=== PATIENT | male | born 1950 | race Caucasian/White ===

== ENCOUNTER 2020-03-02 08:20 | Outpatient (REF) | payer MEDICARE, SELFPAY ==
[2020-03-02 10:14] LABS: Cholesterol 219 mg/dL; HDL Cholesterol 34 mg/dL; LDL Cholesterol Calculated 155 mg/dl; Triglycerides 153 mg/dL
== END 2020-03-02 08:21 | disposition home or self-care (01) ==
LOC: HO.LAB 08:20
PROVIDERS: PCP Internal Medicine; Visit Provider Internal Medicine
DX: E78.5 Hyperlipidemia, unspecified (principal)
CPT/HCPCS: 80061

== ENCOUNTER 2020-11-29 08:47 | Outpatient (REF) | payer MEDICARE, SELFPAY ==
[2020-11-29 10:24] LABS: Alanine Aminotransferase 22 U/L (0-40); Albumin Level 3.8 g/dL (3.5-5.0); Alkaline Phosphatase 87 U/L (39-117); Anion Gap 11 (12-20); Aspartate Amino Transferase 25 U/L (5-37); Bilirubin Total 0.5 mg/dL (0.0-1.0); Blood Urea Nitrogen 18 mg/dL (9-16); Calcium 9.6 mg/dL (8.4-10.2); Carbon Dioxide 28 mmol/L (22-29); Chloride 107 mmol/L (96-108); Estimated Glomerular Filt Rate > 60; Glucose Fasting 95 mg/dL (60-99); Potassium 4.9 mmol/L (3.3-5.1); Sodium 141 mmol/L (135-145); Total Protein 6.8 g/dL (6.5-8.0)
[2020-11-29 10:48] LABS: Prostate Specific Antigen 1.07 ng/mL (<0.05-4.0)
== END 2020-11-29 08:48 | disposition home or self-care (01) ==
LOC: HO.LAB 08:47
PROVIDERS: PCP Internal Medicine; Visit Provider Nurse Practitioner Family
DX: Z13.1 Encounter for screening for diabetes mellitus (principal); Z12.5 Encounter for screening for malignant neoplasm of prostate
CPT/HCPCS: 36415; 80053; 84153

== ENCOUNTER 2020-12-06 18:04 | Emergency (ER) | payer MEDICARE, SELFPAY ==
--- NOTE | ~2020-12-06 | XR_ITS ---
EXAMINATION: Right thumb CLINICAL INFORMATION: thumb vs supervisor metal hanging COMPARISON: None TECHNIQUE: Frontal view of the hand. 2 cone-down views of the right thumb. FINDINGS: There is a soft tissue laceration of the distal right thumb. There is a comminuted fracture of the distal tuft of the distal phalanx of the right thumb. There is displacement of fracture fragments. No radiopaque foreign body. XR/XR finger RT min 2V IMPRESSION: Soft tissue laceration of the distal thumb. Comminuted fracture of the distal phalanx involving the distal tuft of the thumb.
--- NOTE | 2020-12-06 18:19 | ED_ITS ---
HPI - Wound/Laceration General Chief Complaint: Wound/Laceration Stated Complaint: thumb lac Source: patient Mode of arrival: ambulatory Limitations: no limitations History of Present Illness HPI narrative: 70-year-old male presents with thumb amputation. 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 Received his last Tdap vaccine several months ago. Onset (ago): minute(s) (Within 30 minutes of arrival) Extremity Location: left: hand (thumb) Place: home Patient tetanus UTD: Yes Context: accidental Associated symptoms: pain Treatments prior to arrival: bandage Related Data Previous Rx's Medication Instructions Recorded clonazepam 0.5 mg tablet 0.5 mg PO TID #30 tab 07/09/20 clotrimazole-betamethasone 1 1 appl TOPICAL BID 14 Days #45 g 07/09/20 %-0.05 % topical cream vardenafil 20 mg tablet (Levitra) 20 mg PO DAILY #30 tab 09/20/20 amoxicillin 875 mg-potassium 1 tab PO Q12H 10 Days #20 tab 12/06/20 clavulanate 125 mg tablet (Augmentin) oxycodone 5 mg tablet 5 mg PO Q4H PRN #30 tab 12/06/20 Allergies Allergy/AdvReac Type Severity Reaction Status Date / Time acetaminophen [Tylenol] Allergy Unknown rash Verified 11/30/20 10:39 aspirin Allergy Unknown bruising Verified 11/30/20 10:39 atorvastatin Allergy Unknown muscle Verified 11/30/20 10:39 aches, forgetfulness glipizide Allergy Unknown anxiety Verified 11/30/20 10:39 Review of Systems Review of Systems: Constitutional: No Fever, No Chills ENT/Mouth: No Ear Pain, No Hoarseness, No sore throat Eyes: No Eye Pain, No Swelling, No Redness, No Foreign Body Cardiovascular: No Chest Pain, No SOB Respiratory: No Cough, No Dyspnea Gastrointestinal: No Nausea, No Vomiting, No Diarrhea, No abdominal Pain Genitourinary: No Dysuria, No Hematuria Musculoskeletal: positive left thumb pain and amputation, No Myalgias, No Joint Swelling Skin: No Skin lacerations, No rash Neuro: No Weakness, No Numbness, No Paresthesias, No Loss of Consciousness, No Dizziness, No Headache Psych: No Anxiety/Panic, No Depression Heme/Lymph: no easy bruising, no Lymphadenopathy Endocrine: No Polyuria, No Polydipsia Yes all other systems are reviewed and are negative [facility] Past Medical History Attestation statement: The following information was validated with the patient. Source: old records reviewed Medical History Hyperlipidemia Obesity Screening for colon cancer Screening for diabetes mellitus Screening for prostate cancer Surgical History History of cholecystectomy History of colonoscopy History of repair of rotator cuff History of surgery on arm History of tooth extraction Family History Family History Father CVD (cardiovascular disease) Mother Stroke Diabetes Brother Coronary artery sclerosis Social History Social History Housing: House Alcohol intake: never Patient Tobacco Use Status: Current everyday Tobacco user e-Cigarette/Vaping Use: Never Used Second Hand Smoke Exposure: No Advance Directives: No Advance Directives Information Provided: Yes service: No Current occupational status: retired Physical Exam Vital Signs: Vital Signs: Last Vital Signs Temp 98.1 F 12/06/20 18:22 Pulse 58 12/06/20 20:49 Resp 17 12/06/20 20:49 BP 162/88 H 12/06/20 20:49 Pulse Ox 98 12/06/20 20:49 Body Mass Index 35.1 Appearance: Alert. Oriented X3. No acute distress. Eyes: Pupils equal, round and reactive to light. ENT: Pharynx normal. Neck: Normal inspection. Neck supple. CVS: Normal heart rate and rhythm. Pulses normal. Respiratory: No respiratory distress. Breath sounds normal. Abdomen: Soft and nontender. Skin: Skin warm and dry. Normal skin color. Normal skin turgor. Extremities: Left thumb amputation above the IPJ with visible bone. Neuro: No motor deficit. No sensory deficit. Cranial nerves 2-12 intact. 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 Tdap vaccine has been updated approximately 3 months ago. X-rays indicate comminuted displaced fracture, will give IV Ancef, p.o. antibiotics and pain management to go home. I did discuss this case in detail with Dr. Echeverria, hand surgeon. Plan of care is for copious irrigation, Xeroform dressing, Sandra Kerlix, antibiotics IV and p.o. with pain management and patient will follow-up in the office for surgery. Patient verbalized understanding of and agrees to plan of care discharge home. Consultations Consultation #1: Jacki Time: 19:13 MDM - Wound/Laceration MDM Narrative Medical decision making narrative: Distal thumb amputation Differential Diagnosis Differential diagnosis: Likely laceration Medical Records Attestation: I reviewed the patient's medical records. Lab Data Attestation: I reviewed the patient's lab results. Result diagrams: 12/06/20 20:05 12/06/20 20:05 Labs: Lab Results 12/06/20 12/06/20 12/06/20 Range/Units 20:05 20:05 20:05 WBC 7.2 (4.8-10.8) X10*3/uL RBC 4.97 (4.60-5.80) X10*6/uL Hgb 14.4 (14.0-18.0) g/dl Hct 42.8 (42-52) % MCV 86.1 (80-98) fL MCH 29.0 (27.0-33.0) pg MCHC 33.6 (31.0-36.0) g/dl RDW 13.2 (11.0-16.0) % Plt Count 286 (160-400) X10*3/uL MPV 8.9 L (9.4-12.4) fL Immature Gran % (Auto) 0.3 (0.0-0.4) % Neut % (Auto) 57.2 (45-73) % Lymph % (Auto) 28.5 (20-40) % Cooper % (Auto) 11.1 H (2-11) % Eos % (Auto) 1.9 (0-4) % Baso % (Auto) 1.0 (0-2) % Lymph # (Auto) 2.1 (1.2-4.9) X10*3/uL Cooper # (Auto) 0.8 (0.1-1.2) X10*3/uL Eos # (Auto) 0.1 (0.0-0.4) X10*3/uL Baso # (Auto) 0.1 (0.0-0.2) X10*3/uL Abs Immat Gran (auto) 0.02 (0.00-0.03) X10*3/uL Absolute Neuts (auto) 4.1 (2.0-8.3) X10*3/uL Absolute Nucleated RBC 0.000 (0.0-0.012) X10*3/uL Nucleated RBC % (auto) 0.0 (0.0-0.2) /100WBC PT 11.4 (9.9-13.0) SEC INR 1.0 (0.9-1.1) APTT 31.7 (24.1-38.0) SEC Sodium 142 (135-145) mmol/L Potassium 4.1 (3.3-5.1) mmol/L Chloride 109 H (96-108) mmol/L Carbon Dioxide 23 (22-29) mmol/L Anion Gap 14 (12-20) BUN 16 (9-16) mg/dL Creatinine 0.78 (0.5-1.4) mg/dL Estim Creat Clear Calc 95.0 Estimated GFR > 60 Random Glucose 97 (60-115) mg/dL Calcium 9.2 (8.4-10.2) mg/dL COVID-19 ([facility]) (Negative) COVID-19 Clin Com 12/06/20 Range/Units 22:10 WBC (4.8-10.8) X10*3/uL RBC (4.60-5.80) X10*6/uL Hgb (14.0-18.0) g/dl Hct (42-52) % MCV (80-98) fL MCH (27.0-33.0) pg MCHC (31.0-36.0) g/dl RDW (11.0-16.0) % Plt Count (160-400) X10*3/uL MPV (9.4-12.4) fL Immature Gran % (Auto) (0.0-0.4) % Neut % (Auto) (45-73) % Lymph % (Auto) (20-40) % Cooper % (Auto) (2-11) % Eos % (Auto) (0-4) % Baso % (Auto) (0-2) % Lymph # (Auto) (1.2-4.9) X10*3/uL Cooper # (Auto) (0.1-1.2) X10*3/uL Eos # (Auto) (0.0-0.4) X10*3/uL Baso # (Auto) (0.0-0.2) X10*3/uL Abs Immat Gran (auto) (0.00-0.03) X10*3/uL Absolute Neuts (auto) (2.0-8.3) X10*3/uL Absolute Nucleated RBC (0.0-0.012) X10*3/uL Nucleated RBC % (auto) (0.0-0.2) /100WBC PT (9.9-13.0) SEC INR (0.9-1.1) APTT (24.1-38.0) SEC Sodium (135-145) mmol/L Potassium (3.3-5.1) mmol/L Chloride (96-108) mmol/L Carbon Dioxide (22-29) mmol/L Anion Gap (12-20) BUN (9-16) mg/dL Creatinine (0.5-1.4) mg/dL Estim Creat Clear Calc Estimated GFR Random Glucose (60-115) mg/dL Calcium (8.4-10.2) mg/dL COVID-19 ([facility]) Negative (Negative) COVID-19 Clin Com See Note Imaging Data Right thumb x-ray: Attestation: I personally reviewed and interpreted this imaging study as follows: Radiologist's impression: EXAMINATION: Right thumb CLINICAL INFORMATION: 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 COMPARISON: None? TECHNIQUE: Frontal view of the hand. 2 cone-down views of the right thumb. FINDINGS: There is a soft tissue laceration of the distal right thumb. There is a comminuted fracture of the distal tuft of the distal phalanx of the right thumb. There is displacement of fracture fragments. No radiopaque foreign body.? XR/XR finger RT min 2V IMPRESSION: Soft tissue laceration of the distal thumb. Comminuted fracture of the distal phalanx involving the distal tuft of the thumb. Procedures Nerve Block Nerve Block 1: Local Anesthetic: lidocaine 2% Amount of anesthesia used (mL): 8 Side: right Nerve Blocks: digital Procedure Successful: Yes Patient Tolerated Procedure: well and no complications Discharge Plan Discharge Clinical Impression: Amputation of thumb, right Qualifiers: Encounter type: initial encounter Qualified Code(s): S68.011A - Complete traumatic metacarpophalangeal amputation of right thumb, initial encounter Patient Disposition: Home, Self-Care Instructions: Finger Amputation (ED) Additional Instructions: You were evaluated for a thumb amputation. Please keep the dressing in place. Do not remove this dressing or get it wet until you see the surgeon on Thursday. I discussed her case with Dr. Echeverria, she is a hand surgeon. She is expecting your call tomorrow morning. When you call the office, please let them know that Dr. Echeverria knows about her case, and needs to see you immediately. I prescribed oxycodone, oxycodone is a narcotic and has high risk for addiction and abuse. Do not drive or operate machinery while taking this medication. Oxycodone is constipating. Please drink plenty of fluids and use Colace or MiraLax as needed to help with bowel movements. Your injury will be extraordinarily painful. Please elevate your hand above heart level to help reduce swelling and pain. Please take Augmentin twice a day as directed. If you develop fevers, chills, sweating, or any kind of symptoms indicating infection please return to the emergency department immediately. Thank you for choosing this emergency department for evaluation. Please follow-up with primary care physician as needed. Return to the emergency department for any new, concerning, or worsening symptoms. Prescriptions: New oxycodone 5 mg tablet 5 mg PO Q4H PRN (Reason: pain) Qty: 30 RF: 0 amoxicillin-pot clavulanate [Augmentin] 875-125 mg tablet 1 tab PO Q12H 10 Days Qty: 20 RF: 0 No Action vardenafil [Levitra] 20 mg tablet 20 mg PO DAILY Qty: 30 RF: 6 clonazepam 0.5 mg tablet 0.5 mg PO TID Qty: 30 RF: 0 clotrimazole-betamethasone 1-0.05 % cream 1 appl topical BID 14 Days Qty: 45 RF: 0 Referrals: Rose Echeverria MD [Physician] - 2 days (Right thumb amputation) Interventions: ED Discharge Assessment Last Done: 12/06/20 22:21 Discharge Date/Time: 12/06/20 22:22
[2020-12-06 18:22] VITALS: BP 166/76; PULSE 73; RESP 16; TEMP 36.7; O2SAT 98; BMI 35.1
[2020-12-06 20:17] LABS: MANUAL DIFF FLAG NO
[2020-12-06 20:21] LABS: Basophils Absolute Auto 0.1 X10*3/uL (0.0-0.2); Eosinophils Absolute Auto 0.1 X10*3/uL (0.0-0.4); Eosinophils Percent Auto 1.9 % (0-4); Hematocrit 42.8 % (42-52); Hemoglobin 14.4 g/dl (14.0-18.0); Imm Gran Abs Auto 0.02 X10*3/uL (0.00-0.03); Imm Gran Pct Auto 0.3 % (0.0-0.4); Lymphocytes Absolute Auto 2.1 X10*3/uL (1.2-4.9); Lymphocytes Percent Auto 28.5 % (20-40); Mean Corpuscular HGB Conc 33.6 g/dl (31.0-36.0); Mean Corpuscular Volume 86.1 fL (80-98); Mean Platelet Volume 8.9 fL (9.4-12.4); Monocytes Absolute Auto 0.8 X10*3/uL (0.1-1.2); Monocytes Percent Auto 11.1 % (2-11); Neutrophils Absolute Auto 4.1 X10*3/uL (2.0-8.3); Neutrophils Percent Auto 57.2 % (45-73); Platelet Count 286 X10*3/uL (160-400); Red Blood Count 4.97 X10*6/uL (4.60-5.80); Red Cell Distribution Width 13.2 % (11.0-16.0); White Blood Count 7.2 X10*3/uL (4.8-10.8)
[2020-12-06 20:25] LABS: Prothrombin Time 11.4 SEC (9.9-13.0)
[2020-12-06 20:28] LABS: Partial Thromboplastin Time 31.7 SEC (24.1-38.0)
[2020-12-06] MEDS: Lidocaine HCl 2 % MPF 5 ML VIAL 10 ML SUBCUT (20:38)
[2020-12-06 20:49] VITALS: BP 162/88; PULSE 58; RESP 17; O2SAT 98
--- NOTE | 2020-12-06 20:54 | PC.NURSE ---
Pt resting on stretcher in NAD, breathing with ease on RA. Pt aaox4, reports mild pain in R thumb. Pt pain meds used in wound site by provider Sheryl HEREDIA. Pt medicated with abx by this RN as charted. Pt R thumb dressed by provider, no drainage noted by this RN. Pt stretcher low locked, rails raised, call [place] within reach.
[2020-12-06 20:56] LABS: Anion Gap 14 (12-20); Blood Urea Nitrogen 16 mg/dL (9-16); Calcium 9.2 mg/dL (8.4-10.2); Carbon Dioxide 23 mmol/L (22-29); Chloride 109 mmol/L (96-108); Estimated Glomerular Filt Rate > 60; Glucose Random 97 mg/dL (60-115); Potassium 4.1 mmol/L (3.3-5.1); Sodium 142 mmol/L (135-145)
[2020-12-06 22:36] LABS: COVID-19 Test Negative (Negative)
== END 2020-12-06 22:22 | disposition home or self-care (01) ==
PROVIDERS: Nurse Practitioner Family; Emergency Provider Emergency Medicine; PCP Internal Medicine
DX: S68.011A Complete traumatic metacarpophalangeal amputation of right thumb, initial encounter (principal); W31.89XA Contact with other specified machinery, initial encounter; Y93.89 Activity, other specified; Y92.9 Unspecified place or not applicable; Y99.9 Unspecified external cause status; F17.210 Nicotine dependence, cigarettes, uncomplicated; Z20.822 Contact with and (suspected) exposure to COVID-19
CPT/HCPCS: 36415; 64450; 73140; 80048; 85025; 85610; 85730; 87635; 96365; 99284; J0690

== ENCOUNTER → 2020-12-10 11:39 | Outpatient (BNVA) | payer MEDICARE, SELFPAY | PROVIDERS: Visit Provider Orthopaedic Surgery | DX: S68.521D Partial traumatic transphalangeal amputation of right thumb, subsequent encounter (principal) | CPT/HCPCS: 99202 ==

== ENCOUNTER 2020-12-11 05:57 | Day surgery (SDC) | payer MEDICARE, SELFPAY ==
[2020-12-11 06:22] VITALS: BP 132/72; PULSE 59; RESP 16; TEMP 36.3; O2SAT 97; BMI 35.1
--- NOTE | 2020-12-11 07:05 | HO.ANESPROP2 ---
[facility] Active Problems Active Problems: All Active Problems (Updated 12/10/20 @ 13:25 by Rose Echeverria MD) Partial traumatic amputation of left thumb through phalanx (Acute) Obesity (Acute) Sebaceous cyst (Acute) Screening for colon cancer (Acute) Adult general medical exam (Acute) Screening for prostate cancer (Acute) Screening for diabetes mellitus (Acute) Migraines (Acute) Skin nodule (Acute) Hyperlipidemia (Acute) Past Medical History Medical History Hyperlipidemia Obesity Screening for colon cancer Screening for diabetes mellitus Screening for prostate cancer Family History Family History Father CVD (cardiovascular disease) Mother Stroke Diabetes Brother Coronary artery sclerosis Family history of problems with anesthesia: No Surgical History Surgical History History of cholecystectomy History of colonoscopy History of repair of rotator cuff History of surgery on arm History of tooth extraction History of Problems with Anesthesia: No Social History Social History Housing: House Alcohol intake: never Patient Tobacco Use Status: Current everyday Tobacco user Tobacco use type: Pipe e-Cigarette/Vaping Use: Never Used Second Hand Smoke Exposure: No Use of substances other than those prescribed or required for medical reasons: No Are you DNR?: No Advance Directives: No Advance Directives Information Provided: Yes service: No Current occupational 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 Allergies Allergy/AdvReac Type Severity Reaction Status Date / Time acetaminophen [Tylenol] Allergy Unknown rash Verified 12/10/20 12:20 aspirin Allergy Unknown bruising Verified 12/10/20 12:20 atorvastatin Allergy Unknown muscle Verified 12/10/20 12:20 aches, forgetfulness glipizide Allergy Unknown anxiety Verified 12/10/20 12:20 Exam Exam Date and Time: December 11, 2020 0705 Height,Weight and Vital Signs: Height 5 ft 5 in Weight 95.708 kg Last Vital Signs Temp 97.3 F 12/11/20 06:22 Pulse 59 12/11/20 06:22 Resp 16 12/11/20 06:22 BP 132/72 12/11/20 06:22 Pulse Ox 97 12/11/20 06:22 Airway Mallampati Class: II TM Dist: >3cm Neck ROM: Full Denture: Upper Assessment and Plan Assessment Anesthesia Assessment: Anesthesia Plan Discussed and Chart Reviewed Final Anesthetic Review Family History of Problems with Anesthesia: No History of Problems with Anesthesia: No NPO: Yes ASA Class: II Final Preanesthetic Review: No Changes in Pt Med Stat, Meds/Allgs Chart Reviewed, Consent Obtained/Reviewed and Anes Risks/Benef Reviewed Patient Risk: Low Procedure Risk: Low Assessment/Block/Sedation in SS: Assess/Block/Sedation-SS Anesthetic Plan Anesthetic Plan: MAC: Disposition: Standard PACU
--- NOTE | 2020-12-11 07:45 | MHC.SHP ---
Pre-Procedural Eval Section A Date of Service: 12/11/20 The patient is an INPATIENT: No Changes since office visit: No Cold of Flu in the past 2 weeks, No New Medical Problems, No Changes in Medication and No Patient answered all questions The History & Physical has been completed within 30 days and I have reviewed it.: Yes Section B Chief Complaint: partial traumatic right thumb amputation Allergies: Allergies Allergy/AdvReac Type Severity Reaction Status Date / Time acetaminophen [Tylenol] Allergy Unknown rash Verified 12/10/20 12:20 aspirin Allergy Unknown bruising Verified 12/10/20 12:20 atorvastatin Allergy Unknown muscle Verified 12/10/20 12:20 aches, forgetfulness glipizide Allergy Unknown anxiety Verified 12/10/20 12:20 Plan I have reviewed the history and physical and performed a pertinent physical examination on my patient. No changes have occurred unless specified.
--- NOTE | 2020-12-11 07:46 | W.PM.OPN ---
Operative Note Operative Note Date of Service: 12/11/20 Narrative: Operative Note Narrative: Preop diagnosis: 1. Right thumb partial amputation Postop diagnosis: Same Procedure: 1. Right thumb revision amputation, through distal phalanx 2. Excision of nailbed sterile and germinal nail matrices Surgeon: Rose Echeverria MD Anesthesia: Mac plus regional block Findings: Distal phalanx level amputation. Most of the sterile matrix was gone, most of the germinal matrix was present but without enough bone left to support a nail without developing a hook nail. Implants: None Tourniquet time: 41 minutes EBL: 5.0 ml Specimen: None Drains: None Complications: None Disposition: Brought to the recovery room in stable condition Plan: Continue antibiotics until finished Follow-up in 10-14 days for wound check Anticipate suture removal in 3-4 weeks. Indications: The patient is a 70 year old man with right thumb partial amputation caused by a outer diameter grinder . The risks and benefits of operative treatment, including but not limited to risk of damage to blood vessels, nerves, tendons, infection, recurrence, persistent pain or numbness, incomplete resolution of preoperative symptoms, or need for further surgery were discussed with the patient and they wished to proceed with surgery. Procedure: Once consent was obtained patient was brought back to the operating suite and placed in the operating table in a supine position. Perioperative antibiotics and anesthesia was administered by the anesthesia team. A tourniquet was applied to the proximal aspect of the right upper extremity and the limb was prepped and draped in a standard surgical fashion. A digital block was performed using some 0.5% plain Marcaine. The limb was elevated exsanguinated with Esmarch bandage and the tourniquet inflated to 250 mm of mercury for a total tourniquet time of 41 minutes. The patient essentially had an avulsion of the soft tissues from the distal aspect of the thumb including the entire nail plate and most of the underlying nail bed as well as the distal half of the pad of the thumb. The wound was sharply debrided of devitalized tissue and the wound irrigated with normal saline. There was approximately 7-8 mm of bone without soft tissue coverage protruding from the wound. Most of the sterile nail matrix was gone, and most of the germinal matrix was present but without adequate bony support to grow a nail without a hook nail. I made 2 small oblique incisions at the corners of the remaining eponychial fold. The eponychial fold was then retracted so that I could remove the germinal matrix. The germinal matrix was removed using a 15. Blade and also a small rongeur. The distal phalanx was then shortened using a bone biter and a rongeur. The rongeur was also used to round the edges of the bone. The end of the radial digital nerve was identified in the tissue and cut short using tenotomy scissors. The ulnar digital nerve and was not identified, and is likely shortened within the tissues after the tip of the finger was ripped off. The wound was again copiously irrigated with normal saline. Tenotomy scissors and a 15 blade were then used to remove 1 mm from the skin edges to freshen them to facilitate wound healing. The volar flap of tissue was then brought around the end of the bone and the skin edges were reapproximated to the dorsal skin edges using 4-0 Prolene suture material. At this point the tourniquet was deflated and hemostasis obtained with a brief period of local pressure and sterile dressing was then applied. The patient appears to have tolerated the procedure well and with no complications. All digits were well vascularized at the conclusion of the case.
[2020-12-11 09:06] VITALS: BP 118/62; PULSE 61; RESP 16; TEMP 36.8; O2SAT 97
[2020-12-11 09:21] VITALS: BP 119/61; PULSE 55; RESP 16; O2SAT 95
[2020-12-11 09:36] VITALS: BP 116/64; PULSE 56; RESP 18; O2SAT 98
[2020-12-11 09:49] VITALS: BP 131/63; PULSE 55; RESP 18; TEMP 36.7; O2SAT 98
== END 2020-12-11 10:25 | disposition home or self-care (01) ==
PROVIDERS: PCP Internal Medicine; Visit Provider Orthopaedic Surgery
PROC: (CPT 26952; principal; 2020-12-11 07:30)
DX: S68.521A Partial traumatic transphalangeal amputation of right thumb, initial encounter (principal); W31.89XA Contact with other specified machinery, initial encounter; Y93.89 Activity, other specified; Y92.9 Unspecified place or not applicable; Y99.8 Other external cause status; E78.5 Hyperlipidemia, unspecified; E66.9 Obesity, unspecified; Z68.35 Body mass index [BMI] 35.0-35.9, adult; F17.290 Nicotine dependence, other tobacco product, uncomplicated; Z88.8 Allergy status to other drugs, medicaments and biological substances
CPT/HCPCS: 26952; J0690; J2405; J3010

== ENCOUNTER 2020-12-17 11:09 | Outpatient (REF) | payer MEDICARE, SELFPAY ==
--- NOTE | ~2020-12-17 | XR_ITS ---
EXAMINATION: XR HAND, RIGHT CLINICAL INFORMATION: Pain. Fracture. COMPARISON: Right finger radiographs dated 12/05/2020. TECHNIQUE: PA, lateral, and oblique views of the right hand. FINDINGS: Interval amputation through the distal aspect of the 1st distal phalanx. No associated osseous erosion or periosteal reaction. No radiopaque foreign body. Joint space narrowing with small marginal osteophytes redemonstrated throughout the carpus, unchanged. XR/XR hand RT min 3V IMPRESSION: Interval amputation through the distal aspect of the 1st distal phalanx. No acute osseous abnormality. No radiopaque foreign body.
== END 2020-12-17 11:10 | disposition home or self-care (01) ==
LOC: HO.HOSX 11:09
PROVIDERS: Visit Provider Orthopaedic Surgery
DX: S68.522D Partial traumatic transphalangeal amputation of left thumb, subsequent encounter (principal)
CPT/HCPCS: 73130; 99212

== ENCOUNTER → 2020-12-31 13:33 | Outpatient (BNVA) | payer MEDICARE, SELFPAY | PROVIDERS: PCP Internal Medicine; Visit Provider Orthopaedic Surgery | DX: S68.522D Partial traumatic transphalangeal amputation of left thumb, subsequent encounter (principal) | CPT/HCPCS: 99212 ==

== ENCOUNTER 2021-03-20 08:39 | Day surgery (SDC) | payer MEDICARE, SELFPAY ==
--- NOTE | 2021-03-19 14:49 | HO.ANESPROP2 ---
Documented by User: Jo Vital NP 03/19/21 14:50 HPI - Anesthesia Eval Consult details Narrative: 70yo M for Colonoscopy s/p thumb amp 11/2020 with MAC PMFSH Active Problems Active Problems: All Active Problems (Updated 03/12/21 @ 12:33 by Aby Cooney, RN) Skin nodule (Acute) Migraines (Acute) Adult general medical exam (Acute) Sebaceous cyst (Acute) Partial traumatic amputation of left thumb through phalanx (Acute) Anxiety (Acute) Obesity (Acute) Screening for colon cancer (Acute) Screening for prostate cancer (Acute) Screening for diabetes mellitus (Acute) Hyperlipidemia (Acute) Past Medical History Medical History (Updated 03/12/21 @ 12:33 by Aby Cooney RN) Anxiety Hyperlipidemia Migraine Obesity Osteoporosis Screening for colon cancer Screening for diabetes mellitus Screening for prostate cancer Family History Family History Father CVD (cardiovascular disease) Mother Stroke Diabetes Brother Coronary artery sclerosis Family history of problems with anesthesia: No Surgical History Surgical History (Updated 03/12/21 @ 12:13 by Aby Cooney RN) History of amputation of finger of right hand History of cholecystectomy History of colonoscopy History of repair of rotator cuff History of surgery on arm History of tooth extraction History of Problems with Anesthesia: No Social History Social History Housing: House Alcohol intake: never Patient Tobacco Use Status: Current someday Tobacco user Tobacco use type: Pipe e-Cigarette/Vaping Use: Never Used Second Hand Smoke Exposure: No Use of substances other than those prescribed or required for medical reasons: No Are you DNR?: No Advance Directives: No Advance Directives Information Provided: Yes Recently lost weight without trying: No How much weight loss: 2-13 pounds Nutrition Risks: No Nutritional Risk service: Yes Current occupational 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 Allergies Allergy/AdvReac Type Severity Reaction Status Date / Time acetaminophen [Tylenol] Allergy Unknown rash Verified 03/12/21 12:33 aspirin Allergy Unknown bruising Verified 03/12/21 12:33 atorvastatin Allergy Unknown muscle Verified 03/12/21 12:33 aches, forgetfulness glipizide Allergy Unknown anxiety Verified 03/12/21 12:33 Exam Exam Date and Time: March 19, 2021 1449 Pertinent Lab Results Pertinent Lab Results: Laboratory Tests 12/06/20 12/06/20 20:05 20:05 WBC 7.2 Hgb 14.4 Hct 42.8 Plt Count 286 Sodium 142 Potassium 4.1 Chloride 109 H Carbon Dioxide 23 BUN 16 Creatinine 0.78 Assessment and Plan Assessment Anesthesia Assessment: Chart Reviewed Final Anesthetic Review Family History of Problems with Anesthesia: No History of Problems with Anesthesia: No Documented by User: Zaira Diallo MD 03/20/21 09:08 [facility] Past Medical History Medical History (Updated 03/12/21 @ 12:33 by Aby Cooney RN) Anxiety Hyperlipidemia Migraine Obesity Osteoporosis Screening for colon cancer Screening for diabetes mellitus Screening for prostate cancer Family History Family History Father CVD (cardiovascular disease) Mother Stroke Diabetes Brother Coronary artery sclerosis Surgical History Surgical History (Updated 03/12/21 @ 12:13 by Aby Cooney RN) History of amputation of finger of right hand History of cholecystectomy History of colonoscopy History of repair of rotator cuff History of surgery on arm History of tooth extraction Social History Social History Housing: House Alcohol intake: never Patient Tobacco Use Status: Current someday Tobacco user Tobacco use type: Pipe e-Cigarette/Vaping Use: Never Used Second Hand Smoke Exposure: No Use of substances other than those prescribed or required for medical reasons: No Are you DNR?: No Advance Directives: No Advance Directives Information Provided: Yes Recently lost weight without trying: No How much weight loss: 2-13 pounds Nutrition Risks: No Nutritional Risk service: Yes Current occupational 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 Allergies Allergy/AdvReac Type Severity Reaction Status Date / Time acetaminophen [Tylenol] Allergy Unknown rash Verified 03/12/21 12:33 aspirin Allergy Unknown bruising Verified 03/12/21 12:33 atorvastatin Allergy Unknown muscle Verified 03/12/21 12:33 aches, forgetfulness glipizide Allergy Unknown anxiety Verified 03/12/21 12:33 Exam Airway Mallampati Class: II TM Dist: >3cm Neck ROM: Full Denture: Upper Partial: Lower Heart: rrr Lungs: cta Assessment and Plan Assessment Anesthesia Assessment: Anesthesia Plan Discussed and Chart Reviewed Final Anesthetic Review NPO: Yes ASA Class: III Final Preanesthetic Review: No Changes in Pt Med Stat, Meds/Allgs Chart Reviewed and Consent Obtained/Reviewed Patient Risk: Intermediate Procedure Risk: Intermediate Anesthetic Plan Anesthetic Plan: MAC: Disposition: Standard PACU
[2021-03-20 08:52] VITALS: BMI 34.0
[2021-03-20 09:07] VITALS: BP 144/72; PULSE 61; RESP 16; TEMP 36.7; O2SAT 98
[2021-03-20] MEDS: Lactated Ringers 1,000 ML 100 ML IVCONT (09:20)
--- NOTE | 2021-03-20 11:17 | PM.OP ---
Brief Operative Note Date of Service: 03/20/21 Pre-op diagnosis: Screening Post-op diagnosis: other (Colon polyp) Procedure: Colonoscopy to the cecum and TI with bx/removal of polyp Surgeon: Dawson Osborn Anesthesia: MAC Was an Primer Inserting Machine Operator used for this Procedure?: No Estimated blood loss (mL): 2.0 Pathology: other (A. Transverse colon polyp) Condition: stable Disposition: PACU
[2021-03-20 11:19] VITALS: BP 122/56; PULSE 60; RESP 12; TEMP 37.3; O2SAT 98
[2021-03-20 11:34] VITALS: BP 120/66; PULSE 63; RESP 17; TEMP 36.1; O2SAT 98
--- NOTE | 2021-03-21 00:53 | OP_ITS ---
SURGEON: Dawson Osborn MD INDICATIONS: The patient presents for evaluation of colorectal cancer screening. Full consent has been obtained from him for this, including risks of bleeding and perforation. PREOPERATIVE DIAGNOSIS: Colorectal cancer screening. POSTOPERATIVE DIAGNOSIS: PROCEDURE PERFORMED: Colonoscopy to the cecum and terminal ileum with biopsy and removal of polyp. ESTIMATED BLOOD LOSS: COMPLICATIONS: ANESTHESIA: Monitored anesthesia care. ASSISTANTS: SPECIMENS: POSTOPERATIVE DIAGNOSES: Colorectal cancer screening, small colon polyp, diverticulosis. DESCRIPTION OF PROCEDURE: The patient was placed in the left lateral decubitus position. The digital rectal exam revealed no abnormalities. The Olympus video pediatric colonoscope was entered into the rectum and advanced to the cecum with the assistance of abdominal wall pressure. Once in the cecum, I did identify normal-appearing cecal pouch with appendiceal orifice and a normal-appearing ileocecal valve. The terminal ileum was cannulated and appeared normal. The scope was withdrawn back in the colon. The entire cecum and ileocecal valve appeared normal. The scope was slowly withdrawn assessing all mucosal surfaces carefully. Preparation was excellent. In the transverse colon, was approximately 3 or 4 mm polyp, which was biopsied and completely removed with cold biopsy forceps. I did not visualize any other polyps, colitis, nor angiodysplasia. In the rectum, scope was retroflexed visualizing minimal internal hemorrhoidal tissue, but no other pathology. The rectal mucosa appeared normal. The scope was straightened and withdrawn from the patient. He tolerated procedure well and was returned to recovery area in stable condition. IMPRESSION: 1. Small colon polyp, status post biopsy and removal. 2. Diverticulosis. 3. Internal hemorrhoids. PLAN: The results of the pathology will be checked. I would recommend a repeat colonoscopy in 5 years for further surveillance. He will otherwise see me on a p.r.n. basis. MD BART Manning/ANTONI / [id number]
== END 2021-03-20 12:18 | disposition home or self-care (01) ==
PROVIDERS: PCP Internal Medicine; Visit Provider Internal Medicine
PROC: 0DJD8ZZ Inspection of Lower Intestinal Tract, Via Natural or Artificial Opening Endoscopic (ICD-10-PCS; CPT 45378; principal; 2021-03-20 09:40)
DX: Z12.11 Encounter for screening for malignant neoplasm of colon (principal); Z86.010 Personal history of colon polyps; D12.3 Benign neoplasm of transverse colon; K57.30 Diverticulosis of large intestine without perforation or abscess without bleeding; K64.8 Other hemorrhoids; E78.5 Hyperlipidemia, unspecified; M81.0 Age-related osteoporosis without current pathological fracture; Z90.49 Acquired absence of other specified parts of digestive tract; Z79.899 Other long term (current) drug therapy
CPT/HCPCS: 45380; 88305

== ENCOUNTER 2021-06-12 13:47 | Outpatient (REF) | payer MEDICARE, SELFPAY ==
[2021-06-12 14:14] LABS: MANUAL DIFF FLAG NO
[2021-06-12 14:59] LABS: Basophils Absolute Auto 0.1 X10*3/uL (0.0-0.2); Basophils Percent Auto 1.1 % (0-2); Eosinophils Absolute Auto 0.1 X10*3/uL (0.0-0.4); Eosinophils Percent Auto 1.3 % (0-4); Hematocrit 43.9 % (42.0-52.0); Hemoglobin 14.1 g/dl (14.0-18.0); Imm Gran Abs Auto 0.01 X10*3/uL (0.00-0.03); Imm Gran Pct Auto 0.2 % (0.0-0.4); Lymphocytes Absolute Auto 2.1 X10*3/uL (1.2-4.9); Lymphocytes Percent Auto 37.9 % (20-40); Mean Corpuscular HGB Conc 32.1 g/dl (31.0-36.0); Mean Corpuscular Hemoglobin 28.2 pg (27.0-33.0); Mean Corpuscular Volume 87.8 fL (80.0-98.0); Mean Platelet Volume 9.6 fL (9.4-12.4); Monocytes Absolute Auto 0.6 X10*3/uL (0.1-1.2); Monocytes Percent Auto 10.9 % (2-11); Neutrophils Absolute Auto 2.7 x10*3/uL (2.0-8.3); Neutrophils Percent Auto 48.6 % (45-73); Platelet Count 298 X10*3/uL (160-400); Red Cell Distribution Width 13.8 % (11.0-16.0); White Blood Count 5.6 X10*3/uL (4.8-10.8)
[2021-06-12 15:24] LABS: Alanine Aminotransferase 17 U/L (0-40); Albumin Level 3.9 g/dL (3.5-5.0); Alkaline Phosphatase 101 U/L (39-117); Anion Gap 14 (12-20); Aspartate Amino Transferase 26 U/L (5-37); Bilirubin Total 0.6 mg/dL (0.0-1.0); Blood Urea Nitrogen 16 mg/dL (9-16); Calcium 9.5 mg/dL (8.4-10.2); Carbon Dioxide 24 mmol/L (22-29); Chloride 107 mmol/L (96-108); Cholesterol 234 mg/dL; Estimated Glomerular Filt Rate > 60; Glucose Fasting 84 mg/dL (60-99); HDL Cholesterol 36 mg/dL; LDL Cholesterol Calculated 170 mg/dl; Potassium 4.5 mmol/L (3.3-5.1); Sodium 140 mmol/L (135-145); Total Protein 7.2 g/dL (6.5-8.0); Triglycerides 141 mg/dL
== END 2021-06-12 13:48 | disposition home or self-care (01) ==
LOC: HO.LAB 13:47
PROVIDERS: PCP Internal Medicine; Visit Provider Internal Medicine
DX: Z00.00 Encounter for general adult medical examination without abnormal findings (principal); Z13.0 Encounter for screening for diseases of the blood and blood-forming organs and certain disorders involving the immune mechanism
CPT/HCPCS: 36415; 80053; 80061; 84443; 85025

== ENCOUNTER 2021-07-24 09:02 | Outpatient (REF) | payer MEDICARE, SELFPAY ==
--- NOTE | ~2021-07-24 | US_ITS ---
EXAMINATION: LEFT LOWER EXTREMITY DUPLEX CLINICAL INFORMATION: Peripheral vascular disease. TECHNIQUE: Real-time ultrasound and Doppler techniques (integrating B-mode 2-D vascular images, Doppler spectral analysis and color flow Doppler imaging) were utilized to interrogate the lower extremities. COMPARISON: None FINDINGS: LEFT LEG: Common femoral artery: 121 cm/s, biphasic Profunda femoris artery: 125 cm/s, biphasic Superficial femoral artery (proximal): 102 cm/s, biphasic Superficial femoral artery (mid): 130 cm/s, biphasic Superficial femoral artery (distal): 49 cm/s, biphasic Popliteal artery: 62.3 cm/s, biphasic Posterior tibial artery: 88.9 cm/s, biphasic US/US arterial duplex LE LT IMPRESSION: No hemodynamically significant lesions of the left lower extremity identified.
== END 2021-07-24 09:03 | disposition home or self-care (01) ==
LOC: HO.US 09:02
PROVIDERS: PCP Internal Medicine; Visit Provider Internal Medicine
DX: I73.9 Peripheral vascular disease, unspecified (principal)
CPT/HCPCS: 93926

== ENCOUNTER 2022-01-02 08:51 | Outpatient (REF) | payer MEDICARE, SELFPAY ==
[2022-01-02 09:47] LABS: Appearance Urine Clear; Color Urine Yellow; Glucose Urine UA Negative (Negative); Leukocyte Esterase Urine Small (1+) (Negative); Nitrite Urine Negative (Negative); PH 6.5 (5.0-9.0); Specific Gravity - Urine 1.015 (1.005-1.025); UMIC TRIGGER UA YES; Urine Blood Negative (Negative); Urine Ketones Negative (Negative); Urine Protein Negative (Neg-Trace)
[2022-01-02 09:58] LABS: Creatinine Urine 93.74 mg/dL; Microalbumin Urine < 5.0 mg/L
[2022-01-02 10:00] LABS: Cholesterol 159 mg/dL; HDL Cholesterol 34 mg/dL; LDL Cholesterol Calculated 105 mg/dl; Triglycerides 104 mg/dL
[2022-01-02 10:07] LABS: Bacteria Urine None Seen (None Seen); Hyaline Casts Urine 0-2 /LPF (0-2); RBC Urine 0-2 /HPF (0-2); Squamous Epithelial Cell Urine 0-2 /HPF (0-2); WBC Urine 0-5 /HPF (0-5)
== END 2022-01-02 08:52 | disposition home or self-care (01) ==
LOC: HO.LAB 08:51
PROVIDERS: PCP Internal Medicine; Visit Provider Internal Medicine
DX: Z00.00 Encounter for general adult medical examination without abnormal findings (principal); E66.01 Morbid (severe) obesity due to excess calories; E11.69 Type 2 diabetes mellitus with other specified complication
CPT/HCPCS: 36415; 80061; 81001; 82043

== ENCOUNTER 2022-06-28 09:33 | Outpatient (REF) | payer MEDICARE, SELFPAY ==
[2022-06-28 09:47] LABS: MANUAL DIFF FLAG NO
[2022-06-28 10:22] LABS: Basophils Absolute Auto 0.1 X10*3/uL (0.0-0.2); Basophils Percent Auto 1.4 % (0-2); Eosinophils Absolute Auto 0.2 X10*3/uL (0.0-0.4); Eosinophils Percent Auto 2.5 % (0-4); Hematocrit 43.4 % (42.0-52.0); Hemoglobin 14.4 g/dl (14.0-18.0); Imm Gran Abs Auto 0.02 X10*3/uL (0.00-0.03); Imm Gran Pct Auto 0.3 % (0.0-0.4); Lymphocytes Absolute Auto 2.4 X10*3/uL (1.2-4.9); Lymphocytes Percent Auto 36.6 % (20-40); Mean Corpuscular HGB Conc 33.2 g/dl (31.0-36.0); Mean Corpuscular Hemoglobin 29.3 pg (27.0-33.0); Mean Corpuscular Volume 88.4 fL (80.0-98.0); Mean Platelet Volume 9.1 fL (9.4-12.4); Monocytes Absolute Auto 0.7 X10*3/uL (0.1-1.2); Monocytes Percent Auto 11.4 % (2-11); Neutrophils Absolute Auto 3.1 x10*3/uL (2.0-8.3); Neutrophils Percent Auto 47.8 % (45-73); Platelet Count 300 X10*3/uL (160-400); Red Blood Count 4.91 X10*6/uL (4.60-5.80); Red Cell Distribution Width 13.4 % (11.0-16.0); White Blood Count 6.5 X10*3/uL (4.8-10.8)
[2022-06-28 10:45] LABS: Alanine Aminotransferase 20 U/L (0-40); Albumin Level 3.6 g/dL (3.5-5.0); Alkaline Phosphatase 91 U/L (39-117); Anion Gap 12 (12-20); Aspartate Amino Transferase 23 U/L (5-37); Bilirubin Total 0.5 mg/dL (0.0-1.0); Blood Urea Nitrogen 16 mg/dL (9-16); Calcium 9.3 mg/dL (8.4-10.2); Carbon Dioxide 24 mmol/L (22-29); Chloride 108 mmol/L (96-108); Cholesterol 236 mg/dL; Estimated Glomerular Filt Rate > 60; Glucose Fasting 88 mg/dL (60-99); HDL Cholesterol 36 mg/dL; LDL Cholesterol Calculated 177 mg/dl; Potassium 4.4 mmol/L (3.3-5.1); Sodium 140 mmol/L (135-145); Total Protein 6.4 g/dL (6.5-8.0); Triglycerides 118 mg/dL
[2022-06-28 11:16] LABS: Folate 10.4 ng/mL (> or = 4.0); Thyroid Stimulating Hormone 0.67 uIU/mL (0.32-4.0); Vitamin B12 160 pg/mL (200-900); Vitamin D 25-OH Total 6.8 ng/mL (>30)
== END 2022-06-28 09:34 | disposition home or self-care (01) ==
LOC: HO.LAB 09:33
PROVIDERS: PCP Internal Medicine; Visit Provider Internal Medicine
DX: Z13.9 Encounter for screening, unspecified (principal); D64.9 Anemia, unspecified; N28.9 Disorder of kidney and ureter, unspecified; E78.5 Hyperlipidemia, unspecified; R41.89 Other symptoms and signs involving cognitive functions and awareness; E03.9 Hypothyroidism, unspecified; E55.9 Vitamin D deficiency, unspecified
CPT/HCPCS: 36415; 80053; 80061; 82306; 82607; 82746; 84443; 85025

== ENCOUNTER 2022-10-09 08:37 | Outpatient (REF) | payer MEDICARE, SELFPAY ==
[2022-10-09 08:52] LABS: MANUAL DIFF FLAG NO
[2022-10-09 09:31] LABS: Basophils Absolute Auto 0.1 X10*3/uL (0.0-0.2); Basophils Percent Auto 1.5 % (0-2); Eosinophils Absolute Auto 0.2 X10*3/uL (0.0-0.4); Hematocrit 43.2 % (42.0-52.0); Hemoglobin 14.3 g/dl (14.0-18.0); Imm Gran Abs Auto 0.02 X10*3/uL (0.00-0.03); Imm Gran Pct Auto 0.3 % (0.0-0.4); Lymphocytes Absolute Auto 2.2 X10*3/uL (1.2-4.9); Lymphocytes Percent Auto 35.4 % (20-40); Mean Corpuscular HGB Conc 33.1 g/dl (31.0-36.0); Mean Corpuscular Volume 87.6 fL (80.0-98.0); Mean Platelet Volume 9.3 fL (9.4-12.4); Monocytes Absolute Auto 0.7 X10*3/uL (0.1-1.2); Monocytes Percent Auto 11.5 % (2-11); Neutrophils Percent Auto 48.3 % (45-73); Platelet Count 279 X10*3/uL (160-400); Red Blood Count 4.93 X10*6/uL (4.60-5.80); Red Cell Distribution Width 12.9 % (11.0-16.0); White Blood Count 6.1 X10*3/uL (4.8-10.8)
[2022-10-09 09:40] LABS: Appearance Urine Clear; Color Urine Yellow; Glucose Urine UA Negative (Negative); Leukocyte Esterase Urine Small (1+) (Negative); Nitrite Urine Negative (Negative); UMIC TRIGGER UA YES; Urine Blood Negative (Negative); Urine Ketones Negative (Negative); Urine Protein Negative (Neg-Trace)
[2022-10-09 09:54] LABS: Bacteria Urine None Seen (None Seen); Hyaline Casts Urine 0-2 /LPF (0-2); RBC Urine 0-2 /HPF (0-2); Squamous Epithelial Cell Urine 0-2 /HPF (0-2); WBC Urine 0-5 /HPF (0-5)
[2022-10-09 11:40] LABS: Alanine Aminotransferase 19 U/L (0-40); Albumin Level 3.6 g/dL (3.5-5.0); Alkaline Phosphatase 89 U/L (39-117); Anion Gap 10 (12-20); Aspartate Amino Transferase 26 U/L (5-37); Bilirubin Total 0.5 mg/dL (0.0-1.0); Blood Urea Nitrogen 18 mg/dL (9-16); Calcium 9.8 mg/dL (8.4-10.2); Carbon Dioxide 24 mmol/L (22-29); Chloride 109 mmol/L (96-108); Cholesterol 155 mg/dL; Estimated Glomerular Filt Rate > 60; Glucose Fasting 95 mg/dL (60-99); HDL Cholesterol 33 mg/dL; LDL Cholesterol Calculated 99 mg/dl; Potassium 4.1 mmol/L (3.3-5.1); Sodium 139 mmol/L (135-145); Total Protein 7.1 g/dL (6.5-8.0); Triglycerides 115 mg/dL
[2022-10-09 11:44] LABS: Thyroid Stimulating Hormone 1.28 uIU/mL (0.32-4.0)
== END 2022-10-09 08:38 | disposition home or self-care (01) ==
LOC: HO.LAB 08:37
PROVIDERS: PCP Internal Medicine; Visit Provider Internal Medicine
DX: E03.9 Hypothyroidism, unspecified (principal); I10 Essential (primary) hypertension; E78.5 Hyperlipidemia, unspecified; Z13.0 Encounter for screening for diseases of the blood and blood-forming organs and certain disorders involving the immune mechanism
CPT/HCPCS: 36415; 80053; 80061; 81001; 84443; 85025

== ENCOUNTER 2023-01-15 08:25 | Outpatient (REF) | payer MEDICARE, SELFPAY ==
[2023-01-15 09:30] LABS: Cholesterol 227 mg/dL (<200); HDL Cholesterol 35 mg/dL (>40); LDL Cholesterol Calculated 167 mg/dL (<100); Triglycerides 125 mg/dL (<150)
[2023-01-15 10:17] LABS: Appearance Urine Clear; Color Urine Yellow; Glucose Urine UA Negative (Negative); Leukocyte Esterase Urine Small (1+) (Negative); Nitrite Urine Negative (Negative); UMIC TRIGGER UA YES; Urine Blood Negative (Negative); Urine Ketones Negative (Negative); Urine Protein Negative (Neg-Trace)
[2023-01-15 10:33] LABS: Bacteria Urine None Seen (None Seen); Hyaline Casts Urine 0-2 /LPF (0-2); RBC Urine 0-2 /HPF (0-2); Squamous Epithelial Cell Urine 0-2 /HPF (0-2); WBC Urine 0-5 /HPF (0-5)
== END 2023-01-15 08:26 | disposition home or self-care (01) ==
LOC: HO.LAB 08:25
PROVIDERS: PCP Internal Medicine; Visit Provider Internal Medicine
DX: E78.5 Hyperlipidemia, unspecified (principal)
CPT/HCPCS: 36415; 80061; 81001

== ENCOUNTER 2023-01-16 09:39 | Outpatient (AMB) | payer MEDICARE, SELFPAY ==
--- NOTE | 2023-01-16 09:40 | MHC.PC.OV ---
Vital Signs 01/16/23 09:41 Height 5 ft 6 in Weight 205 lb BMI 33.1 BP 148/72 H Blood Pressure Location Lt brachial Position Sitting Pulse 72 Pulse Source Pulse Oximeter Pulse Oximetry (%) 97 Oxygen Delivery Method Room Air Intake Visit Reasons: 3mth f/u Geriatric Care Manager: Not Required per policy Accompanied by: Self / Same As Patient Allergies acetaminophen [Tylenol] Allergy (Unknown, Verified 01/16/23 09:41) rash aspirin Allergy (Unknown, Verified 01/16/23 09:41) bruising atorvastatin Allergy (Unknown, Verified 01/16/23 09:41) muscle aches, forgetfulness glipizide Allergy (Unknown, Verified 01/16/23 09:41) anxiety rosuvastatin Adverse Reaction (Intermediate, Verified 01/16/23 09:41) Anxiety Medication List - Last Reconciled 01/16/23 by Sami Najera MD clotrimazole-betamethasone 1-0.05 % 1 appl topical BID 2 weeks sildenafil (Viagra) 50 mg PO DAILY PRN triamcinolone acetonide 0.5% 1 appl topical TID vardenafil 20 mg PO DAILY Tobacco use date assessed: 10/15/22 Fall risk assessment: No Falls in past year Last assessed Fall Risk: 01/16/23 Dental Screening Dental Screen Date: 01/16/23 Did you have a dental visit in the last 12 months?: Yes Did you have a dental problem in the last 6 months where you did not have access to dental care?: No Was dental information given to patient?: Patient has dentist HPI 3mth f/u HPI Details hyperlipidemia; intolerant of statins PFSH Medical History Osteoporosis Migraine Anxiety Obesity Screening for colon cancer Screening for prostate cancer Screening for diabetes mellitus Hyperlipidemia Surgical History History of amputation of finger of right hand History of colonoscopy History of tooth extraction History of cholecystectomy History of surgery on arm History of repair of rotator cuff Family History Father CVD (cardiovascular disease) Mother Stroke Diabetes Brother Coronary artery sclerosis Social History Housing: House Alcohol intake: never Patient Tobacco Use Status: Current someday Tobacco user Tobacco use type: Pipe e-Cigarette/Vaping Use: Never Used Second Hand Smoke Exposure: No service: Yes 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 1. Little interest or pleasure in doing things: not at all 2. Feeling down, depressed, or hopeless: not at all 3. Trouble falling or staying asleep, or sleeping too much: not at all 4. Feeling tired or having little energy: not at all 5. Poor appetite or overeating: not at all 6. Feeling bad about yourself - or that you are a failure or have let yourself or your family down: not at all 7. Trouble concentrating on things, such as reading the newspaper or watching television: not at all 8. Moving or speaking so slowly that other people could have noticed. Or the opposite - being so fidgety or restless that you have been moving around a lot more than usual: not at all 9. Thoughts that you would be better off or of hurting yourself in some way: not at all Total score: 0 Depression Screening Interpretation: Negative Source: Developed by Drs. Dawson Stout, Christen Guzman, James Pena and colleagues, with an educational fariba from [employer]. Thrive Questionnaire Date Thrive assessed: 07/15/22 AUDIT C Alcohol Use Questionnaire (AUDIT-C) 1. How often do you have a drink containing alcohol?: Never Total Score: 0 Score Reviewed/Action Taken: Yes SERGEY-7 AMB Questionnaire SERGEY-7 Date SERGEY - 7 assessed: 07/15/22 Source: Developed by Drs. Dawson Stout, James Schmitz and colleagues, with an educational fariba from [employer]. Review of Systems Const Denies chills, Denies headache(s) and Denies weight loss ENT Denies headache(s) Card Denies chest pain, Denies syncope, Denies irregular heart rhythm and Denies dyspnea Resp Denies chest congestion, Denies cough and Denies dyspnea GI Denies abdominal pain, Denies change in stool character, Denies nausea and Denies vomiting Musc Denies deformity and Denies joint swelling Neuro Denies syncope and Denies headache(s) Physical exam (Primary Care) Vital Signs: Last Vital Signs Pulse 72 01/16/23 09:41 BP 148/72 H 01/16/23 09:41 Pulse Ox 97 01/16/23 09:41 Oxygen Delivery Method Room Air 01/16/23 09:41 BMI result Body Mass Index 33.1 Tobacco/Smoking Status: Tobacco use Status Tobacco use date assessed 10/15/22 01/16/23 09:46 Patient Tobacco Use Status Current someday Tobacco 01/16/23 09:46 Tobacco use type Pipe 01/16/23 09:46 e-Cigarette/Vaping Use Never Used 01/16/23 09:46 PHQ-9: PHQ-9 Score PHQ-9: Total score 0 01/16/23 09:46 Depression Screening Interpretation: Negative Thrive Assessment: Date of Thrive Assessment Date Thrive assessed 07/15/22 01/16/23 09:46 Const General: cooperative, comfortable, no acute distress and alert Neck Neck: Yes no lymphadenopathy Thyroid: Thyroid normal Resp Effort & Inspection: normal respiratory effort Auscultation: clear to auscultation bilaterally Percussion: percussion normal Cardio Jugular venous distension: no JVD Palpation: normal PMI Rate: regular rate Rhythm: regular rhythm Heart sounds: S1 normal heart sound present and S2 normal heart sound present GI Inspection: Yes normal to inspection Palpation (GI): No hepatosplenomegaly present Skin General skin exam: no rashes or lesions noted Extrem General: Yes no clubbing, cyanosis or edema Assessment and Plan Assessment & Plan (1) Hyperlipidemia: Code(s): E78.5 - Hyperlipidemia, unspecified Plan: lose weight; no rx at present Orders: Orders Lipid Panel Today E78.5 - Hyperlipidemia, unspecified Coding Level of Care Code Est Pt Level 3 (13913) Diagnoses Hyperlipidemia E78.5 Additional Codes PHQ-9 - 47935 - PHQ-9 Billing: ([id number])
[2023-01-16 09:41] VITALS: BP 148/72; PULSE 72; O2SAT 97; BMI 33.1
== END 2023-01-16 10:00 | disposition home or self-care (01) ==
PROVIDERS: PCP Internal Medicine; Visit Provider Internal Medicine
DX: E78.5 Hyperlipidemia, unspecified (principal)
CPT/HCPCS: 99213

== ENCOUNTER 2023-02-20 13:22 | Outpatient (AMB) | payer MEDICARE, SELFPAY ==
--- NOTE | 2023-02-20 13:24 | A.OFFPC_ITS ---
Vital Signs 02/20/23 13:25 Height 5 ft 6 in Weight 205 lb BMI 33.1 BP 142/70 H Blood Pressure Location Lt brachial Position Sitting Pulse 70 Pulse Source Pulse Oximeter Pulse Oximetry (%) 98 Oxygen Delivery Method Room Air Intake Visit Reasons: insomnia Professional Architect: Not Required per policy Accompanied by: Self / Same As Patient Allergies acetaminophen [Tylenol] Allergy (Unknown, Verified 02/20/23 13:25) rash aspirin Allergy (Unknown, Verified 02/20/23 13:25) bruising atorvastatin Allergy (Unknown, Verified 02/20/23 13:25) muscle aches, forgetfulness glipizide Allergy (Unknown, Verified 02/20/23 13:25) anxiety rosuvastatin Adverse Reaction (Intermediate, Verified 02/20/23 13:25) Anxiety Medication List - Last Reconciled 02/20/23 by Sami Najera MD clotrimazole-betamethasone 1-0.05 % 1 appl topical BID 2 weeks sildenafil (Viagra) 50 mg PO DAILY PRN triamcinolone acetonide 0.5% 1 appl topical TID vardenafil 20 mg PO DAILY Tobacco use date assessed: 10/15/22 Fall risk assessment: No Falls in past year Last assessed Fall Risk: 02/20/23 Dental Screening Dental Screen Date: 02/20/23 Did you have a dental visit in the last 12 months?: Yes Did you have a dental problem in the last 6 months where you did not have access to dental care?: No Was dental information given to patient?: Patient has dentist HPI insomnia HPI Details insomnia for a few weeks due to stress PFSH Medical History Osteoporosis Migraine Anxiety Obesity Screening for colon cancer Screening for prostate cancer Screening for diabetes mellitus Hyperlipidemia Surgical History History of amputation of finger of right hand History of colonoscopy History of tooth extraction History of cholecystectomy History of surgery on arm History of repair of rotator cuff Family History Father CVD (cardiovascular disease) Mother Stroke Diabetes Brother Coronary artery sclerosis Social History Housing: House Alcohol intake: never Patient Tobacco Use Status: Current someday Tobacco user Tobacco use type: Pipe e-Cigarette/Vaping Use: Never Used Second Hand Smoke Exposure: No service: Yes 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 1. Little interest or pleasure in doing things: not at all 2. Feeling down, depressed, or hopeless: not at all 3. Trouble falling or staying asleep, or sleeping too much: not at all 4. Feeling tired or having little energy: not at all 5. Poor appetite or overeating: not at all 6. Feeling bad about yourself - or that you are a failure or have let yourself or your family down: not at all 7. Trouble concentrating on things, such as reading the newspaper or watching television: not at all 8. Moving or speaking so slowly that other people could have noticed. Or the o pposite - being so fidgety or restless that you have been moving around a lot more than usual: not at all 9. Thoughts that you would be better off or of hurting yourself in some way: not at all Total score: 0 Depression Screening Interpretation: Negative Depression Screening Done: Yes Source: Developed by Drs. Dawson Stout, Christen Guzman, James Pena and colleagues, with an educational fariba from [employer]. Thrive Questionnaire Date Thrive assessed: 07/15/22 AUDIT C Alcohol Use Questionnaire (AUDIT-C) 1. How often do you have a drink containing alcohol?: Never Total Score: 0 Score Reviewed/Action Taken: Yes SERGEY-7 AMB Questionnaire SERGEY-7 Date SERGEY - 7 assessed: 07/15/22 Source: Developed by Drs. Dawson Stout, James Schmitz and colleagues, with an educational fariba from [employer]. Review of Systems Const Denies chills, Denies headache(s) and Denies weight loss ENT Denies headache(s) Card Denies chest pain, Denies syncope, Denies irregular heart rhythm and Denies dyspnea Resp Denies chest congestion, Denies cough and Denies dyspnea GI Denies abdominal pain, Denies change in stool character, Denies nausea and Denies vomiting Musc Denies deformity and Denies joint swelling Neuro Denies syncope and Denies headache(s) Physical exam (Primary Care) Vital Signs: Last Vital Signs Pulse 70 02/20/23 13:25 BP 142/70 H 02/20/23 13:25 Pulse Ox 98 02/20/23 13:25 Oxygen Delivery Method Room Air 02/20/23 13:25 BMI result Body Mass Index 33.1 Tobacco/Smoking Status: Tobacco use Status Tobacco use date assessed 10/15/22 02/20/23 13:26 Patient Tobacco Use Status Current someday Tobacco 02/20/23 13:26 Tobacco use type Pipe 02/20/23 13:26 e-Cigarette/Vaping Use Never Used 02/20/23 13:26 PHQ-9: PHQ-9 Score PHQ-9: Total score 0 02/20/23 13:26 Depression Screening Interpretation: Negative Thrive Assessment: Date of Thrive Assessment Date Thrive assessed 07/15/22 02/20/23 13:26 Const General: cooperative, comfortable, no acute distress and alert Neck Neck: Yes no lymphadenopathy Thyroid: Thyroid normal Resp Effort & Inspection: normal respiratory effort Auscultation: clear to auscultation bilaterally Percussion: percussion normal Cardio Jugular venous distension: no JVD Palpation: normal PMI Rate: regular rate Rhythm: regular rhythm Heart sounds: S1 normal heart sound present and S2 normal heart sound present GI Inspection: Yes normal to inspection Palpation (GI): No hepatosplenomegaly present Skin General skin exam: no rashes or lesions noted Extrem General: Yes no clubbing, cyanosis or edema Assessment and Plan Assessment & Plan (1) Insomnia: Code(s): G47.00 - Insomnia, unspecified Plan: take rx Medications: New zolpidem 10 mg PO BEDTIME 30 tabs 1RF Coding Level of Care Code Est Pt Level 3 (76909) Diagnoses Insomnia G47.00 Additional Codes PHQ-9 - 21599 - PHQ-9 Billing: ([id number])
[2023-02-20 13:25] VITALS: BP 142/70; PULSE 70; O2SAT 98; BMI 33.1
== END 2023-02-20 13:36 | disposition home or self-care (01) ==
PROVIDERS: PCP Internal Medicine; Visit Provider Internal Medicine
DX: G47.00 Insomnia, unspecified (principal)
CPT/HCPCS: 99213

== ENCOUNTER 2023-04-24 08:40 | Outpatient (AMB) | payer MEDICARE, SELFPAY ==
--- NOTE | 2023-04-24 08:48 | MHC.PC.OV ---
Vital Signs 04/24/23 08:52 Height 5 ft 6 in Weight 204 lb 4 oz BMI 33.0 BP 132/70 Blood Pressure Location Lt brachial Position Sitting Pulse 94 Pulse Source Pulse Oximeter Pulse Oximetry (%) 98 Oxygen Delivery Method Room Air Intake Visit Reasons: 3 Months F/U Intake Note: Patient is here to follow up on Hyperlipidemia, PAD. Home Care Provider Required: No Float Remover: Not Required per policy Accompanied by: Self / Same As Patient Allergies acetaminophen [Tylenol] Allergy (Unknown, Verified 04/24/23 08:51) rash aspirin Allergy (Unknown, Verified 04/24/23 08:51) bruising atorvastatin Allergy (Unknown, Verified 04/24/23 08:51) muscle aches, forgetfulness glipizide Allergy (Unknown, Verified 04/24/23 08:51) anxiety rosuvastatin Adverse Reaction (Intermediate, Verified 04/24/23 08:51) Anxiety Medication List - Last Reconciled 04/24/23 by Sami Najera MD clotrimazole-betamethasone 1-0.05 % 1 appl topical BID 2 weeks sildenafil (Viagra) 50 mg PO DAILY PRN triamcinolone acetonide 0.5% 1 appl topical TID vardenafil 20 mg PO DAILY zolpidem 10 mg PO BEDTIME Tobacco use date assessed: 04/24/23 Fall risk assessment: No Falls in past year Last assessed Fall Risk: 04/24/23 Dental Screening Dental Screen Date: 04/24/23 Did you have a dental visit in the last 12 months?: Yes Did you have a dental problem in the last 6 months where you did not have access to dental care?: No Was dental information given to patient?: Patient has dentist HPI 3 Months F/U HPI Details hyperlip on rx; doing well; compliant [facility] Medical History Osteoporosis Migraine Anxiety Obesity Screening for colon cancer Screening for prostate cancer Screening for diabetes mellitus Hyperlipidemia Surgical History History of amputation of finger of right hand History of colonoscopy History of tooth extraction History of cholecystectomy History of surgery on arm History of repair of rotator cuff Family History Father CVD (cardiovascular disease) Mother Stroke Diabetes Brother Coronary artery sclerosis Social History Housing: House Alcohol intake: never Patient Tobacco Use Status: Current someday Tobacco user Tobacco use type: Pipe e-Cigarette/Vaping Use: Never Used Second Hand Smoke Exposure: No service: Yes 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 1. Little interest or pleasure in doing things: not at all 2. Feeling down, depressed, or hopeless: not at all 3. Trouble falling or staying asleep, or sleeping too much: not at all 4. Feeling tired or having little energy: not at all 5. Poor appetite or overeating: not at all 6. Feeling bad about yourself - or that you are a failure or have let yourself or your family down: not at all 7. Trouble concentrating on things, such as reading the newspaper or watching television: not at all 8. Moving or speaking so slowly that other people could have noticed. Or the opposite - being so fidgety or restless that you have been moving around a lot more than usual: not at all 9. Thoughts that you would be better off or of hurting yourself in some way: not at all Total score: 0 Depression Screening Interpretation: Negative Depression Screening Done: Yes 05993 - PHQ-9 Billing: Yes Source: Developed by Drs. Dawson Stout, Christen Guzman, James Pena and colleagues, with an educational fariba from [employer]. Thrive Questionnaire Date Thrive assessed: 04/24/23 I am a: Patient What is your living situation today?: I have a steady place to live Within the past 12 months, did the food you bought not last and you didn't have the money to get more?: Never true Within the past 12 months, did you worry whether your food would run out before you got money to buy more?: Never true Do you have trouble paying for medicines?: No Do you have trouble getting transportation to medical appointments?: No Do you have trouble paying your heating and electricity bill?: No Do you have trouble taking care of your child, family member or friend?: No Do you have trouble with day-to-day activities such as bathing, preparing meals, shopping, managing finances, etc.?: No Are you currently unemployed and looking for a job?: No Are you interested in more education?: No Currently or been in a relationship where the following occur: no concerns reported AUDIT C Alcohol Use Questionnaire (AUDIT-C) 1. How often do you have a drink containing alcohol?: Never Total Score: 0 SERGEY-7 AMB Questionnaire SERGEY-7 Date SERGEY - 7 assessed: 04/24/23 Feeling nervous, anxious, or on edge: 1 = Several days Not being able to stop or control worryin = Not at all Worrying too much about different things: 0 = Not at all Trouble relaxin = Not at all Being so restless that it is hard to sit still: 0 = Not at all Becoming easily annoyed or irritable: 0 = Not at all Feeling afraid as if something awful might happen: 0 = Not at all Total SERGEY-7 score (0-4 normal; 5-9 mild; 10-14 moderate; 15-21 severe): 1 Source: Developed by Drs. Dawson Stout, Christen Guzman, James Pena and colleagues, with an educational fariba from [employer]. SERGEY-7 Assessment Billing SERGEY-7 Assessment Tool: SERGEY-7 Assessment 05048 Review of Systems Const Denies chills, Denies headache(s) and Denies weight loss ENT Denies headache(s) Card Denies chest pain, Denies syncope, Denies irregular heart rhythm and Denies dyspnea Resp Denies chest congestion, Denies cough and Denies dyspnea GI Denies abdominal pain, Denies change in stool character, Denies nausea and Denies vomiting Musc Denies deformity and Denies joint swelling Neuro Denies syncope and Denies headache(s) Physical exam (Primary Care) Vital Signs: Last Vital Signs Pulse 94 04/24/23 08:52 BP 132/70 04/24/23 08:52 Pulse Ox 98 04/24/23 08:52 Oxygen Delivery Method Room Air 04/24/23 08:52 BMI result Body Mass Index 33.0 Tobacco/Smoking Status: Tobacco use Status Tobacco use date assessed 04/24/23 04/24/23 09:00 Patient Tobacco Use Status Current someday Tobacco 04/24/23 09:00 Tobacco use type Pipe 04/24/23 09:00 e-Cigarette/Vaping Use Never Used 04/24/23 09:00 PHQ-9: PHQ-9 Score PHQ-9: Total score 0 04/24/23 09:00 Depression Screening Interpretation: Negative Thrive Assessment: Date of Thrive Assessment Date Thrive assessed 04/24/23 04/24/23 09:00 Currently or been in a relationship where the following occur: no concerns reported Const General: cooperative, comfortable, no acute distress and alert Neck Neck: Yes no lymphadenopathy Thyroid: Thyroid normal Resp Effort & Inspection: normal respiratory effort Auscultation: clear to auscultation bilaterally Percussion: percussion normal Cardio Jugular venous distension: no JVD Palpation: normal PMI Rate: regular rate Rhythm: regular rhythm Heart sounds: S1 normal heart sound present and S2 normal heart sound present GI Inspection: Yes normal to inspection Palpation (GI): No hepatosplenomegaly present Skin General skin exam: no rashes or lesions noted Extrem General: Yes no clubbing, cyanosis or edema Assessment and Plan Assessment & Plan (1) Hyperlipidemia: Code(s): E78.5 - Hyperlipidemia, unspecified Plan: stable; Coding Level of Care Code Est Pt Level 3 (38215) Diagnoses Hyperlipidemia E78.5 Additional Codes SERGEY-7 Assessment Billing - SERGEY-7 Assessment Tool: SERGEY-7 Assessment 93124 ([id number])
[2023-04-24 08:52] VITALS: BP 132/70; PULSE 94; O2SAT 98; BMI 33.0
== END 2023-04-24 09:31 | disposition home or self-care (01) ==
PROVIDERS: PCP Internal Medicine; Visit Provider Internal Medicine
DX: E78.5 Hyperlipidemia, unspecified (principal)
CPT/HCPCS: 99213

== ENCOUNTER 2023-08-05 13:44 | Outpatient (AMB) | payer MEDICARE, SELFPAY ==
[2023-08-05 13:50] VITALS: BP 132/80; PULSE 59; O2SAT 99; BMI 33.6
--- NOTE | 2023-08-05 13:50 | MHC.PC.OV ---
Vital Signs 08/05/23 13:50 Height 5 ft 6 in Weight 208 lb 0.2 oz BMI 33.6 BP 132/80 Blood Pressure Location Lt brachial Position Sitting Pulse 59 Pulse Source Pulse Oximeter Pulse Oximetry (%) 99 Oxygen Delivery Method Room Air Intake Visit Reasons: ears clogged, nose running, memory loss Intake Note: pt states dizziness, ear ringing and sinus congestion [id number] Allergies acetaminophen [Tylenol] Allergy (Unknown, Verified 08/05/23 13:51) rash aspirin Allergy (Unknown, Verified 08/05/23 13:51) bruising atorvastatin Allergy (Unknown, Verified 08/05/23 13:51) muscle aches, forgetfulness glipizide Allergy (Unknown, Verified 08/05/23 13:51) anxiety rosuvastatin Adverse Reaction (Intermediate, Verified 08/05/23 13:51) Anxiety Medication List - Last Reconciled 08/05/23 by Sami Najera MD azithromycin take 500 mg today (day 1), then 250 mg for 4 days (days 2-5) PO clotrimazole-betamethasone 1-0.05 % 1 appl topical BID 2 weeks sildenafil (Viagra) 50 mg PO DAILY PRN triamcinolone acetonide 0.5% 1 appl topical TID vardenafil 20 mg PO DAILY zolpidem 10 mg PO BEDTIME Tobacco use date assessed: 08/05/23 Fall risk assessment: No Falls in past year Last assessed Fall Risk: 08/05/23 Dental Screening Dental Screen Date: 04/24/23 HPI ears clogged, nose running, memory loss HPI Details sinus infection for a few months PFSH Medical History Osteoporosis Migraine Anxiety Obesity Screening for colon cancer Screening for prostate cancer Screening for diabetes mellitus Hyperlipidemia Surgical History History of amputation of finger of right hand History of colonoscopy History of tooth extraction History of cholecystectomy History of surgery on arm History of repair of rotator cuff Family History Father CVD (cardiovascular disease) Mother Stroke Diabetes Brother Coronary artery sclerosis Social History Housing: House Alcohol intake: never Patient Tobacco Use Status: Current someday Tobacco user Tobacco use type: Pipe e-Cigarette/Vaping Use: Never Used Second Hand Smoke Exposure: No service: Yes Current occupational 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 How often do you have a drink containing alcohol?: Never 3. How often do you have six or more drinks on one occasion?: Never Total Score: 0 SERGEY-7 AMB Questionnaire SERGEY-7 Date SERGEY - 7 assessed: 04/24/23 Source: Developed by Drs. Dawson Stout, Christen Guzman, James Pena and colleagues, with an educational fariba from [employer]. Review of Systems Const Denies chills, Denies headache(s) and Denies weight loss ENT Denies headache(s) Card Denies chest pain, Denies syncope, Denies irregular heart rhythm and Denies dyspnea Resp Denies chest congestion, Denies cough and Denies dyspnea GI Denies abdominal pain, Denies change in stool character, Denies nausea and Denies vomiting Musc Denies deformity and Denies joint swelling Neuro Denies syncope and Denies headache(s) Physical exam (Primary Care) Vital Signs: Last Vital Signs Pulse 59 08/05/23 13:50 BP 132/80 08/05/23 13:50 Pulse Ox 99 08/05/23 13:50 Oxygen Delivery Method Room Air 08/05/23 13:50 BMI result Body Mass Index 33.6 Tobacco/Smoking Status: Tobacco use Status Tobacco use date assessed 08/05/23 08/05/23 13:53 Patient Tobacco Use Status Current someday Tobacco 08/05/23 13:53 Tobacco use type Pipe 08/05/23 13:53 e-Cigarette/Vaping Use Never Used 08/05/23 13:53 Thrive Assessment: Date of Thrive Assessment Date Thrive assessed 04/24/23 08/05/23 13:53 Const General: cooperative, comfortable, no acute distress and alert Neck Neck: Yes no lymphadenopathy Thyroid: Thyroid normal Resp Effort & Inspection: normal respiratory effort Auscultation: clear to auscultation bilaterally Percussion: percussion normal Cardio Jugular venous distension: no JVD Palpation: normal PMI Rate: regular rate Rhythm: regular rhythm Heart sounds: S1 normal heart sound present and S2 normal heart sound present GI Inspection: Yes normal to inspection Palpation (GI): No hepatosplenomegaly present Skin General skin exam: no rashes or lesions noted Extrem General: Yes no clubbing, cyanosis or edema Assessment and Plan Assessment & Plan (1) Sinusitis: Code(s): J32.9 - Chronic sinusitis, unspecified Plan: rx sent Medications: New azithromycin take 500 mg today (day 1), then 250 mg for 4 days (days 2-5) PO 6 tabs 0RF Coding Level of Care Code Est Pt Level 3 (56470) Diagnoses Sinusitis J32.9
== END 2023-08-05 14:11 | disposition home or self-care (01) ==
PROVIDERS: PCP Internal Medicine; Visit Provider Internal Medicine
DX: J32.9 Chronic sinusitis, unspecified (principal)
CPT/HCPCS: 99213

== ENCOUNTER 2023-10-26 08:22 | Outpatient (AMB) | payer MEDICARE, SELFPAY ==
[2023-10-26 08:38] VITALS: BP 142/68; PULSE 82; O2SAT 96; BMI 34.2
--- NOTE | 2023-10-26 08:38 | MHC.PC.OV ---
Vital Signs 10/26/23 08:38 Height 5 ft 6 in Weight 212 lb BMI 34.2 BP 142/68 H Blood Pressure Location Lt brachial Position Sitting Pulse 82 Pulse Source Pulse Oximeter Pulse Oximetry (%) 96 Oxygen Delivery Method Room Air Intake Visit Reasons: 6 month f/u [employer]: Not Required per policy Accompanied by: Self / Same As Patient Allergies acetaminophen [Tylenol] Allergy (Unknown, Verified 10/26/23 08:38) rash aspirin Allergy (Unknown, Verified 10/26/23 08:38) bruising atorvastatin Allergy (Unknown, Verified 10/26/23 08:38) muscle aches, forgetfulness glipizide Allergy (Unknown, Verified 10/26/23 08:38) anxiety rosuvastatin Adverse Reaction (Intermediate, Verified 10/26/23 08:38) Anxiety Medication List - Last Reconciled 10/26/23 by Sami Najera MD clotrimazole-betamethasone 1-0.05 % 1 appl topical BID 2 weeks sildenafil (Viagra) 50 mg PO DAILY PRN triamcinolone acetonide 0.5% 1 appl topical TID vardenafil 20 mg PO DAILY zolpidem 10 mg PO BEDTIME Tobacco use date assessed: 08/05/23 Fall risk assessment: No Falls in past year Last assessed Fall Risk: 10/26/23 Dental Screening Dental Screen Date: 04/24/23 HPI 6 month f/u HPI Details hyperlipidemia; stable; [facility] Medical History Osteoporosis Migraine Anxiety Obesity Screening for colon cancer Screening for prostate cancer Screening for diabetes mellitus Hyperlipidemia Surgical History History of amputation of finger of right hand History of colonoscopy History of tooth extraction History of cholecystectomy History of surgery on arm History of repair of rotator cuff Family History Father CVD (cardiovascular disease) Mother Stroke Diabetes Brother Coronary artery sclerosis Social History Housing: House Alcohol intake: never Patient Tobacco Use Status: Current someday Tobacco user Tobacco use type: Pipe e-Cigarette/Vaping Use: Never Used Second Hand Smoke Exposure: No service: Yes 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 Dawson Stout, Christen Guzman, James Pena and colleagues, with an educational fariba from [employer]. Review of Systems Const Denies chills, Denies headache(s) and Denies weight loss ENT Denies headache(s) Card Denies chest pain, Denies syncope, Denies irregular heart rhythm and Denies dyspnea Resp Denies chest congestion, Denies cough and Denies dyspnea GI Denies abdominal pain, Denies change in stool character, Denies nausea and Denies vomiting Musc Denies deformity and Denies joint swelling Neuro Denies syncope and Denies headache(s) Physical exam (Primary Care) Vital Signs: Last Vital Signs Pulse 82 10/26/23 08:38 BP 142/68 H 10/26/23 08:38 Pulse Ox 96 10/26/23 08:38 Oxygen Delivery Method Room Air 10/26/23 08:38 BMI result Body Mass Index 34.2 Tobacco/Smoking Status: Tobacco use Status Tobacco use date assessed 08/05/23 10/26/23 08:42 Patient Tobacco Use Status Current someday Tobacco 10/26/23 08:42 Tobacco use type Pipe 10/26/23 08:42 e-Cigarette/Vaping Use Never Used 10/26/23 08:42 Thrive Assessment: Date of Thrive Assessment Date Thrive assessed 04/24/23 10/26/23 08:42 Const General: cooperative, comfortable, no acute distress and alert Neck Neck: Yes no lymphadenopathy Thyroid: Thyroid normal Resp Effort & Inspection: normal respiratory effort Auscultation: clear to auscultation bilaterally Percussion: percussion normal Cardio Jugular venous distension: no JVD Palpation: normal PMI Rate: regular rate Rhythm: regular rhythm Heart sounds: S1 normal heart sound present and S2 normal heart sound present GI Inspection: Yes normal to inspection Palpation (GI): No hepatosplenomegaly present Skin General skin exam: no rashes or lesions noted Extrem General: Yes no clubbing, cyanosis or edema Assessment and Plan Assessment & Plan (1) Hyperlipidemia: Code(s): E78.5 - Hyperlipidemia, unspecified Plan: stablke; do labs Orders: Orders Lipid Panel Today Z13.220 - Encounter for screening for lipoid disorders Thyroid Stimulating Hormone Today Z13.29 - Encounter for screening for other suspected endocrine disorder Complete Blood Count Auto Diff Today Z13.0 - Encounter for screening for diseases of the blood and blood-forming organs and certain disorders involving the immune mechanism Comprehensive Egan. Panel Fast Today Z13.9 - Encounter for screening, unspecified Coding Level of Care Code Est Pt Level 3 (43002) Diagnoses Hyperlipidemia E78.5
== END 2023-10-26 08:55 | disposition home or self-care (01) ==
PROVIDERS: PCP Internal Medicine; Visit Provider Internal Medicine
DX: E78.5 Hyperlipidemia, unspecified (principal)
CPT/HCPCS: 99213

== ENCOUNTER 2023-12-14 09:59 | Outpatient (REF) | payer MEDICARE, SELFPAY ==
[2023-12-14 10:16] LABS: MANUAL DIFF FLAG NO
[2023-12-14 10:57] LABS: Basophils Absolute Auto 0.1 X10*3/uL (0.0-0.2); Basophils Percent Auto 1.2 % (0-2); Eosinophils Absolute Auto 0.2 X10*3/uL (0.0-0.4); Eosinophils Percent Auto 3.2 % (0-4); Hematocrit 42.6 % (42.0-52.0); Hemoglobin 14.3 g/dl (14.0-18.0); Imm Gran Abs Auto 0.02 X10*3/uL (0.00-0.03); Imm Gran Pct Auto 0.3 % (0.0-0.4); Lymphocytes Absolute Auto 2.2 X10*3/uL (1.2-4.9); Mean Corpuscular HGB Conc 33.6 g/dl (31.0-36.0); Mean Corpuscular Hemoglobin 29.5 pg (27.0-33.0); Mean Platelet Volume 9.4 fL (9.4-12.4); Monocytes Absolute Auto 0.7 X10*3/uL (0.1-1.2); Monocytes Percent Auto 10.8 % (2-11); Neutrophils Absolute Auto 2.9 x10*3/uL (2.0-8.3); Neutrophils Percent Auto 47.5 % (45-73); Platelet Count 296 X10*3/uL (160-400); Red Blood Count 4.84 X10*6/uL (4.60-5.80); Red Cell Distribution Width 13.3 % (11.0-16.0)
[2023-12-14 11:49] LABS: Alanine Aminotransferase 20 U/L (0-40); Albumin Level 3.6 g/dL (3.5-5.0); Alkaline Phosphatase 92 U/L (39-117); Anion Gap 10 (12-20); Aspartate Amino Transferase 24 U/L (5-37); Bilirubin Total 0.5 mg/dL (0.0-1.0); Blood Urea Nitrogen 13 mg/dL (9-16); Calcium 9.3 mg/dL (8.4-10.2); Carbon Dioxide 25 mmol/L (22-29); Chloride 109 mmol/L (96-108); Cholesterol 202 mg/dL (<200); Estimated Glomerular Filt Rate > 60; Glucose Fasting 91 mg/dL (60-99); HDL Cholesterol 33 mg/dL (>40); LDL Cholesterol Calculated 144 mg/dL (<100); Potassium 4.1 mmol/L (3.3-5.1); Sodium 140 mmol/L (135-145); Thyroid Stimulating Hormone 0.89 uIU/mL (0.32-4.0); Total Protein 6.7 g/dL (6.5-8.0); Triglycerides 125 mg/dL (<150)
[2023-12-14 13:35] LABS: Appearance Urine Clear; Color Urine Yellow; Glucose Urine UA Negative (Negative); Leukocyte Esterase Urine Negative (Negative); Nitrite Urine Negative (Negative); Urine Blood Negative (Negative); Urine Ketones Negative (Negative); Urine Protein Negative (Neg-Trace)
== END 2023-12-14 10:00 | disposition home or self-care (01) ==
LOC: HO.LAB 09:59
PROVIDERS: PCP Internal Medicine; Visit Provider Internal Medicine
DX: Z13.0 Encounter for screening for diseases of the blood and blood-forming organs and certain disorders involving the immune mechanism (principal); Z13.220 Encounter for screening for lipoid disorders; N39.0 Urinary tract infection, site not specified; Z13.29 Encounter for screening for other suspected endocrine disorder; Z13.9 Encounter for screening, unspecified
CPT/HCPCS: 36415; 80053; 80061; 81003; 84443; 85025

== ENCOUNTER 2024-01-19 14:15 | Outpatient (AMB) | payer MEDICARE, SELFPAY ==
[2024-01-19 14:16] VITALS: BP 134/72; PULSE 72; O2SAT 97; BMI 33.2
--- NOTE | 2024-01-19 14:16 | A.OFFPC_ITS ---
Vital Signs 01/19/24 14:16 Height 5 ft 6 in Weight 206 lb BMI 33.2 BP 134/72 Blood Pressure Location Lt brachial Position Sitting Pulse 72 Pulse Source Pulse Oximeter Pulse Oximetry (%) 97 Oxygen Delivery Method Room Air Intake Visit Reasons: 3 month f/u Intake Note: PT complains of back pain and constipation. 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 by: Self / Same As Patient Allergies acetaminophen [Tylenol] Allergy (Unknown, Verified 01/19/24 14:18) rash aspirin Allergy (Unknown, Verified 01/19/24 14:18) bruising atorvastatin Allergy (Unknown, Verified 01/19/24 14:18) muscle aches, forgetfulness glipizide Allergy (Unknown, Verified 01/19/24 14:18) anxiety rosuvastatin Adverse Reaction (Intermediate, Verified 01/19/24 14:18) Anxiety Medication List - Last Reconciled 01/20/24 by Sami Najera MD clotrimazole-betamethasone 1-0.05 % 1 appl topical BID 2 weeks sildenafil (Viagra) 50 mg PO DAILY PRN triamcinolone acetonide 0.5% 1 appl topical TID vardenafil 20 mg PO DAILY zolpidem 10 mg PO BEDTIME Tobacco use date assessed: 08/05/23 Fall risk assessment: No Falls in past year Last assessed Fall Risk: 01/19/24 Dental Screening Dental Screen Date: 04/24/23 HPI 3 month f/u HPI Details ED on rx; doing well and [facility] Medical History Osteoporosis Migraine Anxiety Obesity Screening for colon cancer Screening for prostate cancer Screening for diabetes mellitus Hyperlipidemia Surgical History History of amputation of finger of right hand History of colonoscopy History of tooth extraction History of cholecystectomy History of surgery on arm History of repair of rotator cuff Family History Father CVD (cardiovascular disease) Mother Stroke Diabetes Brother Coronary artery sclerosis Social History Housing: House Alcohol intake: never Patient Tobacco Use Status: Current someday Tobacco user Tobacco use type: Pipe e-Cigarette/Vaping Use: Never Used Second Hand Smoke Exposure: No service: Yes 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 1. Little interest or pleasure in doing things: not at all 2. Feeling down, depressed, or hopeless: not at all 3. Trouble falling or staying asleep, or sleeping too much: not at all 4. Feeling tired or having little energy: not at all 5. Poor appetite or overeating: not at all 6. Feeling bad about yourself - or that you are a failure or have let yourself or your family down: not at all 7. Trouble concentrating on things, such as reading the newspaper or watching television: not at all 8. Moving or speaking so slowly that other people could have noticed. Or the opposite - being so fidgety or restless that you have been moving around a lot more than usual: not at all 9. Thoughts that you would be better off or of hurting yourself in some way: not at all Total score: 0 Depression Screening Interpretation: Negative Depression Screening Done: Yes 22130 - PHQ-9 Billing: Yes Source: Developed by Drs. Dawson Stout, James Schmitz and colleagues, with an educational fariba from [employer] Thrive Questionnaire Date Thrive assessed: 04/24/23 AUDIT C Alcohol Use Questionnaire (AUDIT-C) 1. How often do you have a drink containing alcohol?: Never 3. How often do you have six or more drinks on one occasion?: Never Total Score: 0 SERGEY-7 AMB Questionnaire SERGEY-7 Date SERGEY - 7 assessed: 04/24/23 Source: Developed by Drs. Dawson Stout, James Schmitz and colleagues, with an educational fariba from [employer] Review of Systems Const Denies chills, Denies headache(s) and Denies weight loss ENT Denies headache(s) Card Denies chest pain, Denies syncope, Denies irregular heart rhythm and Denies dyspnea Resp Denies chest congestion, Denies cough and Denies dyspnea GI Denies abdominal pain, Denies change in stool character, Denies nausea and Denies vomiting Musc Denies deformity and Denies joint swelling Neuro Denies syncope and Denies headache(s) Physical exam (Primary Care) Vital Signs: Last Vital Signs Pulse 72 01/19/24 14:16 BP 134/72 01/19/24 14:16 Pulse Ox 97 01/19/24 14:16 Oxygen Delivery Method Room Air 01/19/24 14:16 BMI result Body Mass Index 33.2 Tobacco/Smoking Status: Tobacco use Status Tobacco use date assessed 08/05/23 01/19/24 14:21 Patient Tobacco Use Status Current someday Tobacco 01/19/24 14:21 Tobacco use type Pipe 01/19/24 14:21 e-Cigarette/Vaping Use Never Used 01/19/24 14:21 PHQ-9: PHQ-9 Score PHQ-9: Total score 0 01/19/24 14:21 Depression Screening Interpretation: Negative Thrive Assessment: Date of Thrive Assessment Date Thrive assessed 04/24/23 01/19/24 14:21 Const General: cooperative, comfortable, no acute distress and alert Neck Neck: Yes no lymphadenopathy Thyroid: Thyroid normal Resp Effort & Inspection: normal respiratory effort Auscultation: clear to auscultation bilaterally Percussion: percussion normal Cardio Jugular venous distension: no JVD Palpation: normal PMI Rate: regular rate Rhythm: regular rhythm Heart sounds: S1 normal heart sound present and S2 normal heart sound present GI Inspection: Yes normal to inspection Palpation (GI): No hepatosplenomegaly present Skin General skin exam: no rashes or lesions noted Extrem General: Yes no clubbing, cyanosis or edema Coding Level of Care Code Est Pt Level 3 (38011) Diagnoses Erectile dysfunction N52.9 Assessment & Plan Assessment & Plan (1) Erectile dysfunction: Code(s): N52.9 - Male erectile dysfunction, unspecified Category: Medical Plan: stable; same rx
== END 2024-01-19 14:41 | disposition home or self-care (01) ==
PROVIDERS: PCP Internal Medicine; Visit Provider Internal Medicine
DX: N52.9 Male erectile dysfunction, unspecified (principal)

== ENCOUNTER → 2024-01-19 14:15 | Outpatient (BNVA) | payer MEDICARE, SELFPAY | PROVIDERS: PCP Internal Medicine; Visit Provider Internal Medicine | DX: N52.9 Male erectile dysfunction, unspecified (principal) | CPT/HCPCS: 96127; 99212 ==

== ENCOUNTER 2024-04-25 11:31 | Outpatient (AMB) | payer MEDICARE, SELFPAY ==
--- NOTE | 2024-04-25 11:37 | A.OFFPC_ITS ---
Vital Signs 04/25/24 11:40 Height 5 ft 6 in Weight 213 lb 4 oz BMI 34.4 BP 130/72 Blood Pressure Location Lt brachial Position Sitting Pulse 60 Pulse Source Pulse Oximeter Pulse Oximetry (%) 99 Oxygen Delivery Method Room Air Intake Visit Reasons: 3 month f/u Intake Note: Patient is here to follow up on PAD, HLD. 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 Accompanied by: Self / Same As Patient Allergies acetaminophen [Tylenol] Allergy (Unknown, Verified 04/25/24 11:40) rash aspirin Allergy (Unknown, Verified 04/25/24 11:40) bruising atorvastatin Allergy (Unknown, Verified 04/25/24 11:40) muscle aches, forgetfulness glipizide Allergy (Unknown, Verified 04/25/24 11:40) anxiety rosuvastatin Adverse Reaction (Intermediate, Verified 04/25/24 11:40) Anxiety Medication List - Last Reconciled 04/26/24 by Sami Najera MD clotrimazole-betamethasone 1-0.05 % 1 appl topical BID 2 weeks sildenafil (Viagra) 50 mg PO DAILY PRN triamcinolone acetonide 0.5% 1 appl topical TID vardenafil 20 mg PO DAILY zolpidem 10 mg PO BEDTIME Tobacco use date assessed: 04/25/24 Fall risk assessment: No Falls in past year Last assessed Fall Risk: 04/25/24 Dental Screening Dental Screen Date: 04/25/24 Did you have a dental visit in the last 12 months?: Yes Did you have a dental problem in the last 6 months where you did not have access to dental care?: No Was dental information given to patient?: Patient has dentist HPI 3 month f/u HPI Details chronic anxiety; doing well and compliant [facility] Medical History Osteoporosis Migraine Anxiety Obesity Screening for colon cancer Screening for prostate cancer Screening for diabetes mellitus Hyperlipidemia Surgical History History of amputation of finger of right hand History of colonoscopy History of tooth extraction History of cholecystectomy History of surgery on arm History of repair of rotator cuff Family History Father CVD (cardiovascular disease) Mother Stroke Diabetes Brother Coronary artery sclerosis Social History Housing: House Alcohol intake: never Patient Tobacco Use Status: Current someday Tobacco user Tobacco use type: Pipe e-Cigarette/Vaping Use: Never Used Second Hand Smoke Exposure: No service: Yes 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 1. Little interest or pleasure in doing things: not at all 2. Feeling down, depressed, or hopeless: not at all 3. Trouble falling or staying asleep, or sleeping too much: not at all 4. Feeling tired or having little energy: not at all 5. Poor appetite or overeating: not at all 6. Feeling bad about yourself - or that you are a failure or have let yourself or your family down: not at all 7. Trouble concentrating on things, such as reading the newspaper or watching television: not at all 8. Moving or speaking so slowly that other people could have noticed. Or the opposite - being so fidgety or restless that you have been moving around a lot more than usual: not at all 9. Thoughts that you would be better off or of hurting yourself in some way: not at all Total score: 0 Depression Screening Interpretation: Negative Depression Screening Done: Yes Source: Developed by Drs. Dawson Stout, Christen Guzman, James Pena and colleagues, with an educational fariba from [employer]. Thrive Questionnaire Date Thrive assessed: 04/25/24 I am a: Patient What is your living situation today?: I have a steady place to live Within the past 12 months, did the food you bought not last and you didn't have the money to get more?: Never true Within the past 12 months, did you worry whether your food would run out before you got money to buy more?: Never true Do you have trouble paying for medicines?: No Do you have trouble getting transportation to medical appointments?: No Do you have trouble paying your heating and electricity bill?: No Do you have trouble taking care of your child, family member or friend?: No Do you have trouble with day-to-day activities such as bathing, preparing meals, shopping, managing finances, etc.?: No Are you currently unemployed and looking for a job?: No Are you interested in more education?: No Currently or been in a relationship where the following occur: No concerns reported THRIVE Score: 0 AUDIT C Alcohol Use Questionnaire (AUDIT-C) 1. How often do you have a drink containing alcohol?: Never Total Score: 0 SERGEY-7 AMB Questionnaire SERGEY-7 Date SERGEY - 7 assessed: 04/25/24 Feeling nervous, anxious, or on edge: 0 = Not at all Not being able to stop or control worryin = Not at all Worrying too much about different things: 0 = Not at all Trouble relaxin = Not at all Being so restless that it is hard to sit still: 0 = Not at all Becoming easily annoyed or irritable: 0 = Not at all Feeling afraid as if something awful might happen: 0 = Not at all Total SERGEY-7 score (0-4 normal; 5-9 mild; 10-14 moderate; 15-21 severe): 0 Source: Developed by Drs. Dawson Stout, Christen Guzman, James Pena and colleagues, with an educational fariba from [employer]. Review of Systems Const Denies chills, Denies headache(s) and Denies weight loss ENT Denies headache(s) Card Denies chest pain, Denies syncope, Denies irregular heart rhythm and Denies dyspnea Resp Denies chest congestion, Denies cough and Denies dyspnea GI Denies abdominal pain, Denies change in stool character, Denies nausea and Denies vomiting Musc Denies deformity and Denies joint swelling Neuro Denies syncope and Denies headache(s) Physical exam (Primary Care) Vital Signs: Last Vital Signs Pulse 60 04/25/24 11:40 BP 130/72 04/25/24 11:40 Pulse Ox 99 04/25/24 11:40 Oxygen Delivery Method Room Air 04/25/24 11:40 BMI result Body Mass Index 34.4 Tobacco/Smoking Status: Tobacco use Status Tobacco use date assessed 04/25/24 04/25/24 11:44 Patient Tobacco Use Status Current someday Tobacco 04/25/24 11:37 Tobacco use type Pipe 04/25/24 11:37 e-Cigarette/Vaping Use Never Used 04/25/24 11:37 PHQ-9: PHQ-9 Score PHQ-9: Total score 0 04/25/24 11:44 Depression Screening Interpretation: Negative Thrive Assessment: Date of Thrive Assessment Date Thrive assessed 04/25/24 04/25/24 11:44 Currently or been in a relationship where the following occur: No concerns reported Const General: cooperative, comfortable, no acute distress and alert Neck Neck: Yes no lymphadenopathy Thyroid: Thyroid normal Resp Effort & Inspection: normal respiratory effort Auscultation: clear to auscultation bilaterally Percussion: percussion normal Cardio Jugular venous distension: no JVD Palpation: normal PMI Rate: regular rate Rhythm: regular rhythm Heart sounds: S1 normal heart sound present and S2 normal heart sound present GI Inspection: Yes normal to inspection Palpation (GI): No hepatosplenomegaly present Skin General skin exam: no rashes or lesions noted Extrem General: Yes no clubbing, cyanosis or edema Coding Level of Care Code Est Pt Level 3 (41528) Diagnoses Anxiety F41.9 Assessment & Plan Assessment & Plan (1) Anxiety: Code(s): F41.9 - Anxiety disorder, unspecified Category: Medical Plan: stable; same rx Medications: Refilled vardenafil 20 mg PO DAILY 30 tabs 6RF
[2024-04-25 11:40] VITALS: BP 130/72; PULSE 60; O2SAT 99; BMI 34.4
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
== END 2024-04-25 12:12 | disposition home or self-care (01) ==
PROVIDERS: PCP Internal Medicine; Visit Provider Internal Medicine
DX: F41.9 Anxiety disorder, unspecified (principal)

== ENCOUNTER → 2024-04-25 11:31 | Outpatient (BNVA) | payer MEDICARE, SELFPAY | PROVIDERS: PCP Internal Medicine; Visit Provider Internal Medicine | DX: F41.9 Anxiety disorder, unspecified (principal) | CPT/HCPCS: 96127; 99212 ==

== ENCOUNTER 2024-05-17 14:31 | Inpatient (IN) | payer MEDICARE, SELFPAY ==
--- NOTE | ~2024-05-17 | XR_ITS ---
EXAMINATION: XR CHEST CLINICAL INFORMATION: cough COMPARISON: 11/12/2018. TECHNIQUE: Frontal view of the chest was obtained. FINDINGS: Cardiac, hilar, and mediastinal contours appear normal. The lungs are clear bilaterally. There is no pneumothorax or effusion. There is no focal soft tissue or osseous abnormality. Spinal degenerative changes present. XR/XR chest 1V IMPRESSION: No active pulmonary disease. Electronically signed by: Alen Stearns MD 05/17/2024 03:47 PM [facility]
--- NOTE | ~2024-05-17 | US_ITS ---
CLINICAL HISTORY: elevated ammonia, history of ETOH US abdomen limited Comparison: None Findings: Pancreas is poorly seen. The aorta and inferior vena cava are normal caliber. The liver is normal in size and echotexture. There is no intrahepatic bile duct dilatation. The common duct is Ten mm in diameter. The gallbladder is normal. There is no sonographic Andrews sign. The main portal vein is antegrade. The right kidney is 10.9 cm in length. No ascites. IMPRESSION: The common bile duct is dilated. There is no definite evidence of intrahepatic biliary ductal dilatation. Consider CT as clinically necessary. This document has been electronically signed by: Jose Parker MD on 05/18/2024 11:30:59
--- NOTE | ~2024-05-17 | MR_ITS ---
EXAMINATION: MR BRAIN WITHOUT CONTRAST CLINICAL INFORMATION: Slurred speech. COMPARISON: None available. TECHNIQUE: MRI of the brain was obtained using routine sequences without contrast. FINDINGS: There is an irregular hyperintense T2 FLAIR restricted diffusion without susceptibility centered in the right para midline ruperto. No acute intracranial hemorrhage, mass effect, midline shift, hydrocephalus or herniation. Bilateral multifocal patchy deep periventricular white matter hyperintense T2 FLAIR signal involving centrum semiovale and quigley radiata. Multifocal old lacunar infarcts in the basal ganglia with the cribriform morphology pattern and the corpus striatrum nuclei. Old lacunar infarct left thalamus. Flow-void signal within the main cerebral vessels is normal. Sellar/suprasellar region is normal. Craniocervical junction is intact and normal. Prominence of the extra-axial CSF spaces cerebral sulci and ventricles. Extra-axial CSF prominence in the left medial parietal region. MR/MR head/brain wo con IMPRESSION: Acute nonhemorrhagic stroke/ischemia, right mid ruperto likely involving the computational scientist ruperto arteries. Small vessel occlusive disease. Electronically signed by: Rashawn Razo MD 05/18/2024 01:25 PM [facility]
--- NOTE | ~2024-05-17 | CT_ITS ---
EXAMINATION: CT ANGIOGRAM HEAD AND NECK CLINICAL INFORMATION: Slurred speech, left leg weakness, dizziness x24 hours. COMPARISON: 11/13/2018. TECHNIQUE: Noncontrast axial imaging of the head was performed. This was followed by test bolus sequences and head and neck intravenous bolus administration 70 mL of Omnipaque 350 contrast. Helical imaging was performed in the axial plane from the aortic arch to the skull vertex. A [address] head was also obtained. The data was processed at the cytogenetics technologist's workstation for generation of MIP sequences. Angled MIPs and volume rendered reformatted images were also generated at an offline 3D workstation. Stenoses are assessed in accordance with NASCET criteria unless otherwise indicated. This CT examination was performed using dose optimization techniques as appropriate, variously including the following: *Automated exposure control *Adjustment of mA and/or kV according to patient size (this includes techniques or standardized protocols for targeted exams where dose is matched to indication/reason for exam; i.e. extremities or head) *Use of iterative reconstruction technique FINDINGS: NONCONTRAST HEAD CT: There is no evidence of intracranial hemorrhage or extra-axial fluid collection. There is no mass effect, or edema. No CT evidence of acute territorial infarct. Ventricles, sulci, and cisterns are normal in size and configuration for patient age. No hydrocephalus. No midline shift. Mild hypoattenuation the right cerebellar hemisphere is felt to represent artifact. Negative hyperdense MCA sign. No insular ribbon sign. There are mild supratentorial regions of white matter hypoattenuation, in keeping with mild small vessel ischemic changes. Partial empty sella Globes and orbital contents image normally. No extracranial soft tissue abnormalities. The paranasal sinuses, mastoid air cells, and tympanic cavities are normally aerated. No suspicious bony abnormalities. NECK CTA: -AORTIC ARCH: Normal in caliber. Mild atheromatous plaque. -GREAT VESSEL ORIGINS: 2 vessel branching pattern. No stenoses. -RIGHT COMMON CAROTID ARTERY: Normal in course and caliber to the level of the bifurcation. -CERVICAL RIGHT INTERNAL CAROTID ARTERY: Mild calcific atherosclerotic disease of the carotid bulb and proximal internal carotid artery without flow-limiting stenosis. Remainder of the vessel is mildly tortuous into the skull base but maintains normal caliber. -LEFT COMMON CAROTID ARTERY: Normal in course and caliber level of bifurcation. -CERVICAL LEFT INTERNAL CAROTID ARTERY: Mild calcific atherosclerotic disease of the carotid bulb and proximal internal carotid artery without flow-limiting stenosis. Remainder of the vessel is normal in caliber and course into the skull base. -CERVICAL RIGHT VERTEBRAL ARTERY: Nondominant. Patent origin, and normal in course and caliber into the skull base. -CERVICAL LEFT VERTEBRAL ARTERY: Dominant. Mild narrowing at the origin due to soft plaque. Vessel otherwise normal in course and caliber into the skull base. OTHER, SOFT TISSUES: -Lung apices are clear. -Normal-appearing thyroid. -No mass or abnormal adenopathy in the neck. CTA OF THE BRAIN: -INTRACRANIAL INTERNAL CAROTID ARTERIES: Calcific atherosclerotic disease of the intracranial internal carotid arteries without occlusion or high-grade stenosis. Approximate 50% stenosis of the left paraclinoid ICA due to calcific plaque. -RIGHT ANTERIOR CEREBRAL ARTERY: Normal A1 segment. Normal arborization of the distal segments. -LEFT ANTERIOR CEREBRAL ARTERY: Normal A1 segment. Normal arborization of the distal segments. -ANTERIOR COMMUNICATING ARTERY: Normal. -RIGHT MIDDLE CEREBRAL ARTERY: Mild stenosis in the distal M1 segment. Otherwise normal caliber M1 segment. Normal arborization of the distal segments. -LEFT MIDDLE CEREBRAL ARTERY: Normal M1 segment of the MCA without focal stenosis or occlusion. Normal arborization of the distal segments. -RIGHT VERTEBRAL ARTERY V4: Nondominant. Normal in course and caliber. Patent PICA branch. -LEFT VERTEBRAL ARTERY V4: Dominant. Normal in course and caliber. Patent PICA branch. -BASILAR ARTERY: Normal without focal stenosis or occlusion. Normal appearance of the proximal superior cerebellar arteries. Normal basilar tip. -RIGHT POSTERIOR CEREBRAL ARTERY: Normal P1 segment. Short segment high-grade stenosis in the P5 segment (series 10, image 325), with a slightly more distal high-grade stenosis (series 10, image 319). The branches more distal to this are slightly oligemic. -LEFT POSTERIOR CEREBRAL ARTERY: Normal P1 segment. Normal opacification of the distal DB2 DEVELOPER segments. -POSTERIOR COMMUNICATING ARTERIES: Diminutive but present bilaterally. Normal opacification of the superior sagittal, straight, transverse, and sigmoid sinuses. No venous thrombosis. MIPPED reformatted images demonstrate mild oligemia of the right DB2 DEVELOPER territory. CT/CT angio head neck IMPRESSION: 1. Noncontrast head CT demonstrating no evidence of acute territorial edematous infarction, intracranial hemorrhage or mass effect. 2. Neck CTA demonstrating no significant stenosis, dissection, or occlusion of the major arterial cervical vasculature. 3. Head CTA demonstrating no major arterial branch occlusion. There are multifocal short segment stenoses of the distal right DB2 DEVELOPER branches, P5 segments and more distally, with mild oligemia of the right distal DB2 DEVELOPER distribution and watershed regions with the right MCA. There is evidence of atherosclerotic disease of the right greater than left customer service consultant. 4. Approximately 50% stenosis of the left paraclinoid ICA due to calcific plaque. 5. No additional significant stenosis, occlusion, or aneurysm in the intracranial circulation. Findings communicated to the care provider of the [facility] via phone call at 4:09 PM, 05/17/2024. Electronically signed by: Alen Stearns MD 05/17/2024 04:16 PM [facility]
[2024-05-17 14:42] VITALS: BP 140/80; PULSE 65; RESP 18; TEMP 36.3; O2SAT 100; BMI 34.4
--- NOTE | 2024-05-17 14:44 | ED.NEUROSD ---
HPI - Neuro Symptoms/Deficit General Chief Complaint: Neuro Symptoms/Deficit Stated Complaint: Slurred speech Time Seen by Provider: 05/17/24 14:53 Source: patient and family Mode of arrival: ambulatory Limitations: no limitations History of Present Illness ED Provider: Dr. Radha Melchor HPI Narrative: Patient comes to the emergency room complaining of feeling unwell. Patient's main complaint is that he has stuffy nose. Patient states that for the last couple of days, he had a migraine but it is pretty much now resolved. According to the patient's partner, the patient had an aura and migraine 2 days ago. Seems that his aura consists of hypoglycemia. Patient's partner reports that the patient has had intermittent slurred speech. Also, the partner states that the patient has been under a lot of stress. Also, patient has been stressing about memory loss. Seems that patient has maternal side of the family have issues with memory loss and patient is dressing that he is heading the same way. According to the patient's partner, he does have slightly increased memory loss, however, he attributes it to the patient's age. Patient is not on any blood thinners. Onset of symptoms it is unclear, patient and his partner keeps saying that happened yesterday afternoon, no specific time, estimating proximally good 24 hours. The partner states that patient has been previously admitted for numbness of upper and lower extremity, patient was diagnosed with a migraine. However, this is the 1st time that patient is having intermittent slurred speech. Also, lately in the last few days, patient has been having intermittent trouble using the phone. Patient's seems to be confused on how to open it and how to use it. Patient known to have spinal stenosis and unable to move much his left leg. Patient drags his leg when he walks, this has been ongoing for about one year Related Data Home Medications ?Medication ?Instructions ?Recorded ?Confirmed melatonin 10 mg tablet 10 mg PO BEDTIME PRN Sleep 05/17/24 05/17/24 Allergies Allergy/AdvReac Type Severity Reaction Status Date / Time acetaminophen [Tylenol] Allergy Unknown rash Verified 05/17/24 14:46 aspirin Allergy Unknown bruising Verified 05/17/24 14:46 atorvastatin Allergy Unknown muscle Verified 05/17/24 14:46 aches, forgetfulness glipizide Allergy Unknown anxiety Verified 05/17/24 14:46 rosuvastatin AdvReac Intermediate Anxiety Verified 05/17/24 14:46 Review of Systems Review of Systems: Constitutional : No Weight loss, No Fever, No Chills, No Night Sweats, No Fatigue, No Malaise ENT/Mouth : No Hearing loss, No Ear Pain, No Nasal Congestion, No Sinus Pain, No Hoarseness, No sore throat, No Rhinorrhea, No Swallowing Difficulty Eyes: No Eye Pain, No Swelling, No Redness, No Foreign Body, No Discharge, No Vision Changes Cardiovascular : No Chest Pain, No SOB, No Dyspnea on Exertion, No Orthopnea, No Edema, No Palpitations Respiratory : No Cough, No Sputum, No Wheezing, No Smoke Exposure, No Dyspnea Gastrointestinal : No Nausea, No Vomiting, No Diarrhea, No Constipation, No abdominal Pain, No Hematochezia, No Melena Genitourinary : no irregular bleeding, No Dysuria, No Urinary Frequency, No Hematuria, No Urinary Incontinence, No Urgency, No Flank Pain, No Urinary Flow Changes, No Hesitancy Musculoskeletal : No joint pain, No Myalgias, No Joint Swelling Skin : No Skin Lesions, No rash Neuro : Complaining of chronic left leg weakness and dragging due to spinal stenosis, ongoing over a year. Complaining of intermittent slurred speech for several days, more frequent for the last 24 hours. Psych : No Anxiety/Panic, No Depression, No SI/HI/AH/VH, No Social Issues, Heme/Lymph: No Bruising, No Bleeding,No Lymphadenopathy Endocrine : No Polyuria, No Polydipsia, No Temperature Intolerance PMFSH Past Medical History Medical History Osteoporosis Migraine Anxiety Obesity Screening for colon cancer Screening for prostate cancer Screening for diabetes mellitus Hyperlipidemia Surgical History History of amputation of finger of right hand History of colonoscopy History of tooth extraction History of cholecystectomy History of surgery on arm History of repair of rotator cuff Family History Family History Father CVD (cardiovascular disease) Mother Stroke Diabetes Brother Coronary artery sclerosis Social History Social History Housing: House Alcohol intake: never Patient Tobacco Use Status: Current someday Tobacco user Tobacco use type: Pipe Smoked in Last 30 Days: No e-Cigarette/Vaping Use: Never Used Second Hand Smoke Exposure: No Use of substances other than those prescribed or required for medical reasons: No Advance Directives: No Advance Directives Information Provided: No Do you have a plan to hurt others: No Plan service: Yes Current occupational 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 Oriented X3. No acute distress. Eyes: Pupils equal, round and reactive to light. ENT: Pharynx normal. Neck: Normal inspection. Neck supple. No lymph nodes noted. No crepitus CVS: Normal heart rate and rhythm. Pulses normal. Normal S1 and S2 Respiratory: No respiratory distress. Breath sounds normal. No Wheezing. No rales Abdomen: Soft and nontender. No rigidity. No distention. Skin: Skin warm and dry. Normal skin color. Normal skin turgor. Extremities: No lower extremity edema. No Lacerations. No Rash Neuro: Oriented X 3. Chronic left leg weakness Psych: calm, cooperative, normal affect Course Course Course Narrative: This is an RME: Additional HPI, ROS, PE not included below will be deferred to primary provider. RME assessment and note performed by: Katie Miller PA-C This is a 89-otno-lsa-male, with a hx of migraines, HLD, who presents to the ER with complaints of slurred speech, dizziness, off balance, left leg weakness since yesterday. He is not on AC. He is alert and oriented, speaking full sentences. No focal deficits on my examination however patient immediately brought back to the main emergency department for further management. Plan: Brought patient back to the main emergency department for further workup given neurologic type symptoms. Medications Administered Discontinued Medications Generic Name Dose Route Start Last Admin Trade Name Freq PRN Reason Stop Dose Admin Aspirin 325 mg 05/17/24 17:38 05/17/24 18:07 Aspirin Enteric Coated 325 Mg Tablet.Dr NEAL 05/17/24 17:39 325 mg ONCE ONE Administration Iohexol 100 ml 05/17/24 15:10 05/17/24 15:10 Iohexol 350 Mg/Ml 100 Ml Infus..Btl IV 05/17/24 15:11 70 ml ONCE ONE Administration Medical Decision Making Medical Decision Making [facility] Narrative: My interpretation of labs: No significant abnormality in patient's hematology and chemistry. CTA scan does not show any major arterial branch block occlusion Patient does have history of migraines with auras and neurological deficits. , however, patient has not had any headache or auras. Patient's partner at bedside, seems that patient is trying to minimize his symptoms. Overall, patient agrees that he has more recurrent symptoms than usual. Agrees to stay for further evaluation I discussed the patient with Dr. Forman from the Medicine team, patient being admitted Differential Diagnosis Differential Diagnoses: The differential diagnosis associated with the presentation includes (CVA, TIA, migraine) Admission/Observation Consideration of admission/observation: Escalation of care including admission/observation considered Consult Healthcare Provider Management of the patient was discussed with: Hospitalist Lab Data [facility] Lab Attestation statement: I reviewed the patient's lab results. 05/17/24 15:34 05/17/24 15:34 Labs: Lab Results 05/17/24 05/17/24 05/17/24 Range/Units 15:32 15:34 17:57 WBC 6.9 (4.8-10.8) X10*3/uL RBC 4.81 (4.60-5.80) X10*6/uL Hgb 14.0 (14.0-18.0) g/dl Hct 42.4 (42.0-52.0) % MCV 88.1 (80.0-98.0) fL MCH 29.1 (27.0-33.0) pg MCHC 33.0 (31.0-36.0) g/dl RDW 13.5 (11.0-16.0) % Plt Count 282 (160-400) X10*3/uL MPV 9.0 L (9.4-12.4) fL Immature Gran % (Auto) 0.3 (0.0-0.4) % Neut % (Auto) 55.0 (45-73) % Lymph % (Auto) 29.7 (20-40) % Hale % (Auto) 12.1 H (2-11) % Eos % (Auto) 1.7 (0-4) % Baso % (Auto) 1.2 (0-2) % Lymph # (Auto) 2.1 (1.2-4.9) X10*3/uL Hale # (Auto) 0.8 (0.1-1.2) X10*3/uL Eos # (Auto) 0.1 (0.0-0.4) X10*3/uL Baso # (Auto) 0.1 (0.0-0.2) X10*3/uL Abs Immat Gran (auto) 0.02 (0.00-0.03) X10*3/uL Absolute Neuts (auto) 3.8 (2.0-8.3) x10*3/uL Absolute Nucleated RBC 0.000 (0.0-0.012) X10*3/uL Nucleated RBC % (auto) 0.0 (0.0-0.2) /100WBC PT 12.0 (10.9-12.4) SEC INR 1.0 (0.9-1.1) APTT 29.6 (26.0-36.8) SEC Sodium 139 (135-145) mmol/L Potassium 3.9 (3.3-5.1) mmol/L Chloride 110 H (96-108) mmol/L Carbon Dioxide 23 (22-29) mmol/L Anion Gap 10 L (12-20) BUN 17 H (9-16) mg/dL Creatinine 0.73 (0.5-1.4) mg/dL Estim Creat Clear Calc 99.6 Estimated GFR > 60 POC Glucose 100 (60-115) mg/dL Random Glucose 90 (60-115) mg/dL Calcium 9.2 (8.4-10.2) mg/dL Total Bilirubin 0.4 (0.0-1.0) mg/dL Direct Bilirubin 0.1 (0.0-0.5) mg/dL AST 34 (5-37) U/L ALT 24 (0-40) U/L Alkaline Phosphatase 103 (39-117) U/L Troponin I High Sens 8.9 (<3.5-35.0) ng/L Total Protein 7.4 (6.5-8.0) g/dL Albumin 3.6 (3.5-5.0) g/dL Triglycerides 183 H (<150) mg/dL Cholesterol 215 H (<200) mg/dL LDL Cholesterol, Calc 146 H (<100) mg/dL HDL Cholesterol 33 L (>40) mg/dL Urine Color Yellow Urine Appearance Clear Urine pH 8.0 (5.0-9.0) Ur Specific [place] >= 1.030 H (1.005-1.025) Urine Protein Negative (Neg-Trace) mg/dL Urine Glucose (UA) Negative (Negative) mg/dL Urine Ketones Negative (Negative) mg/dL Urine Blood Negative (Negative) Urine Nitrite Negative (Negative) Ur Leukocyte Esterase Negative (Negative) Urine Opiates Screen Not Detected (Not Detect) Ur Buprenorphine Scrn Not Detected (Not Detect) ng/mL Ur Oxycodone Screen Not Detected (Not Detect) ng/mL Urine Methadone Screen Not Detected (Not Detect) ng/mL Urine Fentanyl Screen Not Detected (Not Detect) Ur Barbiturates Screen Not Detected (Not Detect) Ur Phencyclidine Scrn Not Detected (Not Detect) Ur Amphetamines Screen Not Detected (Not Detect) U Benzodiazepines Scrn Not Detected (Not Detect) Urine Cocaine Screen Not Detected (Not Detect) U Marijuana (THC) Screen Not Detected (Not Detect) COVID-19 (SHANNON) Negative (Negative) COVID-19 Clin Com See Note Influenza Type A (VARSHA) Negative (Negative) Influenza Type B (VARSHA) Negative (Negative) Influenza A & B Note See Note Independent Interpretation I performed an independent interpretation of an: CT Scan Radiology Impression Discussion of test interpretation with radiology: I have reviewed the radiologist's reading. Radiologist Impression: 1. Noncontrast head CT demonstrating no evidence of acute territorial edematous infarction, intracranial hemorrhage or mass effect. 2. Neck CTA demonstrating no significant stenosis, dissection, or occlusion of the major arterial cervical vasculature. 3. Head CTA demonstrating no major arterial branch occlusion. There are multifocal short segment stenoses of the distal right ELECTRIC ACCOUNTING MACHINE OPERATOR branches, P5 segments and more distally, with mild oligemia of the right distal ELECTRIC ACCOUNTING MACHINE OPERATOR distribution and watershed regions with the right MCA. There is evidence of atherosclerotic disease of the right greater than left dry cleaning manager. 4. Approximately 50% stenosis of the left paraclinoid ICA due to calcific plaque. 5. No additional significant stenosis, occlusion, or aneurysm in the intracranial circulation. Critical Care Time Critical Care Time Critical Care Time: Yes Total Critical Care Time: 60 Attestation: I have personally provided critical care time. Time includes review of lab data, radiology results, discussion with consultants, and monitoring for potential decompensation. Intervention performed as documented. Discharge Plan Discharge Clinical Impression: Brain TIA Patient Disposition: Admitted As Inpatient
--- NOTE | 2024-05-17 14:49 | ECG_ITS ---
Test Reason : nuro symptoms Blood Pressure : */* mmHG Vent. Rate : 63 BPM Atrial Rate : 63 BPM P-R Int : 168 ms QRS Dur : 92 ms QT Int : 430 ms P-R-T Axes : 59 -51 25 degrees QTcB Int : 440 ms Normal sinus rhythm Left anterior fascicular block Moderate voltage criteria for LVH, may be normal variant ( R in aVL , Sea product ) Cannot rule out Inferior infarct (cited on or before 12-Nov-2018) Anteroseptal infarct (cited on or before 12-Nov-2018) Abnormal ECG When compared with ECG of 12-Nov-2018 21:05, No significant changes seen Referred By: Katie Miller Electronically Signed By: RAYRAY SULLIVAN
[2024-05-17] MEDS: iohexoL 350 MG/ML 100 ML INFUS..BTL IV (15:10)
[2024-05-17 15:35] VITALS: BP 171/79; PULSE 63; RESP 14; TEMP 36.8; O2SAT 100
[2024-05-17 15:36] LABS: Glucose, Whole Blood 100 mg/dL (60-115)
[2024-05-17 15:38] LABS: MANUAL DIFF FLAG NO
[2024-05-17 15:40] LABS: Basophils Absolute Auto 0.1 X10*3/uL (0.0-0.2); Basophils Percent Auto 1.2 % (0-2); Eosinophils Absolute Auto 0.1 X10*3/uL (0.0-0.4); Eosinophils Percent Auto 1.7 % (0-4); Hematocrit 42.4 % (42.0-52.0); Imm Gran Abs Auto 0.02 X10*3/uL (0.00-0.03); Imm Gran Pct Auto 0.3 % (0.0-0.4); Lymphocytes Absolute Auto 2.1 X10*3/uL (1.2-4.9); Lymphocytes Percent Auto 29.7 % (20-40); Mean Corpuscular Hemoglobin 29.1 pg (27.0-33.0); Mean Corpuscular Volume 88.1 fL (80.0-98.0); Monocytes Absolute Auto 0.8 X10*3/uL (0.1-1.2); Monocytes Percent Auto 12.1 % (2-11); Neutrophils Absolute Auto 3.8 x10*3/uL (2.0-8.3); Platelet Count 282 X10*3/uL (160-400); Red Blood Count 4.81 X10*6/uL (4.60-5.80); Red Cell Distribution Width 13.5 % (11.0-16.0); White Blood Count 6.9 X10*3/uL (4.8-10.8)
--- NOTE | 2024-05-17 15:44 | MHC.EDTECH ---
[facility] assumed care of Patient at 1515 ,ekg taken and was read by Provider ,blood drawn ,flu/covid swab collected all sent to lab ,vitals taken ,Patient was change into hospital attire and hooked up to shelter monitor ,call [place] within Pt reach ,Patient is aware we need a urine sample .
[2024-05-17 15:50] LABS: Partial Thromboplastin Time 29.6 SEC (26.0-36.8)
[2024-05-17 15:56] LABS: Anion Gap 10 (12-20); Blood Urea Nitrogen 17 mg/dL (9-16); Calcium 9.2 mg/dL (8.4-10.2); Carbon Dioxide 23 mmol/L (22-29); Chloride 110 mmol/L (96-108); Cholesterol 215 mg/dL (<200); Creatinine Clr Calc Pharmacy 99.6; Estimated Glomerular Filt Rate > 60; Glucose Random 90 mg/dL (60-115); HDL Cholesterol 33 mg/dL (>40); LDL Cholesterol Calculated 146 mg/dL (<100); Potassium 3.9 mmol/L (3.3-5.1); Sodium 139 mmol/L (135-145); Triglycerides 183 mg/dL (<150)
[2024-05-17 16:00] LABS: IDNOW Serial# 55D5AD1C; Influenza A Negative (Negative); Influenza B2 Negative (Negative)
[2024-05-17 16:01] LABS: COVID-19 Test Negative (Negative); IDNOW Serial# 16C4AD1C
[2024-05-17 16:02] LABS: Troponin-I High Sensitivity 8.9 ng/L (<3.5-35.0)
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
[2024-05-17 17:52] VITALS: BP 173/81; PULSE 63; RESP 15; TEMP 36.9; O2SAT 97
--- NOTE | 2024-05-17 17:58 | MHC.EDTECH ---
1800 rounding done ,vitals taken ,urine sample collected and sent to lab .
[2024-05-17] MEDS: Aspirin Enteric Coated 325 MG TABLET.DR PO (18:07)
[2024-05-17 18:15] LABS: Appearance Urine Clear; Color Urine Yellow; Glucose Urine UA Negative (Negative); Leukocyte Esterase Urine Negative (Negative); Nitrite Urine Negative (Negative); Specific Gravity - Urine >= 1.030 (1.005-1.025); Urine Blood Negative (Negative); Urine Ketones Negative (Negative); Urine Protein Negative (Neg-Trace)
[2024-05-17 18:17] LABS: Amphetamine Screen Urine Not Detected (Not Detect); Barbiturates, Urine Not Detected (Not Detect); Benzodiazepines Screen Urine Not Detected (Not Detect); Buprenorphine Scr Not Detected (Not Detect); Cannabinoid Screen Urine Not Detected (Not Detect); Cocaine Screen Urine Not Detected (Not Detect); Fentanyl, urine Not Detected (Not Detect); Methadone Screen, Urine Not Detected (Not Detect); Opiate Screen Urine Not Detected (Not Detect); Oxycodone Screen Urine Not Detected (Not Detect); Phencyclidine Screen Urine Not Detected (Not Detect)
--- NOTE | 2024-05-17 19:04 | PHA.MEDREC ---
Addendum entered by Qasim Carney RPh 05/17/24 19:51: Med rec was reviewed by [facility]. Original Note: Pharmacy Consult ? Medication Reconciliation Pharmacy has completed the medication reconciliation. Spoke to patient to confirm med list.
[2024-05-17 19:26] LABS: Alanine Aminotransferase 24 U/L (0-40); Albumin Level 3.6 g/dL (3.5-5.0); Alkaline Phosphatase 103 U/L (39-117); Aspartate Amino Transferase 34 U/L (5-37); Bilirubin Direct 0.1 mg/dL (0.0-0.5); Bilirubin Total 0.4 mg/dL (0.0-1.0); Total Protein 7.4 g/dL (6.5-8.0)
[2024-05-17 19:34] VITALS: BP 173/78; PULSE 60; RESP 12; O2SAT 96
[2024-05-17 19:55] VITALS: BP 172/78; PULSE 61; RESP 16; TEMP 36.4; O2SAT 96
--- NOTE | 2024-05-17 20:00 | MHC.EDTECH ---
2000 rounding done ,vitals taken ,Patient vbg and ammonia level and sent to lab ,Patient belongings list done ,Patient had Chicken salad sandwich for snack and drank 2 cans of diet andrews peterson .
--- NOTE | 2024-05-17 20:05 | PM.IMHP ---
History of Present Illness Date of Service: 05/17/24 Chief Complaint: ams 73M PMH diabetes no longer on medications, morbid obesity with recent weight loss in the last few years due to dental issues, migraines, spinal stenosis with chronic left lower extremity weakness, hyperlipidemia presented with altered mental status. History taken from patient and . Symptoms began about 2 days prior to presentation. Noted to have some expressive aphasia, slow/slurred speech, memory loss, episodes of confusion. Specifically mentioned episode of not remembering code to sign into phone. Patient reports feeling unwell, tired, no specific symptom. No chest pain, fever, chills, shortness of breath, focal neurological deficit. In ED CTA head and neck without acute stroke. Noted to be hypertensive. Review of Systems Review of Systems: Yes all other systems are reviewed and are negative [facility] Medical History Osteoporosis Migraine Anxiety Obesity Screening for colon cancer Screening for prostate cancer Screening for diabetes mellitus Hyperlipidemia Family History Father CVD (cardiovascular disease) Mother Stroke Diabetes Brother Coronary artery sclerosis Surgical History History of amputation of finger of right hand History of colonoscopy History of tooth extraction History of cholecystectomy History of surgery on arm History of repair of rotator cuff Social History Housing: House Alcohol intake: never Patient Tobacco Use Status: Current someday Tobacco user Tobacco use type: Pipe Smoked in Last 30 Days: No e-Cigarette/Vaping Use: Never Used Second Hand Smoke Exposure: No Use of substances other than those prescribed or required for medical reasons: No Advance Directives: No Advance Directives Information Provided: No Do you have a plan to hurt others: No Plan service: Yes Current occupational 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 Cognitive needs: No Hearing needs: Yes Vision needs: Yes (glasses) Meds Allergies Allergy/AdvReac Type Severity Reaction Status Date / Time acetaminophen [Tylenol] Allergy Unknown rash Verified 05/17/24 14:46 aspirin Allergy Unknown bruising Verified 05/17/24 14:46 atorvastatin Allergy Unknown muscle Verified 05/17/24 14:46 aches, forgetfulness glipizide Allergy Unknown anxiety Verified 05/17/24 14:46 rosuvastatin AdvReac Intermediate Anxiety Verified 05/17/24 14:46 Active Medications: Current Medications Calcium Carbonate (Calcium Carbonate 750 Mg Tab.Chew) 750 mg PO Q4H PRN PRN Reason: Heartburn Enoxaparin Sodium (Enoxaparin Sodium 40 Mg/0.4 Ml Syringe) 40 mg SUBCUT Q24H [facility] Magnesium Hydroxide (Milk Of Magnesia 30 Ml Oral.Susp) 30 ml PO DAILY PRN PRN Reason: Constipation Melatonin (Melatonin 3 Mg Tablet) 6 mg PO BEDTIME PRN PRN Reason: Insomnia Sodium Chloride (0.9 % Sodium Chloride Flush 3 Ml Syringe) 3 ml IVFLUSH QSHIFT [facility] Home Medications ?Medication ?Instructions ?Recorded ?Confirmed ?Last Taken ?Type melatonin 10 mg tablet 10 mg PO BEDTIME PRN Sleep 05/17/24 05/17/24 Unknown History Physical Exam Vital Signs and Narrative: Vital Signs: Last Vital Signs Temp 97.5 F 05/17/24 19:55 Pulse 61 05/17/24 19:55 Resp 16 05/17/24 19:55 BP 172/78 H 05/17/24 19:55 Pulse Ox 96 05/17/24 19:55 O2 Del Method Room Air 05/17/24 19:55 BMI result Body Mass Index 34.4 General: AO X 3, no acute distress Resp: CTA bilateral, no accessory muscles used CVS: S1,S2,RRR GI: soft, non tender, non distended Neuro: Mild left lower extremity weakness, did not appreciate any signs of aphasia at this time, alert Psych: appropriate affect, appropriate insight Results Labs 05/17/24 15:34 05/17/24 15:34 Labs: Laboratory Results - last 24 hr 05/17/24 05/17/24 05/17/24 15:32 15:34 17:57 MCV 88.1 MCH 29.1 MCHC 33.0 RDW 13.5 Plt Count 282 MPV 9.0 L Immature Gran % (Auto) 0.3 Neut % (Auto) 55.0 Lymph % (Auto) 29.7 [place] % (Auto) 12.1 H Eos % (Auto) 1.7 Baso % (Auto) 1.2 Lymph # (Auto) 2.1 [place] # (Auto) 0.8 Eos # (Auto) 0.1 Baso # (Auto) 0.1 Abs Immat Gran (auto) 0.02 Absolute Neuts (auto) 3.8 Absolute Nucleated RBC 0.000 Nucleated RBC % (auto) 0.0 PT 12.0 INR 1.0 APTT 29.6 Anion Gap 10 L Estim Creat Clear Calc 99.6 Estimated GFR > 60 POC Glucose 100 Random Glucose 90 Calcium 9.2 Total Bilirubin 0.4 Direct Bilirubin 0.1 AST 34 ALT 24 Alkaline Phosphatase 103 Troponin I High Sens 8.9 Total Protein 7.4 Albumin 3.6 Triglycerides 183 H Cholesterol 215 H LDL Cholesterol, Calc 146 H HDL Cholesterol 33 L Urine Color Yellow Urine Appearance Clear Urine pH 8.0 Ur Specific [place] >= 1.030 H Urine Protein Negative Urine Glucose (UA) Negative Urine Ketones Negative Urine Blood Negative Urine Nitrite Negative Ur Leukocyte Esterase Negative Urine Opiates Screen Not Detected Ur Buprenorphine Scrn Not Detected Ur Oxycodone Screen Not Detected Urine Methadone Screen Not Detected Urine Fentanyl Screen Not Detected Ur Barbiturates Screen Not Detected Ur Phencyclidine Scrn Not Detected Ur Amphetamines Screen Not Detected U Benzodiazepines Scrn Not Detected Urine Cocaine Screen Not Detected U Marijuana (THC) Screen Not Detected COVID-19 (SHANNON) Negative COVID-19 Clin Com See Note Influenza Type A (VARSHA) Negative Influenza Type B (VARSHA) Negative Influenza A & B Note See Note Imaging Radiologist's Impressions: Impressions Head/Neck CTA 05/17/24 14:55 IMPRESSION: 1. Noncontrast head CT demonstrating no evidence of acute territorial edematous infarction, intracranial hemorrhage or mass effect. 2. Neck CTA demonstrating no significant stenosis, dissection, or occlusion of the major arterial cervical vasculature. 3. Head CTA demonstrating no major arterial branch occlusion. There are multifocal short segment stenoses of the distal right MARKETING EDUCATION TEACHER branches, P5 segments and more distally, with mild oligemia of the right distal MARKETING EDUCATION TEACHER distribution and watershed regions with the right MCA. There is evidence of atherosclerotic disease of the right greater than left binding bench worker. 4. Approximately 50% stenosis of the left paraclinoid ICA due to calcific plaque. 5. No additional significant stenosis, occlusion, or aneurysm in the intracranial circulation. Findings communicated to the care provider of the [facility] via phone call at 4:09 PM, 05/17/2024. Electronically signed by: Alen Stearns MD 05/17/2024 04:16 PM EST RP Chest X-Ray 05/17/24 15:00 IMPRESSION: No active pulmonary disease. Electronically signed by: Alen Stearns MD 05/17/2024 03:47 PM EST RP Assessment and Plan (1) Obesity: Status: Acute Plan 73M PMH diabetes no longer on medications, morbid obesity with recent weight loss in the last few years due to dental issues, migraines, spinal stenosis with chronic left lower extremity weakness, hyperlipidemia presented with altered mental status Aphasia, confusion Differential includes TIA/CVAs Patient with reported allergy to both aspirin and statin Check MRI, neuro eval, PT Follow up TSH, ammonia, VBG History of diabetes Resolved after weight loss Hypertension Will start on amlodipine Hyperlipidemia Does not tolerate statins DVT prophylaxis Lovenox Full Code Quality Stroke Does the patient have a stroke diagnosis?: No VTE Prior VTE?: No VTE Risk Level:: Medical - moderate - high VTE Device Contraindication: Treatment Not Indicated VTE Drug Contraindication: N/A - Med Ordered
[2024-05-17 20:14] LABS: VBG Base Excess 0.8 mmol/L; VBG HCO3 23 mmol/L (22-26); VBG pCO2 33 mmHg; VBG pH 7.46 (7.32-7.43); VBG pO2 99 mmHg
[2024-05-17 20:17] LABS: Venous Blood Gas Refer to POC result
[2024-05-17 20:18] LABS: Ammonia 64 umol/L (13-55)
[2024-05-17 20:37] LABS: Thyroid Stimulating Hormone 0.91 uIU/mL (0.32-4.0)
[2024-05-17 22:11] VITALS: BP 167/84; PULSE 63; RESP 24; TEMP 36.6; O2SAT 95
--- NOTE | 2024-05-17 22:19 | MHC.EDTECH ---
Patient was moved into a hospital bed for comfort .
[2024-05-18] VITALS (10 sets, daily range): BP systolic 147–168; BP diastolic 60–81; PULSE 57–69; RESP 12–20; TEMP 36.4–37.2; O2SAT 95–97; BMI 32.0
--- NOTE | 2024-05-18 00:09 | MHC.EDTECH ---
0000 rounding done ,vitals taken ,patient sleeping ,,no apparent distress noted ,All Safety measure in Place .Plan of care continue .
[2024-05-18] MEDS: 0.9 % Sodium Chloride Flush 3 ML SYRINGE IVFLUSH ×3 (01:14→16:56)
--- NOTE | 2024-05-18 02:13 | MHC.EDTECH ---
0200 rounding done ,Patient sleeping ,Breathes are even and unlabored ,Call [place] within Pt reach .Plan of care continue .
--- NOTE | 2024-05-18 04:08 | MHC.EDTECH ---
0400 rounding done ,vitals taken ,Patient was reposition and boosted up in bed ,Patient resting with eyes closed ,All safety measure in Place ,Plan of care continue .
[2024-05-18 04:43] LABS: Hematocrit 40.2 % (42.0-52.0); Mean Corpuscular HGB Conc 34.8 g/dl (31.0-36.0); Mean Corpuscular Hemoglobin 29.9 pg (27.0-33.0); Mean Corpuscular Volume 85.9 fL (80.0-98.0); Mean Platelet Volume 8.6 fL (9.4-12.4); Platelet Count 253 X10*3/uL (160-400); Red Blood Count 4.68 X10*6/uL (4.60-5.80); Red Cell Distribution Width 13.3 % (11.0-16.0); White Blood Count 6.5 X10*3/uL (4.8-10.8)
[2024-05-18 05:00] LABS: Anion Gap 10 (12-20); Blood Urea Nitrogen 16 mg/dL (9-16); Calcium 9.1 mg/dL (8.4-10.2); Carbon Dioxide 22 mmol/L (22-29); Chloride 110 mmol/L (96-108); Creatinine Clr Calc Pharmacy 106.9; Estimated Glomerular Filt Rate > 60; Glucose Random 84 mg/dL (60-115); Potassium 3.8 mmol/L (3.3-5.1); Sodium 138 mmol/L (135-145)
[2024-05-18] MEDS: amLODIPine Besylate 5 MG TABLET PO (08:30)
[2024-05-18] MEDS: Enoxaparin Sodium 40 MG/0.4 ML SYRINGE SUBCUT (08:30)
[2024-05-18] MEDS: Lactulose 20 GM/30 ML SOLUTION PO (08:39)
--- NOTE | 2024-05-18 08:59 | PC.NURSE ---
alert, speech clear, steady gait with walker but states he feels a little off and slightly unbalanced but was steady on his feet, went to the bathroom and had a bm and urinated, pt states he feels mentally clear, thought it was may 16 2023 and quickly realized he was slightly off when I told him the actual date, no drift, b/l hand strength and smile
[2024-05-18 09:10] LABS: Estimated Average Glucose 108 mg/dL; Hemoglobin A1c % 5.4 % (<6.0); Total Hemoglobin (HGBA1C) 3702.6148 umol/L
--- NOTE | 2024-05-18 09:20 | MHC.CM.PN ---
Patient is here with AMS, Slurred speech and Confusion; CM spoke with /Primary Contact/Dionte @ [phone] and addressed [facility] and dc planning with Dionte (original [facility] will be mailed to Dionte and a copy will be placed on the chart). PT is recommending STR and Dionte has approved the initiation of a SNF/STR bed search. CM has initiated and will follow for dc planning. 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 PCP is Dr. Sami Najera and Patient will require BLS to [facility]. Patient will benefit from completing a HCP when MS improves. CM will follow.
--- NOTE | 2024-05-18 09:53 | PM.NEUROCN ---
History of Present Illness Data of Consult Service Date: 05/18/24 Primary Care Provider: Sami Najera MD [facility] Reason for consult: Slurred speech This is a 73-year-old man with a past history of diabetes no longer on medications, morbid obesity with recent weight loss in the last few years due to dental issues, migraines, spinal stenosis with chronic left lower extremity weakness,Dragging his left foot in the last month, hyperlipidemia presented with altered mental status. History taken from patient and . Symptoms began about 2 days prior to presentation. Noted to have some slow/slurred speech, Was altered with memory loss, episodes of confusion. Specifically mentioned episode of not remembering code to sign into phone. Patient reports feeling unwell, tired, no specific symptom. No chest pain, fever, chills, shortness of breath, focal neurological deficit. In ED CTA head and neck without acute stroke. Noted to be hypertensive. [facility] Past Medical History Medical History Osteoporosis Migraine Anxiety Obesity Screening for colon cancer Screening for prostate cancer Screening for diabetes mellitus Hyperlipidemia Family History Family History Father CVD (cardiovascular disease) Mother Stroke Diabetes Brother Coronary artery sclerosis Surgical History Surgical History History of amputation of finger of right hand History of colonoscopy History of tooth extraction History of cholecystectomy History of surgery on arm History of repair of rotator cuff Social History Social History Housing: House Alcohol intake: never Patient Tobacco Use Status: Never used Tobacco Tobacco use type: Pipe Smoked in Last 30 Days: No e-Cigarette/Vaping Use: Never Used Second Hand Smoke Exposure: No Use of substances other than those prescribed or required for medical reasons: No Advance Directives: No Advance Directives Information Provided: No Do you have a plan to hurt others: No Plan Nutrition Risks: No Nutritional Risk service: Yes Current occupational 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 Cognitive needs: No Hearing needs: Yes Vision needs: Yes (glasses) Meds Allergies Allergy/AdvReac Type Severity Reaction Status Date / Time acetaminophen [Tylenol] Allergy Unknown rash Verified 05/17/24 14:46 aspirin Allergy Unknown bruising Verified 05/17/24 14:46 atorvastatin Allergy Unknown muscle Verified 05/17/24 14:46 aches, forgetfulness glipizide Allergy Unknown anxiety Verified 05/17/24 14:46 rosuvastatin AdvReac Intermediate Anxiety Verified 05/17/24 14:46 Active Medications: Current Medications Amlodipine Besylate (Amlodipine Besylate 5 Mg Tablet) 5 mg PO DAILY [facility]; Protocol Last Admin: 05/18/24 08:30 Dose: 5 mg Calcium Carbonate (Calcium Carbonate 750 Mg Tab.Chew) 750 mg PO Q4H PRN PRN Reason: Heartburn Enoxaparin Sodium (Enoxaparin Sodium 40 Mg/0.4 Ml Syringe) 40 mg SUBCUT Q24H [facility] Last Admin: 05/18/24 08:30 Dose: 40 mg Lactulose (Lactulose 20 Gm/30 Ml Solution) 20 gm PO BID [facility] Last Admin: 05/18/24 08:39 Dose: 20 gm Magnesium Hydroxide (Milk Of Magnesia 30 Ml Oral.Susp) 30 ml PO DAILY PRN PRN Reason: Constipation Melatonin (Melatonin 3 Mg Tablet) 6 mg PO BEDTIME PRN PRN Reason: Insomnia Sodium Chloride (0.9 % Sodium Chloride Flush 3 Ml Syringe) 3 ml IVFLUSH QSHIFT [facility] Last Admin: 05/18/24 08:38 Dose: 3 ml Home Medications ?Medication ?Instructions ?Recorded ?Confirmed ?Last Taken ?Type melatonin 10 mg tablet 10 mg PO BEDTIME PRN Sleep 05/17/24 05/17/24 Unknown History Physical Exam Vital Signs: Vital Signs: Last Vital Signs Temp 98.2 F 05/18/24 06:14 Pulse 57 05/18/24 07:16 Resp 12 05/18/24 06:14 BP 154/74 H 05/18/24 08:30 Pulse Ox 96 05/18/24 07:16 O2 Del Method Room Air 05/18/24 06:14 BMI result Body Mass Index 34.4 Neuro: Other: He's alert, oriented x3. His speech and language functions are normal. There is no dysarthria. No visual field cut. He has a pronation and flexion drift of the left upper extremity with left upper extremity weakness 4+/5. Left lower extremity 5 minus/5, hyperreflexia on the left side with an extensor plantar response. Results Labs 05/18/24 04:38 05/18/24 04:38 Labs: Short CBC 05/17/24 05/18/24 Range/Units 15:34 04:38 WBC 6.9 6.5 (4.8-10.8) X10*3/uL Hgb 14.0 14.0 (14.0-18.0) g/dl Hct 42.4 40.2 L (42.0-52.0) % Plt Count 282 253 (160-400) X10*3/uL BMP 05/17/24 05/18/24 15:34 04:38 Sodium 139 138 Potassium 3.9 3.8 Chloride 110 H 110 H Carbon Dioxide 23 22 BUN 17 H 16 Creatinine 0.73 0.68 Calcium 9.2 9.1 Liver Function 05/17/24 Range/Units 15:34 Total Bilirubin 0.4 (0.0-1.0) mg/dL Direct Bilirubin 0.1 (0.0-0.5) mg/dL AST 34 (5-37) U/L ALT 24 (0-40) U/L Alkaline Phosphatase 103 (39-117) U/L Albumin 3.6 (3.5-5.0) g/dL Urine 05/17/24 Range/Units 17:57 Urine Color Yellow Urine Appearance Clear Urine pH 8.0 (5.0-9.0) Ur Specific [place] >= 1.030 H (1.005-1.025) Urine Protein Negative (Neg-Trace) mg/dL Urine Glucose (UA) Negative (Negative) mg/dL Assessment and Plan (1) Brain TIA: Status: Acute He appears to have had a right hemisphere stroke. CTA does not show any occlusive disease. Recommendation: MRI of the brain. Echocardiogram. PT OT.Aspirin 81 mg a day. Atorvastatin. Procedures Date of Service Date of Service: 05/18/24
[2024-05-18 10:03] LABS: Ammonia 39 umol/L (13-55)
--- NOTE | 2024-05-18 12:29 | MHC.STROKE ---
Met with patient to discuss plan of care. Pt awake, alert, oriented and answering questions appropriately. Stroke Education provided to patient. Pamphlet distributed. Risk factors including medical history, medications, activity, and diet discussed. Pt was seen by neurology. Currently awaiting MRI. Pt updated on plan of care and is agreeable to plan. all questions answered. Will continue to assist as needed.
--- NOTE | 2024-05-18 13:08 | PC.NURSE ---
pt to mri
--- NOTE | 2024-05-18 14:25 | P.PNIM_ITS ---
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 c/o LLE weakness speech deficit resolved Review of Systems Review of Systems: Yes all other systems are reviewed and are negative Physical Exam 2 Vital Signs: Vital Signs: Last Vital Signs Temp 97.9 F 05/18/24 11:13 Pulse 62 05/18/24 11:13 Resp 18 05/18/24 11:13 BP 147/80 H 05/18/24 11:13 Pulse Ox 96 05/18/24 11:13 O2 Del Method Room Air 05/18/24 11:13 BMI result Body Mass Index 34.4 Gen: in no acute distress HEENT: sclera anicteric, moist mucus membranes Neck: supple Lungs: clear to auscultation bilaterally Heart: regular rate and rhythm, no murmurs Abd: soft, non-tender, non-distended Ext: no edema Skin: warm/well-perfused Neuro: alert and oriented x3, no facial droop, no obvious speech difficulty, L hand chronically weak, LLE 4/5 strength Psych: appropriate affect Objective Data Active Medications Amlodipine Besylate (Amlodipine Besylate 5 Mg Tablet) 5 mg PO DAILY [facility]; Protocol Last Admin: 05/18/24 08:30 Dose: 5 mg Documented By: BRENDA Aspirin (Aspirin 81 Mg Tab.Chew) 81 mg PO DAILY [facility] Calcium Carbonate (Calcium Carbonate 750 Mg Tab.Chew) 750 mg PO Q4H PRN PRN Reason: Heartburn Enoxaparin Sodium (Enoxaparin Sodium 40 Mg/0.4 Ml Syringe) 40 mg SUBCUT Q24H [facility] Last Admin: 05/18/24 08:30 Dose: 40 mg Documented By: BRENDA Lactulose (Lactulose 20 Gm/30 Ml Solution) 20 gm PO BID [facility] Last Admin: 05/18/24 08:39 Dose: 20 gm Documented By: BRENDA Magnesium Hydroxide (Milk Of Magnesia 30 Ml Oral.Susp) 30 ml PO DAILY PRN PRN Reason: Constipation Melatonin (Melatonin 3 Mg Tablet) 6 mg PO BEDTIME PRN PRN Reason: Insomnia Sodium Chloride (0.9 % Sodium Chloride Flush 3 Ml Syringe) 3 ml IVFLUSH QSHIFT [facility] Last Admin: 05/18/24 08:38 Dose: 3 ml Documented By: BRENDA Labs 05/18/24 04:38 05/18/24 04:38 Labs: Laboratory Results - last 24 hr 05/17/24 05/17/24 05/17/24 15:32 15:34 17:57 MCV 88.1 MCH 29.1 MCHC 33.0 RDW 13.5 Plt Count 282 MPV 9.0 L Immature Gran % (Auto) 0.3 Neut % (Auto) 55.0 Lymph % (Auto) 29.7 Dale % (Auto) 12.1 H Eos % (Auto) 1.7 Baso % (Auto) 1.2 Lymph # (Auto) 2.1 Dale # (Auto) 0.8 Eos # (Auto) 0.1 Baso # (Auto) 0.1 Abs Immat Gran (auto) 0.02 Absolute Neuts (auto) 3.8 Absolute Nucleated RBC 0.000 Nucleated RBC % (auto) 0.0 PT 12.0 INR 1.0 APTT 29.6 VBG pH VBG pCO2 VBG pO2 VBG HCO3 VBG O2 Saturation VBG Base Excess Anion Gap 10 L Estim Creat Clear Calc 99.6 Estimated GFR > 60 POC Glucose 100 Random Glucose 90 Estimat Average Glucose Hemoglobin A1c % Calcium 9.2 Total Bilirubin 0.4 Direct Bilirubin 0.1 AST 34 ALT 24 Alkaline Phosphatase 103 Ammonia Troponin I High Sens 8.9 Total Protein 7.4 Albumin 3.6 Triglycerides 183 H Cholesterol 215 H LDL Cholesterol, Calc 146 H HDL Cholesterol 33 L TSH 0.91 Urine Color Yellow Urine Appearance Clear Urine pH 8.0 Ur Specific [place] >= 1.030 H Urine Protein Negative Urine Glucose (UA) Negative Urine Ketones Negative Urine Blood Negative Urine Nitrite Negative Ur Leukocyte Esterase Negative Urine Opiates Screen Not Detected Ur Buprenorphine Scrn Not Detected Ur Oxycodone Screen Not Detected Urine Methadone Screen Not Detected Urine Fentanyl Screen Not Detected Ur Barbiturates Screen Not Detected Ur Phencyclidine Scrn Not Detected Ur Amphetamines Screen Not Detected U Benzodiazepines Scrn Not Detected Urine Cocaine Screen Not Detected U Marijuana (THC) Screen Not Detected COVID-19 (SHANNON) Negative COVID-19 Clin Com See Note Influenza Type A (VARSHA) Negative Influenza Type B (VARSHA) Negative Influenza A & B Note See Note 05/17/24 05/17/24 05/18/24 20:03 20:10 04:38 MCV 85.9 MCH 29.9 MCHC 34.8 RDW 13.3 Plt Count 253 MPV 8.6 L Immature Gran % (Auto) Neut % (Auto) Lymph % (Auto) Dale % (Auto) Eos % (Auto) Baso % (Auto) Lymph # (Auto) Dale # (Auto) Eos # (Auto) Baso # (Auto) Abs Immat Gran (auto) Absolute Neuts (auto) Absolute Nucleated RBC 0.000 Nucleated RBC % (auto) 0.0 PT INR APTT VBG pH 7.46 H VBG pCO2 33 VBG pO2 99 VBG HCO3 23 VBG O2 Saturation 99.0 VBG Base Excess 0.8 Anion Gap 10 L Estim Creat Clear Calc 106.9 Estimated GFR > 60 POC Glucose Random Glucose 84 Estimat Average Glucose 108 Hemoglobin A1c % 5.4 Calcium 9.1 Total Bilirubin Direct Bilirubin AST ALT Alkaline Phosphatase Ammonia 64 H Troponin I High Sens Total Protein Albumin Triglycerides Cholesterol LDL Cholesterol, Calc HDL Cholesterol TSH Urine Color Urine Appearance Urine pH Ur Specific [place] Urine Protein Urine Glucose (UA) Urine Ketones Urine Blood Urine Nitrite Ur Leukocyte Esterase Urine Opiates Screen Ur Buprenorphine Scrn Ur Oxycodone Screen Urine Methadone Screen Urine Fentanyl Screen Ur Barbiturates Screen Ur Phencyclidine Scrn Ur Amphetamines Screen U Benzodiazepines Scrn Urine Cocaine Screen U Marijuana (THC) Screen COVID-19 (SHANNON) COVID-19 Clin Com Influenza Type A (VARSHA) Influenza Type B (VARSHA) Influenza A & B Note 05/18/24 09:47 MCV MCH MCHC RDW Plt Count MPV Immature Gran % (Auto) Neut % (Auto) Lymph % (Auto) Dale % (Auto) Eos % (Auto) Baso % (Auto) Lymph # (Auto) Dale # (Auto) Eos # (Auto) Baso # (Auto) Abs Immat Gran (auto) Absolute Neuts (auto) Absolute Nucleated RBC Nucleated RBC % (auto) PT INR APTT VBG pH VBG pCO2 VBG pO2 VBG HCO3 VBG O2 Saturation VBG Base Excess Anion Gap Estim Creat Clear Calc Estimated GFR POC Glucose Random Glucose Estimat Average Glucose Hemoglobin A1c % Calcium Total Bilirubin Direct Bilirubin AST ALT Alkaline Phosphatase Ammonia 39 Troponin I High Sens Total Protein Albumin Triglycerides Cholesterol LDL Cholesterol, Calc HDL Cholesterol TSH Urine Color Urine Appearance Urine pH Ur Specific [place] Urine Protein Urine Glucose (UA) Urine Ketones Urine Blood Urine Nitrite Ur Leukocyte Esterase Urine Opiates Screen Ur Buprenorphine Scrn Ur Oxycodone Screen Urine Methadone Screen Urine Fentanyl Screen Ur Barbiturates Screen Ur Phencyclidine Scrn Ur Amphetamines Screen U Benzodiazepines Scrn Urine Cocaine Screen U Marijuana (THC) Screen COVID-19 (SHANNON) COVID-19 Clin Com Influenza Type A (VARSHA) Influenza Type B (VARSHA) Influenza A & B Note MRIB 05/18/24 Acute nonhemorrhagic stroke/ischemia, right mid ruperto likely involving the dish person ruperto arteries. Small vessel occlusive disease. abd US 05/18/24 The common bile duct is dilated. There is no definite evidence of intrahepatic biliary ductal dilatation. Consider CT as clinically necessary. Assessment and Plan (1) Acute stroke due to ischemia: Status: Acute Plan d2 for 73yo M with hx DM2 though A1c only 5.3 now, obesity, migraines, HLD, spinal stenosis, chronic LLE waekness presented after episode of aphasia and confusion and found to have acute pontine CVA acute ischemic CVA - Neuro consulted - per pt, ASA in past only caused bruising so will start ASA [was listed as allergy in record] - intolerant of atorva + rosuvastatin; will start ezetimibe given elevated LDL - PT/OT/BIOLOGY PROFESSOR consultations - TTE, telemetry hx DM2 - resolved after weight loss HTN - d/c amlodipine for now; allow permissive hypertension hyperammonemia - unclear cause; no evidence of liver disease on US; will d/c lactulose; recheck level in AM dilated CBD - LFTs normal; per Radiology normal diameter for age; does not need further workup VTE ppx - enoxaparin dispo - STR In my clinical judgment, the patient requires continued inpatient hospitalization for the following reasons: CVA workup, placement Total time managing care of this patient today: 45 minutes. Quality Stroke Does the patient have a stroke diagnosis?: No VTE Prior VTE?: No VTE Risk Level:: Medical - moderate - high VTE Device Contraindication: Treatment Not Indicated VTE Drug Contraindication: N/A - Med Ordered
--- NOTE | 2024-05-18 14:30 | CA_ITS ---
Transthoracic Echocardiogram Patient (Last, First, Middle): Bob Han M Gender: Male Date of : 1950 Age: 73 Procedure Date: 05/18/2024 Procedure Type: Transthoracic Echocardiogram Location: ER Height: 167.64 cm Weight: 96.62 kg BSA: 2.05 m2 Heart Rate: bpm Light Coil Winder: AMBER Referring MD: Stephanie Colin MD Symptoms: cva Study Quality: Fair ECG Rhythm: Sinus Conclusions: - The left ventricular systolic function is normal. The calculated ejection fraction is 63% by biplane method. - There is moderate aortic valve stenosis. Findings Procedure Information Contrast agent, definity, is being given per protocol without apparent complications. Left Ventricle Normal left ventricular cavity size. There is mildly increased left ventricular wall thickness. The left ventricular systolic function is normal. The calculated ejection fraction is 63% by biplane method. There is no evidence of regional wall motion abnormalities. Evidence suggests grade I (mild) diastolic dysfunction. Right Ventricle Mildly increased right ventricular cavity size. There is normal right ventricular systolic function. Atria The left atrium is mildly dilated. The right atrium is normal in size. Aortic Valve There is moderate calcification of the aortic valve. There is moderate aortic valve stenosis. The peak aortic velocity is 3.19 m/s with a calculated peak gradient of 41 mmHg. The mean gradient is 22 mmHg. The aortic valve area is 1.31 cm2. There is no aortic valve regurgitation. Mitral Valve The mitral valve appears normal. There is mild mitral annular calcification. There is no mitral valve regurgitation. There is no mitral valve stenosis. Pulmonic Valve The pulmonic valve is likely normal. Tricuspid Valve There is trace tricuspid valve regurgitation. There is no evidence of pulmonary hypertension. Great Vessels The asc aorta is normal in size. Venous The inferior vena cava is normal in size and collapses greater than 50% with inspiration. Pericardium/Pleural There is a trivial pericardial effusion. Prior Study Comparison Changes noted compared to prior study dated: 11/13/2018. Progression of aortic valve stenosis. Measurements 2D Linear Measurements IVSd: 1.09 0.6-0.9/0.6-1.0 cm LVIDd: 4.18 3.9-5.3/4.2-5.9 cm LVIDd Index: 2.04 2.4-3.2/2.2-3.1 cm/m2 LVIDs: 2.87 2.0-3.6 cm LVPWd: 1.07 0.7-1.1 cm Ao Root: 3.70 2.1-3.5 cm LA Diam: 4.10 2.7-3.8/3.0-4.0 cm LAIDs Index: 2.00 1.5-2.3 cm/m2 LV Mass: 189.08 67-162/88-224 g LV Mass Index: 92.23 43-95/49-115 g/m2 LVOT Diam: 2.30 3.0+(-)1.3 cm 2D Systolic Function EF 4C: 64.40 >55% EF 2C: 61.00 >55% EF BiP: 63.10 >55% Mitral Valve MV VTI: 0.31 MV Pk Eitan: 1.03 MV Mn Eitan: 0.62 MV Pk Grad: 4.00 MV Mn Grad: 2.00 MV Pk E: 0.69 MV PK A: 1.04 MV Decel Time: 384.00 E/A: 0.70 E'Lateral: 6.53 E'Medial: 5.87 E/E' Med: 11.80 E/E' Lat: 10.60 PHT: 112.00 MVA PHT: 1.96 MVA Continuity: 3.29 Decel [place]: 1.80 Aortic Valve AoV Pk Eitan: 3.19 AoV Mn Eitan: 2.13 AoV VTI: 0.77 AoV Pk Grad: 41.00 Aov Mn Grad: 22.00 DIONI Cont.VTI: 1.31 LVOT LVOT Pk Eitan: 0.97 LVOT Mn Eitan: 0.68 LVOT VTI: 0.24 LVOT Pk Grad: 4.00 LVOT Mn Grad: 2.00 LVOT Diam: 2.30 LVOT Area: 4.15 Diastolic Function MV Pk E: 0.69 MV Pk A: 1.04 E/A: 0.70 E'Medial: 5.87 E/E' Med: 11.80 E' Laterial: 6.53 E/E' Lat: 10.60 Right Ventricle TAPSE (mm): 17.00 TVS' Eitan: 19.00 Tricuspid Valve TR Pk Eitan: 2.50 TR Pk Grad: 25.00 RA Press: 3.00 RVSP: 28.00 Great Vessels Aorta Ao Root-2D: 3.70 2.0-3.7 cm Ao Asc: 3.40 2.1-3.4 cm Updated in Other Vendor System with Status of Final Faizan Francois MD electronically signed on 05/19/2024 10:49:08 AM with status of Final
[2024-05-18] MEDS: Aspirin 81 MG TAB.CHEW PO (15:49)
[2024-05-18] MEDS: Ezetimibe 10 MG TABLET PO (15:49)
[2024-05-18] MEDS: Melatonin 3 MG TABLET 6 MG PO (21:16)
[2024-05-19] VITALS (7 sets, daily range): BP systolic 139–159; BP diastolic 65–89; PULSE 63–86; RESP 16–20; TEMP 36.1–37.2; O2SAT 93–96
[2024-05-19 06:49] LABS: Ammonia 42 umol/L (13-55)
--- NOTE | 2024-05-19 08:49 | MHC.CM.PN ---
CM met with Patient at bedside. Patient was able to complete a HCP, naming his /Dionte as his Agent. CM addressed IMM (changed to Inpatient yesterday)with Patient and provided him with the original and a copy has been placed on the chart. Patient's MS appears to have improved but Patient states that he still wants [facility] included on all dc planning. CM will follow.
[2024-05-19] MEDS: Enoxaparin Sodium 40 MG/0.4 ML SYRINGE SUBCUT (09:11)
[2024-05-19] MEDS: Ezetimibe 10 MG TABLET PO (09:12)
[2024-05-19] MEDS: Aspirin 81 MG TAB.CHEW PO (09:12)
[2024-05-19] MEDS: 0.9 % Sodium Chloride Flush 3 ML SYRINGE IVFLUSH ×2 (09:15→18:19)
--- NOTE | 2024-05-19 10:23 | MHC.CM.PN ---
Per MD in [facility]OUNDS, Patient is medically cleared for dc to Acute Rehab today. Per Patient's preference, CM has left a detailed message for /HCP/Peter at listed #, requesting his choice between [facility] and [facility]. CM awaits a return call from HCP.
--- NOTE | 2024-05-19 11:54 | MHC.CM.PN ---
Patient and /HCP/Peter have chosen [facility]; BRIANA has asked [facility] to initiate insurance auth. BRIANA will follow.
--- NOTE | 2024-05-19 13:13 | P.PNIM_ITS ---
Subjective Subjective Date of Service: 05/19/24 Interval History: no speech deficit LUE weakness Review of Systems Review of Systems: Yes all other systems are reviewed and are negative Physical Exam 2 Vital Signs: Vital Signs: Last Vital Signs Temp 99.0 F 05/19/24 10:58 Pulse 70 05/19/24 10:58 Resp 20 05/19/24 10:58 BP 159/76 H 05/19/24 10:58 Pulse Ox 96 05/19/24 10:58 O2 Del Method Room Air 05/19/24 10:58 BMI result Body Mass Index 32.0 Gen: in no acute distress HEENT: sclera anicteric, moist mucus membranes Neck: supple Lungs: clear to auscultation bilaterally Heart: regular rate and rhythm, no murmurs Abd: soft, non-tender, non-distended Ext: no edema Skin: warm/well-perfused Neuro: alert and oriented x3, no facial droop, no obvious speech difficulty, LUE 3/5 strength Psych: appropriate affect Objective Data Active Medications Aspirin (Aspirin 81 Mg Tab.Chew) 81 mg PO DAILY [facility] Last Admin: 05/19/24 09:12 Dose: 81 mg Documented By: LYNSEY Calcium Carbonate (Calcium Carbonate 750 Mg Tab.Chew) 750 mg PO Q4H PRN PRN Reason: Heartburn Ezetimibe (Ezetimibe 10 Mg Tablet) 10 mg PO DAILY [facility] Last Admin: 05/19/24 09:12 Dose: 10 mg Documented By: LYNSEY Enoxaparin Sodium (Enoxaparin Sodium 40 Mg/0.4 Ml Syringe) 40 mg SUBCUT Q24H [facility] Last Admin: 05/19/24 09:11 Dose: 40 mg Documented By: LYNSEY Magnesium Hydroxide (Milk Of Magnesia 30 Ml Oral.Susp) 30 ml PO DAILY PRN PRN Reason: Constipation Melatonin (Melatonin 3 Mg Tablet) 6 mg PO BEDTIME PRN PRN Reason: Insomnia Last Admin: 05/18/24 21:16 Dose: 6 mg Documented By: ERMIASZEDana Sodium Chloride (0.9 % Sodium Chloride Flush 3 Ml Syringe) 3 ml IVFLUSH QSHIFT [facility] Last Admin: 05/19/24 09:15 Dose: 3 ml Documented By: LYNSEY Labs 05/18/24 04:38 05/18/24 04:38 Labs: Laboratory Results - last 24 hr 05/19/24 06:39 Hold Purple Top SEE NOTE Ammonia 42 Assessment and Plan (1) Acute stroke due to ischemia: Status: Acute Plan d3 for 73yo M with hx DM2 though A1c only 5.3 now, obesity, migraines, HLD, spinal stenosis, chronic LLE waekness presented after episode of aphasia and confusion and 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 The calculated ejection fraction is 63% by biplane method. - There is moderate aortic valve stenosis. hx DM2 - resolved after weight loss HTN - resume amlodipine after 24-48h of permissive hypertension hyperammonemia - unclear cause; no evidence of liver disease on US; d/c'ed lactulose; repeat ammonia normal dilated CBD - LFTs normal; per Radiology normal diameter for age; does not need further workup VTE ppx - enoxaparin dispo - AIR; [facility] In my clinical judgment, the patient requires continued inpatient hospitalization for the following reasons: AIR placement authorization Total time managing care of this patient today: 35 minutes. Quality Stroke Does the patient have a stroke diagnosis?: No VTE Prior VTE?: No VTE Risk Level:: Medical - moderate - high VTE Device Contraindication: Treatment Not Indicated VTE Drug Contraindication: N/A - Med Ordered
--- NOTE | 2024-05-19 13:31 | MHC.SL.SWA ---
Speech Pathologist Impression: WFL Swallow; Mild Expressive Aphasia Risk of Aspiration Due to: Neurological Condition Dysphasia Diet Status: No Change Liquid Consistency and Strategies for Safe Swallow: Liquid Intake Recommendation: Thin Liquid Intake Strategies: Small Sips Solid Food Consistency: Dietary Recommendations: Regular Additional Modifications to Solid Foods: Recommend CONTINUE on REGULAR solids/THIN liquids Oral Medication Intake: Whole with Liquid Please contact the pharmacy regarding appropriate crushable or liquid drug formulations that are available whenever modified delivery is recommended. Compensatory Strategies and Precautions to be Taken for Safe Swallow: Sitting Upright (90 deg) Small Bites and Sips Alternate Liquids/Solids Rate of Ingestion Change Supervision While Eating and Drinking for Safe Swallow: None Needed Recommendation for Speech: Speech Therapy through Rehab Facility Comment: Recommend ST at Rehab facility for concerns related to ?cognition/memory and mild expressive aphasia Frequency/Duration: Date Range for Service Req: Timeline to reassess: Pole Sander Operator Clinican/Clinical Fellow: No Supervisory Statement: I have reviewed and agree with the student/clinical fellow's documentation: N/A Speech Language Pathologist: Devora Watts M.A., CCC-[facility]
[2024-05-19] MEDS: Melatonin 3 MG TABLET 6 MG PO (20:02)
[2024-05-20] VITALS (7 sets, daily range): BP systolic 117–144; BP diastolic 63–80; PULSE 62–73; RESP 16–20; TEMP 36.3–37.4; O2SAT 94–100
[2024-05-20] MEDS: Enoxaparin Sodium 40 MG/0.4 ML SYRINGE SUBCUT (08:25)
[2024-05-20] MEDS: amLODIPine Besylate 5 MG TABLET PO (08:26)
[2024-05-20] MEDS: Aspirin 81 MG TAB.CHEW PO (08:26)
[2024-05-20] MEDS: Ezetimibe 10 MG TABLET PO (08:26)
[2024-05-20] MEDS: 0.9 % Sodium Chloride Flush 3 ML SYRINGE IVFLUSH ×2 (08:26→17:43)
--- NOTE | 2024-05-20 11:59 | MHC.CM.PN ---
EMR reviewed and per MD rounds, pt remains medically cleared for discharge pending insurance auth for acute rehab at [facility], insurance auth initiated yesterday 05/19.
--- NOTE | 2024-05-20 13:53 | P.PNIM_ITS ---
Subjective Subjective Date of Service: 05/20/24 Interval History: LUE weak, LLE slightly weak, speech OK Review of Systems Review of Systems: Yes all other systems are reviewed and are negative Physical Exam 2 Vital Signs: Vital Signs: Last Vital Signs Temp 99.4 F 05/20/24 12:00 Pulse 73 05/20/24 12:00 Resp 20 05/20/24 12:00 BP 128/72 05/20/24 12:00 Pulse Ox 100 05/20/24 12:00 O2 Del Method Room Air 05/20/24 08:00 BMI result Body Mass Index 32.0 Gen: in no acute distress HEENT: sclera anicteric, moist mucus membranes Neck: supple Lungs: clear to auscultation bilaterally Heart: regular rate and rhythm, no murmurs Abd: soft, non-tender, non-distended Ext: no edema Skin: warm/well-perfused Neuro: alert and oriented x3, no facial droop, no obvious speech difficulty, LUE 3/5 strength, LLE 4/5 strength Psych: appropriate affect Objective Data Active Medications Amlodipine Besylate (Amlodipine Besylate 5 Mg Tablet) 5 mg PO DAILY [facility]; Protocol Last Admin: 05/20/24 08:26 Dose: 5 mg Documented By: ROBB Aspirin (Aspirin 81 Mg Tab.Chew) 81 mg PO DAILY [facility] Last Admin: 05/20/24 08:26 Dose: 81 mg Documented By: ROBB Calcium Carbonate (Calcium Carbonate 750 Mg Tab.Chew) 750 mg PO Q4H PRN PRN Reason: Heartburn Ezetimibe (Ezetimibe 10 Mg Tablet) 10 mg PO DAILY [facility] Last Admin: 05/20/24 08:26 Dose: 10 mg Documented By: ROBB Enoxaparin Sodium (Enoxaparin Sodium 40 Mg/0.4 Ml Syringe) 40 mg SUBCUT Q24H [facility] Last Admin: 05/20/24 08:25 Dose: 40 mg Documented By: ROBB Magnesium Hydroxide (Milk Of Magnesia 30 Ml Oral.Susp) 30 ml PO DAILY PRN PRN Reason: Constipation Melatonin (Melatonin 3 Mg Tablet) 6 mg PO BEDTIME PRN PRN Reason: Insomnia Last Admin: 05/19/24 20:02 Dose: 6 mg Documented By: ERMIASZEDana Sodium Chloride (0.9 % Sodium Chloride Flush 3 Ml Syringe) 3 ml IVFLUSH QSHIFT [facility] Last Admin: 05/20/24 08:26 Dose: 3 ml Documented By: ROBB Labs 05/18/24 04:38 05/18/24 04:38 Assessment and Plan (1) Acute stroke due to ischemia: Status: Acute Plan d4 for 73yo M with hx DM2 though A1c only 5.3 now, obesity, migraines, HLD, spinal stenosis, chronic LLE waekness presented after episode of aphasia and confusion and 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 The calculated ejection fraction is 63% by biplane method. - There is moderate aortic valve stenosis. - Factor V Leiden sent given significant family history; f/u results as outpt hx DM2 - resolved after weight loss HTN - resumed amlodipine after 24-48h of permissive hypertension hyperammonemia - unclear cause; no evidence of liver disease on US; d/c'ed lactulose; repeat ammonia normal dilated CBD - LFTs normal; per Radiology normal diameter for age; does not need further workup VTE ppx - enoxaparin dispo - AIR; [facility] and awaiting authorization In my clinical judgment, the patient requires continued inpatient hospitalization for the following reasons: AIR placement authorization Total time managing care of this patient today: 35 minutes. Quality Stroke Does the patient have a stroke diagnosis?: No VTE Prior VTE?: No VTE Risk Level:: Medical - moderate - high VTE Device Contraindication: Treatment Not Indicated VTE Drug Contraindication: N/A - Med Ordered
--- NOTE | 2024-05-20 16:35 | P.DS_ITS ---
DS: Providers Provider Date of Service: 05/20/24 Date of admission: 05/18/24 09:42 Date of discharge: 05/20/24 Primary care physician: Sami Najera MD Consults: 05/17/24 20:00 Consult to Neurology Routine Consulting Provider: [facility] Reason for consultation: slurred speech DS: Diagnosis Discharge Diagnosis (1) Acute stroke due to ischemia: Status: Acute (2) Hyperlipidemia: Status: Acute (3) Hypertension: Status: Acute DS: Summary Hospital Course Hospital Course: From the history and physical by the admitting hospitalist, Fol Dc MD, 05/17/24: 73M PMH diabetes no longer on medications, morbid obesity with recent weight loss in the last few years due to dental issues, migraines, spinal stenosis with chronic left lower extremity weakness, hyperlipidemia presented with altered mental status. History taken from patient and . Symptoms began about 2 days prior to presentation. Noted to have some expressive aphasia, slow/slurred speech, memory loss, episodes of confusion. Specifically mentioned episode of not remembering code to sign into phone. Patient reports feeling unwell, tired, no specific symptom. No chest pain, fever, chills, shortness of breath, focal neurological deficit. In ED CTA head and neck without acute stroke. Noted to be hypertensive. ammonia mildly elevated at 64 with normal lfts, unclear significance, will start lactulose and check abd us 73yo M with hx DM2 though A1c only 5.3 now, obesity, migraines, HLD, and spinal stenosis presented after episode of aphasia and confusion and ultimately found to have acute pontine CVA. Hospital course by problem: acute ischemic CVA - Neuro consulted - Per pt, ASA in past only caused bruising so started ASA [was listed as allergy in record] and so far tolerating well - Intolerant of atorvastatin + rosuvastatin in past; started ezetimibe given elevated LDL - PT/OT/FIRMWARE TEST ENGINEER consulted, and acute inpatient rehabilitation recommended. - No arrhythmias on telemetry - TTE 05/18/24: - The left ventricular systolic function is normal. The calculated ejection fraction is 63% by biplane method. - There is moderate aortic valve stenosis. - Factor V Leiden sent given significant family history; f/u results as outpt. hx DM2 - Resolved after weight loss. A1c only 5.3. HTN - Started amlodipine after 24-48h of permissive hypertension. hyperammonemia - Unclear cause; no evidence of liver disease on US; d/c'ed lactulose; repeat ammonia normal. dilated CBD - LFTs normal; per Radiology normal diameter for age; does not need further workup [facility]. Physical Exam Vital Signs: Vital Signs: Last Vital Signs Temp 97.4 F 05/20/24 16:00 Pulse 72 05/20/24 16:00 Resp 18 05/20/24 16:00 BP 141/80 H 05/20/24 16:00 Pulse Ox 98 05/20/24 16:00 O2 Del Method Room Air 05/20/24 16:00 BMI result Body Mass Index 32.0 Discharge Plan Discharge Patient Disposition: er Inpatient Rehab Fac Discharge Diagnosis: stroke, hyperlipidemia, hypertension Referrals: [facility] [Outside] - 1 Week Sami Najera MD [Primary Care Provider] - 1 Week Discharge Medications: New amlodipine 5 mg Tablet 5 mg PO DAILY Qty: 30 0RF Protocol: Hold for SBP< HOLD for SBP < : 90 aspirin 81 mg Tablet,Chewable 81 mg PO DAILY Qty: 30 0RF ezetimibe 10 mg Tablet 10 mg PO DAILY Qty: 30 0RF Continued melatonin 10 mg Tablet 10 mg PO BEDTIME PRN (Reason: Sleep) Diet: Low salt diet Activity on Discharge: As tolerated Stand Alone Forms: Patient Portal Discharge page Print Language: Surinamese Care Plan Goals: stroke recovery and prevention Health Concerns: stroke, hyperlipidemia, hypertension Plan of Treatment: aspirin 81 mg daily ezetimibe 10 mg daily amlodipine 5 mg daily low-sodium Mediterranean diet transfer to [facility] for acute inpatient rehab Please follow up with your primary care doctor within 1 week of discharge form [facility]. Return to the hospital if you experience recurrent or worsening symptoms. Assessment: See Discharge Summary.
[2024-05-20] MEDS: Melatonin 3 MG TABLET 6 MG PO (20:44)
[2024-05-21 03:36] VITALS: BP 147/66; PULSE 60; RESP 18; TEMP 36.1; O2SAT 92
[2024-05-21 08:00] VITALS: BP 137/71; PULSE 65; RESP 18; TEMP 36; O2SAT 95
[2024-05-21 08:35] VITALS: BP 141/67; PULSE 62; O2SAT 95
[2024-05-21] MEDS: amLODIPine Besylate 5 MG TABLET PO (09:08)
[2024-05-21] MEDS: Enoxaparin Sodium 40 MG/0.4 ML SYRINGE SUBCUT (09:08)
[2024-05-21] MEDS: Aspirin 81 MG TAB.CHEW PO (09:08)
[2024-05-21] MEDS: Ezetimibe 10 MG TABLET PO (09:08)
[2024-05-21 12:00] VITALS: BP 140/68; PULSE 69; RESP 18; TEMP 36.4; O2SAT 96
--- NOTE | 2024-05-21 14:39 | HO.PM.IMPN ---
Subjective Subjective Date of Service: 05/21/24 Interval History: No acute issues overnight. We will clinical changes Review of Systems Denies chest pain Denies shortness of breath Denies nausea vomiting diarrhea Denies fever chills Physical Exam Vital Signs: Vital Signs: Last Vital Signs Temp 97.5 F 05/21/24 12:00 Pulse 69 05/21/24 12:00 Resp 18 05/21/24 12:00 BP 140/68 H 05/21/24 12:00 Pulse Ox 96 05/21/24 12:00 O2 Del Method Room Air 05/21/24 12:00 BMI result Body Mass Index 32.0 Const: Other: Awake alert no acute distress Resp: Other: Clear to auscultation bilaterally no rales rhonchi or wheezes Cardio: Other: No S4; positive S1-S2; no S3 murmurs rubs or gallops GI: Other: Soft nontender nondistended normoactive bowel sounds Neuro: Other: He's alert, oriented x3. His speech and language functions are normal. There is no dysarthria. No visual field cut. He has a pronation and flexion drift of the left upper extremity with left upper extremity weakness 4+/5. Left lower extremity 5 minus/5, hyperreflexia on the left side with an extensor plantar response. Extrem: Other: No edema bilaterally Objective Data Active Medications Amlodipine Besylate (Amlodipine Besylate 5 Mg Tablet) 5 mg PO DAILY [facility]; Protocol Last Admin: 05/21/24 09:08 Dose: 5 mg Documented By: KRISTIN Aspirin (Aspirin 81 Mg Tab.Chew) 81 mg PO DAILY [facility] Last Admin: 05/21/24 09:08 Dose: 81 mg Documented By: KRISTIN Calcium Carbonate (Calcium Carbonate 750 Mg Tab.Chew) 750 mg PO Q4H PRN PRN Reason: Heartburn Ezetimibe (Ezetimibe 10 Mg Tablet) 10 mg PO DAILY [facility] Last Admin: 05/21/24 09:08 Dose: 10 mg Documented By: KRISTIN Enoxaparin Sodium (Enoxaparin Sodium 40 Mg/0.4 Ml Syringe) 40 mg SUBCUT Q24H [facility] Last Admin: 05/21/24 09:08 Dose: 40 mg Documented By: KRISTIN Magnesium Hydroxide (Milk Of Magnesia 30 Ml Oral.Susp) 30 ml PO DAILY PRN PRN Reason: Constipation Melatonin (Melatonin 3 Mg Tablet) 6 mg PO BEDTIME PRN PRN Reason: Insomnia Last Admin: 05/20/24 20:44 Dose: 6 mg Documented By: VINAY Sodium Chloride (0.9 % Sodium Chloride Flush 3 Ml Syringe) 3 ml IVFLUSH QSHIFT HUNTER Last Admin: 05/21/24 09:05 Dose: Not Given Documented By: KRISTIN Non-Admin Reason: No Access Labs 05/18/24 04:38 05/18/24 04:38 Assessment and Plan (1) Acute stroke due to ischemia: Status: Acute (2) Hypertension: Status: Acute Plan 73yo M with hx DM2 though A1c only 5.3 now, obesity, migraines, HLD, spinal stenosis, chronic LLE waekness presented after episode of aphasia and confusion and 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 The calculated ejection fraction is 63% by biplane method. - There is moderate aortic valve stenosis. - Factor V Leiden sent given significant family history; f/u results as outpt 2. Type 2 diabetes -by history -follow up clinically 3.HTN -acceptable control on current therapies -adjust as indicated Enoxaparin Full code dispo - AIR; accepted at [facility] and awaiting authorization In my clinical judgment, the patient requires continued inpatient hospitalization for the following reasons: AIR placement authorization Quality Stroke Does the patient have a stroke diagnosis?: No VTE Prior VTE?: No VTE Risk Level:: Medical - moderate - high VTE Device Contraindication: Treatment Not Indicated VTE Drug Contraindication: N/A - Med Ordered
[2024-05-21 16:00] VITALS: BP 138/68; PULSE 71; RESP 16; TEMP 36.5; O2SAT 95
[2024-05-21 19:55] VITALS: BP 160/67; PULSE 88; RESP 18; TEMP 36.6; O2SAT 94
[2024-05-21] MEDS: Melatonin 3 MG TABLET 6 MG PO (21:56)
[2024-05-22] VITALS (9 sets, daily range): BP systolic 131–149; BP diastolic 63–75; PULSE 62–94; RESP 14–20; TEMP 36–36.8; O2SAT 60–98
[2024-05-22] MEDS: Ezetimibe 10 MG TABLET PO (10:37)
[2024-05-22] MEDS: Aspirin 81 MG TAB.CHEW PO (10:37)
[2024-05-22] MEDS: Enoxaparin Sodium 40 MG/0.4 ML SYRINGE SUBCUT (10:38)
[2024-05-22] MEDS: amLODIPine Besylate 5 MG TABLET PO (10:38)
--- NOTE | 2024-05-22 12:55 | P.PNIM_ITS ---
Subjective Subjective Date of Service: 05/22/24 Interval History: No acute issues overnight. Subjectively states increase left upper extremity movement Review of Systems Denies chest pain Denies shortness of breath Denies nausea vomiting diarrhea Denies fever chills Physical Exam 2 Vital Signs: Vital Signs: Last Vital Signs Temp 98.2 F 05/22/24 12:00 Pulse 66 05/22/24 12:00 Resp 14 05/22/24 12:00 BP 147/68 H 05/22/24 12:00 Pulse Ox 97 05/22/24 12:00 O2 Del Method Room Air 05/22/24 12:00 BMI result Body Mass Index 32.0 Const: Other: Awake alert no acute distress Resp: Other: Clear to auscultation bilaterally no rales rhonchi or wheezes Cardio: Other: No S4; positive S1-S2; no S3 murmurs rubs or gallops GI: Other: Soft nontender nondistended normoactive bowel sounds Neuro: Other: He's alert, oriented x3. His speech and language functions are normal. There is no dysarthria. No visual field cut. He has a pronation and flexion drift of the left upper extremity with left upper extremity weakness 4+/5. Left lower extremity 5 minus/5, hyperreflexia on the left side with an extensor plantar response. Extrem: Other: No edema bilaterally Objective Data Active Medications Amlodipine Besylate (Amlodipine Besylate 5 Mg Tablet) 5 mg PO DAILY [facility]; Protocol Last Admin: 05/22/24 10:38 Dose: 5 mg Documented By: KRISTIN Aspirin (Aspirin 81 Mg Tab.Chew) 81 mg PO DAILY [facility] Last Admin: 05/22/24 10:37 Dose: 81 mg Documented By: KRISTIN Calcium Carbonate (Calcium Carbonate 750 Mg Tab.Chew) 750 mg PO Q4H PRN PRN Reason: Heartburn Ezetimibe (Ezetimibe 10 Mg Tablet) 10 mg PO DAILY [facility] Last Admin: 05/22/24 10:37 Dose: 10 mg Documented By: KRISTIN Enoxaparin Sodium (Enoxaparin Sodium 40 Mg/0.4 Ml Syringe) 40 mg SUBCUT Q24H [facility] Last Admin: 05/22/24 10:38 Dose: 40 mg Documented By: KRISTIN Magnesium Hydroxide (Milk Of Magnesia 30 Ml Oral.Susp) 30 ml PO DAILY PRN PRN Reason: Constipation Melatonin (Melatonin 3 Mg Tablet) 6 mg PO BEDTIME PRN PRN Reason: Insomnia Last Admin: 05/21/24 21:56 Dose: 6 mg Documented By: VINAY Sodium Chloride (0.9 % Sodium Chloride Flush 3 Ml Syringe) 3 ml IVFLUSH QSHIFT HUNTER Last Admin: 05/22/24 10:34 Dose: Not Given Documented By: KRISTIN Non-Admin Reason: No Access Labs 05/18/24 04:38 05/18/24 04:38 Assessment and Plan (1) Acute stroke due to ischemia: Status: Acute Plan 73yo M with hx DM2 though A1c only 5.3 now, obesity, migraines, HLD, spinal stenosis, chronic LLE waekness presented after episode of aphasia and confusion and 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 The calculated ejection fraction is 63% by biplane method. - There is moderate aortic valve stenosis. - Factor V Leiden sent given significant family history; f/u results as outpt 2. Type 2 diabetes -by history -follow up clinically 3.HTN -acceptable control on current therapies -adjust as indicated Enoxaparin Full code dispo - AIR; accepted at [facility] and awaiting authorization In my clinical judgment, the patient requires continued inpatient hospitalization for the following reasons: AIR placement authorization Quality Stroke Does the patient have a stroke diagnosis?: No VTE Prior VTE?: No VTE Risk Level:: Medical - moderate - high VTE Device Contraindication: Treatment Not Indicated VTE Drug Contraindication: N/A - Med Ordered
[2024-05-22] MEDS: Melatonin 3 MG TABLET 6 MG PO (21:00)
[2024-05-23] VITALS: BP 136/63; PULSE 62; RESP 18; TEMP 36.3; O2SAT 97
[2024-05-23 03:29] VITALS: BP 134/60; PULSE 67; TEMP 36.1; O2SAT 94
[2024-05-23 07:47] VITALS: BP 147/65; PULSE 60; RESP 18; TEMP 37.6; O2SAT 97
[2024-05-23] MEDS: amLODIPine Besylate 5 MG TABLET PO (09:02)
[2024-05-23] MEDS: Ezetimibe 10 MG TABLET PO (09:03)
[2024-05-23] MEDS: Enoxaparin Sodium 40 MG/0.4 ML SYRINGE SUBCUT (09:03)
[2024-05-23] MEDS: Aspirin 81 MG TAB.CHEW PO (09:03)
[2024-05-23 11:01] VITALS: BP 120/56; PULSE 64; RESP 16; TEMP 37; O2SAT 96
--- NOTE | 2024-05-23 12:37 | MHC.SL.SWA ---
Speech Pathologist Impression: No persisting dysphagia Risk of Aspiration Due to: Neurological Condition Dysphasia Diet Status: Liquid Consistency and Strategies for Safe Swallow: Liquid Intake Recommendation: Thin Liquid Intake Strategies: Small Sips Solid Food Consistency: Dietary Recommendations: Regular Additional Modifications to Solid Foods: Swallow WFL Oral Medication Intake: Whole with Liquid Please contact the pharmacy regarding appropriate crushable or liquid drug formulations that are available whenever modified delivery is recommended. Compensatory Strategies and Precautions to be Taken for Safe Swallow: Sitting Upright (90 deg) Small Bites and Sips Alternate Liquids/Solids Rate of Ingestion Change Supervision While Eating and Drinking for Safe Swallow: None Needed Foods to Avoid: Swallowing Recommended Treatments: Recommendation for Speech: Speech Therapy through Rehab Facility Comment: Recommend ST at Rehab facility for concerns related to cognition/memory and expressive aphasia. Pt seen for language treatment. Pt sitting upright in chair, alert and conversant. Pt spouse present during treatment, noted pt speech remains mildly slurred in comparison to his baseline. 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 Pt endorses emotional lability, reporting that this has occurred more in past few months, but with increased episodes lately. Pt said he was getting 'auras', and spouse clarified that pt had hx of migraines. Press of speech moderately pronounced. Speech characteristics generally WNK for articulation, prosodic features, grammatical forms, phrase length and word finding. Mild to moderate auditory comprehension difficulties observed, but with PMH of R sided HL, visual cues are necessary to reduce pt fatigue and improve accuracy in processing verbal/auditory information. Education provided to pt and spouse on characteristics of aphasia s/p CVA. POC reviewed. Pt and spouse in agreement. Recc continued skilled ST to address cognition, memory, attention and overall functional communication. [ End ] Frequency/Duration: Date Range for Service Req: Timeline to reassess: Spool Worker Clinican/Clinical Fellow: No Supervisory Statement: I have reviewed and agree with the student/clinical fellow's documentation: N/A Speech Language Pathologist: Erum Jason M.S., CCC-SKATE HOP
--- NOTE | 2024-05-23 12:57 | PM.DS ---
DS: Providers Provider Date of Service: 05/23/24 Date of admission: 05/18/24 09:42 Date of discharge: 05/23/24 Primary care physician: Sami Najera MD Consults: 05/17/24 20:00 Consult to Neurology Routine Consulting Provider: [facility] Reason for consultation: slurred speech DS: Diagnosis Discharge Diagnosis (1) Acute stroke due to ischemia: Status: Acute DS: Summary Hospital Course Hospital Course: From the history and physical by the admitting hospitalist, lFo Dc MD, 05/17/24: 73M PMH diabetes no longer on medications, morbid obesity with recent weight loss in the last few years due to dental issues, migraines, spinal stenosis with chronic left lower extremity weakness, hyperlipidemia presented with altered mental status. History taken from patient and . Symptoms began about 2 days prior to presentation. Noted to have some expressive aphasia, slow/slurred speech, memory loss, episodes of confusion. Specifically mentioned episode of not remembering code to sign into phone. Patient reports feeling unwell, tired, no specific symptom. No chest pain, fever, chills, shortness of breath, focal neurological deficit. In ED CTA head and neck without acute stroke. Noted to be hypertensive. ammonia mildly elevated at 64 with normal lfts, unclear significance, will start lactulose and check abd us 73yo M with hx DM2 though A1c only 5.3 now, obesity, migraines, HLD, and spinal stenosis presented after episode of aphasia and confusion and ultimately found to have acute pontine CVA. Hospital course by problem: acute ischemic CVA - Neuro consulted - Per pt, ASA in past only caused bruising so started ASA [was listed as allergy in record] and so far tolerating well - Intolerant of atorvastatin + rosuvastatin in past; started ezetimibe given elevated LDL - PT/OT/PRINCIPAL RESEARCH ECONOMIST consulted, and acute inpatient rehabilitation recommended. - No arrhythmias on telemetry - TTE 05/18/24: - The left ventricular systolic function is normal. The calculated ejection fraction is 63% by biplane method. - There is moderate aortic valve stenosis. - Factor V Leiden sent given significant family history; f/u results as outpt. hx DM2 - Resolved after weight loss. A1c only 5.3. HTN - Started amlodipine after 24-48h of permissive hypertension. hyperammonemia - Unclear cause; no evidence of liver disease on US; d/c'ed lactulose; repeat ammonia normal. dilated CBD - LFTs normal; per Radiology normal diameter for age; does not need further workup He was discharged to [facility] for AIR. Time Attestation Discharge Coordination Time (in mins): 35 Quality: Safe Use of Opioids Does Pt have an Active Cancer Diagnosis on the Problem List?: No Quality: Stroke Does the patient have a stroke diagnosis?: Yes Reason for No Anti-thrombotic at DC: N/A - Med Ordered Reason for No Anticoagulant at DC: Drug treatment not indicated Reason Not Initiating IV-Tpa: N/A - Med Ordered Reason for No Anti-thrombotic by Day Two: N/A - Med Ordered Reason for No Statin at DC: Drug declined by patient Physical Exam Vital Signs: Vital Signs: Last Vital Signs Temp 98.6 F 05/23/24 11:01 Pulse 64 05/23/24 11:01 Resp 16 05/23/24 11:01 BP 120/56 L 05/23/24 11:01 Pulse Ox 96 05/23/24 11:01 O2 Del Method Room Air 05/23/24 11:01 BMI result Body Mass Index 32.0 Const: Other: Awake alert no acute distress Resp: Other: Clear to auscultation bilaterally no rales rhonchi or wheezes Cardio: Other: No S4; positive S1-S2; no S3 murmurs rubs or gallops GI: Other: Soft nontender nondistended normoactive bowel sounds Neuro: Other: He's alert, oriented x3. His speech and language functions are normal. There is no dysarthria. No visual field cut. He has a pronation and flexion drift of the left upper extremity with left upper extremity weakness 4+/5. Left lower extremity 5 minus/5, hyperreflexia on the left side with an extensor plantar response. Extrem: Other: No edema bilaterally Discharge Plan Discharge Anticipated Discharge Date/Time: 05/23/24 12:55 Patient Disposition: Xfer Inpatient Rehab Fac Discharge Diagnosis: stroke, hyperlipidemia, hypertension Referrals: [facility] [Outside] - 1 Week Sami Najera MD [Primary Care Provider] - 1 Week Discharge Medications: New amlodipine 5 mg Tablet 5 mg PO DAILY Qty: 30 0RF Protocol: Hold for SBP< HOLD for SBP < : 90 aspirin 81 mg Tablet,Chewable 81 mg PO DAILY Qty: 30 0RF ezetimibe 10 mg Tablet 10 mg PO DAILY Qty: 30 0RF Continued melatonin 10 mg Tablet 10 mg PO BEDTIME PRN (Reason: Sleep) Discharge Orders: Discharge Order (Routine); Ordered 05/23/24 Ordered By: Geronimo Rhodes Diet: Low salt diet Activity on Discharge: As tolerated Stand Alone Forms: Patient Portal Discharge page Print Language: Vincentian Care Plan Goals: stroke recovery and prevention Health Concerns: stroke, hyperlipidemia, hypertension Plan of Treatment: aspirin 81 mg daily ezetimibe 10 mg daily amlodipine 5 mg daily low-sodium Mediterranean diet transfer to [facility] for acute inpatient rehab Please follow up with your primary care doctor within 1 week of discharge form [facility]. Return to the hospital if you experience recurrent or worsening symptoms. Assessment: See Discharge Summary.
--- NOTE | 2024-05-23 13:21 | MHC.CM.PN ---
Second IMM given 05/23. Insurance auth obtained for pt to [facility], he will transport there via [facility].
[2024-05-26 21:03] LABS: Factor V Leiden NEGATIVE
== END 2024-05-23 16:25 | DRG 65 ==
LOC: HO.ED 17:39 → HO.EDOVER 20:06 → HO.IMC 05-18 14:38
PROVIDERS: Family Medicine; Physician Assistant Medical; Admitting Provider Internal Medicine; Emergency Provider Emergency Medicine; PCP Internal Medicine; Visit Provider Hospitalist
DX: I63.9 Cerebral infarction, unspecified (principal); E72.20 Disorder of urea cycle metabolism, unspecified; I10 Essential (primary) hypertension; R47.01 Aphasia; R29.702 NIHSS score 2; E78.5 Hyperlipidemia, unspecified
CPT/HCPCS: 36415; 70496; 70498; 70551; 71045; 76705; 80048; 80061; 80076; 80307; 81003; 82140; 82803; 82947; 83036; 84443; 84484; 85025; 85027; 85610; 85730; 87502; 87635; 92507; 92610; 93005; 93306; 97110; 97116; 97162; 97166; 97530; 99285; J1650; Q9957; Q9967

== ENCOUNTER → 2024-05-17 14:49 | Outpatient (BNV) | payer MEDICARE, SELFPAY | PROVIDERS: Admitting Provider Internal Medicine; Emergency Provider Emergency Medicine; PCP Internal Medicine; Visit Provider Internal Medicine | DX: R94.31 Abnormal electrocardiogram [ECG] [EKG] (principal) | CPT/HCPCS: 93010 ==

== ENCOUNTER → 2024-05-17 15:00 | Outpatient (BNV) | payer MEDICARE, SELFPAY | PROVIDERS: Emergency Provider Emergency Medicine; PCP Internal Medicine; Visit Provider Radiology Diagnostic Radiology | DX: I67.2 Cerebral atherosclerosis (principal); I65.22 Occlusion and stenosis of left carotid artery; R05.9 Cough, unspecified | CPT/HCPCS: 70496; 70498; 71045 ==

== ENCOUNTER → 2024-05-17 20:00 | Outpatient (BNV) | payer MEDICARE, SELFPAY | PROVIDERS: Admitting Provider Internal Medicine; Emergency Provider Emergency Medicine; PCP Internal Medicine; Visit Provider Internal Medicine | DX: I63.9 Cerebral infarction, unspecified (principal) | CPT/HCPCS: 99232 ==

== ENCOUNTER → 2024-05-18 07:52 | Outpatient (BNV) | payer MEDICARE, SELFPAY | PROVIDERS: Admitting Provider Internal Medicine; Emergency Provider Emergency Medicine; PCP Internal Medicine; Visit Provider Radiology Diagnostic Radiology | DX: I61.3 Nontraumatic intracerebral hemorrhage in brain stem (principal); K83.09 Other cholangitis | CPT/HCPCS: 70551; 76705 ==

== ENCOUNTER → 2024-05-18 09:42 | Outpatient (BNV) | payer MEDICARE, SELFPAY | PROVIDERS: Admitting Provider Internal Medicine; Emergency Provider Emergency Medicine; PCP Internal Medicine; Visit Provider Psychiatry & Neurology Neurology | DX: G45.9 Transient cerebral ischemic attack, unspecified (principal) | CPT/HCPCS: 99222 ==

== ENCOUNTER 2024-06-21 13:43 | Outpatient (AMB) | payer MEDICARE, SELFPAY ==
--- NOTE | 2024-06-21 13:46 | A.OFFPC_ITS ---
Vital Signs 06/21/24 13:47 Height 5 ft 6 in Weight 197 lb 8.547 oz BMI 31.9 BP 120/80 Blood Pressure Location Rt brachial Position Sitting Temp 96.9 F Temp Source Temporal Artery Scan Intake Visit Reasons: [facility] 06/15 Intake Note: Patient is here for hospital discharge follow up. Patient was discharged from [facility] on 05/23/24, [facility] on 06/15/24. Housing Inspectors Required: No Lead C Developer: Present Accompanied by: Spouse Allergies acetaminophen [Tylenol] Allergy (Unknown, Verified 06/21/24 13:55) rash aspirin Allergy (Unknown, Verified 06/21/24 13:55) bruising atorvastatin Allergy (Unknown, Verified 06/21/24 13:55) muscle aches, forgetfulness glipizide Allergy (Unknown, Verified 06/21/24 13:55) anxiety melatonin Adverse Reaction (Intermediate, Verified 06/21/24 13:55) Nightmare rosuvastatin Adverse Reaction (Intermediate, Verified 06/21/24 13:55) Anxiety Medication List - Last Reconciled 06/22/24 by Sami Najera MD amlodipine 5 mg See Protocol PO DAILY aspirin 81 mg PO DAILY ciprofloxacin HCl (Cipro) 250 mg PO BID docusate sodium 100 mg PO BID ezetimibe 10 mg PO DAILY nystatin 1 appl topical BID polyethylene glycol 3350 17 grams PO DAILY sennosides (senna) 17.2 mg PO BEDTIME Tobacco use date assessed: 06/21/24 Fall risk assessment: No Falls in past year Last assessed Fall Risk: 06/21/24 Dental Screening Dental Screen Date: 04/25/24 HPI [facility] 06/15 HPI Details had a cva with left hemiparesis; improving with PT and OT PFSH Medical History Osteoporosis Migraine Anxiety Obesity Screening for colon cancer Screening for prostate cancer Screening for diabetes mellitus Hyperlipidemia Surgical History History of amputation of finger of right hand History of colonoscopy History of tooth extraction History of cholecystectomy History of surgery on arm History of repair of rotator cuff Family History Father CVD (cardiovascular disease) Mother Stroke Diabetes Brother Coronary artery sclerosis Social History (Updated 06/21/24 @ 13:55 by YENNI Rees) Household Members: Spouse Housing: Other Housing Other:: [facility] Do you presently have visiting nurse or other home services: No Alcohol intake: never Patient Tobacco Use Status: Former Tobacco user Tobacco use type: Pipe e-Cigarette/Vaping Use: Never Used Second Hand Smoke Exposure: Yes service: Yes Current occupational 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 Cognitive needs: Yes (wheelchair, cane) Hearing needs: Yes Vision needs: Yes (glasses) Questionnaire Thrive Questionnaire Date Thrive assessed: 05/18/24 AUDIT C Alcohol Use Questionnaire (AUDIT-C) 2. How many drinks containing alcohol do you have on a typical day when you are drinking?: 1 or 2 3. How often do you have six or more drinks on one occasion?: Never Total Score: 0 SERGEY-7 AMB Questionnaire SERGEY-7 Date SERGEY - 7 assessed: 04/25/24 Source: Developed by Drs. Dawson Stout, Christen Guzman, James Pean and colleagues, with an educational fariba from [employer]. Review of Systems Const Denies chills, Denies headache(s) and Denies weight loss ENT Denies headache(s) Card Denies chest pain, Denies syncope, Denies irregular heart rhythm and Denies dyspnea Resp Denies chest congestion, Denies cough and Denies dyspnea GI Denies abdominal pain, Denies change in stool character, Denies nausea and Denies vomiting Musc Denies deformity and Denies joint swelling Neuro Denies syncope and Denies headache(s) Physical exam (Primary Care) Vital Signs: Last Vital Signs Temp 96.9 F 06/21/24 13:47 BP 120/80 06/21/24 13:47 BMI result Body Mass Index 31.9 Tobacco/Smoking Status: Tobacco use Status Tobacco use date assessed 06/21/24 06/21/24 13:57 Patient Tobacco Use Status Former Tobacco user 06/21/24 13:57 Tobacco use type Pipe 06/21/24 13:57 e-Cigarette/Vaping Use Never Used 06/21/24 13:57 Thrive Assessment: Date of Thrive Assessment Date Thrive assessed 05/18/24 06/21/24 13:57 Const General: cooperative, comfortable, no acute distress and alert Neck Neck: Yes no lymphadenopathy Thyroid: Thyroid normal Resp Effort & Inspection: normal respiratory effort Auscultation: clear to auscultation bilaterally Percussion: percussion normal Cardio Jugular venous distension: no JVD Palpation: normal PMI Rate: regular rate Rhythm: regular rhythm Heart sounds: S1 normal heart sound present and S2 normal heart sound present GI Inspection: Yes normal to inspection Palpation (GI): No hepatosplenomegaly present Skin General skin exam: no rashes or lesions noted Extrem General: Yes no clubbing, cyanosis or edema Coding Level of Care Code Est Pt Level 3 (09643) Diagnoses Acute stroke due to ischemia I63.9 Assessment & Plan Assessment & Plan (1) Acute stroke due to ischemia: Code(s): I63.9 - Cerebral infarction, unspecified Category: Medical Plan: neuro f/u Orders: Referrals Neurology Referral I69.359 - Hemiplegia and hemiparesis following cerebral infarction affecting unspecified side Medications: New ciprofloxacin HCl (Cipro) 250 mg PO BID 10 tabs 0RF
[2024-06-21 13:47] VITALS: BP 120/80; TEMP 36.1; BMI 31.9
--- OUTSIDE RECORDS SUMMARY | 2024-06-21 17:19 | XMS_ITS | Encounter Summary ---
Author Organization [facility] [place] [address] Care Team Providers Care Mushroom Growing Supervisor Name Role Phone Sami Najera MD Primary Care Provider [phone] Encounter Details Date Type Department Care Team (Late st Contact Info) Description 05/25/2024 Plan of Care Documentation [facility] [address] [place] [phone] Social History Tobacco Use Types Packs/Day Years Used Date Smoking Tobacco: Every Day Pipe Passive Smoke Exposure: Past Comments:50 + years smoking pipe (Nicotine); denies need for Nicotine patch. Alcohol Use Standard Drinks/Week Comments Not Currently 0 (1 standard drink = 0.6 oz pur e alcohol) Health Literacy Answer Date Recorded How often do you need to hav e someone help you when you read instructions, pamphlets, or other written material from your doctor or pharmacy? Never 05/24/2024 Caregiver: How often do you need to have someone help you when you read instructions, pamphlets, or other written material from your doctor or pharmacy? Not on file 05/24/2024 Transportation Answer Date Recorded Has the lack of transportati on kept you from meetings, work, or from getting things needed for daily living? No Has the lack of transportati on kept you from medical appointments or from getting medications? No 05/24/2024 Social Isolation Answer Date Recorded How often do you feel lonely or isolated from th ose around you? Never 05/24/2024 Interpersonal Safety Answer Date Record ed Physical Abuse 05/23/2024 Verbal Abuse 05/23/2024 Sex and Gender Information Value Date Recorded Sex Assigned at Male 06/02/2024 3:18 PM EST Legal Sex Male 12:38 PM EST Gender Identity Male 05/23/2024 10:01 PM EST Sexual Orientation Lesbian or [place] 05/23/2024 10 :01 PM EST documented as of this encounter Progress Notes * Munira Carlos, OT - 05/25/2024 11:14 AM EST Physical Medicine and Rehabilitation Team Conference Interdisciplinary Team Meeting Patient Name: Bob Han Date of : 1950 Sex: Male Payor Info: Payor: [employer] MED[employer]ARE ADVANTAGE / Plan: [employer] MEDICARE ADVANTAGE / Product Type: *No Product type* / Admitting Diagnosis: CVA (cerebral vascular accident) ([facility]) [I63.9] Admit Date/Time: 05/23/2024 4:44 PM Primary Rehab (Etiologic) Diagnosis: Patient Active Problem List Diagnosis CVA (cerebral vascular accident) ([facility]) Team Discussion UPDATES: Physician: 73-year-old male with past medical history significant for hypertension, hyperlipidemia,obesity, migraines, anxiety, osteoporosis, who presented to the emergency department at [facility] for feeling unwell, migraine with aura, intermittent slurred speech, and memory loss. His last known well time was unclear. Patient's lab work in the emergency department unremarkable. CTAdoes not show any major arterial branch block occlusion. He was admitted to the medical team on 05/17. On 05/18/2024 patient had an MRI of the brain that showed acute nonhemorrhagic stroke/ischemia, right mid ruperto likely involving the inbound telemarketer ruperto arteries. With small vessel occlusive disease. He had transthoracic echo on 05/18 that showed the left ventricular systolic function is normal with a calculated ejection fraction is 63% by biplane method. Moderate aortic valve stenosis. He was seen byneurology who states he appeared to have had a right hemisphere stroke. Recommended PT/OT, aspirin and atorvastatin which patient reports he does not tolerate therefor he was given ezetimibe. During his time at [place] he had an elevated ammonia he had an ultrasound done of his abdomen that showed no liver disease. His ammonia normalized without intervention. Aspirin. A1C 5.3 RN: Alert, forgetful, emotional lability. HR reg, lungs clear. Dry cough. Haven't moved bowels here. Nystatin powder for groin. Spills urinal. Blood sugars stable. Scab on elbow that opened. Mepilex. OT: Barriers: decreased ROM/strength UE, good return. Decreased coordination, balance, decreased insight. Hyperverbal, redirection. Goals 3-4 weeks Mod I. PT: Max A transfers. Trialed ambulated Max A, wc follow. Kyphotic. Difficulty sequencing. Goals 3-4weeks Mod I. 17 stairs as a barrier. MEDICAL CASE WORKER: Mod deficits. MOCA. Planning, organization, planning, word finding. Oral phase deficits.IDDSI 6. Very tearful today. 3 weeks. SW: Met with him, no SI/self harm. No hx depression/anxiety. Reports prior issues 30 years ago. Very emotional today. He wants to be home with his spouse. Wants to be more [place]. Doesn't want to burdenPete. CM: Pt lives with his spouse Dionet in a two family house, 2nd floor apartment. [address] with left handrail. [address] floor apartment with left handrail. 1/2 bath on primary level. Bedroom andFull Bathroom on 3rd floor. 16 [address] with left handrail. Pt was independent with ADLS. No AD. Driving. Pt and Peter share IADLS. Pt was not on any medications prior. Pt has one son Jaun in [place]. Dionte will be primary support on discharge. Pt is retired, pt worked for the [employer]. Pt was active prior, walking daily. Pt denied ETOH, SA or cigarettes. Pt does smoke a pipe of tobacco daily. Denied a history of anxiety/depression. Update 05/27 Expected Discharge Date: 06/15/24 Risk Adjusted Scores: OT Current: 15 OT Goal: 32 (17) PT Current: 26 PT Goal: 64 (38) Follow-up Services: Day Rehab physical therapy, occupational therapy, and speech therapy daily Equipment Needed: other TBD Barriers to Achieving Rehab Goals: cognition Occupational Therapy Assessment Overall Cognitive Status Overall Cognitive Status: Within Functional Limits Precautions Precautions Medical Precautions: Fall Risk Safety Interventions: Call [place] within reach, ID band on, Chair alarm RUE Weight Bearing Status: Full LUE Weight Bearing Status: Full RLE Weight Bearing Status: Full LLE Weight Bearing Status: Full ADL Assessment Eating Assistance Needed: Supervision Physical Assistance Level: No physical assistance CARE Score - Eatin Oral Hygiene Assistance Needed: Supervision Physical Assistance Level: No physical assistance CARE Score - Oral Hygiene: 4 Toileting Hygiene Assistance Needed: Physical assistance Physical Assistance Level: Total assistance CARE Score - Toileting Hygiene: 1 Shower/Bathe Self Assistance Needed: Physical assistance Physical Assistance Level: 76% or more CARE Score - Shower/Bathe Self: 2 Upper Body Dressing Assistance Needed: Physical assistance Physical Assistance Level: 51%-75% CARE Score - Upper Body Dressin Lower Body Dressing Assistance Needed: Physical assistance Physical Assistance Level: Total assistance CARE Score - Lower Body Dressin Putting On/Taking Off Footwear Assistance Needed: Physical assistance Physical Assistance Level: Total assistance CARE Score - Putting On/Taking Off Footwear: 1 Functional Transfers Toilet Transfer Assistance Needed: Physical assistance Physical Assistance Level: 51%-75% CARE Score - Toilet Transfer: 2 OT Assessment Results: OT Assessment Results: Decreased ADL status, Decreased upper extremity range of motion, Decreased upper extremity strength, Decreased endurance, Decreased fine motor control, Decreased functional mobility, Decreased IADLs, Decreased gross motor control, Non-functional left upper extremity Evaluation/Treatment Tolerance: Evaluation/Treatment Tolerance: Patient tolerated treatment well Comments: Plan Treatment/Interventions: Treatment Interventions: ADL retraining, Functional transfer training, UE strengthening/ROM, Endurance training, Patient/family training, Equipment evaluation/education, Neuromuscular reeducation, Fine motor coordination activities, Compensatory technique education OT Plan: OT Plan: Skilled OT Discharge Recommendations: Equipment Recommended: Equipment Recommended: (TBD) Barriers to Discharge: Physical Therapy Assessment Bed Mobility Roll Left and Right Assistance Needed: Physical assistance Physical Assistance Level: 25% or less CARE Score - Roll Left and Right: 3 Sit to Lying Assistance Needed: Physical assistance Physical Assistance Level: 26%-50% CARE Score - Sit to Lyin Lying to Sitting on Side of Bed Assistance Needed: Physical assistance Physical Assistance Level: 76% or more CARE Score - Lying to Sitting on Side of Bed: 2 Transfers Sit to Stand Assistance Needed: Physical assistance Physical Assistance Level: 76% or more CARE Score - Sit to Stand: 2 Chair/Fqo-td-Gckut Transfer Assistance Needed: Physical assistance Physical Assistance Level: 51%-75% CARE Score - Chair/Rjl-gf-Csxgw Transfer: 2 Car Transfer Reason if not Attempted: Environmental limitations CARE Score - Car Transfer: 10 Picking Up Object Assistance Needed: Physical assistance Physical Assistance Level: 51%-75% Comment: berry planter, used berry planter to brain picker objects prior to admission CARE Score - Picking Up Object: 2 Wheelchair Wheel 50 Feet with Two Turns Assistance Needed: Physical assistance Physical Assistance Level: 76% or more CARE Score - Wheel 50 Feet with Two Turns: 2 Wheel 150 Feet Assistance Needed: Physical assistance Physical Assistance Level: 76% or more CARE Score - Wheel 150 Feet: 2 Ambulation Walk 10 Feet Assistance Needed: Physical assistance Physical Assistance Level: Total assistance Comment: max-A x1 LBQC and WC follow CARE Score - Walk 10 Feet: 1 Walk 50 Feet with Two Turns Reason if not Attempted: Safety concerns CARE Score - Walk 50 Feet with Two Turns: 88 Walk 150 Feet Reason if not Attempted: Safety concerns CARE Score - Walk 150 Feet: 88 Walking 10 Feet on Uneven Surfaces Comment: impaired balance. Reason if not Attempted: Safety concerns CARE Score - Walking 10 Feet on Uneven Surfaces: 88 Stairs/Curb step 1 Step (Curb) Assistance Needed: Physical assistance Physical Assistance Level: 76% or more CARE Score - 1 Step (Curb): 2 4 Steps Assistance Needed: Physical assistance Physical Assistance Level: 76% or more CARE Score - 4 Steps: 2 12 Steps Reason if not Attempted: Safety concerns CARE Score - 12 Steps: 88 Precautions Precautions Medical Precautions: Fall Risk Safety Interventions: Call h[place] within reach, ID band on, Chair alarm RUE Weight Bearing Status: Full LUE Weight Bearing Status: Full RLE Weight Bearing Status: Full LLE Weight Bearing Status: Full PT Assessment Results: Evaluation/Treatment Tolerance: Comments: Plan Treatment/Interventions: Treatment/Interventions: Functional transfer training, LE strengthening/ROM, Endurance training, Cognitive reorientation, Bed mobility, Gait training, Balance training, Continued evaluation, Compensatory technique education PT Plan: PT Plan: Skilled PT Discharge Recommendations: PT Discharge Recommendations: Other (Comment) (TBD) Equipment Recommended: Barriers to Discharge: Nurse's Assessment Fall Risk Assessment Last Known Fall: No falls Mobility: Immobilized/requires assist of one person Toileting Needs: Use of assistive device (Bedside commode, bedpan, urinal) Mental Status/LOC/Awareness: Awake, alert, and oriented to date, place, and person Communication/Sensory: Visual (Glasses)/hearing deficit Behavior: Appropriate behavior Medications: Cardiovascular or central nervous system meds Volume/Electrolyte Status: No problems Shanta Rodriguez Fall Risk Total: 9 Skin Assessment Sensory Perceptions: Slightly limited Moisture: Rarely moist Activity: Walks occasionally Mobility: Slightly limited Nutrition: Adequate Friction and Shear: Potential problem Alan Scale Score: 18 Pain Assessment Pain Assessment: 0-10 Pain Score: 5 - Moderate pain Pain Location: (low back) Bowel Management Bowel Program/Regime: Last BM Date: 05/22/24 Bladder Management Bladder Scan Protocol: Bladder Continence Status: Continent void Toileting Speech Language Pathologist's Assessment Oral/Motor/Speech Labial ROM: Within Functional Limits Labial Symmetry: Within Functional Limits Labial Strength: Reduced (Pt demonstrating drooling ? x2. Adequate labial seal otherwise with drinking.) Lingual Appearance: [place] Lingual ROM: Within Functional Limits Lingual Symmetry: Within Functional Limits Velum: Within Functional Limits Mandible: Impaired (weakness) Facial Symmetry: Within Functional Limits Vocal Quality: Exceptions to WFL (Pt reports vocal quality is reflective of baseline.) Intelligibility: Intelligible 100% Breath Support: Adequate for speech Dentition: Dentures top, Other (Comment) (natural bottom dentition) Hearing: Exceptions to WFL Hearing Exceptions: Hard of hearing/hearing concerns, No hearing aid Cognition Overall Cognitive Status: Impaired Cognitive Status Comments: MOCA 8.1 Arousal/Alertness: Appropriate responses to stimuli Orientation Level: (oriented x3) Following Commands: Follows one step commands without difficulty Awareness of Errors: Good awareness of errors made (Pt aware of baseline deficits.) Attention: Moderate Memory: Moderate Memory Comments: Pt reports baseline STM deficits. Dysphagia Risk Factors: Stroke symptoms Dysphagia Comments: Pt reports significant other cuts food up into small pieces at baseline d/t dentition. Dysarthria Dysarthria : No MEDICAL CASE WORKER Assessment Results: Cognitive impairments, Expression deficits, Swallowing impairments (Swallowing impairmentsare baseline d/t dentition.) Prognosis: Fair Barriers to Discharge: Evaluation/Treatment Tolerance: Patient tolerated treatment well Plan Treatment/Interventions: Cognitive linguistic functioning MEDICAL CASE WORKER Plan: Skilled MEDICAL CASE WORKER Discharge Recommendations: Diet Recommendations: IDDSI 6/0 Barriers to Discharge: Fiscal Accountant's Assessment Adult diet [facility]; Cardiac, Modified Consistency Options for Liquids and Solids, Diabetic; IDDSI Level 6 Soft & Bite Sized; 60 gm carb/Meal; Sodium 2 gm Restriction Physician Attestation: Wen Pritchard DO, have led the team conference and agree with the results, findings, and decisions made by the interdisciplinary team. documented in this encounter Plan of Treatment Upcoming Encounters Date Type Department Care Team (Late st Contact Info) Description 06/22/2024 12:45 PM EST Evaluation [facility] [address] [phone] Dawson Small, PT 06/27/2024 11:00 AM EDT Treatment [facility] [address] [phone] Teresa Garner, PT 06/29/2024 12:30 PM EDT Treatment [facility] [address] [place] [phone] Dakota Acosta, OT 07/04/2024 2:00 PM EDT Treatment [address] [phone] Randall Roe, PARTS COUNTER CLERK 07/06/2024 10:45 AM EDT Evaluation [facility] [address] [place] [phone] Rose Montez, MEDICAL CASE WORKER 07/08/2024 11:00 AM EDT Treatment [address] [phone] Randall Roe, PARTS COUNTER CLERK 07/11/2024 10:30 AM EDT Treatment [facility] [address] [place] [phone] Alma Delia Lopes COTA 07/13/2024 10:45 AM EDT Treatment [facility] [address] [place] [phone] Rose Montez, MEDICAL CASE WORKER 07/15/2024 11:45 AM EDT Treatment [address] [phone] Randall Roe, PARTS COUNTER CLERK 07/15/2024 12:30 PM EDT Treatment [facility] [address] [phone] Keiko Munoz COTA/Daysi 07/18/2024 9:30 AM EDT [facility] [address] [phone] Randall Roe, PARTS COUNTER CLERK 07/18/2024 10:15 AM EDT Treatment [facility] [address] [phone] Alma Delia Lopes, DIAZ 07/21/2024 10:45 AM EDT Treatment [facility] [address] [place] [phone] Rose Montez, MEDICAL CASE WORKER 07/21/2024 11:15 AM EDT Treatment [facility] [address] [place] [phone] Alma Delia Lopes, DIAZ 07/27/2024 12:45 PM EDT Treatment [facility] [address] [place] [phone] Rose Montez, MEDICAL CASE WORKER 08/03/2024 10:45 AM EDT Treatment [facility] [address] [place] [phone] Rose Montez, MEDICAL CASE WORKER 08/10/2024 11:30 AM EDT Treatment [facility] [address] [place] [phone] Rose Montez, MEDICAL CASE WORKER documented as of this encounter Visit Diagnoses Not on filedocumented in this encounter Additional Health Concerns Assessment Noted Time PHQ-9 Depression Total Score: 0 05/24/19 11:08 AM EST documented as of this encounter Care Teams Mushroom Growing Supervisor Relationship Specialty Start Date End Date Sami Najera MD [address] [place] [phone] PCP - General Internal Medicine 05/19/24 documented as of this encounter
--- OUTSIDE RECORDS SUMMARY | 2024-06-21 17:19 | XMS_ITS | Encounter Summary ---
Author Organization [facility] [place] [address] Care Team Providers Care Explosive Specialist Name Role Phone Sami Najera MD Primary Care Provider [phone] Encounter Details Date Type Department Care Team (Late st Contact Info) Description 05/31/2024 Plan of Care Documentation [facility] [address] [place] [phone] Social History Tobacco Use Types Packs/Day [...] as of this encounter Progress Notes * Kristy Dillard, OTR/L - 06/01/2024 11:10 AM EST Physical Medicine and Rehabilitation Team Conference Interdisciplinary Team Meeting Patient Name: Bob Han Date of : 1950 Sex: Male Payor Info: Payor: [employer] MED[employer]ARE [employer]VANTAGE / Plan: [employer] MED[employer]ARE [employer]VANTAGE / Product Type: *No Product type* / Admitting Diagnosis: CVA (cerebral vascular accident) ([facility]) [I63.9] Admit Date/Time: 05/23/2024 4:44 PM Primary Rehab (Etiologic) Diagnosis: Patient Active Problem List Diagnosis CVA (cerebral vascular accident) ([facility]) Team Discussion UPDATES: Physician: new antibiotic - improving urine output RN: manuel BM - holding meds. Cont of urine improving. Skin improving. Vitals WFL. OT: making progress. Motor apraxia for UE. Spouse in for training PT: w/c level for d/c. May need 2 w/c. MECHANICAL SYSTEM TECHNICIAN: mod A with cognition. Cough with pills - will be assessed. SW: less depressed. Following CM: update due today. RD: Nutrition Interventions: - Continue IDDSI 6 soft and bite sized diet per MECHANICAL SYSTEM TECHNICIAN recommendations. Continue 2 gm Na restriction given recent CVA. Consider liberalizing carbohydrate restriction given well controlled POCs/BG (pagedprovider) -Monitor adequacy of PO intake; consider offering snacks/supplements if pt consuming <65% of meals on follow up. -Follow weights, labs, I/O. - Follow up regarding nutrition history/ need for nutrition education Expected Discharge Date: 06/15/2024 Risk Adjusted Scores: OT Current: 20 OT Goal: 31 PT Current: 30 PT Goal: 62 Follow-up Services: Day rehab follow up at [facility] Outpatient Equipment Needed: TBD Barriers to Achieving Rehab Goals: Occupational Therapy Assessment Overall Cognitive Status Overall Cognitive Status: Within Functional Limits Precautions Precautions Medical Precautions: Fall Risk Safety Interventions: Call [place] within reach, ID band on, Chair alarm RUE Weight Bearing Status: Full LUE Weight Bearing Status: Full RLE Weight Bearing Status: Full LLE Weight Bearing Status: Full ADL Assessment Eating Assistance Needed: Set-up / clean-up Physical Assistance Level: No physical assistance CARE Score - Eatin Oral Hygiene Assistance Needed: Set-up / clean-up Physical Assistance Level: No physical assistance CARE Score - Oral Hygiene: 5 Toileting Hygiene Assistance Needed: Physical assistance Physical Assistance Level: 51%-75% CARE Score - Toileting Hygiene: 2 Shower/Bathe Self Assistance Needed: Physical assistance Physical Assistance Level: 26%-50% CARE Score - Shower/Bathe Self: 3 Upper Body Dressing Assistance Needed: Physical assistance Physical Assistance Level: 51%-75% CARE Score - Upper Body Dressin Lower Body Dressing Assistance Needed: Physical assistance Physical Assistance Level: 76% or more CARE Score - Lower Body Dressin Putting On/Taking Off Footwear Assistance Needed: Physical assistance Physical Assistance Level: Total assistance CARE Score - Putting On/Taking Off Footwear: 1 Functional Transfers Toilet Transfer Assistance Needed: Physical assistance Physical Assistance Level: 76% or more CARE Score - Toilet Transfer: 2 OT Assessment Results: OT Assessment Results: Decreased ADL status, Decreased upper extremity range of motion, Decreased upper extremity strength, Decreased endurance, Decreased fine motor control, Decreased functional mobility, Decreased gross motor control, Decreased IADLs, Non-functional left upper extremity Evaluation/Treatment Tolerance: Evaluation/Treatment Tolerance: Patient tolerated treatment well Comments: Plan Treatment/Interventions: Treatment Interventions: ADL retraining, Functional transfer training, UE strengthening/ROM, Endurance training, Patient/family training, Equipment evaluation/education, Neuromuscular reeducation, Fine motor coordination activities, Compensatory technique education OT Plan: OT Plan: Skilled OT Discharge Recommendations: Equipment Recommended: Equipment Recommended: (TBD prior to d/c) Barriers to Discharge: Physical Therapy Assessment Bed [...] Level: 25% or less CARE Score - Sit to Stand: 3 Chair/Meb-yc-Usfbr Transfer Assistance Needed: Physical assistance Physical Assistance Level: 25% or less CARE Score - Chair/Nhk-vm-Gzydh Transfer: 3 Car Transfer Reason if not Attempted: Environmental limitations CARE Score - Car Transfer: 10 Picking Up Object Assistance Needed: Physical assistance Physical Assistance Level: 51%-75% 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 CARE Score - Picking Up Object: 2 Wheelchair Wheel 50 Feet with Two Turns Assistance Needed: Physical assistance Physical Assistance Level: 76% or more CARE Score - Wheel 50 Feet with Two Turns: 2 Type of Wheelchair/Scooter: Manual Wheel 150 Feet Assistance Needed: Physical assistance Physical Assistance Level: 76% or more CARE Score - Wheel 150 Feet: 2 Type of Wheelchair/Scooter: Manual Ambulation Walk 10 Feet Assistance Needed: Physical [...] Physical Assistance Level: 26%-50% CARE Score - 1 Step (Curb): 3 4 Steps Assistance Needed: Physical assistance Physical Assistance Level: 26%-50% CARE Score - 4 Steps: 3 12 Steps Reason if not Attempted: Safety concerns CARE Score - 12 Steps: 88 Precautions Precautions Medical Precautions: Fall Risk Safety Interventions: Call [place] within reach, ID band on, Chair alarm RUE Weight Bearing Status: Full LUE Weight Bearing Status: Full RLE Weight Bearing Status: Full LLE Weight Bearing Status: Full PT Assessment Results: Evaluation/Treatment Tolerance: Evaluation/Treatment Tolerance: Patient tolerated treatment well Comments: Comments: Pt with good tolerance to treatment session. needing continued practice with ambulation with LBQC and stair completion to increase independnece. quickly fatiguing during session. Will continue to benefit from skilled physical therapy. Plan Treatment/Interventions: Treatment/Interventions: Functional transfer training, LE [...] system meds Volume/Electrolyte Status: No problems Shanta Michael Fall Risk Total: 9 Skin Assessment Sensory Perceptions: Slightly limited Moisture: Very moist Activity: Chairfast Mobility: Slightly limited Nutrition: Adequate Friction and Shear: Potential problem Alan Scale Score: 15 Pain Assessment Pain Assessment: No/denies pain Pain Score: 0 - No pain Pain Location: (low back) Bowel Management Bowel Program/Regime: Bowel Continence Status: Continent movement Last BM Date: 05/31/24 Bladder Management Bladder Scan Protocol: Bladder Continence Status: Continent void Toileting Speech Language Pathologist's Assessment Swallow Diet Recommendations: IDDSI 6/0 Diet Solids Recommendation: IDDSI Level 6 Soft and Bite Sized Diet Liquids Recommendation: Thin liquids Cognition Organization: Planning/organization tasks: 15 steps to brush teeth: mod verbal cues required. Pt tasked with organizing 6 tasks into schedule given time limit and time for each task: mod to max A required. Required frequent redirections, Pt often stating routine at home. Discussed Pt's typical routine for the day and what he plans the night before: Pt stating there will be changes to his routine after stroke, unable to identify specifics. Discussed how physical limitations and cognitive limitations will impact. Recommended Pt create a daily schedule every morning to compensate for memory and organization deficits. Sequencing: Pt was able to complete sequencing task w/ pictures w/ 71% accuracy indep. and 86% accuracy given mod A for organization Memory: Pt tasked with encoding therapy schedule for today: set up for writing strategy, min A for repetition/rehearsal. Immediate recall: 5/8 components recalled indp, increasing accuracy with mod verbal cues. After ~5 min delay: 4/8 components recalled given min verbal cues. Attention/Concentration: Pt was able to answer questions related to reading a map w/ 50% accuracy indep., 80% given min A for visually scanning, pt often not scanning the R side of the map, and 100% given mod A for navigation. Pt engaged in a conversation about walking and safety after his stroke. Reasoning: Pt was able to answer hypothetical questions related to safety w/ 60% accuracy indep. and 80% accuracy given min A for eleboration of appropriate responses and 90% accuracy given mod A forappropriate solutions Other Cognitive Skills Activity: With this sports writer, discussed memory strategies to use for functional task (walking trails): Pt receptive to using visualization strategy and idenitfying landmarks. Discussed changes post stroke related to hunting, Pt expressing interest in returning to hunting after d/c. Pt generated 3 changes given mod verbal cues: reduced UE stregnth, impaired general awareness and slow processing/confusion. Cognitive Skills Comments: Pt continues to present w/ tangential speech and benefited from verbal cues to focus. Speech Language Verbal Expression: Pt was able to provide synonyms and antonyms for target word w/ 62% accuracy indep/ and 87% accuracy given mod A for following the directions and sentence completion. MECHANICAL SYSTEM TECHNICIAN Assessment Results: Cognitive impairments Prognosis: Fair Barriers to Discharge: Evaluation/Treatment Tolerance: Patient tolerated treatment well Plan Treatment/Interventions: Cognitive linguistic functioning MECHANICAL SYSTEM TECHNICIAN Plan: Skilled MECHANICAL SYSTEM TECHNICIAN Discharge Recommendations: Home MECHANICAL SYSTEM TECHNICIAN Diet Recommendations: IDDSI 6/0 Barriers to Discharge: Physician Attestation: IWen DO, have led the team conference and agree with the results, findings, and decisions made by the interdisciplinary team. documented in this encounter Plan of Treatment Upcoming Encounters Date Type Department Care Team (Late st Contact Info) Description 06/22/2024 12:45 PM EST Evaluation [facility] [address] [phone] Dawson Small, PT 06/27/2024 11:00 AM EDT Treatment [facility] [address] [phone] Teresa Garner, PT 06/29/2024 12:30 PM EDT Treatment [facility] Occupational [facility] [address] [place] [phone] Dakota Acosta, OT 07/04/2024 2:00 PM EDT Treatment [facility] [address] [phone] Randall Roe, PUBLIC HEALTH NURSE 07/06/2024 10:45 AM EDT Evaluation [facility] [address] [phone] Rose Montez, MECHANICAL SYSTEM TECHNICIAN 07/08/2024 11:00 AM EDT Treatment [facility] [address] [phone] Randall Roe, PUBLIC HEALTH NURSE 07/11/2024 10:30 AM EDT Treatment [facility] [address] [phone] Alma Delia Lopes, DIAZ 07/13/2024 10:45 AM EDT Treatment [facility] [address] [phone] Rose Montez, MECHANICAL SYSTEM TECHNICIAN 07/15/2024 11:45 AM EDT Treatment [facility] [address] [phone] Randall Roe, PUBLIC HEALTH NURSE 07/15/2024 12:30 PM EDT Treatment [facility] [address] [phone] Keiko Munoz COTA/Daysi 07/18/2024 9:30 AM EDT Treatment [facility] [address] [phone] Randall Roe, PUBLIC HEALTH NURSE 07/18/2024 10:15 AM EDT Treatment [facility] [address] [phone] Alma Delia Lopes, DIAZ 07/21/2024 10:45 AM EDT Treatment [facility] [address] [phone] Rose Montez, MECHANICAL SYSTEM TECHNICIAN 07/21/2024 11:15 AM EDT Treatment [facility] [address] [phone] Alma Delia Lopes COTA 07/27/2024 12:45 PM EDT Treatment [facility] [address] [phone] Rose Montez, MECHANICAL SYSTEM TECHNICIAN 08/03/2024 10:45 AM EDT Treatment [facility] [address] [phone] Rose Montez, MECHANICAL SYSTEM TECHNICIAN 08/10/2024 11:30 AM EDT Treatment [facility] [address] [phone] Rose Montez, MECHANICAL SYSTEM TECHNICIAN documented as of this encounter Visit Diagnoses Not on filedocumented in this encounter Additional Health Concerns Assessment Noted Time PHQ-9 Depression Total Score: 0 05/24/19 11:08 AM EST documented as of this encounter Care Teams Explosive Specialist Relationship Specialty Start Date End Date Sami Najera MD [address] [place] [address] Drive [address] [place] [phone] PCP - General Internal Medicine 05/19/24 documented as of this encounter
--- OUTSIDE RECORDS SUMMARY | 2024-06-21 17:20 | XMS_ITS | Encounter Summary ---
Author Organization [facility] Address [address] [place] [address] Care Team Providers Care Estimator Name Role Phone Sami Najera MD Primary Care Provider [phone] Reason for Visit * Consultation (Routine) - Authorized Specialty Diagnoses / Procedures Referred By Contac t Referred To Contact Occupational Therapy Diagnoses Cerebrovascular accident (CVA), unspecified mechanism (CMS/HCC) Wen Calles, DO [address] [place] [address] Phone: tel: fax: Referral ID Status Reason Start Date Expiration Date Visits Requested Visits Authorized [id number] Authorized Specialty Services Required 05/25/2024 05/25/2025 25 25 Encounter Details Date Type Department Care Team (Latest Contact Info) Description 06/20/2024 12:00 PM EST [facility] Occupational Therapy [address] [place] [phone] Dakota Jiang, OT Cerebrovascular accident (CVA), unspecified mechanism (CMS/HCC) Social History Tobacco Use Types Packs/Day Years [...] material from your doctor or pharmacy? Never 06/14/2024 Caregiver: How often do you need to have someone help you when you read instructions, pamphlets, or other written material from your doctor or pharmacy? Not on file 06/14/2024 Transportation Answer Date Recorded Has the lack of transportati on kept you from meetings, work, or from getting things needed for daily living? No Has the lack of transportati on kept you from medical appointments or from getting medications? No 05/24/2024 Social Isolation Answer Date Recorded How often do you feel lonely or isolated from those around you? Sometimes 06/14/2024 Interpersonal Safety Answer Date Record ed Physical Abuse 05/23/2024 Verbal Abuse 05/23/2024 Sex and Gender Information Value Date Recorded Sex Assigned at Male 06/02/2024 3:18 PM EST Legal Sex Male 12:38 PM EST Gender Identity Male 05/23/2024 10:01 PM EST Sexual Orientation Lesbian or [place] 05/23/2024 10 :01 PM EST documented as of this encounter Progress Notes * Dakota Jiang, OT - 06/20/2024 12:00 PM EST Images from the original note were not included. [facility] - Outpatient OCCUPATIONAL THERAPY EVALUATION Date: 06/20/2024 Visit Number: 1 Patient Name: Bob Han : 1950 Age: 74 y.o. Gender: male Diagnosis: ICD-10-CM ICD-9-CM 1. 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 has no past surgical history on file. is allergic to acetaminophen, atorvastatin, glipizide, and rosuvastatin. Precautions: None specified Is the patient at Risk for Falls: Yes, Assist Patient to and from waiting room, Assist Patient to bathroom, and Assistive devices available to patient Concurrent Services: Occupational Therapy, Physical Therapy, and Speech/Language Pathology History of Present Illness: Pt presented to the emergency department at [facility] , feeling unwell, migraine with aura, intermittent slurred speech, and memory loss. 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 With small vessel occlusive disease. He had transthoracicecho on 05/18 that showed the left ventricular systolic function is normal with a calculated ejection fraction is 63% by biplane method. Moderate aortic valve stenosis. Pt transferred to [facility] 05/23/24- 06/15/24 for intense rehab including OT/PT/ADULT CARE PROVIDER. SUBJECTIVE Current Functional Limitations: Reported by Patient and spouse Unable to reach L UE to head to washhair, assist with shower, tub transfer Pain: No pain Home Environment: Lives with in 3 story home. Apartment on 1st floor, pt and spouse reside on 2nd and 3rd floors 3 DAWN with L rail 18 steps to 2nd floor with L rail 16 additional steps to 3rd floor with L rail Tub/shower combo Prior Level of Function: Fullt I with ADLs. 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 OBJECTIVE General Observations/Comments: Pt arrived in , spouse pushing WC Cognition: Able to follow 1-2 step directions for OT eval Required cues to stay on topic, tangential at times Required repetition of directions for box and blocks Dominant Hand: R Manager Licensing Right 62 pounds Left 13 pounds Pinch R lateral pinch 15 L lateral pinch 3 R 3 jaw tom pinch 13 L 3 jaw tom pinch 3 R tip pinch 12 L tip pinch 2 OT Shoulder ROM: Right Left AROM PROM SHOULDER AROM PROM WFL WFL Flexion 55 100 WFL WFL Extension 40 45 WFL WFL Abduction 60 100 WFL WFL Internal Rotation TO STOMACH wfl WFL WFL External Rotation -20 20 OT Elbow/forearm ROM Right Left AROM PROM ELBOW/ FOREARM AROM PROM WNL WNL Flexion 40-125 20-145 WNL WNL Pronation WFL WFL WNL WNL Supination 10 60 OT Wrist ROM Right Left AROM PROM WRIST AROM PROM WNL WNL Extension WNL WNL Flexion WNL WNL Ulnar Deviation WNL WNL Radial Deviation OT Digit ROM R hand able to make a fist Able to oppose digits 2,3 Strength RIGHT LEFT COMMENTS SHOULDER Flexion 5/5: Normal 2+/5: Poor Plus Extension 5/5: Normal 3-/5: Fair Minus Abduction 5/5: Normal 2+/5: Poor Plus External Rotation 5/5: Normal 2+/5: Poor Plus Internal Rotation 5/5: Normal 3-/5: Fair Minus ELBOW/ FOREARM Extension 5/5: Normal 3-/5: Fair Minus Flexion 5/5: Normal 3-/5: Fair Minus Pronation 5/5: Normal 3-/5: Fair Minus Supination 5/5: Normal 2+/5: Poor Plus WRIST Extension 5/5: Normal 2+/5: Poor Plus Flexion 5/5: Normal 2+/5: Poor Plus 5/5: Normal - Full ROM and tolerates maximum resistance 4/5: Good - Full ROM and tolerates moderate resistance 4-/5: Good Minus - Full ROM and tolerates less than moderate resistance Breaks with resistance 3+/5: Fair Plus - Full ROM and tolerates minimal resistance Breaks with resistance 3/5: Fair - Full ROM against gravity and tolerates no resistance 3-/5: Fair Minus - < Full ROM against gravity 2+/5: Poor Plus - <50% ROM against gravity OR full ROM gravity eliminated with minimal resistance 2/5: Poor - Full ROM gravity eliminated and tolerates no resistance 2-/5: Poor Minus - < full ROM gravity eliminated 1/5: Trace 0/5: No muscle activation ADLs: Set-up grooming Set-up feeding - assist to cut food Set-up dressing MOD A bathing MOD A tub transfer Total A IADLs 9 Hole PEG Test 9 Hole Peg Test (seconds) Right - 9 Hole Peg Test (seconds): 47 seconds Left - 3 in in 60 sec Box and Blocks Dominant Hand Which is your dominant hand?: Right Box and Blocks Test Number of Blocks Transported in 1 Minute by Dominant Hand: 28 Number of Blocks Transported in 1 Minute by Non- Dominant Hand: 3 Vision Wears bifocals Has not seen eye MD in 10 years With glasses distant acuity 20/40 Scanning, visual merlos, convergence, depth perception Intact Recommend eye MD appt Pain Reassessment: no pain in B UE ASSESSMENT Bob Han is a 74 y.o. male presenting for outpatient occupational therapy with complaints of decreased AROM, strength in L UE, impaired ADLs, IADLs. Significant clinical findings include: decreased AROM, decreased strength, decreased GMC, decreased FMC, impaired fx'l use L UE, impired ADLs, impaired IADls. Skilled Occupational therapy is medically necessary to improve fx'l use L UE, increase I with Adls/IADLs. Rehabilitation Potential: Rehab Potential: Condition Has Potential to Improve Learning Needs: Were Patient Learning needs assessed Yes Learning Needs: Plan of Care and Rehabilitation Techniques and Procedures Learning Preferences: Demonstration Barriers to Learning: Hearing Deficits Patient Education: [x] Discussed, with patient and/or caregiver, the importance of therapy and appointment compliance in order to achieve goals in a timely manner. Education provided: Role of OT, POC Education Provided To: Patient and Spouse / Significant Other utilizing Explanation mode(s) of education Response to Education: Verbal Understanding GOALS Goals Addressed None PLAN POC Development/Review: Initial Evaluation; Participants: Patient and Spouse / Significant Other Skilled Therapy Plan Required: YES- Reasons for Rehab and Medical Necessity -- Reduce Need for Assist with Functional Activity/ADL's/Mobility and Function in Community Planned Therapy Interventions: Therapeutic Activity (51402), Therapeutic Exercise (00051), Self-Care (96702), and Neuromuscular Re-education (25147) Planned Therapy Duration: 24 visits BILLING (This Date of Service) TOTAL TREATMENT TIME: 60 Minutes Evaluation High Complexity Justification ::: A history of present problem with 3 or more personal factors and/or co-morbidities that impact the plan of care and An examination of body systems using standardized tests and measures addressing a total of 4 or more elements from any of the following: body structures and functions, activity limitations, and/or participation restrictions Documentation completed by Dakota Jiang OT [facility] OCCUPATIONAL THERAPY [address] [place] [phone] Dept: [phone] Dept PATIENT NAME: Bob Han : 1950 Certification: This is to certify that the above named patient, who is under my care, requires skilled Therapy services as described in the above treatment plan. I further certify that the services outlined in this plan are skilled and medically necessary. I have reviewed this plan for rehabilitation services, and I recommend that these services continue to meet the above stated goals and plan. SIGNATURE: DATE Wen Calles DO Referring provider documented in this encounter Plan of Treatment Upcoming Encounters Date Type Department Care Team (Late st Contact Info) Description 06/22/2024 12:45 PM EST Evaluation [facility] [address] [phone] Dawson Small, PT 06/27/2024 11:00 AM EDT Treatment [address] [phone] Teresa Garner, PT 06/29/2024 12:30 PM EDT Treatment [facility] Occupational Therapy [address] [phone] Dakota Jiang, OT 07/04/2024 2:00 PM EDT Treatment [facility] [address] [phone] Randall Roe, SALES ACTIVITY MANAGER 07/06/2024 10:45 AM EDT Evaluation [facility] Speech Therapy [address] [phone] Rose Montez, ADULT CARE PROVIDER 07/08/2024 11:00 AM EDT Treatment [facility] [address] [phone] Randall Roe, SALES ACTIVITY MANAGER 07/11/2024 10:30 AM EDT Treatment [facility] Occupational Therapy [address] [phone] Alma Delia Lopes, DIAZ 07/13/2024 10:45 AM EDT [facility] [address] [phone] Rose Montez, ADULT CARE PROVIDER 07/15/2024 11:45 AM EDT Treatment [facility] [address] [phone] Randall Roe, SALES ACTIVITY MANAGER 07/15/2024 12:30 PM EDT Treatment [facility] Occupational [facility] [address] [phone] Keiko Munoz, DIAZ/L 07/18/2024 9:30 AM EDT Treatment [facility] [address] [phone] Randall Roe, SALES ACTIVITY MANAGER 07/18/2024 10:15 AM EDT Treatment [facility] Occupational Therapy [address] [phone] Alma Delia Lopes, DIAZ 07/21/2024 10:45 AM EDT Treatment [facility] Speech Therapy [address] [place] [phone] Rose Montez, ADULT CARE PROVIDER 07/21/2024 11:15 AM EDT Treatment [facility] Occupational Therapy [address] [place] [phone] Alma Delia Lopes, DIAZ 07/27/2024 12:45 PM EDT Treatment [facility] Speech Therapy [address] [phone] Rose Montez, ADULT CARE PROVIDER 08/03/2024 10:45 AM EDT Treatment [facility] Speech Therapy [address] [phone] Rose Montez, ADULT CARE PROVIDER 08/10/2024 11:30 AM EDT Treatment [facility] Speech Therapy [address] [phone] Melida, Rose B, ADULT CARE PROVIDER documented as of this encounter Goals Goal Patient Goal Type Associated Problems Recent Progress Patient-Stated? Author Pt goals General Yes Dakota Jiang, OT Note: To have a reasonable level of mobility (pt was walking 2-[address] [facility] SALES ACTIVITY MANAGER) Improved strength in L hand Be able to reach up to wash hair OT STG 6-8 visits General Yes Dakota Jiang, OT Note: Pt will demo improved AROM in L UE by 10* for increased ease of donning a shirt Patient will demo L UE strength improved by 1/2 muscle grade to be able to bath with min A, Patient will demo L gravity meter observer strength >= 16# to be able to hold a washcloth for bathing, Patient will demo improved FMC as evidenced by ability to perform L 9 hole peg test Patient will demo improved GMC as evidenced by L box and blocks score >= 7 to be able to use L UE to hold a fork for cutting food with R hand Patient will perform initial HEP MOD I Pt will participate in L UE neuro re-ed to be able to use L UE as a gross assist for ADLs OT LTG 24 visits General No Dakota Jiang, OT Note: Patient will demo L UE AROM WFL for basic ADLs, Patient will demo L UE strength WFL for basic ADLs, Patient will demo L gravity meter observer strength >= 25 to be able to hold tools for antique repair, Patient will demo L lateral pinch strength >= 8 to be able to hold an item with L hand, while repairing item with R hand, Patient will demo improved GMC as evidenced by L box and blocks score >= 25 to be able to perform basic ADls, and Patient will perform HEP MOD I documented as of this encounter Visit Diagnoses Diagnosis Cerebrovascular accident (CVA), unspecified mechanism (CMS/HCC) documented in this encounter Orders Outpatient Referral Count Last Ordered Date Fir st Ordered Date AMB REFERRAL TO OCCUPATIONAL THERAPY 1 06/2024 documented in this encounter Additional Health Concerns Assessment Noted Time PHQ-9 Depression Total Score: 0 06/14/19 25 2:38 PM EST documented as of this encounter Care Teams Estimator Relationship Specialty Start Date End Date Sami Najera MD [address] [place] [address] PCP - General Internal Medicine 05/19/24 documented as of this encounter
--- OUTSIDE RECORDS SUMMARY | 2024-06-21 17:20 | XMS_ITS | Clinical Summary ---
Author Organization [facility] Address [address] [place] [address] Phone Care Team Providers Care Pantograph Transferrer Name Role Phone Sami Najera MD Primary Care Provider [phone] Allergies Active Allergy Reactions Criticality Noted Date Comments Acetaminophen Rash 05/23/2024 Atorvastatin Muscular Issues 05/23/2024 Glipizide Anxiety 05/23/2024 Rosuvastatin Anxiety 05/23/2024 Medications amLODIPine (NORVASC) 5 mg tabletIndicati ons:hypertensi on Take 1 tablet (5 mg total) by mouth 1 (one) time each day. 30 each 06/15/19 25 025 Active aspirin 81 mg chewable tabletIndicati ons:myocardial infarction prevention Chew 1 tablet (81 mg total) 1 (one) time each day. 30 each 06/14/19 25 025 Active ezetimibe (ZETIA) 10 mg tablet Take 1 tablet (10 mg total) by mouth 1 (one) time each day. 30 each 06/14/19 25 025 Active docusate sodium (COLACE) 100 mg capsule Take 1 capsule (100 mg total) by mouth 2 (two) times a day. 60 each 06/14/19 25 025 Active nystatin (MYCOSTATIN) 100,000 unit/gram powder Apply topically 2 (two) times a day for 10 days. 15 g 06/14/19 25 025 Active polyethylene glycol (MIRALAX) 17 gram packet Take 17 g by mouth 1 (one) time each day. 510 g 06/15/19 025 Active senna (SENOKOT) 8.6 mg tablet Take 2 tablets (17.2 mg total) by mouth at bedtime for 9 doses. 06/15/19 025 Active amLODIPine (NORVASC) 5 mg tabletIndicati ons:hypertensi on Take 1 tablet (5 mg total) by mouth 1 (one) time each day. Due in AM 05/24/19 25 025 Discontinued(St op Taking at Discharge) aspirin 81 mg chewable tablet Chew 1 tablet (81 mg total) 1 (one) time each day. 05/24/19 025 Discontinued ezetimibe (ZETIA) 10 mg tablet Take 1 tablet (10 mg total) by mouth 1 (one) time each day. 05/24/19 025 Discontinued melatonin 3 mg tablet Take 10 mg by mouth at bedtime as needed for sleep. Med rec reads 10 mg at HS PRN 05/23/19 025 Discontinued(St op Taking at Discharge) senna (SENOKOT) 8.6 mg tablet Take 2 tablets (17.2 mg total) by mouth at bedtime. 60 each 06/14/19 025 Discontinued(St op Taking at Discharge) Active Problems Problem Noted Date Diagnosed Date CVA (cerebral vascular accident) 05/23/2024 Encounters Date Type Department Care Team Description 06/20/2024 12:00 PM EST Evaluation [facility] Occupational Therapy [address] [phone] Dakota Acosta OT Cerebrovascular accident (CVA), unspecified mechanism ([facility]) 06/20/2024 Plan of Care Documentation [facility] Occupational Therapy [address] [phone] 06/08/2024 Plan of Care Documentation [facility] Inpatient [facility] [address] [place] [address] 05/31/2024 Plan of Care Documentation [facility] [address] [place] [address] 05/25/2024 Plan of Care Documentation [facility] [address] [place] [address] 05/23/2024 4:44 PM EST - 06/15/2024 11:25 AM EST Hospital Encounter [facility] [address] [place] [address] Wen Calles DO Cerebrovascular accident (CVA), unspecified mechanism (CMS/HCC) (Primary Dx) Discharge Disposition: Home or Self Care from Last 3 Months Medical History Medical History Date Comments HLD (hyperlipidemia) HTN (hypertension) Spinal stenosis Migraines Social History Tobacco Use Types Packs/Day Years Used Date Smoking Tobacco: Every Day Pipe Passive Smoke Exposure: Past Tobacco Cessation:Ready to Q uit: Yes; Counseling Given: No Comments:50 + years smoking pipe (Nicotine); denies [...] or Murillo 05/23/2024 10 :01 PM EST Obstetrics History Last Filed Vital Signs Vital Sign Reading Time Taken Comments Blood Pressure 124/52 06/15/2024 8:01 AM EST Pulse 64 06/15/2024 8:01 AM EST Temperature 36.5 ??C (97.7 ??F) 06/15/2024 8:01 AM ES T Respiratory Rate 18 06/15/2024 8:01 AM EST Oxygen Saturation 95% 06/15/2024 8:01 AM EST Inhaled Oxygen Concentration - - Weight 90 kg (198 lb 6.6 oz) 05/20/2024 11:45 AM EST Height 168 cm (5' 6.14 ) 05/20/2024 11:45 AM EST Body Mass Index 31.89 05/20/2024 11:45 AM EST Plan of Treatment Upcoming Encounters Date Type Department Care Team (Late st Contact Info) Description 06/22/2024 12:45 PM EST Evaluation [facility] [address] [phone] Dawson Small, PT 06/27/2024 11:00 AM EDT Treatment [facility] [address] [phone] Teresa Garner, PT 06/29/2024 12:30 PM EDT Treatment [facility] Occupational Therapy [address] [phone] Dakota Acosta, OT 07/04/2024 2:00 PM EDT Treatment [facility] [address] [address] Randall Roe, DENTAL LABORATORY ASSISTANT 07/06/2024 10:45 AM EDT Evaluation [facility] Speech Therapy [address] [phone] Rose Montez, FORGING PRESS OPERATOR 07/08/2024 11:00 AM EDT Treatment [facility] [address] [phone] Randall Roe, DENTAL LABORATORY ASSISTANT 07/11/2024 10:30 AM EDT Treatment [facility]ational Therapy [address] [address] Alma Delia Lopes COTA 07/13/2024 10:45 AM EDT Treatment [facility] [address] [phone] Rose Montez, FORGING PRESS OPERATOR 07/15/2024 11:45 AM EDT [facility] [address] [phone] Randall Roe, DENTAL LABORATORY ASSISTANT 07/15/2024 12:30 PM EDT Treatment [facility] Occup[facility] [address] [phone] Keiko Munoz, DIAZ/L 07/18/2024 9:30 AM EDT Treatment [facility] [address] [address] Randall Roe, DENTAL LABORATORY ASSISTANT 07/18/2024 10:15 AM EDT Treatment [facility] [address] [place] [phone] Alma Delia Lopes, DIAZ 07/21/2024 10:45 AM EDT Treatment [facility] Speech Therapy [address] [place] [phone] Rose Montez, FORGING PRESS OPERATOR 07/21/2024 11:15 AM EDT Treatment [facility] Occupational Therapy [address] [place] [phone] Alma Delia Lopes, DIAZ 07/27/2024 12:45 PM EDT Treatment [facility] Speech Therapy [address] [place] [phone] Rose Montez, FORGING PRESS OPERATOR 08/03/2024 10:45 AM EDT Treatment [facility] Speech Therapy [address] [phone] Rose Montez, FORGING PRESS OPERATOR 08/10/2024 11:30 AM EDT Treatment [facility] Speech Therapy [address] [place] [phone] Rose Montez, FORGING PRESS OPERATOR Health Maintenance Due Date Last Done Comments Diabetes: Annual Foot Exam 1961 Diabetes: Annual Retina Eye Exam 1961 Zoster Vaccines (1 of 2) 2001 Pneumococcal Vaccine: 50+ Years (2 of 2 - PCV) 05/24/2020 05/24/2019 COVID-19 Vaccine (4 - season) 2023 07/12/2021, 08/29/2020, 08/01/2020 Influenza Vaccine (#1) 2023 , 02/24/2020, 02/19/2020, Additional history exists Abdominal Aortic Aneurysm (AAA) Screen 05/19/2024 Cholesterol Screening (Lipid Panel) 05/19/2024 Colorectal Cancer Screening: Colonoscopy 05/19/2024 Hepatitis C Screening 05/19/2024 Medicare Annual Wellness Visit 05/19/2024 Diabetes: Annual Urine Albumin-Creatinine Ratio (uACR) 06/01/2024 Diabetes: Blood Sugar Control Test (HGBA1C) 06/01/2024 Diabetes: Annual GFR (Glomerular Filtration Rate) 06/07/2025 06/07/2024, 06/01/2024, 05/29/2024, Additional history exists Hypertension/CHF/CAD Annual BMP Blood Test 06/07/2025 06/07/2024, 06/01/2024, 05/29/2024, Additional history exists Depression Screening 06/14/2025 06/14/2024 Social Influencers of Health Screening 06/14/2025 06/14/2024 Falls Risk Assessment 06/15/2025 06/15/2024 RSV Immunization Patients 60+ Years Old (1 - 1-dose 75+ series) 2026 DTaP,Tdap,and Td Vaccines (3 - Td or Tdap) 12/29/2028 12/29/2018, 07/12/2018 HIB Vaccines Aged Out No longer eligi ble based on patient's age to complete this topic HPV Vaccines Aged Out No longer eligi ble based on patient's age to complete this topic Hepatitis A Vaccines Aged Out No long er eligible based on patient's age to complete this topic Hepatitis B Vaccines Aged Out No long er eligible based on patient's age to complete this topic IPV Vaccines Aged Out No longer eligi ble based on patient's age to complete this topic MMR Vaccines Aged Out No longer eligi ble based on patient's age to complete this topic Meningococcal ACWY Vaccine Aged Out N o longer eligible based on patient's age to complete this topic Meningococcal B Vacine Aged Out No lo nger eligible based on patient's age to complete this topic RSV Immunization Patients Under 20 months Aged Out No longer eligible based on patient's age to complete this topic Varicella Vaccines Aged Out No longer eligible based on patient's age to complete this topic Goals Goal Patient Goal Type Associated Problems Recent Progress Patient-Stated? 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 OT STG 6-8 visits General Yes Dakota Acosta, OT Note: Pt will demo improved AROM in L UE by 10* for increased ease of donning a shirt Patient will demo L UE strength improved by 1/2 muscle grade to be able to bath with min A, Patient will demo L warehouse associate driver strength >= 16# to be able to [...] OT LTG 24 visits General No Dakota Acosta, OT Note: Patient will demo L UE AROM WFL for basic ADLs, Patient will demo L UE strength WFL for basic ADLs, Patient will demo L warehouse associate driver strength >= 25 to be able to [...] and Patient will perform HEP MOD I Procedures Procedure Name Priority Date/Time Associated Diagnosis Comments COMPREHENSIVE METABOLIC PANEL Routine 06/07/2024 5:45 AM EST COMPLETE BLOOD COUNT Routine 06/07/2024 5:45 AM EST COMPLETE BLOOD COUNT Routine 06/01/2024 5:20 AM EST COMPREHENSIVE METABOLIC PANEL Routine 06/01/2024 5:20 AM EST LAVENDER - EDTA Routine 05/29/2024 5:59 AM EST SST - GOLD Routine 05/29/2024 5:59 AM EST EXTRA TUBES Routine 05/29/2024 5:59 AM EST BASIC METABOLIC PANEL Routine 05/29/2024 5:56 AM EST COMPLETE BLOOD COUNT Routine 05/29/2024 5:56 AM EST ABDALLA URINE CULTURE TUBE Routine 05/27/2024 3:03 PM EST URINALYSIS WITH REFLEX MICROSCOPIC AND CULTURE Routine 05/27/2024 3:03 PM EST URINALYSIS WITH REFLEX MICROSCOPIC AND CULTURE Routine 05/27/2024 3:03 PM EST CULTURE URINE Routine 05/27/2024 3:03 PM EST POCT GLUCOSE BLOOD Routine 05/27/2024 7: 12 AM EST POCT GLUCOSE BLOOD Routine 2024 7: 57 PM EST POCT GLUCOSE BLOOD Routine 2024 4: 28 PM EST POCT GLUCOSE BLOOD Routine 2024 11 :09 AM EST POCT GLUCOSE BLOOD Routine 2024 7: 17 AM EST POCT GLUCOSE BLOOD Routine 05/25/2024 8: 07 PM EST POCT GLUCOSE BLOOD Routine 05/25/2024 3: 49 PM EST POCT GLUCOSE BLOOD Routine 05/25/2024 11 :25 AM EST POCT GLUCOSE BLOOD Routine 05/25/2024 7: 22 AM EST POCT GLUCOSE BLOOD Routine 05/24/2024 7: 49 PM EST POCT GLUCOSE BLOOD Routine 05/24/2024 4: 16 PM EST CBC WITH AUTO DIFFERENTIAL Routine 05/24/2024 6:38 AM EST COMPREHENSIVE METABOLIC PANEL Routine 05/24/2024 6:38 AM EST CBC AND DIFFERENTIAL Routine 05/24/2024 6:38 AM EST from Last 3 Months Results * (ABNORMAL) Complete blood count (06/07/2024 5:45 AM EST) Only the most recent of3 resultswithin the time period is included. [facility] WBC 7.9 4.8 - 10.8 K/mcL LAB HEMETOLOGY METHOD 06/07/2024 6:34 AM [facility] RBC 4.70 4.50 - 5.50 M/mcL LAB HEMETOLOGY METHOD 06/07/2024 6:34 AM [facility] Hemoglobin 13.6 13.5 - 17.5 g/dL LAB HEMETOLOGY METHOD 06/07/2024 6:34 AM [facility] Hematocrit 41.2(L) 42.0 - 54.0 % LAB HEMETOLOGY METHOD 06/07/2024 6:34 AM [facility] MCV 87.5 79.0 - 98.0 FL LAB HEMETOLOGY METHOD 06/07/2024 6:34 AM [facility] MCH 28.9 27.0 - 32.0 pcg LAB HEMETOLOGY METHOD 06/07/2024 6:34 AM EST [facility] MCHC 33.0 32.0 - 37.0 g/dL LAB HEMETOLOGY METHOD 06/07/2024 6:34 AM EST [facility] RDW 12.8 11.0 - 15.0 % LAB HEMETOLOGY METHOD 06/07/2024 6:34 AM EST [facility] Platelets 384 130 - 400 K/mcL LAB HEMETOLOGY METHOD 06/07/2024 6:34 AM EST [facility] MPV 8.5 7.0 - 11.0 FL LAB HEMETOLOGY METHOD 06/07/2024 6:34 AM EST [facility] NRBC 0.0 <1.0 % LAB HEMETOLOGY METHOD 06/07/2024 6:34 AM EST [facility] NRBC Absolute 0.00 <0.10 K/mcL LAB HEMETOLOGY METHOD 06/07/2024 6:34 AM [facility] Blood Venous blood specimen / Unknown Venipuncture / Unknown 06/07/2024 5:45 AM EST 06/07/2024 6:26 AM EST Malena Soto NP LAB BLOOD ORDERABLES Final Result [facility] [address] [place] [address], * (ABNORMAL) Comprehensive metabolic panel (06/07/2024 5:45 AM EST) Only the most recent of3 resultswithin the time period is included. Sodium 134 133 - 145 mmol/L LAB CHEMISTRY METHOD 06/07/2024 7:10 AM EST [facility] Potassium 4.4 3.5 - 5.5 mmol/L LAB CHEMISTRY METHOD 06/07/2024 7:10 AM [facility] Chloride 104 96 - 110 mmol/L LAB CHEMISTRY METHOD 06/07/2024 7:10 AM [facility] CO2 28 21 - 32 mmol/L LAB CHEMISTRY METHOD 06/07/2024 7:10 AM [facility] Anion Gap 2(L) 3 - 11 LAB CHEMISTRY METHOD 06/07/2024 7:10 AM [facility] Glucose 89 70 - 100 mg/dL LAB CHEMISTRY METHOD 06/07/2024 7:10 AM [facility] BUN 20 5 - 25 mg/dL LAB CHEMISTRY METHOD 06/07/2024 7:10 AM [facility] Creatinine 0.78 0.70 - 1.30 mg/dL LAB CHEMISTRY METHOD 06/07/2024 7:10 AM [facility] eGFR 94 >=60 mL/min/1. 73m2 LAB CHEMISTRY METHOD 06/07/2024 7:10 AM [facility] Comment:Calculation based on the??Chronic Kidney Disease Epidemiology Collaboration (CKD-EPI) equation refit??without adjustment for race. BUN/Creatinine Ratio 25.6 LAB CHEMISTRY METHOD 06/07/2024 7:10 AM [facility] Calcium 9.4 8.5 - 10.5 mg/dL LAB CHEMISTRY METHOD 06/07/2024 7:10 AM [facility] AST (SGOT) 33 10 - 42 unit/L LAB CHEMISTRY METHOD 06/07/2024 7:10 AM [facility] ALT (SGPT) 51 10 - 60 unit/L LAB CHEMISTRY METHOD 06/07/2024 7:10 AM [facility] Alkaline Phosphatase 114 42 - 121 unit/L LAB CHEMISTRY METHOD 06/07/2024 7:10 AM [facility] Total Protein 6.8 6.0 - 8.0 g/dL LAB CHEMISTRY METHOD 06/07/2024 7:10 AM EST [facility] Albumin 2.9(L) 3.2 - 5.0 g/dL LAB CHEMISTRY METHOD 06/07/2024 7:10 AM EST [facility] Total Bilirubin 0.5 0.0 - 1.4 mg/dL LAB CHEMISTRY METHOD 06/07/2024 7:10 AM EST [facility] Blood Venous blood specimen / Unknown Venipuncture / Unknown 06/07/2024 5:45 AM EST 06/07/2024 6:23 AM EST Malena Soto NP LAB BLOOD ORDERABLES Final Result Performing Organization Address City/[facility]/ZIP Co de Phone Number [facility] [address] [place] [address], [place] [phone] * SST tube (05/29/2024 5:59 AM EST) Extra Tube Hold for add-ons. 05/29/2024 8:01 AM EST [facility] Comment:Auto resulted. Blood Venous blood specimen / Unknown 05/29/2024 5:59 AM EST 05/29/2024 6:14 AM EST Wen Calles DO LAB BLOOD ORDERABLES Tanisha l Result [facility] [address] [place] [address], [place] [phone] * Lavender tube (05/29/2024 5:59 AM EST) Extra Tube Hold for add-ons. 05/29/2024 8:01 AM EST [facility] Comment:Auto resulted. Blood Venous blood specimen / Unknown 05/29/2024 5:59 AM EST 05/29/2024 6:14 AM EST us Wen Calles DO LAB BLOOD ORDERABLES Tanisha l Result [facility] [address] [place] [address], * (ABNORMAL) Basic metabolic panel (05/29/2024 5:56 AM EST) Sodium 131(L) 133 - 145 mmol/L LAB CHEMISTRY METHOD 05/29/2024 6:44 AM [facility] Potassium 4.0 3.5 - 5.5 mmol/L LAB CHEMISTRY METHOD 05/29/2024 6:44 AM [facility] Chloride 99 96 - 110 mmol/L LAB CHEMISTRY METHOD 05/29/2024 6:44 AM [facility] CO2 27 21 - 32 mmol/L LAB CHEMISTRY METHOD 05/29/2024 6:44 AM [facility] Anion Gap 5 3 - 11 LAB CHEMISTRY METHOD 05/29/2024 6:44 AM [facility] Glucose 96 70 - 100 mg/dL LAB CHEMISTRY METHOD 05/29/2024 6:44 AM [facility] BUN 26(H) 5 - 25 mg/dL LAB CHEMISTRY METHOD 05/29/2024 6:44 AM [facility] Creatinine 0.80 0.70 - 1.30 mg/dL LAB CHEMISTRY METHOD 05/29/2024 6:44 AM [facility] eGFR 93 >=60 mL/min/1. 73m2 LAB CHEMISTRY METHOD 05/29/2024 6:44 AM [facility] Comment:Calculation based on the??Chronic Kidney Disease Epidemiology Collaboration (CKD-EPI) equation refit??without adjustment for race. BUN/Creatinine Ratio 32.5 LAB CHEMISTRY METHOD 05/29/2024 6:44 AM [facility] Calcium 9.0 8.5 - 10.5 mg/dL LAB CHEMISTRY METHOD 05/29/2024 6:44 AM [facility] Blood Venous blood specimen / Unknown Venipuncture / Unknown 05/29/2024 5:56 AM EST 05/29/2024 6:13 AM EST Malena Soto NP LAB BLOOD ORDERABLES Final Result [facility] [address] [place] [address], [place] [phone] * (ABNORMAL) Urinalysis with reflex microscopic and culture (05/27/2024 3:03 PM EST) Specific [place] Urine 1.023 1.003 - 1.030 LAB URINALYSIS - AUTOMATED METHOD 05/27/2024 3:48 PM [facility] pH, Urine 5.5 5.0 - 8.0 pH LAB URINALYSIS - AUTOMATED METHOD 05/27/2024 3:48 PM [facility] Leukocytes, Urine Small(A) Negative LAB URINALYSIS - AUTOMATED METHOD 05/27/2024 3:48 PM [facility] Nitrite, Urine Positive(A) Negative LAB URINALYSIS - AUTOMATED METHOD 05/27/2024 3:48 PM [facility] Protein, Urine Trace <=Trace mg/dL LAB URINALYSIS - AUTOMATED METHOD 05/27/2024 3:48 PM [facility] Glucose, Urine Negative Negative mg/dL LAB URINALYSIS - AUTOMATED METHOD 05/27/2024 3:48 PM [facility] Ketones, Urine Trace(A) Negative mg/dL LAB URINALYSIS - AUTOMATED METHOD 05/27/2024 3:48 PM [facility] Urobilinogen , Urine 1.0 0.2 - 1.0 mg/dL LAB URINALYSIS - AUTOMATED METHOD 05/27/2024 3:48 PM [facility] Bilirubin, Urine Negative Negative LAB URINALYSIS - AUTOMATED METHOD 05/27/2024 3:48 PM [facility] Blood, Urine Moderate(A) Negative LAB URINALYSIS - AUTOMATED METHOD 05/27/2024 3:48 PM [facility] RBC, Urine 3.2 0 - 4 /HPF LAB URINALYSIS - AUTOMATED METHOD 05/27/2024 3:48 PM [facility] WBC, Urine 27.2(H) 0 - 4 /HPF LAB URINALYSIS - AUTOMATED METHOD 05/27/2024 3:48 PM [facility] Squamous Epithelial, Urine 6 0 - 60 /LPF LAB URINALYSIS - AUTOMATED METHOD 05/27/2024 3:48 PM [facility] Bacteria, Urine Many(A) Negative /HPF LAB URINALYSIS - AUTOMATED METHOD 05/27/2024 3:48 PM [facility] Hyaline Casts, Urine 2.4 0 - 3 /LPF LAB URINALYSIS - AUTOMATED METHOD 05/27/2024 3:48 PM [facility] Urine Urine specimen obtained by clean catch procedure / Unknown Non-blood Collection / Unknown 05/27/2024 3:03 PM EST 05/27/2024 3:11 PM EST us [facility] LAB URINE ORDERABLES Final R esult [facility] [address] [place] [address], * Abdalla urine culture tube (05/27/2024 3:03 PM EST) Extra Tube Hold for add-ons. 05/27/2024 5:02 PM [facility] Comment:Auto resulted. Urine Urine specimen obtained by clean catch procedure / Unknown Non-blood Collection / Unknown 05/27/2024 3:03 PM EST 05/27/2024 3:11 PM EST [facility] LAB URINE ORDERABLES Final R esult Performing Organization Address City/[facility]/ZIP Co de Phone Number [facility] [address] [place] [address], [place] [phone] * (ABNORMAL) Culture urine (05/27/2024 3:03 PM EST) Culture, Urine >100,000 CFU/mL Escherichia coli(A) ARNEL 05/29/2024 9:41 AM EST [facility] Urine Urine specimen obtained by clean catch procedure / Unknown Non-blood Collection / Unknown 05/27/2024 3:03 PM EST 05/27/2024 3:48 PM EST Narrative Organism Antibiotic Method Susceptibility Escherichia coli Amoxicillin/Clavulanate ARNEL <=2 ug/ml: Susceptible Escherichia coli Ampicillin/Sulbactam ARNEL <=2 ug/ml: Susceptible Escherichia coli Piperacillin/Tazobactam ARNEL <=4 ug/ml: Susceptible Escherichia coli Cefazolin (Urine) ARNEL <=1 ug/ml: Susceptible Escherichia coli Cefoxitin ARNEL <=4 ug/ml: Susceptible Escherichia coli Ceftazidime ARNEL <=0.5 ug/ml: Susceptible Escherichia coli Ceftriaxone ARNEL <=0.25 ug/ml: Susceptible Escherichia coli Cefepime ARNEL <=0.12 ug/ml: Susceptible Escherichia coli Meropenem ARNEL <=0.25 ug/ml: Susceptible Escherichia coli Amikacin ARNEL 4 ug/ml: Susceptible Escherichia coli Gentamicin ARNEL <=1 ug/ml: Susceptible Escherichia coli Ciprofloxacin ARNEL <=0.06 ug/ml: Susceptible Escherichia coli Levofloxacin ARNEL <=0.12 ug/ml: Susceptible Escherichia coli Nitrofurantoin ARNEL <=16 ug/ml: Susceptible Escherichia coli Trimethoprim/Sulfamethoxazole ARNEL >=320 ug/ml: Resistant [facility] LAB MICROBIOLOGY - GENERAL O RDERABLES Final Result Performing Organization Address [facility]/ZIP Co de Phone Number [facility] [address] [place] [address], [place] [phone] * (ABNORMAL) POCT Glucose, blood (05/27/2024 7:12 AM EST) Only the most recent of11 resultswithin the time period is included. [facility] Glucose POCT 106(H) 70 - 100 mg/dL 05/27/2024 7:13 AM [facility] Blood Capillary blood specimen / Unknown 05/27/2024 7:12 AM EST 05/27/2024 7:14 AM EST us Wen Calles DO LAB POINT OF CARE TEST DOCKED DEVICE UNSOLICITED RESULTS Final Result [facility] [address] [place] [address], [place] [phone] * (ABNORMAL) CBC auto differential (05/24/2024 6:38 AM EST) [facility] WBC 7.5 4.8 - 10.8 K/mcL LAB HEMETOLOGY METHOD 05/24/2024 7:41 AM [facility] RBC 4.60 4.50 - 5.50 M/mcL LAB HEMETOLOGY METHOD 05/24/2024 7:41 AM [facility] Hemoglobin 13.8 13.5 - 17.5 g/dL LAB HEMETOLOGY METHOD 05/24/2024 7:41 AM [facility] Hematocrit 40.9(L) 42.0 - 54.0 % LAB HEMETOLOGY METHOD 05/24/2024 7:41 AM [facility] MCV 88.5 79.0 - 98.0 FL LAB HEMETOLOGY METHOD 05/24/2024 7:41 AM [facility] MCH 29.9 27.0 - 32.0 pcg LAB HEMETOLOGY METHOD 05/24/2024 7:41 AM [facility] MCHC 33.7 32.0 - 37.0 g/dL LAB HEMETOLOGY METHOD 05/24/2024 7:41 AM [facility] RDW 13.3 11.0 - 15.0 % LAB HEMETOLOGY METHOD 05/24/2024 7:41 AM [facility] Platelets 316 130 - 400 K/mcL LAB HEMETOLOGY METHOD 05/24/2024 7:41 AM [facility] MPV 9.2 7.0 - 11.0 FL LAB HEMETOLOGY METHOD 05/24/2024 7:41 AM [facility] NRBC 0.0 <1.0 % LAB HEMETOLOGY METHOD 05/24/2024 7:41 AM [facility] NRBC Absolute 0.00 <0.10 K/mcL LAB HEMETOLOGY METHOD 05/24/2024 7:41 AM [facility] Neutrophils Relative 50.7 % LAB HEMETOLOGY METHOD 05/24/2024 7:41 AM [facility] Lymphocytes Relative 31.2 % LAB HEMETOLOGY METHOD 05/24/2024 7:41 AM [facility] Monocytes Relative 14.5 % LAB HEMETOLOGY METHOD 05/24/2024 7:41 AM [facility] Eosinophils Relative 2.0 % LAB HEMETOLOGY METHOD 05/24/2024 7:41 AM [facility] Basophils Relative 1.1 % LAB HEMETOLOGY METHOD 05/24/2024 7:41 AM [facility] Immature Granulocytes Relative 0.5 % LAB HEMETOLOGY METHOD 05/24/2024 7:41 AM [facility] Neutrophils Absolute 3.78 1.50 - 7.00 K/mcL LAB HEMETOLOGY METHOD 05/24/2024 7:41 AM [facility] Lymphocytes Absolute 2.33 1.00 - 5.00 K/mcL LAB HEMETOLOGY METHOD 05/24/2024 7:41 AM [facility] [place] [facility] HOSPITAL LAB Monocytes Absolute 1.08(H) 0.20 - 1.00 K/mcL LAB HEMETOLOGY METHOD 05/24/2024 7:41 AM EST [facility]) [facility] Eosinophils Absolute 0.15 0.00 - 0.50 [facility] LAB HEMETOLOGY METHOD 05/24/2024 7:41 AM EST [facility]) [facility] Basophils Absolute 0.08 0.00 - 0.20 [facility] LAB HEMETOLOGY METHOD 05/24/2024 7:41 AM EST [facility]) [facility] Immature Granulocytes Absolute 0.04(H) 0.00 - 0.03 [facility] LAB HEMETOLOGY METHOD 05/24/2024 7:41 AM [facility] Blood Venous blood specimen / Unknown Venipuncture / Unknown 05/24/2024 6:38 AM EST 05/24/2024 7:23 AM EST us Wen Calles DO LAB BLOOD ORDERABLES Tanisha l Result [facility] ([facility] [address] [place] [address], from Last 3 Months Insurance [employer] MED[employer]ARE [employer]VANTAGE Advance Directives Documents on File Type Date Recorded Patient Apple Picker Expl anation Advance Directives and Living Will 06/07/2024 8:35 AM [employer] LOUANNRE AUTH EXT 2 * Full Code - Default (Latest Code Status on File) Date Activated Date Inactivated Comments 05/23/2024 5:01 PM 06/15/2024 1:30 PM This is order is used when code status has not been discussed with the patient, or code status is otherwise unknown/unconfirmed To update the patient's code status, place a code status order. Do not modify or discontinue any currently active code status orders. Care Teams Pantograph Transferrer Relationship Specialty Start Date End Date Sami Najera MD [address] [place] [address] [address] [place] [address] PCP - General Internal Medicine 05/19/24
--- OUTSIDE RECORDS SUMMARY | 2024-06-21 17:20 | XMS_ITS | Encounter Summary ---
Author Organization [facility] [place] [address] Care Team Providers Care Dramatic Reader Name Role Phone Sami Najera MD Primary Care Provider Encounter Details Date Type Department Care Team (Late st Contact Info) Description 06/08/2024 Plan of Care Documentation [facility] [address] [place] [phone] Social History Tobacco Use Types Packs/Day [...] Progress Notes * Kristy Dillard, OTR/L - 06/08/2024 11:54 AM EST Physical Medicine and Rehabilitation Team Conference Interdisciplinary Team Meeting Patient Name: Bob Han Date of : 1950 Sex: Male Payor Info: Payor: [employer] MED[employer]ARE ADVANTAGE / Plan: [employer] MEDICARE ADVANTAGE / Product Type: *No Product type* / Admitting Diagnosis: CVA (cerebral vascular accident) ([facility]) [I63.9] Admit Date/Time: 05/23/2024 4:44 PM Primary Rehab (Etiologic) Diagnosis: Patient Active Problem List Diagnosis CVA (cerebral vascular accident) ([facility]) Team Discussion UPDATES: Physician: pt with no acute concerns. RN: recommends no briefs to allow for toileting. Using barrier cream for skin. PIP in place. RN to review medications with SO. OT: some motor apraxia. SO in for training. Making progress. PT: progressed to stairs. Working with SO on mobility training. DIRECTOR OF SLEEP: improving. Education handouts let for pt. SW: following and reports improved mood. CM: reviewed D/C plan. Family training in progress. Referral made to [facility] pt and schedule is made. Expected Discharge Date: 06/15/2024 Risk Adjusted Scores: OT Current: 28 OT Goal: 31 PT Current: 40 PT Goal: 62 Follow-up Services: Day Rehab set up Equipment Needed: Family getting DME ; w/c on order. Barriers to Achieving Rehab Goals: no active barriers to D/C plan at this time. Occupational Therapy Assessment Overall Cognitive Status Overall Cognitive Status: Within Functional Limits Precautions Precautions Medical Precautions: Fall Risk Safety Interventions: Call [place] within reach RUE Weight Bearing Status: Full LUE Weight [...] Level: 25% or less CARE Score - Toileting Hygiene: 3 Shower/Bathe Self Assistance Needed: Incidental touching Physical Assistance Level: No physical assistance CARE Score - Shower/Bathe Self: 4 Upper Body Dressing Assistance Needed: Set-up / clean-up Physical Assistance Level: No physical assistance CARE Score - Upper Body Dressin Lower Body Dressing Assistance Needed: Incidental touching Physical Assistance Level: No physical assistance (steadying) CARE Score - Lower Body Dressin Putting On/Taking Off Footwear Assistance Needed: Physical assistance Physical Assistance Level: 76% or more CARE Score - Putting On/Taking Off Footwear: 2 Functional Transfers Toilet Transfer Assistance Needed: Physical assistance Physical Assistance Level: 51%-75% CARE Score - Toilet Transfer: 2 OT Assessment Results: OT Assessment Results: Decreased ADL status, Decreased upper extremity range of motion, Decreased upper extremity strength, Decreased endurance, Decreased fine motor control, Decreased functional mobility, Decreased gross motor control Evaluation/Treatment Tolerance: Evaluation/Treatment Tolerance: Patient tolerated treatment well Comments: Plan Treatment/Interventions: Treatment Interventions: ADL retraining, Functional transfer training, UE strengthening/ROM, Equipment evaluation/education, Patient/family training, Neuromuscular reeducation, Fine motor coordination activities, Compensatory [...] Physical Assistance Level: 26%-50% CARE Score - Lying to Sitting on Side of Bed: 3 Transfers Sit to Stand Assistance Needed: Incidental touching Physical Assistance Level: 25% or less CARE Score - Sit to Stand: 4 Chair/Yud-yd-Kxqdn Transfer Assistance Needed: Physical assistance Physical Assistance Level: 25% or less CARE Score - Chair/Sua-tk-Kgztw Transfer: 3 Car Transfer Reason if not Attempted: Environmental limitations CARE Score - Car Transfer: 10 Picking Up Object Assistance Needed: Physical assistance Physical Assistance Level: 51%-75% Comment: program and research coordinator CARE Score - Picking Up Object: 2 Wheelchair Wheel 50 Feet with Two Turns Assistance Needed: Supervision Physical Assistance Level: 76% or more CARE Score - Wheel 50 Feet with Two Turns: 4 Type of Wheelchair/Scooter: Manual Wheel 150 Feet Assistance Needed: Supervision Physical Assistance Level: 76% or more CARE Score - Wheel 150 Feet: 4 Type of Wheelchair/Scooter: Manual Ambulation Walk 10 Feet Assistance Needed: Incidental touching Physical Assistance Level: Total assistance Comment: SBQC CARE Score - Walk 10 Feet: 4 Walk 50 Feet with Two Turns Assistance Needed: Supervision Comment: SBQC Reason if not Attempted: Safety concerns CARE Score - Walk 50 Feet with Two Turns: 4 Walk 150 Feet Reason if not Attempted: [...] Score - 4 Steps: 3 12 Steps Assistance Needed: Physical assistance Physical Assistance Level: 26%-50% Reason if not Attempted: Safety concerns CARE Score - 12 Steps: 3 Precautions Precautions Medical Precautions: Fall Risk Safety Interventions: Call [place] within reach RUE Weight Bearing Status: Full LUE Weight [...] Skin Assessment Sensory Perceptions: Slightly limited Moisture: Occasionally moist Activity: Walks occasionally Mobility: Slightly limited Nutrition: Excellent Friction and Shear: Potential problem Alan Scale Score: 18 Pain Assessment Pain Assessment: No/denies pain Pain Score: 0 - No pain Pain Location: (low back) Bowel Management Bowel Continence Status: Continent movement Last BM Date: 06/06/24 Bladder Management Bladder Continence Status: Continent void Toileting Manager Warehouse's Assessment Adult diet [facility]; Cardiac, Modified Consistency Options for Liquids and Solids, Diabetic; IDDSI Level 6 Soft & Bite Sized; 90 gm carb/Meal; Sodium 2 gm Restriction Assessment Diet Experience Previous Diet / Nutrition Education / Counseling: Pt reports good appetite and intake at home. Usually eats 3 meals per day. Avoids salt and states he is careful with higher sodium foods. Pt reports being quite active prior to admission- usually walks 1 mile daily. Reports intentional weight loss of ~100 lb 5 years ago. No reported food allergies Appetite TUBE MACHINE OPERATOR HELPER: Good Intake TUBE MACHINE OPERATOR HELPER: Stable Nutrition Diagnosis Status: Other (Comment) (Ongoing) Diagnosis: Swallowing Difficulty Etiology: Physiologic causes Symptoms: need for IDDSI 6 soft and bite sized diet Nutrition Interventions: Meals/Snacks, Diet Order Monitoring/Evaluation: Fluid/Beverage Intake, Food Intake, Weight, Gastrointestinal Profile Physician Attestation: IWen DO, have led the team conference and agree with the results, findings, and decisions made by the interdisciplinary team. documented in this encounter Plan of Treatment Upcoming Encounters Date Type Department Care Team (Late st Contact Info) Description 06/22/2024 12:45 PM EST Evaluation [address] [phone] Dawson Small, PT 06/27/2024 11:00 AM EDT Treatment [address] [phone] Teresa Garner, PT 06/29/2024 12:30 PM EDT Treatment [facility] Occup[facility] [address] [address] Dakota Acosta, OT 07/04/2024 2:00 PM EDT Treatment [facility] [address] [phone] Randall Roe, TUBE MACHINE OPERATOR HELPER 07/06/2024 10:45 AM EDT Evaluation [facility] Speech Therapy [address] [phone] Rose Montez, DIRECTOR OF SLEEP 07/08/2024 11:00 AM EDT Treatment [facility] [address] [address] Randall Roe, TUBE MACHINE OPERATOR HELPER 07/11/2024 10:30 AM EDT Treatment [facility] Occupational Therapy [address] [phone] Alma Delia Lopes DIAZ 07/13/2024 10:45 AM EDT Treatment [facility] Speech Therapy [address] [phone] Rose Montez, DIRECTOR OF SLEEP 07/15/2024 11:45 AM EDT Treatment [address] [address] Randall Roe, TUBE MACHINE OPERATOR HELPER 07/15/2024 12:30 PM EDT Treatment [facility] Occupational Therapy [address] [phone] Keiko Munoz COTA/Daysi 07/18/2024 9:30 AM EDT Treatment [facility] Outpatient [facility] [address] [address] Randall Roe, TUBE MACHINE OPERATOR HELPER 07/18/2024 10:15 AM EDT Treatment [facility] Occupational Therapy [address] [phone] Alma Delia Lopes DIAZ 07/21/2024 10:45 AM EDT Treatment [facility] Speech Therapy [address] [phone] Rose Montez, DIRECTOR OF SLEEP 07/21/2024 11:15 AM EDT Treatment [facility] Occupational Therapy [address] [address] Alma Delia Lopes COTA 07/27/2024 12:45 PM EDT Treatment [facility] Speech Therapy [address] [address] Rose Montez, DIRECTOR OF SLEEP 08/03/2024 10:45 AM EDT Treatment [facility] Speech Therapy [address] [address] Rose Montez, DIRECTOR OF SLEEP 08/10/2024 11:30 AM EDT Treatment [facility] Speech Therapy [address] [place] [phone] Rose Montez, DIRECTOR OF SLEEP documented as of this encounter Visit Diagnoses Not on filedocumented in this encounter Additional Health Concerns Assessment Noted Time PHQ-9 Depression Total Score: 0 05/24/19 11:08 AM EST documented as of this encounter Care Teams Dramatic Reader Relationship Specialty Start Date End Date Sami Najera MD [address] [place] [address] [address] [place] [id number] PCP - General Internal Medicine 05/19/24 documented as of this encounter
--- OUTSIDE RECORDS SUMMARY | 2024-06-21 17:20 | XMS_ITS | Encounter Summary ---
Author Organization [facility] [place] [address] Care Team Providers Care Loft Worker Name Role Phone Sami Najera MD Primary Care Provider [phone] Encounter Details Date Type Department Care Team (Late st Contact Info) Description 06/20/[address] [facility] [address] [address] Social History Tobacco Use Types Packs/Day Years [...] 10:01 PM EST Sexual Orientation Lesbian or [place] 05/23/2024 10 :01 PM EST documented as of this encounter Progress Notes * Dakota Acosta, OT - 06/20/2024 2:11 PM EST Images from the original note were not included. [facility] - Outpatient OCCUPATIONAL THERAPY EVALUATION Date: 06/20/2024 Visit Number: 1 Patient Name: Bob Han : 1950 Age: 74 y.o. Gender: male Diagnosis: ICD-10-CM ICD-9-CM 1. Cerebrovascular accident (CVA), unspecified mechanism ([facility]) I63.9 434.91 Ambulatory referralto Occupational Therapy Date of Onset: 05/25/2024 Referring Provider: Wen Calles DO Insurance: Payor: [facility] MEDICARE ADVANTAGE / Plan: [employer] MEDICARE ADVANTAGE / Product Type: *No Product type* / Language: Speaks and understands Maori as preferred language with no patch driller required has a past medical history of [...] Pt presented to the emergency department at [facility] , feeling unwell, migraine with aura, intermittent slurred speech, and memory loss. On 05/18/2024 patient had an MRI of the brain that showed acute nonhemorrhagic stroke/ischemia, right mid ruperto likely involving the hyster driver ruperto arteries. With small vessel occlusive disease. He had transthoracicecho on 05/18 that showed the left ventricular systolic function is normal with a calculated ejection fraction is 63% by biplane method. Moderate aortic valve stenosis. Pt transferred to [place] 05/23/24- 06/15/24 for intense rehab including OT/PT/FIGURE CLERK. 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] and Patient will perform HEP MOD I OT STG 6-8 visits (pt-stated) Pt will demo improved AROM in L UE by 10* for increased ease of donning a shirt Patient will demo L UE strength improved by 1/2 muscle grade to be able to bath with min A, Patient will demo L electrical control assembler strength >= 16# to be able to [...] UE as a gross assist for ADLs Pt goals (pt-stated) To have a reasonable level of mobility (pt was walking 2-3 miles in the [facility]) Improved strength in L hand Be able to reach up to wash hair PLAN POC Development/Review: Initial Evaluation; Participants: Patient and Spouse / Significant Other Skilled Therapy Plan Required: YES- Reasons for Rehab and Medical Necessity -- Reduce Need for Assist with Functional Activity/ADL's/Mobility and Function in Community Planned Therapy Interventions: Therapeutic Activity (01696), Therapeutic Exercise (31120), Self-Care (87877), and Neuromuscular Re-education (57141) Planned Therapy Duration: 24 visits BILLING (This Date of Service) OT Evaluation Time Entry OT Evaluation (Complex) Time Entry: 60 TOTAL TREATMENT TIME: 60 Minutes Evaluation High [...] and/or participation restrictions Documentation completed by Dakota Acosta OT [facility] OCCUPATIONAL THERAPY [address] [place] [phone] Dept: [phone] Dept PATIENT NAME: Bob Han : 1950 [...] Info) Description 06/22/2024 12:45 PM EST Evaluation [address] [phone] Dawson Smlal, PT 06/27/2024 11:00 AM EDT Treatment [address] [phone] Teresa Garner, PT 06/29/2024 12:30 PM EDT Treatment [facility] Occupational Therapy [address] [place] [phone] Dakota Acosta, OT 07/04/2024 2:00 PM EDT Treatment [facility] [address] [address] Randall Roe, CORRECTIONAL OFFICER CAPTAIN 07/06/2024 10:45 AM EDT Evaluation [facility] Speech Therapy [address] [phone] Rose Montez, FIGURE CLERK 07/08/2024 11:00 AM EDT Treatment [facility] [address] [address] Randall Roe, CORRECTIONAL OFFICER CAPTAIN 07/11/2024 10:30 AM EDT Treatment [facility] Occupational Therapy [address] [address] Alma Delia Lopes, DIAZ 07/13/2024 10:45 AM EDT Treatment [facility] Speech Therapy [address] [address] Rose Montez, FIGURE CLERK 07/15/2024 11:45 AM EDT Treatment [facility] [address] [phone] Randall Roe, CORRECTIONAL OFFICER CAPTAIN 07/15/2024 12:30 PM EDT Treatment [facility] Occupational Therapy [address] [address] Keiko Munoz, DIAZ/Daysi 07/18/2024 9:30 AM EDT Treatment [facility] [address] [address] Randall Roe, CORRECTIONAL OFFICER CAPTAIN 07/18/2024 10:15 AM EDT Treatment [facility] Occupational Therapy [address] [address] Alma Delia Lopes, DIAZ 07/21/2024 10:45 AM EDT Treatment [facility] Speech Therapy [address] [phone] Rose Montez, FIGURE CLERK 07/21/2024 11:15 AM EDT Treatment [facility] [address] [address] Moses Alma Delia EMILY العلي 07/27/2024 12:[address] [facility] [address] [phone] Rose Montez, FIGURE CLERK 08/03/2024 10:[address] [facility] [address] [phone] Rose Montez, FIGURE CLERK 08/10/2024 11:[address] [facility] [address] [phone] Rose Montez, FIGURE CLERK documented as of this encounter Goals Goal Patient Goal Type Associated Problems Recent Progress Patient-Stated? Author Pt goals General Yes Dakota Acosta, OT Note: To have a reasonable level of mobility (pt was walking 2-3 miles in the [facility] CORRECTIONAL OFFICER CAPTAIN) Improved strength in L hand Be able to reach up to wash hair OT STG 6-8 visits General Yes Dakota Acosta, OT Note: Pt will demo improved AROM in L UE by 10* for increased ease of donning a shirt Patient will demo L UE strength improved by 1/2 muscle grade to be able to bath with min A, Patient will demo L electrical control assembler strength >= 16# to be able to [...] for basic ADLs, Patient will demo L electrical control assembler strength >= 25 to be able to [...] Time PHQ-9 Depression Total Score: 0 06/14/19 2:38 PM EST documented as of this encounter Care Teams Loft Worker Relationship Specialty Start Date End Date Sami Najera MD [address] [place] [address] [address] [place] [address] PCP - General Internal Medicine 05/19/24 documented as of this encounter
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
--- OUTSIDE RECORDS SUMMARY | 2024-06-21 17:20 | XMS_ITS | Encounter Summary ---
Author Organization [facility] Address [address] [place] [address] Care Team Providers Care Deputy Brand Inspector Name Role Phone Sami Najera MD Primary Care Provider [phone] Reason for Referral * Consultation (Routine) - Authorized Specialty Diagnoses / Procedures Referred By Maude t Referred To Contact Speech Pathology / Speech Therapy Diagnoses Cerebrovascular accident (CVA), unspecified mechanism (CMS/HCC) Wen Calles DO [address] [place] [address] Phone: tel: fax: Referral ID Status Reason Start Date Expiration Date Visits Requested Visits Authorized [id number] Authorized Specialty Services Required 05/25/2024 05/25/2025 6 6 * Consultation (Routine) - Authorized Specialty Diagnoses / Procedures Referred By Contvalentín t Referred To Contact Occupational Therapy Diagnoses Cerebrovascular accident (CVA), unspecified mechanism (CMS/HCC) Wen Calles DO [address] [place] [address] Phone: tel: fax: Referral ID Status Reason Start Date Expiration Date Visits Requested Visits Authorized [id number] Authorized Specialty Services Required 05/25/2024 05/25/2025 25 25 * Consultation (Routine) - Authorized Specialty Diagnoses / Procedures Referred By Contac t Referred To Contact Physical Therapy Diagnoses Cerebrovascular accident (CVA), unspecified mechanism (CMS/HCC) Wen Calles DO [address] [place] [address] Phone: tel: fax: Referral ID Status Reason Start Date Expiration Date Visits Requested Visits Authorized [id number] Authorized Specialty Services Required 05/25/2024 05/25/2025 6 6 Reason for Visit * Auth/Cert (Routine) Specialty Diagnoses / Procedures Referred By Contvalentín t Referred To Contact Diagnoses stroke Procedures [facility]) Wen Calles DO [address] [place] [address] Phone: tel: fax: [facility] [address] [place] [phone] Phone: tel: Referral ID Status Reason Start Date Expiration Date Visits Re quested Visits Authorized [id number] 1 1 Encounter Details Date Type Department Care Team (Latest Contact Info) Description 05/23/2024 4:44 PM EST - 06/15/2024 11:25 AM EST Hospital Encounter [facility] [address] [place] [phone] Wen Calles DO [address] [place] [address] Cerebrovascular accident (CVA), unspecified mechanism (CMS/HCC) (Primary Dx) Discharge Disposition: Home or Self Care Social History Tobacco Use Types Packs/Day Years [...] PM EST documented as of this encounter Last Filed Vital Signs Vital Sign Reading Time Taken Comments Blood Pressure 124/52 06/15/2024 8:01 AM EST Pulse 64 06/15/2024 8:01 AM EST Temperature 36.5 ??C (97.7 ??F) 06/15/2024 8:01 AM ES T Respiratory Rate 18 06/15/2024 8:01 AM EST Oxygen Saturation 95% 06/15/2024 8:01 AM EST Inhaled Oxygen Concentration - - Weight - - Height - - Body Mass Index - - documented in this encounter Discharge Summaries * ERIC Carbone - 06/14/2024 4:36 PM EST Images from the original note were not included. PHYSICAL MEDICINE AND REHABILITATION Discharge Summary Patient Name: Bob Han Date of : 1950 Sex: Male Admit Date/Time: 05/23/2024 4:44 PM Discharge Date: 06/15/2024 HPI: This is a 73-year-old male with past medical history significant for hypertension, hyperlipidemia, obesity, migraines, anxiety, osteoporosis, who presented to the emergency department at [facility] for feeling unwell, migraine with aura, intermittent slurred speech, and memory loss. His last known well time was unclear. Patient's lab work in the emergency department unremarkable. CTA does not show any major arterial branch block occlusion. He was admitted to the medical team on 05/17. On 05/18/2024 patient had an MRI of the brain that showed acute nonhemorrhagic stroke/ischemia, right mid ruperto likely involving the inserting machine operator ruperto arteries. With small vessel occlusive disease. He had transthoracic echo on 05/18 that showed the left ventricular systolic function is normal with a calculated ejection fraction is 63% by biplane method. Moderate aortic valve stenosis. He was seen by neurology who states he appeared to have had a right hemisphere stroke. Recommended PT/OT, aspirin and atorvastatin which patient reports he does not tolerate therefor he was given ezetimibe. During his time at [facility] he had an elevated ammonia he had an ultrasound done of his abdomen that showed no liver disease. His ammonia normalized without intervention. He was monitored, stabilized and sent to us on May 23, 2024 for physical therapy, occupational therapy, speech-language pathology and nursing care HOSPITAL COURSE: #Impaired mobility and self-care -Secondary to CVA -Continue with PT/OT/speech #Acute ischmic CVA #Left hemiparesis -Aspirin 81 mg daily -Ezetimibe 10 mg daily -continue therapies -f/u Neurology after discharge #Hypertension -Amlodipine 5 mg daily #DMT2 -A1C 5.3 -Diabetic diet -ISS discontinued given that fingersticks controlled #Lumbar spinal stenosis -will plan for follow up with [facility] after discharge for further management #Insomnia -Melatonin 9mg QHS PRN discontinued on 06/03 given that medication causes fatigue the following day #Hyperammonemia, resolved -Present at [facility] on 05/17 however resolved #UTI -Amoxicillin 250mg Q8H x10 days (end date: 06/07) d/c on 05/31 and transitioned to Ceftin 250 mg BID x 7 days (completed on 06/07) #Bowel management -Colace 100mg BID -Miralax 17gm daily -Senna 2 tabs QHS DVT ppx: Continue Aspirin and ambulation with therapies as tolerated. SCDs to BLE when in bed. PHYSICAL EXAMINATION: Vitals: 06/13/24 1523 06/14/24 0304 06/14/24 0700 06/14/24 0752 BP: 128/74 111/56 112/60 136/62 BP Location: Right arm Right arm Right arm Right arm Patient Position: Sitting Lying Lying Sitting Pulse: 60 56 54 59 Resp: 16 18 Temp: 36.7 ??C (98.1 ??F) 36.9 ??C (98.4 ??F) 36.6 ??C (97.9 ??F) TempSrc: Oral Oral Oral SpO2: 99% 96% 96% General: Alert, in no acute cardiopulmonary distress. Mental Status: Oriented to person, place and time. Normal affect. Head: Normocephalic. Eyes: Pupils are equal, round and reactive to light. Extraocular muscles intact. Ear, Nose and Throat: Oropharynx clear, mucous membranes moist. Ears and nose without masses, lesions or deformities. Neck: Supple, Trachea midline. Respiratory: Clear to auscultation and percussion. No wheezing, rales or rhonchi. Cardiovascular: Heart sounds normal. No thrills. Regular rate and rhythm, no murmurs, rubs or gallops. Gastrointestinal: Abdomen soft, non-tender, non-distended. Normal bowel sounds. Genitourinary: No costovertebral angle tenderness. Neurologic: Cranial nerves II-XII intact. Deep tendon reflexes +2 bilaterally. Negative Hoffmans sign bilaterally. Negative clonus bilaterally. + pronation and flexion drift of the left upper extremity with left upper extremity weakness 3+/5. Left lower extremity 5 minus/5, hyperreflexia on the left side with an extensor plantar response.Sensation intact bilaterally. Skin: No rashes or lesions. No petechiae or purpura. No edema. Musculoskeletal: No cyanosis or clubbing. No gross deformities. Strength 4/5 throughout the left upper extremity. FUNCTIONAL STATUS: PT: Treatment/Interventions: Functional transfer training, LE strengthening/ROM, Endurance training, Cognitive reorientation, Bed mobility, Gait training, Balance training, Continued evaluation, Compensatory technique education PT Plan: Skilled PT OT: OT Discharge Recommendations: Outpatient OT Equipment Recommended: Tub transfer bench, Toilet safety frame OT - OK to Discharge: Yes Plan Treatment Interventions: ADL retraining, Functional transfer training, UE strengthening/ROM, Equipment evaluation/education, Patient/family training, Neuromuscular reeducation, Fine motor coordination activities, Compensatory technique education OT Plan: Skilled OT OT Frequency : 5-7 days per week OT Duration of Sessions: 60-90 min per session OT Treatments per day: 1-2 times per day OT - Evaluation Status: Complete OT Discharge Recommendations: Outpatient OT Equipment Recommended: Tub transfer bench, Toilet safety frame OT - OK to Discharge: Yes BULK FLUIDS HANDLER: Plan Treatment/Interventions: Cognitive linguistic functioning BULK FLUIDS HANDLER Plan: Skilled BULK FLUIDS HANDLER BULK FLUIDS HANDLER Frequency: 5-7 days per week BULK FLUIDS HANDLER Duration of Sessions: 30-60 min per session BULK FLUIDS HANDLER Treatments per day: 1 time per day BULK FLUIDS HANDLER - Evaluation Status: Complete BULK FLUIDS HANDLER Discharge Recommendations: Outpatient BULK FLUIDS HANDLER BULK FLUIDS HANDLER - Next Appointment: 06/14/24 LABS: Lab Results Component Value Date WBC 7.9 06/07/2024 RBC 4.70 06/07/2024 HGB 13.6 06/07/2024 HCT 41.2 (L) 06/07/2024 MCV 87.5 06/07/2024 MCHC 33.0 06/07/2024 RDW 12.8 06/07/2024 PLT 384 06/07/2024 MPV 8.5 06/07/2024 NRBC 0.0 06/07/2024 DIFF Lab Results Component Value Date LYMPHOPCT 31.2 05/24/2024 NEUTROABS 3.78 05/24/2024 LYMPHSABS 2.33 05/24/2024 MONOABS 1.08 (H) 05/24/2024 EOSABS 0.15 05/24/2024 BASOSABS 0.08 05/24/2024 IMMGRANABS 0.04 (H) 05/24/2024 RETIC No results found for: RETIC , RETICCTPCT Lab Results Component Value Date NA 134 06/07/2024 K 4.4 06/07/2024 CL 104 06/07/2024 CO2 28 06/07/2024 GLUCOSE 89 06/07/2024 BUN 20 06/07/2024 CREATININE 0.78 06/07/2024 CALCIUM 9.4 06/07/2024 PROT 6.8 06/07/2024 ALBUMIN 2.9 (L) 06/07/2024 BILITOT 0.5 06/07/2024 AST 33 06/07/2024 ALT 51 06/07/2024 ALKPHOS 114 06/07/2024 EGFR 94 06/07/2024 IMAGING: N/A DISCHARGE MEDICATIONS: Your medication list START taking these medications Instructions Last Dose Given Next Dose Due docusate sodium 100 mg capsule Commonly known as: COLACE Take 1 capsule (100 mg total) by mouth 2 (two) times a day. nystatin 100,000 unit/gram powder Commonly known as: MYCOSTATIN Apply topically 2 (two) times a day for 10 days. polyethylene glycol 17 gram packet Commonly known as: MIRALAX Start taking on: June 15, 2024 Take 17 g by mouth 1 (one) time each day. senna 8.6 mg tablet Commonly known as: SENOKOT Take 2 tablets (17.2 mg total) by mouth at bedtime. CHANGE how you take these medications Instructions Last Dose Given Next Dose Due amLODIPine 5 mg tablet Commonly known as: NORVASC Start taking on: June 15, 2024 What changed: additional instructions Take 1 tablet (5 mg total) by mouth 1 (one) time each day. CONTINUE taking these medications Instructions Last Dose Given Next Dose Due aspirin 81 mg chewable tablet Chew 1 tablet (81 mg total) 1 (one) time each day. ezetimibe 10 mg tablet Commonly known as: ZETIA Take 1 tablet (10 mg total) by mouth 1 (one) time each day. STOP taking these medications melatonin 3 mg tablet Where to Get Your Medications These medications were sent to [facility] - [place], [place] - [address] [facility] [address] [facility] [id number] amLODIPine 5 mg tablet aspirin 81 mg chewable tablet docusate sodium 100 mg capsule ezetimibe 10 mg tablet nystatin 100,000 unit/gram powder polyethylene glycol 17 gram packet senna 8.6 mg tablet DISCHARGE RECOMMENDATIONS: Code Status: Full Code - Default Diet: Diabetic Weight Bearing Precautions: N/A Wound Care Instructions: N/A Patient/PCP Follow Up Instructions: Follow up with outpatient providers as instructed Continue using nystatin until 06/24/2024 DISCHARGE FOLLOW UP APPOINTMENTS: Jun 20 OT EVALUATION with Dakota Alvarado Thursday 12:00 PM (Arrive by 11:45 AM) [facility] [address] [phone] Go to Lydia Najera MD Thursday Specialty: Internal Medicine 1:45pm Hospital Follow Up Appointment Primary Care will need to make referral to Neurology [address] [facility] [address] Jun 22 PT EVALUATION with Dawson Mccarthy PT Thursday 12:45 PM (Arrive by 12:30 PM) [facility] [address] [phone] Jun 27 PT TREATMENT with Teresa Rankin PT Thursday 11:00 AM Please bring any insurance information and a copayment if required by your insurance company. [facility] [address] [phone] Jun 29 OT TREATMENT with Dakota Alvarado Thursday 12:30 PM Please bring any insurance information and a copayment if required by your insurance company. [facility] [address] [phone] Jul 06 BULK FLUIDS HANDLER EVALUATION with Rose S Thursday 10:45 AM (Arrive by 10:30 AM) [facility] Speech Therapy [address] [phone] Jul 13 BULK FLUIDS HANDLER TREATMENT with Rose S Thursday 10:45 AM Please bring any insurance information and a copayment if required by your insurance company. [facility] [address] [phone] Cosigned by Wen Calles DO at 06/15/2024 10:19 AM EST Associated attestation - Wen Calles DO - 06/15/2024 10:19 AM EST Patient hemodynamically and functionally stable for discharge. Agree with discharge summary as documented by ERIC. My office at [facility] will contact patient by phone to schedule follow-up appointment for continued management of his lower back pain after discharge. * Theodore Clement OT - 06/14/2024 9:52 AM EST PHYSICAL THERAPY: Recommending - Dom use the large base quad cane in the house while walking. - Dom use the wheelchair for community level mobility. - Dom needs SUPERVISION walking in the house or any time he is moving in the house. - Dom needs SUPERVISION on stairs to get into and out of house. At this time Dom it is not recommended Dom drive until cleared by PCP/MD. Recommending if Dom falls at home to call --. Mirlande Aquino PT, DPT. OCCUPATIONAL THERAPY Recommending: -Close supervision with lower body dressing, bathing, toileting and toilet transfers. -Use of tub transfer bench and toilet safety frame. -Larry assists with all meal prep OR provide close supervision while Dom performs simple meal prep/snack retrieval. Theodore Clement, OTR/L Speech Therapy: Recommending: -Larry manage medication management LORNE Romero documented in this encounter Discharge Instructions * Discharge Instructions* ERIC Carbone - 06/14/2024 1:17 PM EST Code Status: Full Code - Default Diet: Diabetic Weight Bearing Precautions: N/A Wound Care Instructions: N/A Patient/PCP Follow Up Instructions: Follow up with outpatient providers as instructed Continue using nystatin until 06/24/2024 * Attachments The following attachments cannot be sent through Care Everywhere. * Preventing Pressure Sores: General Info ([place]gent[place]) * After a Stroke: Your Self-Care Plan: Video ([place]gent[place]) * Managing Your Medicines: Video ([place]) documented in this encounter Medications at Time of Discharge amLODIPine (NORVASC) 5 mg tabletIndication s:hypertension Take 1 tablet (5 mg total) by mouth 1 (one) time each day. 30 each 06/15/2024 5 aspirin 81 mg chewable tabletIndication s:myocardial infarction prevention Chew 1 tablet (81 mg total) 1 (one) time each day. 30 each 06/14/2024 5 docusate sodium (COLACE) 100 mg capsule Take 1 capsule (100 mg total) by mouth 2 (two) times a day. 60 each 06/14/2024 5 ezetimibe (ZETIA) 10 mg tablet Take 1 tablet (10 mg total) by mouth 1 (one) time each day. 30 each 06/14/2024 5 nystatin (MYCOSTATIN) 100,000 unit/gram powder Apply topically 2 (two) times a day for 10 days. 15 g 06/14/2024 5 polyethylene glycol (MIRALAX) 17 gram packet Take 17 g by mouth 1 (one) time each day. 510 g 06/15/2024 5 senna (SENOKOT) 8.6 mg tablet Take 2 tablets (17.2 mg total) by mouth at bedtime for 9 doses. 06/15/2024 5 documented as of this encounter Ordered Prescriptions Prescription Sig Dispense Quantity Refills Last Filled Start Date End Date senna (SENOKOT) 8.6 mg tablet Take 2 tablets (17.2 mg total) by mouth at bedtime for 9 doses. 06/15/2024 5 polyethylene glycol (MIRALAX) 17 gram packet Take 17 g by mouth 1 (one) time each day. 510 g 06/15/2024 5 nystatin (MYCOSTATIN) 100,000 unit/gram powder Apply topically 2 (two) times a day for 10 days. 15 g 06/14/2024 5 docusate sodium (COLACE) 100 mg capsule Take 1 capsule (100 mg total) by mouth 2 (two) times a day. 60 each 06/14/2024 5 ezetimibe (ZETIA) 10 mg tablet Take 1 tablet (10 mg total) by mouth 1 (one) time each day. 30 each 06/14/2024 5 aspirin 81 mg chewable tabletIndications: myocardial infarction prevention Chew 1 tablet (81 mg total) 1 (one) time each day. 30 each 06/14/2024 5 amLODIPine (NORVASC) 5 mg tabletIndications: hypertension Take 1 tablet (5 mg total) by mouth 1 (one) time each day. 30 each 06/15/2024 5 senna (SENOKOT) 8.6 mg tablet Take 2 tablets (17.2 mg total) by mouth at bedtime. 60 each 06/14/2024 5 documented in this encounter Discharge Disposition Disposition Code Departure Means Destination Comment s Home or Self Care documented in this encounter Progress Notes * Wisam Garnica RN - 06/15/2024 10:49 AM EST Goals: Clinical Goals for the Shift: Become oriented to unit/floor/staff. To sleep better. Identify possible barriers to meeting goals/advancing plan of care: no barriers Stability of the patient: Moderately Stable - Low risk of patient condition declining or worsening End of Shift Summary: Pt discharged home * Samy Esteban LCSW - 06/14/2024 2:39 PM EST Discharge note: Met with pt at bedside to review discharge plan. Pt discharging home tomorrow 06/15/24. Larry to provide transportation home at 11am. Pt will follow up with [facility] rehab for PT OT and BULK FLUIDS HANDLER. Nursing to review all discharge paperwork with pt and Peter tomorrow. Family training completed with Larry. Pt looking forward to discharge and had no questions or concerns at this time. Patient choice form, IM and discharge notification signed. * ERIC Carbone - 06/14/2024 1:11 PM EST Images from the original note were not included. [facility]IL[facility]ATION Daily Progress Note Patient name: Bob Han : 1950 SUBJECTIVE: Patient seen and examined at bedside today. No acute events overnight. Denies headaches, dizziness,shortness of breath, chest pain, nausea, constipation, and pain. Excited to go home tomorrow. Feels like he has made significant progress. OBJECTIVE: Vitals: 06/13/24 1523 06/14/24 0304 06/14/24 0700 06/14/24 0752 BP: 128/74 111/56 112/60 136/62 BP Location: Right arm Right arm Right arm Right arm Patient Position: Sitting Lying Lying Sitting Pulse: 60 56 54 59 Resp: 16 16 18 Temp: 36.7 ??C (98.1 ??F) 36.9 ??C (98.4 ??F) 36.6 ??C (97.9 ??F) TempSrc: Oral Oral Oral SpO2: 99% 96% 96% Physical Examination: General: Alert, in no acute cardiopulmonary distress. Mental Status: Oriented to person, place and time. Normal affect. Head: Normocephalic. Eyes: Pupils are equal, round and reactive to light. Extraocular muscles intact. Ear, Nose and Throat: Oropharynx clear, mucous membranes moist. Ears and nose without masses, lesions or deformities. Neck: Supple, Trachea midline. Respiratory: Clear to auscultation and percussion. No wheezing, rales or rhonchi. Cardiovascular: Heart sounds normal. No thrills. Regular rate and rhythm, no murmurs, rubs or gallops. Gastrointestinal: Abdomen soft, non-tender, non-distended. Normal bowel sounds. Genitourinary: No costovertebral angle tenderness. Neurologic: Cranial nerves II-XII intact. Deep tendon reflexes +2 bilaterally. Negative Hoffmans sign bilaterally. Negative clonus bilaterally. + pronation and flexion drift of the left upper extremity with left upper extremity weakness 3+/5. Left lower extremity 5 minus/5, hyperreflexia on the left side with an extensor plantar response.Sensation intact bilaterally. Skin: No rashes or lesions. No petechiae or purpura. No edema. Musculoskeletal: No cyanosis or clubbing. No gross deformities. Strength 4/5 throughout the left upper extremity. CURRENT INPATIENT MEDICATIONS: Current Facility-Administered Medications: aluminum-magnesium hydroxide-simethicone (MAALOX) 200-200-20 mg/5 mL suspension 30 mL, 30 mL, oral,q4h PRN, Wen A Stevan, DO amLODIPine (NORVASC) tablet 5 mg, 5 mg, oral, Daily, Wen A Stevan, DO, 5 mg at 06/14/24 0836 aspirin chewable tablet 81 mg, 81 mg, oral, Daily, Wen A Stevan, DO, 81 mg at 06/14/24 0836 bisacodyL (DULCOLAX) suppository 10 mg, 10 mg, rectal, Daily PRN, Wen A Stevan, DO, 10 mg at05/26/24 1348 dextrose (D50W) 50% injection 12.5 g, 12.5 g, intravenous, q15 min PRN, Tahmina Hanna, PA dextrose (D50W) 50% injection 25 g, 25 g, intravenous, q15 min PRN, Neftalita Jacques, PA dextrose 15 gram/60 mL oral solution 15 g, 15 g, oral, q15 min PRN, Susanita Jacques, PA dextrose 15 gram/60 mL oral solution 30 g, 30 g, oral, q15 min PRN, Tahmina Bonebb, PA docusate sodium (COLACE) capsule 100 mg, 100 mg, oral, BID, Wen A Stevan, DO, 100 mg at 06/14/24 0836 ezetimibe (ZETIA) tablet 10 mg, 10 mg, oral, Daily, Wen A Stevan, DO, 10 mg at 06/14/24 0836 Glucagon HCl (rDNA) injection 1 mg, 1 mg, intramuscular, Once PRN, Tahmina Hanna, PA magnesium hydroxide (MILK OF MAGNESIA) 400 mg/5 mL suspension 30 mL, 30 mL, oral, Daily PRN, Wen A Stevan, DO, 30 mL at 05/30/24 1357 nystatin (MYCOSTATIN) 100,000 unit/gram powder, , Topical, BID, Wen A Stevan, DO, Given at 06/14/24 0837 polyethylene glycol (MIRALAX) packet 17 g, 17 g, oral, Daily, ERIC Chisholm, 17 g at 06/14/24 0837 senna (SENOKOT) tablet 17.2 mg, 2 tablet, oral, Nightly, ERIC Chisholm, 17.2 mg at 06/12/242011 LABS: Lab Results Component Value Date WBC 7.9 06/07/2024 RBC 4.70 06/07/2024 HGB 13.6 06/07/2024 HCT 41.2 (L) 06/07/2024 MCV 87.5 06/07/2024 MCHC 33.0 06/07/2024 RDW 12.8 06/07/2024 PLT 384 06/07/2024 MPV 8.5 06/07/2024 NRBC 0.0 06/07/2024 DIFF Lab Results Component Value Date LYMPHOPCT 31.2 05/24/2024 NEUTROABS 3.78 05/24/2024 LYMPHSABS 2.33 05/24/2024 MONOABS 1.08 (H) 05/24/2024 EOSABS 0.15 05/24/2024 BASOSABS 0.08 05/24/2024 IMMGRANABS 0.04 (H) 05/24/2024 RETIC No results found for: RETIC , RETICCTPCT Lab Results Component Value Date NA 134 06/07/2024 K 4.4 06/07/2024 CL 104 06/07/2024 CO2 28 06/07/2024 GLUCOSE 89 06/07/2024 BUN 20 06/07/2024 CREATININE 0.78 06/07/2024 CALCIUM 9.4 06/07/2024 PROT 6.8 06/07/2024 ALBUMIN 2.9 (L) 06/07/2024 BILITOT 0.5 06/07/2024 AST 33 06/07/2024 ALT 51 06/07/2024 ALKPHOS 114 06/07/2024 EGFR 94 06/07/2024 IMPRESSION & PLAN: #Impaired mobility and self-care -Secondary to CVA -Continue with PT/OT/speech #Acute ischmic CVA #Left hemiparesis -Aspirin 81 mg daily -Ezetimibe 10 mg daily -continue therapies -f/u Neurology after discharge #Hypertension -Amlodipine 5 mg daily #DMT2 -A1C 5.3 -Diabetic diet -ISS discontinued given that fingersticks controlled #Lumbar spinal stenosis -will plan for follow up with [facility] after discharge for further management #Insomnia -Melatonin 9mg QHS PRN discontinued on 06/03 given that medication causes fatigue the following day #Hyperammonemia, resolved -Present at [facility] on 05/17 however resolved #UTI -Amoxicillin 250mg Q8H x10 days (end date: 06/07) d/c on 05/31 and transitioned to Ceftin 250 mg BID x 7 days (completed on 06/07) #Bowel management -Colace 100mg BID -Miralax 17gm daily -Senna 2 tabs QHS DVT ppx: Continue Aspirin and ambulation with therapies as tolerated. SCDs to BLE when in bed. Cosigned by Wen Calles DO at 06/15/2024 8:53 AM EST Associated attestation - Wen Calles DO - 06/15/2024 8:53 AM EST Agree with progress note, assessment, and plan as documented by ERIC. * LORNE Romero - 06/14/2024 10:15 AM EST Speech Language Pathology Speech/Language Pathology Discharge Report Subjective: Patient's response to therapy: I am ready to go home Objective: Gokul Cognitive Assessment (MOCA) 8.3 Visuospatial/Executive: 3/5 Namin/3 Attention - Digits: 2/2 Attention - Letters: 1/1 Attention - Serial Subtraction: 2/3 Language - Repetition: 1/2 Language - Naming Fluency: 0/1 Abstraction: 2/2 Delayed Recall: 2/5 Orientation: 2/6 TOTAL SCORE: 22/30 Normal >= 26/30 Comments: Gokul Cognitive Assessment (MOCA) Version 8.3: Composite Score: +22/30, correlating to MILD cognitive impairment. Interpretation: scores of 26 or greater are WFL compared to a normative sample of similarly aged adults. Below this, scores can indicate severe (<=9 points), moderate (10-18 points) or mild (19-24points) cognitive impairment Memory Index Score: 02/01: 2/5 words recalled independently, 1/5 with category cues, 2/5 with multiple choice cues. Pt tasked with identifying short term and jail goals for PT/OT/ST after d/c. Pt able to generate safe ambulation, improve L UE strength to participate in repairments around the house and taking walks around the neighborhood for PT. Generated assisting with washing dishes, cleaning the bathroomand gardening for OT. Generated assisting with financial coordinator and fishing for cognitive goals. Overall, required min A with organizing tasks based on therapy. 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 (Resolved) Dates: Start: 05/24/24 Expected End: 05/27/24 Resolved: 06/01/24 Outcomes Date/Time User Outcome 06/01/24 1227 LORNE Bach Completed Goal: Pt will improve immediate and delayed recall of functional information to 80% accuracy given mod A for strategies. (Resolved) Dates: Start: 05/24/24 Expected End: 05/31/24 Resolved: 06/04/24 Outcomes Date/Time User Outcome 06/04/24 1400 LORNE Bach Completed Goal: Pt will participate in basic convergent/divergent categorization tasks at 80% accuracy given mod A. (Resolved) Dates: Start: 05/24/24 Expected End: 05/31/24 Resolved: 06/04/24 Outcomes Date/Time User Outcome 06/04/24 1400 LORNE Bach Completed Goal: Pt will participate in basic mental flexibility/working memory tasks at 80% accuracy given mod A. (Resolved) Dates: Start: 05/24/24 Expected End: 06/07/24 Resolved: 06/09/24 Outcomes Date/Time User Outcome 06/09/24 131LORNE Shipman Completed Goal: Pt will complete functional tasks targeting executive functioning skills (planning, organization, mental flexibility) at 80% accuracy given mod A. Dates: Start: 05/25/24 Expected End: 06/15/24 Description: Outcomes Date/Time User Outcome 06/14/24 113LORNE Rees Adequate for Discharge Goal: Pt will complete sequencing tasks w/ 90% accuracy given mod A (Resolved) Dates: Start: 05/26/24 Expected End: 06/08/24 Resolved: 06/09/24 Description: Outcomes Date/Time User Outcome 06/09/24 1312 LORNE Bach Completed Goal: Pt will be able to answer problem-solving/reasoning tasks related to safety and ADLs w/ 90% accuracy given min A (Resolved) Dates: Start: 05/26/24 Expected End: 06/02/24 Resolved: 06/04/24 Description: Outcomes Date/Time User Outcome 06/04/24 1400 LORNE Bach Completed Goal: Pt will be able to identify 2 post-stroke deficits given min A (Resolved) Dates: Start: 05/27/24 Expected End: 06/03/24 Resolved: 06/04/24 Description: Outcomes Date/Time User Outcome 06/04/24 1400 LORNE Bach Completed Goal: Pt will improve immediate and delayed recall of functional information to 80% accuracy given min A for encoding and indep. for retrieval Dates: Start: 06/04/24 Expected End: 06/11/24 Description: Outcomes Date/Time User Outcome 06/14/24 113LORNE Rees Adequate for Discharge Goal: Pt will participate in higher level naming tasks w/ 90% accuracy given min A Dates: Start: 06/04/24 Expected End: 06/11/24 Description: Outcomes Date/Time User Outcome 06/14/24 113LORNE Rees Adequate for Discharge Goal: Pt will improve attention w/ mod-higher level visual and/or auditory tasks w/ 80% accuracy given min A Dates: Start: 06/04/24 Expected End: 06/11/24 Description: Outcomes Date/Time User Outcome 06/14/24 LORNE Palacios Adequate for Discharge Goal: Pt will complete functional problem-solving/calculations tasks w/ 80% accuracy given mod A Dates: Start: 06/04/24 Expected End: 06/11/24 Description: Outcomes Date/Time User Outcome 06/14/24 1138 LORNE Romero Adequate for Discharge Goal: Pt will complete sequencing tasks w/ 90% accuracy given min A Dates: Start: 06/09/24 Expected End: 06/16/24 Description: Outcomes Date/Time User Outcome 06/14/24 1138 LORNE Romero Adequate for Discharge Encounter Problems (Resolved) There are no resolved problems. 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 Deficits characterized by reduced word retrieval, executive functioning, immediate/working/delayed memory and auditory attention. Strengths include visuospatial skills, naming, abs traction and orientation. Noted +9 point improvement compared to initial evaluation. Pt has been provided with various cognitive linguistic compensatory strategies and handouts for use at home. Pt would benefit from OP BULK FLUIDS HANDLER after discharge from this level of care to target aforementioned skills and promote carryover of compensatory strategies, as Pt continues to require cues for strategy use. Reviewed outcomes of discharge assessment and recommendations for next level of care. Pt verbalized understanding. Patient is discharged to: Home, spouse to assist with med management, recommend OP BULK FLUIDS HANDLER Patient/Family discharge education: Completed med management edu with spouse, provided spouse with med log to use as external memory strategy. Additional Discharge Considerations: See above. Cosigned by LORNE Rodriguez at 06/14/2024 1:08 PM EST Associated attestation - Corina Curran SLP - 06/14/2024 1:08 PM EST I attest that I, Coby Curran M.S.,[facility]-BULK FLUIDS HANDLER, was physically involved in the ongoing assessment, decision making, and interventions provided during today's patient care session. I have reviewed all documentation for today's 06/14/24, entered by Speech Therapy Fellow, Jana Cesar, and further attest that it is an accurate clinical record of today's encounter, including accurate and appropriatecharges. * Mirlande Aquino, PT - 06/14/2024 8:10 AM EST [facility] Physical Therapy Discharge Evaluation Note 06/14/24 Patient: Bob Han : 1950 Age: 74 y.o. Gender: male Primary Language: Argentine Diagnosis: CVA (cerebral vascular accident) (CMS/HCC) HPI: Defer to EMR Past Medical History: Diagnosis Date HLD (hyperlipidemia) HTN (hypertension) Migraines Spinal stenosis History reviewed. No pertinent surgical history. Allergies: is allergic to acetaminophen, atorvastatin, glipizide, and rosuvastatin. Precautions: Medical Precautions: Fall Risk Safety Interventions: Call [place] within reach, ID band on RUE Weight Bearing Status: Full LUE Weight Bearing Status: Full RLE Weight Bearing Status: Full LLE Weight Bearing Status: Full SUBJECTIVE I am excited to go home. Home Living: Type of Home: (two family) Lives With: Spouse Home Adaptive Equipment: Cane Home Layout: Two level, Bed/bath upstairs, 1/2 bath on main level Home Access: Stairs to enter with rails Entrance Stairs-Rails: (pt unable to recall stair set up) Entrance Stairs-Number of Steps: 3 Bathroom Shower/Tub: Tub/shower unit Bathroom Toilet: Standard Bathroom Equipment: Grab bars in shower Bathroom Accessibility: 2nd floor Pain: Pain Assessment: No/denies pain Pain Score: 2 Pain Location: Back OBJECTIVE General Observation: Seated in WC agreeable to participating in therapy session. Strength: 4/5 on RLE L Hip flexion 3/5 L Knee extension +3/5 L knee flexion -4/5 L Dorsiflexion 3/5 L plantar flexion 3/5 Range of Motion: Decreased AROM on LLE>RLE QUALITY INDICATORS SCORING: Bed Mobility Roll Left and Right Assistance Needed: Independent CARE Score - Roll Left and Right: 6 Sit to Lying Assistance Needed: Independent CARE Score - Sit to Lyin Lying to Sitting on Side of Bed Assistance Needed: Independent CARE Score - Lying to Sitting on Side of Bed: 6 Transfers Sit to Stand Assistance Needed: Independent CARE Score - Sit to Stand: 6 Chair/Riz-dq-Jnole Transfer Assistance Needed: Supervision CARE Score - Chair/Qty-vk-Vxwvc Transfer: 4 Toilet Transfer Assistance Needed: Supervision CARE Score - Toilet Transfer: 4 Car Transfer Assistance Needed: Physical assistance CARE Score - Car Transfer: 3 Ambulation Walk 10 Feet Assistance Needed: Supervision Comment: with LBQC CARE Score - Walk 10 Feet: 4 Walk 50 Feet with Two Turns Assistance Needed: Supervision Comment: With increased distance, pt unaware of fatigue levels, decreased foot clearance on LLE, needing cues to pickle solution maker LLE with increased amulation distance. CARE Score - Walk 50 Feet with Two Turns: 4 Walk 150 Feet Assistance Needed: Supervision Comment: RW;With increased distance, pt unaware of fatigue levels, decreased foot clearance on LLE,needing cues to pickle solution maker LLE with increased amulation distance CARE Score - Walk 150 Feet: 4 Walking 10 Feet on Uneven Surfaces Assistance Needed: Supervision Comment: [facility]QC CARE Score - Walking 10 Feet on Uneven Surfaces: 4 Stairs 1 Step (Curb) Assistance Needed: Supervision CARE Score - 1 Step (Curb): 4 4 Steps Assistance Needed: Supervision CARE Score - 4 Steps: 4 12 Steps Assistance Needed: Supervision CARE Score - 12 Steps: 4 Porter Sample Case Object Picking Up Object Assistance Needed: Independent Comment: soda fountain manager CARE Score - Picking Up Object: 6 Wheelchair Uses a Wheelchair/Scooter? Uses a Wheelchair/Scooter?: Yes Wheel 50 Feet with Two Turns Assistance Needed: Supervision Comment: Needing cues to lock WC brakes CARE Score - Wheel 50 Feet with Two Turns: 4 Type of Wheelchair/Scooter: Manual Wheel 150 Feet Assistance Needed: Supervision Comment: Needing cues to lock WC brakes CARE Score - Wheel 150 Feet: 4 Type of Wheelchair/Scooter: Manual PT TREATMENT PROVIDED TODAY: Neuromuscular Reeducation Balance/Neuromuscular Re-Education Neuromuscular Re-Education Time Entry: 75 Pt seated in WC agreeable to participating in therapy session, pt SUP x100ft down to therapy gym in. Pt mod-I for STS to LBQC, mod-I picking up an object with a soda fountain manager, pt ambulating x10ft steadying assistance-SUP with LBQC over uneven surface, pt ambulating x20ft steadying assistance-SUP with LBQC. Pt completed x150ft of ambulation with LBQC, steadying assistance. Pt unable to ambulate further pt verbalized increased instability in LLE. Pt completed x16 stairs with RUE on L ascending rail,pt with step to pattern no LOB, pt able to self correct for incorrect sequencing. Therapist and pt discussing d/c recommendations of initial SUP for LBQC, recommending WC for community mobility, pt reporting he cannot drive until cleared by PCP. Pt able to recall 3/6 BE FAST signs and symptoms of stroke. Pt able to recall if he has a fall to call 911. Pt completed x20 stairs with RUE on L ascending rail, SUP, pt needing cues for sequencing pt attempting to ascend step with LLE, pt buckling needing steadying assistance for recovery, pt unaware of poor sequencing. Pt completed 2x80ft of ambulation, step through gait pattern with use of LBQC, steadying assistance. Therapist and pt discussing smoking cessation. Pt completed WC mobility SUP x150ft, back to room. Pt left seated in WC call [place] in reach, chair alarm on, all needs met. PT ASSESSMENT: Patient discharged from this level of care, therapist recommending Outpatient physical therapy oncedischarged from this level of care to improve LE Strength, endurance, balance , mobility deficits ,and gait and assist patient in returning to prior level of function. PT Assessment Results: Decreased strength, Decreased range of motion, Decreased endurance, Impairedbalance, Impaired gait Prognosis: Good Evaluation/Treatment Tolerance: Patient tolerated treatment well PT PLAN: Treatment/Interventions: Functional transfer training, LE strengthening/ROM, Endurance training, Cognitive reorientation, Bed mobility, Gait training, Balance training, Continued evaluation, Compensatory technique education PT Plan: Skilled PT Goals: Encounter Problems Encounter Problems (Active) Template: Physical Therapy Problem: PT Group Home Goals Dates: Start: 05/24/24 Goal: mod-I ambulation x150ft Dates: Start: 05/24/24 Outcomes Date/Time User Outcome 06/14/24 0816 Mirlande Aquino, PT Adequate for Discharge Goal: mod-I x12 stairs unilat. railing Dates: Start: 05/24/24 Outcomes Date/Time User Outcome 06/14/24 0816 Mirlande Aquino, PT Adequate for Discharge Goal: mod-I bed mobility (Resolved) Dates: Start: 05/24/24 Resolved: 06/14/24 Outcomes Date/Time User Outcome 06/14/24 0816 Mirlande Aquino PT Completed Goal: mod-I transfers Dates: Start: 05/24/24 Outcomes Date/Time User Outcome 06/14/24 0816 Mirlande Aquino PT Adequate for Discharge Encounter Problems (Resolved) Template: Physical Therapy Problem: PT Short Term Goals Dates: Start: 05/24/24 Resolved: 06/14/24 Goal: SUP bed mobility (Resolved) Dates: Start: 05/24/24 Resolved: 06/14/24 Outcomes Date/Time User Outcome 06/14/24 0816 Mirlande Aquino PT Completed Goal: partial A transfers LRAD (Resolved) Dates: Start: 05/24/24 Resolved: 05/31/24 Outcomes Date/Time User Outcome 05/31/24 1137 Mirlande Aquino PT Completed Goal: partial A x50ft LRAD ambulation (Resolved) Dates: Start: 05/24/24 Resolved: 06/10/24 Outcomes Date/Time User Outcome 06/10/24 1311 Mirlande Aquino PT Completed Goal: partial A x4 stairs (Resolved) Dates: Start: 05/24/24 Resolved: 05/31/24 Outcomes Date/Time User Outcome 05/31/24 1137 Mirlande Aquino PT Completed Education Documentation Smoking Cessation, taught by Mirlande Aquino PT at 06/14/2024 9:46 AM. Learner: Patient Readiness: Acceptance Method: Explanation, Demonstration Response: Verbalizes Understanding, Demonstrated Understanding Warning Signs and Symptoms of Stroke, taught by Mirlande Aquino PT at 06/14/2024 9:24 AM. Learner: Patient Readiness: Acceptance Method: Explanation, Demonstration Response: Verbalizes Understanding, Demonstrated Understanding Comment: D/c recommendations, BE FAST, fall prevention, Activation of EMS (Call 911), taught by Mirlande Aquino PT at 06/14/2024 9:24 AM. Learner: Patient Readiness: Acceptance Method: Explanation, Demonstration Response: Verbalizes Understanding, Demonstrated Understanding Comment: D/c recommendations, BE FAST, fall prevention, Mobility Training, taught by Mirlande Aquino PT at 06/14/2024 9:24 AM. Learner: Patient Readiness: Acceptance Method: Explanation, Demonstration Response: Verbalizes Understanding, Demonstrated Understanding Comment: D/c recommendations, BE FAST, fall prevention, Mobility Training, taught by Mirlande Aquino PT at 06/14/2024 9:24 AM. Learner: Patient Readiness: Acceptance Method: Explanation, Demonstration Response: Verbalizes Understanding, Demonstrated Understanding Comment: D/c recommendations, BE FAST, fall prevention, Education Comments No comments found. Session Start/Stop Time: 844 [id number] Therapy Minutes Physical Therapy PT Individual: 90 * Theodore Clement OT - 06/14/2024 7:00 AM EST [facility] Occupational Therapy Discharge Note 06/14/24 Patient: Bob Han : 1950 Age: 74 y.o. Gender: male Diagnosis: CVA (cerebral vascular accident) (CMS/HCC) Primary Rehab (Etiologic) Diagnosis: Patient Active Problem List Diagnosis CVA (cerebral vascular accident) ([facility]) PMH: Past Medical History: Diagnosis Date HLD (hyperlipidemia) HTN (hypertension) Migraines Spinal stenosis PSH: History reviewed. No pertinent surgical history. Allergies: is allergic to acetaminophen, atorvastatin, glipizide, and rosuvastatin. Precautions: Precautions Medical Precautions: Fall Risk Safety Interventions: Call [place] within reach, ID band on RUE Weight Bearing Status: Full LUE Weight Bearing Status: Full RLE Weight Bearing Status: Full LLE Weight Bearing Status: Full Vitals: BP: 112/60 Heart Rate: 54 Pain: Pain Assessment: No/denies pain Patient Subjective: I feel my balance getting better Session Summary from 06/14/24 D/c eval performed CAMS Discharge Is there evidence of an acute change in mental status from the patient's baseline?: No (06/14/24699 : Theodore Clement OT) Inattention: Behavior not present (06/14/24699 : Theodore Clement OT) Disorganized thinking: Behavior not present (06/14/24699 : Theodore Clement OT) Altered level of consciousness: Behavior not present (06/14/24699 : Theodore Clement OT) BIMS Discharge 15 (06/14/24 07 : Theodore Michalowski, OT) Hearing, Speech, and Vision- Discharge Hearing, Speech, and Vision Ability to Hear: Minimal difficulty Ability to See in Adequate Light: Impaired Expression of Ideas and Wants: Without difficulty Understanding Verbal and Non-Verbal Content: Usually understands FUNCTIONAL STATUS ADL ASSIST Eating Assistance Needed: Independent Oral Hygiene Oral Hygiene Assistance Needed: Independent Physical Assistance Level: No physical assistance Comment: seated in w/c. reccomending POST for home CARE Score - Oral Hygiene: 6 Toileting Toileting Hygiene Assistance Needed: Supervision Physical Assistance Level: No physical assistance Comment: steadying A CARE Score - Toileting Hygiene: 4 Bathing Shower/Bathe Self Assistance Needed: Supervision Physical Assistance Level: No physical assistance Comment: steadying A in shower due to no grab bars at home CARE Score - Shower/Bathe Self: 4 UE Dressing Upper Body Dressing Assistance Needed: Independent Physical Assistance Level: No physical assistance CARE Score - Upper Body Dressin LE Dressing Lower Body Dressing Assistance Needed: Independent Physical Assistance Level: No physical assistance (steadying) CARE Score - Lower Body Dressin Footwear Putting On/Taking Off Footwear Assistance Needed: Independent Physical Assistance Level: 76% or more CARE Score - Putting On/Taking Off Footwear: 6 Toilet Transfer Assistance Needed: Supervision Tub/Shower Transfer Tub/Shower Transfer Assistance: Not attempted, medical/safety concerns Equipment Provided: pt's SO plans to buy tub txfer bench, and toilet safety frame. Pt plans to use urinals at night time. ADL Comments: Pt has progressed to mod I with dressing, however recommending initial S at home. Also recommending S with bathing in shower and toileting (including txfer). Recommending assist with all meal prep and med management. Pt able to participate in meal prep, however recommending close S toassist with bilateral tasks prn and for balance/functional mobility. Vision: Vision - Complex Assessment Tracking: Able to track stimulus in all quads without difficulty (decreased speed, and minimal headturns.) Saccades: Additional eye shifts occurred during testing, Additional head turns occurred during testing Visual Cannon: No apparent deficits Perception: Perception Inattention/Neglect: Appears intact Initiation: Appears intact Motor Planning: Appears intact (min motor planning difiicits with reaching tasks.) Skin: Allevyn in place. Please refer to nursing skin assessment for further details. Sensation: B UE light touch localization intact Hand Function: Hand Function Gross Grasp: Impaired (L UE) Coordination: Coordination Coordination: (finger to nose and opposition intact R UE. opposition slow pace L UE; finger to noseL UE mod-max impaired slow speed and difficulty with reaching.) Balance: Static sitting balance Static Sitting Balance Static Sitting-Level of Assistance: Independent Dynamic sitting balance Dynamic Sitting Balance Dynamic Sitting-Level of Assistance: Independent Static standing balance Static Standing Balance Static Standing-Level of Assistance: Supervision or touching assistance Dynamic standing balance Dynamic Standing Balance Dynamic Standing-Level of Assistance: Supervision or touching assistance UPPER EXTREMITY ASSESSMENTS RUE Assessment RUE Assessment: Within Functional Limits LUE Assessment LUE Assessment: Impaired LUE Assessment Comments: (2+/5 L UE shoulder flexion) LUE Assessment Additional: (grossly; 3-/5 elbow and wrist, 2+/5 shoulder) LUE AROM (degrees) L Shoulder Flexion 0-170: 90 L Shoulder ABduction 0-160/180: 80 L Elbow Flexion/Extension 0-135-150: 20-123 L Wrist Flexion 0-80: 40 L Wrist Extension 0-70: 49 STANDARDIZED TESTS Right Hand Strength - Crm Administrator (lbs) Handle Setting 2: 78 lbs Left Hand Strength - Crm Administrator (lbs) Handle Setting 2: 15 lbs Procedures/Interventions: ADLs/IADLs Self Care/Home Management (ADLs) Time Entry: 60 Pt in elevated supine upon arrival, agreeable to shower. Vitals assessed see above. HOB lowered to simulate home. Supine>Sit EOB partial A for trunk uplift. Increased time to scoot toward EOB. SPTwith LBQC from bed>w/c close S. Dicussed with pt using urinal from supine as pt requires assist for bed mobility. Dicussed wearing no LB clothing to bed to increase ease for voiding, pt agreeable.Educated on use of [place] to ring or cell phone if pt needed SO, as SO sleeps in a different room. Educated on no getting OOB alone. Short distance amb from w/c across dick><walk in shower stall with close S with LBQC. Seated on tub bench pt doffed rocio with clean up A. Pt bathed mainly seated with use of hand held shower, with use of B Ues, with verbal cues for thoroughness. STS from tub bench without UE support on grab bar to simulate home shower set up, with SBA. In stand pt able to bathe buttocks with R UE, with SBA for balance and No UE support on grab bar. Once back in room STS to LBQC with S, pt retrieved 3/4 items from closet with L UE, including opening drawers, R hand utilized to retrieve shirt due to weight of shirt. Pt placed clothing on adjacentchair. Seated in w/c pt donned T shirt mod I. Pt donned LB clothing with mod I. Pt doffed bridge attacher socks and donned regular socks with mod I with increased time. End of session pt seated in w/c with chair alarm on and call [place] in reach. 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 Goals Dates: Start: 05/24/24 Goal: pt will be IND with lower body dressing AE PRN Dates: Start: 05/24/24 Expected End: 06/14/24 Outcomes Date/Time User Outcome 06/14/24 1426 Theodore Clement OT Adequate for Discharge Goal: pt will be IND with upper body dressing Dates: Start: 05/24/24 Expected End: 06/14/24 Outcomes Date/Time User Outcome 06/14/24 1426 Theodore Clement OT Adequate for Discharge Goal: pt will be IND with toilet txfer LRAD Dates: Start: 05/24/24 Expected End: 06/14/24 Outcomes Date/Time User Outcome 06/14/24 1426 Theodore Clement OT Progressing Goal: pt will ne IND with toileting tasks LRAD Dates: Start: 05/24/24 Expected End: 06/14/24 Outcomes Date/Time User Outcome 06/14/24 Megan Clement OT Progressing Goal: pt will be IND with footwear tasks AE PRN Dates: Start: 05/24/24 Expected End: 06/14/24 Outcomes Date/Time User Outcome 06/14/24 1426 Theodore Clement OT Adequate for Discharge Problem: OT Short Term Goals Dates: Start: 05/24/24 Goal: Pt will be mod assist with upper body dressing (Resolved) Dates: Start: 05/24/24 Expected End: 05/31/24 Resolved: 05/30/24 Outcomes Date/Time User Outcome 05/30/24 0844 Coby Aleman OT Completed Goal: Pt will me max assist with lower body dressing AE PRN (Resolved) Dates: Start: 05/24/24 Expected End: 05/31/24 Resolved: 05/30/24 Outcomes Date/Time User Outcome 05/30/24 0844 Coby Aleman OT Completed Goal: Pt will be max assist with footwear AE PRN (Resolved) Dates: Start: 05/24/24 Expected End: 05/31/24 Resolved: 05/30/24 Outcomes Date/Time User Outcome 05/30/24 0844 Coby Aleman OT Completed Goal: pt will be mod assist toilet txfer LRAD Dates: Start: 05/24/24 Expected End: 05/31/24 Outcomes Date/Time User Outcome 06/07/24 1423 Theodore Clement OT Progressing Goal: pt will be max assist with toileting tasks Dates: Start: 05/24/24 Expected End: 05/31/24 Outcomes Date/Time User Outcome 06/07/24 1423 Theodore Clement OT Progressing Encounter Problems (Resolved) There are no resolved problems. OT Assessment OT Assessment OT Assessment Results: Decreased ADL status, Decreased upper extremity range of motion, Decreased upper extremity strength, Decreased endurance, Decreased fine motor control, Decreased functional mobility, Decreased IADLs Prognosis: Good Evaluation/Treatment Tolerance: Patient tolerated treatment well. Pt would benefit from continued skilled OT to progress in L UE strength/ROM, dynamic balance, endurance, and IADLs as appropriate. Coordination/strength HEP provided for continued L UE NMRE until pt goes to OP OT. Education Documentation Warning Signs and Symptoms of Stroke, taught by Theodore Clement OT at 06/14/2024 8:13 AM. Learner: Patient Readiness: Acceptance Method: Explanation, Demonstration Response: Verbalizes Understanding, Demonstrated Understanding Home Safety, taught by Theodore Clement OT at 06/14/2024 8:13 AM. Learner: Patient Readiness: Acceptance Method: Explanation, Demonstration Response: Verbalizes Understanding, Demonstrated Understanding Home Modifications, taught by Theodore Clement OT at 06/14/2024 8:13 AM. Learner: Patient Readiness: Acceptance Method: Explanation, Demonstration Response: Verbalizes Understanding, Demonstrated Understanding Activity/Positioning, taught by Theodore Clement OT at 06/14/2024 8:13 AM. Learner: Patient Readiness: Acceptance Method: Explanation, Demonstration Response: Verbalizes Understanding, Demonstrated Understanding Smoking Cessation, taught by Theodore Clement OT at 06/14/2024 8:13 AM. Learner: Patient Readiness: Acceptance Method: Explanation, Demonstration Response: Verbalizes Understanding, Demonstrated Understanding Discharge Planning, taught by Theodore Clement OT at 06/14/2024 8:13 AM. Learner: Patient Readiness: Acceptance Method: Explanation, Demonstration Response: Verbalizes Understanding, Demonstrated Understanding Body Mechanics, taught by Theodore Clement OT at 06/14/2024 8:13 AM. Learner: Patient Readiness: Acceptance Method: Explanation, Demonstration Response: Verbalizes Understanding, Demonstrated Understanding ADL Training, taught by Theodore Clement OT at 06/14/2024 8:13 AM. Learner: Patient Readiness: Acceptance Method: Explanation, Demonstration Response: Verbalizes Understanding, Demonstrated Understanding Education Comments No comments found. Start/Stop Time OT Time Calculation OT Start Time: 0700 OT Stop Time: 0830 OT Time Calculation (min): 90 min Therapy Minutes: Occupational Therapy OT Individual: 90 * Wen Calles, DO - 06/13/2024 7:23 PM EST Images from the original note were not included. [facility] Daily Progress Note Patient name: Bob Han : 1950 SUBJECTIVE: Patient seen and examined at bedside today. No acute events overnight. Denies headaches, dizziness,shortness of breath, chest pain, nausea, constipation, and pain. No new concerns today. Participating in therapies: Pt and therapist completed x16 stairs with RUE on L asending rail, x2 cues for step to pattern, steadying assistance. OBJECTIVE: Vitals: 06/12/24 1525 06/13/24 0515 06/13/24 0745 06/13/24 1523 BP: 127/86 115/54 118/57 128/74 BP Location: Right arm Right arm Patient Position: Sitting Lying Sitting Pulse: 56 62 58 60 Resp: 18 18 18 16 Temp: 36.2 ??C (97.2 ??F) 36.5 ??C (97.7 ??F) 36.3 ??C (97.3 ??F) 36.7 ??C (98.1 ??F) TempSrc: Temporal Oral Oral SpO2: 100% 94% 96% 99% Physical Examination: General: Alert, in no acute cardiopulmonary distress. Mental Status: Oriented to person, place and time. Normal affect. Head: Normocephalic. Eyes: Pupils are equal, round and reactive to light. Extraocular muscles intact. Ear, Nose and Throat: Oropharynx clear, mucous membranes moist. Ears and nose without masses, lesions or deformities. Neck: Supple, Trachea midline. Respiratory: Clear to auscultation and percussion. No wheezing, rales or rhonchi. Cardiovascular: Heart sounds normal. No thrills. Regular rate and rhythm, no murmurs, rubs or gallops. Gastrointestinal: Abdomen soft, non-tender, non-distended. Normal bowel sounds. Genitourinary: No costovertebral angle tenderness. Neurologic: Cranial nerves II-XII intact. Deep tendon reflexes +2 bilaterally. Negative Hoffmans sign bilaterally. Negative clonus bilaterally. + pronation and flexion drift of the left upper extremity with left upper extremity weakness 3+/5. Left lower extremity 5 minus/5, hyperreflexia on the left side with an extensor plantar response.Sensation intact bilaterally. Skin: No rashes or lesions. No petechiae or purpura. No edema. Musculoskeletal: No cyanosis or clubbing. No gross deformities. Strength 4/5 throughout the left upper extremity. CURRENT INPATIENT MEDICATIONS: Current Facility-Administered Medications: aluminum-magnesium hydroxide-simethicone (MAALOX) 200-200-20 mg/5 mL suspension 30 mL, 30 mL, oral,q4h PRN, Wen Calles DO amLODIPine (NORVASC) tablet 5 mg, 5 mg, oral, Daily, Wen Calles DO, 5 mg at 06/13/24 0828 aspirin chewable tablet 81 mg, 81 mg, oral, Daily, Wen A Stevan, DO, 81 mg at 06/13/2428 bisacodyL (DULCOLAX) suppository 10 mg, 10 mg, rectal, Daily PRN, Wen A Stevan, DO, 10 mg at05/26/24 1348 dextrose (D50W) 50% injection 12.5 g, 12.5 g, intravenous, q15 min PRN, ERIC Carbone dextrose (D50W) 50% injection 25 g, 25 g, intravenous, q15 min PRN, ERIC Carbone dextrose 15 gram/60 mL oral solution 15 g, 15 g, oral, q15 min PRN, ERIC Carbone dextrose 15 gram/60 mL oral solution 30 g, 30 g, oral, q15 min PRN, ERIC Carbone docusate sodium (COLACE) capsule 100 mg, 100 mg, oral, BID, Wen A Stevan, DO, 100 mg at 06/13/2428 ezetimibe (ZETIA) tablet 10 mg, 10 mg, oral, Daily, Wen A Stevan, DO, 10 mg at 06/13/24827 Glucagon HCl (rDNA) injection 1 mg, 1 mg, intramuscular, Once PRN, ERIC Carbone magnesium hydroxide (MILK OF MAGNESIA) 400 mg/5 mL suspension 30 mL, 30 mL, oral, Daily PRN, Wen A Stevan, DO, 30 mL at 05/30/24 1357 nystatin (MYCOSTATIN) 100,000 unit/gram powder, , Topical, BID, Wen A Stevan, DO, Given at 06/13/2428 polyethylene glycol (MIRALAX) packet 17 g, 17 g, oral, Daily, ERIC Chisholm, 17 g at 06/13/24827 senna (SENOKOT) tablet 17.2 mg, 2 tablet, oral, Nightly, ERIC Chisholm, 17.2 mg at 06/12/242011 LABS: Lab Results Component Value Date WBC 7.9 06/07/2024 RBC 4.70 06/07/2024 HGB 13.6 06/07/2024 HCT 41.2 (L) 06/07/2024 MCV 87.5 06/07/2024 MCHC 33.0 06/07/2024 RDW 12.8 06/07/2024 PLT 384 06/07/2024 MPV 8.5 06/07/2024 NRBC 0.0 06/07/2024 DIFF Lab Results Component Value Date LYMPHOPCT 31.2 05/24/2024 NEUTROABS 3.78 05/24/2024 LYMPHSABS 2.33 05/24/2024 MONOABS 1.08 (H) 05/24/2024 EOSABS 0.15 05/24/2024 BASOSABS 0.08 05/24/2024 IMMGRANABS 0.04 (H) 05/24/2024 RETIC No results found for: RETIC , RETICCTPCT Lab Results Component Value Date NA 134 06/07/2024 K 4.4 06/07/2024 CL 104 06/07/2024 CO2 28 06/07/2024 GLUCOSE 89 06/07/2024 BUN 20 06/07/2024 CREATININE 0.78 06/07/2024 CALCIUM 9.4 06/07/2024 PROT 6.8 06/07/2024 ALBUMIN 2.9 (L) 06/07/2024 BILITOT 0.5 06/07/2024 AST 33 06/07/2024 ALT 51 06/07/2024 ALKPHOS 114 06/07/2024 EGFR 94 06/07/2024 IMPRESSION & PLAN: #Impaired mobility and self-care -Secondary to CVA -Continue with PT/OT/speech #Acute ischmic CVA #Left hemiparesis -Aspirin 81 mg daily -Ezetimibe 10 mg daily -continue therapies -f/u Neurology after discharge #Hypertension -Amlodipine 5 mg daily #DMT2 -A1C 5.3 -Diabetic diet -ISS discontinued given that fingersticks controlled #Lumbar spinal stenosis -will plan for follow up with [facility] after discharge for further management #Insomnia -Melatonin 9mg QHS PRN discontinued on 06/03 given that medication causes fatigue the following day #Hyperammonemia, resolved -Present at [facility] on 05/17 however resolved #UTI -Amoxicillin 250mg Q8H x10 days (end date: 06/07) d/c on 2/11 and transitioned to Ceftin 250 mg BID x 7 days (completed on 06/07) #Bowel management -Colace 100mg BID -Miralax 17gm daily -Senna 2 tabs QHS DVT ppx: Continue Aspirin and ambulation with therapies as tolerated. SCDs to BLE when in bed. * Mirlande Aquino, PT - 06/13/2024 2:57 PM EST [facility] Physical Therapy Treatment Note 06/13/2024 Patient: Bob Han : 1950 Age: 74 y.o. Gender: male Primary Language: Argentine Diagnosis: CVA (cerebral vascular accident) (CMS/HCC) Past Medical History: Diagnosis Date HLD (hyperlipidemia) HTN (hypertension) Migraines Spinal stenosis History reviewed. No pertinent surgical history. Allergies: is allergic to acetaminophen, atorvastatin, glipizide, and rosuvastatin. Precautions: Medical Precautions: Fall Risk Safety Interventions: Call [place] within reach, ID band on RUE Weight Bearing Status: Full LUE Weight Bearing Status: Full RLE Weight Bearing Status: Full LLE Weight Bearing Status: Full SUBJECTIVE Pt report: I feel good Pain:0/10 OBJECTIVE General Observation: Seated in WC agreeable to PT session with Larry jung. Procedure/Treatment: Neuromuscular Reeducation: Balance/Neuromuscular Re-Education Neuromuscular Re-Education Time Entry: 90 Pt seated in WC with Larry present, pts significant other. Pt dep brought down to therapy gym in WC. Larry able to provide appropriate assistance for ambulation 2x30ft with LBQC, appropriate cues. Larry able to appropriately assist and cue pt up and down x2 platform steps with LBQC. Pt and therapist ambulating x80ft with RW steadying assistance, education provided on recommendation of LBQC d/t pts LLE and LUE deficits with use of RW, pt with narrow gait, pt occasionally catching LLE on RLE during ambulation. Larry verbalized understanding. Pt and therapist completed x16 stairs with RUE on L as ending rail, x2 cues for step to pattern, steadying assistance. Larry able to provide appropriate assistance up x16 stairs with pt, Larry able to appropriate cue pt. Pt dep. Transported to car in WC,pt needing steadying assistance for car transfer with LQBC, min-A for LE when getting out of car for LLE. Larry declining trial of car transfer, verbalized he felt comfortable providing assistance. Larry and pt ambulating on carpet, larry able to provide appropriate assistance with LBQC, and appropriately cue pt to simulate home environment. Therapist, pt and larry reviewing d/c recommendations. Therapist recommending initial SUP upon d/c for all mobility. Recommending WC level for community, LBQC for ambulation in the house. Recommending OP Physical Therapy. Education provided if pt were to fall at home call 911, Educated on BE FAST, pt able to recall 3/6 BE FAST signs and symptoms of stroke. Educated Larry on BE FAST signs and symptoms of stroke. Larry verbalized understanding. Larry verbalized to this service writer advisor he felt comfortable providing recommended level of assistance for d/c home. Pt left seated in WC, call [place] in reach, chair alarm on, All needs met. Therapist updating OSCAR Farr,larry gomez to assist pt to bathroom. Larry asking this service writer advisor to review medications, therapist communicating with OSCAR Farr of Larry's request to review medications, Will RN Verbalized understanding. Education: Education Documentation Mobility Training, taught by Mirlande Aquino, PT at 06/13/2024 3:41 PM. Learner: Significant Other, Patient Readiness: Acceptance Method: Explanation, Demonstration Response: Verbalizes Understanding, Demonstrated Understanding Comment: d/c instructions, recommended DME, family training Education Comments No comments found. ASSESSMENT Larry able to assist pt in all aspects of mobility for d/c home. Larry purchased LBQC for pt. PT Assessment PT Assessment Results: Decreased strength, Decreased range of motion, Decreased endurance, Impairedbalance, Impaired gait Prognosis: Good Equipment: Wheelchair, LBQC Plan of Care Plan Treatment/Interventions: Functional transfer training, LE strengthening/ROM, Endurance training, Cognitive reorientation, Bed mobility, Gait training, Balance training, Continued evaluation, Compensatory technique education PT Plan: Skilled PT PT Frequency: 5-7 days per week PT Duration of Sessions: 60-90 min per session PT Treatments per day: 1 time per day PT Discharge Recommendations: Other (Comment) (TBD) Problems/Goals Goals: Encounter Problems Encounter Problems (Active) Template: Physical Therapy 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 railing Dates: Start: 05/24/24 Outcomes Date/Time User Outcome 06/10/24 1311 Mirlande Aquino PT Progressing Goal: mod-I bed mobility Dates: Start: 05/24/24 Outcomes Date/Time User Outcome 06/10/24 131Paige Aquino PT Progressing Goal: mod-I transfers Dates: Start: 05/24/24 Outcomes Date/Time User Outcome 06/10/24 1311 Mirlande Aquino PT Progressing Problem: PT Short Term Goals Dates: Start: 05/24/24 Goal: SUP bed mobility Dates: Start: 05/24/24 Outcomes Date/Time User Outcome 06/10/24 1311 Mirlande Aquino PT Progressing Goal: partial A transfers LRAD (Resolved) Dates: Start: 05/24/24 Resolved: 05/31/24 Outcomes Date/Time User Outcome 05/31/24 1137 Mirlande Aquino PT Completed Goal: partial A x50ft LRAD ambulation (Resolved) Dates: Start: 05/24/24 Resolved: 06/10/24 Outcomes Date/Time User Outcome 06/10/24 1311 Mirlande Aquino PT Completed Goal: partial A x4 stairs (Resolved) Dates: Start: 05/24/24 Resolved: 05/31/24 Outcomes Date/Time User Outcome 05/31/24 113Matthew Aquino PT Completed Encounter Problems (Resolved) There are no resolved problems. Session Start/Stop Time: 1230 1400 Therapy Minutes Physical Therapy PT Individual: 90 * LORNE Romero - 06/13/2024 2:00 PM EST Speech Language Pathology Speech Language Pathology Treatment Subjective [employer]ER Start Time: 1400 B[employer] HAND[employer]ER Stop Time: 1440 [employer] Time Calculation (min): 40 min Subjective: Spouse present for session. Cooperative and pleasant. Vitals/Pain Pt did not report pain. Objective General Visit Info General Family/Caregiver Present: Yes Treatment Cognitive Skills Therapeutic Interventions Cognitive Skills Direct Contact Time Entry: 40 Memory: With RN, reviewed home medications and provided Pt and spouse with medication log for AM and PM meds. Discussed med log as external memory strategy. Verbalized understanding. Problem Solving: Pt expressing frustration with navigating phone to locate spouse's contact info and locate phone deyvi on home screen: required x2 clinician models. Given min A, identified solution tolocating phone deyvi. Moved apps to separate locations on screen. Pt able to locate indp x2. Demonstrate understanding using teachback method. Other Cognitive Skills Activity: Pt tasked with generating 1-2 skills learned in PT/OT and how he will apply in home setting: Pt generated 'safety' and 'patience' for PT. Stated he will plan ahead oftime if he will be home alone, for example planning food, location of TV remote and contact info for spouse. Discussed how planning necessary items ahead of time will promote safety when home alone. Pt stated he will also complete tasks at a slower rate. For OT, Pt stated safe transfer oob given min verbal cues. Pt stated he will keep his cane next to his bed. Given min verbal cues, stated reasonfor using cane vs walker (ie to slow down). Pt indp stated 2 memory compensatory strategies learnedin ST and how he will apply in home setting. Comments Comments: Plan for d/c assessment tomorrow. Assessment/Plan [employer]ER Assessment Evaluation/Treatment Tolerance: Patient tolerated treatment well Plan Treatment/Interventions: Cognitive linguistic functioning B[employer] HAND[employer]ER Plan: Skilled BULK FLUIDS HANDLER B[employer] HANDLER Frequency: 5-7 days per week [employer]ER Duration of Sessions: 30-60 min per session [employer]ER Treatments per day: 1 time per day B[employer]ER - Evaluation Status: Complete B[employer] HAND[employer]ER Discharge Recommendations: Outpatient B[employer]ER B[employer]ER - Next Appointment: 06/14/24 Goals Encounter Problems Encounter Problems (Active) Template: Speech Therapy Problem: BULK FLU[employer] HANDLER Group Home Goals Dates: Start: 05/24/24 Goal: Pt will improve cognitive linguistic skills to maximize indp for safe d/c back to community. Dates: Start: 05/24/24 Expected End: 06/14/24 Outcomes Date/Time User Outcome 06/08/24 8688 LORNE Romero Progressing Problem: BULK FLUIDS HANDLER Short Term Goals Dates: Start: 05/24/24 Goal: Pt will participate in additional cognitive linguistic assessment. (Resolved) Dates: Start: 05/24/24 Expected End: 05/27/24 Resolved: 06/01/24 Outcomes Date/Time User Outcome 06/01/24 1227 LORNE Bach Completed Goal: Pt will improve immediate and delayed recall of functional information to 80% accuracy given mod A for strategies. (Resolved) Dates: Start: 05/24/24 Expected End: 05/31/24 Resolved: 06/04/24 Outcomes Date/Time User Outcome 06/04/24 1400 LORNE Bach Completed Goal: Pt will participate in basic convergent/divergent categorization tasks at 80% accuracy given mod A. (Resolved) Dates: Start: 05/24/24 Expected End: 05/31/24 Resolved: 06/04/24 Outcomes Date/Time User Outcome 06/04/24 LORNE Chery Completed Goal: Pt will participate in basic mental flexibility/working memory tasks at 80% accuracy given mod A. (Resolved) Dates: Start: 05/24/24 Expected End: 06/07/24 Resolved: 06/09/24 Outcomes Date/Time User Outcome 06/09/24 1312 LORNE Bach Completed Goal: Pt will complete functional tasks targeting executive functioning skills (planning, organization, mental flexibility) at 80% accuracy given mod A. Dates: Start: 05/25/24 Expected End: 06/15/24 Description: Outcomes Date/Time User Outcome 06/10/24 1321 LORNE Bach Progressing Goal: Pt will complete sequencing tasks w/ 90% accuracy given mod A (Resolved) Dates: Start: 05/26/24 Expected End: 06/08/24 Resolved: 06/09/24 Description: Outcomes Date/Time User Outcome 06/09/24 1312 LORNE Bach Completed Goal: Pt will be able to answer problem-solving/reasoning tasks related to safety and ADLs w/ 90% accuracy given min A (Resolved) Dates: Start: 05/26/24 Expected End: 06/02/24 Resolved: 06/04/24 Description: Outcomes Date/Time User Outcome 06/04/24 1400 LORNE Bach Completed Goal: Pt will be able to identify 2 post-stroke deficits given min A (Resolved) Dates: Start: 05/27/24 Expected End: 06/03/24 Resolved: 06/04/24 Description: Outcomes Date/Time User Outcome 06/04/24 1400 LORNE Bach Completed Goal: Pt will improve immediate and delayed recall of functional information to 80% accuracy given min A for encoding and indep. for retrieval Dates: Start: 06/04/24 Expected End: 06/11/24 Description: Outcomes Date/Time User Outcome 06/09/24 1326 LORNE Bach Progressing Goal: Pt will participate in higher level naming tasks w/ 90% accuracy given min A Dates: Start: 06/04/24 Expected End: 06/11/24 Description: Outcomes Date/Time User Outcome 06/09/24 LORNE Pandya Not Progressing Goal: Pt will improve attention w/ mod-higher level visual and/or auditory tasks w/ 80% accuracy given min A Dates: Start: 06/04/24 Expected End: 06/11/24 Description: Outcomes Date/Time User Outcome 06/10/24 1321 LORNE Bach Progressing Goal: Pt will complete functional problem-solving/calculations tasks w/ 80% accuracy given mod A Dates: Start: 06/04/24 Expected End: 06/11/24 Description: Outcomes Date/Time User Outcome 06/07/24 1047 LORNE Romero Progressing Goal: Pt will complete sequencing tasks w/ 90% accuracy given min A Dates: Start: 06/09/24 Expected End: 06/16/24 Description: Outcomes Date/Time User Outcome 06/10/24 132LORNE Espinoza Progressing Encounter Problems (Resolved) There are no resolved problems. Education Documentation Cognition, taught by LORNE Romero at 06/13/2024 2:00 PM. Learner: Significant Other, Patient Readiness: Eager Method: Explanation, Handout, Demonstration Response: Verbalizes Understanding, Demonstrated Understanding Comment: Use of med log as external memory strategy, safety awareness at home Education Comments No comments found. Cosigned by LORNE Rodriguez at 06/13/2024 4:33 PM EST Associated attestation - Corina Curran SLP - 06/13/2024 4:33 PM EST I attest that I, Coby Curran M.S.,[facility]-B[employer]ER, was physically involved in the ongoing assessment, decision making, and interventions provided during today's patient care session. I have reviewed all documentation for today's 06/13/24, entered by Speech Therapy Fellow, Jana Cesar, and further attest that it is an accurate clinical record of today's encounter, including accurate and appropriatecharges. * Theodore Clement, OT - 06/13/2024 10:00 AM EST [facility] Occupational Therapy Treatment Note 06/13/24 Patient: Bob Han : 1950 Age: 74 y.o. Gender: male Diagnosis: CVA (cerebral vascular accident) ([facility]/HCC) Primary Rehab (Etiologic) Diagnosis: Patient Active Problem List Diagnosis CVA (cerebral vascular accident) ([facility]) PMH: Past Medical History: Diagnosis Date HLD (hyperlipidemia) HTN (hypertension) Migraines Spinal stenosis PSH: History reviewed. No pertinent surgical history. Allergies: is allergic to acetaminophen, atorvastatin, glipizide, and rosuvastatin. Precautions: Precautions Medical Precautions: Fall Risk Safety Interventions: Call [place] within reach RUE Weight Bearing Status: Full LUE Weight Bearing Status: Full RLE Weight Bearing Status: Full LLE Weight Bearing Status: Full Subjective: My arm is doing better Procedures/Interventions: ADLs/IADLs Self Care/Home Management (ADLs) Time Entry: 60 Pt seated in w/c upon arrival, with SO Larry present for observation/training. Pt and larry updatedat insurance did not cover toilet safety frame and tub bench. Larry reporting that he plans to purchase both items, and has handouts that were provided in previous session. STS from w/c to retreiveclothing from closet with S, retrieving clothing with R UE and transporting back to chair in L UE. Once seated pt donned shirt with mod I. Pt noted to have some residual bowel, Dep for posterior hygiene in stand for thoroughness, S for balance with R UE on QC. Pt donned shorts with S in stand to hike over hips, Larry assisting over L hip. Pt doffed/donned B socks with increased time and cues for one handed technique. Dicussed positioning for oral hygiene at home, pt questioning if he would have the tolerance to stand at sink to perform oral hygiene, especially at night due to fatigue. Dicussed set up of basin/oral hygiene items at table or while seated, larry agreeable. Recommending urinal use at night time. Larry reporting that pt and him sleep in separate bedrooms. Pt educated on no getting up in the middle of the night to use bathroom alone, recommending urinal use at night time, if Peter cannot assist with mobility. Educated on option of purchasing commode and placing next to bedside at night and over toilet during that day. Larry questioning pt's ability to perform meal prep tasks. In ADL kitchen pt tasked with making cream of wheat in microwave. Larry reporting that there is a chair in kitchen for pt to be able to sit to take rest breaks close by. Short distance amb at [facility] tocounter top S. Pt retrieved items from over head cabinets close S. Pt educated on transporting items to sink via sliding on counter top. Pt educated on not utilizing L UE to transport items in L UE at [facility] at this time due to decreased bridge attacher strength and dexterity. Pt filled bowl with water and placed into microwave. Sated rest break taken. Recommending to pt and Larry that Larry be present for any mobility upon d/c especially in kitchen. Larry reporting that he will be in charge of meal prep for the first couple pf weeks. Education provided on making meal prep goals with outpatient occupational therapy. Larry questioning about accessing places in community such as restaurants. Recommending w/c initially for accessing community amenities. Pt retrieved bowl of cream of wheat from microwave and placed on counter top. Assist to transport to trash. Reinforced need for assistance with transporting items. Reinforced S for toileting, dressing, and bathing upon return home. Balance/Neuromuscular Re-Education Neuromuscular Re-Education Time Entry: 30 Seated at table top in gym pt engaged in task to target B UE coordination, L lateral pinch, and L coordination/strength. Initially pt tasked with sustaining L lateral pinch on target board, and placing clothes pins with R UE. As clothes pins placed, weight of board increasing difficulty of sustained lateral pinch. Transitioned to pt assuming pinch on clothes pin with L hand, with therapist or R hand positioning clothes pin for pre grasp. Pt able to assume lateral pinch occasionally, however occasional hand over hand for pinching. Rest break taken throughout for fatigue. Educated that HEP could be provided for pt upon d/c for continuation at home in prep for Outpatient therapy. Pt dep wheeled back to room. Pt seated in w/c with chair alarm on, and call [place] in reach with Larry present. Larry or pt with no further questions at this time. OT Assessment OT Assessment OT Assessment Results: Decreased ADL status, Decreased upper extremity range of motion, Decreased upper extremity strength, Decreased endurance, Decreased fine motor control, Decreased functional mobility, Decreased gross motor control Prognosis: Good Evaluation/Treatment Tolerance: Patient tolerated treatment well, progressing toward goals. Larry or pt with no further questions regarding d/c. Larry reporting he plans to purchase recommended bathroom DME. 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 Goals Dates: Start: 05/24/24 Goal: pt will be IND with lower body dressing AE PRN Dates: Start: 05/24/24 Expected End: 06/14/24 Goal: pt will be IND with upper body dressing Dates: Start: 05/24/24 Expected End: 06/14/24 Goal: pt will be IND with toilet txfer LRAD Dates: Start: 05/24/24 Expected End: 06/14/24 Goal: pt will ne IND with toileting tasks LRAD Dates: Start: 05/24/24 Expected End: 06/14/24 Goal: pt will be IND with footwear tasks AE PRN Dates: Start: 05/24/24 Expected End: 06/14/24 Problem: OT Short Term Goals Dates: Start: 05/24/24 Goal: Pt will be mod assist with upper body dressing (Resolved) Dates: Start: 05/24/24 Expected End: 05/31/24 Resolved: 05/30/24 Outcomes Date/Time User Outcome 05/30/24 0844 Coby Aleman OT Completed Goal: Pt will me max assist with lower body dressing AE PRN (Resolved) Dates: Start: 05/24/24 Expected End: 05/31/24 Resolved: 05/30/24 Outcomes Date/Time User Outcome 05/30/24 0844 Coby Aleman OT Completed Goal: Pt will be max assist with footwear AE PRN (Resolved) Dates: Start: 05/24/24 Expected End: 05/31/24 Resolved: 05/30/24 Outcomes Date/Time User Outcome 05/30/24 0844 Coby Aleman OT Completed Goal: pt will be mod assist toilet txfer LRAD Dates: Start: 05/24/24 Expected End: 05/31/24 Outcomes Date/Time User Outcome 06/07/24 1423 Theodore Clement OT Progressing Goal: pt will be max assist with toileting tasks Dates: Start: 05/24/24 Expected End: 05/31/24 Outcomes Date/Time User Outcome 06/07/24 1423 Theodore Clement OT Progressing Encounter Problems (Resolved) There are no resolved problems. Education Documentation Caregiver Support, taught by Theodore Clement OT at 06/13/2024 2:04 PM. Learner: Significant Other, Patient Readiness: Acceptance Method: Explanation, Demonstration Response: Verbalizes Understanding, Demonstrated Understanding Home Safety, taught by Theodore Clement OT at 06/13/2024 2:04 PM. Learner: Patient, Significant Other Readiness: Acceptance Method: Explanation, Demonstration Response: Verbalizes Understanding, Demonstrated Understanding Home Modifications, taught by Theodore Clement OT at 06/13/2024 2:04 PM. Learner: Significant Other, Patient Readiness: Acceptance Method: Explanation, Demonstration Response: Verbalizes Understanding, Demonstrated Understanding Insurance Coverage, taught by Theodore Clement OT at 06/13/2024 2:04 PM. Learner: Significant Other, Patient Readiness: Acceptance Method: Explanation, Demonstration Response: Verbalizes Understanding, Demonstrated Understanding Activity/Positioning, taught by Theodore Clement OT at 06/13/2024 2:04 PM. Learner: Significant Other, Patient Readiness: Acceptance Method: Explanation, Demonstration Response: Verbalizes Understanding, Demonstrated Understanding Discharge Planning, taught by Theodore Clement OT at 06/13/2024 2:04 PM. Learner: Significant Other, Patient Readiness: Acceptance Method: Explanation, Demonstration Response: Verbalizes Understanding, Demonstrated Understanding Body Mechanics, taught by Theodore Clement OT at 06/13/2024 2:04 PM. Learner: Significant Other, Patient Readiness: Acceptance Method: Explanation, Demonstration Response: Verbalizes Understanding, Demonstrated Understanding ADL Training, taught by Theodore Clement OT at 06/13/2024 2:04 PM. Learner: Significant Other, Patient Readiness: Acceptance Method: Explanation, Demonstration Response: Verbalizes Understanding, Demonstrated Understanding Education Comments No comments found. Start/Stop Time OT Time Calculation OT Start Time: 1000 OT Stop Time: 1130 OT Time Calculation (min): 90 min Therapy Minutes: Occupational Therapy OT Individual: 90 * Gay Hinesuma - 06/12/2024 2:53 PM EST SPIRITUAL CARE Date/Time:06/12/24 at 2:53 PM EST Type of Visit:Referral Reason for Visit: Spiritual/Emotional Support Time Spent: 20 Minutes Location: [facility]/404-1 Sacramental Encounters: Sacrament of Sick-Anointing: Anointed Spiritual Distress Assessment: Spiritual Distress Assessment at beginning of visit Meaning - Overall Life Balance: No evidence of unmet spiritual need Transcendence: No evidence of unmet spiritual need Values - Acknowledgement: No evidence of unmet spiritual need Values - Control: No evidence of unmet spiritual need Psycho-Social Identity: No evidence of unmet spiritual need SDAT Beginning of Visit Average Score: 0 Spiritual Distress Assessment at end of visit Meaning - Overall Life Balance: No evidence of unmet spiritual need Transcendence: No evidence of unmet spiritual need Values - Acknowledgement: No evidence of unmet spiritual need Values - Control: No evidence of unmet spiritual need Psycho-Social Identity: No evidence of unmet spiritual need SDAT End of Visit Average Score: 0 Spiritual Assessment/Distress Spiritual Care Assessment: Assessment: Referral to visit Bob per his desire to receive Holy communion. He was resting in the chair at the time of visit. Was observed getting emotion while expressing how not attending Holy Mass physically in the [place] saddens him. Voiced strong family support and love. Voiced progress and improvement. Thankful for the Holy communion received and for the visit. Intervention: NE Spiritual Care Interventions : provided support, explored hope, listened empathically, and provided prayer Outcomes: expressed gratitude and expressed peace Plan of Care: Visit as needed *Reference: Spiritual Distress Assessment Tool: The SDAT is a clinical tool used by chaplains to identify unmet spiritual and emotional needs that can impact Goals of Care in the following categories: Spiritual Distress Assessment Legend Spiritual Needs Related Questions Meaning Are you having difficulties coping with what is happening to your now? Does your hospitalization have any repercussions on the way you live usually? Transcendence Do you have a particular restorationism, sabine, or spirituality? Is your restorationism/spirituality/sabine challenged by what is happening to you now? Values Do you think that the health professionals caring for you know you well enough? Do you feel that you are participating in the decisions made about your care? Psycho-Social Identity Do you have any worries or difficulties regarding your family or other persons close to you? Do you feel lonely? Do you have links to your sabine community? SCALE 0= no evidence of unmet spiritual needs 1= some evidence of unmet spiritual needs 2= substantial evidence of unmet spiritual needs 3= evidence of severe unmet spiritual needs * Wen Kang - 06/11/2024 3:26 PM EST SPIRITUAL CARE Date/Time:06/11/24 at 3:27 PM EST Type of Visit:Oil Painter Rounding Reason for Visit: Spiritual/Emotional Support Time Spent: 18 Minutes Location: [facility]404-1 Spiritual Distress Assessment: Spiritual Distress Assessment at beginning of visit Meaning - Overall Life Balance: No evidence of unmet spiritual need Transcendence: No evidence of unmet spiritual need Values - Acknowledgement: No evidence of unmet spiritual need Values - Control: No evidence of unmet spiritual need Psycho-Social Identity: No evidence of unmet spiritual need SDAT Beginning of Visit Average Score: 0 Spiritual Distress Assessment at end of visit Meaning - Overall Life Balance: No evidence of unmet spiritual need Transcendence: No evidence of unmet spiritual need Values - Acknowledgement: No evidence of unmet spiritual need Values - Control: No evidence of unmet spiritual need Psycho-Social Identity: No evidence of unmet spiritual need SDAT End of Visit Average Score: 0 Spiritual Assessment/Distress Spiritual Care Assessment: Assessment: Oil Painter initiated visit. Pt was calm and showed no evidence of emotional or spiritual distress. Pt said he was unable to attend [facility] today because a visitor was on the way. During the visit, pt's partner arrived. Pt became reflective as he spoke to sharepoint designer developer. He talked about his historic home in [place] and his love of the area's history. 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 Pt became tearful as he shared his story. He said he is not used to this, and he looks forward to being back at home and connecting with his beloved town and neighborhood. Pt requested Jewish Communion, and a request has been placed with Father Gay for 06/12/24. Intervention: NE Spiritual Care Interventions : explored emotional needs and resources, explored relational needsand resources, explored spiritual needs and resources, facilitate storytelling, cultivated a relationship of care and support, listened empathically, and provided religion resource; placed request for pt to receive communion on 06/12/24. Outcomes: expressed ultimate hope and identified meaningful connections Plan of Care: Follow up Lo Curiel *Reference: Spiritual Distress Assessment Tool: The SDAT is a clinical tool used by chaplains to identify unmet spiritual and emotional needs that can impact Goals of Care in the following categories: Spiritual Distress Assessment Legend Spiritual Needs Related Questions Meaning Are you having difficulties coping with what is happening to your now? Does your hospitalization have any repercussions on the way you live usually? Transcendence Do you have a particular restorationism, sabine, or spirituality? Is your restorationism/spirituality/sabine challenged by what is happening to you now? Values Do you think that the health professionals caring for you know you well enough? Do you feel that you are participating in the decisions made about your care? Psycho-Social Identity Do you have any worries or difficulties regarding your family or other persons close to you? Do you feel lonely? Do you have links to your sabine community? SCALE 0= no evidence of unmet spiritual needs 1= some evidence of unmet spiritual needs 2= substantial evidence of unmet spiritual needs 3= evidence of severe unmet spiritual needs * Mirlande Aquino, PT - 06/10/2024 3:55 PM EST Images from the original note were not included. [facility] [address] [place] [id number] Dept: [phone] Patient: Bob Han : 1950 Age: 74 y.o. Gender: male Room Number: 404/404-1 Diagnosis: CVA (cerebral vascular accident) (CMS/[facility]) ICD-10-CM ICD-9-CM 1. Cerebrovascular accident (CVA), unspecified mechanism (CMS/HCC) I63.9 434.91 Ambulatory referralto Physical Therapy and Athletic Training Ambulatory referral to Occupational Therapy Ambulatory referral to Speech Therapy Past Medical History: Diagnosis Date HLD (hyperlipidemia) HTN (hypertension) Migraines Spinal stenosis History reviewed. No pertinent surgical history. Allergies: is allergic to acetaminophen, atorvastatin, glipizide, and rosuvastatin. Precautions: Medical Precautions: Fall Risk Safety Interventions: Call [place] within reach RUE Weight Bearing Status: Full LUE Weight Bearing Status: Full RLE Weight Bearing Status: Full LLE Weight Bearing Status: Full Patient presenting to IRF with . Patient to benefit from use of wheelchair upon discharge from thislevel of care to navigate household/community distances and complete ADLs upon discharge from this level of care. Patient is unable to safely ambulate household or community level distances independently with no device, axillary crutches, single point cane, quad cane, rolling walker or rollator. Patient to benefit from 18 inch wide wheelchair, with elevating leg rests, removable arm rests , gel-foam cushion , and anti-tippers . * Fanny Boyd, BULK FLUIDS HANDLER - 06/10/2024 1:22 PM EST Speech Language Pathology Speech Language Pathology Treatment Subjective BULK FLUIDS HANDLER Start Time: 1200 BULK FLUIDS HANDLER Stop Time: 1230 BULK FLUIDS HANDLER Time Calculation (min): 30 min Subjective: Pt was alert and sitting upright in wheelchair for the session. Pt was pleasant and agreeable to session. Objective General Visit Info General Family/Caregiver Present: No Treatment Cognitive Skills Therapeutic Interventions Cognitive Skills Direct Contact Time Entry: 30 Memory: Pt engaged in a conversation about memory strategies to use at home to aid w/ recall. Pt reported that he wanted to use his phone calendar to manage appts but was unble to indep. do it. Pt was provided max A and a visual handout of the steps to put an appt in his phone and was able to put in a mock appt w/ a reminder given max A. Pt was tasked w/ putting his d/c date into his phone just using the visual instructions and was able to complete given min A. Pt was encouraged to set reminders in advance of appt to give him time to get ready for appt prior to leaving. Pt was provided education about use of alarm deyvi and how to add labels and repetitions to alarms to increase recall. Pt was receptive to use of strateiges and recommendations. Assessment/Plan BULK FLUIDS HANDLER Assessment BULK FLUIDS HANDLER Assessment Results: Cognitive impairments Evaluation/Treatment Tolerance: Patient tolerated treatment well Plan Treatment/Interventions: Cognitive linguistic functioning BULK FLUIDS HANDLER Plan: Skilled BULK FLUIDS HANDLER BULK FLUIDS HANDLER Frequency: 5-7 days per week BULK FLUIDS HANDLER Duration of Sessions: 30-60 min per session Goals Encounter Problems Encounter Problems (Active) Template: Speech Therapy Problem: BULK FLUIDS HANDLER Group Home Goals Dates: Start: 05/24/24 Goal: Pt will improve cognitive linguistic skills to maximize indp for safe d/c back to community. Dates: Start: 05/24/24 Expected End: 06/14/24 Outcomes Date/Time User Outcome 06/08/24 1616 LORNE Romero Progressing Problem: BULK FLUIDS HANDLER Short Term Goals Dates: Start: 05/24/24 Goal: Pt will participate in additional cognitive linguistic assessment. (Resolved) Dates: Start: 05/24/24 Expected End: 05/27/24 Resolved: 06/01/24 Outcomes Date/Time User Outcome 06/01/24 1227 LORNE Bach Completed Goal: Pt will improve immediate and delayed recall of functional information to 80% accuracy given mod A for strategies. (Resolved) Dates: Start: 05/24/24 Expected End: 05/31/24 Resolved: 06/04/24 Outcomes Date/Time User Outcome 06/04/24 1400 LORNE Bach Completed Goal: Pt will participate in basic convergent/divergent categorization tasks at 80% accuracy given mod A. (Resolved) Dates: Start: 05/24/24 Expected End: 05/31/24 Resolved: 06/04/24 Outcomes Date/Time User Outcome 06/04/24 1400 LORNE aBch Completed Goal: Pt will participate in basic mental flexibility/working memory tasks at 80% accuracy given mod A. (Resolved) Dates: Start: 05/24/24 Expected End: 06/07/24 Resolved: 06/09/24 Outcomes Date/Time User Outcome 06/09/24 1312 LORNE Bach Completed Goal: Pt will complete functional tasks targeting executive functioning skills (planning, organization, mental flexibility) at 80% accuracy given mod A. Dates: Start: 05/25/24 Expected End: 06/15/24 Description: Outcomes Date/Time User Outcome 06/10/24 1321 LORNE Bach Progressing Goal: Pt will complete sequencing tasks w/ 90% accuracy given mod A (Resolved) Dates: Start: 05/26/24 Expected End: 06/08/24 Resolved: 06/09/24 Description: Outcomes Date/Time User Outcome 06/09/24 1312 LORNE Bach Completed Goal: Pt will be able to answer problem-solving/reasoning tasks related to safety and ADLs w/ 90% accuracy given min A (Resolved) Dates: Start: 05/26/24 Expected End: 06/02/24 Resolved: 06/04/24 Description: Outcomes Date/Time User Outcome 06/04/24 1400 LORNE Bach Completed Goal: Pt will be able to identify 2 post-stroke deficits given min A (Resolved) Dates: Start: 05/27/24 Expected End: 06/03/24 Resolved: 06/04/24 Description: Outcomes Date/Time User Outcome 06/04/24 1400 LORNE Bach Completed Goal: Pt will improve immediate and delayed recall of functional information to 80% accuracy given min A for encoding and indep. for retrieval Dates: Start: 06/04/24 Expected End: 06/11/24 Description: Outcomes Date/Time User Outcome 06/09/24 1326 LORNE Bach Progressing Goal: Pt will participate in higher level naming tasks w/ 90% accuracy given min A Dates: Start: 06/04/24 Expected End: 06/11/24 Description: Outcomes Date/Time User Outcome 06/09/24 1326 LORNE Bach Not Progressing Goal: Pt will improve attention w/ mod-higher level visual and/or auditory tasks w/ 80% accuracy given min A Dates: Start: 06/04/24 Expected End: 06/11/24 Description: Outcomes Date/Time User Outcome 06/10/24 1321 LORNE Bach Progressing Goal: Pt will complete functional problem-solving/calculations tasks w/ 80% accuracy given mod A Dates: Start: 06/04/24 Expected End: 06/11/24 Description: Outcomes Date/Time User Outcome 06/07/24 1047 LORNE Romero Progressing Goal: Pt will complete sequencing tasks w/ 90% accuracy given min A Dates: Start: 06/09/24 Expected End: 06/16/24 Description: Outcomes Date/Time User Outcome 06/10/24 1321 LORNE Bach Progressing Encounter Problems (Resolved) There are no resolved problems. Education Documentation Cognition, taught by LORNE Bach at 06/10/2024 1:22 PM. Learner: Patient Readiness: Acceptance Method: Explanation, Handout Response: Verbalizes Understanding Education Comments No comments found. Cosigned by LORNE Rodriguez at 06/10/2024 4:12 PM EST Associated attestation - Corina Curran, LORNE - 06/10/2024 4:12 PM EST I attest that I, Coby Curran M.S.,[facility]-BULK FLUIDS HANDLER, was physically involved in the ongoing assessment, decision making, and interventions provided during today's patient care session. I have reviewed all documentation for today's 06/10/24, entered by Speech Therapy Fellow, Fanny Boyd, and further attest that it is an accurate clinical record of today's encounter, including accurate and appropriate charges. * Wen Calles, DO - 06/10/2024 1:16 PM EST Images from the original note were not included. [facility] Daily Progress Note Patient name: Bob Han : 1950 SUBJECTIVE: Patient seen and examined at bedside today. No acute events overnight. Denies headaches, dizziness,shortness of breath, chest pain, nausea, constipation, and pain. No new concerns today. Participating in therapies: Pt completed x50ft, 2x80ft, x30ft ambulation with RW partial A for morethan steadying assistance, pt needing cue for LUE management, with prolonged ambulation distance decreased foot clearance on LLE, pt unaware of decreased foot clearance. OBJECTIVE: Vitals: 06/09/24 0835 06/09/24199906/10/24 0316 06/10/24 0745 BP: 115/71 124/66 108/58 121/64 BP Location: Right arm Right arm Right arm Patient Position: Sitting Lying Sitting Pulse: 75 71 54 61 Resp: 18 16 18 Temp: 36.7 ??C (98.1 ??F) 36.4 ??C (97.5 ??F) 36.4 ??C (97.5 ??F) TempSrc: Oral Oral Oral SpO2: 97% 96% 98% Physical Examination: General: Alert, in no acute cardiopulmonary distress. Mental Status: Oriented to person, place and time. Normal affect. Head: Normocephalic. Eyes: Pupils are equal, round and reactive to light. Extraocular muscles intact. Ear, Nose and Throat: Oropharynx clear, mucous membranes moist. Ears and nose without masses, lesions or deformities. Neck: Supple, Trachea midline. Respiratory: Clear to auscultation and percussion. No wheezing, rales or rhonchi. Cardiovascular: Heart sounds normal. No thrills. Regular rate and rhythm, no murmurs, rubs or gallops. Gastrointestinal: Abdomen soft, non-tender, non-distended. Normal bowel sounds. Genitourinary: No costovertebral angle tenderness. Neurologic: Cranial nerves II-XII intact. Deep tendon reflexes +2 bilaterally. Negative Hoffmans sign bilaterally. Negative clonus bilaterally. + pronation and flexion drift of the left upper extremity with left upper extremity weakness 3+/5. Left lower extremity 5 minus/5, hyperreflexia on the left side with an extensor plantar response.Sensation intact bilaterally. Skin: No rashes or lesions. No petechiae or purpura. No edema. Musculoskeletal: No cyanosis or clubbing. No gross deformities. Strength 4/5 throughout the left upper extremity. CURRENT INPATIENT MEDICATIONS: Current Facility-Administered Medications: aluminum-magnesium hydroxide-simethicone (MAALOX) 200-200-20 mg/5 mL suspension 30 mL, 30 mL, oral,q4h PRN, Wen A Stevan, DO amLODIPine (NORVASC) tablet 5 mg, 5 mg, oral, Daily, Wen A Stevan, DO, 5 mg at 06/10/24 0839 aspirin chewable tablet 81 mg, 81 mg, oral, Daily, Wen A Stevan, DO, 81 mg at 06/10/24 0838 bisacodyL (DULCOLAX) suppository 10 mg, 10 mg, rectal, Daily PRN, Wen A Stevan, DO, 10 mg at05/26/24 1348 dextrose (D50W) 50% injection 12.5 g, 12.5 g, intravenous, q15 min PRN, ERIC Carbone dextrose (D50W) 50% injection 25 g, 25 g, intravenous, q15 min PRN, ERIC Carbone dextrose 15 gram/60 mL oral solution 15 g, 15 g, oral, q15 min PRN, ERIC Carbone dextrose 15 gram/60 mL oral solution 30 g, 30 g, oral, q15 min PRN, ERIC Carbone docusate sodium (COLACE) capsule 100 mg, 100 mg, oral, BID, Wen A Stevan, DO, 100 mg at 06/10/24 0838 ezetimibe (ZETIA) tablet 10 mg, 10 mg, oral, Daily, Wen A Stevan, DO, 10 mg at 06/10/24 0839 Glucagon HCl (rDNA) injection 1 mg, 1 mg, intramuscular, Once PRN, ERIC Carbone magnesium hydroxide (MILK OF MAGNESIA) 400 mg/5 mL suspension 30 mL, 30 mL, oral, Daily PRN, Wen A Stevan, DO, 30 mL at 05/30/24 1357 nystatin (MYCOSTATIN) 100,000 unit/gram powder, , Topical, BID, Wen A Stevan, DO, Given at 06/10/24 0841 polyethylene glycol (MIRALAX) packet 17 g, 17 g, oral, Daily, ERIC Chisholm, 17 g at 06/10/24 0838 senna (SENOKOT) tablet 17.2 mg, 2 tablet, oral, Nightly, ERIC Chisholm, 17.2 mg at 06/08/24 2104 LABS: Lab Results Component Value Date WBC 7.9 06/07/2024 RBC 4.70 06/07/2024 HGB 13.6 06/07/2024 HCT 41.2 (L) 06/07/2024 MCV 87.5 06/07/2024 MCHC 33.0 06/07/2024 RDW 12.8 06/07/2024 PLT 384 06/07/2024 MPV 8.5 06/07/2024 NRBC 0.0 06/07/2024 DIFF Lab Results Component Value Date LYMPHOPCT 31.2 05/24/2024 NEUTROABS 3.78 05/24/2024 LYMPHSABS 2.33 05/24/2024 MONOABS 1.08 (H) 05/24/2024 EOSABS 0.15 05/24/2024 BASOSABS 0.08 05/24/2024 IMMGRANABS 0.04 (H) 05/24/2024 RETIC No results found for: RETIC , RETICCTPCT Lab Results Component Value Date NA 134 06/07/2024 K 4.4 06/07/2024 CL 104 06/07/2024 CO2 28 06/07/2024 GLUCOSE 89 06/07/2024 BUN 20 06/07/2024 CREATININE 0.78 06/07/2024 CALCIUM 9.4 06/07/2024 PROT 6.8 06/07/2024 ALBUMIN 2.9 (L) 06/07/2024 BILITOT 0.5 06/07/2024 AST 33 06/07/2024 ALT 51 06/07/2024 ALKPHOS 114 06/07/2024 EGFR 94 06/07/2024 IMPRESSION & PLAN: #Impaired mobility and self-care -Secondary to CVA -Continue with PT/OT/speech #Acute ischmic CVA #Left hemiparesis -Aspirin 81 mg daily -Ezetimibe 10 mg daily -continue therapies -f/u Neurology after discharge #Hypertension -Amlodipine 5 mg daily #DMT2 -A1C 5.3 -Diabetic diet -ISS discontinued given that fingersticks controlled #Lumbar spinal stenosis -will plan for follow up with [facility] after discharge for further management #Insomnia -Melatonin 9mg QHS PRN discontinued on 06/03 given that medication causes fatigue the following day #Hyperammonemia, resolved -Present at [facility] on 05/17 however resolved #UTI -Amoxicillin 250mg Q8H x10 days (end date: 06/07) d/c on 05/31 and transitioned to Ceftin 250 mg BID x 7 days (completed on 06/07) #Bowel management -Colace 100mg BID -Miralax 17gm daily -Senna 2 tabs QHS DVT ppx: Continue Aspirin and ambulation with therapies as tolerated. SCDs to BLE when in bed. * Mirlande Aquino, PT - 06/10/2024 12:41 PM EST [facility] Physical Therapy Treatment Note 06/10/2024 Patient: Bob Han : 1950 Age: 74 y.o. Gender: male Primary Language: Argentine Diagnosis: CVA (cerebral vascular accident) (CMS/HCC) Past Medical History: Diagnosis Date HLD (hyperlipidemia) HTN (hypertension) Migraines Spinal stenosis History reviewed. No pertinent surgical history. Allergies: is allergic to acetaminophen, atorvastatin, glipizide, and rosuvastatin. Precautions: Medical Precautions: Fall Risk Safety Interventions: Call [place] within reach RUE Weight Bearing Status: Full LUE Weight Bearing Status: Full RLE Weight Bearing Status: Full LLE Weight Bearing Status: Full SUBJECTIVE Pt report: Larry got me this cane? Pain: Pain Assessment: 0-10 Pain Score: 0 - No pain OBJECTIVE General Observation: Seated in WC agreeable to participating in therapy session. Procedure/Treatment: Neuromuscular Reeducation: Balance/Neuromuscular Re-Education Neuromuscular Re-Education Time Entry: 90 Pt completed x100ft of WC Mobility SUP down to therapy gym. Per pt Larry purchased LBQC. Therapist and pt completed ascending and descending platform step with LBQC, partial A for more than steadyingassistance, pt needing cues for sequencing. Therapist providing demonstration on how to ascend and descend platform step with RW x3 trials, pt needing partial A x1 for assistance with RW management, mod cues for sequencing, pt consistently attempting to ascend step with LLE. Pt cued to ambulate as far as he can, and cued to return to without seated break. Pt ambulating x185ft steadying assistance with RW, pt with decreased foot clearance on LLE with increased ambulation distance, pt unaware o f decreased foot clearance and narrow CONCHIS with increased distance. Pt completed bed mobility SUP, sit<>supine and rolling. Pt and therapist discussing pt wanting to go to [facility] in june, education provided on level for community, pt agreeable. Pt complete STS to RW, steadying assistance, pt using a soda fountain manager to pickle solution maker an object SUP. Pt completed x16 stairs, x14 stairs ascending with RLE a nd descending with LLE, steadying assistance. Pt attempting x2 steps ascending with LLE, pt needingpartial A when ascending with LLE. Pt completed x16 steps RUE on L ascending rail, steadying assistance. Pt completed WC mobility back to room SUP. Pt left seated in WC, call [place] in reach, chair alarm on, all needs met. Education: Education Documentation Mobility Training, taught by Mirlande Aquino PT at 06/10/2024 1:10 PM. Learner: Patient Readiness: Acceptance Method: Demonstration Response: Verbalizes Understanding, Demonstrated Understanding Comment: DME for d/c home, dc planning endurance. Education Comments No comments found. ASSESSMENT Pt progressing to SUP-steadying assistance with transfers, bed mobility. PT Assessment PT Assessment Results: Decreased strength, Decreased range of motion, Decreased endurance, Impairedbalance, Impaired gait Prognosis: Good Equipment: TBD Plan of Care Plan Treatment/Interventions: Functional transfer training, LE strengthening/ROM, Endurance training, Cognitive reorientation, Bed mobility, Gait training, Balance training, Continued evaluation, Compensatory technique education PT Plan: Skilled PT PT Frequency: 5-7 days per week PT Duration of Sessions: 60-90 min per session PT Treatments per day: 1 time per day PT Discharge Recommendations: Other (Comment) (TBD) Problems/Goals Goals: Encounter Problems Encounter Problems (Active) Template: Physical Therapy Problem: PT Group Home Goals Dates: Start: 05/24/24 Goal: mod-I ambulation x150ft Dates: Start: 05/24/24 Outcomes Date/Time User Outcome 06/04/24918 Mirlande Aquino, LUIS MANUEL Progressing Goal: mod-I x12 stairs unilat. railing Dates: Start: 05/24/24 Outcomes Date/Time User Outcome 06/04/24918 Mirlande Aquino PT Progressing Goal: mod-I bed mobility Dates: Start: 05/24/24 Outcomes Date/Time User Outcome 06/04/24918 Mirlande Aquino PT Progressing Goal: mod-I transfers Dates: Start: 05/24/24 Outcomes Date/Time User Outcome 06/04/24918 Mirlande Aquino PT Progressing Problem: PT Short Term Goals Dates: Start: 05/24/24 Goal: SUP bed mobility Dates: Start: 05/24/24 Outcomes Date/Time User Outcome 06/04/24918 Mirlande Aquino, LUIS MANUEL Progressing Goal: partial A transfers LRAD (Resolved) Dates: Start: 05/24/24 Resolved: 05/31/24 Outcomes Date/Time User Outcome 05/31/24 1137 Mirlande Aquino PT Completed Goal: partial A x50ft LRAD ambulation Dates: Start: 05/24/24 Outcomes Date/Time User Outcome 06/04/24 0919 Mirlande Aquino PT Progressing Goal: partial A x4 stairs (Resolved) Dates: Start: 05/24/24 Resolved: 05/31/24 Outcomes Date/Time User Outcome 05/31/24 1137 Mirlande Aquino PT Completed Encounter Problems (Resolved) There are no resolved problems. Session Start/Stop Time: 1230 1400 Therapy Minutes Physical Therapy PT Individual: 90 * Theodore Clement, OT - 06/10/2024 10:00 AM EST [facility] Occupational Therapy Treatment Note 06/10/24 Patient: Bob Han : 1950 Age: 74 y.o. Gender: male Diagnosis: CVA (cerebral vascular accident) (CMS/HCC) Primary Rehab (Etiologic) Diagnosis: Patient Active Problem List Diagnosis CVA (cerebral vascular accident) ([facility]) PMH: Past Medical History: Diagnosis Date HLD (hyperlipidemia) HTN (hypertension) Migraines Spinal stenosis PSH: History reviewed. No pertinent surgical history. Allergies: is allergic to acetaminophen, atorvastatin, glipizide, and rosuvastatin. Precautions: Precautions Medical Precautions: Fall Risk Safety Interventions: Call [place] within reach RUE Weight Bearing Status: Full LUE Weight Bearing Status: Full RLE Weight Bearing Status: Full LLE Weight Bearing Status: Full Subjective: I think I can finally count on this arm. Procedures/Interventions: ADLs/IADLs Self Care/Home Management (ADLs) Time Entry: 60 Pt seated in w/c upon arrival, agreeable to participation in planned shower. Pt reporting Peter purchased cane, observed to be LBQC. Pt propelled self from room>gym partial A for propelling as feet did not touch floor adequately in new w/c. Short distance amb with LBQC into bathroom steadying A.Tub txfer with use of tub txfer bench touching A for maneuvering L LE over threshold, and verbal cues for safe body mechanics. Pt noted to have some residual bowel. STS with UE support on grab bar, S. In stand Dep for posterior hygiene. Once seated pt bathed mainly seated with use of hand held shower, with use of B UEs to bathe body and wash hair. Assist to place and retreive hand held shower. Verbal cues for thoroughness, including standing to bathe buttocks. SBA in stand, pt bathed buttocks with R UE. Pt declining to bathe feet at this time. Pt donned bridge attacher socks with education provided on one handed technique, overall partial A. Txfer out of tub steadying A and cues for safe body mechanics and postioning of B LEs at end of tub bench prior to stand. STS from tub bench with UE support on grab bar, as tub bench positioned too high, to allow B Les to assist with scooting. Functional amb back to w/c steadying A with LBQC, pt tasked with opening door with L hand, steadying A. Pt dep wheeled back to room for energy conservation. In stand with LBQC pt opened drawer with L UE, and retrieved items with R UE, with assist to place on near by chair. Seated in w/c pt dressed UB with mod I, retrieving from chair to L. Pt able to retrieve underwear from chair with L UE with set up for positioning of underwear. Pt with good recall of laurel dressing technique. Pt able to thread B Les with increased time. S to hike over hips. RN present to replaced Allevyn. Pt donned Shorts with overall S forhiking in stand. Pt doffed/donned L sock S, pt donned/doffed R socks with S and increased time. Pt donned B shoes with POST. Balance/Neuromuscular Re-Education Neuromuscular Re-Education Time Entry: 30 Pt engage din NMRE to L UE to increase functional use. Seated in w/c at table top Pt engaged in B UE rodney with 5 lb weight placed inside, with device positioned on 4th notch from the top to upgradechallenge from past session. Pt performed 10 reps X3 with cues for leading with L UE. Pt then tasked with retrieving pom poms from table top with L pincer grasp and then transporting totarget. Initially pt tasked with placing into high container, difficulty clearing fingers while removing from container, thus down graded to small threshold container, with increased success. Verbal cues for sustained use of pincer grasp. Pt L UE noted to fatigue quickly with task. At end of task pt tasked with assuming disk grasp on lid to place onto container. Pt able to assume initially, however unable to bring up to higher container, requiring assistance. End of session pt seated in w/c with all needs met, chair alarm on, and call [place] in reach, OT Assessment OT Assessment OT Assessment Results: Decreased ADL status, Decreased upper extremity range of motion, Decreased upper extremity strength, Decreased endurance, Decreased fine motor control, Decreased functional mobility, Decreased gross motor control Prognosis: Good Evaluation/Treatment Tolerance: Patient tolerated treatment well, ongoing improvements with ADL. Ptreporting participating in LUE HEP during down time from therapy. 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: OT Group Home Goals Dates: Start: 05/24/24 Goal: pt will be IND with lower body dressing AE PRN Dates: Start: 05/24/24 Expected End: 06/14/24 Goal: pt will be IND with upper body dressing Dates: Start: 05/24/24 Expected End: 06/14/24 Goal: pt will be IND with toilet txfer LRAD Dates: Start: 05/24/24 Expected End: 06/14/24 Goal: pt will ne IND with toileting tasks LRAD Dates: Start: 05/24/24 Expected End: 06/14/24 Goal: pt will be IND with footwear tasks AE PRN Dates: Start: 05/24/24 Expected End: 06/14/24 Problem: OT Short Term Goals Dates: Start: 05/24/24 Goal: Pt will be mod assist with upper body dressing (Resolved) Dates: Start: 05/24/24 Expected End: 05/31/24 Resolved: 05/30/24 Outcomes Date/Time User Outcome 05/30/24 0844 Coby Aleman OT Completed Goal: Pt will me max assist with lower body dressing AE PRN (Resolved) Dates: Start: 05/24/24 Expected End: 05/31/24 Resolved: 05/30/24 Outcomes Date/Time User Outcome 05/30/24 0844 Coby Aleman OT Completed Goal: Pt will be max assist with footwear AE PRN (Resolved) Dates: Start: 05/24/24 Expected End: 05/31/24 Resolved: 05/30/24 Outcomes Date/Time User Outcome 05/30/24 0844 Coby Aleman OT Completed Goal: pt will be mod assist toilet txfer LRAD Dates: Start: 05/24/24 Expected End: 05/31/24 Outcomes Date/Time User Outcome 06/07/24 1423 Theodore Clement OT Progressing Goal: pt will be max assist with toileting tasks Dates: Start: 05/24/24 Expected End: 05/31/24 Outcomes Date/Time User Outcome 06/07/24 1423 Theodore Clement OT Progressing Encounter Problems (Resolved) There are no resolved problems. Education Documentation Safe Use of DME, taught by Theodore Clement OT at 06/10/2024 11:42 AM. Learner: Patient Readiness: Acceptance Method: Explanation, Demonstration Response: Verbalizes Understanding, Demonstrated Understanding Activity/Positioning, taught by Theodore Clement OT at 06/10/2024 11:42 AM. Learner: Patient Readiness: Acceptance Method: Explanation, Demonstration Response: Verbalizes Understanding, Demonstrated Understanding Discharge Planning, taught by Theodore Clement OT at 06/10/2024 11:42 AM. Learner: Patient Readiness: Acceptance Method: Explanation, Demonstration Response: Verbalizes Understanding, Demonstrated Understanding Body Mechanics, taught by Theodore Clement OT at 06/10/2024 11:42 AM. Learner: Patient Readiness: Acceptance Method: Explanation, Demonstration Response: Verbalizes Understanding, Demonstrated Understanding Home Exercise Program, taught by Theodore Clement OT at 06/10/2024 11:42 AM. Learner: Patient Readiness: Acceptance Method: Explanation, Demonstration Response: Verbalizes Understanding, Demonstrated Understanding ADL Training, taught by Theodore Clement OT at 06/10/2024 11:42 AM. Learner: Patient Readiness: Acceptance Method: Explanation, Demonstration Response: Verbalizes Understanding, Demonstrated Understanding Education Comments No comments found. Start/Stop Time OT Time Calculation OT Start Time: 1000 OT Stop Time: 1130 OT Time Calculation (min): 90 min Therapy Minutes: Occupational Therapy OT Individual: 90 * Mirlande Aquino, PT - 06/09/2024 2:33 PM EST [facility] Physical Therapy Treatment Note 06/09/2024 Patient: Bob Han : 1950 Age: 74 y.o. Gender: male Primary Language: Argentine Diagnosis: CVA (cerebral vascular accident) (CMS/HCC) Past Medical History: Diagnosis Date HLD (hyperlipidemia) HTN (hypertension) Migraines Spinal stenosis History reviewed. No pertinent surgical history. Allergies: is allergic to acetaminophen, atorvastatin, glipizide, and rosuvastatin. Precautions: Medical Precautions: Fall Risk Safety Interventions: Call [place] within reach RUE Weight Bearing Status: Full LUE Weight Bearing Status: Full RLE Weight Bearing Status: Full LLE Weight Bearing Status: Full SUBJECTIVE Pt report: I see why people like these things. (In reference to use of rolling walker during therapy session. Pain: Pain Assessment: No/denies pain Pain Score: 0 - No pain OBJECTIVE General Observation: Seated in WC agreeable to participating in therapy session. Procedure/Treatment: Neuromuscular Reeducation: Balance/Neuromuscular Re-Education Neuromuscular Re-Education Time Entry: 90 Pt sitting in WC agreeable to PT session. Pt requesting to use the bathroom, pt wanting to wheel into bathroom d/t urgency. Therapist encouraging pt to ambulate into bathroom with this service writer advisor, garcia Rapp WC will not fit within house. Pt completed WC mobility into bathroom, steadying assistance for transfer. Pt then completing STS to trial voiding in standing, max-A for anterior LOB once standing infront of toilet. Pt needing assistance with change of clothes. Pt completed WC mobility SUP with increased time taken. Pt completed stand pivot transfer steadying assistance into 18 inch WC. Pt reporting improved fit. Pt completed x50ft, 2x80ft, x30ft ambulation with RW partial A for more than stead viral assistance, pt needing cue for LUE management, with prolonged ambulation distance decreased foot clearance on LLE, pt unaware of decreased foot clearance. Pt completed x12 stairs with RUE on L ascending railing. Therapist and pt discussing pts leisure activity of hunting and hiking, therapist r ecommending pt avoid these activities at this time d/t impaired dynamic gait and balance. Pt completed ascending and descending x16 stairs with RUE on L ascending railing, step to pattern, x1 cue forascending with RLE, rather than LLE. Pt trialing quadraped on mat table, pt crawling onto mat table, partial A, pt completed push up, second assist to guard LUE, pt completed x10 push ups, pt crawling backwards off of mat table. Pt completed stand pivot transfer to WC, pt steadying assistance. Pt brought back to room in WC, pt left seated in WC, call [place] in reach, chair alarm on, all needs met. Education: Education Documentation Mobility Training, taught by Mirlande Aquino PT at 06/09/2024 2:48 PM. Learner: Patient Readiness: Eager Method: Explanation, Demonstration Response: Verbalizes Understanding, Demonstrated Understanding Comment: DME for d/c home. Education Comments No comments found. ASSESSMENT Pt to benefit from continued use of RW for ambulation to improve step through gait pattern. PT Assessment PT Assessment Results: Decreased strength, Decreased range of motion, Decreased endurance, Impairedbalance, Impaired gait Prognosis: Good Equipment: TBD Plan of Care Plan Treatment/Interventions: Functional transfer training, LE strengthening/ROM, Endurance training, Cognitive reorientation, Bed mobility, Gait training, Balance training, Continued evaluation, Compensatory technique education PT Plan: Skilled PT PT Frequency: 5-7 days per week PT Duration of Sessions: 60-90 min per session PT Treatments per day: 1 time per day PT Discharge Recommendations: Other (Comment) (TBD) Problems/Goals Goals: Encounter Problems Encounter Problems (Active) Template: Physical Therapy Problem: PT Group Home Goals Dates: Start: 05/24/24 Goal: mod-I ambulation x150ft Dates: Start: 05/24/24 Outcomes Date/Time User Outcome 06/04/24 0919 Mirlande Aquino PT Progressing Goal: mod-I x12 stairs unilat. railing Dates: Start: 05/24/24 Outcomes Date/Time User Outcome 06/04/24918 Mirlande Aquino PT Progressing Goal: mod-I bed mobility Dates: Start: 05/24/24 Outcomes Date/Time User Outcome 06/04/24918 Mirlande Aquino PT Progressing Goal: mod-I transfers Dates: Start: 05/24/24 Outcomes Date/Time User Outcome 06/04/24 0919 Mirlande Aquino PT Progressing Problem: PT Short Term Goals Dates: Start: 05/24/24 Goal: SUP bed mobility Dates: Start: 05/24/24 Outcomes Date/Time User Outcome 06/04/24918 Mirlande Aquino PT Progressing Goal: partial A transfers LRAD (Resolved) Dates: Start: 05/24/24 Resolved: 05/31/24 Outcomes Date/Time User Outcome 05/31/24 1137 Mirlande Aquino PT Completed Goal: partial A x50ft LRAD ambulation Dates: Start: 05/24/24 Outcomes Date/Time User Outcome 06/04/24918 Mirlande Aquino PT Progressing Goal: partial A x4 stairs (Resolved) Dates: Start: 05/24/24 Resolved: 05/31/24 Outcomes Date/Time User Outcome 05/31/24 1137 Mirlande Aquino PT Completed Encounter Problems (Resolved) There are no resolved problems. Session Start/Stop Time: 1400 1530 Therapy Minutes Physical Therapy PT Individual: 90 * Fanny Boyd, BULK FLUIDS HANDLER - 06/09/2024 1:26 PM EST Speech Language Pathology Speech Language Pathology Treatment Subjective BULK FLUIDS HANDLER Start Time: 1200 BULK FLUIDS HANDLER Stop Time: 1300 BULK FLUIDS HANDLER Time Calculation (min): 60 min Subjective: Pt was alert and sitting upright in wheelchair for the session. Pt was tearful at the start of session because he was excited about d/c date and was provided education about progress and OP services. Pt was pleasant and cooperative throughout the session. Pt required mod amount of redirection to the task. Objective General Visit Info General Family/Caregiver Present: No Treatment Speech and Language Speech Treatment (Individual) Time Entry: 15 Verbal Expression: Pt was able to generate 5/14 items in an abstract category indep. and 10/14 given min A for associations and 14/14 given mod A for idea generation Cognitive Skills Therapeutic Interventions Cognitive Skills Direct Contact Time Entry: 45 Sequencing: Pt was able to complete sequencing written task w/ 78% accuracy indep. and 91% given min A for use of cognitive strategies to slow down and visually scan all the steps and identifying theappropriate first step. Memory: Pt reported feeling worried about balancing tasks at home and was provided education about energy conservation after a stroke. Pt was provided education about the 4 Ps of energy conservation and engaged in a conversation about use of strategies upon d/c. Pt was tasked w/ encoding the 4 Ps for recall task given mod A for encoding and was able to recall 4/4 immediately, 3/4 given 30-second delay and 4/4 given min A of gestural cue, 4/4 given 1-min, 2-min, and 5-min delay and 3/4 given 10-min delay and 4/4 given sentence completion cue. Pt was provided w/ a handout at bedside. Pt was able to indep. recall x4 risk factors for stroke from previous session. Attention/Concentration: Pt was able to answer questions related to a 5-min DAVID talk w/ 50% accuracy indep. and 70% accuracy given multiple choice cues. Pt presented w/ tangential speech during task and required cues to stay on task. Assessment/Plan BULK FLUIDS HANDLER Assessment BULK FLUIDS HANDLER Assessment Results: Cognitive impairments Evaluation/Treatment Tolerance: Patient tolerated treatment well Comments: Pt requested to do another session in the community Plan Treatment/Interventions: Cognitive linguistic functioning BULK FLUIDS HANDLER Plan: Skilled BULK FLUIDS HANDLER BULK FLUIDS HANDLER Frequency: 5-7 days per week B[employer]K [employer] HANDLER Duration of Sessions: 30-60 min per session B[employer]K FLU[employer] HANDLER Treatments per day: 1 time per day Goals Encounter Problems Encounter Problems (Active) Template: Speech Therapy Problem: BULK FLUIDS HANDLER Master Sonar Technician Goals Dates: Start: 05/24/24 Goal: Pt will improve cognitive linguistic skills to maximize indp for safe d/c back to community. Dates: Start: 05/24/24 Expected End: 06/14/24 Outcomes Date/Time User Outcome 06/08/24 0126 LORNE Romero Progressing Problem: BULK FLUIDS HANDLER Short Term Goals Dates: Start: 05/24/24 Goal: Pt will participate in additional cognitive linguistic assessment. (Resolved) Dates: Start: 05/24/24 Expected End: 05/27/24 Resolved: 06/01/24 Outcomes Date/Time User Outcome 06/01/24 1227 LORNE Bach Completed Goal: Pt will improve immediate and delayed recall of functional information to 80% accuracy given mod A for strategies. (Resolved) Dates: Start: 05/24/24 Expected End: 05/31/24 Resolved: 06/04/24 Outcomes Date/Time User Outcome 06/04/24 1400 LORNE Bach Completed Goal: Pt will participate in basic convergent/divergent categorization tasks at 80% accuracy given mod A. (Resolved) Dates: Start: 05/24/24 Expected End: 05/31/24 Resolved: 06/04/24 Outcomes Date/Time User Outcome 06/04/24 LORNE Chery Completed Goal: Pt will participate in basic mental flexibility/working memory tasks at 80% accuracy given mod A. (Resolved) Dates: Start: 05/24/24 Expected End: 06/07/24 Resolved: 06/09/24 Outcomes Date/Time User Outcome 06/09/24 1312 LORNE Bach Completed Goal: Pt will complete functional tasks targeting executive functioning skills (planning, organization, mental flexibility) at 80% accuracy given mod A. Dates: Start: 05/25/24 Expected End: 06/15/24 Description: Outcomes Date/Time User Outcome 06/02/24 1216 LORNE Bach Not Progressing Goal: Pt will complete sequencing tasks w/ 90% accuracy given mod A (Resolved) Dates: Start: 05/26/24 Expected End: 06/08/24 Resolved: 06/09/24 Description: Outcomes Date/Time User Outcome 06/09/24 1312 LORNE Bach Completed Goal: Pt will be able to answer problem-solving/reasoning tasks related to safety and ADLs w/ 90% accuracy given min A (Resolved) Dates: Start: 05/26/24 Expected End: 06/02/24 Resolved: 06/04/24 Description: Outcomes Date/Time User Outcome 06/04/24 1400 LORNE Bach Completed Goal: Pt will be able to identify 2 post-stroke deficits given min A (Resolved) Dates: Start: 05/27/24 Expected End: 06/03/24 Resolved: 06/04/24 Description: Outcomes Date/Time User Outcome 06/04/24 1400 LORNE Bach Completed Goal: Pt will improve immediate and delayed recall of functional information to 80% accuracy given min A for encoding and indep. for retrieval Dates: Start: 06/04/24 Expected End: 06/11/24 Description: Outcomes Date/Time User Outcome 06/09/24 1326 LORNE Bach Progressing Goal: Pt will participate in higher level naming tasks w/ 90% accuracy given min A Dates: Start: 06/04/24 Expected End: 06/11/24 Description: Outcomes Date/Time User Outcome 06/09/24 1326 LORNE Bach Not Progressing Goal: Pt will improve attention w/ mod-higher level visual and/or auditory tasks w/ 80% accuracy given min A Dates: Start: 06/04/24 Expected End: 06/11/24 Description: Outcomes Date/Time User Outcome 06/09/24 1326 LORNE Bach Not Progressing Goal: Pt will complete functional problem-solving/calculations tasks w/ 80% accuracy given mod A Dates: Start: 06/04/24 Expected End: 06/11/24 Description: Outcomes Date/Time User Outcome 06/07/24 1047 LORNE Romero Progressing Goal: Pt will complete sequencing tasks w/ 90% accuracy given min A Dates: Start: 06/09/24 Expected End: 06/16/24 Description: Outcomes Date/Time User Outcome 06/09/24 1326 LORNE Bach Progressing Encounter Problems (Resolved) There are no resolved problems. Education Documentation Speech/Language, taught by LORNE Bach at 06/09/2024 1:26 PM. Learner: Patient Readiness: Acceptance Method: Explanation, Handout Response: Verbalizes Understanding Cognition, taught by LORNE Bach at 06/09/2024 1:26 PM. Learner: Patient Readiness: Acceptance Method: Explanation, Handout Response: Verbalizes Understanding Education Comments No comments found. Cosigned by LORNE Rodriguez at 06/09/2024 4:10 PM EST Associated attestation - Corina Curran SLP - 06/09/2024 4:10 PM EST I attest that I, Coby Curran M.S.,[facility] [employer], was physically involved in the ongoing assessment, decision making, and interventions provided during today's patient care session. I have reviewed all documentation for today's 06/09/24, entered by Speech Therapy Fellow, Fanny Boyd, and further attest that it is an accurate clinical record of today's encounter, including accurate and appropriate charges. * ERIC Carbone - 06/09/2024 10:42 AM EST Images from the original note were not included. [facility] Daily Progress Note Patient name: Bob Han : 1950 SUBJECTIVE: Patient seen and examined at bedside today. No acute events overnight. Denies headaches, dizziness,shortness of breath, chest pain, nausea, constipation, and pain. No new concerns today. Reports his LUE is doing much better today and he is doing well with grasping things today. OBJECTIVE: Vitals: 06/08/24 1600 06/09/24 0457 06/09/24 0700 06/09/24 0835 BP: 135/78 113/54 115/58 115/71 BP Location: Right arm Right arm Right arm Right arm Patient Position: Sitting Lying Lying Sitting Pulse: 64 55 57 75 Resp: 18 16 18 Temp: 36.5 ??C (97.7 ??F) 36.7 ??C (98.1 ??F) TempSrc: Oral Oral Oral SpO2: 97% 94% 97% Physical Examination: General: Alert, in no acute cardiopulmonary distress. Mental Status: Oriented to person, place and time. Normal affect. Head: Normocephalic. Eyes: Pupils are equal, round and reactive to light. Extraocular muscles intact. Ear, Nose and Throat: Oropharynx clear, mucous membranes moist. Ears and nose without masses, lesions or deformities. Neck: Supple, Trachea midline. Respiratory: Clear to auscultation and percussion. No wheezing, rales or rhonchi. Cardiovascular: Heart sounds normal. No thrills. Regular rate and rhythm, no murmurs, rubs or gallops. Gastrointestinal: Abdomen soft, non-tender, non-distended. Normal bowel sounds. Genitourinary: No costovertebral angle tenderness. Neurologic: Cranial nerves II-XII intact. Deep tendon reflexes +2 bilaterally. Negative Hoffmans sign bilaterally. Negative clonus bilaterally. + pronation and flexion drift of the left upper extremity with left upper extremity weakness 3+/5. Left lower extremity 5 minus/5, hyperreflexia on the left side with an extensor plantar response.Sensation intact bilaterally. Skin: No rashes or lesions. No petechiae or purpura. No edema. Musculoskeletal: No cyanosis or clubbing. No gross deformities. Strength 4/5 throughout the left upper extremity. CURRENT INPATIENT MEDICATIONS: Current Facility-Administered Medications: aluminum-magnesium hydroxide-simethicone (MAALOX) 200-200-20 mg/5 mL suspension 30 mL, 30 mL, oral,q4h PRN, Wen A Stevan, DO amLODIPine (NORVASC) tablet 5 mg, 5 mg, oral, Daily, Wen A Stevan, DO, 5 mg at 06/09/24 0841 aspirin chewable tablet 81 mg, 81 mg, oral, Daily, Wen A Stevan, DO, 81 mg at 06/09/24 0841 bisacodyL (DULCOLAX) suppository 10 mg, 10 mg, rectal, Daily PRN, Wen A Stevan, DO, 10 mg at05/26/24 1348 dextrose (D50W) 50% injection 12.5 g, 12.5 g, intravenous, q15 min PRN, ERIC Carbone dextrose (D50W) 50% injection 25 g, 25 g, intravenous, q15 min PRN, Tahmina Hanna, PA dextrose 15 gram/60 mL oral solution 15 g, 15 g, oral, q15 min PRN, Neftalita Jacques, PA dextrose 15 gram/60 mL oral solution 30 g, 30 g, oral, q15 min PRN, ERIC Carbone docusate sodium (COLACE) capsule 100 mg, 100 mg, oral, BID, Wen A Stevan, DO, 100 mg at 06/09/24 0841 ezetimibe (ZETIA) tablet 10 mg, 10 mg, oral, Daily, Wen A Stevan, DO, 10 mg at 06/09/24 0841 Glucagon HCl (rDNA) injection 1 mg, 1 mg, intramuscular, Once PRN, ERIC Carbone magnesium hydroxide (MILK OF MAGNESIA) 400 mg/5 mL suspension 30 mL, 30 mL, oral, Daily PRN, Wen A Stevan, DO, 30 mL at 05/30/24 1357 nystatin (MYCOSTATIN) 100,000 unit/gram powder, , Topical, BID, Wen A Stevan, DO, Given at 06/09/24 0842 polyethylene glycol (MIRALAX) packet 17 g, 17 g, oral, Daily, ERIC Chisholm, 17 g at 06/09/24 0841 senna (SENOKOT) tablet 17.2 mg, 2 tablet, oral, Nightly, ERIC Chisholm, 17.2 mg at 06/08/24 2104 LABS: Lab Results Component Value Date WBC 7.9 06/07/2024 RBC 4.70 06/07/2024 HGB 13.6 06/07/2024 HCT 41.2 (L) 06/07/2024 MCV 87.5 06/07/2024 MCHC 33.0 06/07/2024 RDW 12.8 06/07/2024 PLT 384 06/07/2024 MPV 8.5 06/07/2024 NRBC 0.0 06/07/2024 DIFF Lab Results Component Value Date LYMPHOPCT 31.2 05/24/2024 NEUTROABS 3.78 05/24/2024 LYMPHSABS 2.33 05/24/2024 MONOABS 1.08 (H) 05/24/2024 EOSABS 0.15 05/24/2024 BASOSABS 0.08 05/24/2024 IMMGRANABS 0.04 (H) 05/24/2024 RETIC No results found for: RETIC , RETICCTPCT Lab Results Component Value Date NA 134 06/07/2024 K 4.4 06/07/2024 CL 104 06/07/2024 CO2 28 06/07/2024 GLUCOSE 89 06/07/2024 BUN 20 06/07/2024 CREATININE 0.78 06/07/2024 CALCIUM 9.4 06/07/2024 PROT 6.8 06/07/2024 ALBUMIN 2.9 (L) 06/07/2024 BILITOT 0.5 06/07/2024 AST 33 06/07/2024 ALT 51 06/07/2024 ALKPHOS 114 06/07/2024 EGFR 94 06/07/2024 IMPRESSION & PLAN: #Impaired mobility and self-care -Secondary to CVA -Continue with PT/OT/speech #Acute ischmic CVA #Left hemiparesis -Aspirin 81 mg daily -Ezetimibe 10 mg daily -continue therapies -f/u Neurology after discharge #Hypertension -Amlodipine 5 mg daily #DMT2 -A1C 5.3 -Diabetic diet -ISS d/c pn 05/27 #Lumbar spinal stenosis -will plan for follow up with [facility] after discharge for further management #Insomnia -Melatonin 9mg QHS PRN discontinued on 06/03 given that medication causes fatigue the following day #Hyperammonemia, resolved -Present at [facility] on 05/17 however resolved #UTI -Amoxicillin 250mg Q8H x10 days (end date: 06/07) d/c on 05/31 and transitioned to Ceftin 250 mg BID x 7 days (completed on 06/07) #Bowel management -Colace 100mg BID -Miralax 17gm daily -Senna 2 tabs QHS DVT ppx: Continue Aspirin and ambulation with therapies as tolerated. SCDs to BLE when in bed. Cosigned by Wen Calles DO at 06/10/2024 8:06 AM EST Associated attestation - Wen Calles DO - 06/10/2024 8:06 AM EST Agree with progress note, assessment, and plan as documented by PA. * Wisam Garnica RN - 06/09/2024 9:43 AM EST Goals: Clinical Goals for the Shift: Become oriented to unit/floor/staff. To sleep better. Identify possible barriers to meeting goals/advancing plan of care: sleep Stability of the patient: Moderately Stable - Low risk of patient condition declining or worsening End of Shift Summary: Pt resting comfoprtably with family in room * Theodore Clement OT - 06/09/2024 7:00 AM EST [facility] Occupational Therapy Treatment Note 06/09/24 Patient: Bob Han : 1950 Age: 74 y.o. Gender: male Diagnosis: CVA (cerebral vascular accident) ([facility]) Primary Rehab (Etiologic) Diagnosis: Patient Active Problem List Diagnosis CVA (cerebral vascular accident) ([facility]) PMH: Past Medical History: Diagnosis Date HLD (hyperlipidemia) HTN (hypertension) Migraines Spinal stenosis PSH: History reviewed. No pertinent surgical history. Allergies: is allergic to acetaminophen, atorvastatin, glipizide, and rosuvastatin. Precautions: Precautions Medical Precautions: Fall Risk Safety Interventions: Call [place] within reach RUE Weight Bearing Status: Full LUE Weight Bearing Status: Full RLE Weight Bearing Status: Full LLE Weight Bearing Status: Full Vitals: BP: 115/58 Heart Rate: 57 Pain: Pain Assessment Pain Assessment: (pt reporting mild low back pain while in stand.) Subjective: My arm is doing better this morning Procedures/Interventions: ADLs/IADLs Self Care/Home Management (ADLs) Time Entry: 60 Pt in elevated supine upon arrival, agreeable to participation. Vitals assessed see above. HOB lowered to simulate home. Supine>Sit EOB with touching A, with verbal cues for body mechanics of assuming side lying then pushing up to sit, to maximize independence. Dep to don Crm Administrator socks. Functional amb to closet with SBQC with steadying A, cues for pushing up from bed to stand. In stand pt utilizing L UE to open drawers, attempting to retreive items however utilized R UE due to difficulty with grasp in L hand. Pt retrieved shirt and underwear then requesting seated rest due to low back pain. Once seated pt donned T shirt with POST and increased time. Pt able to thread B Les through underwear with assist to untangle underwear. Steadying A to hike over Hips with B Ues. Pt then retrieved shortsfrom drawer with L UE, and using L UE to transport back to w/c. Pt donned shorts with steadying A in stand to hike over hips. Seated in w/c at sink pt performed oral hygiene with L UE as gross assistwith mod I. Pt able to doff bridge attacher socks (regular socks underneath) with S. Pt donned slip on sneakers with S. Seated in w/c pt ate breakfast with mod I, able to open all containers with B Ues. Pt not required to cut items on tray as pt is on a soft/bite sized consistency. Ed of session pt seated in w/c with chair alarm on and call [place] in reach. Balance/Neuromuscular Re-Education Neuromuscular Re-Education Time Entry: 30 Pt propelled self from room>gym with B Les with tactile cues for placing L UE on arm rest. Once in gym pt engaged in task to target standing tolerance, dynamic balance/reactive balance, and L UE use/bridge attacher strength. In stand pt provided with 3 color sequence and tasked with removing suction cups form vertical white board in that sequence with L UE. Min cues for following sequence. Pt utilizing LUE to remove from white board, with verbal cues for lateral pinch/radial grasp, as pt attempting tograsp item between 3-4 digits. Verbal cues and increased time for assuming digit extension to release into bucket. Multiple seated rest breaks taken throughout for L UE fatigue. All items place at shoulder level and below. Across all trials pt able to remove all items. No more than steadying A for b alance. Seated in w/c at table top pt tasked with performing B UE rodney with 5lb weight inside. Rodney placed on 2 and then 3 notch from top, to target B UE coordination and L UE strength. Pt performed 10 reps X3 with rest breaks taken between trials. Pt able to assume full L elbow extension. OT Assessment OT Assessment OT Assessment Results: Decreased ADL status, Decreased upper extremity range of motion, Decreased upper extremity strength, Decreased endurance, Decreased fine motor control, Decreased functional mobility, Decreased gross motor control Prognosis: Good Evaluation/Treatment Tolerance: Patient tolerated treatment well, motivated throughout. Pt making gains in self care and mobility. After initial cues for hand placement during STS, pt with good carryover over throughout session. 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: OT Group Home Goals Dates: Start: 05/24/24 Goal: pt will be IND with lower body dressing AE PRN Dates: Start: 05/24/24 Expected End: 06/14/24 Goal: pt will be IND with upper body dressing Dates: Start: 05/24/24 Expected End: 06/14/24 Goal: pt will be IND with toilet txfer LRAD Dates: Start: 05/24/24 Expected End: 06/14/24 Goal: pt will ne IND with toileting tasks LRAD Dates: Start: 05/24/24 Expected End: 06/14/24 Goal: pt will be IND with footwear tasks AE PRN Dates: Start: 05/24/24 Expected End: 06/14/24 Problem: OT Short Term Goals Dates: Start: 05/24/24 Goal: Pt will be mod assist with upper body dressing (Resolved) Dates: Start: 05/24/24 Expected End: 05/31/24 Resolved: 05/30/24 Outcomes Date/Time User Outcome 05/30/24 08Mely Aleman OT Completed Goal: Pt will me max assist with lower body dressing AE PRN (Resolved) Dates: Start: 05/24/24 Expected End: 05/31/24 Resolved: 05/30/24 Outcomes Date/Time User Outcome 05/30/24 08Mely Aleman OT Completed Goal: Pt will be max assist with footwear AE PRN (Resolved) Dates: Start: 05/24/24 Expected End: 05/31/24 Resolved: 05/30/24 Outcomes Date/Time User Outcome 05/30/24 0844 Coby Aleman OT Completed Goal: pt will be mod assist toilet txfer LRAD Dates: Start: 05/24/24 Expected End: 05/31/24 Outcomes Date/Time User Outcome 06/07/24 1423 Theodore Clement OT Progressing Goal: pt will be max assist with toileting tasks Dates: Start: 05/24/24 Expected End: 05/31/24 Outcomes Date/Time User Outcome 06/07/24 1423 Theodore Clement OT Progressing Encounter Problems (Resolved) There are no resolved problems. Education Documentation Activity/Positioning, taught by Theodore Clement OT at 06/09/2024 8:20 AM. Learner: Patient Readiness: Acceptance Method: Explanation, Demonstration Response: Verbalizes Understanding, Demonstrated Understanding, Needs Reinforcement Body Mechanics, taught by Theodore Clement OT at 06/09/2024 8:20 AM. Learner: Patient Readiness: Acceptance Method: Explanation, Demonstration Response: Verbalizes Understanding, Demonstrated Understanding, Needs Reinforcement Home Exercise Program, taught by Theodore Clement OT at 06/09/2024 8:20 AM. Learner: Patient Readiness: Acceptance Method: Explanation, Demonstration Response: Verbalizes Understanding, Demonstrated Understanding, Needs Reinforcement ADL Training, taught by Theodore Clement OT at 06/09/2024 8:20 AM. Learner: Patient Readiness: Acceptance Method: Explanation, Demonstration Response: Verbalizes Understanding, Demonstrated Understanding, Needs Reinforcement Education Comments No comments found. Start/Stop Time OT Time Calculation OT Start Time: 0700 OT Stop Time: 0830 OT Time Calculation (min): 90 min Therapy Minutes: Occupational Therapy OT Individual: 90 * Wen Calles DO - 06/08/2024 8:07 PM EST Images from the original note were not included. [facility] Daily Progress Note Patient name: Bob Han : 1950 SUBJECTIVE: Patient seen and examined at bedside today. No acute events overnight. Denies headaches, dizziness,shortness of breath, chest pain, nausea, constipation, and pain. No new concerns today. TEAM CONFERENCE: I was present and participated in team meeting today. I agree with team conferenceplan as documented in alternate note today. Please refer to team conference note for further details. OBJECTIVE: Vitals: 06/07/24 1607 06/08/24 0228 06/08/24 0848 06/08/24 1600 BP: 126/78 117/63 125/52 135/78 BP Location: Right arm Right arm Right arm Patient Position: Lying Sitting Sitting Pulse: 63 57 54 64 Resp: Temp: 36.4 ??C (97.5 ??F) 36.7 ??C (98.1 ??F) 36.5 ??C (97.7 ??F) 36.5 ??C (97.7 ??F) TempSrc: Oral Oral Oral SpO2: 99% 96% 96% 97% Physical Examination: General: Alert, in no acute cardiopulmonary distress. Mental Status: Oriented to person, place and time. Normal affect. Head: Normocephalic. Eyes: Pupils are equal, round and reactive to light. Extraocular muscles intact. Ear, Nose and Throat: Oropharynx clear, mucous membranes moist. Ears and nose without masses, lesions or deformities. Neck: Supple, Trachea midline. Respiratory: Clear to auscultation and percussion. No wheezing, rales or rhonchi. Cardiovascular: Heart sounds normal. No thrills. Regular rate and rhythm, no murmurs, rubs or gallops. Gastrointestinal: Abdomen soft, non-tender, non-distended. Normal bowel sounds. Genitourinary: No costovertebral angle tenderness. Neurologic: Cranial nerves II-XII intact. Deep tendon reflexes +2 bilaterally. Negative Hoffmans sign bilaterally. Negative clonus bilaterally. + pronation and flexion drift of the left upper extremity with left upper extremity weakness 3+/5. Left lower extremity 5 minus/5, hyperreflexia on the left side with an extensor plantar response.Sensation intact bilaterally. Skin: No rashes or lesions. No petechiae or purpura. No edema. Musculoskeletal: No cyanosis or clubbing. No gross deformities. Strength 4/5 throughout the left upper extremity. CURRENT INPATIENT MEDICATIONS: Current Facility-Administered Medications: aluminum-magnesium hydroxide-simethicone (MAALOX) 200-200-20 mg/5 mL suspension 30 mL, 30 mL, oral,q4h PRN, Wen A Stevan, DO amLODIPine (NORVASC) tablet 5 mg, 5 mg, oral, Daily, Wen A Stevan, DO, 5 mg at 06/08/24 0852 aspirin chewable tablet 81 mg, 81 mg, oral, Daily, Wen A Stevan, DO, 81 mg at 06/08/24 0852 bisacodyL (DULCOLAX) suppository 10 mg, 10 mg, rectal, Daily PRN, Wen A Stevan, DO, 10 mg at05/26/24 1348 dextrose (D50W) 50% injection 12.5 g, 12.5 g, intravenous, q15 min PRN, ERIC Carbone dextrose (D50W) 50% injection 25 g, 25 g, intravenous, q15 min PRN, ERIC Carbone dextrose 15 gram/60 mL oral solution 15 g, 15 g, oral, q15 min PRN, ERIC Carbone dextrose 15 gram/60 mL oral solution 30 g, 30 g, oral, q15 min PRN, ERIC Carbone docusate sodium (COLACE) capsule 100 mg, 100 mg, oral, BID, Wen A Stevan, DO, 100 mg at 06/08/24 0852 ezetimibe (ZETIA) tablet 10 mg, 10 mg, oral, Daily, Wen A Stevan, DO, 10 mg at 06/08/24 0852 Glucagon HCl (rDNA) injection 1 mg, 1 mg, intramuscular, Once PRN, ERIC Carbone magnesium hydroxide (MILK OF MAGNESIA) 400 mg/5 mL suspension 30 mL, 30 mL, oral, Daily PRN, Wen A Stevna, DO, 30 mL at 05/30/24 1357 nystatin (MYCOSTATIN) 100,000 unit/gram powder, , Topical, BID, Wen A Stevan, DO, Given at 06/08/24 0852 polyethylene glycol (MIRALAX) packet 17 g, 17 g, oral, Daily, ERIC Chisholm, 17 g at 06/08/24 0852 senna (SENOKOT) tablet 17.2 mg, 2 tablet, oral, Nightly, ERIC Chisholm, 17.2 mg at 06/07/242017 LABS: Lab Results Component Value Date WBC 7.9 06/07/2024 RBC 4.70 06/07/2024 HGB 13.6 06/07/2024 HCT 41.2 (L) 06/07/2024 MCV 87.5 06/07/2024 MCHC 33.0 06/07/2024 RDW 12.8 06/07/2024 PLT 384 06/07/2024 MPV 8.5 06/07/2024 NRBC 0.0 06/07/2024 DIFF Lab Results Component Value Date LYMPHOPCT 31.2 05/24/2024 NEUTROABS 3.78 05/24/2024 LYMPHSABS 2.33 05/24/2024 MONOABS 1.08 (H) 05/24/2024 EOSABS 0.15 05/24/2024 BASOSABS 0.08 05/24/2024 IMMGRANABS 0.04 (H) 05/24/2024 RETIC No results found for: RETIC , RETICCTPCT Lab Results Component Value Date NA 134 06/07/2024 K 4.4 06/07/2024 CL 104 06/07/2024 CO2 28 06/07/2024 GLUCOSE 89 06/07/2024 BUN 20 06/07/2024 CREATININE 0.78 06/07/2024 CALCIUM 9.4 06/07/2024 PROT 6.8 06/07/2024 ALBUMIN 2.9 (L) 06/07/2024 BILITOT 0.5 06/07/2024 AST 33 06/07/2024 ALT 51 06/07/2024 ALKPHOS 114 06/07/2024 EGFR 94 06/07/2024 IMPRESSION & PLAN: #Impaired mobility and self-care -Secondary to CVA -Continue with PT/OT/speech #Acute ischmic CVA #Left hemiparesis -Aspirin 81 mg daily -Ezetimibe 10 mg daily -continue therapies -f/u Neurology after discharge #Hypertension -Amlodipine 5 mg daily #DMT2 -A1C 5.3 -Diabetic diet -ISS d/c pn 05/27 #Lumbar spinal stenosis -will plan for follow up with [facility] after discharge for further management #Insomnia -Melatonin 9mg QHS PRN discontinued on 06/03 given that medication causes fatigue the following day #Hyperammonemia, resolved -Present at [facility] on 05/17 however resolved #UTI -Amoxicillin 250mg Q8H x10 days (end date: 06/07) d/c on 05/31 and transitioned to Ceftin 250 mg BID x 7 days (completed on 06/07) #Bowel management -Colace 100mg BID -Miralax 17gm daily -Senna 2 tabs QHS DVT ppx: Continue Aspirin and ambulation with therapies as tolerated. SCDs to BLE when in bed. * Theodroe Clement, ENMA - 06/08/2024 2:33 PM EST Images from the original note were not included. [facility] [address] [place] [id number] Dept: [phone] Patient: Bob Han : 1950 Age: 74 y.o. Gender: male Room Number: 404/404-1 Diagnosis: CVA (cerebral vascular accident) ([facility]) ICD-10-CM ICD-9-CM 1. Cerebrovascular accident (CVA), unspecified mechanism ([facility]) I63.9 434.91 Ambulatory referralto Physical Therapy and Athletic Training Ambulatory referral to Occupational Therapy Ambulatory referral to Speech Therapy Past Medical History: Diagnosis Date HLD (hyperlipidemia) HTN (hypertension) Migraines Spinal stenosis History reviewed. No pertinent surgical history. Allergies: is allergic to acetaminophen, atorvastatin, glipizide, and rosuvastatin. Precautions: Medical Precautions: Fall Risk Safety Interventions: Call [place] within reach RUE Weight Bearing Status: Full LUE Weight Bearing Status: Full RLE Weight Bearing Status: Full LLE Weight Bearing Status: Full Patient presenting to IRF with CVA (cerebral vascular accident) (CMS/HCC). Pt presents with L UE/LEweakness, impaired standing tolerance, and impaired dynamic balance. Pt requires use of a tub txferbench to perform tub txfers safely. Not recommending that pt perform tub txfer without use of a tubbench. Pt does perform majority of bathing tasks form seated position. Due to deficits, pt has difficulty standing from low surfaces without UE support, thus recommending that pt utilize safety frameto maximize safety and independence with toilet txfers. * Theodore Clement OT - 06/08/2024 12:30 PM EST [facility] Occupational Therapy Treatment Note 06/08/24 Patient: Bob Han : 1950 Age: 74 y.o. Gender: male Diagnosis: CVA (cerebral vascular accident) ([facility]) Primary Rehab (Etiologic) Diagnosis: Patient Active Problem List Diagnosis CVA (cerebral vascular accident) ([facility]) PMH: Past Medical History: Diagnosis Date HLD (hyperlipidemia) HTN (hypertension) Migraines Spinal stenosis PSH: History reviewed. No pertinent surgical history. Allergies: is allergic to acetaminophen, atorvastatin, glipizide, and rosuvastatin. Precautions: Precautions Medical Precautions: Fall Risk Safety Interventions: Call [place] within reach RUE Weight Bearing Status: Full LUE Weight Bearing Status: Full RLE Weight Bearing Status: Full LLE Weight Bearing Status: Full Subjective: this works great (tub bench) Procedures/Interventions: ADLs/IADLs Self Care/Home Management (ADLs) Time Entry: 60 Pt seated in w/c upon arrival with MILO Rapp present for training. Larry provided handout for SBQC from PT. Larry providing measurement of toilet abigail at home - 16 . Toilet in room measuring at 17.5 . Larry assisted pt into bathroom with SBQC. Txfer onto toilet with use of L UE on grab bar. Seated pt voided, unable to have BM, however pt did have gas. STS from toilet with Larry assisting and L UEon grab bar. In stand pt performed posterior hygiene with steadying A from Larry. Pt opting to sit to retreive LB clothing from floor, pt able to perform with S. In stand partial A to hike on L side,provided from Larry. Larry reporting no where to place grab bar around toilet in upstairs bathroom. Education provided on options for DME. Pt performed hand hygiene in stand with Larry assisting withbalance. Larry cued for UE placement, for not grabbing onto L UE, correcting hand position appropriately. Larry providing photos of bathroom. In ADL bathroom Larry and pt educated on tub txfer bench. [place] [facility] [place] bench steadying A from Larry. Verbal cues for hand placement during sit. Once seated pt able to transition B Les over tub threshold with increased time and verbal cues for sequencing/body mechanics. Larry reporting that he plans to purchase hand held shower. Education provided for shower curtainpositioning to limiting water leaking from shower. Provided education on toilet DME via computer including commode/safety frame/elevated seat with hand rails. Pt reporting preference for toilet safety frame. Printed handouts provided with Larry. Pt and SO shown video of how to install Toilet safety frame. Pt and So agreeable to urinals for nighttime use. Balance/Neuromuscular Re-Education Neuromuscular Re-Education Time Entry: 30 Seated at tabletop pt engaged in NMRE task with L UE to target coordination and strength. Pt taskedwith picking up large pegs from table top, and placing them into peg mat with L UE, pt initially utilizing R UE to re-position peg in L hand. Pt performed X mass reps progressing to manipulating in Lhand minimally, with occasional use of R UE. Pt performed x mass reps with rest break between pegs.Occasional cues for re-direction. Pt then tasked with removing pegs form peg mat and placing them into bucket across midline. Pt dep wheeled back to room for energy conservation, pt seated in w/c with all needs met, call [place] in reach, chair alarm on, and HEP provided on table. OT Assessment OT Assessment OT Assessment Results: Decreased ADL status, Decreased upper extremity range of motion, Decreased upper extremity strength, Decreased endurance, Decreased fine motor control, Decreased functional mobility, Decreased gross motor control Prognosis: Good Evaluation/Treatment Tolerance: Patient tolerated treatment well, fatigue noted in Les. Further family training completed with MILO Rapp and dicussed reccommended DME for home. Larry with no further questions at this time. 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 Goals Dates: Start: 05/24/24 Goal: pt will be IND with lower body dressing AE PRN Dates: Start: 05/24/24 Expected End: 06/14/24 Goal: pt will be IND with upper body dressing Dates: Start: 05/24/24 Expected End: 06/14/24 Goal: pt will be IND with toilet txfer LRAD Dates: Start: 05/24/24 Expected End: 06/14/24 Goal: pt will ne IND with toileting tasks LRAD Dates: Start: 05/24/24 Expected End: 06/14/24 Goal: pt will be IND with footwear tasks AE PRN Dates: Start: 05/24/24 Expected End: 06/14/24 Problem: OT Short Term Goals Dates: Start: 05/24/24 Goal: Pt will be mod assist with upper body dressing (Resolved) Dates: Start: 05/24/24 Expected End: 05/31/24 Resolved: 05/30/24 Outcomes Date/Time User Outcome 05/30/24 08Mely Aleman OT Completed Goal: Pt will me max assist with lower body dressing AE PRN (Resolved) Dates: Start: 05/24/24 Expected End: 05/31/24 Resolved: 05/30/24 Outcomes Date/Time User Outcome 05/30/24 08Mely Aleman OT Completed Goal: Pt will be max assist with footwear AE PRN (Resolved) Dates: Start: 05/24/24 Expected End: 05/31/24 Resolved: 05/30/24 Outcomes Date/Time User Outcome 05/30/24 08Mely Aleman OT Completed Goal: pt will be mod assist toilet txfer LRAD Dates: Start: 05/24/24 Expected End: 05/31/24 Outcomes Date/Time User Outcome 06/07/24 1423 Theodore Clement OT Progressing Goal: pt will be max assist with toileting tasks Dates: Start: 05/24/24 Expected End: 05/31/24 Outcomes Date/Time User Outcome 06/07/24 1423 Theodore Clement OT Progressing Encounter Problems (Resolved) There are no resolved problems. Education Documentation Safe Use of DME, taught by Theodore Clement OT at 06/08/2024 2:32 PM. Learner: Significant Other, Patient Readiness: Acceptance Method: Explanation, Demonstration, Handout, Video Response: Verbalizes Understanding, Demonstrated Understanding The Cost of DME, Purchase and Rental, taught by Theodore Clement OT at 06/08/2024 2:32 PM. Learner: Significant Other, Patient Readiness: Acceptance Method: Explanation, Demonstration, Handout, Video Response: Verbalizes Understanding, Demonstrated Understanding How to Obtain Needed DME, taught by Theodore Clement OT at 06/08/2024 2:32 PM. Learner: Significant Other, Patient Readiness: Acceptance Method: Explanation, Demonstration, Handout, Video Response: Verbalizes Understanding, Demonstrated Understanding Caregiver Support, taught by Theodore Clement OT at 06/08/2024 2:32 PM. Learner: Significant Other, Patient Readiness: Acceptance Method: Explanation, Demonstration, Handout, Video Response: Verbalizes Understanding, Demonstrated Understanding Home Modifications, taught by Theodore Clement OT at 06/08/2024 2:32 PM. Learner: Significant Other, Patient Readiness: Acceptance Method: Explanation, Demonstration, Handout, Video Response: Verbalizes Understanding, Demonstrated Understanding Insurance Coverage, taught by Theodore Clement OT at 06/08/2024 2:32 PM. Learner: Significant Other, Patient Readiness: Acceptance Method: Explanation, Demonstration, Handout, Video Response: Verbalizes Understanding, Demonstrated Understanding Activity/Positioning, taught by Theodore Clement OT at 06/08/2024 2:32 PM. Learner: Significant Other, Patient Readiness: Acceptance Method: Explanation, Demonstration, Handout, Video Response: Verbalizes Understanding, Demonstrated Understanding Discharge Planning, taught by Theodore Clement OT at 06/08/2024 2:32 PM. Learner: Significant Other, Patient Readiness: Acceptance Method: Explanation, Demonstration, Handout, Video Response: Verbalizes Understanding, Demonstrated Understanding Body Mechanics, taught by Theodore Clement OT at 06/08/2024 2:32 PM. Learner: Significant Other, Patient Readiness: Acceptance Method: Explanation, Demonstration, Handout, Video Response: Verbalizes Understanding, Demonstrated Understanding Home Exercise Program, taught by Theodore Clement OT at 06/08/2024 2:32 PM. Learner: Significant Other, Patient Readiness: Acceptance Method: Explanation, Demonstration, Handout, Video Response: Verbalizes Understanding, Demonstrated Understanding ADL Training, taught by Theodore Clement OT at 06/08/2024 2:32 PM. Learner: Significant Other, Patient Readiness: Acceptance Method: Explanation, Demonstration, Handout, Video Response: Verbalizes Understanding, Demonstrated Understanding Education Comments No comments found. Start/Stop Time OT Time Calculation OT Start Time: 1230 OT Stop Time: 1400 OT Time Calculation (min): 90 min Therapy Minutes: Occupational Therapy OT Individual: 90 * Samy Esteban LCSW - 06/08/2024 12:26 PM EST Team Meeting: Met with pt at bedside to review post team recommendations. Larry present. Family training initiated today. Pt is a tentative discharge home on Thursday06/15/24 pending progress, participation and insurance approval. Plan is to follow up with OP PT OT and [facility]K [facility]UIDS [facility]LER at [facility]. Larry willbe assisting with all IADLS and ADLS as needed on discharge. Larry feels confident with additional family training he will be able to assist at home. Larry questioning current medications, RN to review. Larry aware all medications will be reviewed again on discharge. Confirmed pharmacy. Pt and Larry aware, pt will follow up with PCP for hospital follow up who will then make referral to [facility]. Pt and Larry had no further questions or concerns at this time. * Mirlande Aquino, PT - 06/08/2024 11:49 AM EST [facility] Physical Therapy Treatment Note 06/08/2024 Patient: Bob Han : 1950 Age: 74 y.o. Gender: male Primary Language: Argentine Diagnosis: CVA (cerebral vascular accident) (CMS/HCC) Past Medical History: Diagnosis Date HLD (hyperlipidemia) HTN (hypertension) Migraines Spinal stenosis History reviewed. No pertinent surgical history. Allergies: is allergic to acetaminophen, atorvastatin, glipizide, and rosuvastatin. Precautions: Medical Precautions: Fall Risk Safety Interventions: Call [place] within reach RUE Weight Bearing Status: Full LUE Weight Bearing Status: Full RLE Weight Bearing Status: Full LLE Weight Bearing Status: Full SUBJECTIVE Pt report: I'm doing good. Pain: 0/10 OBJECTIVE General Observation: Seated in agreeable to participating in therapy session. Procedure/Treatment: Neuromuscular Reeducation: Balance/Neuromuscular Re-Education Neuromuscular Re-Education Time Entry: 60 Pt seated in agreeable to participating in therapy session. Pt completed mobility SUP down totherapy gym. Pt completed 2x40ft of ambulation with SBQC, pt with step to and step through gait pattern steadying assistance. Pts significant other Larry present. Therapist providing demonstration, on how to provide hands on assistance. Larry able to provide return demonstration, 2x40ft of ambulation with appropriate cues during ambulation. Therapist and pt completed x8 stairs with RUE on L ascending rail cues for step to pattern leading with RLE and descending with LLE, pt needing mod cues, partial A for more than steadying assistance on stairs. Therapist providing education on appropriate hand placement for stairs. Larry able to return demonstrate assistance on stairs, appropriately cued pt, pt completed x12 stairs L ascending rail with RUE support. Therapist providing demonstration with x2 platform steps with SBQC ,pt needing partial A for platform step. Pt and peter completed platform step with SBQC, therapist providing SBA, lrary needing cues on first trial to ascend and descend platform step. Peter and pt able to return demonstrate appropriate assistance on platform step with appropriate cues provided. Therapist providing education pt to be level for community level, recommending use of SBQC inside. Pt dep brought back to room In . Pt left seated in WC, call [place] in re ach, chair alarm on, all needs met. Education: Education Documentation Mobility Training, taught by Mirlande Aquino PT at 06/08/2024 12:05 PM. Learner: Significant Other, Patient Readiness: Acceptance Method: Explanation, Demonstration Response: Verbalizes Understanding, Demonstrated Understanding Comment: DC planning, DME, family training. Education Comments No comments found. ASSESSMENT Peter able to provide appropriate assistance for functional mobility. Therapist scheduling continued training for Thursday06/13/2024. PT Assessment PT Assessment Results: Decreased strength, Decreased range of motion, Decreased endurance, Impairedbalance, Impaired gait Prognosis: Good Equipment: TBD Plan of Care Plan Treatment/Interventions: Functional transfer training, LE strengthening/ROM, Endurance training, Cognitive reorientation, Bed mobility, Gait training, Balance training, Continued evaluation, Compensatory technique education PT Plan: Skilled PT PT Frequency: 5-7 days per week PT Duration of Sessions: 60-90 min per session PT Treatments per day: 1 time per day PT Discharge Recommendations: Other (Comment) (TBD) Problems/Goals Goals: Encounter Problems Encounter Problems (Active) Template: Physical Therapy Problem: PT Master Sonar Technician Goals Dates: Start: 05/24/24 Goal: mod-I ambulation x150ft Dates: Start: 05/24/24 Outcomes Date/Time User Outcome 06/04/24Rae Aquino PT Progressing Goal: mod-I x12 stairs unilat. railing Dates: Start: 05/24/24 Outcomes Date/Time User Outcome 06/04/2419 Mirlande Aquino PT Progressing Goal: mod-I bed mobility Dates: Start: 05/24/24 Outcomes Date/Time User Outcome 06/04/24Rae Aquino PT Progressing Goal: mod-I transfers Dates: Start: 05/24/24 Outcomes Date/Time User Outcome 06/04/24Rae Aquino PT Progressing Problem: PT Short Term Goals Dates: Start: 05/24/24 Goal: SUP bed mobility Dates: Start: 05/24/24 Outcomes Date/Time User Outcome 06/04/2419 Mirlande Aquino PT Progressing Goal: partial A transfers LRAD (Resolved) Dates: Start: 05/24/24 Resolved: 05/31/24 Outcomes Date/Time User Outcome 05/31/24 1137 Mirlande Aquino PT Completed Goal: partial A x50ft LRAD ambulation Dates: Start: 05/24/24 Outcomes Date/Time User Outcome 06/04/24 0919 Mirlande Aquino PT Progressing Goal: partial A x4 stairs (Resolved) Dates: Start: 05/24/24 Resolved: 05/31/24 Outcomes Date/Time User Outcome 05/31/24 1137 Mirlande Aquino PT Completed Encounter Problems (Resolved) There are no resolved problems. Session Start/Stop Time: 1000 1100 Therapy Minutes Physical Therapy PT Individual: 60 * Jana Jimenez, BULK FLUIDS HANDLER - 06/08/2024 9:15 AM EST Speech Language Pathology Speech Language Pathology Treatment Subjective BULK FLUIDS HANDLER Start Time: 914 BULK FLUIDS HANDLER Stop Time: 1015 BULK FLUIDS HANDLER Time Calculation (min): 60 min Subjective: Session split 9:15-9:45, 2:45-3:15. Pt agreeable to ST. Vitals/Pain Pt did not report pain. Objective General Visit Info General Family/Caregiver Present: No Treatment Cognitive Skills Therapeutic Interventions Cognitive Skills Direct Contact Time Entry: 60 Memory: Pt tasked with encoding BEFAST acronym during stroke education task: min to max verbal cuesfor encoding, after short delay: required min to max verbal cues to recall 6/6 components. Pt easier recall with components that happened to him during his stroke. Other Cognitive Skills Activity: Extensive educational discussion/training re: stroke and habits topromote further cognitive recovery after discharge. Pt provided with central handout for risk factors, preventing future stroke, and BEFAST acronym. Pt tasked with identifying his own risk factors - indp. Pt then tasked with generating alternatives to risk factors, such as smoking and high cholesterol diet. With this service writer advisor, Pt generated to manage stress, he will go for walks in nice weather or read instead of smoking. Pt also able to generate healthy alternatives to promote a healthy diet after discharge. Discussed specific foods Pt likes to consume that may contribute to high cholesterol. Pt indp stated he will eliminate unnecessary stress or unsafe activities from daily routine. Additional discussion conducted re: 8 habits to improve cognitive function: provided Pt with educational handouts and discussed how Pt could implement each into daily routine. Pt verbalized understanding and agreement. Comments Comments: Session split 9:15-9:45, 2:45-3:15. Pt tearful during second session. Expressing concern over cognitive and physical burden on spouse. Provided positive reassurance that spouse will benefitfrom caregiver training. Pt agreed. Assessment/Plan BULK FLUIDS HANDLER Assessment Evaluation/Treatment Tolerance: Patient tolerated treatment well Plan Treatment/Interventions: Cognitive linguistic functioning BULK FLUIDS HANDLER Plan: Skilled BULK FLUIDS HANDLER BULK FLUIDS HANDLER Frequency: 5-7 days per week BULK FLUIDS HANDLER Duration of Sessions: 30-60 min per session BULK FLUIDS HANDLER Treatments per day: 1 time per day BULK FLUIDS HANDLER Discharge Recommendations: Outpatient BULK FLUIDS HANDLER BULK FLUIDS HANDLER - Next Appointment: 06/09/24 Goals Encounter Problems Encounter Problems (Active) Template: Speech Therapy Problem: BULK FLUIDS HANDLER Group Home Goals Dates: Start: 05/24/24 Goal: Pt will improve cognitive linguistic skills to maximize indp for safe d/c back to community. Dates: Start: 05/24/24 Expected End: 06/14/24 Outcomes Date/Time User Outcome 06/08/24 1616 LORNE Romero Progressing Problem: BULK FLUIDS HANDLER Short Term Goals Dates: Start: 05/24/24 Goal: Pt will participate in additional cognitive linguistic assessment. (Resolved) Dates: Start: 05/24/24 Expected End: 05/27/24 Resolved: 06/01/24 Outcomes Date/Time User Outcome 06/01/24 1227 LORNE Bach Completed Goal: Pt will improve immediate and delayed recall of functional information to 80% accuracy given mod A for strategies. (Resolved) Dates: Start: 05/24/24 Expected End: 05/31/24 Resolved: 06/04/24 Outcomes Date/Time User Outcome 06/04/24 1400 LORNE Bach Completed Goal: Pt will participate in basic convergent/divergent categorization tasks at 80% accuracy given mod A. (Resolved) Dates: Start: 05/24/24 Expected End: 05/31/24 Resolved: 06/04/24 Outcomes Date/Time User Outcome 06/04/24 1400 LORNE Bach Completed Goal: Pt will participate in basic mental flexibility/working memory tasks at 80% accuracy given mod A. Dates: Start: 05/24/24 Expected End: 06/07/24 Outcomes Date/Time User Outcome 05/26/24 1408 LORNE Bach Not Progressing Goal: Pt will complete functional tasks targeting executive functioning skills (planning, organization, mental flexibility) at 80% accuracy given mod A. Dates: Start: 05/25/24 Expected End: 06/08/24 Description: Outcomes Date/Time User Outcome 06/02/24 LORNE Fajardo Not Progressing Goal: Pt will complete sequencing tasks w/ 90% accuracy given mod A Dates: Start: 05/26/24 Expected End: 06/08/24 Description: Outcomes Date/Time User Outcome 06/02/24 LORNE Fajardo Not Progressing Goal: Pt will be able to answer problem-solving/reasoning tasks related to safety and ADLs w/ 90% accuracy given min A (Resolved) Dates: Start: 05/26/24 Expected End: 06/02/24 Resolved: 06/04/24 Description: Outcomes Date/Time User Outcome 06/04/24 LORNE Chery Completed Goal: Pt will be able to identify 2 post-stroke deficits given min A (Resolved) Dates: Start: 05/27/24 Expected End: 06/03/24 Resolved: 06/04/24 Description: Outcomes Date/Time User Outcome 06/04/24 LORNE Chery Completed Goal: Pt will improve immediate and delayed recall of functional information to 80% accuracy given min A for encoding and indep. for retrieval Dates: Start: 06/04/24 Expected End: 06/11/24 Description: Outcomes Date/Time User Outcome 06/07/24 LORNE Wolff Progressing Goal: Pt will participate in higher level naming tasks w/ 90% accuracy given min A Dates: Start: 06/04/24 Expected End: 06/11/24 Description: Outcomes Date/Time User Outcome 06/07/24 CarlottaLORNE Salgado Not Progressing Goal: Pt will improve attention w/ mod-higher level visual and/or auditory tasks w/ 80% accuracy given min A Dates: Start: 06/04/24 Expected End: 06/11/24 Description: Outcomes Date/Time User Outcome 06/07/24 LORNE Wolff Not Progressing Goal: Pt will complete functional problem-solving/calculations tasks w/ 80% accuracy given mod A Dates: Start: 06/04/24 Expected End: 06/11/24 Description: Outcomes Date/Time User Outcome 06/07/24 1047 LORNE Romero Progressing Encounter Problems (Resolved) There are no resolved problems. Education Documentation Cognition, taught by LORNE Romero at 06/08/2024 9:15 AM. Learner: Patient Readiness: Eager Method: Explanation, Handout Response: Verbalizes Understanding, Needs Reinforcement Education Comments No comments found. Cosigned by LORNE Rodriguez at 06/09/2024 1:07 PM EST Associated attestation - Corina Curran SLP - 06/09/2024 1:07 PM EST I attest that I, Coby Curran M.S.,[facility]-BULK FLUIDS HANDLER, was physically involved in the ongoing assessment, decision making, and interventions provided during today's patient care session. I have reviewed all documentation for today's 06/08/24, entered by Speech Therapy Fellow, Jana Cesar, and further attest that it is an accurate clinical record of today's encounter, including accurate and appropriatecharges. * Carmenza Lazo RN - 06/08/2024 1:47 AM EST Problem: Cognitive: Womack Michael Fall Risk Goal: Last Known Fall Outcome: Progressing Goal: Mobility requiring assistance of person or device Outcome: Progressing Goal: Dizziness Outcome: Progressing Goal: Medications Outcome: Progressing Goal: Mental Status/LOC/Awareness Outcome: Progressing Goal: Toileting Needs Outcome: Progressing Goal: Volume and Electrolyte Status Outcome: Progressing Goal: Communication/Sensory Outcome: Progressing Goal: Behavior Outcome: Progressing Goals: Clinical Goals for the Shift: Become oriented to unit/floor/staff. To sleep better. Identify possible barriers to meeting goals/advancing plan of care: Pt working towards rehab goals. Stability of the patient: Moderately Unstable - Medium risk of patient condition declining or worsening End of Shift Summary: Pt sleeping well at night, no complaints of pain, no signs of distress. Uses the urinal independently. Call [place] in reach. Pt encouraged to use the call [place] for assist with anyneeds. Hourly and prn safety checks maintained throughout the night. * ERIC Carbone - 06/07/2024 1:10 PM EST Images from the original note were not included. [facility] Daily Progress Note Patient name: Bob Han : 1950 SUBJECTIVE: Patient seen and examined at bedside today. No acute events overnight. Denies headaches, dizziness,shortness of breath, chest pain, nausea, constipation, and pain. Reports his LUE seems to be getting stronger each day and he is happy with the progress he has made OBJECTIVE: Vitals: 06/06/24 0843 06/06/24 1555 06/06/24 2344 06/07/24 0810 BP: 133/63 (!) 142/73 134/65 122/62 BP Location: Right arm Right arm Patient Position: Lying Sitting Pulse: 55 68 57 54 Resp: 18 16 Temp: 36.5 ??C (97.7 ??F) 36.3 ??C (97.3 ??F) 36.4 ??C (97.5 ??F) 36.8 ??C (98.2 ??F) TempSrc: Oral Oral Oral SpO2: 96% 96% 95% 96% Physical Examination: General: Alert, in no acute cardiopulmonary distress. Mental Status: Oriented to person, place and time. Normal affect. Head: Normocephalic. Eyes: Pupils are equal, round and reactive to light. Extraocular muscles intact. Ear, Nose and Throat: Oropharynx clear, mucous membranes moist. Ears and nose without masses, lesions or deformities. Neck: Supple, Trachea midline. Respiratory: Clear to auscultation and percussion. No wheezing, rales or rhonchi. Cardiovascular: Heart sounds normal. No thrills. Regular rate and rhythm, no murmurs, rubs or gallops. Gastrointestinal: Abdomen soft, non-tender, non-distended. Normal bowel sounds. Genitourinary: No costovertebral angle tenderness. Neurologic: Cranial nerves II-XII intact. Deep tendon reflexes +2 bilaterally. Negative Hoffmans sign bilaterally. Negative clonus bilaterally. + pronation and flexion drift of the left upper extremity with left upper extremity weakness 3+/5. Left lower extremity 5 minus/5, hyperreflexia on the left side with an extensor plantar response.Sensation intact bilaterally. Skin: No rashes or lesions. No petechiae or purpura. No edema. Musculoskeletal: No cyanosis or clubbing. No gross deformities. Normal range of motion to RUE and b/l LE. Limited rom due to weakness on LUE (3/5 strength throughout left upper extremity) CURRENT INPATIENT MEDICATIONS: Current Facility-Administered Medications: aluminum-magnesium hydroxide-simethicone (MAALOX) 200-200-20 mg/5 mL suspension 30 mL, 30 mL, oral,q4h PRN, Wen A Stevan, DO amLODIPine (NORVASC) tablet 5 mg, 5 mg, oral, Daily, Wen A Stevan, DO, 5 mg at 06/07/24 0810 aspirin chewable tablet 81 mg, 81 mg, oral, Daily, Wen A Stevan, DO, 81 mg at 06/07/24 0810 bisacodyL (DULCOLAX) suppository 10 mg, 10 mg, rectal, Daily PRN, Wen A Stevan, DO, 10 mg at05/26/24 1348 dextrose (D50W) 50% injection 12.5 g, 12.5 g, intravenous, q15 min PRN, Tahmina Hanna, ERIC dextrose (D50W) 50% injection 25 g, 25 g, intravenous, q15 min PRN, Tahmina Bonebb, PA dextrose 15 gram/60 mL oral solution 15 g, 15 g, oral, q15 min PRN, Radhaanita Jacques, PA dextrose 15 gram/60 mL oral solution 30 g, 30 g, oral, q15 min PRN, Tahmina Hanna, PA docusate sodium (COLACE) capsule 100 mg, 100 mg, oral, BID, Wen A Stevan, DO, 100 mg at 06/05/242008 ezetimibe (ZETIA) tablet 10 mg, 10 mg, oral, Daily, Wen A Stevan, DO, 10 mg at 06/07/24 0810 Glucagon HCl (rDNA) injection 1 mg, 1 mg, intramuscular, Once PRN, ERIC Carbone magnesium hydroxide (MILK OF MAGNESIA) 400 mg/5 mL suspension 30 mL, 30 mL, oral, Daily PRN, Wen Calles DO, 30 mL at 05/30/24 1357 nystatin (MYCOSTATIN) 100,000 unit/gram powder, , Topical, BID, Wen Calles DO, Given at 06/07/24 0813 polyethylene glycol (MIRALAX) packet 17 g, 17 g, oral, Daily, ERIC Chisholm, 17 g at 06/02/24 0836 senna (SENOKOT) tablet 17.2 mg, 2 tablet, oral, Nightly, ERIC Chisholm, 17.2 mg at 06/05/242007 LABS: Lab Results Component Value Date WBC 7.9 06/07/2024 RBC 4.70 06/07/2024 HGB 13.6 06/07/2024 HCT 41.2 (L) 06/07/2024 MCV 87.5 06/07/2024 MCHC 33.0 06/07/2024 RDW 12.8 06/07/2024 PLT 384 06/07/2024 MPV 8.5 06/07/2024 NRBC 0.0 06/07/2024 DIFF Lab Results Component Value Date LYMPHOPCT 31.2 05/24/2024 NEUTROABS 3.78 05/24/2024 LYMPHSABS 2.33 05/24/2024 MONOABS 1.08 (H) 05/24/2024 EOSABS 0.15 05/24/2024 BASOSABS 0.08 05/24/2024 IMMGRANABS 0.04 (H) 05/24/2024 RETIC No results found for: RETIC , RETICCTPCT Lab Results Component Value Date NA 134 06/07/2024 K 4.4 06/07/2024 CL 104 06/07/2024 CO2 28 06/07/2024 GLUCOSE 89 06/07/2024 BUN 20 06/07/2024 CREATININE 0.78 06/07/2024 CALCIUM 9.4 06/07/2024 PROT 6.8 06/07/2024 ALBUMIN 2.9 (L) 06/07/2024 BILITOT 0.5 06/07/2024 AST 33 06/07/2024 ALT 51 06/07/2024 ALKPHOS 114 06/07/2024 EGFR 94 06/07/2024 IMPRESSION & PLAN: #Impaired mobility and self-care -Secondary to CVA -Continue with PT/OT/speech #Acute ischmic CVA #Left hemiparesis -Aspirin 81 mg daily -Ezetimibe 10 mg daily -continue therapies -f/u Neurology after discharge #Hypertension -Amlodipine 5 mg daily #DMT2 -A1C 5.3 -Diabetic diet -ISS d/c pn 05/27 #Lumbar spinal stenosis -will plan for follow up with [facility] after discharge for further management #Insomnia -Melatonin 9mg QHS PRN discontinued on 06/03 given that medication causes fatigue the following day #Hyperammonemia, resolved -Present at [facility] on 05/17 however resolved #UTI -Amoxicillin 250mg Q8H x10 days (end date: 06/07) d/c on 05/31 and transitioned to Ceftin 250 mg BID x 7 days (end date: 06/07) #Bowel management -Colace 100mg BID -Miralax 17gm daily -Senna 2 tabs QHS DVT ppx: Continue Aspirin and ambulation with therapies as tolerated. SCDs to BLE when in bed. Cosigned by Wen Calles DO at 06/08/2024 9:01 AM EST Associated attestation - Wen Calles DO - 06/08/2024 9:01 AM EST Agree with progress note, assessment, and plan as documented by PA today. * Theodore Clement, OT - 06/07/2024 12:30 PM EST [facility] Occupational Therapy Treatment Note 06/07/24 Patient: Bob Han : 1950 Age: 74 y.o. Gender: male Diagnosis: CVA (cerebral vascular accident) (CMS/HCC) Primary Rehab (Etiologic) Diagnosis: Patient Active Problem List Diagnosis CVA (cerebral vascular accident) (CMS/HCC) PMH: Past Medical History: Diagnosis Date HLD (hyperlipidemia) HTN (hypertension) Migraines Spinal stenosis PSH: History reviewed. No pertinent surgical history. Allergies: is allergic to acetaminophen, atorvastatin, glipizide, and rosuvastatin. Precautions: Precautions Medical Precautions: Fall Risk Safety Interventions: Call [place] within reach RUE Weight Bearing Status: Full LUE Weight Bearing Status: Full RLE Weight Bearing Status: Full LLE Weight Bearing Status: Full Subjective: Oh yeah, I need to reach back. Procedures/Interventions: ADLs/IADLs Self Care/Home Management (ADLs) Time Entry: 60 pt seated in w/c upon arrival agreeable to planned shower. Pt provided photos of bathroom set up, depicting enough room for a tub bench. Pt completed short distance mobility from across hallway to shower stall, with SBQC with steadying A. txfer to shower chair with steadying A and verbal cues for body mechanics. Pt doffed LB clothing with steadying A in stand, luciano to remove from around feet while seated. Assist to doff socks following unsuccessful attempts. pt doffed shirt with clean up assist. Bathing performed mainly seated with use of hand held shower. STS steayding A with verbal cues forL UE support on grab bar to steady balance. Pt able to bathe abigail area and buttocks with steayding A. Pt completed remiander of bathing with verbal cues for thoroughness, pt incorporating L UE with min verbal cues. Pt able to reach B feet while seated with figure four technique. Once back in room pt dressed UB with POST, no cues for carryover of laurel dressing technique, increased time and cues for re-direction. STS steayding A with verbal cues for UE placement. RN present to visualize buttocks and apply new Allevyn post shower. While seated, Pt able to thread B LEs through underwear and shorts with increased time with good carryvoer over laurel dressing technique. In stand, pt able to hike pants over hips with steayding A and tactile cues for identifying that shorts neededto be hiked up fully on L side, which pt able to hike up with R UE. Balance/Neuromuscular Re-Education Neuromuscular Re-Education Time Entry: 30 pt engaged in NMRE task to target functional use of L UE. Pt tasked with utilizing 3 jaw ayaz pinch to retrieve blocks from table top and place them into bucket placed anteriorly and across midline.Initial muscle belly tapping to L triceps to facilitate ebow extension during reaching; tapping faded as pt able to achieve on own. Cues for not utilizing edge of bucket to drag blocks out of fingers. pt educated on rest breaks in order to maximize function. post rest break pt able to sustain shoulder flexion over bucket with targeted release of objects. Pt provided with small bucket and blocks for HEP in down time. Pt instructed to dump out blocks and place them back into bucket with L UE and to stack blocks. End of session pt seated in w/c with chair alarm on, call [place] in reach, and all needs met. OT Assessment OT Assessment OT Assessment Results: Decreased ADL status, Decreased upper extremity range of motion, Decreased upper extremity strength, Decreased endurance, Decreased fine motor control, Decreased functional mobility, Decreased gross motor control Prognosis: Good Evaluation/Treatment Tolerance: Patient tolerated treatment well, making good progress with self care tasks and functional mobility. Plan for MILO Rapp to come in for additional family training tomorrow. Motor apraxia continues to be barrier to L E use. Pt would benefit from continued NMRE to maximize strength in L UE and to increase functional use. 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: OT Group Home Goals Dates: Start: 05/24/24 Goal: pt will be IND with lower body dressing AE PRN Dates: Start: 05/24/24 Expected End: 06/14/24 Goal: pt will be IND with upper body dressing Dates: Start: 05/24/24 Expected End: 06/14/24 Goal: pt will be IND with toilet txfer LRAD Dates: Start: 05/24/24 Expected End: 06/14/24 Goal: pt will ne IND with toileting tasks LRAD Dates: Start: 05/24/24 Expected End: 06/14/24 Goal: pt will be IND with footwear tasks AE PRN Dates: Start: 05/24/24 Expected End: 06/14/24 Problem: OT Short Term Goals Dates: Start: 05/24/24 Goal: Pt will be mod assist with upper body dressing (Resolved) Dates: Start: 05/24/24 Expected End: 05/31/24 Resolved: 05/30/24 Outcomes Date/Time User Outcome 05/30/24 08Mely Aleman OT Completed Goal: Pt will me max assist with lower body dressing AE PRN (Resolved) Dates: Start: 05/24/24 Expected End: 05/31/24 Resolved: 05/30/24 Outcomes Date/Time User Outcome 05/30/24 08Mely Aleman OT Completed Goal: Pt will be max assist with footwear AE PRN (Resolved) Dates: Start: 05/24/24 Expected End: 05/31/24 Resolved: 05/30/24 Outcomes Date/Time User Outcome 05/30/24 08Mely Aleman OT Completed Goal: pt will be mod assist toilet txfer LRAD Dates: Start: 05/24/24 Expected End: 05/31/24 Goal: pt will be max assist with toileting tasks Dates: Start: 05/24/24 Expected End: 05/31/24 Encounter Problems (Resolved) There are no resolved problems. Education Documentation Activity/Positioning, taught by Theodore Clement OT at 06/07/2024 2:07 PM. Learner: Patient Readiness: Acceptance Method: Explanation, Demonstration Response: Verbalizes Understanding, Demonstrated Understanding Body Mechanics, taught by Theodore Clement OT at 06/07/2024 2:07 PM. Learner: Patient Readiness: Acceptance Method: Explanation, Demonstration Response: Verbalizes Understanding, Demonstrated Understanding Home Exercise Program, taught by Theodore Clement OT at 06/07/2024 2:07 PM. Learner: Patient Readiness: Acceptance Method: Explanation, Demonstration Response: Verbalizes Understanding, Demonstrated Understanding ADL Training, taught by Theodore Clement OT at 06/07/2024 2:07 PM. Learner: Patient Readiness: Acceptance Method: Explanation, Demonstration Response: Verbalizes Understanding, Demonstrated Understanding Education Comments No comments found. Start/Stop Time OT Time Calculation OT Start Time: 1230 OT Stop Time: 1400 OT Time Calculation (min): 90 min Therapy Minutes: Occupational Therapy OT Individual: 90 * Harini Mejia PTA - 06/07/2024 12:00 PM EST [facility] Physical Therapy Treatment Note 06/07/2024 Patient: Bob Han : 1950 Age: 74 y.o. Gender: male Primary Language: Argentine Diagnosis: CVA (cerebral vascular accident) (CMS/HCC) Past Medical History: Diagnosis Date HLD (hyperlipidemia) HTN (hypertension) Migraines Spinal stenosis History reviewed. No pertinent surgical history. Allergies: is allergic to acetaminophen, atorvastatin, glipizide, and rosuvastatin. Precautions: Medical Precautions: Fall Risk Safety Interventions: Call [place] within reach RUE Weight Bearing Status: Full LUE Weight Bearing Status: Full RLE Weight Bearing Status: Full LLE Weight Bearing Status: Full SUBJECTIVE Pt report: I got to keep that knee straight Procedure/Treatment: Therapeutic Activities: Therapeutic Activity Time Entry: 90 Therapeutic Activity 1: pt in w/c, assist to don socks and shoes sitting in w/c. w/c mob with LEs room to/from gym Sup increased time taken. xfers sit to/from stand from w/c cues for hand placements steadying assist. steadying assist amb with SBQC 50' x 2 including turns cues for posture, improved knee ext, complete turn to sit and stepping back with LLE. cone slalom with SBQC 5 cones x 50' steadying assist and cues for clearing cones. up and down 4 steps x 3 with left sided railing STS steadying assist, sitting rest and the up and down 4 steps x 3 with left railing ascending STS steadying/partial assist. sidestepping left and right x 5' with SBQC steadying/partial assist, backwards amb with SBQC 2 x 10' partial assist. Education: Education Documentation Body Mechanics, taught by Harini Mejia PTA at 06/07/2024 11:59 AM. Learner: Patient Readiness: Acceptance Method: Explanation, Demonstration Response: Verbalizes Understanding, Demonstrated Understanding, Needs Reinforcement Home Exercise Program, taught by Harini Mejia PTA at 06/07/2024 11:59 AM. Learner: Patient Readiness: Acceptance Method: Explanation, Demonstration Response: Verbalizes Understanding, Demonstrated Understanding, Needs Reinforcement Mobility Training, taught by Harini Mejia PTA at 06/07/2024 11:59 AM. Learner: Patient Readiness: Acceptance Method: Explanation, Demonstration Response: Verbalizes Understanding, Demonstrated Understanding, Needs Reinforcement Education Comments No comments found. ASSESSMENT PT Assessment PT Assessment Results: Decreased strength, Decreased range of motion, Decreased endurance, Impairedbalance, Impaired gait Evaluation/Treatment Tolerance: Patient tolerated treatment well Plan of Care Plan Treatment/Interventions: Functional transfer training, LE strengthening/ROM, Endurance training, Cognitive reorientation, Bed mobility, Gait training, Balance training, Continued evaluation, Compensatory technique education PT Plan: Skilled PT PT Frequency: 5-7 days per week PT Duration of Sessions: 60-90 min per session PT Treatments per day: 1 time per day PT Discharge Recommendations: Other (Comment) (TBD) Problems/Goals Goals: Encounter Problems Encounter Problems (Active) Template: Physical Therapy Problem: PT Master Sonar Technician Goals Dates: Start: 05/24/24 Goal: mod-I ambulation x150ft Dates: Start: 05/24/24 Outcomes Date/Time User Outcome 06/04/24918 Mirlande Aquino PT Progressing Goal: mod-I x12 stairs unilat. railing Dates: Start: 05/24/24 Outcomes Date/Time User Outcome 06/04/24Rae Aquino PT Progressing Goal: mod-I bed mobility Dates: Start: 05/24/24 Outcomes Date/Time User Outcome 06/04/24918 Mirlande Aquino PT Progressing Goal: mod-I transfers Dates: Start: 05/24/24 Outcomes Date/Time User Outcome 06/04/24918 Mirlande Aquino PT Progressing Problem: PT Short Term Goals Dates: Start: 05/24/24 Goal: SUP bed mobility Dates: Start: 05/24/24 Outcomes Date/Time User Outcome 06/04/24Rae Aquino, PT Progressing Goal: partial A transfers LRAD (Resolved) Dates: Start: 05/24/24 Resolved: 05/31/24 Outcomes Date/Time User Outcome 05/31/24 1137 Mirlande Aquino, LUIS MANUEL Completed Goal: partial A x50ft LRAD ambulation Dates: Start: 05/24/24 Outcomes Date/Time User Outcome 06/04/24 0919 Mirlande Aquino PT Progressing Goal: partial A x4 stairs (Resolved) Dates: Start: 05/24/24 Resolved: 05/31/24 Outcomes Date/Time User Outcome 05/31/24 1137 Mirlande Aquino PT Completed Encounter Problems (Resolved) There are no resolved problems. Session Start/Stop Time: 999 1130 Therapy Minutes Physical Therapy PT Individual: 90 * Jana Jimenez, BULK FLUIDS HANDLER - 06/07/2024 8:30 AM EST Speech Language Pathology Speech Language Pathology Treatment Subjective BULK FLUIDS HANDLER Start Time: 829 BULK FLUIDS HANDLER Stop Time: 929 BULK FLUIDS HANDLER Time Calculation (min): 60 min Subjective: I slept better last night Vitals/Pain Pt did not report pain. Objective General Visit Info General Family/Caregiver Present: No Treatment Speech and Language Speech Treatment (Individual) Time Entry: 15 Verbal Expression: Expanding on root word: Pt required min to max semantic and phonemic verbal cuesfor completion of task. Pt perseverating on related words. x3 word finding difficulties noted during informal conversation re: Pt's job history. Cognitive Skills Therapeutic Interventions Cognitive Skills Direct Contact Time Entry: 45 Memory: Pt tasked with encoding 2 OT recommendations for standing: upright posture and tighten L quad: set up for repetition/rehearsal internal memory strategy: immediate recall: 100% accuracy indp, end of session recall: 100% accuracy indp. Problem Solving: Idenitfying problems and solutions given multiple choice options: 4/6 accuracy indp. W/o multiple choice options: Pt ranging from indp to requiring mod A. Pt able to indp state functional problems at home (i.e. cannot drive therefore SO will drive him places). Attention/Concentration: Slap daisy: 1 rule: 100% accuracy indp. 2 rules first trial: x8 errors noted, 2 rules second trial (changed 1 rule): x4 errors noted, increased speech noted, improved w/ review of rules senior care through task. After 1 min delay: Pt able to recall rules with 100% accuracy indp. Comments Comments: Plan for caregiver training next session. Assessment/Plan BULK FLUIDS HANDLER Assessment Evaluation/Treatment Tolerance: Patient tolerated treatment well Plan Treatment/Interventions: Cognitive linguistic functioning BULK FLUIDS HANDLER Plan: Skilled BULK FLUIDS HANDLER BULK FLUIDS HANDLER Frequency: 5-7 days per week BULK FLUIDS HANDLER Duration of Sessions: 30-60 min per session BULK FLUIDS HANDLER Treatments per day: 1 time per day BULK FLUIDS HANDLER Discharge Recommendations: Home BULK FLUIDS HANDLER BULK FLUIDS HANDLER - Next Appointment: 06/08/24 Goals Encounter Problems Encounter Problems (Active) Template: Speech Therapy Problem: BULK FLUIDS HANDLER Master Sonar Technician Goals Dates: Start: 05/24/24 Goal: Pt will improve cognitive linguistic skills to maximize indp for safe d/c back to community. Dates: Start: 05/24/24 Expected End: 06/14/24 Outcomes Date/Time User Outcome 05/28/24 1528 LORNE Bach Progressing Problem: BULK FLUIDS HANDLER Short Term Goals Dates: Start: 05/24/24 Goal: Pt will participate in additional cognitive linguistic assessment. (Resolved) Dates: Start: 05/24/24 Expected End: 05/27/24 Resolved: 06/01/24 Outcomes Date/Time User Outcome 06/01/24 1227 LORNE Bach Completed Goal: Pt will improve immediate and delayed recall of functional information to 80% accuracy given mod A for strategies. (Resolved) Dates: Start: 05/24/24 Expected End: 05/31/24 Resolved: 06/04/24 Outcomes Date/Time User Outcome 06/04/24 1400 LORNE Bach Completed Goal: Pt will participate in basic convergent/divergent categorization tasks at 80% accuracy given mod A. (Resolved) Dates: Start: 05/24/24 Expected End: 05/31/24 Resolved: 06/04/24 Outcomes Date/Time User Outcome 06/04/24 1400 LORNE Bach Completed Goal: Pt will participate in basic mental flexibility/working memory tasks at 80% accuracy given mod A. Dates: Start: 05/24/24 Expected End: 06/07/24 Outcomes Date/Time User Outcome 05/26/24 1408 LORNE Bach Not Progressing Goal: Pt will complete functional tasks targeting executive functioning skills (planning, organization, mental flexibility) at 80% accuracy given mod A. Dates: Start: 05/25/24 Expected End: 06/08/24 Description: Outcomes Date/Time User Outcome 06/02/24 LORNE Fajardo Not Progressing Goal: Pt will complete sequencing tasks w/ 90% accuracy given mod A Dates: Start: 05/26/24 Expected End: 06/08/24 Description: Outcomes Date/Time User Outcome 06/02/24 LORNE Fajardo Not Progressing Goal: Pt will be able to answer problem-solving/reasoning tasks related to safety and ADLs w/ 90% accuracy given min A (Resolved) Dates: Start: 05/26/24 Expected End: 06/02/24 Resolved: 06/04/24 Description: Outcomes Date/Time User Outcome 06/04/24 LORNE Chery Completed Goal: Pt will be able to identify 2 post-stroke deficits given min A (Resolved) Dates: Start: 05/27/24 Expected End: 06/03/24 Resolved: 06/04/24 Description: Outcomes Date/Time User Outcome 06/04/24 LORNE Chery Completed Goal: Pt will improve immediate and delayed recall of functional information to 80% accuracy given min A for encoding and indep. for retrieval Dates: Start: 06/04/24 Expected End: 06/11/24 Description: Outcomes Date/Time User Outcome 06/07/24 LORNE Wolff Progressing Goal: Pt will participate in higher level naming tasks w/ 90% accuracy given min A Dates: Start: 06/04/24 Expected End: 06/11/24 Description: Outcomes Date/Time User Outcome 06/07/24 CarlottaLORNE Salgado Not Progressing Goal: Pt will improve attention w/ mod-higher level visual and/or auditory tasks w/ 80% accuracy given min A Dates: Start: 06/04/24 Expected End: 06/11/24 Description: Outcomes Date/Time User Outcome 06/07/24 LORNE Wolff Not Progressing Goal: Pt will complete functional problem-solving/calculations tasks w/ 80% accuracy given mod A Dates: Start: 06/04/24 Expected End: 06/11/24 Description: Outcomes Date/Time User Outcome 06/07/24 1047 LORNE Romero Progressing Encounter Problems (Resolved) There are no resolved problems. Education Documentation Speech/Language, taught by LORNE Romero at 06/07/2024 8:30 AM. Learner: Patient Readiness: Acceptance Method: Explanation, Demonstration Response: Verbalizes Understanding, Needs Reinforcement Cognition, taught by LORNE Romero at 06/07/2024 8:30 AM. Learner: Patient Readiness: Acceptance Method: Explanation, Demonstration Response: Verbalizes Understanding, Needs Reinforcement Education Comments No comments found. Cosigned by LORNE Rodriguez at 06/07/2024 9:23 PM EST Associated attestation - Corina Curran SLP - 06/07/2024 9:23 PM EST I attest that I, Coby Curran M.S.,[facility]-BULK FLUIDS HANDLER, was physically involved in the ongoing assessment, decision making, and interventions provided during today's patient care session. I have reviewed all documentation for today's 06/07/24, entered by Speech Therapy Fellow, Jana Cesar, and further attest that it is an accurate clinical record of today's encounter, including accurate and appropriatecharges. * Harini Mejia, PROFILER HAND - 06/06/2024 2:01 PM EST [facility] Physical Therapy Treatment Note 06/06/2024 Patient: Bob Han : 1950 Age: 74 y.o. Gender: male Primary Language: Argentine Diagnosis: CVA (cerebral vascular accident) (CMS/HCC) Past Medical History: Diagnosis Date HLD (hyperlipidemia) HTN (hypertension) Migraines Spinal stenosis History reviewed. No pertinent surgical history. Allergies: is allergic to acetaminophen, atorvastatin, glipizide, and rosuvastatin. Precautions: Medical Precautions: Fall Risk Safety Interventions: Call [place] within reach RUE Weight Bearing Status: Full LUE Weight Bearing Status: Full RLE Weight Bearing Status: Full LLE Weight Bearing Status: Full NURSING RECOMMENDATIONS Bed Mobility: Transfers: Ambulation: SUBJECTIVE Pt report: I used to walk all the time Procedure/Treatment: Therapeutic Activities: Therapeutic Activity Time Entry: 75 Therapeutic Activity 1: pt in w/c, asssist to don socks/shoes in w/c. w/c mob with BLEs, RUE room to/from gym 130' Sup. xfers w/c. armchair sit to stand to SBQC steadying and steadying to amb with SBQC 10' progressing to 30' during session multiple trials, cues for sequencing, increased left knee ext, complete turn to sit stepping back with LLE and RUE back to arm rest with return to sit. up and down 4 steps x 2 with left sided railing ascending STS cues for sequencing partial assist, sitting rest then up and down 4 steps x 3 with left sided ascending railing partial assist. Education: Education Documentation Precautions, taught by Harini Mejia PTA at 06/06/2024 2:01 PM. Learner: Patient Readiness: Acceptance Method: Explanation, Demonstration Response: Verbalizes Understanding, Demonstrated Understanding, Needs Reinforcement Body Mechanics, taught by Harini Mejia PTA at 06/06/2024 2:01 PM. Learner: Patient Readiness: Acceptance Method: Explanation, Demonstration Response: Verbalizes Understanding, Demonstrated Understanding, Needs Reinforcement Mobility Training, taught by Harini Mejia PTA at 06/06/2024 2:01 PM. Learner: Patient Readiness: Acceptance Method: Explanation, Demonstration Response: Verbalizes Understanding, Demonstrated Understanding, Needs Reinforcement Education Comments No comments found. ASSESSMENT PT Assessment PT Assessment Results: Decreased strength, Decreased range of motion, Decreased endurance, Impairedbalance, Impaired gait Evaluation/Treatment Tolerance: Patient tolerated treatment well Plan of Care Plan Treatment/Interventions: Functional transfer training, LE strengthening/ROM, Endurance training, Cognitive reorientation, Bed mobility, Gait training, Balance training, Continued evaluation, Compensatory technique education PT Plan: Skilled PT PT Frequency: 5-7 days per week PT Duration of Sessions: 60-90 min per session PT Treatments per day: 1 time per day PT Discharge Recommendations: Other (Comment) (TBD) Problems/Goals Goals: Encounter Problems Encounter Problems (Active) Template: Physical Therapy Problem: PT Master Sonar Technician Goals Dates: Start: 05/24/24 Goal: mod-I ambulation x150ft Dates: Start: 05/24/24 Outcomes Date/Time User Outcome 06/04/24 0919 Mirlande Aquino PT Progressing Goal: mod-I x12 stairs unilat. railing Dates: Start: 05/24/24 Outcomes Date/Time User Outcome 06/04/24 0919 Mirlande Aquino PT Progressing Goal: mod-I bed mobility Dates: Start: 05/24/24 Outcomes Date/Time User Outcome 06/04/24 0919 Mirlande Aquino PT Progressing Goal: mod-I transfers Dates: Start: 05/24/24 Outcomes Date/Time User Outcome 06/04/24 0919 Mirlande Aquino PT Progressing Problem: PT Short Term Goals Dates: Start: 05/24/24 Goal: SUP bed mobility Dates: Start: 05/24/24 Outcomes Date/Time User Outcome 06/04/24 09Rae Aquino PT Progressing Goal: partial A transfers LRAD (Resolved) Dates: Start: 05/24/24 Resolved: 05/31/24 Outcomes Date/Time User Outcome 05/31/24 1137 Mirlande Aquino PT Completed Goal: partial A x50ft LRAD ambulation Dates: Start: 05/24/24 Outcomes Date/Time User Outcome 06/04/24 0919 Mirlande Aquino PT Progressing Goal: partial A x4 stairs (Resolved) Dates: Start: 05/24/24 Resolved: 05/31/24 Outcomes Date/Time User Outcome 05/31/24 1137 Mirlande Aquino PT Completed Encounter Problems (Resolved) There are no resolved problems. Session Start/Stop Time: 1230 1345 Therapy Minutes Physical Therapy PT Individual: 75 * Gay Ironuma - 06/06/2024 12:51 PM EST SPIRITUAL CARE Date/Time:06/06/24 at 12:51 PM EST Type of Visit:Follow-up Reason for Visit: Spiritual/Emotional Support Time Spent: 15 Minutes Location: [address] [place] [address] Sacramental Encounters: Sacrament of Sick-Anointing: Anointed Spiritual Distress Assessment: Spiritual Distress Assessment at beginning of visit Meaning - Overall Life Balance: No evidence of unmet spiritual need Transcendence: No evidence of unmet spiritual need Values - Acknowledgement: No evidence of unmet spiritual need Values - Control: No evidence of unmet spiritual need Psycho-Social Identity: No evidence of unmet spiritual need SDAT Beginning of Visit Average Score: 0 Spiritual Distress Assessment at end of visit Meaning - Overall Life Balance: No evidence of unmet spiritual need Transcendence: No evidence of unmet spiritual need Values - Acknowledgement: No evidence of unmet spiritual need Values - Control: No evidence of unmet spiritual need Psycho-Social Identity: No evidence of unmet spiritual need SDAT End of Visit Average Score: 0 Spiritual Assessment/Distress Spiritual Care Assessment: Assessment: Follow up visit, Bob was awake, alert, sitting and resting in the chair at the time of visit. Shared feeling, hope and wish. Happy for the progress and improvement towards recovery, returning to normal daily life activities. Happy and thankful for family support and love. Prayed for strength, courage and comfort. Thankful for the visit. Intervention: NE Spiritual Care Interventions : provided support, listened empathically, and provided prayer Outcomes: expressed gratitude Plan of Care: Visit as needed *Reference: Spiritual Distress Assessment Tool: The SDAT is a clinical tool used by chaplains to identify unmet spiritual and emotional needs that can impact Goals of Care in the following categories: Spiritual Distress Assessment Legend Spiritual Needs Related Questions Meaning Are you having difficulties coping with what is happening to your now? Does your hospitalization have any repercussions on the way you live usually? Transcendence Do you have a particular restorationism, sabine, or spirituality? Is your restorationism/spirituality/sabine challenged by what is happening to you now? Values Do you think that the health professionals caring for you know you well enough? Do you feel that you are participating in the decisions made about your care? Psycho-Social Identity Do you have any worries or difficulties regarding your family or other persons close to you? Do you feel lonely? Do you have links to your sabine community? SCALE 0= no evidence of unmet spiritual needs 1= some evidence of unmet spiritual needs 2= substantial evidence of unmet spiritual needs 3= evidence of severe unmet spiritual needs * Christina Crespo, RD - 06/06/2024 12:22 PM EST 06/06/2024 @ 12:22 PM EST Nutrition Follow Up Note Reason for RD Intervention: Assessment Type: Follow-up Anthropometrics: Weight Method: Actual BMI Class: Obesity Class II IBW (lbs): 142 Current Diet and Supplements: Dietary Orders (From admission, onward) Start Ordered 06/03/24 1659 Adult diet [facility]; Cardiac, Modified Consistency Options for Liquids and Solids, Diabetic; IDDSI Level 6 Soft & Bite Sized; 90 gm carb/Meal; Sodium 2 gm Restriction Diet effective now Question Answer Comment Location [facility] Diet Type (req) Cardiac Diet Type (req) Modified Consistency Options for Liquids and Solids Diet Type (req) Diabetic Modified Consistency Options for Liquids and Solids IDDSI Level 6 Soft & Bite Sized Diabetic 90 gm carb/Meal Diet Type (cardiac) Sodium 2 gm Restriction 06/03/24 1658 History of presenting illness: Patient is a 74 y.o. male with a history of Past Medical History: Diagnosis Date HLD (hyperlipidemia) HTN (hypertension) Migraines Spinal stenosis History reviewed. No pertinent surgical history. admitted 05/23/2024 with CVA (cerebral vascular accident) ([facility] Food/Nutrition History: Previous Diet / Nutrition Education / Counseling: Pt reports good appetite and intake at home. Usually eats 3 meals per day. Avoids salt and states he is careful with higher sodium foods. Pt reports being quite active prior to admission- usually walks 1 mile daily. Reports intentional weight loss of ~100 lb 5 years ago. No reported food allergies Appetite PROFILER HAND: Good Intake PROFILER HAND: Stable Subjective Assessment: Pt seen for follow up. Continues on IDDSI 6 soft and bite sized diet which he reports tolerating well. Reports good appetite and intake- consuming 75-100% of most meals over past several days. Deniesnutritional concerns at this time. Nutrition-Related Lab Values: Results from last 7 days Lab Units 06/01/24 0520 SODIUM mmol/L 137 POTASSIUM mmol/L 4.5 CHLORIDE mmol/L 106 CO2 mmol/L 26 BUN mg/dL 17 CREATININE mg/dL 0.63* EGFR mL/min/1.73m2 100 CALCIUM mg/dL 9.1 BILIRUBIN TOTAL mg/dL 0.5 ALK PHOS unit/L 108 ALT unit/L 53 AST unit/L 52* GLUCOSE mg/dL 92 WBC AUTO K/mcL 8.1 No results found for: LIPASE Medications: amLODIPine, 5 mg, oral, Daily aspirin, 81 mg, oral, Daily cefuroxime, 250 mg, oral, BID AC docusate sodium, 100 mg, oral, BID ezetimibe, 10 mg, oral, Daily nystatin, , Topical, BID polyetheylene glycol, 17 g, oral, Daily senna, 2 tablet, oral, Nightly CONTINUOUS: PRN medications: aluminum-magnesium hydroxide-simethicone, bisacodyL, dextrose 50%, dextrose 50%, dextrose, dextrose, glucagon injection, magnesium hydroxide Food/Nutrition-Current Status: Intake Type: P.O. Appetite: Good Intake Amount (%): 75-100% Intake Assessment: Adequate Nutrition Focused Physical Findings: Overall Appearance: No findings of muscle or fat depletion Digestive System (Mouth to Rectum): Swallowing difficulty Nerves and Cognition: Oriented Skin: Right lateral heel pressure injury, left buttock slit, right groin slit, coccyx slit, left arm abrasion Nutrition Diagnosis: Code Type: None Identified Status: Other (Comment) (Ongoing) Diagnosis: Swallowing Difficulty Etiology: Physiologic causes Symptoms: need for IDDSI 6 soft and bite sized diet Nutrition Interventions: Meals/Snacks, Diet Order -Continue with IDDSI 6 soft and bite sized diet, 90 gm carbohydrate/meal, 2 gm Na diet. -Monitor adequacy of PO intake; consider offering snacks/supplements if pt consuming <65% of meals on follow up. - Continue to follow skin integrity, weights, BM - Pt denies questions regarding low sodium diet at this time. Encouraged him to continue avoiding salt and monitoring intake of high sodium foods at home. Goals: Patient will consume greater than or equal to 75% meals., Monitor/control glucose levels, Maintain weight., Stooling appropriately., and Wound healing progress. Monitoring/Evaluation: Fluid/Beverage Intake, Food Intake, Weight, Gastrointestinal Profile Follow Up: Nutrition Priority Level: Low Please consult nutrition if needed sooner. RD remains available and will continue to follow. Signature: Christina Crespo RD * Jana Jimenez, BULK FLUIDS HANDLER - 06/06/2024 10:05 AM EST Speech Language Pathology Speech Language Pathology Treatment Subjective BULK FLUIDS HANDLER Start Time: 1005 BULK FLUIDS HANDLER Stop Time: 1055 BULK FLUIDS HANDLER Time Calculation (min): 50 min Subjective: I had a rough night of sleep Vitals/Pain Pt did not report pain. Objective General Visit Info General Family/Caregiver Present: No Treatment Cognitive Skills Therapeutic Interventions Cognitive Skills Direct Contact Time Entry: 50 Memory: Pt presented with article of choice and tasked with answering immediate f/u wh- questions: min to mod verbal cues required for completion. Pt noted to be tangential and perseverating on topics of interest, required mod amount of redirections back to task. Pt reporting increased difficulty remembering names of rehab team members. Discussed use of association strategy as internal memory strategy. Pt able to generate distinguishing features to associate between name given overall mod A for generation. Pt receptive to use of strategy. Pt provided with visual of associations to rehearse for HW. Attention/Concentration: Divided attention task: Pt tasked with sorting cards by color and countingup by 2s: x6 errors noted during task, required extra time, errors noted with attention to detail of color and working memory related to order of numbers. Pt noted to self correct ~50% of the time for errors. Comments Comments: Tangential, required mod amount of redirections. Assessment/Plan BULK FLUIDS HANDLER Assessment Evaluation/Treatment Tolerance: Patient tolerated treatment well Plan Treatment/Interventions: Cognitive linguistic functioning BULK FLUIDS HANDLER Plan: Skilled BULK FLUIDS HANDLER BULK FLUIDS HANDLER Frequency: 5-7 days per week BULK FLUIDS HANDLER Duration of Sessions: 30-60 min per session BULK FLUIDS HANDLER Treatments per day: 1 time per day BULK FLUIDS HANDLER Discharge Recommendations: Home BULK FLUIDS HANDLER BULK FLUIDS HANDLER - Next Appointment: 06/07/24 Goals Encounter Problems Encounter Problems (Active) Template: Speech Therapy Problem: BULK FLUIDS HANDLER Group Home Goals Dates: Start: 05/24/24 Goal: Pt will improve cognitive linguistic skills to maximize indp for safe d/c back to community. Dates: Start: 05/24/24 Expected End: 06/14/24 Outcomes Date/Time User Outcome 05/28/24 1528 LORNE Bach Progressing Problem: BULK FLUIDS HANDLER Short Term Goals Dates: Start: 05/24/24 Goal: Pt will participate in additional cognitive linguistic assessment. (Resolved) Dates: Start: 05/24/24 Expected End: 05/27/24 Resolved: 06/01/24 Outcomes Date/Time User Outcome 06/01/24 1227 LORNE Bach Completed Goal: Pt will improve immediate and delayed recall of functional information to 80% accuracy given mod A for strategies. (Resolved) Dates: Start: 05/24/24 Expected End: 05/31/24 Resolved: 06/04/24 Outcomes Date/Time User Outcome 06/04/24 1400 LORNE Bach Completed Goal: Pt will participate in basic convergent/divergent categorization tasks at 80% accuracy given mod A. (Resolved) Dates: Start: 05/24/24 Expected End: 05/31/24 Resolved: 06/04/24 Outcomes Date/Time User Outcome 06/04/24 LORNE Chery Completed Goal: Pt will participate in basic mental flexibility/working memory tasks at 80% accuracy given mod A. Dates: Start: 05/24/24 Expected End: 06/07/24 Outcomes Date/Time User Outcome 05/26/24 1408 LORNE Bach Not Progressing Goal: Pt will complete functional tasks targeting executive functioning skills (planning, organization, mental flexibility) at 80% accuracy given mod A. Dates: Start: 05/25/24 Expected End: 06/08/24 Description: Outcomes Date/Time User Outcome 06/02/24 1216 LORNE Bach Not Progressing Goal: Pt will complete sequencing tasks w/ 90% accuracy given mod A Dates: Start: 05/26/24 Expected End: 06/08/24 Description: Outcomes Date/Time User Outcome 06/02/24 1216 LORNE Bach Not Progressing Goal: Pt will be able to answer problem-solving/reasoning tasks related to safety and ADLs w/ 90% accuracy given min A (Resolved) Dates: Start: 05/26/24 Expected End: 06/02/24 Resolved: 06/04/24 Description: Outcomes Date/Time User Outcome 06/04/24 1400 LORNE Bach Completed Goal: Pt will be able to identify 2 post-stroke deficits given min A (Resolved) Dates: Start: 05/27/24 Expected End: 06/03/24 Resolved: 06/04/24 Description: Outcomes Date/Time User Outcome 06/04/24 1400 LORNE Bach Completed Goal: Pt will improve immediate and delayed recall of functional information to 80% accuracy given min A for encoding and indep. for retrieval Dates: Start: 06/04/24 Expected End: 06/11/24 Description: Outcomes Date/Time User Outcome 06/06/24 1144 LORNE Romero Progressing Goal: Pt will participate in higher level naming tasks w/ 90% accuracy given min A Dates: Start: 06/04/24 Expected End: 06/11/24 Description: Goal: Pt will improve attention w/ mod-higher level visual and/or auditory tasks w/ 80% accuracy given min A Dates: Start: 06/04/24 Expected End: 06/11/24 Description: Outcomes Date/Time User Outcome 06/06/24 1144 LORNE Romero Not Progressing Goal: Pt will complete functional problem-solving/calculations tasks w/ 80% accuracy given mod A Dates: Start: 06/04/24 Expected End: 06/11/24 Description: Encounter Problems (Resolved) There are no resolved problems. Education Documentation Cognition, taught by LORNE Romero at 06/06/2024 10:05 AM. Learner: Patient Readiness: Acceptance Method: Explanation Response: Verbalizes Understanding, Needs Reinforcement Comment: Recommendations for preferred tasks (ex hunting) and rationale re: cognitive changes. Importance of focusing on one task at a time related to divided attention skill. Education Comments No comments found. Cosigned by LORNE Rodriguez at 06/06/2024 12:38 PM EST Associated attestation - Corina Curran SLP - 06/06/2024 12:38 PM EST I attest that I, Coby Curran M.S.,[facility]-BULK FLUIDS HANDLER, was physically involved in the ongoing assessment, decision making, and interventions provided during today's patient care session. I have reviewed all documentation for today's 06/06/24, entered by Speech Therapy Fellow, Jana Cesar, and further attest that it is an accurate clinical record of today's encounter, including accurate and appropriatecharges. * Theodore Clement, OT - 06/06/2024 9:00 AM EST [facility] Occupational Therapy Treatment Note 06/06/24 Patient: Bob Han : 1950 Age: 74 y.o. Gender: male Diagnosis: CVA (cerebral vascular accident) ([facility]) Primary Rehab (Etiologic) Diagnosis: Patient Active Problem List Diagnosis CVA (cerebral vascular accident) ([facility]) PMH: Past Medical History: Diagnosis Date HLD (hyperlipidemia) HTN (hypertension) Migraines Spinal stenosis PSH: History reviewed. No pertinent surgical history. Allergies: is allergic to acetaminophen, atorvastatin, glipizide, and rosuvastatin. Precautions: Precautions Medical Precautions: Fall Risk Safety Interventions: Call [place] within reach RUE Weight Bearing Status: Full LUE Weight Bearing Status: Full RLE Weight Bearing Status: Full LLE Weight Bearing Status: Full Subjective: I haven't been up in a while. Procedures/Interventions: ADLs/IADLs Self Care/Home Management (ADLs) Time Entry: 60 Pt supine upon arrival, agreeable to particiaption. Elevated supine>sit EOB with partial A for trunk uplift, verbal cues for incorporating L UE. SPT with SBQC from bed>w/c with partial A. Once seated in w/c sponge bathing perfomred at sink. Pt doffed rocio with B UEs. Pt performed UB bathingwith use of B UEs and verbal cues for thoroughness and use of L UE. While seated pt bathed abigail area. Pt requesting to toilet. Dep for positioning of w/c due to urgency. SPT from w/c>toilet with LUE on grab bar, with partial A, with use of 3-in-1 commode frame. While seated pt reporting unable to have BM. Pt able to perform posterior hygiene while in stand with L UE on grab bar and R UE to perform hygiene, steadying A. No clothing management required. Pt performed X mass reps due to residual bowel. SPT toilet>w/c with cues for R UE positioning, with partial A. Hand hygiene performed w/c level with pt self initiating incorporation of L UE. Pt donned T shirt with good carryover of hemidressing technique, with overall S and increased time. Assist to apply brief. Pt able to thread B Les through shorts with increased time as pt threading R LE first. Re-education provided on laurel dressing technique. STS at bed rail with partial A. In stand pt able to hike brief and pants over hips with assist for hiking posteriorly/on L. Pt able to hike over L hip minimally with L UE. During standverbal cues for maintaining upright posture, and for tightening L quad. W/c level at sink pt performed oral hygiene with L UE as a gross assist. Pt able to hold toothbrush in L hand while applying toothpaste with R UE. Hand over hand for securing dentures with L grasp, to allow pt to brush with R UE. End of session pt seated in w/c with chair alarm on, call [place] in reach, and all needs met. OT Assessment OT Assessment OT Assessment Results: Decreased ADL status, Decreased upper extremity range of motion, Decreased upper extremity strength, Decreased endurance, Decreased fine motor control, Decreased functional mobility, Decreased gross motor control Prognosis: Good Evaluation/Treatment Tolerance: Patient tolerated treatment well. pt motivated throughout, with instances of self initiating use of L UE throughout ADL. Decreased grasp in L hand is a barrier to hiking pants. Pt would benefit from continued strengthening of L UE to increase ind with ADL tasks, . 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 Goals Dates: Start: 05/24/24 Goal: pt will be IND with lower body dressing AE PRN Dates: Start: 05/24/24 Expected End: 06/14/24 Goal: pt will be IND with upper body dressing Dates: Start: 05/24/24 Expected End: 06/14/24 Goal: pt will be IND with toilet txfer LRAD Dates: Start: 05/24/24 Expected End: 06/14/24 Goal: pt will ne IND with toileting tasks LRAD Dates: Start: 05/24/24 Expected End: 06/14/24 Goal: pt will be IND with footwear tasks AE PRN Dates: Start: 05/24/24 Expected End: 06/14/24 Problem: OT Short Term Goals Dates: Start: 05/24/24 Goal: Pt will be mod assist with upper body dressing (Resolved) Dates: Start: 05/24/24 Expected End: 05/31/24 Resolved: 05/30/24 Outcomes Date/Time User Outcome 05/30/24 08Mely Aleman OT Completed Goal: Pt will me max assist with lower body dressing AE PRN (Resolved) Dates: Start: 05/24/24 Expected End: 05/31/24 Resolved: 05/30/24 Outcomes Date/Time User Outcome 05/30/24 Payam Aleman OT Completed Goal: Pt will be max assist with footwear AE PRN (Resolved) Dates: Start: 05/24/24 Expected End: 05/31/24 Resolved: 05/30/24 Outcomes Date/Time User Outcome 05/30/24 Payam Aleman OT Completed Goal: pt will be mod assist toilet txfer LRAD Dates: Start: 05/24/24 Expected End: 05/31/24 Goal: pt will be max assist with toileting tasks Dates: Start: 05/24/24 Expected End: 05/31/24 Encounter Problems (Resolved) There are no resolved problems. Education Documentation Activity/Positioning, taught by Theodore Clement OT at 06/06/2024 12:44 PM. Learner: Patient Readiness: Acceptance Method: Explanation, Demonstration Response: Verbalizes Understanding, Demonstrated Understanding, Needs Reinforcement Body Mechanics, taught by Theodore Clement OT at 06/06/2024 12:44 PM. Learner: Patient Readiness: Acceptance Method: Explanation, Demonstration Response: Verbalizes Understanding, Demonstrated Understanding, Needs Reinforcement ADL Training, taught by Theodore Clement OT at 06/06/2024 12:44 PM. Learner: Patient Readiness: Acceptance Method: Explanation, Demonstration Response: Verbalizes Understanding, Demonstrated Understanding, Needs Reinforcement Education Comments No comments found. Start/Stop Time OT Time Calculation OT Start Time: 0900 OT Stop Time: 1000 OT Time Calculation (min): 60 min Therapy Minutes: Occupational Therapy OT Individual: 60 * Fanny OmerZheng, BULK FLUIDS HANDLER - 06/04/2024 2:02 PM EST Speech Language Pathology Speech Language Pathology Treatment Subjective BULK FLUIDS HANDLER Start Time: 1300 BULK FLUIDS HANDLER Stop Time: 1345 BULK FLUIDS HANDLER Time Calculation (min): 45 min Subjective: Pt was alert and sitting upright in recliner chair for the session. Pt was pleasant andcooperative throughout the session. Pt's partner came in towards the end of the session and was provided an update on progress. Objective General Visit Info General Family/Caregiver Present: Yes (pt's came in at the end of the session) Treatment Cognitive Skills Therapeutic Interventions Cognitive Skills Direct Contact Time Entry: 45 Other Cognitive Skills Activity: Pt participated in re-assessment of the BCAT and VPJ. Pt engaged in a conversation about progess and goals going forward w/ therapy. Pt was in agreement w/ goal recommendations and was motivated to continue to target skills. BCAT (Brief Cognitive Assessment Tool) - Alternative form B Orientation: 09/23 Immediate Verbal Recall: 07/22 Visual Recognition/Namin3 Attention: Letter list: 0/1 Mental Control- Counting backwards: 1/, Days of week backwards: 1/ Digits: Forward: 1/2, Backward: 0/2 Abstraction: 33 Language: Repetition: 1 Fluency: 1/2 Executive: Cognitive Shiftin/2 Arithmetic Reasonin/1 Judgement: 0/1 Visuospatial: Design: 2/2 Clock: 04/21 Delayed Verbal Recall (words): 05/24 Immediate Story Recall: 6/11 elements recalled. 04/21 Delayed Visual Memory (pictures): 3 Delayed Story Recall: 5/11 element recalled. 04/21 Story Recognition: 5/5 TOTAL SCORE: 37, MILD COGNITIVE IMPAIRMENT Cognitive levels were identified based on the BCAT?? score ranges: normal = 44- 50, mild cognitive impairment (MCI) = 34-43, mild dementia = 25-33, and moderate-severe dementia = 0-24 (Thomas, Kaetlyn, Gerardo, & Robin, 2015; Katelyn, Gerardo, & Robin, 2014b) Verbal Test of Practical Judgement (VPJ): The VPJ is a clinical assessment of older adults judgement across activities of daily living and is important for mitigating safety risks that often precipitate loss of independence. It consists of 10 questions requesting participants??? reactions to certain scenarios. Scores set by Katelyn et al. 16 are as follows: the range 0-12 indicates severe impairment in practical judgement; 13-15 indicates some impairment; and 16-20 indicates no apparent impairment. 2/2 2/2 0/2 2/2 0/2 2/2 2/2 2/2 2/2 2/2 Total score: 16/20 Interpretation: No Apparent Impairment Assessment/Plan BULK FLUIDS HANDLER Assessment BULK FLUIDS HANDLER Assessment Results: Cognitive impairments Evaluation/Treatment Tolerance: Patient tolerated treatment well Plan Treatment/Interventions: Cognitive linguistic functioning BULK FLUIDS HANDLER Plan: Skilled BULK FLUIDS HANDLER BULK FLUIDS HANDLER Frequency: 5-7 days per week BULK FLUIDS HANDLER Duration of Sessions: 30-60 min per session Goals Encounter Problems Encounter Problems (Active) Template: Speech Therapy Problem: BULK FLUIDS HANDLER Group Home Goals Dates: Start: 05/24/24 Goal: Pt will improve cognitive linguistic skills to maximize indp for safe d/c back to community. Dates: Start: 05/24/24 Expected End: 06/14/24 Outcomes Date/Time User Outcome 05/28/24 1528 LORNE Bach Progressing Problem: BULK FLUIDS HANDLER Short Term Goals Dates: Start: 05/24/24 Goal: Pt will participate in additional cognitive linguistic assessment. (Resolved) Dates: Start: 05/24/24 Expected End: 05/27/24 Resolved: 06/01/24 Outcomes Date/Time User Outcome 06/01/24 1227 LORNE Bach Completed Goal: Pt will improve immediate and delayed recall of functional information to 80% accuracy given mod A for strategies. (Resolved) Dates: Start: 05/24/24 Expected End: 05/31/24 Resolved: 06/04/24 Outcomes Date/Time User Outcome 06/04/24 1400 LORNE Bach Completed Goal: Pt will participate in basic convergent/divergent categorization tasks at 80% accuracy given mod A. (Resolved) Dates: Start: 05/24/24 Expected End: 05/31/24 Resolved: 06/04/24 Outcomes Date/Time User Outcome 06/04/24 LORNE Chery Completed Goal: Pt will participate in basic mental flexibility/working memory tasks at 80% accuracy given mod A. Dates: Start: 05/24/24 Expected End: 06/07/24 Outcomes Date/Time User Outcome 05/26/24 1408 LORNE Bach Not Progressing Goal: Pt will complete functional tasks targeting executive functioning skills (planning, organization, mental flexibility) at 80% accuracy given mod A. Dates: Start: 05/25/24 Expected End: 06/08/24 Description: Outcomes Date/Time User Outcome 06/02/24 1216 LORNE Bach Not Progressing Goal: Pt will complete sequencing tasks w/ 90% accuracy given mod A Dates: Start: 05/26/24 Expected End: 06/08/24 Description: Outcomes Date/Time User Outcome 06/02/24 121LORNE Bernstein Not Progressing Goal: Pt will be able to answer problem-solving/reasoning tasks related to safety and ADLs w/ 90% accuracy given min A (Resolved) Dates: Start: 05/26/24 Expected End: 06/02/24 Resolved: 06/04/24 Description: Outcomes Date/Time User Outcome 06/04/24 LORNE Chery Completed Goal: Pt will be able to identify 2 post-stroke deficits given min A (Resolved) Dates: Start: 05/27/24 Expected End: 06/03/24 Resolved: 06/04/24 Description: Outcomes Date/Time User Outcome 06/04/24 LORNE Chery Completed Goal: Pt will improve immediate and delayed recall of functional information to 80% accuracy given min A for encoding and indep. for retrieval Dates: Start: 06/04/24 Expected End: 06/11/24 Description: Goal: Pt will participate in higher level naming tasks w/ 90% accuracy given min A Dates: Start: 06/04/24 Expected End: 06/11/24 Description: Goal: Pt will improve attention w/ mod-higher level visual and/or auditory tasks w/ 80% accuracy given min A Dates: Start: 06/04/24 Expected End: 06/11/24 Description: Goal: Pt will complete functional problem-solving/calculations tasks w/ 80% accuracy given mod A Dates: Start: 06/04/24 Expected End: 06/11/24 Description: Encounter Problems (Resolved) There are no resolved problems. Education Documentation Speech/Language, taught by LORNE Bach at 06/04/2024 2:01 PM. Learner: Significant Other, Patient Readiness: Acceptance Method: Explanation Response: Verbalizes Understanding Cognition, taught by LORNE Bach at 06/04/2024 2:01 PM. Learner: Significant Other, Patient Readiness: Acceptance Method: Explanation Response: Verbalizes Understanding Education Comments No comments found. Cosigned by LORNE Rodriguez at 06/04/2024 7:04 PM EST Associated attestation - Corina Curran SLP - 06/04/2024 7:04 PM EST I attest that I, Coby Curran M.S.,[facility]-BULK FLUIDS HANDLER, was physically involved in the ongoing assessment, decision making, and interventions provided during today's patient care session. I have reviewed all documentation for today's 06/04/24, entered by Speech Therapy Fellow, Fanny Boyd, and further attest that it is an accurate clinical record of today's encounter, including accurate and appropriate charges. * EMILY Michael - 06/04/2024 11:54 AM EST [facility] Occupational Therapy Treatment Note 06/04/24 Patient: oBb Han : 1950 Age: 74 y.o. Gender: male Diagnosis: CVA (cerebral vascular accident) (CMS/HCC) Primary Rehab (Etiologic) Diagnosis: Patient Active Problem List Diagnosis CVA (cerebral vascular accident) (CMS/HCC) PMH: Past Medical History: Diagnosis Date HLD (hyperlipidemia) HTN (hypertension) Migraines Spinal stenosis PSH: History reviewed. No pertinent surgical history. Allergies: is allergic to acetaminophen, atorvastatin, glipizide, and rosuvastatin. Precautions: Precautions Medical Precautions: Fall Risk Safety Interventions: Call [place] within reach RUE Weight Bearing Status: Full LUE Weight Bearing Status: Full RLE Weight Bearing Status: Full LLE Weight Bearing Status: Full Vitals: BP: 127/60 Heart Rate: 62 Pain: Pain Assessment Pain Assessment: No/denies pain Pain Score: 0 - No pain Subjective: I am worried about my spouse. Procedures/Interventions: Pt semi supine this am, amenable to session at this time. Vitals taken in supine, blood pressure 135/48. Pt completed log rolling with touch A, dressed in brief due to incontinence. Pt completed bed mobility with partial A to transition from supine to sitting. Pt took seated break EOB. Pt donned shoes with touch A for L foot. Pt completed SPT with partial A bed<>w/c. Pt completed oral hygiene and grooming sitting at sink with supervision, pt able to incorporate L UE with v cues. Pt dressed UB with set-up, LB with partial A for threading L LE and pulling up in standing. Pt able to doff shoes with touch A, doff socks in figure four with touch A. Pt donned fresh socks in figure four withtouch A and donned shoes with touch A for L foot. Pt propelled w/c with feet to gym and participated in NMRE see below for specifics. Pt wheeled back to room to eat breakfast with set-up. Emotional lability noted during session. Redirection to task frequently. Call [place] and chair alarm in place at end of session. ADLs/IADLs Self Care/Home Management (ADLs) Time Entry: 60 ADL/ IADL Performed: Eating, Grooming, Oral Hygiene, Dressing Balance/Neuromuscular Re-Education Neuromuscular Re-Education Time Entry: 30 Balance/Neuromuscular Re-Education Activity 1: Pt participated in izzy scap protraction SROM at table, educated about doing SROM at home to engage scapula on L side. Balance/Neuromuscular Re-Education Activity 2: Pt participated in 10 reps of clockwise and 10 reps or counterclockwise circles with use of L UE and washcloth at table. Pt had more challenges with counterclockwise motion. Education provided about crossing midline with L UE. Balance/Neuromuscular Re-Education Activity 3: Pt participated in cone activity at table with focusof L UE grasping cone and moving across midline. Pt completed 15 reps, with some wrist stabilzationusing R UE to improve grasp. Pt educated about use of tendonsis to grasp and release. OT Assessment OT Assessment OT Assessment Results: Decreased ADL status, Decreased upper extremity range of motion, Decreased upper extremity strength, Decreased endurance, Decreased fine motor control, Decreased functional mobility, Decreased gross motor control Prognosis: Good Evaluation/Treatment Tolerance: Patient tolerated treatment well Medical Staff Made Aware: Yes 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 Goals Dates: Start: 05/24/24 Goal: pt will be IND with lower body dressing AE PRN Dates: Start: 05/24/24 Expected End: 06/14/24 Goal: pt will be IND with upper body dressing Dates: Start: 05/24/24 Expected End: 06/14/24 Goal: pt will be IND with toilet txfer LRAD Dates: Start: 05/24/24 Expected End: 06/14/24 Goal: pt will ne IND with toileting tasks LRAD Dates: Start: 05/24/24 Expected End: 06/14/24 Goal: pt will be IND with footwear tasks AE PRN Dates: Start: 05/24/24 Expected End: 06/14/24 Problem: OT Short Term Goals Dates: Start: 05/24/24 Goal: Pt will be mod assist with upper body dressing (Resolved) Dates: Start: 05/24/24 Expected End: 05/31/24 Resolved: 05/30/24 Outcomes Date/Time User Outcome 05/30/24 0844 Coby Aleman, OT Completed Goal: Pt will me max assist with lower body dressing AE PRN (Resolved) Dates: Start: 05/24/24 Expected End: 05/31/24 Resolved: 05/30/24 Outcomes Date/Time User Outcome 05/30/24 0844 Coby Aleman, OT Completed Goal: Pt will be max assist with footwear AE PRN (Resolved) Dates: Start: 05/24/24 Expected End: 05/31/24 Resolved: 05/30/24 Outcomes Date/Time User Outcome 05/30/24 0844 Coby Aleman, OT Completed Goal: pt will be mod assist toilet txfer LRAD Dates: Start: 05/24/24 Expected End: 05/31/24 Goal: pt will be max assist with toileting tasks Dates: Start: 05/24/24 Expected End: 05/31/24 Encounter Problems (Resolved) There are no resolved problems. Education Documentation Body Mechanics, taught by EMILY Michael at 06/04/2024 10:03 AM. Learner: Patient Readiness: Acceptance Method: Explanation, Demonstration Response: Verbalizes Understanding, Demonstrated Understanding Precautions, taught by EMILY Michael at 06/04/2024 10:03 AM. Learner: Patient Readiness: Acceptance Method: Explanation, Demonstration Response: Verbalizes Understanding, Demonstrated Understanding Home Exercise Program, taught by EMILY Michael at 06/04/2024 10:03 AM. Learner: Patient Readiness: Acceptance Method: Explanation, Demonstration Response: Verbalizes Understanding, Demonstrated Understanding ADL Training, taught by EMILY Michael at 06/04/2024 10:03 AM. Learner: Patient Readiness: Acceptance Method: Explanation, Demonstration Response: Verbalizes Understanding, Demonstrated Understanding Education Comments No comments found. Start/Stop Time OT Time Calculation OT Start Time: 0700 OT Stop Time: 08 OT Time Calculation (min): 90 min Therapy Minutes: Occupational Therapy OT Individual: 90 * Mirlande Aquino, PT - 06/04/2024 8:58 AM EST [facility] Physical Therapy Treatment Note 06/04/2024 Patient: Bob Han : 1950 Age: 74 y.o. Gender: male Primary Language: Argentine Diagnosis: CVA (cerebral vascular accident) ([facility]/HCC) Past Medical History: Diagnosis Date HLD (hyperlipidemia) HTN (hypertension) Migraines Spinal stenosis History reviewed. No pertinent surgical history. Allergies: is allergic to acetaminophen, atorvastatin, glipizide, and rosuvastatin. Precautions: Medical Precautions: Fall Risk Safety Interventions: Call [place] within reach, ID band on, Chair alarm RUE Weight Bearing Status: Full LUE Weight Bearing Status: Full RLE Weight Bearing Status: Full LLE Weight Bearing Status: Full SUBJECTIVE Pt report: Morning Pain:0/10 OBJECTIVE General Observation: Seated in WC agreeable to participating in therapy Vitals: BP: 125/68 Heart Rate: 65 SpO2: 96 % Procedure/Treatment: Neuromuscular Reeducation: Balance/Neuromuscular Re-Education Neuromuscular Re-Education Time Entry: 90 Pt seated in WC agreeable to participating in therapy session. Therapist assessing vitals, pt becoming tearful at beginning of therapy session reporting anxiety and depression, pt denied SI. Pt dep. Brought down to therapy gym in WC. Pt completed x10ft partial A for more than steadying assistance with LBQC. Pt then completed 2x10ft of ambulation with SBQC, pt needing partial A for ambulation. Pt completed 2x30ft of ambulation with SBQC 2-point and 3 -point gait pattern, partial A x1 for ambulation. Pt needing cues for UE management when completing STS transfers. Pt completed x12 stairs with BUEs on L ascending rail, pt needing x2 cues to ascend step with RLE rather than LLE, partial A x1 onstairs. Pt having x1 LLE knee buckle during descent towards end of 12 stairs. Therapist demonstrating how to ascend and descend platform step with AD. Pt completed ascending and descending x2 platform step with LBQC, partial A x1 max cues for sequencing with seated rest breaks between trials. Pt ambulating x30ft with SBQC partial A x1, 2 point gait pattern. Pt dep. Brought back to room, partial Afor stand pivot transfer with SBQC, pt left seated in recliner, call [place] in reach, chair alarm on,all needs met. Education: Education Documentation Mobility Training, taught by Mirlande Aquino PT at 06/04/2024 9:18 AM. Learner: Patient Readiness: Acceptance Method: Explanation, Demonstration Response: Verbalizes Understanding, Demonstrated Understanding Comment: DME for d/c home, balance and ambulation. Education Comments No comments found. ASSESSMENT Pt appropriately able to attend to LUE with use of BUEs on railing for stairs. Pt progressing to 2-point gait pattern with use of SBQC, x30ft partial A x1. PT Assessment PT Assessment Results: Decreased strength, Decreased range of motion, Decreased endurance, Impairedbalance, Impaired gait Prognosis: Good Equipment: TBD Plan of Care Plan Treatment/Interventions: Functional transfer training, LE strengthening/ROM, Endurance training, Cognitive reorientation, Bed mobility, Gait training, Balance training, Continued evaluation, Compensatory technique education PT Plan: Skilled PT PT Frequency: 5-7 days per week PT Duration of Sessions: 60-90 min per session PT Treatments per day: 1 time per day PT Discharge Recommendations: Other (Comment) (TBD) Problems/Goals Goals: Encounter Problems Encounter Problems (Active) Template: Physical Therapy Problem: PT Master Sonar Technician Goals Dates: Start: 05/24/24 Goal: mod-I ambulation x150ft Dates: Start: 05/24/24 Outcomes Date/Time User Outcome 06/04/2419 Mirlande Aquino PT Progressing Goal: mod-I x12 stairs unilat. railing Dates: Start: 05/24/24 Outcomes Date/Time User Outcome 06/04/24 0919 Mirlande Aquino, PT Progressing Goal: mod-I bed mobility Dates: Start: 05/24/24 Outcomes Date/Time User Outcome 06/04/24 09Rae Aquino, PT Progressing Goal: mod-I transfers Dates: Start: 05/24/24 Outcomes Date/Time User Outcome 06/04/24 0919 Mirlande Aquino, PT Progressing Problem: PT Short Term Goals Dates: Start: 05/24/24 Goal: SUP bed mobility Dates: Start: 05/24/24 Outcomes Date/Time User Outcome 06/04/24 09Rae Aquino, PT Progressing Goal: partial A transfers LRAD (Resolved) Dates: Start: 05/24/24 Resolved: 05/31/24 Outcomes Date/Time User Outcome 05/31/24 1137 Mirlande Aquino, PT Completed Goal: partial A x50ft LRAD ambulation Dates: Start: 05/24/24 Outcomes Date/Time User Outcome 06/04/24 09Rae Aquino PT Progressing Goal: partial A x4 stairs (Resolved) Dates: Start: 05/24/24 Resolved: 05/31/24 Outcomes Date/Time User Outcome 05/31/24 1137 Mirlande Aquino, LUIS MANUEL Completed Encounter Problems (Resolved) There are no resolved problems. Session Start/Stop Time: 829 1000 Therapy Minutes Physical Therapy PT Individual: 90 * Wen A Stevan, DO - 06/03/2024 4:35 PM EST Images from the original note were not included. [facility] Daily Progress Note Patient name: Bob Han : 1950 SUBJECTIVE: Patient seen and examined at bedside today. No acute events overnight. Denies headaches, dizziness,shortness of breath, chest pain, nausea, constipation, and pain. He reports that left upper extremity strength continues to improve. Participating in therapies: Pt completed STS partial A for more than steadying assistance, ambulating x10ft with LBQC, partial A x1, pt needing max cues for sequencing with use of AD. OBJECTIVE: Vitals: 06/02/24 1520 06/03/24 0100 06/03/24 0936 06/03/24 1556 BP: 139/59 131/58 132/61 126/68 BP Location: Right arm Patient Position: Lying Pulse: 57 56 57 63 Resp: 16 16 17 Temp: 36.4 ??C (97.5 ??F) 36.4 ??C (97.5 ??F) 36.7 ??C (98.1 ??F) TempSrc: Temporal Oral SpO2: 98% 95% 95% 95% Physical Examination: General: Alert, in no acute cardiopulmonary distress. Mental Status: Oriented to person, place and time. Normal affect. Head: Normocephalic. Eyes: Pupils are equal, round and reactive to light. Extraocular muscles intact. Ear, Nose and Throat: Oropharynx clear, mucous membranes moist. Ears and nose without masses, lesions or deformities. Neck: Supple, Trachea midline. Respiratory: Clear to auscultation and percussion. No wheezing, rales or rhonchi. Cardiovascular: Heart sounds normal. No thrills. Regular rate and rhythm, no murmurs, rubs or gallops. Gastrointestinal: Abdomen soft, non-tender, non-distended. Normal bowel sounds. Genitourinary: No costovertebral angle tenderness. Neurologic: Cranial nerves II-XII intact. Deep tendon reflexes +2 bilaterally. Negative Hoffmans sign bilaterally. Negative clonus bilaterally. + pronation and flexion drift of the left upper extremity with left upper extremity weakness 3+/5. Left lower extremity 5 minus/5, hyperreflexia on the left side with an extensor plantar response.Sensation intact bilaterally. Skin: No rashes or lesions. No petechiae or purpura. No edema. Musculoskeletal: No cyanosis or clubbing. No gross deformities. Normal range of motion to RUE and b/l LE. Limited rom due to weakness on LUE (3/5 strength throughout left upper extremity) CURRENT INPATIENT MEDICATIONS: Current Facility-Administered Medications: aluminum-magnesium hydroxide-simethicone (MAALOX) 200-200-20 mg/5 mL suspension 30 mL, 30 mL, oral,q4h PRN, Wen Calles, DO amLODIPine (NORVASC) tablet 5 mg, 5 mg, oral, Daily, Wenjesus Calles, DO, 5 mg at 06/03/24 0939 aspirin chewable tablet 81 mg, 81 mg, oral, Daily, Wen A Stevan, DO, 81 mg at 06/03/24 0939 bisacodyL (DULCOLAX) suppository 10 mg, 10 mg, rectal, Daily PRN, Wenjesus Calles, DO, 10 mg at05/26/24 1348 cefuroxime (CEFTIN) tablet 250 mg, 250 mg, oral, BID Pretty BERNSTEIN PA, 250 mg at 06/03/24 1615 dextrose (D50W) 50% injection 12.5 g, 12.5 g, intravenous, q15 min PRN, ERIC Carbone dextrose (D50W) 50% injection 25 g, 25 g, intravenous, q15 min PRN, ERIC Carbone dextrose 15 gram/60 mL oral solution 15 g, 15 g, oral, q15 min PRN, ERIC Carbone dextrose 15 gram/60 mL oral solution 30 g, 30 g, oral, q15 min PRN, ERIC Carbone docusate sodium (COLACE) capsule 100 mg, 100 mg, oral, BID, Wen A Stevan, DO, 100 mg at 06/02/24 0836 ezetimibe (ZETIA) tablet 10 mg, 10 mg, oral, Daily, Wen A Stevan, DO, 10 mg at 06/03/24 0939 Glucagon HCl (rDNA) injection 1 mg, 1 mg, intramuscular, Once PRN, ERIC Carbone magnesium hydroxide (MILK OF MAGNESIA) 400 mg/5 mL suspension 30 mL, 30 mL, oral, Daily PRN, Wen A Stevan, DO, 30 mL at 05/30/24 1357 nystatin (MYCOSTATIN) 100,000 unit/gram powder, , Topical, BID, Wen A Stevan, DO, Given at 06/02/242027 polyethylene glycol (MIRALAX) packet 17 g, 17 g, oral, Daily, ERIC Chisholm, 17 g at 06/02/2436 senna (SENOKOT) tablet 17.2 mg, 2 tablet, oral, Nightly, ERIC Chisholm, 17.2 mg at 05/31/242053 LABS: Lab Results Component Value Date WBC 8.1 06/01/2024 RBC 4.70 06/01/2024 HGB 13.4 (L) 06/01/2024 HCT 41.2 (L) 06/01/2024 MCV 88.4 06/01/2024 MCHC 32.5 06/01/2024 RDW 13.0 06/01/2024 PLT 352 06/01/2024 MPV 8.8 06/01/2024 NRBC 0.0 06/01/2024 DIFF Lab Results Component Value Date LYMPHOPCT 31.2 05/24/2024 NEUTROABS 3.78 05/24/2024 LYMPHSABS 2.33 05/24/2024 MONOABS 1.08 (H) 05/24/2024 EOSABS 0.15 05/24/2024 BASOSABS 0.08 05/24/2024 IMMGRANABS 0.04 (H) 05/24/2024 RETIC No results found for: RETIC , RETICCTPCT Lab Results Component Value Date NA 137 06/01/2024 K 4.5 06/01/2024 CL 106 06/01/2024 CO2 26 06/01/2024 GLUCOSE 92 06/01/2024 BUN 17 06/01/2024 CREATININE 0.63 (L) 06/01/2024 CALCIUM 9.1 06/01/2024 PROT 6.6 06/01/2024 ALBUMIN 2.6 (L) 06/01/2024 BILITOT 0.5 06/01/2024 AST 52 (H) 06/01/2024 ALT 53 06/01/2024 ALKPHOS 108 06/01/2024 EGFR 100 06/01/2024 IMPRESSION & PLAN: #Impaired mobility and self-care -Secondary to CVA -Continue with PT/OT/speech #Acute ischmic CVA #Left hemiparesis -Aspirin 81 mg daily -Ezetimibe 10 mg daily -continue therapies -f/u Neurology after discharge #Hypertension -Amlodipine 5 mg daily #DMT2 -A1C 5.3 -Diabetic diet -ISS d/c pn 05/27 #Lumbar spinal stenosis -will plan for follow up with [facility] after discharge for further management #Insomnia -Melatonin 9mg QHS PRN discontinued on 06/03 given that medication causes fatigue the following day #Hyperammonemia, resolved -Present at [facility] on 05/17 however resolved #UTI -Amoxicillin 250mg Q8H x10 days (end date: 06/07) d/c on 05/31 and transitioned to Ceftin 250 mg BID x 7 days (end date: 06/07) #Bowel management -Colace 100mg BID -Miralax 17gm daily -Senna 2 tabs QHS DVT ppx: Continue Aspirin and ambulation with therapies as tolerated. SCDs to BLE when in bed. * LORNE Bach - 06/03/2024 3:41 PM EST Speech Language Pathology Speech Language Pathology Treatment Subjective BULK FLUIDS HANDLER Start Time: 1300 BULK FLUIDS HANDLER Stop Time: 1345 BULK FLUIDS HANDLER Time Calculation (min): 45 min Subjective: Pt was alert and sitting upright in bed for the session. Pt was pleasant and cooperative throughout the session. Pt presented w/ tangential speech and required frequent redirections to the task. Objective General Visit Info General Family/Caregiver Present: No Treatment Speech and Language Speech Treatment (Individual) Time Entry: 20 Verbal Expression: Pt was able to complete abstract categorization task w/ 38% accuracy indep. and 88% accuracy given mod A for breaking down the steps to identify the category and then the idea generation for the target word. Cognitive Skills Therapeutic Interventions Cognitive Skills Direct Contact Time Entry: 25 Memory: Pt was able to indep. recall 3/6 components of BE FAST. Pt was given max A for encoding andreviewed handout. Pt was able to immediately recall 6/6 indep., 6/6 after 30-second delay, 1-min delay, and 2-min delay and 5/6 given 5- min and 10-min and at the end of the session and 6/6 given gestural cues. Attention/Concentration: Pt was able to answer questions related to an article of interest w/ 63% accuracy indep. and 88% accuracy given multiple choice cues. Pt required frequent verbal cues to concentration on listening because pt presented w/ tangential speech during task. Reasoning: Pt was able to answer reasoning questions related to community and safety w/ 70% accuracy indep. and 100% given mod A for eleboration of responses and appropriate responses. Cognitive Skills Comments: re-assessment will be performed at the next session for goal review Assessment/Plan BULK FLUIDS HANDLER Assessment BULK FLUIDS HANDLER Assessment Results: Cognitive impairments Evaluation/Treatment Tolerance: Patient tolerated treatment well Plan Treatment/Interventions: Cognitive linguistic functioning BULK FLUIDS HANDLER Plan: Skilled BULK FLUIDS HANDLER BULK FLUIDS HANDLER Frequency: 5-7 days per week BULK FLUIDS HANDLER Duration of Sessions: 30-60 min per session Goals Encounter Problems Encounter Problems (Active) Template: Speech Therapy Problem: BULK FLUIDS HANDLER Group Home Goals Dates: Start: 05/24/24 Goal: Pt will improve cognitive linguistic skills to maximize indp for safe d/c back to community. Dates: Start: 05/24/24 Expected End: 06/14/24 Outcomes Date/Time User Outcome 05/28/24 1528 LORNE Bach Progressing Problem: BULK FLUIDS HANDLER Short Term Goals Dates: Start: 05/24/24 Goal: Pt will participate in additional cognitive linguistic assessment. (Resolved) Dates: Start: 05/24/24 Expected End: 05/27/24 Resolved: 06/01/24 Outcomes Date/Time User Outcome 06/01/24 JyotiLORNE Easley Completed Goal: Pt will improve immediate and delayed recall of functional information to 80% accuracy given mod A for strategies. Dates: Start: 05/24/24 Expected End: 05/31/24 Outcomes Date/Time User Outcome 06/03/24 LORNE Garcia Progressing Goal: Pt will participate in basic convergent/divergent categorization tasks at 80% accuracy given mod A. Dates: Start: 05/24/24 Expected End: 05/31/24 Outcomes Date/Time User Outcome 06/03/24 LORNE Garcia Not Progressing Goal: Pt will participate in basic mental flexibility/working memory tasks at 80% accuracy given mod A. Dates: Start: 05/24/24 Expected End: 05/31/24 Outcomes Date/Time User Outcome 05/26/24 1408 LORNE Bach Not Progressing Goal: Pt will complete functional tasks targeting executive functioning skills (planning, organization, mental flexibility) at 80% accuracy given mod A. Dates: Start: 05/25/24 Expected End: 06/01/24 Description: Outcomes Date/Time User Outcome 06/02/24 LORNE Fajardo Not Progressing Goal: Pt will complete sequencing tasks w/ 90% accuracy given mod A Dates: Start: 05/26/24 Expected End: 06/02/24 Description: Outcomes Date/Time User Outcome 06/02/24 LORNE Fajardo Not Progressing Goal: Pt will be able to answer problem-solving/reasoning tasks related to safety and ADLs w/ 90% accuracy given min A Dates: Start: 05/26/24 Expected End: 06/02/24 Description: Outcomes Date/Time User Outcome 06/03/24 LORNE Garcia Progressing Goal: Pt will be able to identify 2 post-stroke deficits given min A Dates: Start: 05/27/24 Expected End: 06/03/24 Description: Outcomes Date/Time User Outcome 06/02/24 1216 LORNE Bach Not Progressing Encounter Problems (Resolved) There are no resolved problems. Education Documentation Speech/Language, taught by LORNE Bach at 06/03/2024 3:41 PM. Learner: Patient Readiness: Acceptance Method: Explanation Response: Verbalizes Understanding, Needs Reinforcement Cognition, taught by LORNE Bach at 06/03/2024 3:41 PM. Learner: Patient Readiness: Acceptance Method: Explanation Response: Verbalizes Understanding, Needs Reinforcement Education Comments No comments found. Cosigned by LORNE Rodriguez at 06/03/2024 5:12 PM EST Associated attestation - Corina Curran SLP - 06/03/2024 5:12 PM EST I attest that I, Coby Curran M.S.,[facility]-B[employer]K [employer] HAND[employer]ER, was physically involved in the ongoing assessment, decision making, and interventions provided during today's patient care session. I have reviewed all documentation for today's 06/03/24, entered by Speech Therapy Fellow, Fanny Boyd, and further attest that it is an accurate clinical record of today's encounter, including accurate and appropriate charges. * Melissa Esteban RN - 06/03/2024 3:12 PM EST BRIANA received email from Tonie that PCP listed under patients [employer] was a group out of [facility] and would need to be corrected.CM called [employer] with patient and updated PCP to Dr. Sami Perez spoke to [place] at [facility] conf # [phone].CM called and update patient spouse Larry also explained that when Dr. Perez retires on 07/06 and patient is assigned a new PCP he will have to call t and update with the new PCP. * Jo Irizarry RN - 06/03/2024 1:34 PM EST Patient did not take Melatonin x2 nights. Patient reports he is sleeping well and now reports no vivid dreams. Dr Calles notified. Melatonin discontinued. * Carmenza Lazo RN - 06/03/2024 1:59 AM EST Problem: Cognitive: Womack Michael Fall Risk Goal: Last Known Fall Outcome: Progressing Goal: Mobility requiring assistance of person or device Outcome: Progressing Goal: Dizziness Outcome: Progressing Goal: Medications Outcome: Progressing Goal: Mental Status/LOC/Awareness Outcome: Progressing Goal: Toileting Needs Outcome: Progressing Goal: Volume and Electrolyte Status Outcome: Progressing Goal: Communication/Sensory Outcome: Progressing Goal: Behavior Outcome: Progressing Problem: Skin Integrity: Pressure Injury Actual or Risk of Goal: Will not develop new pressure injury Outcome: Progressing Goal: Skin integrity will improve Outcome: Progressing Goal: Risk for impaired skin integrity will decrease Outcome: Progressing Problem: Activity:Pressure Injury Actual or Risk of Goal: Mobility will improve Outcome: Progressing Problem: Nutritional:Pressure Injury Actual or Risk of Goal: Nutritional status will improve Outcome: Progressing Problem: Patient Specific Problem: Pressure Injury Actual or Risk of Goal: Patient Specific Outcome Outcome: Progressing Goals: Clinical Goals for the Shift: Become oriented to unit/floor/staff. To sleep better. Identify possible barriers to meeting goals/advancing plan of care: Pt slightly forgetful at times. Stability of the patient: Moderately Unstable - Medium risk of patient condition declining or worsening End of Shift Summary: Pt not as confused and anxious at night with Melatonin not being administered. He is using his call h[place] appropriately to ask for assist with voiding and other needs. PUPP bootsand Sequential stockings remain intact. Call h[place] in reach at all times. Pt encouraged to ring bellfor any needed assist. Hourly and prn safety checks maintained. * Theodore Clement OT - 06/02/2024 12:55 PM EST [facility] Occupational Therapy Treatment Note 06/02/24 Patient: Bob Alvaradoonnell : 1950 Age: 74 y.o. Gender: male Diagnosis: CVA (cerebral vascular accident) (CMS/HCC) Primary Rehab (Etiologic) Diagnosis: Patient Active Problem List Diagnosis CVA (cerebral vascular accident) (CMS/HCC) PMH: Past Medical History: Diagnosis Date HLD (hyperlipidemia) HTN (hypertension) Migraines Spinal stenosis PSH: History reviewed. No pertinent surgical history. Allergies: is allergic to acetaminophen, atorvastatin, glipizide, and rosuvastatin. Precautions: Precautions Medical Precautions: Fall Risk Safety Interventions: Call h[place] within reach, ID band on, Chair alarm RUE Weight Bearing Status: Full LUE Weight Bearing Status: Full RLE Weight Bearing Status: Full LLE Weight Bearing Status: Full Pain: Pain Assessment Pain Assessment: No/denies pain Subjective: My arms seems to get better everyday Procedures/Interventions: ADLs/IADLs Self Care/Home Management (ADLs) Time Entry: 15 Pt seated in w/c upon arrival, agreeable to participation. Pt positioned at sink for hand hygiene. Without cues, pt able to position L hand on sink to wash hands with S. Pt propelled self from room>gym with S with verbal cues for lifting L foot to propel w/c, touching A for steering. Balance/Neuromuscular Re-Education Neuromuscular Re-Education Time Entry: 75 Seated at table top in gym pt engaged in NMRE task with L UE. Pt tasked with grasping, and Transporting mcduffie bags from tabletop>target placed anteriorly to target shoulder flexion and elbow extension. Good digit flexion/extension noted. Initial touching A to achieve elbow extension due to motor apraxia. Pt able to retrieve mcduffie bags from table top including across midline with L UE. Increased time for assuming grasp on heavier mcduffie bags, unable to grasp/transport, thus task down graded to customer service and sales consultant mcduffie bags. Pt engaged in task to target L elbow extension. Pt tasked with pushing mcduffie bags to distal color coordinated cones on table top, with focus on L elbow extension. Occasional muscle belly tapping utilized. With increased time pt able to achieve adequate elbow extension to reach each target. Cues X2 for accuracy with matching color of mcduffie bags to cones. Pt performed task X mass reps with rest breaks taken throughout. Seated in w/c with mirror placed anteriorly for visual feedback, pt tasked with AAROM exercise withuse of 1lb dowel. Pt performed mass reps of shoulder flexion to 90, and elbow flexion. Initial assist to achieve full supination to grasp dowel during elbow flexion. Pt able to maintain grasp on dowel during elbow flexion with intermittent attempts to assume appropriate grasp. Pt provided printed handout of self AAROM. Pt able to return demo all exercises approprietly. Pt provided with printed handout and encouraged to perform in down time from therapy. Educated to performwithin pain free range. Pt propelled self back to room partial A for steering. SPT from w/c>recliner with partial A due to posterior LOB without AD. End of session pt seated in recliner with chair alarm on, call h[place] in reach, and all needs met. OT Assessment OT Assessment OT Assessment Results: Decreased ADL status, Decreased upper extremity range of motion, Decreased upper extremity strength, Decreased endurance, Decreased fine motor control, Decreased functional mobility, Decreased gross motor control, Decreased IADLs, Non-functional left upper extremity Prognosis: Good Evaluation/Treatment Tolerance: Patient tolerated treatment well motivated to participate throughout. Min verbal cues for attending to NMRE tasks. Pt would benefit from ongoing NMRE tasks to increasefunctional use of L UE. Pt self initiated use of L UE during self care tasks. OT Plan Plan Treatment Interventions: ADL retraining, Functional transfer training, UE strengthening/ROM, Endurance training, Patient/family training, Equipment evaluation/education, Neuromuscular reeducation, Fine motor coordination activities, Compensatory technique education OT Plan: Skilled OT OT Frequency : 5-7 days per week OT Duration of Sessions: 60-90 min per session OT Treatments per day: 1-2 times per day OT - Evaluation Status: Complete Equipment Recommended: (TBD prior to d/c) Goals: Encounter Problems Encounter Problems (Active) Template: Occupational Therapy Problem: OT Group Home Goals Dates: Start: 05/24/24 Goal: pt will be IND with lower body dressing AE PRN Dates: Start: 05/24/24 Expected End: 06/14/24 Goal: pt will be IND with upper body dressing Dates: Start: 05/24/24 Expected End: 06/14/24 Goal: pt will be IND with toilet txfer LRAD Dates: Start: 05/24/24 Expected End: 06/14/24 Goal: pt will ne IND with toileting tasks LRAD Dates: Start: 05/24/24 Expected End: 06/14/24 Goal: pt will be IND with footwear tasks AE PRN Dates: Start: 05/24/24 Expected End: 06/14/24 Problem: OT Short Term Goals Dates: Start: 05/24/24 Goal: Pt will be mod assist with upper body dressing (Resolved) Dates: Start: 05/24/24 Expected End: 05/31/24 Resolved: 05/30/24 Outcomes Date/Time User Outcome 05/30/24 Payam Aleman OT Completed Goal: Pt will me max assist with lower body dressing AE PRN (Resolved) Dates: Start: 05/24/24 Expected End: 05/31/24 Resolved: 05/30/24 Outcomes Date/Time User Outcome 05/30/24 Payam Aleman OT Completed Goal: Pt will be max assist with footwear AE PRN (Resolved) Dates: Start: 05/24/24 Expected End: 05/31/24 Resolved: 05/30/24 Outcomes Date/Time User Outcome 05/30/24 Payam Aleman OT Completed Goal: pt will be mod assist toilet txfer LRAD Dates: Start: 05/24/24 Expected End: 05/31/24 Goal: pt will be max assist with toileting tasks Dates: Start: 05/24/24 Expected End: 05/31/24 Encounter Problems (Resolved) There are no resolved problems. Education Documentation Body Mechanics, taught by Theodore Clement OT at 06/02/2024 2:14 PM. Learner: Patient Readiness: Acceptance Method: Explanation, Demonstration Response: Verbalizes Understanding, Demonstrated Understanding, Needs Reinforcement Activity/Positioning, taught by Theodore Clement OT at 06/02/2024 2:14 PM. Learner: Patient Readiness: Acceptance Method: Explanation, Demonstration Response: Verbalizes Understanding, Demonstrated Understanding, Needs Reinforcement Body Mechanics, taught by Theodore Clement OT at 06/02/2024 2:14 PM. Learner: Patient Readiness: Acceptance Method: Explanation, Demonstration Response: Verbalizes Understanding, Demonstrated Understanding, Needs Reinforcement Home Exercise Program, taught by Theodore Clement OT at 06/02/2024 2:14 PM. Learner: Patient Readiness: Acceptance Method: Explanation, Demonstration Response: Verbalizes Understanding, Demonstrated Understanding, Needs Reinforcement Education Comments No comments found. Smoking cessation Start/Stop Time OT Time Calculation OT Start Time: 1230 OT Stop Time: 1400 OT Time Calculation (min): 90 min Therapy Minutes: Occupational Therapy OT Individual: 90 * RadhaERIC Kay - 06/02/2024 12:29 PM EST Images from the original note were not included. [facility] Daily Progress Note Patient name: Bob Han : 1950 SUBJECTIVE: Patient seen and examined at bedside today. No acute events overnight. Denies headaches, dizziness,shortness of breath, chest pain, nausea, constipation. Denies any new pain. Reports that urinary incontinence has resolved. He reports today has been one of his best days yet. Increased movement to RUE. He is happy with hisprogress thus far. OBJECTIVE: Vitals: 06/01/24 1000 06/01/24 1543 06/02/24 0531 06/02/24 0834 BP: 134/78 127/62 129/64 129/62 BP Location: Right arm Patient Position: Sitting Pulse: 69 62 51 57 Resp: 18 18 Temp: 36.5 ??C (97.7 ??F) 36.2 ??C (97.2 ??F) 36.4 ??C (97.5 ??F) TempSrc: Oral SpO2: 97% 94% 97% Physical Examination: General: Alert, in no acute cardiopulmonary distress. Mental Status: Oriented to person, place and time. Normal affect. Head: Normocephalic. Eyes: Pupils are equal, round and reactive to light. Extraocular muscles intact. Ear, Nose and Throat: Oropharynx clear, mucous membranes moist. Ears and nose without masses, lesions or deformities. Neck: Supple, Trachea midline. Respiratory: Clear to auscultation and percussion. No wheezing, rales or rhonchi. Cardiovascular: Heart sounds normal. No thrills. Regular rate and rhythm, no murmurs, rubs or gallops. Gastrointestinal: Abdomen soft, non-tender, non-distended. Normal bowel sounds. Genitourinary: No costovertebral angle tenderness. Neurologic: Cranial nerves II-XII intact. Deep tendon reflexes +2 bilaterally. Negative Hoffmans sign bilaterally. Negative clonus bilaterally. + pronation and flexion drift of the left upper extremity with left upper extremity weakness 3+/5. Left lower extremity 5 minus/5, hyperreflexia on the left side with an extensor plantar response.Sensation intact bilaterally. Skin: No rashes or lesions. No petechiae or purpura. No edema. Musculoskeletal: No cyanosis or clubbing. No gross deformities. Normal range of motion to RUE and b/l LE. Limited rom due to weakness on LUE (3/5 strength throughout left upper extremity) CURRENT INPATIENT MEDICATIONS: Current Facility-Administered Medications: aluminum-magnesium hydroxide-simethicone (MAALOX) 200-200-20 mg/5 mL suspension 30 mL, 30 mL, oral,q4h PRN, Wen Calles, amLODIPine (NORVASC) tablet 5 mg, 5 mg, oral, Daily, Wen Calles, DO, 5 mg at 06/02/24 0836 aspirin chewable tablet 81 mg, 81 mg, oral, Daily, Wenjesus Calles, DO, 81 mg at 06/02/24 0836 bisacodyL (DULCOLAX) suppository 10 mg, 10 mg, rectal, Daily PRN, Wen Calles, DO, 10 mg at05/26/24 1348 cefuroxime (CEFTIN) tablet 250 mg, 250 mg, oral, BID Pretty PA, 250 mg at 06/02/24 0536 dextrose (D50W) 50% injection 12.5 g, 12.5 g, intravenous, q15 min PRN, ERIC Carbone dextrose (D50W) 50% injection 25 g, 25 g, intravenous, q15 min PRN, ERIC Carbone dextrose 15 gram/60 mL oral solution 15 g, 15 g, oral, q15 min PRN, ERIC Carbone dextrose 15 gram/60 mL oral solution 30 g, 30 g, oral, q15 min PRN, ERIC Carbone docusate sodium (COLACE) capsule 100 mg, 100 mg, oral, BID, Wen Calles, DO, 100 mg at 06/02/24 0836 ezetimibe (ZETIA) tablet 10 mg, 10 mg, oral, Daily, Wen A Stevan, DO, 10 mg at 06/02/24 0836 Glucagon HCl (rDNA) injection 1 mg, 1 mg, intramuscular, Once PRN, ERIC Carbone magnesium hydroxide (MILK OF MAGNESIA) 400 mg/5 mL suspension 30 mL, 30 mL, oral, Daily PRN, Wen A Stevan, DO, 30 mL at 05/30/24 1357 melatonin tablet 9 mg, 9 mg, oral, Nightly PRN, Wen A Stevan, DO, 9 mg at 05/30/24 2134 nystatin (MYCOSTATIN) 100,000 unit/gram powder, , Topical, BID, Wen A Stevan, DO, Given at 06/02/24 0840 polyethylene glycol (MIRALAX) packet 17 g, 17 g, oral, Daily, ERIC Chisholm, 17 g at 06/02/24 0836 senna (SENOKOT) tablet 17.2 mg, 2 tablet, oral, Nightly, ERIC Chisholm, 17.2 mg at 05/31/242053 LABS: Lab Results Component Value Date WBC 8.1 06/01/2024 RBC 4.70 06/01/2024 HGB 13.4 (L) 06/01/2024 HCT 41.2 (L) 06/01/2024 MCV 88.4 06/01/2024 MCHC 32.5 06/01/2024 RDW 13.0 06/01/2024 PLT 352 06/01/2024 MPV 8.8 06/01/2024 NRBC 0.0 06/01/2024 DIFF Lab Results Component Value Date LYMPHOPCT 31.2 05/24/2024 NEUTROABS 3.78 05/24/2024 LYMPHSABS 2.33 05/24/2024 MONOABS 1.08 (H) 05/24/2024 EOSABS 0.15 05/24/2024 BASOSABS 0.08 05/24/2024 IMMGRANABS 0.04 (H) 05/24/2024 RETIC No results found for: RETIC , RETICCTPCT Lab Results Component Value Date NA 137 06/01/2024 K 4.5 06/01/2024 CL 106 06/01/2024 CO2 26 06/01/2024 GLUCOSE 92 06/01/2024 BUN 17 06/01/2024 CREATININE 0.63 (L) 06/01/2024 CALCIUM 9.1 06/01/2024 PROT 6.6 06/01/2024 ALBUMIN 2.6 (L) 06/01/2024 BILITOT 0.5 06/01/2024 AST 52 (H) 06/01/2024 ALT 53 06/01/2024 ALKPHOS 108 06/01/2024 EGFR 100 06/01/2024 IMPRESSION & PLAN: #Impaired mobility and self-care -Secondary to CVA -Continue with PT/OT/speech #Acute ischmic CVA #Left hemiparesis -Aspirin 81 mg daily -Ezetimibe 10 mg daily -continue therapies -f/u Neurology after discharge #Hypertension -Amlodipine 5 mg daily #DMT2 -A1C 5.3 -Diabetic diet -ISS d/c pn 05/27 #Lumbar spinal stenosis -will plan for follow up with [facility] after discharge for further management #Hyperammonemia, resolved -Present at [facility] on 05/17 however resolved #UTI -Amoxicillin 250mg Q8H x10 days (end date: 06/07) d/c on 05/31 and transitioned to Ceftin 250 mg BID x 7 days (end date: 06/07) #Bowel management -Colace 100mg BID -Miralax 17gm daily -Senna 2 tabs QHS DVT ppx: Continue Aspirin and ambulation with therapies as tolerated. SCDs to BLE when in bed. Cosigned by Wen Calles DO at 06/03/2024 11:08 AM EST Associated attestation - Wen Calles DO - 06/03/2024 11:08 AM EST Agree with progress note, assessment, and plan as documented by PA today. * Fanny Boyd, BULK FLUIDS HANDLER - 06/02/2024 12:16 PM EST Speech Language Pathology Speech Language Pathology Treatment Subjective BULK FLUIDS HANDLER Start Time: 1030 BULK FLUIDS HANDLER Stop Time: 1130 BULK FLUIDS HANDLER Time Calculation (min): 60 min Subjective: Pt was alert and sitting upright in armchair at the start of the session. Pt was brought to the hospital pharmacy to target executive functioning and memory skills. Pt was pleasant and cooperative throughout the session. Objective General Visit Info General Family/Caregiver Present: No Treatment Speech and Language Speech Treatment (Individual) Time Entry: 15 Verbal Expression: Pt was able to produce 8/15 in a concrete category indep. and 13/15 given min A for use of strategies such as association and visualization and 15/15 given mod A for idea generation. Cognitive Skills Therapeutic Interventions Cognitive Skills Direct Contact Time Entry: 45 Organization: Pt was given initial and min verbal cues for visual markers when going from his room to the pharmacy. Pt required mod-max A for navigation back to his room from the pharmacy. Pt engagedin a conversation about safety when going for walks upon d/c. Pt verbalized agreement that it is not safe for him to walk alone in the [place] upon d/c. Sequencing: Pt required mod verbal cues for hand placement during transfer from chair to wheelchair. Pt required mod verbal cues for use of wheelchair brakes throughout the session. Memory: Pt was tasked w/ recalling 3/3 items from the pharmacy given mod A for encoding. Pt was able to recall 3/3 after 30-second delay, 3/3 after 1-min delay, 2/3 after 2-min delay, 3/3 after 5-mindelay, 1/3 after 10-min delay w/ 3/3 given semantic cues, and 3/3 given 15-min delay. Attention/Concentration: Pt required overall mod verbal cues for visual scanning while identifying 5/5 target items in store. Pt was provided education about lightCortus SA model for visual scanning and was receptive to use and had increased accuracy given model. Pt was able to identify 1/5 indep. and 5/5 given mod vebral cues for use of strategies. Assessment/Plan BULK FLUIDS HANDLER Assessment BULK FLUIDS HANDLER Assessment Results: Cognitive impairments Evaluation/Treatment Tolerance: Patient tolerated treatment well Plan Treatment/Interventions: Cognitive linguistic functioning BULK FLUIDS HANDLER Plan: Skilled BULK FLUIDS HANDLER BULK FLUIDS HANDLER Frequency: 5-7 days per week BULK FLUIDS HANDLER Duration of Sessions: 30-60 min per session BULK FLUIDS HANDLER Treatments per day: 1 time per day Goals Encounter Problems Encounter Problems (Active) Template: Speech Therapy Problem: BULK FLUIDS HANDLER Master Sonar Technician Goals Dates: Start: 05/24/24 Goal: Pt will improve cognitive linguistic skills to maximize indp for safe d/c back to community. Dates: Start: 05/24/24 Expected End: 06/14/24 Outcomes Date/Time User Outcome 05/28/24 1528 LORNE Bach Progressing Problem: BULK FLUIDS HANDLER Short Term Goals Dates: Start: 05/24/24 Goal: Pt will participate in additional cognitive linguistic assessment. (Resolved) Dates: Start: 05/24/24 Expected End: 05/27/24 Resolved: 06/01/24 Outcomes Date/Time User Outcome 06/01/24 1227 LORNE Bach Completed Goal: Pt will improve immediate and delayed recall of functional information to 80% accuracy given mod A for strategies. Dates: Start: 05/24/24 Expected End: 05/31/24 Outcomes Date/Time User Outcome 06/02/24 121LORNE Bernstein Progressing Goal: Pt will participate in basic convergent/divergent categorization tasks at 80% accuracy given mod A. Dates: Start: 05/24/24 Expected End: 05/31/24 Outcomes Date/Time User Outcome 06/02/24 121LORNE Bernstein Progressing Goal: Pt will participate in basic mental flexibility/working memory tasks at 80% accuracy given mod A. Dates: Start: 05/24/24 Expected End: 05/31/24 Outcomes Date/Time User Outcome 05/26/24 1408 LORNE Bach Not Progressing Goal: Pt will complete functional tasks targeting executive functioning skills (planning, organization, mental flexibility) at 80% accuracy given mod A. Dates: Start: 05/25/24 Expected End: 06/01/24 Description: Outcomes Date/Time User Outcome 06/02/24 LORNE Fajardo Not Progressing Goal: Pt will complete sequencing tasks w/ 90% accuracy given mod A Dates: Start: 05/26/24 Expected End: 06/02/24 Description: Outcomes Date/Time User Outcome 06/02/24 1216 LORNE Bach Not Progressing Goal: Pt will be able to answer problem-solving/reasoning tasks related to safety and ADLs w/ 90% accuracy given min A Dates: Start: 05/26/24 Expected End: 06/02/24 Description: Outcomes Date/Time User Outcome 06/01/24 1228 LORNE Bach Not Progressing Goal: Pt will be able to identify 2 post-stroke deficits given min A Dates: Start: 05/27/24 Expected End: 06/03/24 Description: Outcomes Date/Time User Outcome 06/02/24 1216 LORNE Bach Not Progressing Encounter Problems (Resolved) There are no resolved problems. Education Documentation Speech/Language, taught by LORNE Bach at 06/02/2024 12:16 PM. Learner: Patient Readiness: Acceptance Method: Explanation Response: Verbalizes Understanding Cognition, taught by LORNE Bach at 06/02/2024 12:16 PM. Learner: Patient Readiness: Acceptance Method: Explanation Response: Verbalizes Understanding Education Comments No comments found. Cosigned by LORNE Rodriguez at 06/02/2024 1:08 PM EST Associated attestation - Corina Curran SLP - 06/02/2024 1:08 PM EST I attest that I, Coby Curran M.S.,[facility]-BULK [employer]UIDS HAND[employer]ER, was physically involved in the ongoing assessment, decision making, and interventions provided during today's patient care session. I have reviewed all documentation for today's 06/02/24, entered by Speech Therapy Fellow, Fanny Boyd, and further attest that it is an accurate clinical record of today's encounter, including accurate and appropriate charges. * Gay Jacques - 06/02/2024 9:52 AM EST SPIRITUAL CARE Date/Time:06/02/24 at 9:52 AM EST Type of Visit: Initial Visit and Oil Painter Rounding Reason for Visit: Spiritual/Emotional Support and Spiritual Assessment Time Spent: 25 Minutes Location: [address] [place] [address] Sacramental Encounters: Sacrament of Sick-Anointing: Anointed Spiritual Distress Assessment: Spiritual Distress Assessment at beginning of visit Meaning - Overall Life Balance: No evidence of unmet spiritual need Transcendence: No evidence of unmet spiritual need Values - Acknowledgement: No evidence of unmet spiritual need Values - Control: No evidence of unmet spiritual need Psycho-Social Identity: No evidence of unmet spiritual need SDAT Beginning of Visit Average Score: 0 Spiritual Distress Assessment at end of visit Meaning - Overall Life Balance: No evidence of unmet spiritual need Transcendence: No evidence of unmet spiritual need Values - Acknowledgement: No evidence of unmet spiritual need Values - Control: No evidence of unmet spiritual need Psycho-Social Identity: No evidence of unmet spiritual need SDAT End of Visit Average Score: 0 Spiritual Assessment/Distress Spiritual Care Assessment: Assessment: Bob, was awake, alert and resting in chair at the time of visit. Shared reason for hospitalization. Happy and thankful for the progress and improvement. Voiced strong family support and love. Listen as he shared memories of raising their family. Connecting to his [place] origin, shared generations of family involvement in [facility], dedication to preserving [place] culture, supportingcommunities etc. Looking forward to upcoming celebration. Sabine relation is Zoroastrian. Administered anointing of the sick. Prayed for recovery and good health. Thankful for the visit and support. Intervention: NE Spiritual Care Interventions : provided support, explored hope, facilitate life review, facilitate storytelling, listened empathically, and provided prayer Outcomes: distress reduced, expressed gratitude, expressed humor, and expressed peace Plan of Care: Visit as needed *Reference: Spiritual Distress Assessment Tool: The SDAT is a clinical tool used by chaplains to identify unmet spiritual and emotional needs that can impact Goals of Care in the following categories: Spiritual Distress Assessment Legend Spiritual Needs Related Questions Meaning Are you having difficulties coping with what is happening to your now? Does your hospitalization have any repercussions on the way you live usually? Transcendence Do you have a particular restorationism, sabine, or spirituality? Is your restorationism/spirituality/sabine challenged by what is happening to you now? Values Do you think that the health professionals caring for you know you well enough? Do you feel that you are participating in the decisions made about your care? Psycho-Social Identity Do you have any worries or difficulties regarding your family or other persons close to you? Do you feel lonely? Do you have links to your sabine community? SCALE 0= no evidence of unmet spiritual needs 1= some evidence of unmet spiritual needs 2= substantial evidence of unmet spiritual needs 3= evidence of severe unmet spiritual needs * Mirlande Aquino, PT - 06/02/2024 9:09 AM EST [facility] Physical Therapy Treatment Note 06/02/2024 Patient: Bob Han : 1950 Age: 74 y.o. Gender: male Primary Language: Argentine Diagnosis: CVA (cerebral vascular accident) (CMS/HCC) Past Medical History: Diagnosis Date HLD (hyperlipidemia) HTN (hypertension) Migraines Spinal stenosis History reviewed. No pertinent surgical history. Allergies: is allergic to acetaminophen, atorvastatin, glipizide, and rosuvastatin. Precautions: Medical Precautions: Fall Risk Safety Interventions: Call [place] within reach, ID band on, Chair alarm RUE Weight Bearing Status: Full LUE Weight Bearing Status: Full RLE Weight Bearing Status: Full LLE Weight Bearing Status: Full SUBJECTIVE Pt report: My back hurts a little Pain:0/10 OBJECTIVE General Observation: Supine in bed agreeable to participating in therapy session. Procedure/Treatment: Neuromuscular Reeducation: Balance/Neuromuscular Re-Education Neuromuscular Re-Education Time Entry: 90 Pt supine in bed agreeable to participating in therapy session. Pt completed bed mobility max-A x1.Pt completed STS partial A for more than steadying assistance. Pt transferring partial A to commode. Pt did not have BM on commode, partial A for pull STS to don pants and brief, chair swap to WC. Ptdep. Brought down to therapy gym in . Pt completed STS partial A for more than steadying assistanc e, ambulating x10ft with LBQC, partial A x1, pt needing max cues for sequencing with use of AD. Pt educated on BE FAST, pt able to recall speech unable to recall 5/6 other signs and symptoms of stroke. Pt ambulating x15ft with LBQC partial A for more than steadying assistance, no LOB. Pt completed x12 stairs with RUE on L ascending rail mod cues for step to pattern ascending and descending stairs, with increased stairs, pt with decreased foot clearance on step, no overt LOB. When pt turning to sit to WC, max-a for controlled descent into WC. Pt completed x100ft of WC mobility back to room, partial A x1. Pt completed stand pivot transfer to recliner, partial a for STS and max-a for transfer d/t posterior LOB into chair. Pt left seated in WC, call [place] in reach, chair alarm on, all needs met. Education: Education Documentation Mobility Training, taught by Mirlande Aquino PT at 06/02/2024 9:17 AM. Learner: Patient Readiness: Acceptance Method: Explanation, Demonstration Response: Verbalizes Understanding, Demonstrated Understanding Comment: BE FAST signs and symoptoms of stroke, balance, endurance. Education Comments No comments found. ASSESSMENT Pt able to complete x12 stairs with L ascending railing step to pattern, partial A x1. Pt increasingly fatigued this date with mobility. PT Assessment PT Assessment Results: Decreased strength, Decreased range of motion, Decreased endurance, Impairedbalance, Impaired gait Prognosis: Good Equipment: TBD Plan of Care Plan Treatment/Interventions: Functional transfer training, LE strengthening/ROM, Endurance training, Cognitive reorientation, Bed mobility, Gait training, Balance training, Continued evaluation, Compensatory technique education PT Plan: Skilled PT PT Frequency: 5-7 days per week PT Duration of Sessions: 60-90 min per session PT Treatments per day: 1 time per day PT Discharge Recommendations: Other (Comment) (TBD) Problems/Goals Goals: Encounter Problems Encounter Problems (Active) Template: Physical Therapy Problem: PT Master Sonar Technician Goals Dates: Start: 05/24/24 Goal: mod-I ambulation x150ft Dates: Start: 05/24/24 Outcomes Date/Time User Outcome 05/31/24 1137 Mirlande Aquino, LUIS MANUEL Progressing Goal: mod-I x12 stairs unilat. railing Dates: Start: 05/24/24 Outcomes Date/Time User Outcome 05/31/24 1137 Mirlande Aquino PT Progressing Goal: mod-I bed mobility Dates: Start: 05/24/24 Outcomes Date/Time User Outcome 05/31/24 1137 Mirlande Aquino PT Progressing Goal: mod-I transfers Dates: Start: 05/24/24 Outcomes Date/Time User Outcome 05/31/24 1137 Mirlande Aquino PT Progressing Problem: PT Short Term Goals Dates: Start: 05/24/24 Goal: SUP bed mobility Dates: Start: 05/24/24 Outcomes Date/Time User Outcome 05/31/24 113Matthew Aquino PT Progressing Goal: partial A transfers LRAD (Resolved) Dates: Start: 05/24/24 Resolved: 05/31/24 Outcomes Date/Time User Outcome 05/31/24 113Matthew Aquino PT Completed Goal: partial A x50ft LRAD ambulation Dates: Start: 05/24/24 Outcomes Date/Time User Outcome 05/31/24 113Matthew Aquino PT Progressing Goal: partial A x4 stairs (Resolved) Dates: Start: 05/24/24 Resolved: 05/31/24 Outcomes Date/Time User Outcome 05/31/24 Deven Aquino PT Completed Encounter Problems (Resolved) There are no resolved problems. Session Start/Stop Time: 829 1000 Therapy Minutes Physical Therapy PT Individual: 90 * Wen Calles DO - 06/01/2024 4:42 PM EST Images from the original note were not included. [facility] Daily Progress Note Patient name: Bob Han : 1950 SUBJECTIVE: Patient seen and examined at bedside today. No acute events overnight. Denies headaches, dizziness,shortness of breath, chest pain, nausea, constipation. Denies any new pain. Reports that urinary incontinence has resolved. TEAM CONFERENCE: I was present and participated in team meeting today. I agree with team conferenceplan as documented in alternate note today. Please refer to team conference note for further details. OBJECTIVE: Vitals: 02/11/25 2316 06/01/24 0740 06/01/24 1000 06/01/24 1543 BP: (!) 123/48 124/66 134/78 127/62 BP Location: Right arm Right arm Right arm Patient Position: Lying Lying Sitting Pulse: 60 55 69 62 Resp: 18 18 18 Temp: 36.5 ??C (97.7 ??F) 36.5 ??C (97.7 ??F) 36.5 ??C (97.7 ??F) TempSrc: Oral Oral SpO2: 95% 95% 97% Physical Examination: General: Alert, in no acute cardiopulmonary distress. Mental Status: Oriented to person, place and time. Normal affect. Head: Normocephalic. Eyes: Pupils are equal, round and reactive to light. Extraocular muscles intact. Ear, Nose and Throat: Oropharynx clear, mucous membranes moist. Ears and nose without masses, lesions or deformities. Neck: Supple, Trachea midline. Respiratory: Clear to auscultation and percussion. No wheezing, rales or rhonchi. Cardiovascular: Heart sounds normal. No thrills. Regular rate and rhythm, no murmurs, rubs or gallops. Gastrointestinal: Abdomen soft, non-tender, non-distended. Normal bowel sounds. Genitourinary: No costovertebral angle tenderness. Neurologic: Cranial nerves II-XII intact. Deep tendon reflexes +2 bilaterally. Negative Hoffmans sign bilaterally. Negative clonus bilaterally. + pronation and flexion drift of the left upper extremity with left upper extremity weakness 3+/5. Left lower extremity 5 minus/5, hyperreflexia on the left side with an extensor plantar response.Sensation intact bilaterally. Skin: No rashes or lesions. No petechiae or purpura. No edema. Musculoskeletal: No cyanosis or clubbing. No gross deformities. Normal range of motion to RUE and b/l LE. Limited rom due to weakness on LUE (3/5 strength throughout left upper extremity) CURRENT INPATIENT MEDICATIONS: Current Facility-Administered Medications: aluminum-magnesium hydroxide-simethicone (MAALOX) 200-200-20 mg/5 mL suspension 30 mL, 30 mL, oral,q4h PRN, Wen Calles, amLODIPine (NORVASC) tablet 5 mg, 5 mg, oral, Daily, Wen A Stevan, DO, 5 mg at 06/01/24 0900 aspirin chewable tablet 81 mg, 81 mg, oral, Daily, Wen A Stevan, DO, 81 mg at 06/01/24 0900 bisacodyL (DULCOLAX) suppository 10 mg, 10 mg, rectal, Daily PRN, Wen A Stevan, DO, 10 mg at05/26/24 1348 cefuroxime (CEFTIN) tablet 250 mg, 250 mg, oral, BID Pretty BERNSTEIN PA, 250 mg at 06/01/24 1639 dextrose (D50W) 50% injection 12.5 g, 12.5 g, intravenous, q15 min PRN, ERIC Carbone dextrose (D50W) 50% injection 25 g, 25 g, intravenous, q15 min PRN, ERIC Carbone dextrose 15 gram/60 mL oral solution 15 g, 15 g, oral, q15 min PRN, ERIC Carbone dextrose 15 gram/60 mL oral solution 30 g, 30 g, oral, q15 min PRN, ERIC Carbone docusate sodium (COLACE) capsule 100 mg, 100 mg, oral, BID, Wen A Stevan, DO, 100 mg at 06/01/24 0900 ezetimibe (ZETIA) tablet 10 mg, 10 mg, oral, Daily, Wen A Stevan, DO, 10 mg at 06/01/24 0859 Glucagon HCl (rDNA) injection 1 mg, 1 mg, intramuscular, Once PRN, ERIC Carbone magnesium hydroxide (MILK OF MAGNESIA) 400 mg/5 mL suspension 30 mL, 30 mL, oral, Daily PRN, Wen A Stevan, DO, 30 mL at 05/30/24 1357 melatonin tablet 9 mg, 9 mg, oral, Nightly PRN, Wen A Stevan, DO, 9 mg at 05/30/24 2134 nystatin (MYCOSTATIN) 100,000 unit/gram powder, , Topical, BID, Wen A Stevan, DO, Given at 06/01/24 0901 polyethylene glycol (MIRALAX) packet 17 g, 17 g, oral, Daily, ERIC Chisholm, 17 g at 06/01/24 0859 senna (SENOKOT) tablet 17.2 mg, 2 tablet, oral, Nightly, ERIC Chisholm, 17.2 mg at 05/31/242053 LABS: Lab Results Component Value Date WBC 8.1 06/01/2024 RBC 4.70 06/01/2024 HGB 13.4 (L) 06/01/2024 HCT 41.2 (L) 06/01/2024 MCV 88.4 06/01/2024 MCHC 32.5 06/01/2024 RDW 13.0 06/01/2024 PLT 352 06/01/2024 MPV 8.8 06/01/2024 NRBC 0.0 06/01/2024 DIFF Lab Results Component Value Date LYMPHOPCT 31.2 05/24/2024 NEUTROABS 3.78 05/24/2024 LYMPHSABS 2.33 05/24/2024 MONOABS 1.08 (H) 05/24/2024 EOSABS 0.15 05/24/2024 BASOSABS 0.08 05/24/2024 IMMGRANABS 0.04 (H) 05/24/2024 RETIC No results found for: RETIC , RETICCTPCT Lab Results Component Value Date NA 137 06/01/2024 K 4.5 06/01/2024 CL 106 06/01/2024 CO2 26 06/01/2024 GLUCOSE 92 06/01/2024 BUN 17 06/01/2024 CREATININE 0.63 (L) 06/01/2024 CALCIUM 9.1 06/01/2024 PROT 6.6 06/01/2024 ALBUMIN 2.6 (L) 06/01/2024 BILITOT 0.5 06/01/2024 AST 52 (H) 06/01/2024 ALT 53 06/01/2024 ALKPHOS 108 06/01/2024 EGFR 100 06/01/2024 IMPRESSION & PLAN: #Impaired mobility and self-care -Secondary to CVA -Continue with PT/OT/speech #Acute ischmic CVA #Left hemiparesis -Aspirin 81 mg daily -Ezetimibe 10 mg daily -continue therapies -f/u Neurology after discharge #Hypertension -Amlodipine 5 mg daily #DMT2 -A1C 5.3 -Diabetic diet -ISS d/c pn 05/27 #Lumbar spinal stenosis -will plan for follow up with [facility] after discharge for further management #Hyperammonemia, resolved -Present at [facility] on 05/17 however resolved #UTI -Amoxicillin 250mg Q8H x10 days (end date: 06/07) d/c on 05/31 and transitioned to Ceftin 250 mg BID x 7 days (end date: 06/07) #Bowel management -Colace 100mg BID -Miralax 17gm daily -Senna 2 tabs QHS DVT ppx: Continue Aspirin and ambulation with therapies as tolerated. SCDs to BLE when in bed. * Mirlande Aquino, PT - 06/01/2024 3:52 PM EST [facility] Physical Therapy Treatment Note 06/01/2024 Patient: Bob Han : 1950 Age: 74 y.o. Gender: male Primary Language: Argentine Diagnosis: CVA (cerebral vascular accident) (CMS/HCC) Past Medical History: Diagnosis Date HLD (hyperlipidemia) HTN (hypertension) Migraines Spinal stenosis History reviewed. No pertinent surgical history. Allergies: is allergic to acetaminophen, atorvastatin, glipizide, and rosuvastatin. Precautions: Medical Precautions: Fall Risk Safety Interventions: Call [place] within reach, ID band on, Chair alarm RUE Weight Bearing Status: Full LUE Weight Bearing Status: Full RLE Weight Bearing Status: Full LLE Weight Bearing Status: Full SUBJECTIVE Pt report: Thank you. Pain: 0/10 OBJECTIVE General Observation: Seated in WC agreeable to participating in therapy session. Procedure/Treatment: Neuromuscular Reeducation: Balance/Neuromuscular Re-Education Neuromuscular Re-Education Time Entry: 90 Pt seated in WC agreeable to participating in therapy session with pts spouse Larry present. Pt completed WC mobility steadying assistance-partial A down to therapy gym in WC. Pt completed x8 stairs with L ascending railing, partial A x1, cues for step to pattern. Per Larry, pt has x17 stairs with L ascending railing and 3 DAWN with L ascending railing. Pt completed 3x10ft of ambulation with laurel-walker, partial A x1 step to pattern. Pt progressed to LBQC, partial A x1, 3x15ft step to pattern. Pt then completed x8 stairs with L ascending rail step to pattern, partial A x1, x1 instance of posterior LOB on stairs, needing assistance to correct for LOB. Per Larry, he can assist as needed on d/cfor physical assistance. Education provided on fall risk and stroke. Pt dep. Brought back to room in WC. Pt completed partial A stand pivot transfer with no AD to recliner. Pt left seated in recliner, call [place] in reach, chair alarm on, all needs met. Larry to obtain measurements for home, doorways, heights of bed. Education: Education Documentation Mobility Training, taught by Mirlande Aquino PT at 06/01/2024 4:00 PM. Learner: Significant Other, Patient Readiness: Acceptance Method: Explanation, Demonstration Response: Verbalizes Understanding, Demonstrated Understanding Comment: POC and goals, D/c planning. Education Comments No comments found. ASSESSMENT Pt progressed to LBQC for ambulation x15ft partial A x1, pt needing cues for turning to sit in WC. PT Assessment PT Assessment Results: Decreased strength, Decreased range of motion, Decreased endurance, Impairedbalance, Impaired gait Prognosis: Good Equipment: TBD Plan of Care Plan Treatment/Interventions: Functional transfer training, LE strengthening/ROM, Endurance training, Cognitive reorientation, Bed mobility, Gait training, Balance training, Continued evaluation, Compensatory technique education PT Plan: Skilled PT PT Frequency: 5-7 days per week PT Duration of Sessions: 60-90 min per session PT Treatments per day: 1 time per day PT Discharge Recommendations: Other (Comment) (TBD) Problems/Goals Goals: Encounter Problems Encounter Problems (Active) Template: Physical Therapy Problem: PT Group Home Goals Dates: Start: 05/24/24 Goal: mod-I ambulation x150ft Dates: Start: 05/24/24 Outcomes Date/Time User Outcome 05/31/24 1137 Mirlande Aquino, PT Progressing Goal: mod-I x12 stairs unilat. railing Dates: Start: 05/24/24 Outcomes Date/Time User Outcome 05/31/24 113Matthew Aquino PT Progressing Goal: mod-I bed mobility Dates: Start: 05/24/24 Outcomes Date/Time User Outcome 05/31/24 Deven Aquino PT Progressing Goal: mod-I transfers Dates: Start: 05/24/24 Outcomes Date/Time User Outcome 05/31/24 113Matthew Aquino PT Progressing Problem: PT Short Term Goals Dates: Start: 05/24/24 Goal: SUP bed mobility Dates: Start: 05/24/24 Outcomes Date/Time User Outcome 05/31/24 113Matthew Aquino PT Progressing Goal: partial A transfers LRAD (Resolved) Dates: Start: 05/24/24 Resolved: 05/31/24 Outcomes Date/Time User Outcome 05/31/24 Deven Aquino PT Completed Goal: partial A x50ft LRAD ambulation Dates: Start: 05/24/24 Outcomes Date/Time User Outcome 05/31/24 Deven Aquino PT Progressing Goal: partial A x4 stairs (Resolved) Dates: Start: 05/24/24 Resolved: 05/31/24 Outcomes Date/Time User Outcome 05/31/24 Deven Aquino PT Completed Encounter Problems (Resolved) There are no resolved problems. Session Start/Stop Time: 1230 1400 Therapy Minutes Physical Therapy PT Individual: 90 * ERIC Chisholm - 06/01/2024 12:59 PM EST Images from the original note were not included. SUSU PROGRESS NOTE Date: 06/01/2024 Author: ERIC Chisholm Patient ID: Bob Han is a 74 y.o. male : 1950 MR#: [id number] SUBJECTIVE Subjective Patient reports he is moving his bowels he is voiding. He is participating with therapy as symptomsimproving his appetite is fair. He has no new concerns ROS Constitutional :no fever chills , appetite fair, sleeping well HEENT: denies headaches Respiratory: denies shortness of breath, coughing or wheezing Cardiac: denies chest pain, palpitations, : No abd pain, no N/V. Genitourinary: see above Musculoskeletal: Arthritic pain to his joints chronic back pain Allergies Acetaminophen, Atorvastatin, Glipizide, and Rosuvastatin Current Medications: amLODIPine, 5 mg, oral, Daily aspirin, 81 mg, oral, Daily cefuroxime, 250 mg, oral, BID AC docusate sodium, 100 mg, oral, BID ezetimibe, 10 mg, oral, Daily nystatin, , Topical, BID polyetheylene glycol, 17 g, oral, Daily senna, 2 tablet, oral, Nightly PRN medications: aluminum-magnesium hydroxide-simethicone, bisacodyL, dextrose 50%, dextrose 50%, dextrose, dextrose, glucagon injection, magnesium hydroxide, melatonin OBJECTIVE Vitals: 05/31/24 1532 05/31/24 2316 06/01/24 0740 06/01/24 1000 BP: (!) 149/68 (!) 123/48 124/66 134/78 BP Location: Right arm Right arm Right arm Right arm Patient Position: Sitting Lying Lying Sitting Pulse: 58 60 55 69 Resp: 16 18 18 Temp: 36.5 ??C (97.7 ??F) 36.5 ??C (97.7 ??F) 36.5 ??C (97.7 ??F) TempSrc: Oral Oral Oral SpO2: 98% 95% 95% PHYSICAL EXAM General: conscious alert no acute distress HEENT: pupils are equal round and reactive. extraocular movements are grossly intact lungs clear to auscultation, no wheezing or crackles noted heart regular rate and rhythm, no murmur or rubs abdomen soft nontender nondistended positive bowel sounds Musculoskeletal: No gross deformity to joints extremities without edema, erythema or calf tenderness neuro: Left upper extremity weakness skin: no rashes or lesions. psych: mood stable appearing, good eye contact. LABS HEMATOLOGY Lab Results Component Value Date WBC 8.1 06/01/2024 HGB 13.4 (L) 06/01/2024 HCT 41.2 (L) 06/01/2024 MCV 88.4 06/01/2024 PLT 352 06/01/2024 CHEMISTRY Lab Results Component Value Date GLUCOSE 92 06/01/2024 NA 137 06/01/2024 K 4.5 06/01/2024 CO2 26 06/01/2024 CL 106 06/01/2024 BUN 17 06/01/2024 CREATININE 0.63 (L) 06/01/2024 EGFR 100 06/01/2024 CALCIUM 9.1 06/01/2024 ANIONGAP 5 06/01/2024 Imaging: No image results found. ASSESSMENT & PLAN 73 y/o male hx of HTN, diabetes no longer on medication after wt loss who presented to [facility] left-sided weakness Acute ischemic CVA-acute pontine CVA CTA of the head and neck no acute stroke. Echocardiogram EF of 63%, moderate aortic valve stenosis Family history of factor V Leiden Labs pending Seen by neurology who recommended aspirin, intolerant of statin now on Zetia Per rehab team Follow-up with neurology after discharge-[facility] Moderate aortic stenosis currently euvolemic asymptomatic monitor History of spinal stenosis. chronic left lower extremity weakness Patient reports chronic bowel dysfunction constipation difficulties as a result of spinal issues. On chronic bowel meds- Dulcolax and MiraLAX Constipation added Senokot at night Suppository -05/28 apparently patient had a large BM-Per RN Last documented BM Continue to follow UTI Urine culture E. coli , sensitives reviewed recommend Ceftin, DC amoxicillin Hypertension Amlodipine 5 mg BP reasonable controlled History of diabetes Resolved after weight loss A1c 5.3 Hyperlipidemia Intolerant of statin currently on Zetia Follow-up with PCP after discharge for ongoing monitoring Hyperammonemia Resolved unclear significance Ultrasound of of liver no evidence of disease Lactulose was discontinued DVT prophylaxis defer to Dr. Calles DAILY CARE CHECKLIST * Samy Esteban LCSW - 06/01/2024 12:41 PM EST Team Meeting: Met with pt at bedside to review post team recommendations. Larry present. Insurance updatedue today. Pt is on track for a tentative discharge home on Thursday06/15/24. Plan is to follow upwith Outpatient PT OT and BULK FLUIDS HANDLER at [facility]. Awaiting schedule. Larry will be providing assistancewith IADLS and transportation to follow up appointments. Family training initiated today, Larry will be providing assist as needed with ADLS. Family training will be ongoing. Pt and Larry had no further questions at this time. * Fanny Boyd, BULK FLUIDS HANDLER - 06/01/2024 12:29 PM EST Speech Language Pathology Speech Language Pathology Treatment Subjective BULK FLUIDS HANDLER Start Time: 1115 BULK FLUIDS HANDLER Stop Time: 1205 BULK FLUIDS HANDLER Time Calculation (min): 50 min Subjective: Pt was alert and sitting upright in wheelchair w/ partner at bedside. Pt was pleasant and cooperative throughout the session. Pt's partner was eager for session. RN reported that pt was coughing w/ water and during med pass. Vitals/Pain Oxygen Therapy Oxygen Therapy: None (Room air) Objective General Visit Info General Family/Caregiver Present: Yes Treatment Swallow Function Swallow/Oral Function Treatment Time Entry: 10 Swallow Activity 1: Pt demonstrated coughing in 1/5 sips of thin liquids, pt was given verbal cues for small sips and demonstrated no coughing w/ small sips. Recommend continue w/ thin liquids w/ cues for small sips. Cognitive Skills Therapeutic Interventions Cognitive Skills Direct Contact Time Entry: 40 Sequencing: Pt was starting to shave upon arrival. Pt required verbal cues from partner to the shaving cream first before shaving. Pt required verbal cues to clear all of the shaving cream at the end. Pt and pt's partner were provided education about use of visualization for sequencing tasks. Other Cognitive Skills Activity: Pt and pt's partner were provided education about role of BULK FLUIDS HANDLER and progess in therapy. Pt and pt's partner w/ this service writer advisor engaged in an extensive conversation about deficits post-stroke and recommendations/strategies. Pt's partner denied that pt has had cognitive tidwell ges post-stroke and was provided extensive education about cognitive-lingustic changes post-stroke.Pt's partner was receptive to education and was provided education about memory recovery. Pt's partner reported that pt has never been organized and was provided education about the importance of helping w/ external memory aids to increase organization and aid w/ recall. Pt denied changes in cognition and was provided 3 words to remember and was unable to recall after 30-second delay. Pt agreeable to memory strategy recommendations and getting assistance for when he goes home. Pt's partner agreeable to help w/ iADLs. Pt's partner was receptive to getting a pillbox for the pt. Pt was initially hesitant to rely on his partner for most tasks and was provided education about safety concerns. At the end of the session, pt verbalized agreement to recommendations but needs reinforcement. Pt's partner reported that pt was involved in many organization and engaged in a conversation about energy conservation post-stroke. Pt was encouraged to stay involved in organizations but decrease leadership roles and take on less responsibilies. Pt reported that he wants to go hunting upon d/c and was provided re-education about safety concerns. Pt's partner reinforced safety concerns and reported that pt will not go hunting upon d/c. Pt's partner was provided education and a handout on the s/s of a stroke and was encouraged to put handout somewhere they can see it in their home. Pt's partner wasreceptive to recommendations and verbalized agreement and was able to teach-back x3 recommendationsat the end of the session. Assessment/Plan BULK FLUIDS HANDLER Assessment BULK FLUIDS HANDLER Assessment Results: Cognitive impairments Evaluation/Treatment Tolerance: Patient tolerated treatment well Plan Treatment/Interventions: Cognitive linguistic functioning BULK FLUIDS HANDLER Plan: Skilled BULK FLUIDS HANDLER BULK FLUIDS HANDLER Frequency: 5-7 days per week BULK FLUIDS HANDLER Duration of Sessions: 30-60 min per session BULK FLUIDS HANDLER Treatments per day: 1 time per day Goals Encounter Problems Encounter Problems (Active) Template: Speech Therapy Problem: BULK FLUIDS HANDLER Master Sonar Technician Goals Dates: Start: 05/24/24 Goal: Pt will improve cognitive linguistic skills to maximize indp for safe d/c back to community. Dates: Start: 05/24/24 Expected End: 06/14/24 Outcomes Date/Time User Outcome 05/28/24 1528 LORNE Bach Progressing Problem: BULK FLUIDS HANDLER Short Term Goals Dates: Start: 05/24/24 Goal: Pt will participate in additional cognitive linguistic assessment. (Resolved) Dates: Start: 05/24/24 Expected End: 05/27/24 Resolved: 06/01/24 Outcomes Date/Time User Outcome 06/01/24 1227 LORNE Bach Completed Goal: Pt will improve immediate and delayed recall of functional information to 80% accuracy given mod A for strategies. Dates: Start: 05/24/24 Expected End: 05/31/24 Outcomes Date/Time User Outcome 05/31/24 0936 LORNE Romero Not Progressing Goal: Pt will participate in basic convergent/divergent categorization tasks at 80% accuracy given mod A. Dates: Start: 05/24/24 Expected End: 05/31/24 Outcomes Date/Time User Outcome 05/28/24 1325 LORNE Bach Progressing Goal: Pt will participate in basic mental flexibility/working memory tasks at 80% accuracy given mod A. Dates: Start: 05/24/24 Expected End: 05/31/24 Outcomes Date/Time User Outcome 05/26/24 1408 LORNE Bach Not Progressing Goal: Pt will complete functional tasks targeting executive functioning skills (planning, organization, mental flexibility) at 80% accuracy given mod A. Dates: Start: 05/25/24 Expected End: 06/01/24 Description: Outcomes Date/Time User Outcome 05/31/24 0936 LORNE Romero Not Progressing Goal: Pt will complete sequencing tasks w/ 90% accuracy given mod A Dates: Start: 05/26/24 Expected End: 06/02/24 Description: Outcomes Date/Time User Outcome 06/01/24 1228 LORNE Bcah Not Progressing Goal: Pt will be able to answer problem-solving/reasoning tasks related to safety and ADLs w/ 90% accuracy given min A Dates: Start: 05/26/24 Expected End: 06/02/24 Description: Outcomes Date/Time User Outcome 06/01/24 1228 LORNE Bach Not Progressing Goal: Pt will be able to identify 2 post-stroke deficits given min A Dates: Start: 05/27/24 Expected End: 06/03/24 Description: Outcomes Date/Time User Outcome 06/01/24 1228 LORNE Bach Not Progressing Encounter Problems (Resolved) There are no resolved problems. Education Documentation Speech/Language, taught by LORNE Bach at 06/01/2024 12:28 PM. Learner: Significant Other, Patient Readiness: Acceptance Method: Explanation, Handout, Teach-back Response: Verbalizes Understanding, Needs Reinforcement Cognition, taught by LORNE Bach at 06/01/2024 12:28 PM. Learner: Significant Other, Patient Readiness: Acceptance Method: Explanation, Handout, Teach-back Response: Verbalizes Understanding, Needs Reinforcement Education Comments No comments found. Cosigned by LORNE Rodriguez at 06/01/2024 9:32 PM EST Associated attestation - Corina Curran SLP - 06/01/2024 9:32 PM EST I attest that I, Coby Curran M.S.,[facility]-BULK FLUIDS HANDLER, was physically involved in the ongoing assessment, decision making, and interventions provided during today's patient care session. I have reviewed all documentation for today's 06/01/24, entered by Speech Therapy Fellow, Fanny Boyd, and further attest that it is an accurate clinical record of today's encounter, including accurate and appropriate charges. * Wisam Garnica RN - 06/01/2024 11:47 AM EST Goals: Clinical Goals for the Shift: Become oriented to unit/floor/staff. To sleep better. Identify possible barriers to meeting goals/advancing plan of care: infection control for UTI. Stability of the patient: Moderately Stable - Low risk of patient condition declining or worsening End of Shift Summary: Pt progressing, will continue to advance as possible with patient. * Theodore Clement OT - 06/01/2024 10:00 AM EST [facility] Occupational Therapy Treatment Note 06/01/24 Patient: Bob Han : 1950 Age: 74 y.o. Gender: male Diagnosis: CVA (cerebral vascular accident) (CMS/HCC) Primary Rehab (Etiologic) Diagnosis: Patient Active Problem List Diagnosis CVA (cerebral vascular accident) (CMS/HCC) PMH: Past Medical History: Diagnosis Date HLD (hyperlipidemia) HTN (hypertension) Migraines Spinal stenosis PSH: History reviewed. No pertinent surgical history. Allergies: is allergic to acetaminophen, atorvastatin, glipizide, and rosuvastatin. Precautions: Precautions Medical Precautions: Fall Risk Safety Interventions: Call [place] within reach, ID band on, Chair alarm RUE Weight Bearing Status: Full LUE Weight Bearing Status: Full RLE Weight Bearing Status: Full LLE Weight Bearing Status: Full Vitals: BP: 134/78 Heart Rate: 69 Pain: Pain Assessment Pain Assessment: No/denies pain Subjective: This arm is cooperating a lot more. Procedures/Interventions: ADLs/IADLs Self Care/Home Management (ADLs) Time Entry: 60 Pt seated in w/c upon arrival, agreeable to participation in planned shower. Vitals assessed see above. Pt's SO Larry present for observation at this time. Pt Dep wheeled to shower stall. SPT from w/c><shower chair with UE support on grab bar with partial A. In stand assist to hike down briefon L and posteriorly. Once seated pt demo'ing ability to assume figure four positioning to doff sock, pt doffed L sock with S, and R sock with hand over hand for incorporation of L UE. Pt able to assume L UE position on grab bar during weight shifting to assist with maintaining sitting balance. Pt completed bathing with overall partial A for bathing buttocks in stand for thoroughness. While seated pt able to use B UE to wash UB, Hand over hand to thoroughly bathe R underarm. Larry appropriately encouraging pt throughout to incorporate L UE. Pt able to assume figure four in order to bathe B feet with cues for thoroughness. Pt shampooed hair mainly with R UE, and able to use L UE minimally. Larry educated on motor apraxia, and various bathroom DME. Encouraged Larry to take photos of bathroom in order to determine most appropriate DME for home. STS partial A from shower chair with B UE on grab bar. In stand pt able to release R UE from bed rail to bathe bottom, assist due to residual bowel. End of shower, once dried off, with larry assisting/cuing intermittently, pt dressed in rocio to return to room. Once back in room Pt attempting to don socks, however Larry provided A to don, following unsuccessful attempt. Pt donned T shirt with overall partial A, with cuing for laurel dressing technique, larry encouraging pt throughout. Dep to apply brief. STS with R UE supported on arm rest partial A, dep to hike brief, bowel incontinence noted, partial A for balance. Pt moved to bed rail. STS at bed rial partial A, Dep for posterior hygiene and to don new brief. Pt able to thread B LEs through shorts with verbal cues for body mechanics andpositioning in order to increase independence. In stand pt able to hike over R hip, assist on L andposteriorly, L knee semi buckling, no LOB. Once seated pt seated in chair, chair alarm on, and callbell in each with SO present. SO with no further questions at this time. SO reporting that he is able to provide required level of assist at this time in order for pt to return home at d/c. RN notified of need to place new allevyn and change mepilex on L elbow. OT Assessment OT Assessment OT Assessment Results: Decreased ADL status, Decreased upper extremity range of motion, Decreased upper extremity strength, Decreased endurance, Decreased fine motor control, Decreased functional mobility, Decreased gross motor control, Decreased IADLs, Non-functional left upper extremity Prognosis: Good Evaluation/Treatment Tolerance: Patient Tolerated treatment well, continuing to progress with self care tasks with much improved movement in L UE increasing use during all self care. Plan for SO to come in next week for further engagement/training. Waiting for photos of bathroom prior to recommending DME. OT Plan Plan Treatment Interventions: ADL retraining, Functional transfer training, UE strengthening/ROM, Endurance training, Patient/family training, Equipment evaluation/education, Neuromuscular reeducation, Fine motor coordination activities, Compensatory technique education OT Plan: Skilled OT OT Frequency : 5-7 days per week OT Duration of Sessions: 60-90 min per session OT Treatments per day: 1-2 times per day OT - Evaluation Status: Complete Equipment Recommended: (TBD prior to d/c) Goals: Encounter Problems Encounter Problems (Active) Template: Occupational Therapy Problem: OT Group Home Goals Dates: Start: 05/24/24 Goal: pt will be IND with lower body dressing AE PRN Dates: Start: 05/24/24 Expected End: 06/14/24 Goal: pt will be IND with upper body dressing Dates: Start: 05/24/24 Expected End: 06/14/24 Goal: pt will be IND with toilet txfer LRAD Dates: Start: 05/24/24 Expected End: 06/14/24 Goal: pt will ne IND with toileting tasks LRAD Dates: Start: 05/24/24 Expected End: 06/14/24 Goal: pt will be IND with footwear tasks AE PRN Dates: Start: 05/24/24 Expected End: 06/14/24 Problem: OT Short Term Goals Dates: Start: 05/24/24 Goal: Pt will be mod assist with upper body dressing (Resolved) Dates: Start: 05/24/24 Expected End: 05/31/24 Resolved: 05/30/24 Outcomes Date/Time User Outcome 05/30/24 08Mely Aleman OT Completed Goal: Pt will me max assist with lower body dressing AE PRN (Resolved) Dates: Start: 05/24/24 Expected End: 05/31/24 Resolved: 05/30/24 Outcomes Date/Time User Outcome 05/30/24 08Mely Aleman OT Completed Goal: Pt will be max assist with footwear AE PRN (Resolved) Dates: Start: 05/24/24 Expected End: 05/31/24 Resolved: 05/30/24 Outcomes Date/Time User Outcome 05/30/24 08Mely Aleman OT Completed Goal: pt will be mod assist toilet txfer LRAD Dates: Start: 05/24/24 Expected End: 05/31/24 Goal: pt will be max assist with toileting tasks Dates: Start: 05/24/24 Expected End: 05/31/24 Encounter Problems (Resolved) There are no resolved problems. Education Documentation Caregiver Support, taught by Theodore Clement OT at 06/01/2024 2:59 PM. Learner: Patient Readiness: Acceptance Method: Explanation, Demonstration Response: Verbalizes Understanding, Needs Reinforcement, Demonstrated Understanding Home Modifications, taught by Theodore Clement OT at 06/01/2024 2:59 PM. Learner: Patient Readiness: Acceptance Method: Explanation, Demonstration Response: Verbalizes Understanding, Needs Reinforcement, Demonstrated Understanding Body Mechanics, taught by Theodore Clement OT at 06/01/2024 2:59 PM. Learner: Patient Readiness: Acceptance Method: Explanation, Demonstration Response: Verbalizes Understanding, Needs Reinforcement, Demonstrated Understanding ADL Training, taught by Theodore Clement OT at 06/01/2024 2:59 PM. Learner: Patient Readiness: Acceptance Method: Explanation, Demonstration Response: Verbalizes Understanding, Needs Reinforcement, Demonstrated Understanding Education Comments No comments found. Incorporating L UE as much as possible into self care, limiting PROM above 90, and laurel dressing. Start/Stop Time OT Time Calculation OT Start Time: 1000 OT Stop Time: 1100 OT Time Calculation (min): 60 min Therapy Minutes: Occupational Therapy OT Individual: 60 * Shakila Hernandez - 06/01/2024 9:00 AM EST Social Work Note Integrated Pail Bailer: DX: Adjustment DO: I continue to follow PT, met with him this morning at bedside to see how he has been feeling. He appears to be doing better and some of his depressive/emotional feelings have subsided. He continues to make progress in his therapy. He is looking forward to going home and gain some of his independence. He is aware of his limitations and he will try to get more rest instead of doing so much as he was before. Will follow and monitor. Shakila Hernandez MS Clinician * ERIC Chisholm - 05/31/2024 4:31 PM EST Images from the original note were not included. SUSU PROGRESS NOTE Date: 05/31/2024 Author: ERIC Chisholm Patient ID: Bob Han is a 74 y.o. male : 1950 MR#: [id number] SUBJECTIVE Subjective Patient reports he is moving his bowels he is voiding. He is participating with therapy as symptomsimproving his appetite is fair ROS Constitutional :no fever chills , appetite fair, sleeping well HEENT: denies headaches Respiratory: denies shortness of breath, coughing or wheezing Cardiac: denies chest pain, palpitations, : No abd pain, no N/V. Genitourinary: see above Musculoskeletal: Arthritic pain to his joints chronic back pain Allergies Acetaminophen, Atorvastatin, Glipizide, and Rosuvastatin Current Medications: amLODIPine, 5 mg, oral, Daily aspirin, 81 mg, oral, Daily cefuroxime, 250 mg, oral, BID AC docusate sodium, 100 mg, oral, BID ezetimibe, 10 mg, oral, Daily nystatin, , Topical, BID polyetheylene glycol, 17 g, oral, Daily senna, 2 tablet, oral, Nightly PRN medications: aluminum-magnesium hydroxide-simethicone, bisacodyL, dextrose 50%, dextrose 50%, dextrose, dextrose, glucagon injection, magnesium hydroxide, melatonin OBJECTIVE Vitals: 05/30/24 1526 05/31/24 0141 05/31/24 0806 05/31/24 1532 BP: 135/83 (!) 140/59 127/63 (!) 149/68 BP Location: Right arm Right arm Right arm Right arm Patient Position: Lying Lying Sitting Sitting Pulse: 77 60 60 58 Resp: 16 22 18 16 Temp: 37 ??C (98.6 ??F) 36.7 ??C (98.1 ??F) 36.3 ??C (97.3 ??F) 36.5 ??C (97.7 ??F) TempSrc: Oral Oral Oral Oral SpO2: 95% 98% 95% 98% PHYSICAL EXAM General: conscious alert no acute distress HEENT: pupils are equal round and reactive. extraocular movements are grossly intact lungs clear to auscultation, no wheezing or crackles noted heart regular rate and rhythm, no murmur or rubs abdomen soft nontender nondistended positive bowel sounds Musculoskeletal: No gross deformity to joints extremities without edema, erythema or calf tenderness neuro: Left upper extremity weakness skin: no rashes or lesions. psych: mood stable appearing, good eye contact. LABS HEMATOLOGY Lab Results Component Value Date WBC 10.6 05/29/2024 HGB 13.1 (L) 05/29/2024 HCT 39.8 (L) 05/29/2024 MCV 88.2 05/29/2024 PLT 293 05/29/2024 CHEMISTRY Lab Results Component Value Date GLUCOSE 96 05/29/2024 NA 131 (L) 05/29/2024 K 4.0 05/29/2024 CO2 27 05/29/2024 CL 99 05/29/2024 BUN 26 (H) 05/29/2024 CREATININE 0.80 05/29/2024 EGFR 93 05/29/2024 CALCIUM 9.0 05/29/2024 ANIONGAP 5 05/29/2024 Imaging: No image results found. ASSESSMENT & PLAN 73 y/o male hx of HTN, diabetes no longer on medication after wt loss who presented to [facility] left-sided weakness Acute ischemic CVA-acute pontine CVA CTA of the head and neck no acute stroke. Echocardiogram EF of 63%, moderate aortic valve stenosis Family history of factor V Leiden Labs pending Seen by neurology who recommended aspirin, intolerant of statin now on Zetia Per rehab team Follow-up with neurology after discharge-[facility] Moderate aortic stenosis currently euvolemic asymptomatic monitor History of spinal stenosis. chronic left lower extremity weakness Patient reports chronic bowel dysfunction constipation difficulties as a result of spinal issues. On chronic bowel meds- Dulcolax and MiraLAX Constipation added Senokot at night Suppository -05/28 apparently patient had a large BM-Per RN Last documented BM Continue to follow UTI Urine culture E. coli recommend Ceftin, DC amoxicillin Hypertension Amlodipine 5 mg BP reasonable controlled History of diabetes Resolved after weight loss A1c 5.3 Hyperlipidemia Intolerant of statin currently on Zetia Follow-up with PCP after discharge for ongoing monitoring Hyperammonemia Resolved unclear significance Ultrasound of of liver no evidence of disease Lactulose was discontinued DVT prophylaxis defer to Dr. Calles DAILY CARE CHECKLIST * Christina Crespo RD - 05/31/2024 3:26 PM EST 05/31/2024 @ 3:26 PM EST Nutrition Initial Assessment Reason for RD Intervention: Assessment Type: Nutrition Trigger Reason for Assessment: LOS Anthropometrics: Weight Method: Actual BMI Class: Obesity Class II IBW (lbs): 142 66.14 - height 198 lb 6.6 oz- current weight Current Diet and Supplements: Dietary Orders (From admission, onward) Start Ordered 05/24/24 1600 Adult diet [facility]; Cardiac, Modified Consistency Options for Liquids and Solids, Diabetic; IDDSI Level 6 Soft & Bite Sized; 60 gm carb/Meal; Sodium 2 gm Restriction Diet effective now Question Answer Comment Location [facility] Diet Type (req) Cardiac Diet Type (req) Modified Consistency Options for Liquids and Solids Diet Type (req) Diabetic Modified Consistency Options for Liquids and Solids IDDSI Level 6 Soft & Bite Sized Diabetic 60 gm carb/Meal Diet Type (cardiac) Sodium 2 gm Restriction 05/24/24 1601 History of presenting illness: Patient is a 74 y.o. male with a history of Past Medical History: Diagnosis Date HLD (hyperlipidemia) HTN (hypertension) Migraines Spinal stenosis History reviewed. No pertinent surgical history. admitted 05/23/2024 with CVA (cerebral vascular accident) ([facility] Food/Nutrition History: Previous Diet / Nutrition Education / Counseling: Pt not in room during time of visit- unable to interview. No noted food allergies. No prior admissions/ RD visits noted in [facility] or [facility]. Nutrition admission screening score is 0 indicating no weight loss/poor appetite prior to admission. Appetite PROFILER HAND: Other (Comment) (Unable to assess) Intake PROFILER HAND: (Unable to assess) Subjective Assessment: Pt seen for length of stay. Pt admitted for acute CVA. BULK FLUIDS HANDLER following- recommending IDDSI 6 soft andbite sized diet. PO intake since admission has been variable per synchro assembler but is improving-consumed 100% of meals yesterday and today. Noted pressure injury to right lateral heel and multiple small slits to left buttock, right groin and coccyx. No wound account consultant noted- will continue to monitor. Nutrition-Related Lab Values: Results from last 7 days Lab Units 05/29/24 0556 SODIUM mmol/L 131* POTASSIUM mmol/L 4.0 CHLORIDE mmol/L 99 CO2 mmol/L 27 BUN mg/dL 26* CREATININE mg/dL 0.80 EGFR mL/min/1.73m2 93 CALCIUM mg/dL 9.0 GLUCOSE mg/dL 96 WBC AUTO K/mcL 10.6 No results found for: LIPASE Medications: amLODIPine, 5 mg, oral, Daily aspirin, 81 mg, oral, Daily cefuroxime, 250 mg, oral, BID AC docusate sodium, 100 mg, oral, BID ezetimibe, 10 mg, oral, Daily nystatin, , Topical, BID polyetheylene glycol, 17 g, oral, Daily senna, 2 tablet, oral, Nightly CONTINUOUS: PRN medications: aluminum-magnesium hydroxide-simethicone, bisacodyL, dextrose 50%, dextrose 50%, dextrose, dextrose, glucagon injection, magnesium hydroxide, melatonin Food/Nutrition-Current Status: Intake Type: P.O. Appetite: Good Intake Amount (%): 75-100% Intake Assessment: Variable Nutrition Focused Physical Findings: Overall Appearance: Unable to assess pt- not in room during time of visit. Skin: Right lateral heel pressure injury, left buttock slit, right groin slit, coccyx slit, left arm abrasion Nutrition Diagnosis: Code Type: None Identified Status: New Diagnosis: Swallowing Difficulty Etiology: Physiologic causes Symptoms: need for IDDSI 6 soft and bite sized diet Nutrition Interventions: - Continue IDDSI 6 soft and bite sized diet per BULK FLUIDS HANDLER recommendations. Continue 2 gm Na restriction given recent CVA. Consider liberalizing carbohydrate restriction given well controlled POCs/BG (pagedprovider) -Monitor adequacy of PO intake; consider offering snacks/supplements if pt consuming <65% of meals on follow up. -Follow weights, labs, I/O. - Follow up regarding nutrition history/ need for nutrition education Goals: Patient will consume greater than or equal to 75% meals., Monitor/control glucose levels, Electrolytes within normal range., Maintain weight., Stooling appropriately., and Maintain skin integrity. Coordination of Patient Care: Discussed with provider(s) via [facility] Secure Chat/Haiku. Monitoring/Evaluation: Fluid/Beverage Intake, Food Intake, Weight, Renal/Electrolyte Profile, Diet Order, GastrointestinalProfile Follow Up: Nutrition Priority Level: Please consult nutrition if needed sooner. RD remains available and will continue to follow. Signature: Christina Crespo RD * Wisam Garnica RN - 05/31/2024 1:38 PM EST Goals: Clinical Goals for the Shift: Become oriented to unit/floor/staff. To sleep better. Identify possible barriers to meeting goals/advancing plan of care: Incontinence, mobility Stability of the patient: Moderately Unstable - Medium risk of patient condition declining or worsening End of Shift Summary: Patient toileted and was continent of bladder will continue to follow progress * Theodore Cleemnt OT - 05/31/2024 12:30 PM EST [facility] Occupational Therapy Treatment Note 05/31/24 Patient: Bob Han : 1950 Age: 74 y.o. Gender: male Diagnosis: CVA (cerebral vascular accident) (CMS/HCC) Primary Rehab (Etiologic) Diagnosis: Patient Active Problem List Diagnosis CVA (cerebral vascular accident) (CMS/HCC) PMH: Past Medical History: Diagnosis Date HLD (hyperlipidemia) HTN (hypertension) Migraines Spinal stenosis PSH: History reviewed. No pertinent surgical history. Allergies: is allergic to acetaminophen, atorvastatin, glipizide, and rosuvastatin. Precautions: Precautions Medical Precautions: Fall Risk Safety Interventions: Call h[place] within reach, ID band on, Chair alarm RUE Weight Bearing Status: Full LUE Weight Bearing Status: Full RLE Weight Bearing Status: Full LLE Weight Bearing Status: Full Pain: Pain Assessment Pain Assessment: No/denies pain Subjective: the stroke only impacted my arm, nothing else. Procedures/Interventions: Therapeutic Activity Therapeutic Activity Time Entry: 30 Pt seated in w/c upon arrival, agreeable to participation. Pt propelled self room room>gym touching A for steering. Pt tasked with B UE coordination task of opening pillow case while this therapist placed pillow inside. Difficulty assuming and maintaining lateral pinch with L hand, requiring hand over hand. SPT from w/c>mat with partial A no AD. Sit>Supine with partial A for L LE. Pt propelled self from gym>room with touching A. Dicussed plan for family training tomorrow at 10 AM with Larry pt agreeable to shower. End of session pt seated in w/c with chair alarm on, and call [place] in reach. Balance/Neuromuscular Re-Education Neuromuscular Re-Education Time Entry: 60 In supine pt engaged in NMRE to L UE to increase strength and functional use. L UE placed into air cast to isolate shoulder during AROM. Pt performed mass reps of shoulder flexion to 90 with touchingA to achieve 90, and tolerated min resistance during shoulder extension back to starting position on mat. Min-mod resistance tolerated for L shoulder horizontal abd/adduction. [place] eliminated shoulder abduction/adduction min resistance, to 90 degrees. Attempting salutes, however improved motor recruitment when elbow positioned at side, moderate resistance tolerated during elbow flexion/extension. Increased time for motor planning throughout NMRE. Supine>Sit EOB touching A for trunk upliftand verbal cues for use of L UE to assist with assuming upright positioning. L UE positioned on pillow. Pt performed mass reps of wrist extension with mod verbal cues and visual demo for assuming target movement. Mass reps of digit flexion/extension. Pt tasked with grasping suction cup items, an pulling them from table with L UE. Verbal cues for accuracy with assuming pre grasp positioning. Pt able to sustain grasp while pulling item from table. Verbal cues for digit extension while releasing item to table. Pt able to perform X mass reps. Pt able to transport item to tall circular target on table top with L UE X2, however difficulty release when utilizing shoulder flexion. Pt encouraged to use L UE throughout day and perform simple movement such as elbow and wrist flexion/extension, and digit flexion/extension. Several exercises demo'ed with small towel to perform in down time as well. Dicussed showing Larry CORONADO during tomorrow training to allow for carryover while Larry visiting. OT Assessment OT Assessment OT Assessment Results: Decreased ADL status, Decreased upper extremity range of motion, Decreased upper extremity strength, Decreased endurance, Decreased fine motor control, Decreased functional mobility, Decreased gross motor control, Decreased IADLs, Non-functional left upper extremity Prognosis: Good Evaluation/Treatment Tolerance: Patient tolerated treatment well. Motor planning barrier to L UE functional use. Pt dmeo'ing improved strength and functional use of L UE following NMRE. Pt required min redirection to tasks during session. Plan for family observation tomorrow at 10 AM. OT Plan Plan Treatment Interventions: ADL retraining, Functional transfer training, UE strengthening/ROM, Endurance training, Patient/family training, Equipment evaluation/education, Neuromuscular reeducation, Fine motor coordination activities, Compensatory technique education OT Plan: Skilled OT OT Frequency : 5-7 days per week OT Duration of Sessions: 60-90 min per session OT Treatments per day: 1-2 times per day OT - Evaluation Status: Complete Equipment Recommended: (TBD prior to d/c) Goals: Encounter Problems Encounter Problems (Active) Template: Occupational Therapy Problem: OT Group Home Goals Dates: Start: 05/24/24 Goal: pt will be IND with lower body dressing AE PRN Dates: Start: 05/24/24 Expected End: 06/14/24 Goal: pt will be IND with upper body dressing Dates: Start: 05/24/24 Expected End: 06/14/24 Goal: pt will be IND with toilet txfer LRAD Dates: Start: 05/24/24 Expected End: 06/14/24 Goal: pt will ne IND with toileting tasks LRAD Dates: Start: 05/24/24 Expected End: 06/14/24 Goal: pt will be IND with footwear tasks AE PRN Dates: Start: 05/24/24 Expected End: 06/14/24 Problem: OT Short Term Goals Dates: Start: 05/24/24 Goal: Pt will be mod assist with upper body dressing (Resolved) Dates: Start: 05/24/24 Expected End: 05/31/24 Resolved: 05/30/24 Outcomes Date/Time User Outcome 05/30/24 Payam Aleman OT Completed Goal: Pt will me max assist with lower body dressing AE PRN (Resolved) Dates: Start: 05/24/24 Expected End: 05/31/24 Resolved: 05/30/24 Outcomes Date/Time User Outcome 05/30/24 08Mely Aleman OT Completed Goal: Pt will be max assist with footwear AE PRN (Resolved) Dates: Start: 05/24/24 Expected End: 05/31/24 Resolved: 05/30/24 Outcomes Date/Time User Outcome 05/30/24 Payam Aleman OT Completed Goal: pt will be mod assist toilet txfer LRAD Dates: Start: 05/24/24 Expected End: 05/31/24 Goal: pt will be max assist with toileting tasks Dates: Start: 05/24/24 Expected End: 05/31/24 Encounter Problems (Resolved) There are no resolved problems. Education Documentation Body Mechanics, taught by Theodore Clement OT at 05/31/2024 2:12 PM. Learner: Patient Readiness: Acceptance Method: Explanation, Demonstration Response: Verbalizes Understanding, Demonstrated Understanding, Needs Reinforcement Home Exercise Program, taught by Theodore Clement OT at 05/31/2024 2:12 PM. Learner: Patient Readiness: Acceptance Method: Explanation, Demonstration Response: Verbalizes Understanding, Demonstrated Understanding, Needs Reinforcement Education Comments No comments found. Start/Stop Time OT Time Calculation OT Start Time: 1230 OT Stop Time: 1400 OT Time Calculation (min): 90 min Therapy Minutes: Occupational Therapy OT Individual: 90 * ERIC Carbone - 05/31/2024 12:23 PM EST Images from the original note were not included. [facility] Daily Progress Note Patient name: Bob Han : 1950 SUBJECTIVE: Patient seen and examined at bedside today. No acute events overnight. Denies headaches, dizziness,shortness of breath, chest pain, nausea, constipation, and pain. Urine culture resulted + ecoli. ATBX tailored to culture . Patient reports his sx for UTI much improved he tells me he is not feeling confused anymore. OBJECTIVE: Vitals: 05/30/24 0749 05/30/24 1526 05/31/24 0141 05/31/24 0806 BP: 134/76 135/83 (!) 140/59 127/63 BP Location: Right arm Right arm Right arm Right arm Patient Position: Sitting Lying Lying Sitting Pulse: 69 77 60 60 Resp: 18 16 22 18 Temp: 36.7 ??C (98.1 ??F) 37 ??C (98.6 ??F) 36.7 ??C (98.1 ??F) 36.3 ??C (97.3 ??F) TempSrc: Oral Oral Oral Oral SpO2: 97% 95% 98% 95% Physical Examination: General: Alert, in no acute cardiopulmonary distress. Mental Status: Oriented to person, place and time. Normal affect. Head: Normocephalic. Eyes: Pupils are equal, round and reactive to light. Extraocular muscles intact. Ear, Nose and Throat: Oropharynx clear, mucous membranes moist. Ears and nose without masses, lesions or deformities. Neck: Supple, Trachea midline. Respiratory: Clear to auscultation and percussion. No wheezing, rales or rhonchi. Cardiovascular: Heart sounds normal. No thrills. Regular rate and rhythm, no murmurs, rubs or gallops. Gastrointestinal: Abdomen soft, non-tender, non-distended. Normal bowel sounds. Genitourinary: No costovertebral angle tenderness. Neurologic: Cranial nerves II-XII intact. Deep tendon reflexes +2 bilaterally. Negative Hoffmans sign bilaterally. Negative clonus bilaterally. + pronation and flexion drift of the left upper extremity with left upper extremity weakness 3+/5. Left lower extremity 5 minus/5, hyperreflexia on the left side with an extensor plantar response.Sensation intact bilaterally. Skin: No rashes or lesions. No petechiae or purpura. No edema. Musculoskeletal: No cyanosis or clubbing. No gross deformities. Normal range of motion to RUE and b/l LE. Limited rom due to weakness on LUE (3/5 strength throughout left upper extremity) CURRENT INPATIENT MEDICATIONS: Current Facility-Administered Medications: aluminum-magnesium hydroxide-simethicone (MAALOX) 200-200-20 mg/5 mL suspension 30 mL, 30 mL, oral,q4h PRN, Wen A Stevan, DO amLODIPine (NORVASC) tablet 5 mg, 5 mg, oral, Daily, Wen A Stevan, DO, 5 mg at 05/31/24 0826 aspirin chewable tablet 81 mg, 81 mg, oral, Daily, Wen A Stevan, DO, 81 mg at 05/31/24 0827 bisacodyL (DULCOLAX) suppository 10 mg, 10 mg, rectal, Daily PRN, Wen A Stevan, DO, 10 mg at05/26/24 1348 cefuroxime (CEFTIN) tablet 250 mg, 250 mg, oral, BID Pretty BERNSTEIN PA dextrose (D50W) 50% injection 12.5 g, 12.5 g, intravenous, q15 min PRN, ERIC Carbone dextrose (D50W) 50% injection 25 g, 25 g, intravenous, q15 min PRN, ERIC Carbone dextrose 15 gram/60 mL oral solution 15 g, 15 g, oral, q15 min PRN, Tahmina Hanna, ERIC dextrose 15 gram/60 mL oral solution 30 g, 30 g, oral, q15 min PRN, ERIC Carbone docusate sodium (COLACE) capsule 100 mg, 100 mg, oral, BID, Wen A Stevan, DO, 100 mg at 05/31/24 0827 ezetimibe (ZETIA) tablet 10 mg, 10 mg, oral, Daily, Wen A Stevan, DO, 10 mg at 05/31/24826 Glucagon HCl (rDNA) injection 1 mg, 1 mg, intramuscular, Once PRN, ERIC Carbone magnesium hydroxide (MILK OF MAGNESIA) 400 mg/5 mL suspension 30 mL, 30 mL, oral, Daily PRN, Wen A Stevan, DO, 30 mL at 05/30/24 1357 melatonin tablet 9 mg, 9 mg, oral, Nightly PRN, Wen A Stevan, DO, 9 mg at 05/30/24 213 nystatin (MYCOSTATIN) 100,000 unit/gram powder, , Topical, BID, Wen A Stevan, DO, Given at 05/31/24826 polyethylene glycol (MIRALAX) packet 17 g, 17 g, oral, Daily, ERIC Chisholm, 17 g at 05/31/24 08 senna (SENOKOT) tablet 17.2 mg, 2 tablet, oral, Nightly, ERIC Chisholm, 17.2 mg at 05/30/24 2134 LABS: Lab Results Component Value Date WBC 10.6 05/29/2024 RBC 4.50 05/29/2024 HGB 13.1 (L) 05/29/2024 HCT 39.8 (L) 05/29/2024 MCV 88.2 05/29/2024 MCHC 32.9 05/29/2024 RDW 12.9 05/29/2024 PLT 293 05/29/2024 MPV 8.9 05/29/2024 NRBC 0.0 05/29/2024 DIFF Lab Results Component Value Date LYMPHOPCT 31.2 05/24/2024 NEUTROABS 3.78 05/24/2024 LYMPHSABS 2.33 05/24/2024 MONOABS 1.08 (H) 05/24/2024 EOSABS 0.15 05/24/2024 BASOSABS 0.08 05/24/2024 IMMGRANABS 0.04 (H) 05/24/2024 RETIC No results found for: RETIC , RETICCTPCT Lab Results Component Value Date NA 131 (L) 05/29/2024 K 4.0 05/29/2024 CL 99 05/29/2024 CO2 27 05/29/2024 GLUCOSE 96 05/29/2024 BUN 26 (H) 05/29/2024 CREATININE 0.80 05/29/2024 CALCIUM 9.0 05/29/2024 PROT 6.5 05/24/2024 ALBUMIN 3.0 (L) 05/24/2024 BILITOT 0.6 05/24/2024 AST 32 05/24/2024 ALT 35 05/24/2024 ALKPHOS 101 05/24/2024 EGFR 93 05/29/2024 IMPRESSION & PLAN: #Impaired mobility and self-care -Secondary to CVA -Continue with PT/OT/speech #Acute ischmic CVA #Left hemiparesis -Aspirin 81 mg daily -Ezetimibe 10 mg daily -continue therapies -f/u Neurology after discharge #Hypertension -Amlodipine 5 mg daily #DMT2 -A1C 5.3 -Diabetic diet -ISS d/c pn 05/27 #Lumbar spinal stenosis -will plan for follow up with [facility] after discharge for further management #Hyperammonemia, resolved -Present at [facility] on 05/17 however resolved #UTI -Amoxicillin 250mg Q8H x10 days (end date: 06/07) d/c on 05/31 Ceftin 250 mg BID x 7 days ( end 06/07) #Bowel management -Colace 100mg BID -Miralax 17gm daily -Senna 2 tabs QHS DVT ppx: Continue Aspirin and ambulation with therapies as tolerated. SCDs to BLE when in bed. Cosigned by Wen Calles DO at 05/31/2024 5:09 PM EST Associated attestation - Wen Calles DO - 05/31/2024 5:09 PM EST Agree with progress note, assessment, and plan as documented by PA today. * Mirlande Aquino, PT - 05/31/2024 10:41 AM EST [facility] Physical Therapy Treatment Note 05/31/2024 Patient: Bob Han : 1950 Age: 74 y.o. Gender: male Primary Language: Argentine Diagnosis: CVA (cerebral vascular accident) (CMS/HCC) Past Medical History: Diagnosis Date HLD (hyperlipidemia) HTN (hypertension) Migraines Spinal stenosis History reviewed. No pertinent surgical history. Allergies: is allergic to acetaminophen, atorvastatin, glipizide, and rosuvastatin. Precautions: Medical Precautions: Fall Risk Safety Interventions: Call [place] within reach, ID band on, Chair alarm RUE Weight Bearing Status: Full LUE Weight Bearing Status: Full RLE Weight Bearing Status: Full LLE Weight Bearing Status: Full SUBJECTIVE Pt report: I'm trying OBJECTIVE General Observation: Seated in WC agreeable to participating in PT session. Procedure/Treatment: Neuromuscular Reeducation: Balance/Neuromuscular Re-Education Neuromuscular Re-Education Time Entry: 90 Pt seated in WC agreeable to participating in therapy session, pt needing mod cues for donning shirt. Pt dep brought down to therapy gym in WC. Pt completed x8 stairs, partial A x1, R ascending railing, pt taking seated rest break, pt completed x4 stairs with RUE on L ascending railing, step to pattern, partial A x1, pt then completed x4 stairs R ascending rail and RUE support, partial A x1, mod cues for sequencing, pt attempting to ascend with LLE, cues for step to pattern leading with RLE. Ptcompleted STS partial-A to laurel-walker. PT completed 3x5ft of ambulation max cues for step to pattern with laurel-walker, pt having difficulty turning to sit in chair, and difficulty with stepping backwards. Therapist providing education to have WC upstairs and second WC or transport chair down stairs, pt receptive to recommendation. Pt trialing STS to laurel- walker, pt reporting increased fatigue. Pt taking seated rest break, pt then completed partial A stand pivot transfer from chair to WC. Pt dep. Brought to room. Pt left seated in WC, call [place] in reach, chair alarm on, all needs met, arm tray in place. Education: Education Documentation Mobility Training, taught by Mirlande Aquino, PT at 05/31/2024 11:09 AM. Learner: Patient Readiness: Acceptance Method: Explanation Response: Verbalizes Understanding, Demonstrated Understanding Comment: d/c planning, balance, ambulation Education Comments No comments found. ASSESSMENT Pt improving sequencing with mass rep practice for ambulation with use of laurel- walker. Pt able to recite back verbal sequence for use of laurel-walker. PT Assessment PT Assessment Results: Decreased strength, Decreased range of motion, Decreased endurance, Impairedbalance, Impaired gait Prognosis: Good Equipment: TBD Plan of Care Plan Treatment/Interventions: Functional transfer training, LE strengthening/ROM, Endurance training, Cognitive reorientation, Bed mobility, Gait training, Balance training, Continued evaluation, Compensatory technique education PT Plan: Skilled PT PT Frequency: 5-7 days per week PT Duration of Sessions: 60-90 min per session PT Treatments per day: 1 time per day PT Discharge Recommendations: Other (Comment) (TBD) Problems/Goals Goals: Encounter Problems Encounter Problems (Active) Template: Physical Therapy 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 railing Dates: Start: 05/24/24 Outcomes Date/Time User Outcome 05/27/24 153Jarvis Aquino PT Progressing Goal: mod-I bed mobility Dates: Start: 05/24/24 Outcomes Date/Time User Outcome 05/27/24 1534 Mirlande Aquino PT Progressing Goal: mod-I transfers Dates: Start: 05/24/24 Outcomes Date/Time User Outcome 05/27/24 Aldo Aquino PT Progressing Problem: PT Short Term Goals Dates: Start: 05/24/24 Goal: SUP bed mobility Dates: Start: 05/24/24 Outcomes Date/Time User Outcome 05/27/24 153Jarvis Aquino PT Progressing Goal: partial A transfers LRAD Dates: Start: 05/24/24 Outcomes Date/Time User Outcome 05/27/24 1534 Mirlande Aquino PT Progressing Goal: partial A x50ft LRAD ambulation Dates: Start: 05/24/24 Outcomes Date/Time User Outcome 05/27/24 1534 Mirlande Aquino PT Progressing Goal: partial A x4 stairs Dates: Start: 05/24/24 Outcomes Date/Time User Outcome 05/27/24 1534 Mirlande Aquino PT Progressing Encounter Problems (Resolved) There are no resolved problems. Session Start/Stop Time: 1000 1130 Therapy Minutes Physical Therapy PT Individual: 90 * Jana Jimenez, BULK FLUIDS HANDLER - 05/31/2024 8:30 AM EST Speech Language Pathology Speech Language Pathology Treatment Subjective BULK FLUIDS HANDLER Start Time: 829 BULK FLUIDS HANDLER Stop Time: 929 BULK FLUIDS HANDLER Time Calculation (min): 60 min Subjective: Agreeable to ST. Vitals/Pain Pt did not report pain. Objective General Visit Info General Family/Caregiver Present: No Treatment Cognitive Skills Therapeutic Interventions Cognitive Skills Direct Contact Time Entry: 60 Organization: Planning/organization tasks: 15 steps to brush teeth: mod verbal cues required. Pt tasked with organizing 6 tasks into schedule given time limit and time for each task: mod to maxA required. Required frequent redirections, Pt often stating routine at home. Discussed Pt's typical routine for the day and what he plans the night before: Pt stating there will be changes to his routine after stroke, unable to identify specifics. Discussed how physical limitations and cognitive limitations will impact. Recommended Pt create a daily schedule every morning to compensate for memory and organization deficits. Memory: Pt tasked with encoding therapy schedule for today: set up for writing strategy, min A for repetition/rehearsal. Immediate recall: 5/8 components recalled indp, increasing accuracy with mod verbal cues. After ~5 min delay: 4/8 components recalled given min verbal cues. Other Cognitive Skills Activity: With this service writer advisor, discussed memory strategies to use for functional task (walking trails): Pt receptive to using visualization strategy and idenitfying landmarks. Discussed changes post stroke related to hunting, Pt expressing interest in returning to hunting after d/c. Pt generated 3 changes given mod verbal cues: reduced UE stregnth, impaired general awareness and slow processing/confusion. Assessment/Plan BULK FLUIDS HANDLER Assessment Evaluation/Treatment Tolerance: Patient tolerated treatment well Plan Treatment/Interventions: Cognitive linguistic functioning BULK FLUIDS HANDLER Plan: Skilled BULK FLUIDS HANDLER BULK FLUIDS HANDLER Frequency: 5-7 days per week BULK FLUIDS HANDLER Duration of Sessions: 30-60 min per session BULK FLUIDS HANDLER Treatments per day: 1 time per day BULK FLUIDS HANDLER Discharge Recommendations: Home BULK FLUIDS HANDLER BULK FLUIDS HANDLER - Next Appointment: 06/01/24 Goals Encounter Problems Encounter Problems (Active) Template: Speech Therapy Problem: BULK FLUIDS HANDLER Group Home Goals Dates: Start: 05/24/24 Goal: Pt will improve cognitive linguistic skills to maximize indp for safe d/c back to community. Dates: Start: 05/24/24 Expected End: 06/14/24 Outcomes Date/Time User Outcome 05/28/24 152LORNE Eugene Progressing Problem: BULK FLUIDS HANDLER Short Term Goals Dates: Start: 05/24/24 Goal: Pt will participate in additional cognitive linguistic assessment. Dates: Start: 05/24/24 Expected End: 05/27/24 Outcomes Date/Time User Outcome 05/26/24 140LORNE Perez Progressing Goal: Pt will improve immediate and delayed recall of functional information to 80% accuracy given mod A for strategies. Dates: Start: 05/24/24 Expected End: 05/31/24 Outcomes Date/Time User Outcome 05/31/24 09LORNE Ray Not Progressing Goal: Pt will participate in basic convergent/divergent categorization tasks at 80% accuracy given mod A. Dates: Start: 05/24/24 Expected End: 05/31/24 Outcomes Date/Time User Outcome 05/28/24 132LORNE Perez Progressing Goal: Pt will participate in basic mental flexibility/working memory tasks at 80% accuracy given mod A. Dates: Start: 05/24/24 Expected End: 05/31/24 Outcomes Date/Time User Outcome 05/26/24 140LORNE Eugene Not Progressing Goal: Pt will complete functional tasks targeting executive functioning skills (planning, organization, mental flexibility) at 80% accuracy given mod A. Dates: Start: 05/25/24 Expected End: 06/01/24 Description: Outcomes Date/Time User Outcome 05/31/24 09LORNE Ray Not Progressing Goal: Pt will complete sequencing tasks w/ 90% accuracy given mod A Dates: Start: 05/26/24 Expected End: 06/02/24 Description: Outcomes Date/Time User Outcome 05/28/24 152LORNE Eugene Not Progressing Goal: Pt will be able to answer problem-solving/reasoning tasks related to safety and ADLs w/ 90% accuracy given min A Dates: Start: 05/26/24 Expected End: 06/02/24 Description: Outcomes Date/Time User Outcome 05/28/24 1325 LORNE Bach Progressing Goal: Pt will be able to identify 2 post-stroke deficits given min A Dates: Start: 05/27/24 Expected End: 06/03/24 Description: Outcomes Date/Time User Outcome 05/31/24 0936 LORNE Romero Not Progressing Encounter Problems (Resolved) There are no resolved problems. Education Documentation Cognition, taught by LORNE Romero at 05/31/2024 8:30 AM. Learner: Patient Readiness: Acceptance Method: Explanation, Demonstration Response: Verbalizes Understanding, Needs Reinforcement Education Comments No comments found. Cosigned by LORNE Rodriguez at 05/31/2024 9:46 PM EST Associated attestation - Corina Curran SLP - 05/31/2024 9:46 PM EST I attest that I, Coby Curran M.S.,[facility]-BULK FLUIDS HANDLER, was physically involved in the ongoing assessment, decision making, and interventions provided during today's patient care session. I have reviewed all documentation for today's 05/31/24, entered by Speech Therapy Fellow, Jana Cesar, and further attest that it is an accurate clinical record of today's encounter, including accurate and appropriatecharges. * Carmenza Lazo RN - 05/31/2024 2:55 AM EST Problem: Cognitive: Womack Michael Fall Risk Goal: Last Known Fall Outcome: Progressing Goal: Mobility requiring assistance of person or device Outcome: Progressing Goal: Dizziness Outcome: Progressing Goal: Medications Outcome: Progressing Goal: Mental Status/LOC/Awareness Outcome: Progressing Goal: Toileting Needs Outcome: Progressing Goal: Volume and Electrolyte Status Outcome: Progressing Goal: Communication/Sensory Outcome: Progressing Goal: Behavior Outcome: Progressing Problem: Skin Integrity: Pressure Injury Actual or Risk of Goal: Will not develop new pressure injury Outcome: Progressing Goal: Skin integrity will improve Outcome: Progressing Goal: Risk for impaired skin integrity will decrease Outcome: Progressing Problem: Activity:Pressure Injury Actual or Risk of Goal: Mobility will improve Outcome: Progressing Problem: Nutritional:Pressure Injury Actual or Risk of Goal: Nutritional status will improve Outcome: Progressing Problem: Patient Specific Problem: Pressure Injury Actual or Risk of Goal: Patient Specific Outcome Outcome: Progressing Goals: Clinical Goals for the Shift: Become oriented to unit/floor/staff. To sleep better. Identify possible barriers to meeting goals/advancing plan of care: Pt has episodes of confusion but easily reoriented. Stability of the patient: Moderately Unstable - Medium risk of patient condition declining or worsening End of Shift Summary: Pt calm and cooperative overnight. Incontinent of urine. Pt checked frequently for incontinence and cleaned and changed as needed. Heel protectors, PUPP boots and sequentials intact throughout the shift. Hourly and prn safety checks maintained. Call [place] in reach. Pt encouraged to use the call [place] for assist with any needs. * Wen Calles DO - 05/30/2024 6:20 PM EST Images from the original note were not included. [facility] Daily Progress Note Patient name: Bob Han : 1950 SUBJECTIVE: Patient seen and examined at bedside today. No acute events overnight. Denies headaches, dizziness,shortness of breath, chest pain, nausea, constipation, and pain. Reports continued left sided weakness and once again becomes tearful when discussing his history of lumbar spinal stenosis. Participating in therapies: amb 10-12' multiple trials to chair on right side, cues for stepping back with LLE and reaching back with RUE OBJECTIVE: Vitals: 05/30/24 0545 05/30/24 0700 05/30/24 0749 05/30/24 1526 BP: 129/55 133/65 134/76 135/83 BP Location: Right arm Right arm Right arm Right arm Patient Position: Lying Lying Sitting Lying Pulse: 58 57 69 77 Resp: 18 16 Temp: 36.9 ??C (98.4 ??F) 36.7 ??C (98.1 ??F) 37 ??C (98.6 ??F) TempSrc: Oral Oral Oral SpO2: 95% 95% 97% 95% Physical Examination: General: Alert, in no acute cardiopulmonary distress. Mental Status: Oriented to person, place and time. Normal affect. Head: Normocephalic. Eyes: Pupils are equal, round and reactive to light. Extraocular muscles intact. Ear, Nose and Throat: Oropharynx clear, mucous membranes moist. Ears and nose without masses, lesions or deformities. Neck: Supple, Trachea midline. Respiratory: Clear to auscultation and percussion. No wheezing, rales or rhonchi. Cardiovascular: Heart sounds normal. No thrills. Regular rate and rhythm, no murmurs, rubs or gallops. Gastrointestinal: Abdomen soft, non-tender, non-distended. Normal bowel sounds. Genitourinary: No costovertebral angle tenderness. Neurologic: Cranial nerves II-XII intact. Deep tendon reflexes +2 bilaterally. Negative Hoffmans sign bilaterally. Negative clonus bilaterally. + pronation and flexion drift of the left upper extremity with left upper extremity weakness 3+/5. Left lower extremity 5 minus/5, hyperreflexia on the left side with an extensor plantar response.Sensation intact bilaterally. Skin: No rashes or lesions. No petechiae or purpura. No edema. Musculoskeletal: No cyanosis or clubbing. No gross deformities. Normal range of motion to RUE and b/l LE. Limited rom due to weakness on LUE (3/5 strength throughout left upper extremity) CURRENT INPATIENT MEDICATIONS: Current Facility-Administered Medications: aluminum-magnesium hydroxide-simethicone (MAALOX) 200-200-20 mg/5 mL suspension 30 mL, 30 mL, oral,q4h PRN, Wen Calles DO amLODIPine (NORVASC) tablet 5 mg, 5 mg, oral, Daily, Wen Calles DO, 5 mg at 05/30/24 0821 amoxicillin (AMOXIL) capsule 250 mg, 250 mg, oral, q8h [facility], 250 mg at05/30/24 1357 aspirin chewable tablet 81 mg, 81 mg, oral, Daily, Wen A Stevan, DO, 81 mg at 05/30/24 0821 bisacodyL (DULCOLAX) suppository 10 mg, 10 mg, rectal, Daily PRN, Wen A Stevan, DO, 10 mg at05/26/24 1348 dextrose (D50W) 50% injection 12.5 g, 12.5 g, intravenous, q15 min PRN, ERIC Carbone dextrose (D50W) 50% injection 25 g, 25 g, intravenous, q15 min PRN, ERIC Carbone dextrose 15 gram/60 mL oral solution 15 g, 15 g, oral, q15 min PRN, ERIC Carbone dextrose 15 gram/60 mL oral solution 30 g, 30 g, oral, q15 min PRN, ERIC Carbone docusate sodium (COLACE) capsule 100 mg, 100 mg, oral, BID, Wen A Stevan, DO, 100 mg at 05/30/2421 ezetimibe (ZETIA) tablet 10 mg, 10 mg, oral, Daily, Wen A Stevan, DO, 10 mg at 05/30/24820 Glucagon HCl (rDNA) injection 1 mg, 1 mg, intramuscular, Once PRN, ERIC Carbone magnesium hydroxide (MILK OF MAGNESIA) 400 mg/5 mL suspension 30 mL, 30 mL, oral, Daily PRN, Wen A Stevan, DO, 30 mL at 05/30/24 1357 melatonin tablet 9 mg, 9 mg, oral, Nightly PRN, Wen A Stevan, DO, 9 mg at 05/29/242009 nystatin (MYCOSTATIN) 100,000 unit/gram powder, , Topical, BID, Wen A Stevan, DO, Given at 05/30/24821 polyethylene glycol (MIRALAX) packet 17 g, 17 g, oral, Daily, ERIC Chisholm, 17 g at 05/30/24820 senna (SENOKOT) tablet 17.2 mg, 2 tablet, oral, Nightly, ERIC Chisholm, 17.2 mg at 05/29/242009 LABS: Lab Results Component Value Date WBC 10.6 05/29/2024 RBC 4.50 05/29/2024 HGB 13.1 (L) 05/29/2024 HCT 39.8 (L) 05/29/2024 MCV 88.2 05/29/2024 MCHC 32.9 05/29/2024 RDW 12.9 05/29/2024 PLT 293 05/29/2024 MPV 8.9 05/29/2024 NRBC 0.0 05/29/2024 DIFF Lab Results Component Value Date LYMPHOPCT 31.2 05/24/2024 NEUTROABS 3.78 05/24/2024 LYMPHSABS 2.33 05/24/2024 MONOABS 1.08 (H) 05/24/2024 EOSABS 0.15 05/24/2024 BASOSABS 0.08 05/24/2024 IMMGRANABS 0.04 (H) 05/24/2024 RETIC No results found for: RETIC , RETICCTPCT Lab Results Component Value Date NA 131 (L) 05/29/2024 K 4.0 05/29/2024 CL 99 05/29/2024 CO2 27 05/29/2024 GLUCOSE 96 05/29/2024 BUN 26 (H) 05/29/2024 CREATININE 0.80 05/29/2024 CALCIUM 9.0 05/29/2024 PROT 6.5 05/24/2024 ALBUMIN 3.0 (L) 05/24/2024 BILITOT 0.6 05/24/2024 AST 32 05/24/2024 ALT 35 05/24/2024 ALKPHOS 101 05/24/2024 EGFR 93 05/29/2024 IMPRESSION & PLAN: #Impaired mobility and self-care -Secondary to CVA -Continue with PT/OT/speech #Acute ischmic CVA #Left hemiparesis -Aspirin 81 mg daily -Ezetimibe 10 mg daily -continue therapies -f/u Neurology after discharge #Hypertension -Amlodipine 5 mg daily #DMT2 -A1C 5.3 -Diabetic diet -ISS #Lumbar spinal stenosis -will plan for follow up with [facility] after discharge for further management #Hyperammonemia, resolved -Present at [facility] on 05/17 however resolved #UTI -Amoxicillin 250mg Q8H x10 days (end date: 06/07) #Bowel management -Colace 100mg BID -Miralax 17gm daily -Senna 2 tabs QHS DVT ppx: Continue Aspirin and ambulation with therapies as tolerated. SCDs to BLE when in bed. * Harini Mejia PTA - 05/30/2024 12:04 PM EST [facility] Physical Therapy Treatment Note 05/30/2024 Patient: Bob Han : 1950 Age: 74 y.o. Gender: male Primary Language: Argentine Diagnosis: CVA (cerebral vascular accident) (CMS/HCC) Past Medical History: Diagnosis Date HLD (hyperlipidemia) HTN (hypertension) Migraines Spinal stenosis History reviewed. No pertinent surgical history. Allergies: is allergic to acetaminophen, atorvastatin, glipizide, and rosuvastatin. Precautions: Medical Precautions: Fall Risk Safety Interventions: Call [place] within reach, ID band on, Chair alarm RUE Weight Bearing Status: Full LUE Weight Bearing Status: Full RLE Weight Bearing Status: Full LLE Weight Bearing Status: Full SUBJECTIVE Pt report: I was having problems walking before this Procedure/Treatment: Therapeutic Activities: Therapeutic Activity Time Entry: 90 Therapeutic Activity 1: pt in w/c at beginning of session. w/c mob with BLE, RUE room to/from gym partial assist for steering and cues for left attention. w/c sit to stand at hemibar steadying cues for hand placement amb trials at hemibar forward/backward length of bars cues for left knee control and increased LLE clearance/steplength with backward step, cues for posture and looking forward. amb trials with LBQC partial assist and cues for sequencing, increased left knee control, slower pace ofamb 10-12' multiple trials to chair on right side, cues for stepping back with LLE and reaching back with RUE. Education: Education Documentation Body Mechanics, taught by Harini Mejia PTA at 05/30/2024 12:04 PM. Learner: Patient Readiness: Acceptance Method: Explanation, Demonstration Response: Verbalizes Understanding, Demonstrated Understanding, Needs Reinforcement Home Exercise Program, taught by Harini Mejia PTA at 05/30/2024 12:04 PM. Learner: Patient Readiness: Acceptance Method: Explanation, Demonstration Response: Verbalizes Understanding, Demonstrated Understanding, Needs Reinforcement Mobility Training, taught by Harini Mejia PTA at 05/30/2024 12:04 PM. Learner: Patient Readiness: Acceptance Method: Explanation, Demonstration Response: Verbalizes Understanding, Demonstrated Understanding, Needs Reinforcement Education Comments No comments found. ASSESSMENT PT Assessment PT Assessment Results: Decreased strength, Decreased range of motion, Decreased endurance, Impairedbalance, Impaired gait Plan of Care Plan Treatment/Interventions: Functional transfer training, LE strengthening/ROM, Endurance training, Cognitive reorientation, Bed mobility, Gait training, Balance training, Continued evaluation, Compensatory technique education PT Plan: Skilled PT PT Frequency: 5-7 days per week PT Duration of Sessions: 60-90 min per session PT Treatments per day: 1 time per day PT Discharge Recommendations: Other (Comment) (TBD) Problems/Goals Goals: Encounter Problems Encounter Problems (Active) Template: Physical Therapy Problem: PT Group Home Goals Dates: Start: 05/24/24 Goal: mod-I ambulation x150ft Dates: Start: 05/24/24 Outcomes Date/Time User Outcome 05/27/24 1534 Mirlande Aquino PT Progressing Goal: mod-I x12 stairs unilat. railing Dates: Start: 05/24/24 Outcomes Date/Time User Outcome 05/27/24 1534 Mirlande Aquino PT Progressing Goal: mod-I bed mobility Dates: Start: 05/24/24 Outcomes Date/Time User Outcome 05/27/24 1534 Mirlande Aquino PT Progressing Goal: mod-I transfers Dates: Start: 05/24/24 Outcomes Date/Time User Outcome 05/27/24 1534 Mirlande Aquino PT Progressing Problem: PT Short Term Goals Dates: Start: 05/24/24 Goal: SUP bed mobility Dates: Start: 05/24/24 Outcomes Date/Time User Outcome 05/27/24 [id number] Aquino PT Progressing Goal: partial A transfers LRAD Dates: Start: 05/24/24 Outcomes Date/Time User Outcome 05/27/24 1534 Mirlande Aquino PT Progressing Goal: partial A x50ft LRAD ambulation Dates: Start: 05/24/24 Outcomes Date/Time User Outcome 05/27/24 1534 Mirlande Aquino PT Progressing Goal: partial A x4 stairs Dates: Start: 05/24/24 Outcomes Date/Time User Outcome 05/27/24 1534 Mirlande Aquino PT Progressing Encounter Problems (Resolved) There are no resolved problems. Session Start/Stop Time: 1000 1130 Therapy Minutes Physical Therapy PT Individual: 90 * Malena Soto NP - 05/30/2024 10:23 AM EST Images from the original note were not included. SUSU PROGRESS NOTE Date: 05/30/2024 Author: Malena Soto NP Patient ID: Bob Han is a 74 y.o. male : 1950 MR#: [id number] SUBJECTIVE Subjective Frequency symptoms improved Patient is moving his bowels denies constipation sxs last documented BM 05/26 Denies any fever chills abdominal pain n/vt Sleeping well Has had incontinence of urine ROS Constitutional :no fever chills , appetite fair, sleeping well HEENT: denies headaches Respiratory: denies shortness of breath, coughing or wheezing Cardiac: denies chest pain, palpitations, : No abd pain, no N/V. Genitourinary: see above Musculoskeletal: Arthritic pain to his joints chronic back pain Allergies Acetaminophen, Atorvastatin, Glipizide, and Rosuvastatin Current Medications: amLODIPine, 5 mg, oral, Daily amoxicillin, 250 mg, oral, q8h HUNTER aspirin, 81 mg, oral, Daily docusate sodium, 100 mg, oral, BID ezetimibe, 10 mg, oral, Daily nystatin, , Topical, BID polyetheylene glycol, 17 g, oral, Daily senna, 2 tablet, oral, Nightly PRN medications: aluminum-magnesium hydroxide-simethicone, bisacodyL, dextrose 50%, dextrose 50%, dextrose, dextrose, glucagon injection, magnesium hydroxide, melatonin OBJECTIVE Vitals: 05/29/24 1634 05/30/24 0545 05/30/24 0700 05/30/24 0749 BP: 134/68 129/55 133/65 134/76 BP Location: Right arm Right arm Right arm Patient Position: Lying Lying Sitting Pulse: 70 58 57 69 Resp: 18 18 Temp: 36.5 ??C (97.7 ??F) 36.9 ??C (98.4 ??F) 36.7 ??C (98.1 ??F) TempSrc: Oral Oral SpO2: 97% 95% 95% 97% PHYSICAL EXAM General-NAD, cognitively- intact , AAO- ??3 , appears stated age, appears comfortable Heart-RRR, normal S1, S2, no clicks, heaves, murmurs, splits, gallops, rubs Lungs-CTA B no adventitious breath sounds. Abdomen-S NT BS ??4, no distention Extremities-M AE, no CCE, cap refill brisk, DPP Neuromuscular-focally unchanged left hemiparesis particularly of the arm,dysarthria walking with walker to BR Integumentary- turgor good, skin warm dry intact, no rashes LABS HEMATOLOGY Lab Results Component Value Date WBC 10.6 05/29/2024 HGB 13.1 (L) 05/29/2024 HCT 39.8 (L) 05/29/2024 MCV 88.2 05/29/2024 PLT 293 05/29/2024 CHEMISTRY Lab Results Component Value Date GLUCOSE 96 05/29/2024 NA 131 (L) 05/29/2024 K 4.0 05/29/2024 CO2 27 05/29/2024 CL 99 05/29/2024 BUN 26 (H) 05/29/2024 CREATININE 0.80 05/29/2024 EGFR 93 05/29/2024 CALCIUM 9.0 05/29/2024 ANIONGAP 5 05/29/2024 Imaging: No image results found. ASSESSMENT & PLAN 73 y/o male hx of HTN, diabetes no longer on medication after wt loss who presented to [facility] left-sided weakness Acute ischemic CVA-acute pontine CVA CTA of the head and neck no acute stroke. Echocardiogram EF of 63%, moderate aortic valve stenosis Family history of factor V Leiden Labs pending Seen by neurology who recommended aspirin, intolerant of statin now on Zetia Per rehab team Follow-up with neurology after discharge-[facility] Moderate aortic stenosis currently euvolemic asymptomatic monitor History of spinal stenosis. chronic left lower extremity weakness Patient reports chronic bowel dysfunction constipation difficulties as a result of spinal issues. On chronic bowel meds- Dulcolax and MiraLAX Constipation added Senokot at night Suppository -05/28 apparently patient had a large BM-Per RN Last documented BM Continue to follow Urinary frequency urgency incontinence Bladder scans Check UA/CS--trace ketones moderate blood positive nitrates small leukocyte 27 white cells 3 RBCs 6squamous epithelials many bacteria UTI -culture greater than 100,000 E. coli Monitor renal function patient's on the drum drier side Amoxil 150 mg 3 times daily treat for 10 days due to complexity male/hospitalized-sensitive E. Coli UTI See above Hypertension Amlodipine 5 mg BP reasonable controlled History of diabetes Resolved after weight loss A1c 5.3 Hyperlipidemia Intolerant of statin currently on Zetia Follow-up with PCP after discharge for ongoing monitoring Hyperammonemia Resolved unclear significance Ultrasound of of liver no evidence of disease Lactulose was discontinued DVT prophylaxis defer to Dr. Calles DAILY CARE CHECKLIST Cosigned by Bhupinder Jara MD at 05/31/2024 11:01 AM EST * Coby Aleman OT - 05/30/2024 7:00 AM EST [facility] Occupational Therapy Treatment Note 05/30/24 Patient: Bob Han : 1950 Age: 74 y.o. Gender: male Diagnosis: CVA (cerebral vascular accident) (CMS/HCC) Primary Rehab (Etiologic) Diagnosis: Patient Active Problem List Diagnosis CVA (cerebral vascular accident) (CMS/HCC) PMH: Past Medical History: Diagnosis Date HLD (hyperlipidemia) HTN (hypertension) Migraines Spinal stenosis PSH: History reviewed. No pertinent surgical history. Allergies: is allergic to acetaminophen, atorvastatin, glipizide, and rosuvastatin. Precautions: Precautions Medical Precautions: Fall Risk Safety Interventions: Call [place] within reach, ID band on, Chair alarm RUE Weight Bearing Status: Full LUE Weight Bearing Status: Full RLE Weight Bearing Status: Full LLE Weight Bearing Status: Full Vitals: BP: 133/65 Heart Rate: 57 SpO2: 95 % Pain: Pain Assessment Pain Assessment: No/denies pain Pain Score: 0 - No pain Subjective: I'm ready to go home Procedures/Interventions: Eating Eating Level of Assistance: Setup or clean-up assistance Eating Where Assessed: Wheelchair Grooming Grooming Level of Assistance: Supervision or touching assistance Grooming Where Assessed: Wheelchair Oral Hygiene Oral Hygiene Level of Assistance: Supervision or touching assistance Oral Hygiene Where Assessed: Wheelchair UE Bathing UE Bathing Level of Assistance: Partial/moderate assistance (Assistance with cleansing R UE. Pt able to complete all other tasks with increase time d/t slow motor movement in L UE. Verbal cues provided t/o for redirection to task and for technique in order to increase overall function/IND) UE Bathing Where Assessed: Edge of bed LE Bathing LE Bathing Level of Assistance: Partial/moderate assistance (pt able to cleanse perineal area with R UE and proximal izzy LEs. Pt required assistance with buttocks and distal izzy LEs) LE Bathing Where Assessed: Bed level UE Dressing UE Dressing Level of Assistance: Partial/moderate assistance (Pt able to thead R UE into shirt, thread partial of L UE into shirt with verbal cues for technique, slightly pulling head through neckline of shirt, and partiall hiking down shirt over trunk on R side. Overall, OT assisting with 50% of task.) UE Dressing Where Assessed: Edge of bed LE Dressing LE Dressing: Yes Pants Level of Assistance: Substantial/maximal assistance (pt able to hike pants from izzy knees to hips with verbal cues for technique. Pt required assistance with all other tasks.) Sock Level of Assistance: Substantial/maximal assistance (pt able to lift R LE in order for OT to don bridge attacher socks. Pt able to adjust sock on R foot from seated position. OT assisted with rest of footwear tasks) LE Dressing Where Assessed: Edge of bed ADLs/IADLs Self Care/Home Management (ADLs) Time Entry: 90 ADL/ IADL Performed: Eating, Grooming, Oral Hygiene, Dressing, Bathing 05/30/24 0700 OT Last Visit OT Received On 05/30/24 General Family/Caregiver Present No OT Time Calculation OT Start Time 0700 OT Stop Time 0830 OT Time Calculation (min) 90 min Occupational Therapy OT Individual 90 Precautions Medical Precautions Fall Risk Safety Interventions Call [place] within reach;ID band on;Chair alarm RUE Weight Bearing Status Full LUE Weight Bearing Status Full RLE Weight Bearing Status Full LLE Weight Bearing Status Full Vital Signs Patient Identification Yes Heart Rate 57 BP 133/65 MAP (Calculated) 88 mm Hg BP Location Right arm Patient Position Lying SpO2 95 % Oxygen Therapy Patient Activity At rest Oxygen Therapy None (Room air) Pain Assessment Pain Assessment No/denies pain Pain Score 0 - No pain ADLs/IADLs Self Care/Home Management (ADLs) Time Entry 90 ADL/ IADL Performed Eating;Grooming;Oral Hygiene;Dressing;Bathing Eating Eating Level of Assistance Setup or clean-up assistance Eating Where Assessed Wheelchair Grooming Grooming Level of Assistance Supervision or touching assistance Grooming Where Assessed Wheelchair Oral Hygiene Oral Hygiene Level of Assistance Supervision or touching assistance Oral Hygiene Where Assessed Wheelchair UE Bathing UE Bathing Level of Assistance Partial/moderate assistance (Assistance with cleansing R UE. Pt able to complete all other tasks with increase time d/t slow motor movement in L UE. Verbal cues provided t/o for redirection to task and for technique in order toincrease overall function/IND) UE Bathing Where Assessed Edge of bed LE Bathing LE Bathing Level of Assistance Partial/moderate assistance (pt able to cleanse perineal area with R UE and proximal izzy LEs. Pt required assistance with buttocks and distal izzy LEs) LE Bathing Where Assessed Bed level UE Dressing UE Dressing Level of Assistance Partial/moderate assistance (Pt able to thead R UE into shirt, thread partial of L UE into shirt with verbal cues for technique, slightly pulling head through neckline of shirt, and partiall hiking down shirt over trunk on R side. Overall, OT assisting with 50% of task.) UE Dressing Where Assessed Edge of bed LE Dressing LE Dressing Yes Pants Level of Assistance Substantial/maximal assistance (pt able to hike pants from izzy knees to hips with verbal cues for technique. Pt required assistance with all other tasks.) Sock Level of Assistance Substantial/maximal assistance (pt able to lift R LE in order for OT to don bridge attacher socks. Pt able to adjust sock on R foot from seated position. OT assisted with rest of footwear tasks) LE Dressing Where Assessed Edge of bed Bed Mobility Lying to Sitting Assistance Partial/moderate assistance (assistance with trunk with increase time to task) Functional Transfers Sit to Stand Assistance Partial/moderate assistance (more than steadying assist) Chair/Bed to Chair/Bed Assistance Partial/moderate assistance (more than steadying assist) Other Activity Other Activity 1 Pt seen this AM for skilled OT ADL session. Upon approach, pt semi supine in bed, awake. Pt alert and oriented and agreeable to participate in session. pt addressing concerns regarding being in rehab and requesting to d/c home ish. OT provided education to pt on importance of therapy dosciplines, being at rehab, baseline function vs current function, and goals needed to be obtained in order to safely d/c back into community. Pt verbalized understanding. pt Vitals assessed in lying position, refer to retainer above. Pt completed bed mobility with mod assist for trunk support with increase time to task in order to move R LE to EOB with verbal cues for technique. Pt completed sponge bath seated EOB with mod assist requiring OT assistance with cleansing R UE, distal izzy LEs and buttocks. pt required increase time to task d/t slow motor function in L UE. OT encouraged pt toutilize L UE as much as possible in order to increase overall functional use. Pt completed upper body dressing seated unsupported with mod assist, requiring OT assistance with 50% of task. Verbal cues provided for technique in order to increase overall IND. Pt completed lower body dressing tasks with max assist, pt able to hike pants from izzy knees to hips with verbal cues for technique. Pt required assistance with all other tasks. pt completed footwear tasks seated EOB with max assist, pt able to adjust/hike sock on R foot form ankle to lance with verbal cues for technique and steadying assist. Pt required assistance with all other tasks. Pt completed stand pivot txfer bed>w/c to R side with partial assist for more than steadying assist. Pt completed grooming tasks sinkside. Pt completed oral hygiene seated in w/c with supervision for safety with task. Pt shaved face seated in w/c with supervision for safety with task. Pt able to place shaving cream on face. Pt required assistance with setting up razor and placing razor accordingly in pts hand. Pt required increase time to complete shaving tasks. Pt ate breakfast seated in w/c with set up assistance for opening all containers on tray. OT Assessment OT Assessment Results Decreased ADL status;Decreased upper extremity range of motion;Decreased upper extremity strength;Decreased endurance;Decreased fine motor control;Decreased functional mobility;Decreased gross motor control;Decreased IADLs;Non-functional left upper extremity Prognosis Good Evaluation/Treatment Tolerance Patient tolerated treatment well Plan Treatment Interventions ADL retraining;Functional transfer training;UE strengthening/ROM;Endurance training;Patient/family training;Equipment evaluation/education;Neuromuscular reeducation;Fine motorcoordination activities;Compensatory technique education OT Plan Skilled OT OT Frequency 5-7 days per week OT Duration of Sessions 60-90 min per session OT Treatments per day 1-2 times per day OT - Evaluation Status Complete Equipment Recommended (TBD prior to d/c) OT Assessment OT Assessment OT Assessment Results: Decreased ADL status, Decreased upper extremity range of motion, Decreased upper extremity strength, Decreased endurance, Decreased fine motor control, Decreased functional mobility, Decreased gross motor control, Decreased IADLs, Non-functional left upper extremity Prognosis: Good Evaluation/Treatment Tolerance: Patient tolerated treatment well Medical Staff Made Aware: Yes OT Plan Plan Treatment Interventions: ADL retraining, Functional transfer training, UE strengthening/ROM, Endurance training, Patient/family training, Equipment evaluation/education, Neuromuscular reeducation, Fine motor coordination activities, Compensatory technique education OT Plan: Skilled OT OT Frequency : 5-7 days per week OT Duration of Sessions: 60-90 min per session OT Treatments per day: 1-2 times per day OT - Evaluation Status: Complete Equipment Recommended: (TBD prior to d/c) Goals: Encounter Problems Encounter Problems (Active) Template: Occupational Therapy Problem: OT Group Home Goals Dates: Start: 05/24/24 Goal: pt will be IND with lower body dressing AE PRN Dates: Start: 05/24/24 Expected End: 06/14/24 Goal: pt will be IND with upper body dressing Dates: Start: 05/24/24 Expected End: 06/14/24 Goal: pt will be IND with toilet txfer LRAD Dates: Start: 05/24/24 Expected End: 06/14/24 Goal: pt will ne IND with toileting tasks LRAD Dates: Start: 05/24/24 Expected End: 06/14/24 Goal: pt will be IND with footwear tasks AE PRN Dates: Start: 05/24/24 Expected End: 06/14/24 Problem: OT Short Term Goals Dates: Start: 05/24/24 Goal: Pt will be mod assist with upper body dressing Dates: Start: 05/24/24 Expected End: 05/31/24 Goal: Pt will me max assist with lower body dressing AE PRN Dates: Start: 05/24/24 Expected End: 05/31/24 Goal: Pt will be max assist with footwear AE PRN Dates: Start: 05/24/24 Expected End: 05/31/24 Goal: pt will be mod assist toilet txfer LRAD Dates: Start: 05/24/24 Expected End: 05/31/24 Goal: pt will be max assist with toileting tasks Dates: Start: 05/24/24 Expected End: 05/31/24 Encounter Problems (Resolved) There are no resolved problems. Education Documentation Body Mechanics, taught by Coby Aleman OT at 05/30/2024 8:31 AM. Learner: Patient Readiness: Acceptance Method: Explanation Response: Verbalizes Understanding, Needs Reinforcement Comment: Pt educated on ADL techniques (laurel dressing) and use of L UE during ADL tasks in order toimprove overall function needed for daily tasks Precautions, taught by Coby Aleman OT at 05/30/2024 8:31 AM. Learner: Patient Readiness: Acceptance Method: Explanation Response: Verbalizes Understanding, Needs Reinforcement Comment: Pt educated on ADL techniques (laurel dressing) and use of L UE during ADL tasks in order toimprove overall function needed for daily tasks ADL Training, taught by Coby Aleman OT at 05/30/2024 8:31 AM. Learner: Patient Readiness: Acceptance Method: Explanation Response: Verbalizes Understanding, Needs Reinforcement Comment: Pt educated on ADL techniques (laurel dressing) and use of L UE during ADL tasks in order toimprove overall function needed for daily tasks Education Comments No comments found. Start/Stop Time OT Time Calculation OT Start Time: 0700 OT Stop Time: 829 OT Time Calculation (min): 90 min Therapy Minutes: Occupational Therapy OT Individual: 90 * Malena Soto NP - 05/29/2024 10:21 AM EST Images from the original note were not included. SUSU PROGRESS NOTE Date: 05/29/2024 Author: Malena Soto NP Patient ID: Bob Han is a 74 y.o. male : 1950 MR#: [id number] SUBJECTIVE Subjective Frequency symptoms improved Patient is moving his bowels denies constipation last documented BM 05/26 Denies any fever chills abdominal pain Sleeping well RN states patient had a very large BM on 05/28 Has had incontinence of urine ROS Constitutional :no fever chills , appetite fair, sleeping well HEENT: denies headaches Respiratory: denies shortness of breath, coughing or wheezing Cardiac: denies chest pain, palpitations, : No abd pain, no N/V. Genitourinary: see above Musculoskeletal: Arthritic pain to his joints chronic back pain Allergies Acetaminophen, Atorvastatin, Glipizide, and Rosuvastatin Current Medications: amLODIPine, 5 mg, oral, Daily amoxicillin, 250 mg, oral, q8h HUNTER aspirin, 81 mg, oral, Daily docusate sodium, 100 mg, oral, BID ezetimibe, 10 mg, oral, Daily nystatin, , Topical, BID polyetheylene glycol, 17 g, oral, Daily senna, 2 tablet, oral, Nightly PRN medications: aluminum-magnesium hydroxide-simethicone, bisacodyL, dextrose 50%, dextrose 50%, dextrose, dextrose, glucagon injection, magnesium hydroxide, melatonin OBJECTIVE Vitals: 05/28/24 0824 05/28/24 1611 05/29/24 0304 05/29/24 0815 BP: 131/71 132/66 133/67 124/66 BP Location: Right arm Right arm Patient Position: Lying Sitting Pulse: 71 76 69 66 Resp: 16 Temp: 36.6 ??C (97.9 ??F) 36.9 ??C (98.4 ??F) 36.5 ??C (97.7 ??F) TempSrc: Oral Oral SpO2: 95% 95% 94% 96% PHYSICAL EXAM General-NAD, cognitively- intact , AAO- ??3 , appears stated age, appears comfortable Heart-RRR, normal S1, S2, no clicks, heaves, murmurs, splits, gallops, rubs Lungs-CTA B no adventitious breath sounds. Abdomen-S NT BS ??4, no distention Extremities-M AE, no CCE, cap refill brisk, DPP Neuromuscular-focally unchanged left hemiparesis particularly of the arm Integumentary- turgor good, skin warm dry intact, no rashes LABS HEMATOLOGY Lab Results Component Value Date WBC 10.6 05/29/2024 HGB 13.1 (L) 05/29/2024 HCT 39.8 (L) 05/29/2024 MCV 88.2 05/29/2024 PLT 293 05/29/2024 CHEMISTRY Lab Results Component Value Date GLUCOSE 96 05/29/2024 NA 131 (L) 05/29/2024 K 4.0 05/29/2024 CO2 27 05/29/2024 CL 99 05/29/2024 BUN 26 (H) 05/29/2024 CREATININE 0.80 05/29/2024 EGFR 93 05/29/2024 CALCIUM 9.0 05/29/2024 ANIONGAP 5 05/29/2024 Imaging: No image results found. ASSESSMENT & PLAN 73 y/o male hx of HTN, diabetes no longer on medication after wt loss who presented to [facility] left-sided weakness Acute ischemic CVA-acute pontine CVA CTA of the head and neck no acute stroke. Echocardiogram EF of 63%, moderate aortic valve stenosis Family history of factor V Leiden Labs pending Seen by neurology who recommended aspirin, intolerant of statin now on Zetia Per rehab team Follow-up with neurology after discharge-[facility] Moderate aortic stenosis currently euvolemic asymptomatic monitor History of spinal stenosis. chronic left lower extremity weakness Patient reports chronic bowel dysfunction constipation difficulties as a result of spinal issues. On chronic bowel meds- Dulcolax and MiraLAX Constipation add Senokot at night may switch to Dulcolax if no result. Suppository -05/28 apparently patient had a large BM-Per RN Continue to follow Urinary frequency urgency incontinence Bladder scans Check UA/CS--trace ketones moderate blood positive nitrates small leukocyte 27 white cells 3 RBCs 6squamous epithelials many bacteria UTI -culture greater than 100,000 E. coli Monitor renal function patient's on the drum drier side Amoxil 150 mg 3 times daily treat for 10 days due to complexity male/hospitalized-sensitive E. Coli UTI See above Hypertension Amlodipine 5 mg BP reasonable controlled History of diabetes Resolved after weight loss A1c 5.3 Hyperlipidemia Intolerant of statin currently on Zetia Follow-up with PCP after discharge for ongoing monitoring Hyperammonemia Resolved unclear significance Ultrasound of of liver no evidence of disease Lactulose was discontinued DVT prophylaxis defer to Dr. Calles DAILY CARE CHECKLIST Cosigned by Bhupinder Jara MD at 05/31/2024 11:01 AM EST * Carmenza Lazo RN - 05/29/2024 7:00 AM EST Upon assessment overnight a small non blanchable reddened area, approximately 2 cm x 2 cm noted to right lateral upper heel. Heel protectors and PUPP boots applied to bilateral feet. Small reddened linear area also noted to left upper buttocks, Duoderm applied. Pt repositioned with the use of pillow support for skin protection. * Sofia Corral OT - 05/28/2024 5:46 PM EST [facility] Occupational Therapy Treatment Note 05/28/24 Patient: Bob Han : 1950 Age: 74 y.o. Gender: male Diagnosis: CVA (cerebral vascular accident) (CMS/HCC) Primary Rehab (Etiologic) Diagnosis: Patient Active Problem List Diagnosis CVA (cerebral vascular accident) (CMS/HCC) PMH: Past Medical History: Diagnosis Date HLD (hyperlipidemia) HTN (hypertension) Migraines Spinal stenosis PSH: History reviewed. No pertinent surgical history. Allergies: is allergic to acetaminophen, atorvastatin, glipizide, and rosuvastatin. Precautions: Precautions Medical Precautions: Fall Risk Safety Interventions: Call [place] within reach, ID band on, Chair alarm RUE Weight Bearing Status: Full LUE Weight Bearing Status: Full RLE Weight Bearing Status: Full LLE Weight Bearing Status: Full Vitals: Pain: Pain Assessment Pain Score: 0 - No pain Subjective: I want to get this arm to work . Procedures/Interventions: Balance/Neuromuscular Re-Education Neuromuscular Re-Education Time Entry: 90 With use of mirror for visual feedback and tactile cues and facilitation techniques provided to increase motor recovery / motor relearning , and for increasing sensory input and proprioceptive feedback , and with demonstration and instruction provided , pt completed with following with present and able to repeat the following exercises with pt , in order for pt to perform when not in therapy : a/arom left shoulder / scapular stabilization exercises , shoulder flexion and extension , with left UE on table top , with towel under UE , shoulder flexion and extension , a/arom and arom withscapular protraction and retraction ; elbow flexion and extension , a/arom and arom ; a/arom and arom wrist extension , digit flexion and extension , digit abduction and adduction , tricep strengthening , arom and a/arom elbow supination and pronation; place and hold and rhythmic stabilization incorporated into the above exercises ; passive rom left MP and DIP and PIP flexion and extension ; withuse of 1# dowel , a/arom B chest press with scapular retraction , all exercises, 2 to 3 sets , x 6 to 8 repetitions ; encouraged pt to sit upright unsupported in wheel chair to increased anterior pelvic tilt , pt unable due to history of spinal issues , per pt . Total A with wheelchair mobility ; OT Assessment OT Assessment OT Assessment Results: Decreased ADL status, Decreased upper extremity range of motion, Decreased upper extremity strength, Decreased endurance, Decreased gross motor control, Decreased functional mobility, Decreased fine motor control Prognosis: Good Evaluation/Treatment Tolerance: Patient tolerated treatment well Medical Staff Made Aware: Yes OT Plan Plan Treatment Interventions: ADL retraining, Functional transfer training, UE strengthening/ROM, Endurance training, Patient/family training, Neuromuscular reeducation, Fine motor coordination activities, Compensatory technique education OT Plan: Skilled OT OT Frequency : 5-7 days per week OT Duration of Sessions: 60-90 min per session OT Treatments per day: 1-2 times per day OT - Evaluation Status: Complete Equipment Recommended: (TBD) Goals: Encounter Problems Encounter Problems (Active) Template: Occupational Therapy Problem: OT Group Home Goals Dates: Start: 05/24/24 Goal: pt will be IND with lower body dressing AE PRN Dates: Start: 05/24/24 Expected End: 06/14/24 Goal: pt will be IND with upper body dressing Dates: Start: 05/24/24 Expected End: 06/14/24 Goal: pt will be IND with toilet txfer LRAD Dates: Start: 05/24/24 Expected End: 06/14/24 Goal: pt will ne IND with toileting tasks LRAD Dates: Start: 05/24/24 Expected End: 06/14/24 Goal: pt will be IND with footwear tasks AE PRN Dates: Start: 05/24/24 Expected End: 06/14/24 Problem: OT Short Term Goals Dates: Start: 05/24/24 Goal: Pt will be mod assist with upper body dressing Dates: Start: 05/24/24 Expected End: 05/31/24 Goal: Pt will me max assist with lower body dressing AE PRN Dates: Start: 05/24/24 Expected End: 05/31/24 Goal: Pt will be max assist with footwear AE PRN Dates: Start: 05/24/24 Expected End: 05/31/24 Goal: pt will be mod assist toilet txfer LRAD Dates: Start: 05/24/24 Expected End: 05/31/24 Goal: pt will be max assist with toileting tasks Dates: Start: 05/24/24 Expected End: 05/31/24 Encounter Problems (Resolved) There are no resolved problems. Education Documentation No documentation found. Education Comments No comments found. Start/Stop Time OT Time Calculation OT Start Time: 1325 OT Stop Time: 1455 OT Time Calculation (min): 90 min Therapy Minutes: Occupational Therapy OT Individual: 90 * Fanny Boyd, BULK [employer]UIDS HANDLER - 05/28/2024 3:30 PM EST Speech Language Pathology Speech Language Pathology Treatment Subjective B[employer]K [employer]UIDS HANDLER Start Time: 1030 BULK FLUIDS HANDLER Stop Time: 1100 BULK FLUIDS HANDLER Time Calculation (min): 30 min Subjective: Pt was alert and sitting upright in wheelchair for the session. Pt was pleasant and agreeable to session, needed frequent redirections due to tangential speech. Objective General Visit Info General Family/Caregiver Present: No Treatment Speech and Language Speech Treatment (Individual) Time Entry: 10 Verbal Expression: Pt was able to provide synonyms and antonyms for target word w/ 62% accuracy indep/ and 87% accuracy given mod A for following the directions and sentence completion. Cognitive Skills Therapeutic Interventions Cognitive Skills Direct Contact Time Entry: 20 Sequencing: Pt was able to complete sequencing task w/ pictures w/ 71% accuracy indep. and 86% accuracy given mod A for organization Memory: Pt reported that he completed his memory log from yesterday and reviewed it w/ this service writer advisor.Pt started a memory log for today w/ mod A for recall and organization. Pt tasked w/ finishing the memory log for HW. Pt reported that he found the memory log helpful. Reasoning: Pt was able to answer hypothetical questions related to safety w/ 60% accuracy indep. and 80% accuracy given min A for eleboration of appropriate responses and 90% accuracy given mod A forappropriate solutions Other Cognitive Skills Activity: Pt indep/ identified a deficit after the stroke (leg wouldn't liftup when walking) and x1 given mod verbal prompts. Pt reported that he is more emotional after his stroke and was provided education about changes after a stroke. Cognitive Skills Comments: Pt continues to present w/ tangential speech and benefited from verbal cues to focus. Assessment/Plan BULK [employer]UIDS HANDLER Assessment BULK [employer] HANDLER Assessment Results: Cognitive impairments Evaluation/Treatment Tolerance: Patient tolerated treatment well Plan Treatment/Interventions: Cognitive linguistic functioning BULK FLUIDS HANDLER Plan: Skilled BULK FLUIDS HANDLER BULK [employer]UIDS HANDLER Frequency: 5-7 days per week B[employer]K [employer] HANDLER Duration of Sessions: 30-60 min per session B[employer] HAND[employer]ER Treatments per day: 1 time per day Goals Encounter Problems Encounter Problems (Active) Template: Speech Therapy Problem: BULK FLUIDS HANDLER Master Sonar Technician Goals Dates: Start: 05/24/24 Goal: Pt will improve cognitive linguistic skills to maximize indp for safe d/c back to community. Dates: Start: 05/24/24 Expected End: 06/14/24 Outcomes Date/Time User Outcome 05/28/24 1528 LORNE Bach Progressing Problem: BULK FLUIDS HANDLER Short Term Goals Dates: Start: 05/24/24 Goal: Pt will participate in additional cognitive linguistic assessment. Dates: Start: 05/24/24 Expected End: 05/27/24 Outcomes Date/Time User Outcome 05/26/24 1405 LORNE Bach Progressing Goal: Pt will improve immediate and delayed recall of functional information to 80% accuracy given mod A for strategies. Dates: Start: 02/04/25 Expected End: 05/31/24 Outcomes Date/Time User Outcome 05/27/24 115LORNE Bernstein Not Progressing Goal: Pt will participate in basic convergent/divergent categorization tasks at 80% accuracy given mod A. Dates: Start: 05/24/24 Expected End: 05/31/24 Outcomes Date/Time User Outcome 05/28/24 132LORNE Perez Progressing Goal: Pt will participate in basic mental flexibility/working memory tasks at 80% accuracy given mod A. Dates: Start: 05/24/24 Expected End: 05/31/24 Outcomes Date/Time User Outcome 05/26/24 1408 LORNE Bach Not Progressing Goal: Pt will complete functional tasks targeting executive functioning skills (planning, organization, mental flexibility) at 80% accuracy given mod A. Dates: Start: 05/25/24 Expected End: 06/01/24 Description: Outcomes Date/Time User Outcome 05/27/24 115LORNE Bernstein Progressing Goal: Pt will complete sequencing tasks w/ 90% accuracy given mod A Dates: Start: 05/26/24 Expected End: 06/02/24 Description: Outcomes Date/Time User Outcome 05/28/24 1528 LORNE Bach Not Progressing Goal: Pt will be able to answer problem-solving/reasoning tasks related to safety and ADLs w/ 90% accuracy given min A Dates: Start: 05/26/24 Expected End: 06/02/24 Description: Outcomes Date/Time User Outcome 05/28/24 132LORNE Perez Progressing Goal: Pt will be able to identify 2 post-stroke deficits given min A Dates: Start: 05/27/24 Expected End: 06/03/24 Description: Outcomes Date/Time User Outcome 05/28/24 LORNE Montilla Progressing Encounter Problems (Resolved) There are no resolved problems. Education Documentation Speech/Language, taught by LORNE Bach at 05/28/2024 3:28 PM. Learner: Patient Readiness: Acceptance Method: Explanation Response: Verbalizes Understanding, Needs Reinforcement Cognition, taught by LORNE Bach at 05/28/2024 3:28 PM. Learner: Patient Readiness: Acceptance Method: Explanation Response: Verbalizes Understanding, Needs Reinforcement Education Comments No comments found. Cosigned by LORNE Rodriguez at 05/28/2024 5:48 PM EST Associated attestation - Corina Curran SLP - 05/28/2024 5:48 PM EST I attest that I, Coby Curran M.S.,[facility]-BULK FLUIDS HANDLER, was physically involved in the ongoing assessment, decision making, and interventions provided during today's patient care session. I have reviewed all documentation for today's 05/28/24, entered by Speech Therapy Fellow, Fanny Boyd, and furtherattest that it is an accurate clinical record of today's encounter, including accurate and appropriate charges. * Malena Soto NP - 05/28/2024 9:44 AM EST Images from the original note were not included. DRYFORK PROGRESS NOTE Date: 05/28/2024 Author: Malena Soto NP Patient ID: Bob Han is a 74 y.o. male : 1950 MR#: [id number] SUBJECTIVE Subjective Patient complains of frequency no dysuria no recent [place] Patient is moving his bowels denies constipation Denies any fever chills abdominal pain Sleeping well Has had incontinence of urine ROS Constitutional :no fever chills , appetite fair, sleeping well HEENT: denies headaches Respiratory: denies shortness of breath, coughing or wheezing Cardiac: denies chest pain, palpitations, : No abd pain, no N/V. Genitourinary: see above Musculoskeletal: Arthritic pain to his joints chronic back pain Allergies Acetaminophen, Atorvastatin, Glipizide, and Rosuvastatin Current Medications: amLODIPine, 5 mg, oral, Daily aspirin, 81 mg, oral, Daily docusate sodium, 100 mg, oral, BID ezetimibe, 10 mg, oral, Daily nystatin, , Topical, BID polyetheylene glycol, 17 g, oral, Daily senna, 2 tablet, oral, Nightly PRN medications: aluminum-magnesium hydroxide-simethicone, bisacodyL, dextrose 50%, dextrose 50%, dextrose, dextrose, glucagon injection, magnesium hydroxide, melatonin OBJECTIVE Vitals: 05/27/24 0800 05/27/24 1531 05/28/24 0300 05/28/24 0824 BP: 118/84 138/70 130/68 131/71 BP Location: Right arm Right arm Patient Position: Lying Sitting Pulse: 78 70 71 Resp: 16 16 Temp: 36.9 ??C (98.4 ??F) 36.6 ??C (97.9 ??F) TempSrc: Oral SpO2: 95% 96% 97% 95% PHYSICAL EXAM General-NAD, cognitively- intact , AAO- ??3 , appears stated age, appears comfortable Heart-RRR, normal S1, S2, no clicks, heaves, murmurs, splits, gallops, rubs Lungs-CTA B no adventitious breath sounds. Abdomen-S NT BS ??4, no distention, organomegaly, no palpable masses. Extremities-M AE, no CCE, cap refill brisk, DPP Neuromuscular-focally unchanged left hemiparesis particularly of the arm Integumentary- turgor good, skin warm dry intact, no rashes LABS HEMATOLOGY Lab Results Component Value Date WBC 7.5 05/24/2024 HGB 13.8 05/24/2024 HCT 40.9 (L) 05/24/2024 MCV 88.5 05/24/2024 PLT 316 05/24/2024 CHEMISTRY Lab Results Component Value Date GLUCOSE 106 (H) 05/27/2024 NA 138 05/24/2024 K 4.2 05/24/2024 CO2 24 05/24/2024 CL 107 05/24/2024 BUN 19 05/24/2024 CREATININE 0.74 05/24/2024 EGFR 96 05/24/2024 CALCIUM 9.0 05/24/2024 ANIONGAP 7 05/24/2024 Imaging: No image results found. ASSESSMENT & PLAN 73 y/o male hx of HTN, diabetes no longer on medication after wt loss who presented to [facility] left-sided weakness Acute ischemic CVA-acute pontine CVA CTA of the head and neck no acute stroke. Echocardiogram EF of 63%, moderate aortic valve stenosis Family history of factor V Leiden Labs pending Seen by neurology who recommended aspirin, intolerant of statin now on Zetia Per rehab team Follow-up with neurology after discharge-[facility] Moderate aortic stenosis currently euvolemic asymptomatic monitor History of spinal stenosis. chronic left lower extremity weakness Patient reports chronic bowel dysfunction constipation difficulties as a result of spinal issues. On chronic bowel meds- Dulcolax and MiraLAX Constipation add Senokot at night may switch to Dulcolax if no result. Suppository yesterday Last BM 2/6 Urinary frequency urgency incontinence Bladder scans Check UA/CS--trace ketones moderate blood positive nitrates small leukocyte 27 white cells 3 RBCs 6squamous epithelials many bacteria Clinically supported UTI culture greater than 100,000 E. coli Start Amoxil treat for 10 days due to complexity male/hospitalized UTI See above Hypertension Amlodipine 5 mg BP reasonable controlled History of diabetes Resolved after weight loss A1c 5.3 Hyperlipidemia Intolerant of statin currently on Zetia Follow-up with PCP after discharge for ongoing monitoring Hyperammonemia Resolved unclear significance Ultrasound of of liver no evidence of disease Lactulose was discontinued DVT prophylaxis defer to Dr. Calles DAILY CARE CHECKLIST Cosigned by Bhupinder Jara MD at 05/31/2024 11:01 AM EST * Christa Calderon, PT - 05/28/2024 8:30 AM EST [facility] Physical Therapy Treatment Note 05/28/2024 Patient: Bob Han : 1950 Age: 74 y.o. Gender: male Primary Language: Argentine Diagnosis: CVA (cerebral vascular accident) (CMS/HCC) Past Medical History: Diagnosis Date HLD (hyperlipidemia) HTN (hypertension) Migraines Spinal stenosis History reviewed. No pertinent surgical history. Allergies: is allergic to acetaminophen, atorvastatin, glipizide, and rosuvastatin. Precautions: Medical Precautions: Fall Risk Safety Interventions: Call [place] within reach, ID band on, Chair alarm RUE Weight Bearing Status: Full LUE Weight Bearing Status: Full RLE Weight Bearing Status: Full LLE Weight Bearing Status: Full SUBJECTIVE Pt report: I just get tired so fast Pain: Pain Assessment: No/denies pain OBJECTIVE General Observation: Pt supine in bed upon arrival to session, agreeable to PT session. Procedure/Treatment: Neuromuscular Reeducation: Balance/Neuromuscular Re-Education Neuromuscular Re-Education Time Entry: 90 Pt supine in bed upon arrival to session, agreeable to PT session. Completing rolling to L and R sides with partial A for doffing brief and hygiene. Completion rolling to L and R sides with partial Jason don new brief. Assist in threading LEs though pants. Completion glute bridge to finish donning pants. Partial A for supine to sit for trunk and LLE management. Donning L GivMohr and sneakers. Completion stand pivot from edge of bed to wheelchair to R side with partial A, blocking L knee, no acute buckling. Partial - maxA wheelchair mobility from room to therapy gym. Completion 1x10 sit to stands at laurel bar with partial A. Cues for hand placement pushing from wheelchair to stand and binging back to wheelchair prior to sitting. Completion 3x10ft forward ambulation with each bout followed [id number] backwards walking back to wheelchair at laurel bar. Completion with partial A. Cues for increasing LLE hip and knee flexion to improve clearance. Small steps, step to pattern. Completion 1x5ft, 1x 7ft, 1x10ft ambulation with LBQC with partial Ax1, maxAx1 for controlled descent to wheelchair. Very fatiguing, decreased postural stability with LBQC. Decreased step size and clearance, increasing Lknee flexion with fatigue vs full extension. Step to pattern. Completion 1x8 alternating step taps to first 6 inch stair with RUE support, partial Ax1. Increased time needed to tap with and remove LLE from step. Completion 1x1, 2x1 6 [address] stair with RUE on handrail, maxA. Forward ascent, backwards descent. Max verbal instruction for sequencing on ascent with RLE and descent with LLE. Dependent wheelchair mobility back to room. Requesting to stay in chair. [place] L GivMohr and supporting R arm on arm tray and pillow. Chair alarm on, call [place] given, all needs met. Education: Education Documentation Warning Signs and Symptoms of Stroke, taught by Christa Calderon, PT at 05/28/2024 9:09 AM. Learner: Patient Readiness: Acceptance Method: Explanation, Demonstration Response: Verbalizes Understanding, Demonstrated Understanding Fall Precautions, taught by Christa Calderon, PT at 05/28/2024 9:09 AM. Learner: Patient Readiness: Acceptance Method: Explanation, Demonstration Response: Verbalizes Understanding, Demonstrated Understanding Body Mechanics, taught by Christa Calderon, PT at 05/28/2024 9:09 AM. Learner: Patient Readiness: Acceptance Method: Explanation, Demonstration Response: Verbalizes Understanding, Demonstrated Understanding Mobility Training, taught by Christa Calderon, PT at 05/28/2024 9:09 AM. Learner: Patient Readiness: Acceptance Method: Explanation, Demonstration Response: Verbalizes Understanding, Demonstrated Understanding Education Comments No comments found. ASSESSMENT PT Assessment PT Assessment Results: Decreased strength, Decreased range of motion, Decreased endurance, Impairedbalance, Impaired gait Prognosis: Good Evaluation/Treatment Tolerance: Patient tolerated treatment well Comments: Pt with good tolerance to treatment session. needing continued practice with ambulation with LBQC and stair completion to increase independnece. quickly fatiguing during session. Will continue to benefit from skilled physical therapy. Equipment: TBD Plan of Care Plan Treatment/Interventions: Functional transfer training, LE strengthening/ROM, Endurance training, Cognitive reorientation, Bed mobility, Gait training, Balance training, Continued evaluation, Compensatory technique education PT Plan: Skilled PT PT Frequency: 5-7 days per week PT Duration of Sessions: 60-90 min per session PT Treatments per day: 1 time per day PT Discharge Recommendations: Other (Comment) (TBD) Problems/Goals Goals: Encounter Problems Encounter Problems (Active) Template: Physical Therapy Problem: PT Group Home Goals Dates: Start: 05/24/24 Goal: mod-I ambulation x150ft Dates: Start: 05/24/24 Outcomes Date/Time User Outcome 05/27/24 1534 Mirlande Aquino, LUIS MANUEL Progressing Goal: mod-I x12 stairs unilat. railing Dates: Start: 05/24/24 Outcomes Date/Time User Outcome 05/27/24 1534 Mirlande Aquino PT Progressing Goal: mod-I bed mobility Dates: Start: 05/24/24 Outcomes Date/Time User Outcome 05/27/24 1534 Mirlande Aquino PT Progressing Goal: mod-I transfers Dates: Start: 05/24/24 Outcomes Date/Time User Outcome 05/27/24 1534 Mirlande Aquino PT Progressing Problem: PT Short Term Goals Dates: Start: 05/24/24 Goal: SUP bed mobility Dates: Start: 05/24/24 Outcomes Date/Time User Outcome 05/27/24 1534 Mirlande Aquino, PT Progressing Goal: partial A transfers LRAD Dates: Start: 05/24/24 Outcomes Date/Time User Outcome 05/27/24 1534 Mirlande Aquino, PT Progressing Goal: partial A x50ft LRAD ambulation Dates: Start: 05/24/24 Outcomes Date/Time User Outcome 05/27/24 1534 Mirlande Aquino PT Progressing Goal: partial A x4 stairs Dates: Start: 05/24/24 Outcomes Date/Time User Outcome 05/27/24 1534 Mirlande Aquino PT Progressing Encounter Problems (Resolved) There are no resolved problems. Session Start/Stop Time: 829 1000 Therapy Minutes Physical Therapy PT Individual: 90 * Mirlande Aquino PT - 05/27/2024 12:51 PM EST [facility] Physical Therapy Treatment Note 05/27/2024 Patient: Bob Han : 1950 Age: 74 y.o. Gender: male Primary Language: Argentine Diagnosis: CVA (cerebral vascular accident) (CMS/HCC) Past Medical History: Diagnosis Date HLD (hyperlipidemia) HTN (hypertension) Migraines Spinal stenosis History reviewed. No pertinent surgical history. Allergies: is allergic to acetaminophen, atorvastatin, glipizide, and rosuvastatin. Precautions: Medical Precautions: Fall Risk Safety Interventions: Call [place] within reach, ID band on, Chair alarm RUE Weight Bearing Status: Full LUE Weight Bearing Status: Full RLE Weight Bearing Status: Full LLE Weight Bearing Status: Full SUBJECTIVE Pt report: I get tired. Pain:0/10 OBJECTIVE General Observation: Seated in WC agreeable to participating in therapy session. Procedure/Treatment: Neuromuscular Reeducation: Balance/Neuromuscular Re-Education Neuromuscular Re-Education Time Entry: 80 Pt seated in WC agreeable to participating in therapy session. Pt dep. Brought down to therapy gym in . Therapist dondami guillermoing on LUE. Pt completed partial A STS at laurel-bar, pt ambulating partial A step to pattern partial-A x1 x10ft and ambulating backwards x8ft, unable to ambulate x10ft d/t fatigue. Pt completed x10ft of ambulation [id number] x1 LBQC and step to pattern, max-A for controlled descent into WC. Pt completed max-A STS to LBQC, ambulation x5ft with LBQC, partial A x1 for ambulation max-A for controlled descent into chair. Pt completed x3 trials of stairs with RUE on R railing, step to pattern leading with RLE, max-A x1, pt needing max cues for sequencing, pt unable to attend to cues. Therapist providing education to limit talking on stairs d/t impaired balanceand risk of falls. Pt reporting being TIMBI-SHA SHOSHONE, education provided this service writer advisor to provide x1 step command to pt and pt should limit talking on stairs. Pt completed x4 STS at laurel-bar cues for putting UE on arm rest and pushing for STS to laurel-bar, cues for weight shift to L side to improve WB and facilitate LLE knee extension. Therapist doffing darvin restrepo sling. Pt completed WC mobility back to room, partial-maxA x150ft, Therapist doffing darvin restrepo sling. Therapist assisting pt in completing memory log. Pt left seated in WC, call [place] in reach, chair alarm on, LUE supported all needs met. Education: Education Documentation Mobility Training, taught by Mirlande Aquino, PT at 05/27/2024 1:31 PM. Learner: Patient Readiness: Acceptance Method: Demonstration, Explanation Response: Verbalizes Understanding, Demonstrated Understanding, Needs Reinforcement Comment: Impaired standing balance, safety with gait training and stair training. Education Comments No comments found. ASSESSMENT Pt to benefit from continued stair training, pt with decreased LE weakness and endurance with prolonged activity. PT Assessment PT Assessment Results: Decreased strength, Decreased range of motion, Decreased endurance, Impairedbalance, Impaired gait Prognosis: Good Equipment: TBD Plan of Care Plan Treatment/Interventions: Functional transfer training, LE strengthening/ROM, Endurance training, Cognitive reorientation, Bed mobility, Gait training, Balance training, Continued evaluation, Compensatory technique education PT Plan: Skilled PT PT Frequency: 5-7 days per week PT Duration of Sessions: 60-90 min per session PT Treatments per day: 1 time per day PT Discharge Recommendations: Other (Comment) (TBD) Problems/Goals Goals: Encounter Problems Encounter Problems (Active) Template: Physical Therapy 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 railing Dates: Start: 05/24/24 Outcomes Date/Time User Outcome 05/27/24 153Jarvis Aquino PT Progressing Goal: mod-I bed mobility Dates: Start: 05/24/24 Outcomes Date/Time User Outcome 05/27/24 Aldo Aquino PT Progressing Goal: mod-I transfers Dates: Start: 05/24/24 Outcomes Date/Time User Outcome 05/27/24 Aldo Aquino PT Progressing Problem: PT Short Term Goals Dates: Start: 05/24/24 Goal: SUP bed mobility Dates: Start: 05/24/24 Outcomes Date/Time User Outcome 05/27/24 153Jarvis Aquino PT Progressing Goal: partial A transfers LRAD Dates: Start: 05/24/24 Outcomes Date/Time User Outcome 05/27/24 Aldo Aquino PT Progressing Goal: partial A x50ft LRAD ambulation Dates: Start: 05/24/24 Outcomes Date/Time User Outcome 05/27/24 Aldo Aquino PT Progressing Goal: partial A x4 stairs Dates: Start: 05/24/24 Outcomes Date/Time User Outcome 05/27/24 153Jarvis Aquino PT Progressing Encounter Problems (Resolved) There are no resolved problems. Session Start/Stop Time: 1240 1400 Therapy Minutes Physical Therapy PT Individual: 80 * Fanny Boyd, BULK FLUIDS HANDLER - 05/27/2024 11:57 AM EST Speech Language Pathology Speech Language Pathology Treatment Subjective BULK FLUIDS HANDLER Start Time: 0900 BULK FLUIDS HANDLER Stop Time: 1010 BULK FLUIDS HANDLER Time Calculation (min): 70 min Subjective: Pt was alert and sitting upright in wheelchair for the session. Pt was pleasant and cooperative throughout the session but required frequent redirections due to tangential speech. Objective General Visit Info General Family/Caregiver Present: No Treatment Speech and Language Speech Treatment (Individual) Time Entry: 15 Verbal Expression: Pt was able to generate items in a conrete category w/ 50% accuracy indep. and 80% given min A for use of visualization and 100% given mod A for use of assoications. Cognitive Skills Therapeutic Interventions Cognitive Skills Direct Contact Time Entry: 55 Sequencing: Pt was unable to sequence the steps to a STS transfer. Pt presented w/ disorganized thoughts and required max fading to mod A for sequencing the steps. Pt demonstrated perseveration on locking the brakes throughout the task and required frequent redirection. Pt was provided a visual forthe steps for the transfer. Memory: Pt reported baseline memory deficits w/ unknown cause. Pt was introduced to memory strategies and was provided a handout. Pt engaged in a conversation about the use of the memory strategies. Pt was introduced to BE FAST and was tasked w/ encoding it for recall task. Pt was given max A for encoding and was able to recall 1/6, pt reported feeling overwhelmed because his memory sucked sotask was reduced to recalling 3/3 s/s of a stroke, will target all 6 in future sessions. Pt was able to recall 3/3 given min A after 30-second and 1- min delay and 3/3 given 2-min and 5-min delay and 2/3 given 10-min delay. Pt reported that at night he has a difficult time recalling the events of the day and was introduced to the memory log. Pt was able to complete the memory log given max fading to min A for completing the details in the correct location. Pt was encouraged to fill out the PT section after PT sesssion. Attention/Concentration: Pt was able to answer questions related to reading a map w/ 50% accuracy indep., 80% given min A for visually scanning, pt often not scanning the R side of the map, and 100% given mod A for navigation. Pt engaged in a conversation about walking and safety after his stroke. Other Cognitive Skills Activity: Pt continues to demonstrate anosognosia. Pt reported no changes after his stroke. He reported that what was bad got worse and engaged in a conversation about congitive-linguistic changes and physical changes after a stroke. Pt was able to identify x1 deficit afterthe stroke (he is unable to lift himself up from bed) after the conversation. Cognitive Skills Comments: Pt continues to present w/ tangential speech and off- topic comments and required frequent redirections Assessment/Plan Plan Treatment/Interventions: Cognitive linguistic functioning BULK FLUIDS HANDLER Plan: Skilled BULK FLUIDS HANDLER BULK FLUIDS HANDLER Frequency: 5-7 days per week BULK FLUIDS HANDLER Duration of Sessions: 30-60 min per session BULK [employer]UIDS HANDLER Treatments per day: 1 time per day Goals Encounter Problems Encounter Problems (Active) Template: Speech Therapy Problem: BULK FLUIDS HANDLER Group Home Goals Dates: Start: 05/24/24 Goal: Pt will improve cognitive linguistic skills to maximize indp for safe d/c back to community. 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 Dates: Start: 05/24/24 Expected End: 05/27/24 Outcomes Date/Time User Outcome 05/26/24 1405 LORNE Bach Progressing Goal: Pt will improve immediate and delayed recall of functional information to 80% accuracy given mod A for strategies. Dates: Start: 05/24/24 Expected End: 05/31/24 Outcomes Date/Time User Outcome 05/27/24 115LORNE Bernstein Not Progressing Goal: Pt will participate in basic convergent/divergent categorization tasks at 80% accuracy given mod A. Dates: Start: 05/24/24 Expected End: 05/31/24 Outcomes Date/Time User Outcome 05/27/24 LORNE Willis Progressing Goal: Pt will participate in basic mental flexibility/working memory tasks at 80% accuracy given mod A. Dates: Start: 05/24/24 Expected End: 05/31/24 Outcomes Date/Time User Outcome 05/26/24 1408 LORNE Bach Not Progressing Goal: Pt will complete functional tasks targeting executive functioning skills (planning, organization, mental flexibility) at 80% accuracy given mod A. Dates: Start: 05/25/24 Expected End: 06/01/24 Description: Outcomes Date/Time User Outcome 05/27/24 1156 LORNE Bach Progressing Goal: Pt will complete sequencing tasks w/ 90% accuracy given mod A Dates: Start: 05/26/24 Expected End: 06/02/24 Description: Outcomes Date/Time User Outcome 05/27/24 1156 LORNE Bach Not Progressing Goal: Pt will be able to answer problem-solving/reasoning tasks related to safety and ADLs w/ 90% accuracy given min A Dates: Start: 05/26/24 Expected End: 06/02/24 Description: Goal: Pt will be able to identify 2 post-stroke deficits given min A Dates: Start: 05/27/24 Expected End: 06/03/24 Description: Outcomes Date/Time User Outcome 05/27/24 115LORNE Bernstein Not Progressing Encounter Problems (Resolved) There are no resolved problems. Education Documentation Warning Signs and Symptoms of Stroke, taught by LORNE Bach at 05/27/2024 11:56 AM. Learner: Patient Readiness: Acceptance Method: Explanation, Handout Response: Needs Reinforcement, Verbalizes Understanding Speech/Language, taught by LORNE Bach at 05/27/2024 11:56 AM. Learner: Patient Readiness: Acceptance Method: Explanation Response: Verbalizes Understanding, Needs Reinforcement Cognition, taught by LORNE Bach at 05/27/2024 11:56 AM. Learner: Patient Readiness: Acceptance Method: Explanation Response: Verbalizes Understanding, Needs Reinforcement Education Comments No comments found. Cosigned by LORNE Rodriguez at 05/27/2024 3:43 PM EST Associated attestation - Corina Curran SLP - 05/27/2024 3:43 PM EST I attest that I, Coby Curran M.S.,CCC-BULK FLUIDS HANDLER, was physically involved in the ongoing assessment, decision making, and interventions provided during today's patient care session. I have reviewed all documentation for today's 05/26/24, entered by Speech Therapy Fellow, Fanny Boyd, and furtherattest that it is an accurate clinical record of today's encounter, including accurate and appropriate charges. * EIRC Chisholm - 05/27/2024 9:22 AM EST Images from the original note were not included. [facility] PROGRESS NOTE Date: 05/27/2024 Author: ERIC Chisholm Patient ID: Bob Han is a 74 y.o. male : 1950 MR#: [id number] SUBJECTIVE Subjective Pt moved his bowels. Ua pending. Staff needs to collect. C/o frequency . No dysuria. No f/c ROS Constitutional :no fever chills , appetite fair, sleeping well HEENT: denies headaches Respiratory: denies shortness of breath, coughing or wheezing Cardiac: denies chest pain, palpitations, : No abd pain, no N/V. Genitourinary: see above Musculoskeletal: Arthritic pain to his joints chronic back pain Allergies Acetaminophen, Atorvastatin, Glipizide, and Rosuvastatin Current Medications: amLODIPine, 5 mg, oral, Daily aspirin, 81 mg, oral, Daily docusate sodium, 100 mg, oral, BID ezetimibe, 10 mg, oral, Daily insulin lispro, 2-12 Units, subcutaneous, TID AC nystatin, , Topical, BID polyetheylene glycol, 17 g, oral, Daily senna, 2 tablet, oral, Nightly PRN medications: aluminum-magnesium hydroxide-simethicone, bisacodyL, dextrose 50%, dextrose 50%, dextrose, dextrose, glucagon injection, magnesium hydroxide, melatonin OBJECTIVE Vitals: 05/26/24 1606 05/27/24 0047 05/27/24 0732 05/27/24 0800 BP: (!) 149/69 136/69 118/84 BP Location: Right arm Right arm Right arm Patient Position: Sitting Lying Pulse: 79 87 80 Resp: 18 18 Temp: 37 ??C (98.6 ??F) 37.1 ??C (98.8 ??F) 37.1 ??C (98.8 ??F) TempSrc: Oral Oral Oral SpO2: 93% 96% 95% PHYSICAL EXAM General: conscious alert no acute distress HEENT: pupils are equal round and reactive. extraocular movements are grossly intact lungs clear to auscultation, no wheezing or crackles noted heart regular rate and rhythm, no murmur or rubs abdomen soft nontender nondistended positive bowel sounds Musculoskeletal: No gross deformity to joints extremities without edema, erythema or calf tenderness neuro: Left sided weakness mostly to the left upper extremity skin: no rashes or lesions. psych: mood stable appearing, good eye contact. LABS HEMATOLOGY Lab Results Component Value Date WBC 7.5 05/24/2024 HGB 13.8 05/24/2024 HCT 40.9 (L) 05/24/2024 MCV 88.5 05/24/2024 PLT 316 05/24/2024 CHEMISTRY Lab Results Component Value Date GLUCOSE 106 (H) 05/27/2024 NA 138 05/24/2024 K 4.2 05/24/2024 CO2 24 05/24/2024 CL 107 05/24/2024 BUN 19 05/24/2024 CREATININE 0.74 05/24/2024 EGFR 96 05/24/2024 CALCIUM 9.0 05/24/2024 ANIONGAP 7 05/24/2024 Imaging: No image results found. ASSESSMENT & PLAN 73 y/o male hx of HTN, diabetes no longer on medication after wt loss who presented to [facility] left-sided weakness # Acute ischemic CVA-acute pontine CVA CTA of the head and neck no acute stroke. Echocardiogram EF of 63%, moderate aortic valve stenosis Family history of factor V Leiden lab currently pending Seen by neurology who recommended aspirin, intolerant of statin now on Zetia Per rehab team Follow-up with neurology after discharge-[facility] #Moderate aortic stenosis currently euvolemic asymptomatic monitor #History of spinal stenosis. with chronic left lower extremity weakness Patient reports chronic bowel dysfunction constipation difficulties as a result of spinal issues. At home he takes Dulcolax and MiraLAX Constipation add MiraLAX, Senokot at night may switch to Dulcolax if no result. Suppository today #Urinary frequency urgency incontinence Bladder scans Check UA/CS-- to be collect # constipation - resolved. #Hypertension Amlodipine 5 mg BP reasonable controlled #History of diabetes Resolved after weight loss A1c 5.3 #Hyperlipidemia Intolerant of statin currently on Zetia Follow-up with PCP after discharge for ongoing monitoring #Hyperammonemia Resolved unclear significance Ultrasound of of liver no evidence of disease Lactulose was discontinued DVT prophylaxis defer to Dr. Calles DAILY CARE CHECKLIST * Suri Shaw DO - 05/27/2024 8:42 AM EST Images from the original note were not included. [facility] Daily Progress Note Patient name: Bob Han : 1950 SUBJECTIVE: Patient seen and examined at bedside today. No acute events overnight. Denies headaches, dizziness,shortness of breath, chest pain, nausea, constipation, and pain. No new concerns today. He has a radicluopathy from before that causes him a foot drop, but now it cannot be managed after the stroke. OBJECTIVE: Vitals: 05/26/24 1606 05/27/24 0047 05/27/24 0700 05/27/24 0732 BP: (!) 142/68 (!) 149/69 118/84 136/69 BP Location: Right arm Right arm Right arm Patient Position: Lying Lying Pulse: 79 87 80 Resp: 18 Temp: 37 ??C (98.6 ??F) 37.1 ??C (98.8 ??F) 37.1 ??C (98.8 ??F) TempSrc: Oral Oral SpO2: 93% 95% 96% Physical Examination: General: Alert, in no acute cardiopulmonary distress. Mental Status: Oriented to person, place and time. Normal affect. Head: Normocephalic. Eyes: Pupils are equal, round and reactive to light. Extraocular muscles intact. Ear, Nose and Throat: Oropharynx clear, mucous membranes moist. Ears and nose without masses, lesions or deformities. Neck: Supple, Trachea midline. Respiratory: Clear to auscultation and percussion. No wheezing, rales or rhonchi. Cardiovascular: Heart sounds normal. No thrills. Regular rate and rhythm, no murmurs, rubs or gallops. Gastrointestinal: Abdomen soft, non-tender, non-distended. Normal bowel sounds. Genitourinary: No costovertebral angle tenderness. Neurologic: Cranial nerves II-XII intact. Deep tendon reflexes +2 bilaterally. Negative Hoffmans sign bilaterally. Negative clonus bilaterally. + pronation and flexion drift of the left upper extremity with left upper extremity weakness 3+/5. Left lower extremity 5 minus/5, hyperreflexia on the left side with an extensor plantar response.Sensation intact bilaterally. Skin: No rashes or lesions. No petechiae or purpura. No edema. Musculoskeletal: No cyanosis or clubbing. No gross deformities. Normal range of motion to RUE and b/l LE. Limited rom due to weakness on LUE (3/5 strength throughout left upper extremity) CURRENT INPATIENT MEDICATIONS: Current Facility-Administered Medications: aluminum-magnesium hydroxide-simethicone (MAALOX) 200-200-20 mg/5 mL suspension 30 mL, 30 mL, oral,q4h PRN, Wenjesus Calles, DO amLODIPine (NORVASC) tablet 5 mg, 5 mg, oral, Daily, Wenjesus Jenningsese, DO, 5 mg at 05/27/24 0818 aspirin chewable tablet 81 mg, 81 mg, oral, Daily, Wen A Stevan, DO, 81 mg at 05/27/24 0818 bisacodyL (DULCOLAX) suppository 10 mg, 10 mg, rectal, Daily PRN, Wen A Stevan, DO, 10 mg at05/26/24 1348 dextrose (D50W) 50% injection 12.5 g, 12.5 g, intravenous, q15 min PRN, ERIC Carbone dextrose (D50W) 50% injection 25 g, 25 g, intravenous, q15 min PRN, ERIC Carbone dextrose 15 gram/60 mL oral solution 15 g, 15 g, oral, q15 min PRN, ERIC Carbone dextrose 15 gram/60 mL oral solution 30 g, 30 g, oral, q15 min PRN, ERIC Carbone docusate sodium (COLACE) capsule 100 mg, 100 mg, oral, BID, Wen A Stevan, DO, 100 mg at 05/27/24817 ezetimibe (ZETIA) tablet 10 mg, 10 mg, oral, Daily, Wen A Stevan, DO, 10 mg at 05/27/24817 Glucagon HCl (rDNA) injection 1 mg, 1 mg, intramuscular, Once PRN, ERIC Carbone insulin lispro injection 2-12 Units, 2-12 Units, subcutaneous, TID AC, ERIC Carbone magnesium hydroxide (MILK OF MAGNESIA) 400 mg/5 mL suspension 30 mL, 30 mL, oral, Daily PRN, Wen A Stevan, DO, 30 mL at 05/26/24817 melatonin tablet 9 mg, 9 mg, oral, Nightly PRN, Wen A Stevan, DO, 9 mg at 05/26/242025 nystatin (MYCOSTATIN) 100,000 unit/gram powder, , Topical, BID, Wen A Stevan, DO, Given at 05/27/24818 polyethylene glycol (MIRALAX) packet 17 g, 17 g, oral, Daily, ERIC Chisholm, 17 g at 05/27/24817 senna (SENOKOT) tablet 17.2 mg, 2 tablet, oral, Nightly, ERIC Chisholm, 17.2 mg at 05/26/242026 LABS: Lab Results Component Value Date WBC 7.5 05/24/2024 RBC 4.60 05/24/2024 HGB 13.8 05/24/2024 HCT 40.9 (L) 05/24/2024 MCV 88.5 05/24/2024 MCHC 33.7 05/24/2024 RDW 13.3 05/24/2024 PLT 316 05/24/2024 MPV 9.2 05/24/2024 NRBC 0.0 05/24/2024 DIFF Lab Results Component Value Date LYMPHOPCT 31.2 05/24/2024 NEUTROABS 3.78 05/24/2024 LYMPHSABS 2.33 05/24/2024 MONOABS 1.08 (H) 05/24/2024 EOSABS 0.15 05/24/2024 BASOSABS 0.08 05/24/2024 IMMGRANABS 0.04 (H) 05/24/2024 RETIC No results found for: RETIC , RETICCTPCT Lab Results Component Value Date NA 138 05/24/2024 K 4.2 05/24/2024 CL 107 05/24/2024 CO2 24 05/24/2024 GLUCOSE 106 (H) 05/27/2024 BUN 19 05/24/2024 CREATININE 0.74 05/24/2024 CALCIUM 9.0 05/24/2024 PROT 6.5 05/24/2024 ALBUMIN 3.0 (L) 05/24/2024 BILITOT 0.6 05/24/2024 AST 32 05/24/2024 ALT 35 05/24/2024 ALKPHOS 101 05/24/2024 EGFR 96 05/24/2024 IMPRESSION & PLAN: #Impaired mobility and self-care -Secondary to CVA -Continue with PT/OT/speech #Acute ischmic CVA #Left hemiparesis -Aspirin 81 mg daily -Ezetimibe 10 mg daily -continue therapies -f/u Neurology after discharge #Hypertension -Amlodipine 5 mg daily #DMT2 -A1C 5.3 -Diabetic diet -ISS #Lumbar spinal stenosis -will plan for follow up with [facility] after discharge for further management #Hyperammonemia, resolved -Present at [facility] on 05/17 however resolved #Bowel management -Colace 100mg BID DVT ppx: Continue Aspirin and ambulation with therapies as tolerated. SCDs to BLE when in bed. * Coby Aleman OT - 05/27/2024 7:00 AM EST [facility] Occupational Therapy Treatment Note 05/27/24 Patient: Bob Han : 1950 Age: 74 y.o. Gender: male Diagnosis: CVA (cerebral vascular accident) (CMS/HCC) Primary Rehab (Etiologic) Diagnosis: Patient Active Problem List Diagnosis CVA (cerebral vascular accident) (CMS/HCC) PMH: Past Medical History: Diagnosis Date HLD (hyperlipidemia) HTN (hypertension) Migraines Spinal stenosis PSH: History reviewed. No pertinent surgical history. Allergies: is allergic to acetaminophen, atorvastatin, glipizide, and rosuvastatin. Precautions: Precautions Medical Precautions: Fall Risk Safety Interventions: Call h[place] within reach, ID band on, Chair alarm RUE Weight Bearing Status: Full LUE Weight Bearing Status: Full RLE Weight Bearing Status: Full LLE Weight Bearing Status: Full Vitals: BP: 118/84 SpO2: 95 % Pain: Pain Assessment Pain Assessment: No/denies pain Pain Score: 0 - No pain Subjective: I can get up Procedures/Interventions: Oral Hygiene Oral Hygiene Level of Assistance: Supervision or touching assistance Oral Hygiene Where Assessed: Wheelchair LE Dressing LE Dressing: Yes Pants Level of Assistance: Dependent (Assistance with all tasks) Sock Level of Assistance: Dependent (assistance with all tasks) Shoe Level of Assistance: Dependent (assistance with all tasks) Adult Briefs Level of Assistance: Dependent (assistance with all tasks) LE Dressing Where Assessed: Edge of bed ADLs/IADLs Self Care/Home Management (ADLs) Time Entry: 75 ADL/ IADL Performed: Eating, Oral Hygiene, Bathing, Dressing Balance/Neuromuscular Re-Education Neuromuscular Re-Education Time Entry: 15 Balance/Neuromuscular Re-Education Activity 1: Pt completed L UE neuro re-ed with use of R UE completing shoulder flex/ext, elbow flex/ext, shoulder protraction/retraction, 2 sets 10 reps of each exercise in order to increase overall function of L UE needed for ADLs and daily tasks. 05/27/24 0800 OT Last Visit OT Received On 05/27/24 General Family/Caregiver Present No OT Time Calculation OT Start Time 07 OT Stop Time 829 OT Time Calculation (min) 90 min Occupational Therapy OT Individual 90 Precautions Medical Precautions Fall Risk Safety Interventions Call [place] within reach;ID band on;Chair alarm RUE Weight Bearing Status Full LUE Weight Bearing Status Full RLE Weight Bearing Status Full LLE Weight Bearing Status Full Vital Signs Patient Identification Yes BP 118/84 MAP (Calculated) 95 mm Hg BP Method Automatic BP Location Right arm Patient Position Lying SpO2 95 % Oxygen Therapy Patient Activity At rest Oxygen Therapy None (Room air) Pain Assessment Pain Assessment No/denies pain Pain Score 0 - No pain ADLs/IADLs Self Care/Home Management (ADLs) Time Entry 75 ADL/ IADL Performed Eating;Oral Hygiene;Bathing;Dressing Oral Hygiene Oral Hygiene Level of Assistance Supervision or touching assistance Oral Hygiene Where Assessed Wheelchair LE Dressing LE Dressing Yes Pants Level of Assistance Dependent (Assistance with all tasks) Sock Level of Assistance Dependent (assistance with all tasks) Shoe Level of Assistance Dependent (assistance with all tasks) Adult Briefs Level of Assistance Dependent (assistance with all tasks) LE Dressing Where Assessed Edge of bed Bed Mobility Lying to Sitting Assistance Substantial/maximal assistance Bed Mobility Comments (assistance with lifting L LE to EOB and trunk support) Functional Transfers Chair/Bed to Chair/Bed Assistance Substantial/maximal assistance (assistance with lifting and lowering) Cognition Overall Cognitive Status WFL Arousal/Alertness Appropriate responses to stimuli Orientation Level Oriented X4 Perception Inattention/Neglect Appears intact Sensation Light Touch No apparent deficits Balance/Neuromuscular Re-Education Neuromuscular Re-Education Time Entry 15 Balance/Neuromuscular Re-Education Activity 1 Pt completed L UE neuro re-ed with use of R UE completing shoulder flex/ext, elbow flex/ext, shoulder protraction/retraction, 2 sets 10 reps of each exercise in order to increase overall function of L UE needed for ADLs and daily tasks. Other Activity Other Activity 1 Pt seen this AM for skilled OT ADL session. Upon approach, pt semi supine in bed. Pt pleasant and agreeable to participate in session. Vitals assessed, refer to retainer above. Pt completed bed mobility with max assist to lift L LE to EOB and trunk support. Pt sat EOB to complete bathing and dressing tasks. Pt with slight R lateral leaning noted seated EOB with SPV to partial assist at times to correct upright posture and positioning. Pt completed sponge bath with max assist, pt able to cleanse chest, abd, and L UE however required assistance with all other tasks. pt completed lower body dressing tasks seated/standing with total assist. Pt completed upper body dressing tasks seated unsupported with max assist, pt able to thread L UE with verbal cues for technique of laurel dressing, Pt required assistance with all other tasks. Pt completed footwear seated unsupported EOB with total assist, requiring OT assistance with all tasks. Pt completed squat pivot txfer with max assist for lifting and lowering assistance. Pt at breakfast seated in w/c with supervision for safetywith task and 2 verbal cues for smaller bites. Pt able to tolerate task well. Pt completed oral hygiene seated in w/c with Supervision for safety with task. OT Assessment OT Assessment Results Decreased ADL status;Decreased upper extremity range of motion;Decreased upper extremity strength;Decreased endurance;Decreased gross motor control;Decreased functional mobility;Decreased fine motor control Prognosis Good Evaluation/Treatment Tolerance Patient tolerated treatment well Plan Treatment Interventions ADL retraining;Functional transfer training;UE strengthening/ROM;Endurance training;Patient/family training;Neuromuscular reeducation;Fine motor coordination activities;Compensatory technique education OT Plan Skilled OT OT Frequency 5-7 days per week OT Duration of Sessions 60-90 min per session OT Treatments per day 1-2 times per day OT - Evaluation Status Complete Equipment Recommended (TBD) OT Assessment OT Assessment OT Assessment Results: Decreased ADL status, Decreased upper extremity range of motion, Decreased upper extremity strength, Decreased endurance, Decreased gross motor control, Decreased functional mobility, Decreased fine motor control Prognosis: Good Evaluation/Treatment Tolerance: Patient tolerated treatment well Medical Staff Made Aware: Yes OT Plan Plan Treatment Interventions: ADL retraining, Functional transfer training, UE strengthening/ROM, Endurance training, Patient/family training, Neuromuscular reeducation, Fine motor coordination activities, Compensatory technique education OT Plan: Skilled OT OT Frequency : 5-7 days per week OT Duration of Sessions: 60-90 min per session OT Treatments per day: 1-2 times per day OT - Evaluation Status: Complete Equipment Recommended: (TBD) Goals: Encounter Problems Encounter Problems (Active) Template: Occupational Therapy 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 Goals Dates: Start: 05/24/24 Goal: pt will be IND with lower body dressing AE PRN Dates: Start: 05/24/24 Expected End: 06/14/24 Goal: pt will be IND with upper body dressing Dates: Start: 05/24/24 Expected End: 06/14/24 Goal: pt will be IND with toilet txfer LRAD Dates: Start: 05/24/24 Expected End: 06/14/24 Goal: pt will ne IND with toileting tasks LRAD Dates: Start: 05/24/24 Expected End: 06/14/24 Goal: pt will be IND with footwear tasks AE PRN Dates: Start: 05/24/24 Expected End: 06/14/24 Problem: OT Short Term Goals Dates: Start: 05/24/24 Goal: Pt will be mod assist with upper body dressing Dates: Start: 05/24/24 Expected End: 05/31/24 Goal: Pt will me max assist with lower body dressing AE PRN Dates: Start: 05/24/24 Expected End: 05/31/24 Goal: Pt will be max assist with footwear AE PRN Dates: Start: 05/24/24 Expected End: 05/31/24 Goal: pt will be mod assist toilet txfer LRAD Dates: Start: 05/24/24 Expected End: 05/31/24 Goal: pt will be max assist with toileting tasks Dates: Start: 05/24/24 Expected End: 05/31/24 Encounter Problems (Resolved) There are no resolved problems. Education Documentation Body Mechanics, taught by Coby Aleman OT at 05/27/2024 8:33 AM. Learner: Patient Readiness: Eager Method: Explanation Response: Verbalizes Understanding Comment: Pt educated on neuro re-education exercises and importance of completing exercises during down time with therapy in order to increase overall function in L UE needed for daily tasks. Education Comments No comments found. Start/Stop Time OT Time Calculation OT Start Time: 0700 OT Stop Time: 829 OT Time Calculation (min): 90 min Therapy Minutes: Occupational Therapy OT Individual: 90 * Mirlande Aquino, PT - 2024 3:25 PM EST [facility] Physical Therapy Treatment Note 2024 Patient: Bob Han : 1950 Age: 74 y.o. Gender: male Primary Language: Argentine Diagnosis: CVA (cerebral vascular accident) (CMS/HCC) Past Medical History: Diagnosis Date HLD (hyperlipidemia) HTN (hypertension) Migraines Spinal stenosis History reviewed. No pertinent surgical history. Allergies: is allergic to acetaminophen, atorvastatin, glipizide, and rosuvastatin. Precautions: Medical Precautions: Fall Risk Safety Interventions: Call [place] within reach, ID band on, Chair alarm RUE Weight Bearing Status: Full LUE Weight Bearing Status: Full RLE Weight Bearing Status: Full LLE Weight Bearing Status: Full NURSING RECOMMENDATIONS Bed Mobility: Transfers: Ambulation: SUBJECTIVE Pt report: I am just so tired I don't think I can do it Pain:0/10 OBJECTIVE General Observation: Supine in bed agreeable to participating in PT session. Vitals: BP: 135/64 Heart Rate: 83 SpO2: 96 % Procedure/Treatment: Therapeutic Activities: Therapeutic Activity Time Entry: 90 Pt supine in bed agreeable to PT session, per pt he received suppository prior to therapy session. Pt needing max-A for supine to sitting EOB, max-A x2 for stand pivot transfer to commode. Pt having large BM on commode, steadying assistance for STS to change brief. Pt completed squat pivot transferpartial-A x2 from commode to EOB. Pt partial A for sit to supine. PCT Present to perform bladder scan. Pt completed bed mobility max-A supine to sitting EOB, partial A stand pivot transfer to WC. Pt incontinent of urine. Pt needing partial A for STS at bed rail to change brief. Pt verbalized he wastoo fatigued to complete any more therapy. Pt completed partial A stand pivot transfer from WC to EOB, partial A for LE, dep boost. Therapist assessing BP 135/64 83 HR. Therapist assessing LE strength, no change. Pt oriented to self, situation, date, place. Pt left supine in bed, call [place] in reach, bed alarm on, all needs met. Therapist updating OSCAR Farfan on pts comments of feeling disoriented atnight time and pts urgency to urinate throughout day and night time. Education: Education Documentation Mobility Training, taught by Mirlande Aquino, PT at 2024 3:41 PM. Learner: Patient Readiness: Acceptance Method: Explanation, Demonstration Response: Verbalizes Understanding, Demonstrated Understanding, Needs Reinforcement Comment: impaired mobility, toileting, impaired balance. Education Comments No comments found. ASSESSMENT Pt with increased fatigue d/t toileting during therapy session, impaired standing tolerance this date. PT Assessment PT Assessment Results: Decreased strength, Decreased range of motion, Decreased endurance, Impairedbalance, Impaired gait Prognosis: Good Equipment: TBD Plan of Care Plan Treatment/Interventions: Functional transfer training, LE strengthening/ROM, Endurance training, Cognitive reorientation, Bed mobility, Gait training, Balance training, Continued evaluation, Compensatory technique education PT Plan: Skilled PT PT Frequency: 5-7 days per week PT Duration of Sessions: 60-90 min per session PT Treatments per day: 1 time per day PT Discharge Recommendations: Other (Comment) (TBD) Problems/Goals Goals: Encounter Problems Encounter Problems (Active) Template: Physical Therapy Problem: PT Group Home Goals Dates: Start: 05/24/24 Goal: mod-I ambulation x150ft Dates: Start: 05/24/24 Goal: mod-I x12 stairs unilat. railing Dates: Start: 05/24/24 Goal: mod-I bed mobility Dates: Start: 05/24/24 Goal: mod-I transfers Dates: Start: 05/24/24 Problem: PT Short Term Goals Dates: Start: 05/24/24 Goal: SUP bed mobility Dates: Start: 05/24/24 Goal: partial A transfers LRAD Dates: Start: 05/24/24 Goal: partial A x50ft LRAD ambulation Dates: Start: 05/24/24 Goal: partial A x4 stairs Dates: Start: 05/24/24 Encounter Problems (Resolved) There are no resolved problems. Session Start/Stop Time: 1400 1520 Therapy Minutes Physical Therapy PT Individual: 80 * Fanny Boyd, LORNE - 2024 2:10 PM EST Speech Language Pathology Speech Language Pathology Treatment Subjective BULK FLUIDS HANDLER Start Time: 1300 BULK FLUIDS HANDLER Stop Time: 1345 BULK FLUIDS HANDLER Time Calculation (min): 45 min Subjective: Pt was alert and sitting upright in bed for the session. Pt was emotional at the start of the session due to situation but was agreeable to session w/ encouragement. Objective General Visit Info General Family/Caregiver Present: No Treatment Speech and Language Speech Treatment (Individual) Time Entry: 15 Verbal Expression: Pt was able to generate 5/15 items in a conrete cateogry indep., 9/15 given min A for use of strategies, and 15/15 given mod A for idea generation. Pt was noted to have word finding difficulties x2 during task and was introduced to description as a word finding strategy and was given max A for use of strategies. Cognitive Skills Therapeutic Interventions Cognitive Skills Direct Contact Time Entry: 30 Sequencing: Pt was able to complete sequencing task w/ 70% given mod A for organization, visual scanning, and reasoning. Pt had increased difficulty w/ task so new sequencing goal added. Memory: Pt was unable to recall the steps for a transfer and was tasked w/ recalling locking the brakes when using the wheelchair to increase safety. Pt engaged in a conversation about the importanceof following safety measures (i.e. using the wheelchair vs walking and locking the brakes). Pt was able to recall locking the brakes given 30-second, 1-min, 2-min, 5-min, 10-min, and at the end of the session indep. Attention/Concentration: Pt was able to answer questions related to Understanding Stories You Hear level [address] deyvi w/ 30% accuracy given multiple choice cues and 70% given repetitions and max cues to listen to the story details. Pt demonstrated tangential speech during task and required frequent r edirect to the task. Reasoning: Pt scored a 15/20 on the VPJ which indicates some impairment Cognitive Skills Comments: Pt presented w/ tangential speech and hyperverbalizations and required frequent redirect to the tasks. Pt demonstrated anosognosia and reported that he is old but nothinghas changed since the stroke. Pt was provided education about cognitive-linguistic changes after a s troke. Assessment/Plan BULK FLUIDS HANDLER Assessment BULK FLUIDS HANDLER Assessment Results: Cognitive impairments, Expression deficits Evaluation/Treatment Tolerance: Patient tolerated treatment well Plan Treatment/Interventions: Cognitive linguistic functioning BULK FLUIDS HANDLER Plan: Skilled BULK FLUIDS HANDLER BULK FLUIDS HANDLER Frequency: 5-7 days per week BULK FLUIDS HANDLER Duration of Sessions: 30-60 min per session BULK FLUIDS HANDLER Treatments per day: 1 time per day BULK FLUIDS HANDLER - Next Appointment: 05/27/24 Goals Encounter Problems Encounter Problems (Active) Template: Speech Therapy Problem: BULK FLUIDS HANDLER Group Home Goals Dates: Start: 05/24/24 Goal: Pt will improve cognitive linguistic skills to maximize indp for safe d/c back to community. 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 Dates: Start: 05/24/24 Expected End: 05/27/24 Outcomes Date/Time User Outcome 05/26/24 1405 LORNE Bach Progressing Goal: Pt will improve immediate and delayed recall of functional information to 80% accuracy given mod A for strategies. Dates: Start: 05/24/24 Expected End: 05/31/24 Outcomes Date/Time User Outcome 05/26/24 1405 LORNE Bach Progressing Goal: Pt will participate in basic convergent/divergent categorization tasks at 80% accuracy given mod A. Dates: Start: 05/24/24 Expected End: 05/31/24 Outcomes Date/Time User Outcome 05/26/24 1405 LORNE Bach Progressing Goal: Pt will participate in basic mental flexibility/working memory tasks at 80% accuracy given mod A. Dates: Start: 05/24/24 Expected End: 05/31/24 Outcomes Date/Time User Outcome 05/26/24 1408 LORNE Bach Not Progressing Goal: Pt will complete functional tasks targeting executive functioning skills (planning, organization, mental flexibility) at 80% accuracy given mod A. Dates: Start: 05/25/24 Expected End: 06/01/24 Description: Goal: Pt will complete sequencing tasks w/ 90% accuracy given mod A Dates: Start: 05/26/24 Expected End: 06/02/24 Description: Goal: Pt will be able to answer problem-solving/reasoning tasks related to safety and ADLs w/ 90% accuracy given min A Dates: Start: 05/26/24 Expected End: 06/02/24 Description: Encounter Problems (Resolved) There are no resolved problems. Education Documentation Speech/Language, taught by LORNE Bach at 2024 2:09 PM. Learner: Patient Readiness: Acceptance Method: Explanation Response: Verbalizes Understanding, Needs Reinforcement Cognition, taught by LORNE Bach at 2024 2:09 PM. Learner: Patient Readiness: Acceptance Method: Explanation Response: Verbalizes Understanding, Needs Reinforcement Education Comments No comments found. Cosigned by LORNE Bynum at 2024 2:18 PM EST * ERIC Chisholm - 2024 11:30 AM EST Images from the original note were not included. SUSU PROGRESS NOTE Date: 2024 Author: ERIC Chisholm Patient ID: Bob Han is a 74 y.o. male : 1950 MR#: [id number] SUBJECTIVE Subjective Patient seen. He is complaining of constipation. Last bowel movement was several days ago he has noabdominal pain he has no nausea vomiting. He is also complaining of urinary incontinence frequency.He states premorbidly he did not have any trouble voiding. ROS Constitutional :no fever chills , appetite fair, sleeping well HEENT: denies headaches Respiratory: denies shortness of breath, coughing or wheezing Cardiac: denies chest pain, palpitations, : No abd pain, no N/V. Genitourinary: see above Musculoskeletal: Arthritic pain to his joints chronic back pain Allergies Acetaminophen, Atorvastatin, Glipizide, and Rosuvastatin Current Medications: amLODIPine, 5 mg, oral, Daily aspirin, 81 mg, oral, Daily docusate sodium, 100 mg, oral, BID ezetimibe, 10 mg, oral, Daily insulin lispro, 2-12 Units, subcutaneous, TID AC nystatin, , Topical, BID polyetheylene glycol, 17 g, oral, Daily senna, 2 tablet, oral, Nightly PRN medications: aluminum-magnesium hydroxide-simethicone, bisacodyL, dextrose 50%, dextrose 50%, dextrose, dextrose, glucagon injection, magnesium hydroxide, melatonin OBJECTIVE Vitals: 05/25/24 1547 05/26/24 0525 05/26/24 0700 05/26/24 0749 BP: (!) 141/64 129/71 138/67 137/69 BP Location: Right arm Right arm Right arm Patient Position: Lying Lying Sitting Pulse: 73 75 81 78 Resp: 18 Temp: 36.8 ??C (98.2 ??F) 36.9 ??C (98.4 ??F) 37 ??C (98.6 ??F) TempSrc: Oral Oral SpO2: 95% 96% 96% PHYSICAL EXAM General: conscious alert no acute distress HEENT: pupils are equal round and reactive. extraocular movements are grossly intact lungs clear to auscultation, no wheezing or crackles noted heart regular rate and rhythm, no murmur or rubs abdomen soft nontender nondistended positive bowel sounds Musculoskeletal: No gross deformity to joints extremities without edema, erythema or calf tenderness neuro: Left sided weakness mostly to the left upper extremity skin: no rashes or lesions. psych: mood stable appearing, good eye contact. LABS HEMATOLOGY Lab Results Component Value Date WBC 7.5 05/24/2024 HGB 13.8 05/24/2024 HCT 40.9 (L) 05/24/2024 MCV 88.5 05/24/2024 PLT 316 05/24/2024 CHEMISTRY Lab Results Component Value Date GLUCOSE 133 (H) 2024 NA 138 05/24/2024 K 4.2 05/24/2024 CO2 24 05/24/2024 CL 107 05/24/2024 BUN 19 05/24/2024 CREATININE 0.74 05/24/2024 EGFR 96 05/24/2024 CALCIUM 9.0 05/24/2024 ANIONGAP 7 05/24/2024 Imaging: No image results found. ASSESSMENT & PLAN 73 y/o male hx of HTN, diabetes no longer on medication after wt loss who presented to [facility] left-sided weakness # Acute ischemic CVA-acute pontine CVA CTA of the head and neck no acute stroke. Echocardiogram EF of 63%, moderate aortic valve stenosis Family history of factor V Leiden lab currently pending Seen by neurology who recommended aspirin, intolerant of statin now on Zetia Per rehab team Follow-up with neurology after discharge-[facility] #Moderate aortic stenosis currently euvolemic asymptomatic monitor #History of spinal stenosis. with chronic left lower extremity weakness Patient reports chronic bowel dysfunction constipation difficulties as a result of spinal issues. At home he takes Dulcolax and MiraLAX Constipation add MiraLAX, Senokot at night may switch to Dulcolax if no result. Suppository today #Urinary frequency urgency incontinence Bladder scans Check UA/CS #Hypertension Amlodipine 5 mg BP reasonable controlled #History of diabetes Resolved after weight loss A1c 5.3 #Hyperlipidemia Intolerant of statin currently on Zetia Follow-up with PCP after discharge for ongoing monitoring #Hyperammonemia Resolved unclear significance Ultrasound of of liver no evidence of disease Lactulose was discontinued DVT prophylaxis defer to Dr. Calles DAILY CARE CHECKLIST * ERIC Carbone - 2024 11:11 AM EST Images from the original note were not included. [facility] Daily Progress Note Patient name: Bob Han : 1950 SUBJECTIVE: Patient seen and examined at bedside today. No acute events overnight. Denies headaches, dizziness,shortness of breath, chest pain, nausea, constipation, and pain. He does however state he felt really confused earlier today and he peed himself. Will order UA OBJECTIVE: Vitals: 05/25/24 1547 05/26/24 0525 05/26/24 0700 05/26/24 0749 BP: (!) 141/64 129/71 138/67 137/69 BP Location: Right arm Right arm Right arm Patient Position: Lying Lying Sitting Pulse: 73 75 81 78 Resp: 17 18 Temp: 36.8 ??C (98.2 ??F) 36.9 ??C (98.4 ??F) 37 ??C (98.6 ??F) TempSrc: Oral Oral SpO2: 95% 96% 96% Physical Examination: General: Alert, in no acute cardiopulmonary distress. Mental Status: Oriented to person, place and time. Normal affect. Head: Normocephalic. Eyes: Pupils are equal, round and reactive to light. Extraocular muscles intact. Ear, Nose and Throat: Oropharynx clear, mucous membranes moist. Ears and nose without masses, lesions or deformities. Neck: Supple, Trachea midline. Respiratory: Clear to auscultation and percussion. No wheezing, rales or rhonchi. Cardiovascular: Heart sounds normal. No thrills. Regular rate and rhythm, no murmurs, rubs or gallops. Gastrointestinal: Abdomen soft, non-tender, non-distended. Normal bowel sounds. Genitourinary: No costovertebral angle tenderness. Neurologic: Cranial nerves II-XII intact. Deep tendon reflexes +2 bilaterally. Negative Hoffmans sign bilaterally. Negative clonus bilaterally. + pronation and flexion drift of the left upper extremity with left upper extremity weakness 3+/5. Left lower extremity 5 minus/5, hyperreflexia on the left side with an extensor plantar response.Sensation intact bilaterally. Skin: No rashes or lesions. No petechiae or purpura. No edema. Musculoskeletal: No cyanosis or clubbing. No gross deformities. Normal range of motion to RUE and b/l LE. Limited rom due to weakness on LUE (3/5 strength throughout left upper extremity) CURRENT INPATIENT MEDICATIONS: Current Facility-Administered Medications: aluminum-magnesium hydroxide-simethicone (MAALOX) 200-200-20 mg/5 mL suspension 30 mL, 30 mL, oral,q4h PRN, Wen A Stevan, DO amLODIPine (NORVASC) tablet 5 mg, 5 mg, oral, Daily, Wen A Stevan, DO, 5 mg at 05/26/24817 aspirin chewable tablet 81 mg, 81 mg, oral, Daily, Wen A Stevan, DO, 81 mg at 05/26/24817 bisacodyL (DULCOLAX) suppository 10 mg, 10 mg, rectal, Daily PRN, Wen A Stevan, DO dextrose (D50W) 50% injection 12.5 g, 12.5 g, intravenous, q15 min PRN, ERIC Carbone dextrose (D50W) 50% injection 25 g, 25 g, intravenous, q15 min PRN, ERIC Carbone dextrose 15 gram/60 mL oral solution 15 g, 15 g, oral, q15 min PRN, ERIC Carbone dextrose 15 gram/60 mL oral solution 30 g, 30 g, oral, q15 min PRN, ERIC Carbone docusate sodium (COLACE) capsule 100 mg, 100 mg, oral, BID, Wen A Stevan, DO, 100 mg at 2418 ezetimibe (ZETIA) tablet 10 mg, 10 mg, oral, Daily, Wen A Stevan, DO, 10 mg at 05/26/24817 Glucagon HCl (rDNA) injection 1 mg, 1 mg, intramuscular, Once PRN, ERIC Carbone insulin lispro injection 2-12 Units, 2-12 Units, subcutaneous, TID AC, ERIC Carbone magnesium hydroxide (MILK OF MAGNESIA) 400 mg/5 mL suspension 30 mL, 30 mL, oral, Daily PRN, Wen Calles, , 30 mL at 05/26/24 0818 melatonin tablet 9 mg, 9 mg, oral, Nightly PRN, Wen Severiano Calles, DO, 9 mg at 05/25/242114 nystatin (MYCOSTATIN) 100,000 unit/gram powder, , Topical, BID, Wen Calles DO, 1 Application at 05/26/24 0819 polyethylene glycol (MIRALAX) packet 17 g, 17 g, oral, Daily, ERIC Chisholm senna (SENOKOT) tablet 17.2 mg, 2 tablet, oral, Nightly, ERIC Chisholm LABS: Lab Results Component Value Date WBC 7.5 05/24/2024 RBC 4.60 05/24/2024 HGB 13.8 05/24/2024 HCT 40.9 (L) 05/24/2024 MCV 88.5 05/24/2024 MCHC 33.7 05/24/2024 RDW 13.3 05/24/2024 PLT 316 05/24/2024 MPV 9.2 05/24/2024 NRBC 0.0 05/24/2024 DIFF Lab Results Component Value Date LYMPHOPCT 31.2 05/24/2024 NEUTROABS 3.78 05/24/2024 LYMPHSABS 2.33 05/24/2024 MONOABS 1.08 (H) 05/24/2024 EOSABS 0.15 05/24/2024 BASOSABS 0.08 05/24/2024 IMMGRANABS 0.04 (H) 05/24/2024 RETIC No results found for: RETIC , RETICCTPCT Lab Results Component Value Date NA 138 05/24/2024 K 4.2 05/24/2024 CL 107 05/24/2024 CO2 24 05/24/2024 GLUCOSE 105 (H) 2024 BUN 19 05/24/2024 CREATININE 0.74 05/24/2024 CALCIUM 9.0 05/24/2024 PROT 6.5 05/24/2024 ALBUMIN 3.0 (L) 05/24/2024 BILITOT 0.6 05/24/2024 AST 32 05/24/2024 ALT 35 05/24/2024 ALKPHOS 101 05/24/2024 EGFR 96 05/24/2024 IMPRESSION & PLAN: #Impaired mobility and self-care -Secondary to CVA -Continue with PT/OT/speech #Acute ischmic CVA #Left hemiparesis -Aspirin 81 mg daily -Ezetimibe 10 mg daily -continue therapies -f/u Neurology after discharge #Hypertension -Amlodipine 5 mg daily #DMT2 -A1C 5.3 -Diabetic diet -ISS #Lumbar spinal stenosis -will plan for follow up with [facility] after discharge for further management #Hyperammonemia, resolved -Present at [facility] on 05/17 however resolved #Bowel management -Colace 100mg BID DVT ppx: Continue Aspirin and ambulation with therapies as tolerated. SCDs to BLE when in bed. Cosigned by Wen Calles DO at 05/30/2024 8:44 AM EST Associated attestation - Wen Calles DO - 05/30/2024 8:44 AM EST Agree with progress note, assessment, and plan as documented by PA today. * Theodore Clement OT - 2024 7:00 AM EST [facility] Occupational Therapy Treatment Note 05/26/24 Patient: Bob Han : 1950 Age: 74 y.o. Gender: male Diagnosis: CVA (cerebral vascular accident) (CMS/HCC) Primary Rehab (Etiologic) Diagnosis: Patient Active Problem List Diagnosis CVA (cerebral vascular accident) (CMS/HCC) PMH: Past Medical History: Diagnosis Date HLD (hyperlipidemia) HTN (hypertension) Migraines Spinal stenosis PSH: History reviewed. No pertinent surgical history. Allergies: is allergic to acetaminophen, atorvastatin, glipizide, and rosuvastatin. Precautions: Precautions Medical Precautions: Fall Risk Safety Interventions: Call [place] within reach, ID band on, Chair alarm RUE Weight Bearing Status: Full LUE Weight Bearing Status: Full RLE Weight Bearing Status: Full LLE Weight Bearing Status: Full Vitals: BP: 138/67 Heart Rate: 81 Pain: Pt reporting pain in low back, not specified. Pain limiting standing tolerance. Subjective: having to pee this much is really discouraging me. Procedures/Interventions: ADLs/IADLs Self Care/Home Management (ADLs) Time Entry: 90 Pt in supine upon arrival, ringing [place] requesting to get out of bed. Elevated supine>Sit EOB with partial A via hand held assist for trunk uplift. Pt reporting poor nights sleep. Bedding noted dani partially soiled with urine. SPT from bed>w/c with partial A no AD. From w/c pt placed dentures in, with encouragement to use L hand, however required assistance to open container. Pt dep wheeled to shower. SPT from w/c><tub bench with UE support on grab bar partial A. Assist to hike pants down. Once seated pt able to remove from around feet. Assist to doff socks. Pt bathed mainly seated with use of hand held shower. Hand over hand for use of L UE to reach R underarm. Verbal cues for thoroughness/sequencing throughout. STS with R UE on grab bar partial A. In stand dep for posterior hygiene. Assist for bathing distal Les including feet. Once back in room pt requesting urinal. Assist to place urinal, pt able to hold. Red slit noted on scrotum, RN aware. Pt able to void small amount, dark in color, RN aware. L elbow mepilex removed due to being wet from shower, RN aware. Once back in room, BP 137/69. Pt donned T shirt with re-education on laurel dressing technique, overall max A for UB dressing. While seated, assist to thread B Les following unsuccessful attempt. Dep to don sock and boots. STS partial A, with hand over hand to position L UE on arm rest to incorporateduring STS. In stand assist to hike posteriorly and on L side. Pt ate breakfast with POST for openingcontainers. Pt reporting poor appetite. Requesting to use urinal again. One side of brief un-hookedfor easier access. Pt unable to void, RN aware. Pt requesting back to bed to rest. SPT partial A with cues for advancing L LE. Partial A for controlled sit. Sit>Supine partial A for B Les. Pt in el evated supine with bed alarm on and call houston in reach. RN present for medication administration. Pt's Shorts hiked down, and one side of brief un- hooked for easier urinal management, PCT aware. OT Assessment OT Assessment OT Assessment Results: Decreased ADL status, Decreased upper extremity range of motion, Decreased upper extremity strength, Decreased endurance, Decreased fine motor control, Decreased functional mobility, Decreased IADLs, Decreased gross motor control, Non-functional left upper extremity Prognosis: Good Evaluation/Treatment Tolerance: Pt reports feeling off today due to waking up in middle of night feeling disoriented. Encouragement throughout ADL for involvement of L UE to increase functional use. L UE appears to have tone, however when passively range no/limited tone felt in Elbow, Pt also reports that elbow unable to reach 0 degrees ROM at baseline. Pt discouraged about situation and need for frequent urination, support provided throughout. OT Plan Plan Treatment Interventions: ADL retraining, Functional transfer training, UE strengthening/ROM, Endurance training, Patient/family training, Equipment evaluation/education, Neuromuscular reeducation, Fine motor coordination activities, Compensatory technique education OT Plan: Skilled OT OT Frequency : 5-7 days per week OT Duration of Sessions: 60-90 min per session OT Treatments per day: 1-2 times per day OT - Evaluation Status: Complete Equipment Recommended: (TBD) Goals: Encounter Problems Encounter Problems (Active) Template: Occupational Therapy Problem: OT Group Home Goals Dates: Start: 05/24/24 Goal: pt will be IND with lower body dressing AE PRN Dates: Start: 05/24/24 Expected End: 06/14/24 Goal: pt will be IND with upper body dressing Dates: Start: 05/24/24 Expected End: 06/14/24 Goal: pt will be IND with toilet txfer LRAD Dates: Start: 05/24/24 Expected End: 06/14/24 Goal: pt will ne IND with toileting tasks LRAD Dates: Start: 05/24/24 Expected End: 06/14/24 Goal: pt will be IND with footwear tasks AE PRN Dates: Start: 05/24/24 Expected End: 06/14/24 Problem: OT Short Term Goals Dates: Start: 05/24/24 Goal: Pt will be mod assist with upper body dressing Dates: Start: 05/24/24 Expected End: 05/31/24 Goal: Pt will me max assist with lower body dressing AE PRN Dates: Start: 05/24/24 Expected End: 05/31/24 Goal: Pt will be max assist with footwear AE PRN Dates: Start: 05/24/24 Expected End: 05/31/24 Goal: pt will be mod assist toilet txfer LRAD Dates: Start: 05/24/24 Expected End: 05/31/24 Goal: pt will be max assist with toileting tasks Dates: Start: 05/24/24 Expected End: 05/31/24 Encounter Problems (Resolved) There are no resolved problems. Education Documentation Skin Management, taught by Theodore Clement OT at 2024 11:53 AM. Learner: Patient Readiness: Acceptance Method: Explanation, Demonstration Response: Verbalizes Understanding, Demonstrated Understanding, Needs Reinforcement Activity/Positioning, taught by Theodore Clement OT at 2024 11:53 AM. Learner: Patient Readiness: Acceptance Method: Explanation, Demonstration Response: Verbalizes Understanding, Demonstrated Understanding, Needs Reinforcement Body Mechanics, taught by Theodore Clement OT at 2024 11:53 AM. Learner: Patient Readiness: Acceptance Method: Explanation, Demonstration Response: Verbalizes Understanding, Demonstrated Understanding, Needs Reinforcement ADL Training, taught by Theodore Clement OT at 2024 11:53 AM. Learner: Patient Readiness: Acceptance Method: Explanation, Demonstration Response: Verbalizes Understanding, Demonstrated Understanding, Needs Reinforcement Teach perineal skin care, taught by Theodore Clement OT at 2024 11:53 AM. Learner: Patient Readiness: Acceptance Method: Explanation, Demonstration Response: Verbalizes Understanding, Demonstrated Understanding, Needs Reinforcement Education Comments No comments found. Start/Stop Time OT Time Calculation OT Start Time: 0700 OT Stop Time: 0830 OT Time Calculation (min): 90 min Therapy Minutes: Occupational Therapy OT Individual: 90 * Samy Esteban LCSW - 05/25/2024 3:55 PM EST Team Meeting: Met with pt at bedside to review post team recommendations. Discussed 3-4 week goals with 23 tentative medicare approval days. Discussed tentative discharge set for Thursday 06/15 to be MOD I. Discussed the recommendation to follow up with Outpatient PT OT and [facility]. Pt in agreement with plan. Pt is eager to get back to being independent. Discussed OP rehab, pt is in agreement for [facility] OP Day Rehab. Dr. Calles to place referral. Pt states his spouse Larry can provide transportation. Pt gave permission to update Larry. Call placed to Larry. Updated Larry on tentative discharge date and services pending insurance approval, participation and progress. Larry in agreement with plan and will provide transportation to follow up appointments. Updated Larry on pts current level of function. Dependent toileting, LB. Max assist UB. Max for transfers. Max assist walking 10 ft with quad cane. Max assist 4 stairs. Peter aware goals are to be MOD I. Pt and Larry had no further questions at this time. * Mirlande Aquino, PT - 05/25/2024 2:55 PM EST [facility] Physical Therapy Treatment Note 05/25/2024 Patient: Bob Han : 1950 Age: 73 y.o. Gender: male Primary Language: Argentine Diagnosis: CVA (cerebral vascular accident) ([facility]) Past Medical History: Diagnosis Date HLD (hyperlipidemia) HTN (hypertension) Migraines Spinal stenosis History reviewed. No pertinent surgical history. Allergies: is allergic to acetaminophen, atorvastatin, glipizide, and rosuvastatin. Precautions: Medical Precautions: Fall Risk Safety Interventions: Call [place] within reach, ID band on, Chair alarm RUE Weight Bearing Status: Full LUE Weight Bearing Status: Full RLE Weight Bearing Status: Full LLE Weight Bearing Status: Full NURSING RECOMMENDATIONS Bed Mobility: Transfers: Ambulation: SUBJECTIVE Pt report: I'm good. Pain:0/10 OBJECTIVE General Observation: Seated in WC agreeable to participating in therapy session. Procedure/Treatment: Therapeutic Activities: Therapeutic Activity Time Entry: 90 Pt seated in WC, agreeable to participating in therapy session. Pt dep. Brought down to therapy gymin . Pt needing partial A x1 to laurel-bar, pt ambulating 3x10 with RUE support with step to pattern, pt needing partial A for ambulation. Decreased step length with step to pattern, when ambulating backwards, partial A x1 for balance. Pt and therapist discussing toileting schedule d/t urgency and i ncontinence. Pt completed split stance standing x3 attempts with RLE on 3 inch step, to improve WB on LLE. Pt needing partial A for STS and partial A for balance upon standing, cues for knee extension. Pt completed WC mobility back to room partial A for steering. Pt needing partial A x1 for stand pivot transfer from to toilet, pt voiding urine, pt partial A for stand pivot transfer back to .Pt left seated in , call [place] in reach, chair alarm on, all needs met. Education: Education Documentation Mobility Training, taught by Mirlande Aquino, PT at 05/25/2024 3:51 PM. Learner: Patient Readiness: Acceptance Method: Explanation, Demonstration Response: Verbalizes Understanding, Demonstrated Understanding Comment: impaired standing balance, impaired LE strength. Education Comments No comments found. ASSESSMENT Pt to benefit from continued education on toileting program. Pts standing tolerance limited secondary d/t impaired LE endurance. PT Assessment PT Assessment Results: Decreased strength, Decreased range of motion, Decreased endurance, Impairedbalance, Impaired gait Prognosis: Good Equipment: TBD Plan of Care Plan Treatment/Interventions: Functional transfer training, LE strengthening/ROM, Endurance training, Cognitive reorientation, Bed mobility, Gait training, Balance training, Continued evaluation, Compensatory technique education PT Plan: Skilled PT PT Frequency: 5-7 days per week PT Duration of Sessions: 60-90 min per session PT Treatments per day: 1 time per day PT Discharge Recommendations: Other (Comment) (TBD) Problems/Goals Goals: Encounter Problems Encounter Problems (Active) Template: Physical Therapy Problem: PT Group Home Goals Dates: Start: 05/24/24 Goal: mod-I ambulation x150ft Dates: Start: 05/24/24 Goal: mod-I x12 stairs unilat. railing Dates: Start: 05/24/24 Goal: mod-I bed mobility Dates: Start: 05/24/24 Goal: mod-I transfers Dates: Start: 05/24/24 Problem: PT Short Term Goals Dates: Start: 05/24/24 Goal: SUP bed mobility Dates: Start: 05/24/24 Goal: partial A transfers LRAD Dates: Start: 05/24/24 Goal: partial A x50ft LRAD ambulation Dates: Start: 05/24/24 Goal: partial A x4 stairs Dates: Start: 05/24/24 Encounter Problems (Resolved) There are no resolved problems. Session Start/Stop Time: 1415 1545 Therapy Minutes Physical Therapy PT Individual: 90 * ERIC Chisholm - 05/25/2024 1:12 PM EST Images from the original note were not included. SUSU PROGRESS NOTE Date: 05/25/2024 Author: ERIC Chisholm Patient ID: Bob Han is a 73 y.o. male : 1950 MR#: [id number] SUBJECTIVE Subjective Patient seen he reports that he is improving his left upper extremity is getting stronger. He feelspositive and motivated to get better. He would like to return home as soon as possible. ROS Constitutional :no fever chills , appetite fair, sleeping well HEENT: denies headaches Respiratory: denies shortness of breath, coughing or wheezing Cardiac: denies chest pain, palpitations, : No abd pain, no N/V. Genitourinary: denies any dysuria frequency urgency Musculoskeletal: Arthritic pain to his joints chronic back pain Allergies Acetaminophen, Atorvastatin, Glipizide, and Rosuvastatin Current Medications: amLODIPine, 5 mg, oral, Daily aspirin, 81 mg, oral, Daily docusate sodium, 100 mg, oral, BID ezetimibe, 10 mg, oral, Daily insulin lispro, 2-12 Units, subcutaneous, TID AC nystatin, , Topical, BID PRN medications: aluminum-magnesium hydroxide-simethicone, bisacodyL, dextrose 50%, dextrose 50%, dextrose, dextrose, glucagon injection, magnesium hydroxide, melatonin OBJECTIVE Vitals: 05/24/24 1529 05/25/24 0059 05/25/24 0115 05/25/24 0700 BP: (!) 144/64 (!) 111/38 (!) 151/69 134/53 BP Location: Right arm Right arm Right arm Patient Position: Lying Lying Lying Pulse: 62 61 62 57 Resp: Temp: 36.4 ??C (97.5 ??F) 36.5 ??C (97.7 ??F) TempSrc: Oral SpO2: 97% 94% 95% PHYSICAL EXAM General: conscious alert no acute distress HEENT: pupils are equal round and reactive. extraocular movements are grossly intact lungs clear to auscultation, no wheezing or crackles noted heart regular rate and rhythm, no murmur or rubs abdomen soft nontender nondistended positive bowel sounds Musculoskeletal: No gross deformity to joints extremities without edema, erythema or calf tenderness neuro: Left sided weakness mostly to the left upper extremity skin: no rashes or lesions. psych: mood stable appearing, good eye contact. LABS HEMATOLOGY Lab Results Component Value Date WBC 7.5 05/24/2024 HGB 13.8 05/24/2024 HCT 40.9 (L) 05/24/2024 MCV 88.5 05/24/2024 PLT 316 05/24/2024 CHEMISTRY Lab Results Component Value Date GLUCOSE 115 (H) 05/25/2024 NA 138 05/24/2024 K 4.2 05/24/2024 CO2 24 05/24/2024 CL 107 05/24/2024 BUN 19 05/24/2024 CREATININE 0.74 05/24/2024 EGFR 96 05/24/2024 CALCIUM 9.0 05/24/2024 ANIONGAP 7 05/24/2024 Imaging: No image results found. ASSESSMENT & PLAN 73 y/o male hx of HTN, diabetes no longer on medication after wt loss who presented to [facility] left-sided weakness # Acute ischemic CVA-acute pontine CVA CTA of the head and neck no acute stroke. Echocardiogram EF of 63%, moderate aortic valve stenosis Family history of factor V Leiden lab currently pending Seen by neurology who recommended aspirin, intolerant of statin now on Zetia Per rehab team Follow-up with neurology after discharge-[facility] #Moderate aortic stenosis currently euvolemic asymptomatic monitor #History of spinal stenosis. with chronic left lower extremity weakness #Hypertension Amlodipine 5 mg BP reasonable controlled #History of diabetes Resolved after weight loss A1c 5.3 #Hyperlipidemia Intolerant of statin currently on Zetia Follow-up with PCP after discharge for ongoing monitoring #Hyperammonemia Resolved unclear significance Ultrasound of of liver no evidence of disease Lactulose was discontinued DVT prophylaxis defer to Dr. Calles DAILY CARE CHECKLIST Cosigned by Bhupinder Jara MD at 05/31/2024 11:01 AM EST * Wen Calles DO - 05/25/2024 1:11 PM EST Images from the original note were not included. PHYSICAL MEDICINE AND REHABILITATION Individualized Overall Plan of Care Patient Name: Bob Han Date of : 1950 Sex: Male Payor Info: Payor: JONI MEDICARE ADVANTAGE / Plan: AET MEDICARE ADVANTAGE / Product Type: *No Product type* / Admit Date/Time: 05/23/2024 4:44 PM Etiologic Diagnosis: Acute CVA with left hemiparesis Rehab Impairment Group Code: 01.1 stroke, left body involvement, right brain Expected LOS/Duration of Therapy: 3 weeks Expected Discharge Destination: Home with home health services Medical Prognosis: Good Medical Issues Actively Being Managed: Acute ischemic CVA, left hemiparesis, hypertension, diabetes mellitus type 2 Rehab Plan: Minimum of 180 minutes of therapy 5 out of 7 days per week as follows: 60 minutes of PT daily for 5 days. 60 minutes of OT daily for 5 days. 60 minutes of [facility] daily for 5 days. Anticipated Functional Outcomes/Rehab Goals: Goals are for the patient to achieve the highest level of function and independence to allow the patient to return home. The patient and the family will be provided education on the patient's condition, the patient's current barriers, and the goals to overcome or to compensate for barriers. * Wen Calles, DO - 05/25/2024 11:19 AM EST Images from the original note were not included. [facility] Daily Progress Note Patient name: Bob Han : 1950 SUBJECTIVE: Patient seen and examined at bedside today. No acute events overnight. Denies headaches, dizziness,shortness of breath, chest pain, nausea, constipation, and pain. Reports that left upper extremity strength is improving. TEAM CONFERENCE: I was present and participated in team meeting today. I agree with team conferenceplan as documented in alternate note today. Please refer to team conference note for further details. OBJECTIVE: Vitals: 05/24/24 1529 05/25/24 0059 05/25/24 0115 05/25/24 0700 BP: (!) 144/64 (!) 111/38 (!) 151/69 134/53 BP Location: Right arm Right arm Right arm Patient Position: Lying Lying Lying Pulse: 62 61 62 57 Resp: 17 17 Temp: 36.4 ??C (97.5 ??F) 36.5 ??C (97.7 ??F) TempSrc: Oral SpO2: 97% 94% 95% Physical Examination: General: Alert, in no acute cardiopulmonary distress. Mental Status: Oriented to person, place and time. Normal affect. Head: Normocephalic. Eyes: Pupils are equal, round and reactive to light. Extraocular muscles intact. Ear, Nose and Throat: Oropharynx clear, mucous membranes moist. Ears and nose without masses, lesions or deformities. Neck: Supple, Trachea midline. Respiratory: Clear to auscultation and percussion. No wheezing, rales or rhonchi. Cardiovascular: Heart sounds normal. No thrills. Regular rate and rhythm, no murmurs, rubs or gallops. Gastrointestinal: Abdomen soft, non-tender, non-distended. Normal bowel sounds. Genitourinary: No costovertebral angle tenderness. Neurologic: Cranial nerves II-XII intact. Deep tendon reflexes +2 bilaterally. Negative Hoffmans sign bilaterally. Negative clonus bilaterally. + pronation and flexion drift of the left upper extremity with left upper extremity weakness 3+/5. Left lower extremity 5 minus/5, hyperreflexia on the left side with an extensor plantar response.Sensation intact bilaterally. Skin: No rashes or lesions. No petechiae or purpura. No edema. Musculoskeletal: No cyanosis or clubbing. No gross deformities. Normal range of motion to RUE and b/l LE. Limited rom due to weakness on LUE (3/5 strength throughout left upper extremity) CURRENT INPATIENT MEDICATIONS: Current Facility-Administered Medications: aluminum-magnesium hydroxide-simethicone (MAALOX) 200-200-20 mg/5 mL suspension 30 mL, 30 mL, oral,q4h PRN, Wen A Stevan, DO amLODIPine (NORVASC) tablet 5 mg, 5 mg, oral, Daily, Wen A Stevan, DO, 5 mg at 05/25/24 09 aspirin chewable tablet 81 mg, 81 mg, oral, Daily, Wen A Stevan, DO, 81 mg at 05/25/24 0939 bisacodyL (DULCOLAX) suppository 10 mg, 10 mg, rectal, Daily PRN, Wen A Stevan, DO dextrose (D50W) 50% injection 12.5 g, 12.5 g, intravenous, q15 min PRN, ERIC Carbone dextrose (D50W) 50% injection 25 g, 25 g, intravenous, q15 min PRN, Tahmina Hanna, ERIC dextrose 15 gram/60 mL oral solution 15 g, 15 g, oral, q15 min PRN, Tahmina Hanna, ERIC dextrose 15 gram/60 mL oral solution 30 g, 30 g, oral, q15 min PRN, ERIC Carbone docusate sodium (COLACE) capsule 100 mg, 100 mg, oral, BID, Wen A Stevan, DO, 100 mg at 05/25/24 0939 ezetimibe (ZETIA) tablet 10 mg, 10 mg, oral, Daily, Wen A Stevan, DO, 10 mg at 05/25/24 0940 Glucagon HCl (rDNA) injection 1 mg, 1 mg, intramuscular, Once PRN, ERIC Carbone insulin lispro injection 2-12 Units, 2-12 Units, subcutaneous, TID AC, ERIC Carbone magnesium hydroxide (MILK OF MAGNESIA) 400 mg/5 mL suspension 30 mL, 30 mL, oral, Daily PRN, Wen Calles DO melatonin tablet 9 mg, 9 mg, oral, Nightly PRN, Wen Calles DO, 9 mg at 05/24/242113 nystatin (MYCOSTATIN) 100,000 unit/gram powder, , Topical, BID, Wen Calles DO LABS: Lab Results Component Value Date WBC 7.5 05/24/2024 RBC 4.60 05/24/2024 HGB 13.8 05/24/2024 HCT 40.9 (L) 05/24/2024 MCV 88.5 05/24/2024 MCHC 33.7 05/24/2024 RDW 13.3 05/24/2024 PLT 316 05/24/2024 MPV 9.2 05/24/2024 NRBC 0.0 05/24/2024 DIFF Lab Results Component Value Date LYMPHOPCT 31.2 05/24/2024 NEUTROABS 3.78 05/24/2024 LYMPHSABS 2.33 05/24/2024 MONOABS 1.08 (H) 05/24/2024 EOSABS 0.15 05/24/2024 BASOSABS 0.08 05/24/2024 IMMGRANABS 0.04 (H) 05/24/2024 RETIC No results found for: RETIC , RETICCTPCT Lab Results Component Value Date NA 138 05/24/2024 K 4.2 05/24/2024 CL 107 05/24/2024 CO2 24 05/24/2024 GLUCOSE 96 05/25/2024 BUN 19 05/24/2024 CREATININE 0.74 05/24/2024 CALCIUM 9.0 05/24/2024 PROT 6.5 05/24/2024 ALBUMIN 3.0 (L) 05/24/2024 BILITOT 0.6 05/24/2024 AST 32 05/24/2024 ALT 35 05/24/2024 ALKPHOS 101 05/24/2024 EGFR 96 05/24/2024 IMPRESSION & PLAN: #Impaired mobility and self-care -Secondary to CVA -Continue with PT/OT/speech #Acute ischmic CVA #Left hemiparesis -Aspirin 81 mg daily -Ezetimibe 10 mg daily -continue therapies -f/u Neurology after discharge #Hypertension -Amlodipine 5 mg daily #DMT2 -A1C 5.3 -Diabetic diet -ISS #Lumbar spinal stenosis -will plan for follow up with [facility] after discharge for further management #Hyperammonemia, resolved -Present at [facility] on 05/17 however resolved #Bowel management -Colace 100mg BID DVT ppx: Continue Aspirin and ambulation with therapies as tolerated. SCDs to BLE when in bed. * Shakila Hernandez - 05/25/2024 10:30 AM EST Social Work Note Integrated Pail Bailer: DX: Adjustment DO: Met with patient this morning, he was sitting in his chair. Introduced self and the services, and was able to assess the patients mood and behaviors. Patient denied any SI or self harm thoughts or behaviors. He also expressed that he does not have a HX of depression or anxiety but was very emotional during the assessment and he connects that to the stroke. He did report to the speech therapist that he remembers having a break down when he was working on the [employer] [place]. He is hoping that he will be allowed to go home soon to his spouse. He does have help at home he reports. When asking if he wanted medication intervention to help stabilize his moods he expressed that he will be okay he does not like to add more medication at this time. Will follow and monitor. Shakila Hernandez MS Clinician * Jana Jimenez, LORNE - 05/25/2024 9:30 AM EST Speech Language Pathology Speech Language Pathology Treatment Subjective BULK FLUIDS HANDLER Start Time: 929 BULK FLUIDS HANDLER Stop Time: 0 BULK FLUIDS HANDLER Time Calculation (min): 60 min Subjective: Pt agreeable to ST. Vitals/Pain Pt did not report pain. Objective General Visit Info General Family/Caregiver Present: No Treatment Cognitive Skills Therapeutic Interventions Cognitive Skills Direct Contact Time Entry: 60 Other Cognitive Skills Activity: CLQT subtests. Extensive discussion re: SO managing iADLs and external memory strategy use at home. Pt reports they have a shared calendar for appointments. Pt reiterated SO manages medications. Cognitive Skills Comments: Pt reporting hyperverbalization/interruptions are so Pt can 'keep track of information' d/t STM deficits. Pt often required redirections back to task throughout session. Cognitive-Linguistic skills were formally assessed using the Cognitive Linguistic Quick Test (CLQT). The CLQT assesses strengths and weaknesses in five cognitive domains (Attention, Memory, ExecutiveFunctions, Language, and Visuospatial Skills). CLQT is for use with adults with known or suspected neurological dysfunction. Subtests Administered Raw Score Personal Facts No N/A Symbol Cancellation No N/A Confrontation Naming No N/A Clock Drawing Yes 9 Story Retelling No N/A Symbol Trails Yes 3 Generative Naming No N/A Design Memory Yes 4 Mazes Yes 4 Design Generation Yes 5 Interpretation of Test Results: Unable to determine formal scores and impairment severity as Pt didnot complete all sub tests. However, Pt demonstrating deficits with planning, self monitoring, working memory, visual attention and mental flexibility. Comments: Goals updated. Comments Comments: x2 word finding difficulty noted during conversation. Pt has goals of being able to take walks again. Discussed cognitive limitations that are barriers, specifically with memory. Recommend tasks related to following maps/trails, consider taking Pt to other part of hospital to recall way back to room. Assessment/Plan BULK FLUIDS HANDLER Assessment Evaluation/Treatment Tolerance: Patient tolerated treatment well Comments: Pt extremely tearful towards end of session re: recent changes d/t stroke, concern with spinal stenosis and plans for d/c. Provided reassurance and comfort to Pt. Shyann notified of Pt concerns. Medical Staff Made Aware: Yes Comments: Shyann notified of Pt concerns. Plan Treatment/Interventions: Cognitive linguistic functioning BULK FLUIDS HANDLER Plan: Skilled BULK FLUIDS HANDLER BULK FLUIDS HANDLER Frequency: 5-7 days per week BULK FLUIDS HANDLER Duration of Sessions: 30-60 min per session BULK FLUIDS HANDLER Treatments per day: 1 time per day BULK FLUIDS HANDLER Discharge Recommendations: Home BULK FLUIDS HANDLER BULK FLUIDS HANDLER - Next Appointment: 05/26/24 Goals Encounter Problems Encounter Problems (Active) Template: Speech Therapy Problem: BULK FLUIDS HANDLER Group Home Goals Dates: Start: 05/24/24 Goal: Pt will improve cognitive linguistic skills to maximize indp for safe d/c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 resolved problems. Cosigned by LORNE Rodriguez at 05/24/2024 2:49 PM EST Associated attestation - Corina Curran SLP - 05/24/2024 2:49 PM EST I attest that I, Coby Curran M.S.,[facility]-BULK FLUIDS HANDLER, was physically involved in the ongoing assessment, decision making, and interventions provided during today's patient care session. I have reviewed all documentation for today's 05/24/24, entered by Speech Therapy Fellow, Jana Cesar, and further attest that it is an accurate clinical record of today's encounter, including accurate and appropriate charges. * Coby Aleman, OT - 05/24/2024 7:00 AM EST [facility] Occupational Therapy Evaluation Note 05/24/24 Patient: Bob Han : 1950 Age: 73 y.o. Gender: male Primary Language: Argentine Diagnosis: CVA (cerebral vascular accident) ([facility]) Modified [place] Score: 4 - Moderately severe disability. Unable to attend to own bodily needs without assistance or unable to walk unassisted. Primary Rehab (Etiologic) Diagnosis: Patient Active Problem List Diagnosis CVA (cerebral vascular accident) ([facility]/HCC) PMH: Past Medical History: Diagnosis Date HLD (hyperlipidemia) HTN (hypertension) Migraines Spinal stenosis PSH: History reviewed. No pertinent surgical history. Allergies: is allergic to acetaminophen, atorvastatin, glipizide, and rosuvastatin. Precautions: Precautions Medical Precautions: Fall Risk Safety Interventions: Call [place] within reach, ID band on, Chair alarm RUE Weight Bearing Status: Full LUE Weight Bearing Status: Full RLE Weight Bearing Status: Full LLE Weight Bearing Status: Full NURSING RECOMMENDATIONS ADL Comments: SUBJECTIVE Patient Subjective: I'll try my best Home Living: Type of Home: (two family) Lives With: Spouse Home Adaptive Equipment: Cane Home Layout: Two level, Bed/bath upstairs, 1/2 bath on main level Home Access: Stairs to enter with rails Entrance Stairs-Rails: (pt unable to recall stair set up) Entrance Stairs-Number of Steps: 3 Bathroom Shower/Tub: Tub/shower unit Bathroom Toilet: Standard Bathroom Equipment: Grab bars in shower Bathroom Accessibility: 2nd floor Prior Level of Function: Level of [place]: Independent with mobility and functional transfers Ambulation Status: Community ambulator, Household ambulator Receives Help From: Family Indoor Mobility Assistance: Independent Stairs Assistance : Independent Prior Device Use: No prior device use Do you drive?: Yes Mode of Transportation: Car Which is your dominant hand?: Right ADL/IADL History: ADL Assistance (Self Care): Independent Homemaking Assistance (Functional Cognition): Independent Occupation: Retired (worked for the [employer] for 30+ years) Leisure and Hobbies: hiking, walking Social History: Social History Tobacco Use Smoking status: Every Day Types: Pipe Passive exposure: Past Tobacco comments: 50 + years smoking pipe (Nicotine); denies need for Nicotine patch. Vaping Use Vaping status: Never Used Substance Use Topics Alcohol use: Not Currently Drug use: Never Understanding of Current Condition: yes OBJECTIVE General Observation: Upon approach, pt semi supine in bed agreeable to participate in session. Pt alert and oriented x4. Pt able to follow all multi- step commands t/o session. Pt very motivated to participate in session and improve overall functional status. Cognition/Communication: Cognition Overall Cognitive Status: Within Functional Limits Arousal/Alertness: Appropriate responses to stimuli Orientation Level: Oriented X4 Following Commands: Follows all commands and directions without difficulty Safety Judgment: Good awareness of safety precautions Memory: Appears intact Insight: Within function limits Vitals: BP: 131/51 Heart Rate: 55 SpO2: 95 % Pain: Pain Assessment: No/denies pain Pain Score: 0 - No pain Skin: refer to nursing assessment FUNCTIONAL ASSESSMENTS ADL ASSIST Eating Assistance Needed: Supervision Oral Hygiene Oral Hygiene Assistance Needed: Supervision Physical Assistance Level: No physical assistance CARE Score - Oral Hygiene: 4 Toileting Toileting Hygiene Assistance Needed: Physical assistance Physical Assistance Level: Total assistance CARE Score - Toileting Hygiene: 1 Bathing Shower/Bathe Self Assistance Needed: Physical assistance Physical Assistance Level: 76% or more CARE Score - Shower/Bathe Self: 2 UE Dressing Upper Body Dressing Assistance Needed: Physical assistance Physical Assistance Level: 51%-75% CARE Score - Upper Body Dressin LE Dressing Lower Body Dressing Assistance Needed: Physical assistance Physical Assistance Level: Total assistance CARE Score - Lower Body Dressin Footwear Putting On/Taking Off Footwear Assistance Needed: Physical assistance Physical Assistance Level: Total assistance CARE Score - Putting On/Taking Off Footwear: 1 Toilet Transfer Assistance Needed: Physical assistance Tub/Shower Transfer Tub/Shower Transfer Assistance: Not attempted, medical/safety concerns Equipment Provided: Vision: Vision - Complex Assessment Tracking: Able to track stimulus in all quads without difficulty Visual Cannon: No apparent deficits Perception: Perception Inattention/Neglect: Appears intact Initiation: Appears intact Proprioception: Sensation: Sensation Light Touch: No apparent deficits Hand Function: Hand Function Gross Grasp: Impaired Coordination: Coordination Coordination: Impaired Balance: Static sitting balance Static Sitting Balance Static Sitting-Level of Assistance: Supervision Dynamic sitting balance Static standing balance Dynamic standing balance UPPER EXTREMITY ASSESSMENTS RUE Assessment RUE Assessment: Within Functional Limits LUE Assessment LUE Assessment: Impaired LUE Assessment Comments: (2+/5 L UE shoulder flexion) STANDARDIZED TESTS Right Hand Strength - Crm Administrator (lbs) Handle Setting 1: 64 lbs Right Hand Strength - Pinch (lbs) Lateral: 13 lbs Tip (2 point): 13 lbs Three Jaw Ayaz: 11.6 lbs Left Hand Strength - Crm Administrator (lbs) Handle Setting 1: 0 lbs Handle Setting 2: 0 lbs Handle Setting 3: 0 lbs Left Hand Strength - Pinch (lbs) Lateral: 0 lbs Tip (3 point): 0 lbs Three Jaw Ayaz: 0 lbs 9 Hole Peg Test (seconds) Right - 9 Hole Peg Test (seconds): 54.72 seconds Left - 9 Hole Peg Test (seconds): 0 seconds Modified Hema (mRS) Modified [place] Score: Moderately severe disability. Unable to attend to own bodily needs without assistance or unable to walk unassisted. Quality Indicators Scoring CAM Scoring Admit: Is there evidence of an acute change in mental status from the patient's baseline?: No (05/24/24799 : Coby Aleman OT) Inattention: Behavior not present (05/24/24799 : Coby Aleman OT) Disorganized thinking: Behavior not present (05/24/24799 : Coby Aleman OT) Altered level of consciousness: Behavior not present (05/24/24799 : Coby Aleman OT) BIMS: 15 (05/24/24799 : Coby Aleman OT) Hearing, Speech, and Vision: Hearing, Speech, and Vision Ability to Hear: Minimal difficulty Ability to See in Adequate Light: Impaired Expression of Ideas and Wants: Some difficulty Understanding Verbal and Non-Verbal Content: Usually understands Health Literacy: Health Literacy How often do you need to have someone help you when you read instructions, pamphlets, or other written material from your doctor or pharmacy?: Never Procedures/Interventions: 05/24/24 0703 OT Last Visit OT Received On 05/24/24 General Family/Caregiver Present No OT Time Calculation OT Start Time 07 OT Stop Time 0830 OT Time Calculation (min) 90 min Precautions Medical Precautions Fall Risk Safety Interventions Call [place] within reach;ID band on;Chair alarm RUE Weight Bearing Status Full LUE Weight Bearing Status Full RLE Weight Bearing Status Full LLE Weight Bearing Status Full Vital Signs Heart Rate 55 BP 131/51 MAP (Calculated) 78 mm Hg BP Method Automatic BP Location Right arm SpO2 95 % Oxygen Therapy Pulse Oximetry Type Intermittent Pulse Oximetry Location Finger Patient Activity At rest Pain Assessment Pain Assessment No/denies pain Pain Score 0 - No pain Home Living Lives With Spouse () Home Adaptive Equipment Cane (however was not using it at baseline) Home Layout multi level;1/2 bath on main level;Bed/bath upstairs on 3rd floor (workshop in basement). Home Access Stairs to enter with rails Entrance Stairs-Rails Rail on the left going up Entrance Stairs-Number of Steps 3 Bathroom Shower/Tub Tub/shower unit (without seat) Bathroom Toilet Standard Bathroom Equipment Grab bars in shower Bathroom Accessibility Prior Function Level of [place] Independent with mobility and functional transfers Ambulation Status Household ambulator;Community ambulator Receives Help From Family Indoor Mobility Assistance Independent Stairs Assistance Independent Prior Device Use No prior device use Do you drive? Yes Mode of Transportation Car Which is your dominant hand? Right ADL/IADL History ADL Assistance (Self Care) Independent Homemaking Assistance (Functional Cognition) Independent Occupation Retired (worked for the [employer] for 30+ years) Leisure and Hobbies hiking, walking ADL Eating Assistance Supervision Grooming Assistance Supervision Oral Hygiene Assistance Supervision Bathing Assistance Maximum assistance (assistance with cleansing izzy LE's, pereinal area, buttocks, R UE, L armpit) UE Dressing Assistance Maximum assistance (pt able to thread R UE, assistance with all other tasks) LE Dressing Assistance Dependent (assistance with all tasks) Footwear Assistance Dependent (assistance with all tasks including donning sneakers and fastening sneakers) Toileting Assistance Dependent (assistance with all tasks) Bed Mobility Lying to Sitting Assistance Maximum assistance (assistance with trunk support and lifting izzy LEs) Functional Transfers Chair/Bed to Chair/Bed Assistance Maximum assistance (assistnace with lifting and lowering squat pivot txfer) Toilet Transfer Assistance Maximum assistance (assistance with lifting and lowering) Tub/Shower Transfer Assistance Not attempted, medical/safety concerns Activity Tolerance Endurance Endurance does not limit participation in activity Static Sitting Balance Static Sitting-Level of Assistance Supervision Cognition Overall Cognitive Status WFL Arousal/Alertness Appropriate responses to stimuli Orientation Level Oriented X4 Following Commands Follows all commands and directions without difficulty Safety Judgment Good awareness of safety precautions Memory Appears intact Insight WFL Vision - Basic Assessment Current Vision Wears glasses all the time Vision - Complex Assessment Tracking Able to track stimulus in all quads without difficulty Visual Cannon No apparent deficits Perception Inattention/Neglect Appears intact Initiation Appears intact Sensation Light Touch No apparent deficits Hand Function Gross Grasp Impaired Right Hand Strength - Crm Administrator (lbs) Handle Setting 1 64 lbs Right Hand Strength - Pinch (lbs) Lateral 13 lbs Tip (2 point) 13 lbs Three Jaw Ayaz 11.6 lbs Left Hand Strength - Crm Administrator (lbs) Handle Setting 1 0 lbs Handle Setting 2 0 lbs Handle Setting 3 0 lbs Left Hand Strength - Pinch (lbs) Lateral 0 lbs Tip (3 point) 0 lbs Three Jaw Ayaz 0 lbs Coordination Coordination Impaired 9 Hole Peg Test (seconds) Right - 9 Hole Peg Test (seconds) 54.72 seconds Left - 9 Hole Peg Test (seconds) 0 seconds RUE Assessment RUE Assessment Within Functional Limits LUE Assessment LUE Assessment Impaired LUE Assessment Comments (2+/5 L UE shoulder flexion) RLE Assessment RLE Assessment Within Functional Limits LLE Assessment LLE Assessment Impaired OT Assessment OT Assessment Results Decreased ADL status;Decreased upper extremity range of motion;Decreased upper extremity strength;Decreased endurance;Decreased fine motor control;Decreased functional mobility;Decreased IADLs;Decreased gross motor control;Non-functional left upper extremity Prognosis Good Evaluation/Treatment Tolerance Patient tolerated treatment well Medical Staff Made Aware Yes Plan Treatment Interventions ADL retraining;Functional transfer training;UE strengthening/ROM;Endurance training;Patient/family training;Equipment evaluation/education;Neuromuscular reeducation;Fine motorcoordination activities;Compensatory technique education OT Plan Skilled OT OT Frequency 5-7 days per week OT Duration of Sessions 60-90 min per session OT Treatments per day 1-2 times per day OT - Evaluation Status Complete Equipment Recommended (TBD) OT Evaluation Time Entry OT Evaluation (Moderate) Time Entry 90 Pt seen this AM for skilled OT ADL evaluation session. Upon approach, pt semi supine in bed. Pt pleasant and agreeable to participate in session. Pt alert and oriented x4. Pt completed bed mobility with max assist to lift izzy LE's and trunk support. Pt sat EOB to complete sponge bath with max assist requiring OT assistance with cleansing izzy LE's, pereinal area, buttocks, R UE, L armpit. Pt completed upper body dressing tasks seated EOB with max assist, pt able to thread R UE into shirt howeverrequired assistance with all other tasks. Pt completed lower body dressing tasks with total assist.Pt completed footwear with total assist sitting EOB. Pt completed squat pivot txfer to w/c to R side with max assist for lifting and lowering assistance. Pt completed w/c><toilet txfer with maxassist for lifting and lowering assistance. Pt total assist with toileting tasks. Pt completed oralhygiene seated In w/c at sink with supervision for safety with task. Pt washed face with R UE with supervision. Pt ate breakfast seated in w/c with supervision for safety with task. OT required to open all containers on tray and organize tray accordingly d/t pt's limited ROM in L UE. Pt able to follow all commands t/o. Pt very motivated to participate in session and improve overall function. Pt would benefit from 1.5 hrs/day 5 days/week of skilled OT for approx 3-4 weeks to maximize IND for safe d/c back into community. Pt in agreement with plan. OT Assessment: OT Assessment OT Assessment Results: Decreased ADL status, Decreased upper extremity range of motion, Decreased upper extremity strength, Decreased endurance, Decreased fine motor control, Decreased functional mobility, Decreased IADLs, Decreased gross motor control, Non-functional left upper extremity Prognosis: Good Evaluation/Treatment Tolerance: Patient tolerated treatment well Medical Staff Made Aware: Yes OT Plan: Plan Treatment Interventions: ADL retraining, Functional transfer training, UE strengthening/ROM, Endurance training, Patient/family training, Equipment evaluation/education, Neuromuscular reeducation, Fine motor coordination activities, Compensatory technique education OT Plan: Skilled OT OT Frequency : 5-7 days per week OT Duration of Sessions: 60-90 min per session OT Treatments per day: 1-2 times per day OT - Evaluation Status: Complete Equipment Recommended: (TBD) Goals: Encounter Problems Encounter Problems (Active) Template: Occupational Therapy Problem: OT Group Home Goals Dates: Start: 05/24/24 Goal: pt will be IND with lower body dressing AE PRN Dates: Start: 05/24/24 Expected End: 06/14/24 Goal: pt will be IND with upper body dressing Dates: Start: 05/24/24 Expected End: 06/14/24 Goal: pt will be IND with toilet txfer LRAD Dates: Start: 05/24/24 Expected End: 06/14/24 Goal: pt will ne IND with toileting tasks LRAD Dates: Start: 05/24/24 Expected End: 06/14/24 Goal: pt will be IND with footwear tasks AE PRN Dates: Start: 05/24/24 Expected End: 06/14/24 Problem: OT Short Term Goals Dates: Start: 05/24/24 Goal: Pt will be mod assist with upper body dressing Dates: Start: 05/24/24 Expected End: 05/31/24 Goal: Pt will me max assist with lower body dressing AE PRN Dates: Start: 05/24/24 Expected End: 05/31/24 Goal: Pt will be max assist with footwear AE PRN Dates: Start: 05/24/24 Expected End: 05/31/24 Goal: pt will be mod assist toilet txfer LRAD Dates: Start: 05/24/24 Expected End: 05/31/24 Goal: pt will be max assist with toileting tasks Dates: Start: 05/24/24 Expected End: 05/31/24 Encounter Problems (Resolved) There are no resolved problems. Education Documentation Body Mechanics, taught by Coby Aleman OT at 05/24/2024 8:45 AM. Learner: Patient Readiness: Eager Method: Explanation Response: Verbalizes Understanding Comment: Pt educated on hand placement when completing transitional movement. Pt educated on being a fall risk and use of call [place]. pt educated on completing AROM and PROM to L UE in order to improve overall function of L UE needed for daily tasks Precautions, taught by Coby Aleman OT at 05/24/2024 8:45 AM. Learner: Patient Readiness: Eager Method: Explanation Response: Verbalizes Understanding Comment: Pt educated on hand placement when completing transitional movement. Pt educated on being a fall risk and use of call [place]. pt educated on completing AROM and PROM to L UE in order to improve overall function of L UE needed for daily tasks ADL Training, taught by Coby Aleman OT at 05/24/2024 8:45 AM. Learner: Patient Readiness: Eager Method: Explanation Response: Verbalizes Understanding Comment: Pt educated on hand placement when completing transitional movement. Pt educated on being a fall risk and use of call [place]. pt educated on completing AROM and PROM to L UE in order to improve overall function of L UE needed for daily tasks Education Comments No comments found. Start/Stop Time: OT Time Calculation OT Start Time: 0700 OT Stop Time: 0830 OT Time Calculation (min): 90 min Therapy Minutes: Occupational Therapy OT Individual: 90 * Carmenza Lazo RN - 05/24/2024 1:54 AM EST Goals: Clinical Goals for the Shift: Become oriented to unit/floor/staff. To sleep better. Identify possible barriers to meeting goals/advancing plan of care: Pt orientating to the rehab unit. Stability of the patient: Moderately Unstable - Medium risk of patient condition declining or worsening End of Shift Summary: Bed in low position and locked, call [place] in reach, bed alarm on, hourly and prn safety checks maintained. Pt encouraged to use the call [place] for assist with any needs. Pt calm,cooperative and appropriate in conversation. documented in this encounter H&P Notes * ERIC Carbone - 05/24/2024 12:30 PM EST Images from the original note were not included. PHYSICAL MEDICINE AND REHABILITATION History & Physical Exam Patient Name: Bob Han Date of : 1950 Sex: Male Admit Date/Time: 05/23/2024 4:44 PM Chief Complaint: CVA HPI: This is a 73-year-old male with past medical history significant for hypertension, hyperlipidemia, obesity, migraines, anxiety, osteoporosis, who presented to the emergency department at [facility] for feeling unwell, migraine with aura, intermittent slurred speech, and memory loss. His last known well time was unclear. Patient's lab work in the emergency department unremarkable. CTA does not show any major arterial branch block occlusion. He was admitted to the medical team on 05/17. On 05/18/2024 patient had an MRI of the brain that showed acute nonhemorrhagic stroke/ischemia, right mid ruperto likely involving the inserting machine operator ruperto arteries. With small vessel occlusive disease. He had transthoracic echo on 05/18 that showed the left ventricular systolic function is normal with a calculated ejection fraction is 63% by biplane method. Moderate aortic valve stenosis. He was seen by neurology who states he appeared to have had a right hemisphere stroke. Recommended PT/OT, aspirin and atorvastatin which patient reports he does not tolerate therefor he was given ezetimibe. During his time at [facility] he had an elevated ammonia he had an ultrasound done of his abdomen that showed no liver disease. His ammonia normalized without intervention. He was monitored, stabilized and sent to us on May 23, 2024 for physical therapy, occupational therapy, speech-language pathology and nursing care PAST MEDICAL HISTORY: Past Medical History: Diagnosis Date HLD (hyperlipidemia) HTN (hypertension) Migraines Spinal stenosis Allergies Allergen Reactions Acetaminophen Rash Atorvastatin Muscular Issues Glipizide Anxiety Rosuvastatin Anxiety History reviewed. No pertinent surgical history. No family history on file. Social History Socioeconomic History Marital status: Spouse name: Larry Number of children: Not on file Years of education: Not on file Highest education level: Not on file Occupational History Not on file Tobacco Use Smoking status: Every Day Types: Pipe Passive exposure: Past Smokeless tobacco: Not on file Tobacco comments: 50 + years smoking pipe (Nicotine); denies need for Nicotine patch. Vaping Use Vaping status: Never Used Substance and Sexual Activity Alcohol use: Not Currently Drug use: Never Sexual activity: Not on file Other Topics Concern Not on file Social History Narrative Not on file Functional History: Independent / self care prior to this REVIEW OF SYSTEMS: Constitutional: No weight loss, fever, chills, weakness or fatigue. HEENT: No visual loss, blurred vision, double vision or yellow sclera. No hearing loss, sneezing, congestion, runny nose or sore throat. Skin: No rash or itching. Cardiovascular: No chest pain, chest pressure or chest discomfort. No palpitations or pedal edema. Respiratory: No shortness of breath, cough or sputum production. Gastrointestinal: No anorexia, nausea, vomiting or diarrhea. No abdominal pain or blood in stool. Genitourinary: No burning micturition. No urinary frequency or incontinence. Neurologic: No headache, dizziness, syncope, unilateral weakness, ataxia, numbness or tingling in the extremities. No change in bowel or bladder control. Musculoskeletal: No muscle pain, back pain, joint pain or stiffness. Hematologic: No bleeding or bruising. Psychiatric: No depression or anxiety. PHYSICAL EXAMINATION: Vitals: 05/24/24 0214 05/24/24 0703 05/24/24 1257 05/24/24 1529 BP: 133/53 131/51 (!) 143/61 (!) 144/64 BP Location: Right arm Right arm Pulse: 58 55 59 62 Resp: 18 17 Temp: 37 ??C (98.6 ??F) 36.4 ??C (97.5 ??F) TempSrc: Oral SpO2: 95% 95% 96% 97% General: Alert, in no acute cardiopulmonary distress. Mental Status: Oriented to person, place and time. Normal affect. Head: Normocephalic. Eyes: Pupils are equal, round and reactive to light. Extraocular muscles intact. Ear, Nose and Throat: Oropharynx clear, mucous membranes moist. Ears and nose without masses, lesions or deformities. Neck: Supple, Trachea midline. Respiratory: Clear to auscultation and percussion. No wheezing, rales or rhonchi. Cardiovascular: Heart sounds normal. No thrills. Regular rate and rhythm, no murmurs, rubs or gallops. Gastrointestinal: Abdomen soft, non-tender, non-distended. Normal bowel sounds. Genitourinary: No costovertebral angle tenderness. Neurologic: Cranial nerves II-XII intact. Deep tendon reflexes +2 bilaterally. Negative Hoffmans sign bilaterally. Negative clonus bilaterally. + pronation and flexion drift of the left upper extremity with left upper extremity weakness 3+/5. Left lower extremity 5 minus/5, hyperreflexia on the left side with an extensor plantar response.Sensation intact bilaterally. Skin: No rashes or lesions. No petechiae or purpura. No edema. Musculoskeletal: No cyanosis or clubbing. No gross deformities. Normal range of motion to RUE and b/l LE. Limited rom due to weakness on LUE HOME MEDICATIONS: Home Medications amLODIPine (NORVASC) 5 mg tablet Take 1 tablet (5 mg total) by mouth 1 (one) time each day. Due in AM aspirin 81 mg chewable tablet Chew 1 tablet (81 mg total) 1 (one) time each day. ezetimibe (ZETIA) 10 mg tablet Take 1 tablet (10 mg total) by mouth 1 (one) time each day. melatonin 3 mg tablet Take 10 mg by mouth at bedtime as needed for sleep. Med rec reads 10 mg at [facility] CURRENT INPATIENT MEDICATIONS: Current Facility-Administered Medications: aluminum-magnesium hydroxide-simethicone (MAALOX) 200-200-20 mg/5 mL suspension 30 mL, 30 mL, oral,q4h PRN, Wen A Stevan, DO amLODIPine (NORVASC) tablet 5 mg, 5 mg, oral, Daily, Wen A Stevan, DO, 5 mg at 05/24/24822 aspirin chewable tablet 81 mg, 81 mg, oral, Daily, Wen A Stevan, DO, 81 mg at 05/24/24822 bisacodyL (DULCOLAX) suppository 10 mg, 10 mg, rectal, Daily PRN, Wen A Stevan, DO docusate sodium (COLACE) capsule 100 mg, 100 mg, oral, BID, Wen A Stevan, DO, 100 mg at 05/23/242111 ezetimibe (ZETIA) tablet 10 mg, 10 mg, oral, Daily, Wen A Stevan, DO, 10 mg at 05/24/24822 magnesium hydroxide (MILK OF MAGNESIA) 400 mg/5 mL suspension 30 mL, 30 mL, oral, Daily PRN, Wen A Stevan, DO melatonin tablet 9 mg, 9 mg, oral, Nightly PRN, Wen A Stevan, DO, 9 mg at 05/23/242111 LABS: Lab Results Component Value Date WBC 7.5 05/24/2024 RBC 4.60 05/24/2024 HGB 13.8 05/24/2024 HCT 40.9 (L) 05/24/2024 MCV 88.5 05/24/2024 MCHC 33.7 05/24/2024 RDW 13.3 05/24/2024 PLT 316 05/24/2024 MPV 9.2 05/24/2024 NRBC 0.0 05/24/2024 DIFF Lab Results Component Value Date LYMPHOPCT 31.2 05/24/2024 NEUTROABS 3.78 05/24/2024 LYMPHSABS 2.33 05/24/2024 MONOABS 1.08 (H) 05/24/2024 EOSABS 0.15 05/24/2024 BASOSABS 0.08 05/24/2024 IMMGRANABS 0.04 (H) 05/24/2024 RETIC No results found for: RETIC , RETICCTPCT Lab Results Component Value Date NA 138 05/24/2024 K 4.2 05/24/2024 CL 107 05/24/2024 CO2 24 05/24/2024 GLUCOSE 92 05/24/2024 BUN 19 05/24/2024 CREATININE 0.74 05/24/2024 CALCIUM 9.0 05/24/2024 PROT 6.5 05/24/2024 ALBUMIN 3.0 (L) 05/24/2024 BILITOT 0.6 05/24/2024 AST 32 05/24/2024 ALT 35 05/24/2024 ALKPHOS 101 05/24/2024 EGFR 96 05/24/2024 IMPRESSION & PLAN: #Impaired mobility and self-care -Secondary to CVA -Continue with PT/OT/speech #Acute ischmic CVA # Left sided weakness -Aspirin 81 mg daily - Ezetimibe 10 mg daily #Hypertension -Amlodipine 5 mg daily #Diabetes II - A1C 5.3 now -ISS -Diabetic diet #Hyperammonemia -Present at [facility] on 05/17 however resolved. -Monitor DVTP: aspirin + SCDs Code status: full code ____ Bob Han is being admitted to the inpatient rehab unit in order to participate in an acute rehab program which evokes a multidisciplinary team approach in order to improve their functional mobility and activities of daily living. Physical therapy will be involved in order to provide gait and balance training, improve strength and range of motion and utilize modalities as deemed necessary.Occupational Therapy will assess and educate with activities of daily living which include bathing dressing toileting and basic household activities. Speech therapy will evaluate speech, cognition, and swallowing and continue to follow as needed for any deficits in these areas. Patient will also befollowed by internal medicine 24-hour nursing in order to monitor medical status and provide continuous education regarding medical conditions. Case management will start discharge planning and arrange for team conferences. Rehab goals: Increased functional ability, increased muscle strength and conditioning, progress to self-care andADLs. Educate the patient and the family on disease process and discharge back home into the community. Patient's progress will be discussed in weekly multidisciplinary team conferences along with any barriers which may inhibit patient from returning home safely. Rehab potential/prognosis: Patient has good rehab potential and is well motivated. Patient has family support. Disposition: Weekly multidisciplinary team conferences will be held in order to discuss the patient's progress, barriers, and goals regarding their discharge plan. Goals for the patient include returning home to their prior level of functioning with home services for continued rehab and recovery. Estimated length of stay: 2 weeks ____ Cosigned by Wen Calles DO at 05/24/2024 6:08 PM EST Associated attestation - Wen Calles DO - 05/24/2024 6:08 PM EST Patient seen and examined by this provider at 7:50AM today. No acute events overnight. Reports thatleft upper extremity weakness continues. Denies pain. Agree with H&P as documented by PA. Therapy evaluations completed today. documented in this encounter Consult Notes * ERIC Chisholm - 05/24/2024 8:22 AM EST Images from the original note were not included. SUSU CONSULT NOTE Please contact author [ERIC Chisholm] via [facility] Records Management/Temporal Power. Patient: Bob Han Admission Date/Time: 05/23/2024 4:44 PM : 1950 [73 y.o.] Patient's PCP: Sami Najera MD Attending Provider: Wen Calles DO REASON FOR CONSULT Medical Co management Complaint complaint: Stroke HISTORY OF PRESENT ILLNESS This is a 73-year-old gentleman with a past medical history of hypertension, hyperlipidemia, morbidobesity with recent weight loss, history of diabetes no longer on medication, spinal stenosis with chronic left lower extremity weakness who presented to [facility] with altered mental status, expressive aphasia. Symptoms began 2 days prior to presentation. In the emergency room CTA of the head and neck without acute stroke. Patient was ultimately found to have an acute pontine CVA. He was seen by neurology. He was placed on aspirin no true allergy to aspirin. And tolerating well. He is intolerant of atorvastatin and lovastatin he is currently on Zetia given his LDL being elevated. No other arrhythmias on telemetry. TTE on 05/18 showed the left ventricular systolic function is normal. EF of 63%. There is moderate aortic valve stenosis. Factor V Leiden was sent as there is a family history. His A1c was found to be 5.3. Due to his hypertension he was started on amlodipine. He was also found to have hyperammonemia. Unclear significance. Ultrasound of the liver no evidence of liver disease. Initially was placed on lactulose this was discontinued. Repeat ammonia level was normal. Hedid have dilated common bile duct. LFTs normal per radiology normal diameter for age and did not need further workup. He was seen by physical therapy and recommended for acute rehab. Review of Systems Constitutional :no fever chills , appetite fair, sleeping well HEENT: History of migraines Respiratory: denies shortness of breath, coughing or wheezing Cardiac: denies chest pain, palpitations, orthopnea PND : No abd pain, no N/V. Moving bowels Genitourinary: denies any dysuria frequency urgency, or urinary retention Hematologic: Denies any easy bruising or bleeding tendency Musculoskeletal: Spinal stenosis chronic left lower extremity weakness. NEURO: Altered mental status, expressive aphasia slurred speech memory difficulty periods of confusion. SKIN: no lesions or rashes Psych: denies any recent mood changes : anxiety or depression MEDICAL HISTORY Past Medical History Past Medical History: Diagnosis Date HLD (hyperlipidemia) HTN (hypertension) Migraines Spinal stenosis DM-> resolved after wt loss A1c 5.3 Chronic left lower ext weakness Past Surgical History Knee surgery Shoulder surgery Social History reports that he has been smoking pipe. He has been exposed to tobacco smoke. He does not have any smokeless tobacco history on file. He reports that he does not currently use alcohol. He reports thathe does not use drugs. Family History Factor V leiden Allergies is allergic to acetaminophen, atorvastatin, glipizide, and rosuvastatin. Medications amLODIPine, 5 mg, oral, Daily aspirin, 81 mg, oral, Daily docusate sodium, 100 mg, oral, BID ezetimibe, 10 mg, oral, Daily PRN medications: aluminum-magnesium hydroxide-simethicone, bisacodyL, magnesium hydroxide, melatonin Objective Vitals Visit Vitals BP 131/51 (BP Location: Right arm) Pulse 58 Temp 37 ??C (98.6 ??F) (Oral) Resp 18 Temp (24hrs), Av.8 ??C (98.2 ??F), Min:36.5 ??C (97.7 ??F), Max:37 ??C (98.6 ??F) Physical Examination General: conscious alert no acute distress HEENT: pupils are equal round and reactive. extraocular movements are grossly intact lungs clear to auscultation, no wheezing or crackles noted heart regular rate and rhythm, no murmur or rubs abdomen soft nontender nondistended positive bowel sounds Musculoskeletal: No gross deformity to joints extremities without edema, erythema or calf tenderness neuro: left upper ext weakness 2-3/5. Crm Administrator strength 3/5 Left leg strength 4/5 . skin: no rashes or lesions. psych: mood stable appearing, good eye contact. LAB RESULTS (most recent) HEMATOLOGY Lab Results Component Value Date WBC 7.5 05/24/2024 HGB 13.8 05/24/2024 HCT 40.9 (L) 05/24/2024 MCV 88.5 05/24/2024 PLT 316 05/24/2024 CHEMISTRY Lab Results Component Value Date GLUCOSE 92 05/24/2024 NA 138 05/24/2024 K 4.2 05/24/2024 CO2 24 05/24/2024 CL 107 05/24/2024 BUN 19 05/24/2024 CREATININE 0.74 05/24/2024 EGFR 96 05/24/2024 CALCIUM 9.0 05/24/2024 ANIONGAP 7 05/24/2024 Radiology Data reviewed from [facility] ASSESSMENT & PLAN 73 y/o male hx of HTN, diabetes no longer on medication after wt loss who presented to [facility] # Acute ischemic CVA-acute pontine CVA CTA of the head and neck no acute stroke. Echocardiogram EF of 63%, moderate aortic valve stenosis Family history of factor V Leiden lab currently pending Seen by neurology who recommended aspirin, intolerant of statin now on Zetia Per rehab team Follow-up with neurology after discharge-[facility] #Moderate aortic stenosis currently euvolemic asymptomatic monitor #History of spinal stenosis. with chronic left lower extremity weakness #Hypertension Amlodipine 5 mg BP reasonable controlled #History of diabetes Resolved after weight loss A1c 5.3 #Hyperlipidemia Intolerant of statin currently on Zetia Follow-up with PCP after discharge for ongoing monitoring #Hyperammonemia Resolved unclear significance Ultrasound of of liver no evidence of disease Lactulose was discontinued DVT prophylaxis defer to Dr. Calles Cosigned by Bhupinder Jara MD at 05/31/2024 11:00 AM EST documented in this encounter Plan of Treatment Upcoming Encounters Date Type Department Care Team (Late st Contact Info) Description 06/22/2024 12:45 PM EST Evaluation [facility] [address] [phone] Dawson Small, PT 06/27/2024 11:00 AM EDT Treatment [facility] [address] [phone] Teresa Garner, PT 06/29/2024 12:30 PM EDT Treatment [facility] Occupational Therapy [address] [phone] Dakota Jiang, OT 07/04/2024 2:00 PM EDT Treatment [address] [phone] Randall Roe, PROFILER HAND 07/06/2024 10:45 AM EDT Evaluation [facility] Speech Therapy [address] [place] [phone] Rose Montez, BULK FLUIDS HANDLER 07/08/2024 11:00 AM EDT Treatment [address] [phone] Randall Roe, PROFILER HAND 07/11/2024 10:30 AM EDT Treatment [facility] Occupational [address] [phone] Alma Delia Lopes COTA 07/13/2024 10:45 AM EDT Treatment [facility] Speech Therapy [address] [phone] Rose Montez, BULK FLUIDS HANDLER 07/15/2024 11:45 AM EDT Treatment [facility] [address] [phone] Randall Roe, PROFILER HAND 07/15/2024 12:30 PM EDT Treatment [facility] Occupational [address] [phone] Keiko Munoz COTA/Daysi 07/18/2024 9:30 AM EDT Treatment [facility] Outpatient [facility] [address] [phone] Randall Roe, LELA 07/18/2024 10:15 AM EDT Treatment [facility] Occupational Therapy [address] [phone] Alma Delia Lopes, DIAZ 07/21/2024 10:45 AM EDT Treatment [facility] Speech Therapy [address] [phone] Rose Montez, BULK FLUIDS HANDLER 07/21/2024 11:15 AM EDT Treatment [facility] Occupational Therapy [address] [place] [phone] Alma Delia Lopes, DIAZ 07/27/2024 12:45 PM EDT Treatment [facility] Speech Therapy [address] [place] [phone] Rose Montez, BULK FLUIDS HANDLER 08/03/2024 10:45 AM EDT Treatment [facility] Speech Therapy [address] [place] [phone] Rose Montez, BULK FLUIDS HANDLER 08/10/2024 11:30 AM EDT Treatment [facility] Speech Therapy [address] [place] [phone] Rose Montez, BULK FLUIDS HANDLER Scheduled Referrals Name Type Priority Associated Diagnoses Order Schedule Ambulatory referral to Physical Therapy and Athletic Training Outpatient Referral Routine Cerebrovascular accident (CVA), unspecified mechanism (CMS/HCC) 1 Occurrences starting 05/25/2024 until 05/25/2025 Ambulatory referral to Occupational Therapy Outpatient Referral Routine Cerebrovascular accident (CVA), unspecified mechanism (CMS/HCC) 1 Occurrences starting 05/25/2024 until 05/25/2025 Ambulatory referral to Speech Therapy Outpatient Referral Routine Cerebrovascular accident (CVA), unspecified mechanism (CMS/HCC) 1 Occurrences starting 05/25/2024 until 05/25/2025 documented as of this encounter Procedures Procedure Name Priority Date/Time Associated Diagnosis Comments COMPLETE BLOOD COUNT Routine 06/07/2024 5:45 AM EST COMPREHENSIVE METABOLIC PANEL Routine 06/07/2024 5:45 AM EST COMPLETE BLOOD COUNT Routine 06/01/2024 5:20 AM EST COMPREHENSIVE METABOLIC PANEL Routine 06/01/2024 5:20 AM EST SST - GOLD Routine 05/29/2024 5:59 AM EST EXTRA TUBES Routine 05/29/2024 5:59 AM EST LAVENDER - EDTA Routine 05/29/2024 5:59 AM EST COMPLETE BLOOD COUNT Routine 05/29/2024 5:56 AM EST BASIC METABOLIC PANEL Routine 05/29/2024 5:56 AM EST URINALYSIS WITH REFLEX MICROSCOPIC AND CULTURE Routine 05/27/2024 3:03 PM EST ABDALLA URINE CULTURE TUBE Routine 05/27/2024 [...] AUTO DIFFERENTIAL Routine 05/24/2024 6:38 AM EST CBC AND DIFFERENTIAL Routine 05/24/2024 6:38 AM EST COMPREHENSIVE METABOLIC PANEL Routine 05/24/2024 6:38 AM EST documented in this encounter Results * (ABNORMAL) Comprehensive metabolic panel (06/07/2024 5:45 AM EST) Sodium 134 133 - 145 mmol/L LAB CHEMISTRY METHOD 06/07/2024 7:10 AM [facility] Potassium 4.4 3.5 - 5.5 mmol/L LAB CHEMISTRY METHOD 06/07/2024 7:10 AM [facility] Chloride 104 96 - 110 mmol/L LAB CHEMISTRY METHOD 06/07/2024 7:10 AM [facility] CO2 28 21 - 32 mmol/L LAB CHEMISTRY METHOD 06/07/2024 7:10 AM [facility] Anion Gap 2(L) 3 - 11 LAB CHEMISTRY METHOD 06/07/2024 7:10 AM [facility] Glucose 89 70 - 100 mg/dL LAB CHEMISTRY METHOD 06/07/2024 7:10 AM [facility] BUN 20 5 - 25 mg/dL LAB CHEMISTRY METHOD 06/07/2024 7:10 AM [facility] Creatinine 0.78 0.70 - 1.30 mg/dL LAB CHEMISTRY METHOD 06/07/2024 7:10 AM [facility] eGFR 94 >=60 mL/min/1. 73m2 LAB CHEMISTRY METHOD 06/07/2024 7:10 AM [facility] Comment:Calculation based on the??Chronic Kidney Disease Epidemiology Collaboration (CKD-EPI) equation refit??without adjustment for race. BUN/Creatinine Ratio 25.6 LAB CHEMISTRY METHOD 06/07/2024 7:10 AM [facility] Calcium 9.4 8.5 - 10.5 mg/dL LAB CHEMISTRY METHOD 06/07/2024 7:10 AM [facility] AST (SGOT) 33 10 - 42 unit/L LAB CHEMISTRY METHOD 06/07/2024 7:10 AM [facility] ALT (SGPT) 51 10 - 60 unit/L LAB CHEMISTRY METHOD 06/07/2024 7:10 AM [facility] Alkaline Phosphatase 114 42 - 121 unit/L LAB CHEMISTRY METHOD 06/07/2024 7:10 AM [facility] Total Protein 6.8 6.0 - 8.0 g/dL LAB CHEMISTRY METHOD 06/07/2024 7:10 AM [facility] Albumin 2.9(L) 3.2 - 5.0 g/dL LAB CHEMISTRY METHOD 06/07/2024 7:10 AM [facility] Total Bilirubin 0.5 0.0 - 1.4 mg/dL LAB CHEMISTRY METHOD 06/07/2024 7:10 AM [facility] Blood Venous blood specimen / Unknown Venipuncture / Unknown 06/07/2024 5:45 AM EST 06/07/2024 6:23 AM EST Malena Soto NP LAB BLOOD ORDERABLES Final Result [facility] [address] [place] [address], * (ABNORMAL) Complete blood count (06/07/2024 5:45 AM EST) [facility] Signature WBC 7.9 4.8 - 10.8 K/mcL LAB HEMETOLOGY METHOD 06/07/2024 6:34 AM EST [facility] RBC 4.70 4.50 - 5.50 M/mcL LAB HEMETOLOGY METHOD 06/07/2024 6:34 AM EST [facility] Hemoglobin 13.6 13.5 - 17.5 g/dL LAB HEMETOLOGY METHOD 06/07/2024 6:34 AM [facility] Hematocrit 41.2(L) 42.0 - 54.0 % LAB HEMETOLOGY METHOD 06/07/2024 6:34 AM EST [facility] MCV 87.5 79.0 - 98.0 FL LAB HEMETOLOGY METHOD 06/07/2024 6:34 AM EST [facility] MCH 28.9 27.0 - 32.0 pcg LAB HEMETOLOGY METHOD 06/07/2024 6:34 AM EST [facility] MCHC 33.0 32.0 - 37.0 g/dL LAB HEMETOLOGY METHOD 06/07/2024 6:34 AM EST [facility] RDW 12.8 11.0 - 15.0 % LAB HEMETOLOGY METHOD 06/07/2024 6:34 AM [facility] Platelets 384 130 - 400 K/mcL LAB HEMETOLOGY METHOD 06/07/2024 6:34 AM EST [facility] MPV 8.5 7.0 - 11.0 FL LAB HEMETOLOGY METHOD 06/07/2024 6:34 AM EST [facility] NRBC 0.0 <1.0 % LAB HEMETOLOGY METHOD 06/07/2024 6:34 AM EST [facility] NRBC Absolute 0.00 <0.10 K/[facility] LAB HEMETOLOGY METHOD 06/07/2024 6:34 AM [facility] Blood Venous blood specimen / Unknown Venipuncture / Unknown 06/07/2024 5:45 AM EST 06/07/2024 6:26 AM EST Malena Soto NP LAB BLOOD ORDERABLES Final Result [facility] [address] [place] [address], * (ABNORMAL) Complete blood count (06/01/2024 5:20 AM EST) WBC 8.1 4.8 - 10.8 K/mcL LAB HEMETOLOGY METHOD 06/01/2024 6:56 AM [facility] RBC 4.70 4.50 - 5.50 M/mcL LAB HEMETOLOGY METHOD 06/01/2024 6:56 AM [facility] Hemoglobin 13.4(L) 13.5 - 17.5 g/dL LAB HEMETOLOGY METHOD 06/01/2024 6:56 AM [facility] Hematocrit 41.2(L) 42.0 - 54.0 % LAB HEMETOLOGY METHOD 06/01/2024 6:56 AM [facility] MCV 88.4 79.0 - 98.0 FL LAB HEMETOLOGY METHOD 06/01/2024 6:56 AM [facility] MCH 28.8 27.0 - 32.0 pcg LAB HEMETOLOGY METHOD 06/01/2024 6:56 AM [facility] MCHC 32.5 32.0 - 37.0 g/dL LAB HEMETOLOGY METHOD 06/01/2024 6:56 AM [facility] RDW 13.0 11.0 - 15.0 % LAB HEMETOLOGY METHOD 06/01/2024 6:56 AM [facility] Platelets 352 130 - 400 K/mcL LAB HEMETOLOGY METHOD 06/01/2024 6:56 AM [facility] MPV 8.8 7.0 - 11.0 FL LAB HEMETOLOGY METHOD 06/01/2024 6:56 AM [facility] NRBC 0.0 <1.0 % LAB HEMETOLOGY METHOD 06/01/2024 6:56 AM [facility] NRBC Absolute 0.00 <0.10 K/mcL LAB HEMETOLOGY METHOD 06/01/2024 6:56 AM [facility] Blood Venous blood specimen / Unknown Venipuncture / Unknown 06/01/2024 5:20 AM EST 06/01/2024 6:22 AM EST us Pretty REYES LAB BLOOD ORDERABLES Final R esult [facility] [address] [place] [address], * (ABNORMAL) Comprehensive metabolic panel (06/01/2024 5:20 AM EST) Sodium 137 133 - 145 mmol/L LAB CHEMISTRY METHOD 06/01/2024 7:04 AM [facility] Potassium 4.5 3.5 - 5.5 mmol/L LAB CHEMISTRY METHOD 06/01/2024 7:04 AM [facility] Chloride 106 96 - 110 mmol/L LAB CHEMISTRY METHOD 06/01/2024 7:04 AM [facility] CO2 26 21 - 32 mmol/L LAB CHEMISTRY METHOD 06/01/2024 7:04 AM [facility] LAB Anion Gap 5 3 - 11 LAB CHEMISTRY METHOD 06/01/2024 7:04 AM [facility] Glucose 92 70 - 100 mg/dL LAB CHEMISTRY METHOD 06/01/2024 7:04 AM [facility] BUN 17 5 - 25 mg/dL LAB CHEMISTRY METHOD 06/01/2024 7:04 AM [facility] Creatinine 0.63(L) 0.70 - 1.30 mg/dL LAB CHEMISTRY METHOD 06/01/2024 7:04 AM [facility] LAB eGFR 100 >=60 mL/min/1. 73m2 LAB CHEMISTRY METHOD 06/01/2024 7:04 AM [facility] LAB Comment:Calculation based on the??Chronic Kidney Disease Epidemiology Collaboration (CKD-EPI) equation refit??without adjustment for race. BUN/Creatinine Ratio 27.0 LAB CHEMISTRY METHOD 06/01/2024 7:04 AM [facility] Calcium 9.1 8.5 - 10.5 mg/dL LAB CHEMISTRY METHOD 06/01/2024 7:04 AM [facility] AST (SGOT) 52(H) 10 - 42 unit/L LAB CHEMISTRY METHOD 06/01/2024 7:04 AM [facility] ALT (SGPT) 53 10 - 60 unit/L LAB CHEMISTRY METHOD 06/01/2024 7:04 AM [facility] Alkaline Phosphatase 108 42 - 121 unit/L LAB CHEMISTRY METHOD 06/01/2024 7:04 AM [facility] Total Protein 6.6 6.0 - 8.0 g/dL LAB CHEMISTRY METHOD 06/01/2024 7:04 AM [facility] Albumin 2.6(L) 3.2 - 5.0 g/dL LAB CHEMISTRY METHOD 06/01/2024 7:04 AM [facility] Total Bilirubin 0.5 0.0 - 1.4 mg/dL LAB CHEMISTRY METHOD 06/01/2024 7:04 AM [facility] Blood Venous blood specimen / Unknown Venipuncture / Unknown 06/01/2024 5:20 AM EST 06/01/2024 6:24 AM EST Pretty Tamez PA LAB BLOOD ORDERABLES Final R esult Performing Organization Address [facility]/ZIP Co de Phone Number [facility] [address] [place] [address], [place] [phone] * Lavender tube (05/29/2024 5:59 AM EST) Extra Tube Hold for add-ons. 05/29/2024 8:01 AM EST [facility] Comment:Auto resulted. Blood Venous blood specimen / Unknown 05/29/2024 5:59 AM EST 05/29/2024 6:14 AM EST Wen Calles DO LAB BLOOD ORDERABLES Tanisha l Result Performing Organization Address [facility] [[email or web address] Co de Phone Number [facility] [address] [place] [address], [place] [phone] * SST tube (05/29/2024 5:59 AM EST) Extra Tube Hold for add-ons. 05/29/2024 8:01 AM EST [facility] Comment:Auto resulted. Blood Venous blood specimen / Unknown 05/29/2024 5:59 AM EST 05/29/2024 6:14 AM EST Wen Calles DO LAB BLOOD ORDERABLES Tanisha l Result Performing Organization Address City/[facility]/ZIP Co de Phone Number [facility] [address] [place] [address], [place] [phone] * (ABNORMAL) Basic metabolic panel (05/29/2024 5:56 AM EST) Sodium 131(L) 133 - 145 mmol/L LAB CHEMISTRY METHOD 05/29/2024 6:44 AM [facility] Potassium 4.0 3.5 - 5.5 mmol/L LAB CHEMISTRY METHOD 05/29/2024 6:44 AM [facility] Chloride 99 96 - 110 mmol/L LAB CHEMISTRY METHOD 05/29/2024 6:44 AM [facility] CO2 27 21 - 32 mmol/L LAB CHEMISTRY METHOD 05/29/2024 6:44 AM [facility] Anion Gap 5 3 - 11 LAB CHEMISTRY METHOD 05/29/2024 6:44 AM [facility] Glucose 96 70 - 100 mg/dL LAB CHEMISTRY METHOD 05/29/2024 6:44 AM [facility] BUN 26(H) 5 - 25 mg/dL LAB CHEMISTRY METHOD 05/29/2024 6:44 AM [facility] Creatinine 0.80 0.70 - 1.30 mg/dL LAB CHEMISTRY METHOD 05/29/2024 6:44 AM [facility] eGFR 93 >=60 mL/min/1. 73m2 LAB CHEMISTRY METHOD 05/29/2024 6:44 AM [facility] Comment:Calculation based on the??Chronic Kidney Disease Epidemiology Collaboration (CKD-EPI) equation refit??without adjustment for race. BUN/Creatinine Ratio 32.5 LAB CHEMISTRY METHOD 05/29/2024 6:44 AM [facility] Calcium 9.0 8.5 - 10.5 mg/dL LAB CHEMISTRY METHOD 05/29/2024 6:44 AM [facility] Blood Venous blood specimen / Unknown Venipuncture / Unknown 05/29/2024 5:56 AM EST 05/29/2024 6:13 AM EST Malena Soto NP LAB BLOOD ORDERABLES Final Result [facility] [address] [place] [address], [place] [phone] * (ABNORMAL) Complete blood count (05/29/2024 5:56 AM EST) [facility] Signature WBC 10.6 4.8 - 10.8 K/mcL LAB HEMETOLOGY METHOD 05/29/2024 6:26 AM [facility] RBC 4.50 4.50 - 5.50 M/mcL LAB HEMETOLOGY METHOD 05/29/2024 6:26 AM [facility] Hemoglobin 13.1(L) 13.5 - 17.5 g/dL LAB HEMETOLOGY METHOD 05/29/2024 6:26 AM [facility] Hematocrit 39.8(L) 42.0 - 54.0 % LAB HEMETOLOGY METHOD 05/29/2024 6:26 AM [facility] MCV 88.2 79.0 - 98.0 FL LAB HEMETOLOGY METHOD 05/29/2024 6:26 AM [facility] MCH 29.0 27.0 - 32.0 pcg LAB HEMETOLOGY METHOD 05/29/2024 6:26 AM [facility] MCHC 32.9 32.0 - 37.0 g/dL LAB HEMETOLOGY METHOD 05/29/2024 6:26 AM [facility] RDW 12.9 11.0 - 15.0 % LAB HEMETOLOGY METHOD 05/29/2024 6:26 AM [facility] Platelets 293 130 - 400 K/mcL LAB HEMETOLOGY METHOD 05/29/2024 6:26 AM [facility] MPV 8.9 7.0 - 11.0 FL LAB HEMETOLOGY METHOD 05/29/2024 6:26 AM [facility] NRBC 0.0 <1.0 % LAB HEMETOLOGY METHOD 05/29/2024 6:26 AM EST [facility] NRBC Absolute 0.00 <0.10 K/mcL LAB HEMETOLOGY METHOD 05/29/2024 6:26 AM EST [facility] Blood Venous blood specimen / Unknown Venipuncture / Unknown 05/29/2024 5:56 AM EST 05/29/2024 6:13 AM EST Malena Soto NP LAB BLOOD ORDERABLES Final Result [facility] [address] [place] [address], * (ABNORMAL) Culture urine (05/27/2024 3:03 PM EST) Culture, Urine >100,000 CFU/mL Escherichia coli(A) ARNEL 05/29/2024 9:41 AM EST [facility] Urine Urine specimen obtained [...] O RDERABLES Final Result Performing Organization Address [facility]/ZIP Co de Phone Number [facility] [address] [place] [address], [place] [phone] * Abdalla urine culture tube (05/27/2024 3:03 PM EST) [facility] Extra Tube Hold for add-ons. 05/27/2024 5:02 PM EST [facility] Comment:Auto resulted. Urine Urine specimen obtained by clean catch procedure / Unknown Non-blood Collection / Unknown 05/27/2024 3:03 PM EST 05/27/2024 3:11 PM EST Pretty REYES LAB URINE ORDERABLES Final R esult Performing Organization Address [facility] [[email or web address]] Co de Phone Number [facility] [address] [place] [address], [place] [phone] * (ABNORMAL) Urinalysis with reflex microscopic and culture (05/27/2024 3:03 PM EST) [facility] Specific [place] Urine 1.023 1.003 - 1.030 LAB URINALYSIS - AUTOMATED METHOD 05/27/2024 3:48 PM [facility] pH, Urine 5.5 5.0 - 8.0 pH LAB URINALYSIS - AUTOMATED METHOD 05/27/2024 3:48 PM [facility] Leukocytes, Urine Small(A) Negative LAB URINALYSIS - AUTOMATED METHOD 05/27/2024 3:48 PM [facility] Nitrite, Urine Positive(A) Negative LAB URINALYSIS - AUTOMATED METHOD 05/27/2024 3:48 PM [facility] Protein, Urine Trace <=Trace mg/dL LAB URINALYSIS - AUTOMATED METHOD 05/27/2024 3:48 PM [facility] Glucose, Urine Negative Negative mg/dL LAB URINALYSIS - AUTOMATED METHOD 05/27/2024 3:48 PM [facility] Ketones, Urine Trace(A) Negative mg/dL LAB URINALYSIS - AUTOMATED METHOD 05/27/2024 3:48 PM [facility] Urobilinogen , Urine 1.0 0.2 - 1.0 mg/dL LAB URINALYSIS - AUTOMATED METHOD 05/27/2024 3:48 PM [facility] Bilirubin, Urine Negative Negative LAB URINALYSIS - AUTOMATED METHOD 05/27/2024 3:48 PM [facility] Blood, Urine Moderate(A) Negative LAB URINALYSIS - AUTOMATED METHOD 05/27/2024 3:48 PM [facility] RBC, Urine 3.2 0 - 4 /HPF LAB URINALYSIS - AUTOMATED METHOD 05/27/2024 3:48 PM [facility] WBC, Urine 27.2(H) 0 - 4 /HPF LAB URINALYSIS - AUTOMATED METHOD 05/27/2024 3:48 PM [facility] Squamous Epithelial, Urine 6 0 - 60 /LPF LAB URINALYSIS - AUTOMATED METHOD 05/27/2024 3:48 PM [facility] Bacteria, Urine Many(A) Negative /HPF LAB URINALYSIS - AUTOMATED METHOD 05/27/2024 3:48 PM [facility] Hyaline Casts, Urine 2.4 0 - 3 /LPF LAB URINALYSIS - AUTOMATED METHOD 05/27/2024 3:48 PM [facility] Urine Urine specimen obtained by clean catch procedure / Unknown Non-blood Collection / Unknown 05/27/2024 3:03 PM EST 05/27/2024 3:11 PM EST us Pretty REYES LAB URINE ORDERABLES Final R esult [facility] [address] [place] [address], [place] [phone] * (ABNORMAL) POCT Glucose, blood (05/27/2024 7:12 AM EST) Glucose POCT 106(H) 70 - 100 mg/dL 05/27/2024 7:13 AM EST [facility] Blood Capillary blood specimen / Unknown 05/27/2024 7:12 AM EST 05/27/2024 7:14 AM EST Wen Calles DO LAB POINT OF CARE TEST DOCKED DEVICE UNSOLICITED RESULTS Final Result Performing Organization Address [facility] [[email or web address]] Co de Phone Number [facility] [address] [place] [address], [place] [phone] * (ABNORMAL) POCT Glucose, blood (2024 7:57 PM EST) Glucose POCT 126(H) 70 - 100 mg/dL 2024 7:57 PM EST [facility] Blood Capillary blood specimen / Unknown 2024 7:57 PM EST 2024 7:59 PM EST Wen Calles DO LAB POINT OF CARE TEST DOCKED DEVICE UNSOLICITED RESULTS Final Result Performing Organization Address [facility]/ZIP Co de Phone Number [facility] [address] [place] [address], [place] [phone] * (ABNORMAL) POCT Glucose, blood (2024 4:28 PM EST) Glucose POCT 122(H) 70 - 100 mg/dL 2024 4:28 PM EST [facility] Blood Capillary blood specimen / Unknown 2024 4:28 PM EST 2024 4:29 PM EST Wen Calles DO LAB POINT OF CARE TEST DOCKED DEVICE UNSOLICITED RESULTS Final Result Performing Organization Address [facility] [[email or web address]] Co de Phone Number [facility] [address] [place] [address], [place] [phone] * (ABNORMAL) POCT Glucose, blood (2024 11:09 AM EST) Glucose POCT 133(H) 70 - 100 mg/dL 2024 11:10 AM EST [facility] Blood Capillary blood specimen / Unknown 2024 11:09 AM EST 2024 11:12 AM EST Wen Calles DO [facility] POINT OF CARE TEST DOCKED DEVICE UNSOLICITED RESULTS Final Result Performing Organization Address [facility] [[email or web address]] Co de Phone Number [facility] [address] [place] [address], [place] [phone] * (ABNORMAL) POCT Glucose, blood (2024 7:17 AM EST) Glucose POCT 105(H) 70 - 100 mg/dL 2024 7:18 AM EST [facility] Blood Capillary blood specimen / Unknown 2024 7:17 AM EST 2024 7:19 AM EST Wen Calles DO LAB POINT OF CARE TEST DOCKED DEVICE UNSOLICITED RESULTS Final Result Performing Organization Address [facility] [[email or web address]] Co de Phone Number [facility] [address] [place] [address], [place] [phone] * (ABNORMAL) POCT Glucose, blood (05/25/2024 8:07 PM EST) Glucose POCT 122(H) 70 - 100 mg/dL 05/25/2024 9:09 PM EST [facility] Blood Capillary blood specimen / Unknown 05/25/2024 8:07 PM EST 05/25/2024 9:10 PM EST Wen Calles DO LAB POINT OF CARE TEST DOCKED DEVICE UNSOLICITED RESULTS Final Result Performing Organization Address [facility] [[email or web address]] Co de Phone Number [facility] [address] [place] [address], [place] [phone] * (ABNORMAL) POCT Glucose, blood (05/25/2024 3:49 PM EST) Glucose POCT 124(H) 70 - 100 mg/dL 05/25/2024 4:51 PM EST [facility] Blood Capillary blood specimen / Unknown 05/25/2024 3:49 PM EST 05/25/2024 4:52 PM EST us Wen Calles DO LAB POINT OF CARE TEST DOCKED DEVICE UNSOLICITED RESULTS Final Result Performing Organization Address [facility] de Phone Number [facility] [address] [place] [address], [place] [phone] * (ABNORMAL) POCT Glucose, blood (05/25/2024 11:25 AM EST) Glucose POCT 115(H) 70 - 100 mg/dL 05/25/2024 11:26 AM EST [facility] Blood Capillary blood specimen / Unknown 05/25/2024 11:25 AM EST 05/25/2024 11:27 AM EST Wen Calles DO LAB POINT OF CARE TEST DOCKED DEVICE UNSOLICITED RESULTS Final Result Performing Organization Address City/[facility]/ZIP Co de Phone Number [facility] [address] [place] [address], [place] [phone] * POCT Glucose, blood (05/25/2024 7:22 AM EST) Glucose POCT 96 70 - 100 mg/dL 05/25/2024 7:23 AM EST [facility] Blood Capillary blood specimen / Unknown 05/25/2024 7:22 AM EST 05/25/2024 7:25 AM EST Wenedie Jenningsese LAB POINT OF CARE TEST DOCKED DEVICE UNSOLICITED RESULTS Final Result [facility] [address] [place] [address], [place] [phone] * (ABNORMAL) POCT Glucose, blood (05/24/2024 7:49 PM EST) Glucose POCT 192(H) 70 - 100 mg/dL 05/24/2024 7:56 PM EST [facility] Blood Capillary blood specimen / Unknown 05/24/2024 7:49 PM EST 05/24/2024 7:57 PM EST Wen Calles DO LAB POINT OF CARE TEST DOCKED DEVICE UNSOLICITED RESULTS Final Result [facility] [address] [place] [address], [place] [phone] * (ABNORMAL) POCT Glucose, blood (05/24/2024 4:16 PM EST) Glucose POCT 137(H) 70 - 100 mg/dL 05/24/2024 4:20 PM EST [facility] Blood Capillary blood specimen / Unknown 05/24/2024 4:16 PM EST 05/24/2024 4:21 PM EST us Wen Calles DO LAB POINT OF CARE TEST DOCKED DEVICE UNSOLICITED RESULTS Final Result [facility] [address] [place] [address], [place] [phone] * (ABNORMAL) CBC auto differential (05/24/2024 6:38 AM EST) WBC 7.5 4.8 - 10.8 K/mcL LAB HEMETOLOGY METHOD 05/24/2024 7:41 AM [facility] RBC 4.60 4.50 - 5.50 M/mcL LAB HEMETOLOGY METHOD 05/24/2024 7:41 AM [facility] Hemoglobin 13.8 13.5 - 17.5 g/dL LAB HEMETOLOGY METHOD 05/24/2024 7:41 AM [facility] Hematocrit 40.9(L) 42.0 - 54.0 % LAB HEMETOLOGY METHOD 05/24/2024 7:41 AM [facility] MCV 88.5 79.0 - 98.0 FL LAB HEMETOLOGY METHOD 05/24/2024 7:41 AM [facility] MCH 29.9 27.0 - 32.0 pcg LAB HEMETOLOGY METHOD 05/24/2024 7:41 AM [facility] MCHC 33.7 32.0 - 37.0 g/dL LAB HEMETOLOGY METHOD 05/24/2024 7:41 AM [facility] RDW 13.3 11.0 - 15.0 % LAB HEMETOLOGY METHOD 05/24/2024 7:41 AM [facility] Platelets 316 130 - 400 K/mcL LAB HEMETOLOGY METHOD 05/24/2024 7:41 AM [facility] MPV 9.2 7.0 - 11.0 FL LAB HEMETOLOGY METHOD 05/24/2024 7:41 AM [facility] NRBC 0.0 <1.0 % LAB HEMETOLOGY METHOD 05/24/2024 7:41 AM [facility] NRBC Absolute 0.00 <0.10 K/mcL LAB HEMETOLOGY METHOD 05/24/2024 7:41 AM [facility] Neutrophils Relative 50.7 % LAB HEMETOLOGY METHOD 05/24/2024 7:41 AM [facility] Lymphocytes Relative 31.2 % LAB HEMETOLOGY METHOD 05/24/2024 7:41 AM [facility] Monocytes Relative 14.5 % LAB HEMETOLOGY METHOD 05/24/2024 7:41 AM [facility] Eosinophils Relative 2.0 % LAB HEMETOLOGY METHOD 05/24/2024 7:41 AM [facility] Basophils Relative 1.1 % LAB HEMETOLOGY METHOD 05/24/2024 7:41 AM [facility] Immature Granulocytes Relative 0.5 % LAB HEMETOLOGY METHOD 05/24/2024 7:41 AM [facility] Neutrophils Absolute 3.78 1.50 - 7.00 K/mcL LAB HEMETOLOGY METHOD 05/24/2024 7:41 AM [facility] Lymphocytes Absolute 2.33 1.00 - 5.00 K/mcL LAB HEMETOLOGY METHOD 05/24/2024 7:41 AM [facility] Monocytes Absolute 1.08(H) 0.20 - 1.00 K/mcL LAB HEMETOLOGY METHOD 05/24/2024 7:41 AM [facility] Eosinophils Absolute 0.15 0.00 - 0.50 K/mcL LAB HEMETOLOGY METHOD 05/24/2024 7:41 AM [facility] Basophils Absolute 0.08 0.00 - 0.20 K/mcL LAB HEMETOLOGY METHOD 05/24/2024 7:41 AM [facility] Immature Granulocytes Absolute 0.04(H) 0.00 - 0.03 K/mcL LAB HEMETOLOGY METHOD 05/24/2024 7:41 AM [facility] Blood Venous blood specimen / Unknown Venipuncture / Unknown 05/24/2024 6:38 AM EST 05/24/2024 7:23 AM EST us Wen Calles DO LAB BLOOD ORDERABLES Tanisha l Result [facility] [address] [place] [address], [place] [phone] * (ABNORMAL) Comprehensive metabolic panel (05/24/2024 6:38 AM EST) Sodium 138 133 - 145 mmol/L LAB CHEMISTRY METHOD 05/24/2024 8:08 AM [facility] Potassium 4.2 3.5 - 5.5 mmol/L LAB CHEMISTRY METHOD 05/24/2024 8:08 AM [facility] Chloride 107 96 - 110 mmol/L LAB CHEMISTRY METHOD 05/24/2024 8:08 AM [facility] CO2 24 21 - 32 mmol/L LAB CHEMISTRY METHOD 05/24/2024 8:08 AM [facility] Anion Gap 7 3 - 11 LAB CHEMISTRY METHOD 05/24/2024 8:08 AM [facility] Glucose 92 70 - 100 mg/dL LAB CHEMISTRY METHOD 05/24/2024 8:08 AM [facility] BUN 19 5 - 25 mg/dL LAB CHEMISTRY METHOD 05/24/2024 8:08 AM [facility] Creatinine 0.74 0.70 - 1.30 mg/dL LAB CHEMISTRY METHOD 05/24/2024 8:08 AM [facility] eGFR 96 >=60 mL/min/1. 73m2 LAB CHEMISTRY METHOD 05/24/2024 8:08 AM [facility] Comment:Calculation based on the??Chronic Kidney Disease Epidemiology Collaboration (CKD-EPI) equation refit??without adjustment for race. BUN/Creatinine Ratio 25.7 LAB CHEMISTRY METHOD 05/24/2024 8:08 AM [facility] Calcium 9.0 8.5 - 10.5 mg/dL LAB CHEMISTRY METHOD 05/24/2024 8:08 AM [facility] AST (SGOT) 32 10 - 42 unit/L LAB CHEMISTRY METHOD 05/24/2024 8:08 AM [facility] ALT (SGPT) 35 10 - 60 unit/L LAB CHEMISTRY METHOD 05/24/2024 8:08 AM [facility] Alkaline Phosphatase 101 42 - 121 unit/L LAB CHEMISTRY METHOD 05/24/2024 8:08 AM [facility] Total Protein 6.5 6.0 - 8.0 g/dL LAB CHEMISTRY METHOD 05/24/2024 8:08 AM [facility] Albumin 3.0(L) 3.2 - 5.0 g/dL LAB CHEMISTRY METHOD 05/24/2024 8:08 AM [facility] Total Bilirubin 0.6 0.0 - 1.4 mg/dL LAB CHEMISTRY METHOD 05/24/2024 8:08 AM [facility] Blood Venous blood specimen / Unknown Venipuncture / Unknown 05/24/2024 6:38 AM EST 05/24/2024 7:23 AM EST us Wen Calles DO LAB BLOOD ORDERABLES Tanisha mccarthy Result [facility] [address] [place] [address], documented in this encounter Visit Diagnoses Diagnosis CVA (cerebral vascular accident) (CMS/HCC)- Primary Unspecified cerebral artery occlusion with cerebral infarction Cerebrovascular accident (CVA), unspecified mechanism (CMS/HCC) documented in this encounter Admitting Diagnoses Diagnosis CVA (cerebral vascular accident) (CMS/HCC) Unspecified cerebral artery occlusion with cerebral infarction documented in this encounter Administered Medications Inactive Administered Medications - up to 3 most recent administrations Medication Order MAR Action Action Date Dose Rate Site aluminum-magnesium hydroxide-simethicone (MAALOX) 200-200-20 mg/5 mL suspension 30 mL 30 mL, oral, Every 4 hours PRN, heartburn, Starting on Thu05/23/24 at 1700 amLODIPine (NORVASC) tablet 5 mg 5 mg, oral, Daily, First dose on Thu05/24/24 at 0900, Indications: hypertensionIndications:hypertension Given 06/15/2024 8:38 AM EST 5 mg Given 06/14/2024 8:36 AM EST 5 mg Given 06/13/2024 8:28 AM EST 5 mg amoxicillin (AMOXIL) capsule 250 mg 250 mg, oral, Every 8 hours scheduled, First dose on Thu05/28/24 at 1400, For 10 days, Indication: Urinary Tract/Genitourinary Given 05/31/2024 6:10 AM EST 250 mg Given 05/30/2024 9:34 PM EST 250 mg Given 05/30/2024 1:57 PM EST 250 mg aspirin chewable tablet 81 mg 81 mg, oral, Daily, First dose on Thu05/24/24 at 0900, Indications: prevention of cerebrovascular accidentIndications:prevention of cerebrovascular accident Given 06/15/2024 8:38 AM EST 81 mg Given 06/14/2024 8:36 AM EST 81 mg Given 06/13/2024 8:28 AM EST 81 mg bisacodyL (DULCOLAX) suppository 10 mg 10 mg, rectal, Daily PRN, constipation, Starting on Thu05/23/24 at 1700 Given 2024 1:48 PM EST 10 mg cefuroxime (CEFTIN) tablet 250 mg 250 mg, oral, 2 times daily before meals, First dose on Thu05/31/24 at 1630, For 7 days, Indication: Urinary Tract/Genitourinary Given 06/07/2024 6:1 8 AM EST 250 mg Given 06/06/2024 5:12 PM EST 250 mg Given 06/06/2024 8:42 AM EST 250 mg dextrose (D50W) 50% injection 12.5 g 12.5 g, intravenous, Every 15 min PRN, low blood sugar, moderate hypoglycemia *Patient is Unconscious, NPO, unable to swallow: BG 54 - 69 mg/dl*, Starting on Thu05/24/24 at 1600, For 1 dose dextrose (D50W) 50% injection 25 g 25 g, intravenous, Every 15 min PRN, severe hypoglycemia *Patient is Unconscious, NPO, unable to swallow: BG LESS than 54 mg/dL*, Starting on Thu05/24/24 at 1600 dextrose 15 gram/60 mL oral solution 15 g 15 g, oral, Every 15 min PRN, low blood sugar, hypoglycemia *Patient conscious AND able to drink and swallow safely*, Starting on Thu05/24/24 at 1600 dextrose 15 gram/60 mL oral solution 30 g 30 g, oral, Every 15 min PRN, low blood sugar, hypoglycemia *Patient conscious AND able to drink and swallow safely*, Starting on Thu05/24/24 at 1600 docusate sodium (COLACE) capsule 100 mg 100 mg, oral, 2 times daily, First dose on Thu05/23/24 at 2100 Given 06/15/2024 8:38 AM EST 100 mg Given 06/14/2024 8:36 AM EST 100 mg Given 06/13/2024 8:28 AM EST 100 mg ezetimibe (ZETIA) tablet 10 mg 10 mg, oral, Daily, First dose on Thu05/24/24 at 0900 Given 06/15/2024 8:38 AM EST 10 mg Given 06/14/2024 8:36 AM EST 10 mg Given 06/13/2024 8:28 AM EST 10 mg Glucagon HCl (rDNA) injection 1 mg 1 mg, intramuscular, Once as needed, low blood sugar, severe hypoglycemia, Starting on Thu05/24/24 at 1600, For 1 dose magnesium hydroxide (MILK OF MAGNESIA) 400 mg/5 mL suspension 30 mL 30 mL, oral, Daily PRN, constipation, Starting on Thu05/23/24 at 1700 Given 05/30/2024 1:57 PM EST 30 mL Given 05/30/2024 8:21 AM EST 30 mL Given 2024 8:18 AM EST 30 mL melatonin tablet 9 mg 9 mg, oral, Nightly PRN, sleep, Starting on Thu05/23/24 at 1659 Given 05/30/2024 9:34 PM EST 9 mg Given 05/29/2024 8:10 PM EST 9 mg Given 05/28/2024 9:08 PM EST 9 mg nystatin (MYCOSTATIN) 100,000 unit/gram powder Topical, 2 times daily, First dose on Thu05/25/24 at 0900, For 30 days, Apply to bilateral groin. Given 06/15/2024 8:42 AM EST Given 06/14/2024 8:39 PM EST 1 Application Given 06/14/2024 8:37 AM EST polyethylene glycol (MIRALAX) packet 17 g 17 g, oral, Daily, First dose on Thu05/26/24 at 0915 Given 06/15/2024 8:38 AM EST 17 g Given 06/14/2024 8:37 AM EST 17 g Given 06/13/2024 8:28 AM EST 17 g senna (SENOKOT) tablet 17.2 mg 17.2 mg (2 tablet), oral, Nightly, First dose on Thu05/26/24 at 2100, For 20 days Given 06/12/2024 8:12 PM EST 17.2 mg Given 06/08/2024 9:04 PM EST 17.2 mg Given 06/07/2024 8:18 PM EST 17.2 mg documented in this encounter Discontinued Medications Medication Sig Discontinue Reason Start Date End Da te aspirin 81 mg chewable tablet Chew 1 tablet (81 mg total) 1 (one) time each day. 05/24/2024 06/14/2024 ezetimibe (ZETIA) 10 mg tablet Take 1 tablet (10 mg total) by mouth 1 (one) time each day. 05/24/2024 06/14/2024 senna (SENOKOT) 8.6 mg tablet Take 2 tablets (17.2 mg total) by mouth at bedtime. Stop Taking at Discharge 06/14/2024 06/15/2024 amLODIPine (NORVASC) 5 mg tabletIndications:hype rtension Take 1 tablet (5 mg total) by mouth 1 (one) time each day. Due in AM Stop Taking at Discharge 05/24/2024 06/15/2024 melatonin 3 mg tablet Take 10 mg by mouth at bedtime as needed for sleep. Med rec reads 10 mg at HS PRN Stop Taking at Discharge 05/23/2024 06/15/2024 documented as of this encounter Historical Medications * This list may reflect changes made after this encounter. melatonin 3 mg tablet Take 10 mg by mouth at bedtime as needed for sleep. Med rec reads 10 mg at HS PRN 05/23/2024 06/15/2024 ezetimibe (ZETIA) 10 mg tablet Take 1 tablet (10 mg total) by mouth 1 (one) time each day. 05/24/2024 06/14/2024 aspirin 81 mg chewable tablet Chew 1 tablet (81 mg total) 1 (one) time each day. 05/24/2024 06/14/2024 amLODIPine (NORVASC) 5 mg tabletIndications :hypertension Take 1 tablet (5 mg total) by mouth 1 (one) time each day. Due in AM 05/24/2024 06/15/2024 added in this encounter Active and Recently Administered Medications Times are shown in EST. Scheduled Medication Order 06/13/2024 06/14/2024 06/15/2024 amLODIPine (NORVASC) tablet 5 mg 5 mg, oral, Daily, First dose on Thu05/24/24 at 0900, Indications: hypertension 0828 (Given - Provider: Wisam Garnica RN) 0836 (Given - Provider: Wisam Garnica RN) 0838 (Given - Provider: Wisam Garnica RN) aspirin chewable tablet 81 mg 81 mg, oral, Daily, First dose on Thu05/24/24 at 0900, Indications: prevention of cerebrovascular accident 0828 (Given - Provider: Wisam Garnica RN) 0836 (Given - Provider: Wisam Garnica RN) 0838 (Given - Provider: Wisam Garnica RN) docusate sodium (COLACE) capsule 100 mg 100 mg, oral, 2 times daily, First dose on Thu05/23/24 at 2100 0828 (Given - Provider: Wisam Garnica RN)210 (Not Given - Provider: Alexandria Asencio RN - Reason: Other - Comment: not necessary today) 0836 (Given - Provider: Wisam Garnica RN)2035 (Not Given - Provider: Tameka Gordon RN - Reason: Patient/Resident/Age nt refused - education provided ) 0838 (Given - Provider: Wisam Garnica RN) ezetimibe (ZETIA) tablet 10 mg 10 mg, oral, Daily, First dose on Thu05/24/24 at 0900 0828 (Given - Provider: Wisam Garnica, OSCAR) 0836 (Given - Provider: Wisam Garnica RN) 0838 (Given - Provider: Wisma Garnica RN) nystatin (MYCOSTATIN) 100,000 unit/gram powder Topical, 2 times daily, First dose on Thu05/25/24 at 0900, For 30 days, Apply to bilateral groin. 08 (Given - Provider: Wisam Garnica RN)2108 (Not Given - Provider: Alexandria Asencio RN - Reason: Other - Comment: applied earlier) 0837 (Given - Provider: Wisam Garnica RN)2038 (Given - Provider: Tameka Gordon RN) 0842 (Given - Provider: Wisam Garnica RN) polyethylene glycol (MIRALAX) packet 17 g 17 g, oral, Daily, First dose on Thu05/26/24 at 0915 0828 (Given - Provider: Wisam Garnica RN) 0837 (Given - Provider: Wisam Garnica RN) 0838 (Given - Provider: Wisam Garnica RN) senna (SENOKOT) tablet 17.2 mg 17.2 mg (2 tablet), oral, Nightly, First dose on Thu05/26/24 at 2100, For 20 days 2109 (Not Given - Provider: Alexandria Asencio RN - Reason: Other - Comment: not necessary today) 2036 (Not Given - Provider: Tameka Gordon RN - Reason: Patient/Resident/Age nt refused - education provided ) PRN Medication Order 06/13/2024 06/14/2024 06/15/2024 aluminum-magnesium hydroxide-simethicone (MAALOX) 200-200-20 mg/5 mL suspension 30 mL 30 mL, oral, Every 4 hours PRN, heartburn, Starting on Thu05/23/24 at 1700 bisacodyL (DULCOLAX) suppository 10 mg 10 mg, rectal, Daily PRN, constipation, Starting on Thu05/23/24 at 1700 dextrose (D50W) 50% injection 12.5 g 12.5 g, intravenous, Every 15 min PRN, low blood sugar, moderate hypoglycemia *Patient is Unconscious, NPO, unable to swallow: BG 54 - 69 mg/dl*, Starting on Thu05/24/24 at 1600, For 1 dose dextrose (D50W) 50% injection 25 g 25 g, intravenous, Every 15 min PRN, severe hypoglycemia *Patient is Unconscious, NPO, unable to swallow: BG LESS than 54 mg/dL*, Starting on Thu05/24/24 at 1600 dextrose 15 gram/60 mL oral solution 15 g 15 g, oral, Every 15 min PRN, low blood sugar, hypoglycemia *Patient conscious AND able to drink and swallow safely*, Starting on Thu05/24/24 at 1600 dextrose 15 gram/60 mL oral solution 30 g 30 g, oral, Every 15 min PRN, low blood sugar, hypoglycemia *Patient conscious AND able to drink and swallow safely*, Starting on Thu05/24/24 at 1600 Glucagon HCl (rDNA) injection 1 mg 1 mg, intramuscular, Once as needed, low blood sugar, severe hypoglycemia, Starting on Thu05/24/24 at 1600, For 1 dose magnesium hydroxide (MILK OF MAGNESIA) 400 mg/5 mL suspension 30 mL 30 mL, oral, Daily PRN, constipation, Starting on Thu05/23/24 at 1700 documented in this encounter Orders Medications Ordered That Arpan ht Not Have Been Administered Count Last Ordered Date First Ordered Date dextrose (D50W) 50% injection 12.5 g 07/2024 dextrose (D50W) 50% injection 25 g 1 2024 dextrose 15 gram/60 mL oral solution 15 g 05/24/2024 dextrose 15 gram/60 mL oral solution 30 g 05/24/2024 Glucagon HCl (rDNA) injection 1 mg 2024 insulin lispro injection 2-12 Units 05/24 acetaminophen (TYLENOL) tablet 650 mg 06/2024 aluminum-magnesium hydroxide -simethicone (MAALOX) 200-200-20 mg/5 mL suspension 30 mL 05/23/2024 Lab Orders Without Results Count Last Ordered D ate First Ordered Date POCT GLUCOSE, BLOOD 18 05/27/2024 05/24/19 Nursing Count Last Ordered Date First Orde red Date BLADDER SCAN 1 2024 Consult Count Last Ordered Date First Orde red Date IP CONSULT TO NUTRITION SERVICES 1 06/03/19 25 BULK FLUIDS HANDLER Count Last Ordered Date First Orde red Date BULK FLUIDS HANDLER EVAL AND TREAT 1 05/24/2024 Admission Count Last Ordered Date First Orde red Date ADMIT TO INPATIENT REHAB 1 05/23/2024 Discharge Count Last Ordered Date First Orde red Date DISCHARGE PATIENT 1 06/15/2024 documented in this encounter Additional Health Concerns Assessment Noted Time PHQ-9 Depression Total Score: 0 06/14/19 2:38 PM EST documented as of this encounter Care Teams Deputy Brand Inspector Relationship Specialty Start Date End Date Sami Najera MD [address] [place] [address] PCP - General Internal Medicine 05/19/24 documented as of this encounter
== END 2024-06-21 14:08 | disposition home or self-care (01) ==
PROVIDERS: PCP Internal Medicine; Visit Provider Internal Medicine
DX: I63.9 Cerebral infarction, unspecified (principal)

== ENCOUNTER → 2024-06-21 13:43 | Outpatient (BNVA) | payer MEDICARE, SELFPAY | PROVIDERS: PCP Internal Medicine; Visit Provider Internal Medicine | DX: I63.9 Cerebral infarction, unspecified (principal) | CPT/HCPCS: 99212 ==

== ENCOUNTER 2024-08-11 12:03 | Outpatient (AMB) | payer MEDICARE, SELFPAY ==
--- NOTE | 2024-08-11 12:31 | A.OFFPC_ITS ---
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: No Accompanied by: Family/Other Allergies acetaminophen [Tylenol] Allergy (Unknown, Verified 08/11/24 12:53) rash aspirin Allergy (Unknown, Verified 08/11/24 12:53) bruising atorvastatin Allergy (Unknown, Verified 08/11/24 12:53) muscle aches, forgetfulness glipizide Allergy (Unknown, Verified 08/11/24 12:53) anxiety melatonin Adverse Reaction (Intermediate, Verified 08/11/24 12:53) Nightmare rosuvastatin Adverse Reaction (Intermediate, Verified 08/11/24 12:53) Anxiety Medication List - Last Reconciled 08/11/24 by Jaun Bains MD amlodipine 5 mg See Protocol PO DAILY aspirin 81 mg PO DAILY ezetimibe 10 mg PO DAILY Tobacco use date assessed: 08/11/24 Last assessed Fall Risk: 08/11/24 Dental Screening Dental Screen Date: 08/11/[address] Najera HPI Details Patient comes in today for his follow up visit - is transferring care over from Dr. Najera, who retired from the practice last month Patient states that he feels okay and that he has a couple of scheduled physical therapy sessions left States that he has almost completely recovered physically from his CVA and he is presently able to walk and move around with only a cane He denies any headaches or dizziness Denies any chest pains, no SOB No nausea/vomiting, no abdominal pain No change in bowel habits noted He needs a couple of his Rx refilled He did not have any follow up labs done recently [facility] Medical History (Updated 08/14/24 @ 12:28 by Jaun Bains MD) Obesity (BMI 30-39.9) Essential hypertension Ischemic cerebrovascular accident (CVA) Osteoporosis Migraine Anxiety Obesity Screening for colon cancer Screening for prostate cancer Screening for diabetes mellitus Hyperlipidemia Surgical History History of amputation of finger of right hand History of colonoscopy History of tooth extraction History of cholecystectomy History of surgery on arm History of repair of rotator cuff Family History Father CVD (cardiovascular disease) Mother Stroke Diabetes Brother Coronary artery sclerosis Social History Household Members: Spouse Housing: Other Housing Other:: [facility] Do you presently have visiting nurse or other home services: No Alcohol intake: never Patient Tobacco Use Status: Former Tobacco user Tobacco use type: Pipe e-Cigarette/Vaping Use: Never Used Second Hand Smoke Exposure: Yes service: Yes Current occupational 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 1. Little interest or pleasure in doing things: not at all 2. Feeling down, depressed, or hopeless: not at all 3. Trouble falling or staying asleep, or sleeping too much: not at all 4. Feeling tired or having little energy: not at all 5. Poor appetite or overeating: not at all 6. Feeling bad about yourself - or that you are a failure or have let yourself or your family down: not at all 7. Trouble concentrating on things, such as reading the newspaper or watching television: not at all 8. Moving or speaking so slowly that other people could have noticed. Or the opposite - being so fidgety or restless that you have been moving around a lot more than usual: not at all 9. Thoughts that you would be better off or of hurting yourself in some way: not at all Total score: 0 Depression Screening Interpretation: Negative Depression Screening Done: Yes 32296 - PHQ-9 Billing: Yes Source: Developed by Drs. Dawson Stout, Christen Guzman, James Pena and colleagues, with an educational fariba from [employer]. Thrive Questionnaire Date Thrive assessed: 08/11/24 I am a: Patient What is your living situation today?: I have a steady place to live Within the past 12 months, did the food you bought not last and you didn't have the money to get more?: Never true Within the past 12 months, did you worry whether your food would run out before you got money to buy more?: Never true Do you have trouble paying for medicines?: No Do you have trouble getting transportation to medical appointments?: No Do you have trouble paying your heating and electricity bill?: No Do you have trouble taking care of your child, family member or friend?: No Do you have trouble with day-to-day activities such as bathing, preparing meals, shopping, managing finances, etc.?: No Are you currently unemployed and looking for a job?: No Are you interested in more education?: No Please select the resources that you would like help with: None Currently or been in a relationship where the following occur: No concerns reported THRIVE Score: 0 AUDIT C Alcohol Use Questionnaire (AUDIT-C) 1. How often do you have a drink containing alcohol?: Monthly or less 2. How many drinks containing alcohol do you have on a typical day when you are drinking?: 1 or 2 3. How often do you have six or more drinks on one occasion?: Never Total Score: 1 Score Reviewed/Action Taken: Yes SERGEY-7 AMB Questionnaire SERGEY-7 Date SERGEY - 7 assessed: 08/11/24 Feeling nervous, anxious, or on edge: 0 = Not at all Not being able to stop or control worryin = Not at all Worrying too much about different things: 0 = Not at all Trouble relaxin = Not at all Being so restless that it is hard to sit still: 0 = Not at all Becoming easily annoyed or irritable: 0 = Not at all Feeling afraid as if something awful might happen: 0 = Not at all Total SERGEY-7 score (0-4 normal; 5-9 mild; 10-14 moderate; 15-21 severe): 0 Source: Developed by Drs. Dawson Stout, Christen Guzman, James Pena and colleagues, with an educational fariba from [employer]. Review of Systems Const Denies chills, Denies fatigue, Denies fever(s) and Denies headache(s) ENT Denies dysphagia, Denies dizziness, Denies otalgia, Denies headache(s), Denies neck pain, Denies odynophagia and Denies sore throat Card Denies chest pain, Denies palpitations and Denies dyspnea Resp Denies chest congestion, Denies cough and Denies dyspnea GI Denies abdominal pain, Denies constipation, Denies dysphagia, Denies heartburn, Denies diarrhea, Denies nausea, Denies odynophagia and Denies vomiting Denies difficulty urinating, Denies dysuria, Denies nocturia and Denies urinary frequency Musc Denies back pain and Denies neck pain Skin/Breast Denies rash Neuro Denies dizziness and Denies headache(s) Endo Denies fatigue and Denies palpitations Physical exam (Primary Care) Vital Signs: Last Vital Signs Pulse 70 08/11/24 12:39 BP 128/70 08/11/24 12:39 Pulse Ox 96 08/11/24 12:39 Oxygen Delivery Method Room Air 08/11/24 12:39 BMI result Body Mass Index 31.1 Tobacco/Smoking Status: Tobacco use Status Tobacco use date assessed 08/11/24 08/11/24 12:44 Patient Tobacco Use Status Former Tobacco user 08/11/24 12:33 Tobacco use type Pipe 08/11/24 12:33 e-Cigarette/Vaping Use Never Used 08/11/24 12:33 PHQ-9: PHQ-9 Score PHQ-9: Total score 0 08/12/24 09:25 Depression Screening Interpretation: Negative Thrive Assessment: Date of Thrive Assessment Date Thrive assessed 08/11/24 08/11/24 12:45 Currently or been in a relationship where the following occur: No concerns reported Const General: no acute distress and alert HENMT Ears: TM's normal bilaterally and EAC's normal Throat: Yes posterior oropharynx normal and Yes tonsils normal (no TP congestion) Neck Neck: Yes supple and No lymphadenopathy Thyroid: Thyroid normal Resp Auscultation: clear to auscultation bilaterally, no rales and no wheezes Cardio Rate: regular rate Rhythm: regular rhythm Heart sounds: no murmurs GI Palpation (GI): Soft to palpation and nontender Auscultation: normal bowel sounds General: Yes no CVA tenderness Back/Spine/Pelvis Back: no CVA tenderness Thoracic/Lumbar Spine: No lumbar spinal tenderness Skin Rashes: no rashes Extrem General: Yes no clubbing, cyanosis or edema Coding Level of Care Code Est Pt Level 4 (49422) Diagnoses Ischemic cerebrovascular accident (CVA) I63.9 Hemiparesis following cerebrovascular accident (CVA) I69.359 Essential hypertension I10 Ex-smoker Z87.891 Obesity (BMI 30-39.9) E66.9 Additional Codes PHQ-9 - 56964 - PHQ-9 Billing: Yes ([id number]) Assessment & Plan Assessment & Plan (1) Ischemic cerebrovascular accident (CVA): Code(s): I63.9 - Cerebral infarction, unspecified Category: Medical Plan: Patient apparently suffered an acute pontine CVA.back in late April 2024 when he presented to the ER with increased fatigue, slurring of speech and memory loss MRI of the brain done at the time revealed a moderate-size right basis pontine acute infarct with mild to moderate cortical atrophy CTA of the head and neck done in April 2024 revealed 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 and left paraclinoid ICA stenosis He was seen by Neurology and was recommended to start taking Aspirin 81 mg QD and to start rehab/PT He was also recommended to start taking medications to help lower his cholesterol levels but he was unable to tolerate both Atorvastatin and Rosuvastatin and he is currently taking Ezetimibe 10 mg QD He has not had any follow-up labs done since - will have him try to get his repeat labs and fasting lipids rechecked in 4 months for follow-up Factor V Leiden was also checked back in April 2024 and test came back negative (2) Hemiparesis following cerebrovascular accident (CVA): Code(s): I69.359 - Hemiplegia and hemiparesis following cerebral infarction affecting un specified side Category: Medical Plan: Patient completed rehab and states that his right-sided weakness have mostly improved with physical therapy and he is currently able to ambulate with just the use of a walking cane (3) Essential hypertension: Code(s): I10 - Essential (primary) hypertension Category: Medical Plan: Reinforced low-sodium diet - goal is systolic BP of 120 mm or less Continue Amlodipine 5 mg QD (4) Ex-smoker: Code(s): Z87.891 - Personal history of nicotine dependence Plan: Have emphasized to patient that he should never go back to smoking (5) Obesity (BMI 30-39.9): Code(s): E66.9 - Obesity, unspecified Category: Medical Plan: Reinforced diet; exercise and weight loss are not practical in this patient at this time given his current condition Plan Follow up in 4 months Orders: Orders TSH reflex Free T4 4 Months E78.00 - Pure hypercholesterolemia, unspecified, I63.9 - Cerebral infarction, unspecified Complete Blood Count Auto Diff 4 Months D64.9 - Anemia, unspecified, I63.9 - Cerebral infarction, unspecified Comprehensive [place]. Panel Fast 4 Months E78.00 - Pure hypercholesterolemia, unspecified, I63.9 - Cerebral infarction, unspecified Lipid Panel 4 Months E78.00 - Pure hypercholesterolemia, unspecified, I63.9 - Cerebral infarction, unspecified UA CC w/rflx Micro + Cult 4 Months I63.9 - Cerebral infarction, unspecified, R30.0 - Dysuria Medications: Changed From ezetimibe 10 mg PO DAILY 30 tabs 0RF To ezetimibe 10 mg PO DAILY 90 days 90 tabs 1RF From amlodipine 5 mg See Protocol PO DAILY 30 tabs 0RF To amlodipine 5 mg See Protocol PO DAILY 90 days 90 tabs 1RF
[2024-08-11 12:39] VITALS: BP 128/70; PULSE 70; O2SAT 96; BMI 31.1
--- OUTSIDE RECORDS SUMMARY | 2024-08-11 14:23 | XMS_ITS | Encounter Summary ---
Author Organization [facility] Address [address] [place] [address] Care Team Providers Care Web Database Developer Name Role Phone Sami Najera MD Primary Care Provider [phone] Reason for Visit * Consultation (Routine) - Authorized Specialty Diagnoses / Procedures Referred By Contac t Referred To Contact Physical Therapy Diagnoses Cerebrovascular accident (CVA), unspecified mechanism (CMS/HCC V24, CMS/[facility] V28) Wen Calles DO [address] [place] [address] Phone: tel: fax: Referral ID Status Reason Start Date Expiration Date Visits Requested Visits Authorized [id number] Authorized Specialty Services Required 05/25/2024 05/25/2025 13 13 Encounter Details Date Type Department Care Team (Latest Contact Info) Description 08/10/2024 10:45 AM EDT Treatment [address] [address] Randall Roe PTA Cerebrovascular accident (CVA), unspecified mechanism (CMS/HCC V24, CMS/HCC V28) (Primary Dx) Social History Tobacco Use Types Packs/Day Years [...] as of this encounter Progress Notes * Randall Roe PTA - 08/10/2024 10:45 AM EDT [facility] - Outpatient PHYSICAL THERAPY DAILY TREATMENT NOTE - OP Date: 08/10/2024 Visit Number: 10 Patient Name: Bob Han : 1950 Age: 74 y.o. Gender: male Diagnosis: ICD-10-CM ICD-9-CM 1. Cerebrovascular accident (CVA), unspecified mechanism (CMS/HCC V24, CMS/HCC V28) I63.9 434.91 Date of Onset/Surgery: 06/22/2024 Referring Provider: Wen Calles DO Insurance: Payor: T MEDICARE ADVANTAGE / Plan: [employer] MED[employer]VANTAGE / Product Type: *No Product type* / Patient Identified by: Randall Roe PTA Language: Speaks and understands German as preferred language with no dry room attendant required Medications: Current Outpatient Medications on File Prior to Visit Medication Sig Dispense Refill amLODIPine (NORVASC) 5 mg tablet Take 1 tablet (5 mg total) by mouth 1 (one) time each day. 30 each0 ezetimibe (ZETIA) 10 mg tablet Take 1 tablet (10 mg total) by mouth 1 (one) time each day. 30 each 0 No current facility-administered medications on file prior to visit. Allergies: is allergic to acetaminophen, atorvastatin, glipizide, and rosuvastatin. Precautions: Fall risk: No SUBJECTIVE Subjective Report: The better I feel and more active I am, the more my back is hurts Chart Reviewed: Yes Pain: Low back - not bad right now TREATMENT INTERVENTION: Nustep at level 5 x 8 min Standing HS stretch, 3x30 secs ea leg Standing hip flexor stretch with foot on 8 in step, 3x30 secs ea leg Lateral step ups onto 8 in step, holding high rail of treadmill x 10 ea side Sit to stand from chair with R foot on 2 in step, 2x10 - 5# weight held against chest Gait x 200 feet with cane in R hand, but not using ASSESSMENT/Response to Treatment Good Pt progressing well. Increased attention to lifting toes of L foot during ambulation, but doesscuff L foot occasionally Patient Education: Education provided: HEP Education Provided To: Patient utilizing Explanation mode(s) of education Response to Education: Verbal Understanding PLAN POC Development/Review: No Change in the Plan of Care; Participants: Patient Interventions Time Entry: Modalities: Therapeutic procedures: Therapeutic Exercise Time Entry: 40 Total Treatment Time: 40 Documentation completed by Randall Roe PTA documented in this encounter Plan of Treatment Upcoming Encounters Date Type Department Care Team (Late st Contact Info) Description 08/12/2024 11:45 AM EDT Treatment [facility] [address] [phone] Randall Roe PTA 08/12/2024 12:30 PM EDT Treatment [facility] [address] [address] Keiko Munoz COTA/L 08/16/2024 12:30 PM EDT Treatment [facility] [address] [address] Dakota Acosta OT 08/16/2024 1:15 PM EDT Treatment [address] [phone] Dawson Small, PT documented as of this encounter Goals Goal Patient Goal Type Associated Problems Recent Progress Patient-Stated? Author Pt goals General Yes Dakota Acosta, OT Note: To have a reasonable level of mobility (pt was walking 2-3 miles in the [facility] [place]) Improved strength in L hand Be able to reach up to wash hair OT STG 6-8 visits General On track( 025 2:55 PM EDT) Yes Dakota Acosta, OT Note: Pt will demo improved AROM in L UE by 10* for increased ease of donning a shirt - met Patient will demo L UE strength improved by 1/2 muscle grade to be able to bath with min A - NOT met, MAX A Patient will demo L edger saw operator strength >= 16# to be able to hold a washcloth for bathing - Met Patient will demo improved FMC as evidenced by ability to perform L 9 hole peg test - Met Patient will demo improved GMC as evidenced by L box and blocks score >= 7 to be able to use L UE to hold a fork for cutting food with R hand - met Patient will perform initial HEP MOD I _met Pt will participate in L UE neuro re-ed to be able to use L UE as a gross assist for ADLs - Met 07/27/24 Pt will demo improved AROM in L UE by 10* to be able to reach items in cabinet Patient will demo L edger saw operator strength >= 24# to be able to hold a cup Patient will demo improved FMC as evidenced by ability to perform L 9 hole peg test <= 50 sec to be able to manipulate fasteners Patient will demo improved GMC as evidenced by L box and blocks score >= 25 to be able to wash dishes Patient will perform upgraded HEP MOD I Pt will participate in L UE neuro re-ed to be able to use L UE as a functional assist for ADLs OT LTG 24 visits General On track( 025 2:55 PM EDT) No Dakota Acosta, OT Note: Patient will demo L UE AROM WFL for basic ADLs, Patient will demo L UE strength WFL for basic ADLs, Patient will demo L edger saw operator strength >= 25 to be able to [...] and Patient will perform HEP MOD I PT LTGs General No Dawson Small, PT Note: Pt will complete TUG with LAD in under 30 seconds mod independent Pt will complete 6 minute walk test with LAD and distance of 700 ft Pt will increase left hip abduction strength to 4/5 for improved hip stability in stance phase of gait to improve ambulation Pt will be independent with HEP documented as of this encounter Visit Diagnoses Diagnosis Cerebrovascular accident (CVA), unspecified mechanism (CMS/HCC V24, CMS/HCC V28)- Primary documented in this encounter Additional Health Concerns Assessment Noted Time PHQ-9 Depression Total Score: 0 06/14/19 25 2:38 PM EST documented as of this encounter Care Teams Web Database Developer Relationship Specialty Start Date End Date Sami Najera MD [address] [place] [address] [place] [id number] PCP - General Internal Medicine 05/19/24 documented as of this encounter
--- OUTSIDE RECORDS SUMMARY | 2024-08-11 14:23 | XMS_ITS | Encounter Summary ---
Author Organization [facility] Address [address] [place] [address] Care Team Providers Care Board Catcher Name Role Phone Sami Najera MD Primary Care Provider [phone] Reason for Visit * Consultation (Routine) - Authorized Specialty Diagnoses / Procedures Referred By Contac t Referred To Contact Occupational Therapy Diagnoses Cerebrovascular accident (CVA), unspecified mechanism (CMS/HCC V24, CMS/HCC V28) Wen Calles, [place] [address] [place] [address] Phone: tel: fax: Referral ID Status Reason Start Date Expiration Date Visits Requested Visits Authorized [id number] Authorized Specialty Services Required 05/25/2024 05/25/2025 25 25 Encounter Details Date Type Department Care Team (Late st Contact Info) Description 08/10/2024 12:30 PM EDT Treatment [facility] Occupational Therapy [address] [place] [phone] Keiko Munoz COTA/Daysi Nunes Social History Tobacco Use Types Packs/Day Years [...] as of this encounter Progress Notes * ROBERT Clarke 08/10/2024 12:30 PM EDT [facility] - Outpatient OCCUPATIONAL THERAPY DAILY TREATMENT NOTE Date: 08/10/2024 Visit Number: 10 Patient Name: Bob Han : 1950 Age: 74 y.o. Gender: male Diagnosis: No diagnosis found. Date of Onset: 05/25/2024 Referring Provider: Wen Calles DO Insurance: Payor: [employer] / Plan: [employer] / Product Type: *No Product type* / Medications: Current Outpatient Medications on File Prior [...] atorvastatin, glipizide, and rosuvastatin. Precautions: None specified SUBJECTIVE Subjective Report: Amalia been going around the house with out a cane pretty good. Chart Reviewed: Yes Pain: 0 TREATMENT INTERVENTION Procedures: Therex- utilizing yellow med ball for bicep curls, chest press, CW/CCW circles, x pattern - issued yellow theraputty for increased universal winding machine operator strength as well as finger strength/coordination and dexterity -UBE for five mintues for increased coordination and strengthening. Pain Reassessment: 0 Assessment/Response To Treatment: Good Educated to continue with HEP, sent home with yellow theraputty for HEP. Patient Education: Education provided: Yes Education Provided To: Patient utilizing Explanation mode(s) of education Response to Education: Good PLAN POC Development/Review: No Change in the Plan of Care; Participants: Patient Equipment Recommended: none; Equipment Provided: none Total Treatment Time: 45 TOTAL TREATMENT TIME: 45 Minutes Documentation completed by ROBERT Clarke documented in this encounter Plan of Treatment Upcoming Encounters Date Type Department Care Team (Late st Contact Info) Description 08/12/2024 11:45 AM EDT Treatment [facility] [address] [phone] Randall Roe 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) Improved strength in L hand Be able [...] met, MAX A Patient will demo L universal winding machine operator strength >= 16# to be able [...] items in cabinet Patient will demo L universal winding machine operator strength >= 24# to be able [...] for basic ADLs, Patient will demo L universal winding machine operator strength >= 25 to be able [...] HEP MOD I PT LTGs General No Landauer, Dawson J, PT Note: Pt will complete TUG with [...] documented as of this encounter Care Teams Board Catcher Relationship Specialty Start Date End Date Sami Najera MD [address] [place] [address] PCP - General Internal Medicine 05/19/24 documented as of this encounter
--- OUTSIDE RECORDS SUMMARY | 2024-08-11 14:23 | XMS_ITS | Clinical Summary ---
Author Organization [facility] Address [address] [place] [address] Phone Care Team Providers Care Security Vehicle Patrol Officer Name Role Phone Sami Najera MD Primary Care Provider [phone] Allergies Active Allergy Reactions Criticality Noted Date Comments Acetaminophen Rash 05/23/2024 Atorvastatin Muscular Issues 05/23/2024 Glipizide Anxiety 05/23/2024 Rosuvastatin Anxiety 05/23/2024 Medications amLODIPine (NORVASC) 5 mg tabletIndicatio ns:hypertension Take 1 tablet (5 mg total) by mouth 1 (one) time each day. 30 each 06/15/2024 Active ezetimibe (ZETIA) 10 mg tablet Take 1 tablet (10 mg total) by mouth 1 (one) time each day. 30 each 06/14/2024 Active aspirin 81 mg chewable tabletIndicatio ns:myocardial infarction prevention Chew 1 tablet (81 mg total) 1 (one) time each day. 30 each 06/14/2024 07/15/19 25 docusate sodium (COLACE) 100 mg capsule Take 1 capsule (100 mg total) by mouth 2 (two) times a day. 60 each 06/14/2024 07/15/19 25 polyethylene glycol (MIRALAX) 17 gram packet Take 17 g by mouth 1 (one) time each day. 510 g 06/15/2024 07/16/19 25 Active Problems Problem Noted Date Diagnosed Date CVA (cerebral vascular accident) (CMS/HCC V24, C MS/HCC V28) 05/23/2024 Encounters Date Type Department Care Team Description 08/10/2024 12:30 PM EDT Treatment [facility] Occupational [address] [phone] Keiko Munoz COTA/Daysi Arrived 08/10/2024 10:45 AM EDT Treatment [address] [phone] Randall Roe, PROMOTIONS ASSISTANT SALES MARKETING Cerebrovascular accident (CVA), unspecified mechanism (CMS/HCC V24, CMS/HCC V28) (Primary Dx) 08/05/2024 12:30 PM EDT Treatment [facility] Occupational [address] [phone] Keiko Munoz COTA/L Cerebrovascular accident (CVA), unspecified mechanism (CMS/HCC V24, CMS/HCC V28) (Primary Dx); Left hemiparesis (CMS/HCC V24, CMS/HCC V28) 08/05/2024 11:45 AM EDT Treatment [address] [phone] Randall Roe, PROMOTIONS ASSISTANT SALES MARKETING Cerebrovascular accident (CVA), unspecified mechanism (CMS/HCC V24, CMS/HCC V28) (Primary Dx) 08/01/2024 11:15 AM EDT Treatment [facility] Occupational [address] [phone] Gisele Soriano P, OTR/L Left hemiparesis (CMS/HCC V24, CMS/HCC V28) (Primary Dx); Cerebrovascular accident (CVA), unspecified mechanism (CMS/HCC V24, CMS/HCC V28) 08/01/2024 10:30 AM EDT Treatment [address] [phone] Randall Roe, PROMOTIONS ASSISTANT SALES MARKETING Cerebrovascular accident (CVA), unspecified mechanism (CMS/HCC V24, CMS/HCC V28) (Primary Dx) 07/29/2024 12:45 PM EDT Treatment [facility] Occupational Therapy [address] [place] [phone] Keiko Munoz, DIAZ/L Cerebrovascular accident (CVA), unspecified mechanism (CMS/HCC V24, CMS/HCC V28) (Primary Dx) 07/29/2024 11:45 AM EDT Treatment [address] [phone] Randall Roe PTA Cerebrovascular accident (CVA), unspecified mechanism (CMS/HCC V24, CMS/HCC V28) (Primary Dx) 07/27/2024 1:30 PM EDT Treatment [facility] Occupational Therapy [address] [place] [phone] Keiok Munoz, DIAZ/L Cerebrovascular accident (CVA), unspecified mechanism (CMS/HCC V24, CMS/HCC V28) (Primary Dx) 07/21/2024 12:30 PM EDT Treatment [address] [phone] Dawson Small PT Cerebrovascular accident (CVA), unspecified mechanism (CMS/HCC V24, CMS/HCC V28) (Primary Dx) 07/21/2024 11:15 AM EDT Treatment [facility] Occupational Therapy [address] [place] [phone] Alma Delia Lopes, DIAZ 07/18/2024 10:15 AM EDT Treatment [facility] Occupational Therapy [address] [place] [phone] Alma Delia Lopes, DIAZ 07/15/2024 12:30 PM EDT Treatment [facility] Occupational Therapy [address] [place] [phone] Keiko Munoz, DIAZ/L Cerebrovascular accident (CVA), unspecified mechanism (CMS/HCC V24, CMS/HCC V28) (Primary Dx) 07/15/2024 11:45 AM EDT Treatment [address] [phone] Randall Roe, PROMOTIONS ASSISTANT SALES MARKETING Cerebrovascular accident (CVA), unspecified mechanism (CMS/HCC V24, CMS/HCC V28) (Primary Dx) 07/12/2024 10:45 AM EDT Treatment [address] [phone] Dawson Small, PT Cerebrovascular accident (CVA), unspecified mechanism (CMS/HCC V24, CMS/HCC V28) (Primary Dx) 07/06/2024 10:45 AM EDT Evaluation [facility] Speech [address] [phone] Rose Montez, MAINTENANCE PLANNING CLERK Cognitive communication disorder (Primary Dx); Cerebrovascular accident (CVA), unspecified mechanism (CMS/HCC V24, CMS/HCC V28) 07/06/2024 Plan of Care Documentation [facility] Speech [address] [phone] 07/04/2024 2:00 PM EDT Treatment [address] [phone] Randall Roe, PROMOTIONS ASSISTANT SALES MARKETING Cerebrovascular accident (CVA), unspecified mechanism (CMS/HCC V24, CMS/HCC V28) (Primary Dx) 06/29/2024 12:30 PM EDT Treatment [facility] Occupational Therapy [address] [place] [address] [phone] Dakota Acosta, OT Cerebrovascular accident (CVA), unspecified mechanism (CMS/HCC V24, CMS/HCC V28) (Primary Dx) 06/27/2024 11:00 AM EDT Treatment [address] [phone] Teresa Garner, PT Cerebrovascular accident (CVA), unspecified mechanism (CMS/HCC V24, CMS/HCC V28) (Primary Dx) 06/22/2024 12:45 PM EST Evaluation [address] [phone] Dawson Small, PT Cerebrovascular accident (CVA), unspecified mechanism ([facility] V24, [facility] V28) 06/20/2024 12:00 PM EST Evaluation [facility] Occupational Therapy [address] [phone] Dakota Acosta OT Cerebrovascular accident (CVA), unspecified mechanism ([facility] V24, [facility] V28) 06/20/2024 Plan of Care Documentation [facility] Occupational Therapy [address] [phone] 06/08/2024 Plan of Care Documentation [facility] Inpatient Rehab [address] [place] [phone] 05/31/2024 Plan of Care Documentation [facility] Inpatient Rehab [address] [place] [phone] 05/25/2024 Plan of Care Documentation [facility] Inpatient Rehab [address] [place] [phone] 05/23/2024 4:44 PM EST - 06/15/2024 11:25 AM EST Hospital Encounter [facility] Inpatient Rehab [address] [place] [phone] Wen Calles DO Cerebrovascular accident (CVA), unspecified mechanism ([facility] V24, [facility] V28) (Primary Dx) Discharge Disposition: Home or Self [...] Info) Description 08/12/2024 11:45 AM EDT Treatment [facility] Outpatient Rehabilitation [facility] [address] [phone] Randall Roe PTA 08/12/2024 12:30 PM EDT Treatment [facility] Occupational Therapy [address] [phone] Keiko Munoz COTA/L 08/16/2024 12:30 PM EDT Treatment [facility] Occupational Therapy [address] [phone] Dakota Acosta, OT 08/16/2024 1:15 PM EDT Treatment [facility] [address] [phone] Dawson Small, PT Health Maintenance Due Date Last Done Comments Diabetes: Annual Foot Exam 1961 Diabetes: Annual Retina Eye Exam 1961 Zoster Vaccines (1 of 2) 2001 Pneumococcal Vaccine: 50+ Years (2 of 2 - PCV) 05/24/2020 05/24/2019 COVID-19 Vaccine ( - season) 2023 07/12/2021, 08/29/2020, 08/01/2020 Abdominal Aortic Aneurysm (AAA) Screen 05/19/2024 Cholesterol Screening (Lipid Panel) 05/19/2024 Colorectal Cancer Screening: Colonoscopy 05/19/2024 Hepatitis C Screening 05/19/2024 Medicare Annual Wellness Visit 05/19/2024 Diabetes: Annual Urine Albumin-Creatinine Ratio (uACR) 06/01/2024 Diabetes: Blood Sugar Control Test (HGBA1C) 06/01/2024 Influenza Vaccine (Season Ended) 2024 04/17/2021, 02/24/2020, 02/19/2020, Additional history exists Diabetes: Annual GFR (Glomerular Filtration Rate) 06/07/2025 06/07/2024, 06/01/2024, 05/29/2024, Additional history exists Hypertension/CHF/CAD Annual BMP Blood Test 06/07/2025 06/07/2024, 06/01/2024, 05/29/2024, Additional history exists Depression Screening 06/14/2025 06/14/2024 Social Influencers of Health Screening 06/14/2025 06/14/2024 Falls Risk Assessment 06/15/2025 06/15/2024 RSV Immunization Adult Patients (1 - 1-dose 75+ series) 2026 DTaP,Tdap,and [...] age to complete this topic Meningococcal B Vaccine Aged Out No l onger eligible based on patient's age to complete [...] (pt was walking 2-[facility] [employer]IST[employer]) Improved strength in L hand Be able [...] met, MAX A Patient will demo L size tester strength >= 16# to be able to [...] items in cabinet Patient will demo L size tester strength >= 24# to be able to [...] for basic ADLs, Patient will demo L size tester strength >= 25 to be able to [...] ambulation Pt will be independent with HEP Procedures Procedure Name Priority Date/Time Associated Diagnosis [...] period is included. [facility] WBC 7.9 4.8 - 10.8 K/mcL LAB HEMETOLOGY METHOD 06/07/2024 6:34 AM [facility] RBC 4.70 4.50 - 5.50 M/mcL LAB HEMETOLOGY METHOD 06/07/2024 6:34 AM [facility] Hemoglobin 13.6 13.5 - 17.5 g/dL LAB HEMETOLOGY METHOD 06/07/2024 6:34 AM [facility] Hematocrit 41.2(L) 42.0 - 54.0 % LAB HEMETOLOGY METHOD 06/07/2024 6:34 AM [facility] MCV 87.5 79.0 - 98.0 FL LAB HEMETOLOGY METHOD 06/07/2024 6:34 AM [facility] MCH 28.9 27.0 - 32.0 pcg LAB HEMETOLOGY METHOD 06/07/2024 6:34 AM [facility] MCHC 33.0 32.0 - 37.0 g/dL LAB HEMETOLOGY METHOD 06/07/2024 6:34 AM [facility] RDW 12.8 11.0 - 15.0 % LAB HEMETOLOGY METHOD 06/07/2024 6:34 AM [facility] Platelets 384 130 - 400 K/mcL LAB HEMETOLOGY METHOD 06/07/2024 6:34 AM EST [facility] MPV 8.5 7.0 - 11.0 FL LAB HEMETOLOGY METHOD 06/07/2024 6:34 AM EST [facility] NRBC 0.0 <1.0 % LAB HEMETOLOGY METHOD 06/07/2024 6:34 AM EST [facility] NRBC Absolute 0.00 <0.10 K/mcL LAB HEMETOLOGY METHOD 06/07/2024 6:34 AM EST [facility] Blood Venous blood specimen / Unknown Venipuncture / Unknown 06/07/2024 5:45 AM EST 06/07/2024 6:26 AM EST Malena Soto NP LAB BLOOD ORDERABLES Final Result [facility] [address] [place] [address], [place] [phone] * (ABNORMAL) Comprehensive metabolic panel (06/07/2024 5:45 AM EST) Only the most recent of3 resultswithin the time period is included. Sodium 134 133 - 145 mmol/L LAB CHEMISTRY METHOD 06/07/2024 7:10 AM [facility] Potassium 4.4 3.5 - 5.5 mmol/L LAB CHEMISTRY METHOD 06/07/2024 7:10 AM [facility] Chloride 104 96 - 110 mmol/L LAB CHEMISTRY METHOD 06/07/2024 7:10 AM [facility] CO2 28 21 - 32 mmol/L LAB CHEMISTRY METHOD 06/07/2024 7:10 AM [facility] Anion Gap 2(L) 3 - 11 LAB CHEMISTRY METHOD 06/07/2024 7:10 AM [facility] Glucose 89 70 - 100 mg/dL LAB CHEMISTRY METHOD 06/07/2024 7:10 AM [facility] BUN 20 5 - 25 mg/dL LAB CHEMISTRY METHOD 06/07/2024 7:10 AM [facility] Creatinine 0.78 0.70 - 1.30 mg/dL LAB CHEMISTRY METHOD 06/07/2024 7:10 AM [facility] eGFR 94 >=60 mL/min/1. 73m2 LAB CHEMISTRY METHOD 06/07/2024 7:10 AM [facility] Comment:Calculation based on the??Chronic Kidney Disease Epidemiology Collaboration (CKD-EPI) equation refit??without adjustment for race. BUN/Creatinine Ratio 25.6 LAB CHEMISTRY METHOD 06/07/2024 7:10 AM [facility] Calcium 9.4 8.5 - 10.5 mg/dL LAB CHEMISTRY METHOD 06/07/2024 7:10 AM [facility] AST (SGOT) 33 10 - 42 unit/L LAB CHEMISTRY METHOD 06/07/2024 7:10 AM [facility] ALT (SGPT) 51 10 - 60 unit/L LAB CHEMISTRY METHOD 06/07/2024 7:10 AM [facility] Alkaline Phosphatase 114 42 - 121 unit/L LAB CHEMISTRY METHOD 06/07/2024 7:10 AM [facility] Total Protein 6.8 6.0 - 8.0 g/dL LAB CHEMISTRY METHOD 06/07/2024 7:10 AM [facility] Albumin 2.9(L) 3.2 - 5.0 g/dL LAB CHEMISTRY METHOD 06/07/2024 7:10 AM [facility] Total Bilirubin 0.5 0.0 - 1.4 mg/dL LAB CHEMISTRY METHOD 06/07/2024 7:10 AM [facility] Blood Venous blood specimen / Unknown Venipuncture / Unknown 06/07/2024 5:45 AM EST 06/07/2024 6:23 AM EST Malena Soto LAB BLOOD ORDERABLES Final Result Performing Organization Address [facility]/ZIP Co de Phone Number [facility] [address] [place] [address], [place] [phone] * SST tube (05/29/2024 5:59 AM EST) Extra Tube Hold for add-ons. 05/29/2024 8:01 AM EST [facility] Comment:Auto resulted. Blood Venous blood specimen / Unknown 05/29/2024 5:59 AM EST 05/29/2024 6:14 AM EST Wen Calles LAB BLOOD ORDERABLES Tanisha l Result Performing Organization Address [facility] Co de Phone Number [facility] [address] [place] [address], [place] [phone] * Lavender tube (05/29/2024 5:59 AM EST) Extra Tube Hold for add-ons. 05/29/2024 8:01 AM EST [facility] Comment:Auto resulted. Blood Venous blood specimen / Unknown 05/29/2024 5:59 AM EST 05/29/2024 6:14 AM EST Wen Calles LAB BLOOD ORDERABLES Tanisha l Result Performing Organization Address City/[facility]/ZIP Co de Phone Number [facility] [address] [place] [address], [place] [phone] * (ABNORMAL) Basic metabolic panel (05/29/2024 5:56 AM EST) Sodium 131(L) 133 - 145 mmol/L LAB CHEMISTRY METHOD 05/29/2024 6:44 AM EST [facility] Potassium 4.0 3.5 - 5.5 mmol/L LAB CHEMISTRY METHOD 05/29/2024 6:44 AM [facility] Chloride 99 96 - 110 mmol/L LAB CHEMISTRY METHOD 05/29/2024 6:44 AM [facility] CO2 27 21 - 32 mmol/L LAB CHEMISTRY METHOD 05/29/2024 6:44 AM [facility] Anion Gap 5 3 - 11 LAB CHEMISTRY METHOD 05/29/2024 6:44 AM [facility] Glucose 96 70 - 100 mg/dL LAB CHEMISTRY METHOD 05/29/2024 6:44 AM [facility] BUN 26(H) 5 - 25 mg/dL LAB CHEMISTRY METHOD 05/29/2024 6:44 AM [facility] Creatinine 0.80 0.70 - 1.30 mg/dL LAB CHEMISTRY METHOD 05/29/2024 6:44 AM [facility] eGFR 93 >=60 mL/min/1. 73m2 LAB CHEMISTRY METHOD 05/29/2024 6:44 AM [facility] Comment:Calculation based on the??Chronic Kidney Disease Epidemiology Collaboration (CKD-EPI) equation refit??without adjustment for race. BUN/Creatinine Ratio 32.5 LAB CHEMISTRY METHOD 05/29/2024 6:44 AM [facility] Calcium 9.0 8.5 - 10.5 mg/dL LAB CHEMISTRY METHOD 05/29/2024 6:44 AM [facility] Blood Venous blood specimen / Unknown Venipuncture / Unknown 05/29/2024 5:56 AM EST 05/29/2024 6:13 AM EST us Malena Soto NP LAB BLOOD ORDERABLES Final Result [facility] [address] [place] [address], [place] [phone] * (ABNORMAL) Urinalysis with reflex microscopic and culture (05/27/2024 3:03 PM EST) Specific [place] Urine 1.023 1.003 - 1.030 LAB URINALYSIS - AUTOMATED METHOD 05/27/2024 3:48 PM [facility] pH, Urine 5.5 5.0 - 8.0 pH LAB URINALYSIS - AUTOMATED METHOD 05/27/2024 3:48 PM [facility] Leukocytes, Urine Small(A) Negative LAB URINALYSIS - AUTOMATED METHOD 05/27/2024 3:48 PM [facility] Nitrite, Urine Positive(A) Negative LAB URINALYSIS - AUTOMATED METHOD 05/27/2024 3:48 PM [facility] Protein, Urine Trace <=Trace mg/dL LAB URINALYSIS - AUTOMATED METHOD 05/27/2024 3:48 PM [facility] Glucose, Urine Negative Negative mg/dL LAB URINALYSIS - AUTOMATED METHOD 05/27/2024 3:48 PM [facility] Ketones, Urine Trace(A) Negative mg/dL LAB URINALYSIS - AUTOMATED METHOD 05/27/2024 3:48 PM [facility] Urobilinogen , Urine 1.0 0.2 - 1.0 mg/dL LAB URINALYSIS - AUTOMATED METHOD 05/27/2024 3:48 PM [facility] Bilirubin, Urine Negative Negative LAB URINALYSIS - AUTOMATED METHOD 05/27/2024 3:48 PM [facility] Blood, Urine Moderate(A) Negative LAB URINALYSIS - AUTOMATED METHOD 05/27/2024 3:48 PM [facility] RBC, Urine 3.2 0 - 4 /HPF LAB URINALYSIS - AUTOMATED METHOD 05/27/2024 3:48 PM [facility] WBC, Urine 27.2(H) 0 - 4 /HPF LAB URINALYSIS - AUTOMATED METHOD 05/27/2024 3:48 PM [facility] Squamous Epithelial, Urine 6 0 - 60 /LPF LAB URINALYSIS - AUTOMATED METHOD 05/27/2024 3:48 PM [facility] Bacteria, Urine Many(A) Negative /HPF LAB URINALYSIS - AUTOMATED METHOD 05/27/2024 3:48 PM [facility] Hyaline Casts, Urine 2.4 0 - 3 /LPF LAB URINALYSIS - AUTOMATED METHOD 05/27/2024 3:48 PM [facility] Urine Urine specimen obtained by clean catch procedure / Unknown Non-blood Collection / Unknown 05/27/2024 3:03 PM EST 05/27/2024 3:11 PM EST Pretty REYES LAB URINE ORDERABLES Final R esult Performing Organization Address City/[facility]/ZIP Co de Phone Number [facility] [address] [place] [address], [place] [phone] * Abdalla urine culture tube (05/27/2024 3:03 PM EST) Extra Tube Hold for add-ons. 05/27/2024 5:02 PM [facility] Comment:Auto resulted. Urine Urine specimen obtained by clean catch procedure / Unknown Non-blood Collection / Unknown 05/27/2024 3:03 PM EST 05/27/2024 3:11 PM EST Pretty REYES LAB URINE ORDERABLES Final R esult [facility] [address] [place] [address], [place] [phone] * (ABNORMAL) Culture urine (05/27/2024 3:03 PM EST) Culture, Urine >100,000 CFU/mL Escherichia coli(A) ARNEL 05/29/2024 9:41 AM [facility] Urine Urine specimen obtained by [...] MICROBIOLOGY - GENERAL O RDERABLES Final Result [facility] [address] [place] [address], * (ABNORMAL) POCT Glucose, blood (05/27/2024 7:12 AM EST) Only the most recent of11 resultswithin the time period is included. [facility] Signature Glucose POCT 106(H) 70 - 100 mg/dL 05/27/2024 7:13 AM EST [facility] Blood Capillary blood specimen / Unknown 05/27/2024 7:12 AM EST 05/27/2024 7:14 AM EST Wen Calles DO LAB POINT OF CARE TEST DOCKED DEVICE UNSOLICITED RESULTS Final Result [facility] [address] [place] [address], * (ABNORMAL) CBC auto differential (05/24/2024 6:38 AM EST) WBC 7.5 4.8 - 10.8 K/mcL LAB HEMETOLOGY METHOD 05/24/2024 7:41 AM [facility] RBC 4.60 4.50 - 5.50 M/mcL LAB HEMETOLOGY METHOD 05/24/2024 7:41 AM [facility] Hemoglobin 13.8 13.5 - 17.5 g/dL LAB HEMETOLOGY METHOD 05/24/2024 7:41 AM [facility] Hematocrit 40.9(L) 42.0 - 54.0 % LAB HEMETOLOGY METHOD 05/24/2024 7:41 AM [facility] MCV 88.5 79.0 - 98.0 FL LAB HEMETOLOGY METHOD 05/24/2024 7:41 AM [facility] MCH 29.9 27.0 - 32.0 pcg LAB HEMETOLOGY METHOD 05/24/2024 7:41 AM [facility] MCHC 33.7 32.0 - 37.0 g/dL LAB HEMETOLOGY METHOD 05/24/2024 7:41 AM [facility] RDW 13.3 11.0 - 15.0 % LAB HEMETOLOGY METHOD 05/24/2024 7:41 AM [facility] Platelets 316 130 - 400 K/mcL LAB HEMETOLOGY METHOD 05/24/2024 7:41 AM [facility] MPV 9.2 7.0 - 11.0 FL LAB HEMETOLOGY METHOD 05/24/2024 7:41 AM [facility] NRBC 0.0 <1.0 % LAB HEMETOLOGY METHOD 05/24/2024 7:41 AM [facility] NRBC Absolute 0.00 <0.10 K/mcL LAB HEMETOLOGY METHOD 05/24/2024 7:41 AM [facility] Neutrophils Relative 50.7 % LAB HEMETOLOGY METHOD 05/24/2024 7:41 AM [facility] Lymphocytes Relative 31.2 % LAB HEMETOLOGY METHOD 05/24/2024 7:41 AM [facility] Monocytes Relative 14.5 % LAB HEMETOLOGY METHOD 05/24/2024 7:41 AM [facility] Eosinophils Relative 2.0 % LAB HEMETOLOGY METHOD 05/24/2024 7:41 AM [facility] Basophils Relative 1.1 % LAB HEMETOLOGY METHOD 05/24/2024 7:41 AM [facility] Immature Granulocytes Relative 0.5 % LAB HEMETOLOGY METHOD 05/24/2024 7:41 AM [facility] Neutrophils Absolute 3.78 1.50 - 7.00 K/mcL LAB HEMETOLOGY METHOD 05/24/2024 7:41 AM [facility] Lymphocytes Absolute 2.33 1.00 - 5.00 K/mcL LAB HEMETOLOGY METHOD 05/24/2024 7:41 AM [facility] Monocytes Absolute 1.08(H) 0.20 - 1.00 K/mcL LAB HEMETOLOGY METHOD 05/24/2024 7:41 AM [facility] Eosinophils Absolute 0.15 0.00 - 0.50 K/mcL LAB HEMETOLOGY METHOD 05/24/2024 7:41 AM [facility] Basophils Absolute 0.08 0.00 - 0.20 K/mcL LAB HEMETOLOGY METHOD 05/24/2024 7:41 AM [facility] Immature Granulocytes Absolute 0.04(H) 0.00 - 0.03 K/mcL LAB HEMETOLOGY METHOD 05/24/2024 7:41 AM EST [facility] Blood Venous blood specimen / Unknown Venipuncture / Unknown 05/24/2024 6:38 AM EST 05/24/2024 7:23 AM EST us Wen Calles DO LAB BLOOD ORDERABLES Tanisha l Result [facility]) [facility] [address] [place] [address], [place] [phone] from Last 3 Months Insurance [employer] Advance Directives Documents on File Type Date Recorded Patient Laboratory Courier Expl anation Advance Directives and Living Will 06/07/2024 8:35 AM [employer] AUTH EXT 2 * Full Code - [...] currently active code status orders. Care Teams Security Vehicle Patrol Officer Relationship Specialty Start Date End Date Sami Najera MD [address] [place] [id number] PCP - General Internal Medicine 05/19/24
== END 2024-08-11 13:09 | disposition home or self-care (01) ==
LOC: HO.HMCH 12:04
PROVIDERS: PCP Internal Medicine; Visit Provider Internal Medicine
DX: I63.9 Cerebral infarction, unspecified (principal); I69.359 Hemiplegia and hemiparesis following cerebral infarction affecting unspecified side; Z68.31 Body mass index [BMI] 31.0-31.9, adult; E66.9 Obesity, unspecified; I10 Essential (primary) hypertension; Z87.891 Personal history of nicotine dependence

== ENCOUNTER → 2024-08-11 12:03 | Outpatient (BNVA) | payer MEDICARE, SELFPAY | PROVIDERS: PCP Internal Medicine; Visit Provider Internal Medicine | DX: I10 Essential (primary) hypertension (principal); E66.9 Obesity, unspecified; D64.9 Anemia, unspecified; E78.00 Pure hypercholesterolemia, unspecified; Z68.31 Body mass index [BMI] 31.0-31.9, adult; Z86.73 Personal history of transient ischemic attack (TIA), and cerebral infarction without residual deficits; Z87.891 Personal history of nicotine dependence | CPT/HCPCS: 96127; 99212 ==

== ENCOUNTER 2024-09-29 14:54 | Outpatient (AMB) | payer MEDICARE, SELFPAY ==
--- NOTE | 2024-09-29 15:10 | A.OFFPC_ITS ---
Vital Signs 09/29/24 15:11 Height 5 ft 6 in Weight 194 lb 2 oz BMI 31.3 BP 120/60 Blood Pressure Location Lt brachial Position Sitting Pulse 78 Pulse Source Pulse Oximeter Temp 97.3 F Temp Source Temporal Artery Scan Pulse Oximetry (%) 96 Oxygen Delivery Method Room Air Intake Visit Reasons: ?UTI Intake Note: Patient is here to follow up on possible UTI for a few weeks. Gauge Operator Required: No Materials Technician: Not Required per policy Accompanied by: Self / Same As Patient Allergies acetaminophen [Tylenol] Allergy (Unknown, Verified 09/29/24 15:21) rash aspirin Allergy (Unknown, Verified 09/29/24 15:21) bruising atorvastatin Allergy (Unknown, Verified 09/29/24 15:21) muscle aches, forgetfulness glipizide Allergy (Unknown, Verified 09/29/24 15:21) anxiety melatonin Adverse Reaction (Intermediate, Verified 09/29/24 15:21) Nightmare rosuvastatin Adverse Reaction (Intermediate, Verified 09/29/24 15:21) Anxiety Medication List - Last Reconciled 09/29/24 by Anya Leon PA-C amlodipine 5 mg See Protocol PO DAILY 90 days aspirin 81 mg PO DAILY ezetimibe 10 mg PO DAILY 90 days Tobacco use date assessed: 09/29/24 Fall risk assessment: No Falls in past year Last assessed Fall Risk: 09/29/24 Dental Screening Dental Screen Date: 08/11/24 HPI ?UTI HPI Details The patient is a 74-year-old male presenting with urinary frequency and sleep disturbances. The urinary frequency began after a hospitalization in April, where the p atient was initially diagnosed with a urinary tract infection. The symptoms persisted despite treatment and have been ongoing since the hospital discharge. The patient reports urinating frequently at night, approximately every hour, which has been a concern since the initial hospital visit. The patient also reports sleep disturbances, which he attributes to a medication he was previously taking. He experiences significant sleep disruption, leading to inadequate rest. The patient has tried non-prescription remedies with limited success and is considering starting trazodone to improve sleep quality. The patient has a history of stroke, which may be contributing to his current urinary symptoms. He was treated in a rehabilitation center post-stroke and has been managing his condition with medication, including blood pressure and cholesterol medications. FORMERLY [facility], [facility] Medical History Urinary frequency Obesity (BMI 30-39.9) Essential hypertension Ischemic cerebrovascular accident (CVA) Osteoporosis Migraine Anxiety Obesity Screening for colon cancer Screening for prostate cancer Screening for diabetes mellitus Hyperlipidemia Surgical History History of amputation of finger of right hand History of colonoscopy History of tooth extraction History of cholecystectomy History of surgery on arm History of repair of rotator cuff Family History Father CVD (cardiovascular disease) Mother Stroke Diabetes Brother Coronary artery sclerosis Social History Household Members: Spouse Housing: Other Housing Other:: [facility] Do you presently have visiting nurse or other home services: No Alcohol intake: never Patient Tobacco Use Status: Former Tobacco user Tobacco use type: Pipe e-Cigarette/Vaping Use: Never Used Second Hand Smoke Exposure: Yes service: Yes Current occupational status: retired Current occupation: rt [employer] and Cognitive needs: Yes ( cane) Hearing needs: Yes Vision needs: Yes (glasses) Questionnaire PHQ-9 Over the last 2 weeks, how often have you been bothered by any of the following problems? 1. Little interest or pleasure in doing things: not at all 2. Feeling down, depressed, or hopeless: not at all 3. Trouble falling or staying asleep, or sleeping too much: several days 4. Feeling tired or having little energy: several days 5. Poor appetite or overeating: not at all 6. Feeling bad about yourself - or that you are a failure or have let yourself or your family down: not at all 7. Trouble concentrating on things, such as reading the newspaper or watching television: not at all 8. Moving or speaking so slowly that other people could have noticed. Or the opposite - being so fidgety or restless that you have been moving around a lot more than usual: not at all 9. Thoughts that you would be better off or of hurting yourself in some way: not at all Total score: 2 Depression Screening Interpretation: Positive Depression Screening Follow-up: Existing condition and In treatment Depression Screening Done: Yes 47145 - PHQ-9 Billing: Yes Source: Developed by Drs. Dawson Stout, Christen Guzman, James Pena and colleagues, with an educational fariba from [employer]. Thrive Questionnaire Date Thrive assessed: 09/29/24 I am a: Patient What is your living situation today?: I have a steady place to live Within the past 12 months, did the food you bought not last and you didn't have the money to get more?: Never true Within the past 12 months, did you worry whether your food would run out before you got money to buy more?: Never true Do you have trouble paying for medicines?: No Do you have trouble getting transportation to medical appointments?: No Do you have trouble paying your heating and electricity bill?: No Do you have trouble taking care of your child, family member or friend?: No Do you have trouble with day-to-day activities such as bathing, preparing meals, shopping, managing finances, etc.?: No Are you currently unemployed and looking for a job?: No Are you interested in more education?: No Please select the resources that you would like help with: None THRIVE Score: 0 SERGEY-7 AMB Questionnaire SERGEY-7 Date SERGEY - 7 assessed: 08/11/24 Source: Developed by Drs. Dawson Stout, Christen Guzman, James Pena and colleagues, with an educational fariba from [employer]. Review of Systems Const Details: - Genitourinary: Reports frequent urination, especially at night. Denies dysuria. - Neurological: Reports sleep disturbances. Denies pain when urinating. Physical exam (Primary Care) Vital Signs: Last Vital Signs Temp 97.3 F 09/29/24 15:11 Pulse 78 09/29/24 15:11 BP 120/60 09/29/24 15:11 Pulse Ox 96 09/29/24 15:11 Oxygen Delivery Method Room Air 09/29/24 15:11 BMI result Body Mass Index 31.3 Tobacco/Smoking Status: Tobacco use Status Tobacco use date assessed 09/29/24 09/29/24 15:14 Patient Tobacco Use Status Former Tobacco user 09/29/24 15:14 Tobacco use type Pipe 09/29/24 15:14 e-Cigarette/Vaping Use Never Used 09/29/24 15:14 PHQ-9: PHQ-9 Score PHQ-9: Total score 2 09/29/24 15:27 Depression Screening Interpretation: Positive Depression Screening Follow-up: Existing condition and In treatment Thrive Assessment: Date of Thrive Assessment Date Thrive assessed 09/29/24 09/29/24 15:14 Const Other: Appearance: Alert. Oriented X3. No acute distress. Head: Normal external exam. Normocephalic. Atraumatic. Eyes: Pupils are equal, round, and reactive to light. Extraocular movements intact. Conjunctiva and sclera normal. Eyelids normal. Throat: Pharynx normal. Uvula midline. Moist mucous membranes. Neck: Normal inspection. Neck supple. Full range of motion. Cardiovascular: Normal heart rate and rhythm. Heart sound normal. Respiratory: No respiratory distress. Painless inspiration. Abdomen: Soft and nontender. Bowel sounds normal in all 4 quadrants. No distention noted. No organomegaly noted. No visible injury noted. Back: No costovertebral angle tenderness. Full range of motion noted. Skin: Skin warm and dry. Normal skin color. Normal skin turgor. No rashes/lesions/lacerations noted. Extremities: No lower extremity edema. Extremities exhibit normal range of motion. Neuro: Oriented X 3. No motor deficit. No sensory deficit. Reflexes normal. Results AMB Urinalysis Dipstick UR Leukocytes Negative Last Edit by YENNI Rees on 09/29/24 15:24 UR Nitrite Negative Last Edit by YENNI Rees on 09/29/24 15:24 UR Urobilinogen Normal Last Edit by YENNI Rees on 09/29/24 15:24 UR Protein Negative Last Edit by YENNI Rees on 09/29/24 15:24 UR Ph 6.0 Last Edit by YENNI Rees on 09/29/24 15:24 UR Blood Negative Last Edit by YENNI Rees on 09/29/24 15:24 UR Specific [place] 1.020 Last Edit by YENNI Rees on 09/29/24 15: 24 UR Ketone Negative Last Edit by YENNI Rees on 09/29/24 15:24 UR Bilirubin Negative Last Edit by YENNI Rees on 09/29/24 15:24 UR Glucose Negative Last Edit by YENNI Rees on 09/29/24 15:24 AMB Hemoglobin A1c AMB Hemoglobin A1c 5.4 % Last Edit by YENNI Rees on 09/29/24 15:51 Results Reviewed Results Reviewed: Laboratory Last Values Urine pH (Clinic) 6.0 09/29/24 15:10 Specific [place] (Clinic) 1.020 09/29/24 15:10 Ur Protein (Clinic) Negative 09/29/24 15:10 Ur Ketones (Clinic) Negative 09/29/24 15:10 Urine Blood (Clinic) Negative 09/29/24 15:10 Urine Nitrite Negative 09/29/24 15:10 Urine Bilirubin (Clinic) Negative 09/29/24 15:10 Urobilinogen (Clinic) Normal 09/29/24 15:10 Leukocyte Esterase (Clinic) Negative 09/29/24 15:10 Urine Glucose (Clinic) Negative 09/29/24 15:10 - Labs: Urinalysis shows normal pH, no protein, nitrites, blood, or bilirubin. Negative for white blood cells. Coding Level of Care Code Est Pt Level 4 (83277) Complex EM visit Add On G2211 Diagnoses Urinary frequency R35.0 Insomnia G47.00 Additional Codes PHQ-9 - 73125 - PHQ-9 Billing: Yes ([id number]) Assessment & Plan Assessment & Plan (1) Urinary frequency: Code(s): R35.0 - Frequency of micturition Category: Medical Plan: The patient will be referred to urology for further evaluation of urinary frequency, which may be related to his history of stroke. An A1c was conducted and was negative for diabetes. Will refer condition is chronic and stable continue to monitor. (2) Insomnia: Code(s): G47.00 - Insomnia, unspecified Category: Medical Plan: The patient is considering starting trazodone to address sleep disturbances, with instructions to adjust the dosage as needed. Condition is chronic and stable continue to monitor. Plan Plan Patient was informed and verbally consented to the use of an ambient scribe for clinic note documentation during this visit. 1. Urinary Frequency The patient will be referred to urology for further evaluation of urinary freque ncy, which may be related to his history of stroke. An A1c test will be conducted to rule out diabetes as a contributing factor. 2. Sleep Disturbances The patient is considering starting trazodone to address sleep disturbances, with instructions to adjust the dosage as needed. I discussed with the patient the absence of a current urinary tract infection and the normal urinalysis results. We talked about the potential link between his urinary symptoms and his previous stroke, and the plan to refer him to urology for further evaluation. I also explained the use of trazodone for his sleep disturbances and how to adjust the dosage if necessary. Orders: Orders AMB Urinalysis Dipstick Today Z13.9 - Encounter for screening, unspecified AMB Hemoglobin A1c Today Z13.9 - Encounter for screening, unspecified Referrals Urology Referral R35.0 - Frequency of micturition Medications: New trazodone 50 mg PO BEDTIME PRN 90 tabs 1RF sleep Patient Instructions: - Follow up with urology as referred for urinary frequency evaluation. - Take trazodone as prescribed for sleep disturbances, adjusting the dosage as needed. - Return for follow-up if symptoms persist or worsen.
[2024-09-29 15:11] VITALS: BP 120/60; PULSE 78; TEMP 36.3; O2SAT 96; BMI 31.3
--- OUTSIDE RECORDS SUMMARY | 2024-09-29 17:33 | XMS_ITS | Clinical Summary ---
Author Organization [facility] Address [address] [place] [address] Phone Care Team Providers Care Acetylene Cylinder Packing Mixer Name Role Phone Sami Najera MD Primary Care Provider [phone] Allergies Active Allergy Reactions Criticality Noted Date Comments Acetaminophen Rash 05/23/2024 Atorvastatin Muscular Issues 05/23/2024 Glipizide Anxiety 05/23/2024 Rosuvastatin Anxiety 05/23/2024 Medications amLODIPine (NORVASC) 5 mg tabletIndication s:hypertension Take 1 tablet (5 mg total) by mouth 1 (one) time each day. 30 each 06/15/2024 Active ezetimibe (ZETIA) 10 mg tablet Take 1 tablet (10 mg total) by mouth 1 (one) time each day. 30 each 06/14/2024 Active Active Problems Problem Noted Date Diagnosed Date CVA (cerebral vascular accident) ([facility] V24, [place]/[facility] V28) 05/23/2024 Encounters Date Type Department Care Team Description 08/16/2024 1:15 PM EDT Treatment [facility] Outpatient Rehabilitation [facility] [address] [phone] Dawson Small, LUIS MANUEL Cerebrovascular accident (CVA), unspecified mechanism (CMS/HCC V24, CMS/[facility] V28) (Primary Dx) 08/16/2024 12:30 PM EDT Treatment [facility] Occupational Therapy [address] [phone] Dakota Acosta OT Cerebrovascular accident (CVA), unspecified mechanism (CMS/HCC V24, CMS/HCC V28) (Primary Dx); Left hemiparesis (CMS/HCC V24, CMS/HCC V28) 08/12/2024 12:30 PM EDT Treatment [address] [phone] Keiko Munoz, DIAZ/L Cerebrovascular accident (CVA), unspecified mechanism (CMS/HCC V24, CMS/HCC V28) (Primary Dx); Left hemiparesis (CMS/HCC V24, CMS/HCC V28) 08/12/2024 11:45 AM EDT Treatment [address] [phone] Randall Roe, RULING MACHINE SET UP OPERATOR Cerebrovascular accident (CVA), unspecified mechanism (CMS/HCC V24, CMS/HCC V28) (Primary Dx) 08/10/2024 12:30 PM EDT Treatment [address] [phone] Keiko Munoz, DIAZ/L 08/10/2024 10:45 AM EDT Treatment [address] [phone] Randall oRe, RULING MACHINE SET UP OPERATOR Cerebrovascular accident (CVA), unspecified mechanism (CMS/HCC V24, CMS/HCC V28) (Primary Dx) 08/05/2024 12:30 PM EDT Treatment [address] [phone] Keiko Munoz, DIAZ/L Cerebrovascular accident (CVA), unspecified mechanism (CMS/HCC V24, CMS/HCC V28) (Primary Dx); Left hemiparesis (CMS/HCC V24, CMS/HCC V28) 08/05/2024 11:45 AM EDT Treatment [address] [phone] Randall Roe, RULING MACHINE SET UP OPERATOR Cerebrovascular accident (CVA), unspecified mechanism (CMS/HCC V24, CMS/HCC V28) (Primary Dx) 08/01/2024 11:15 AM EDT Treatment [address] [phone] Gisele Soriano P, OTR/L Left hemiparesis (CMS/HCC V24, CMS/HCC V28) (Primary Dx); Cerebrovascular accident (CVA), unspecified mechanism (CMS/HCC V24, CMS/HCC V28) 08/01/2024 10:30 AM EDT Treatment [address] [phone] Randall Roe, RULING MACHINE SET UP OPERATOR Cerebrovascular accident (CVA), unspecified mechanism (CMS/HCC V24, CMS/HCC V28) (Primary Dx) 07/29/2024 12:45 PM EDT Treatment [address] [phone] Keiko Munoz, DIAZ/L Cerebrovascular accident (CVA), unspecified mechanism (CMS/HCC V24, CMS/HCC V28) (Primary Dx) 07/29/2024 11:45 AM EDT Treatment [address] [phone] Randall Roe, RULING MACHINE SET UP OPERATOR Cerebrovascular accident (CVA), unspecified mechanism (CMS/HCC V24, CMS/HCC V28) (Primary Dx) 07/27/2024 1:30 PM EDT Treatment [address] [phone] Keiko Munoz, DIAZ/L Cerebrovascular accident (CVA), unspecified mechanism (CMS/HCC V24, CMS/HCC V28) (Primary Dx) 07/21/2024 12:30 PM EDT Treatment [address] [phone] Dawson Small, PT Cerebrovascular accident (CVA), unspecified mechanism (CMS/HCC V24, CMS/HCC V28) (Primary Dx) 07/21/2024 11:15 AM EDT Treatment [facility] Occupational [address] [phone] Alma Delia Lopes, DIAZ 07/18/2024 10:15 AM EDT Treatment [facility] Occupational [address] [phone] Alma Delia Lopes, DIAZ 07/15/2024 12:30 PM EDT Treatment [facility] Occupational [address] [phone] Keiko Munoz, DIAZ/L Cerebrovascular accident (CVA), unspecified mechanism (CMS/HCC V24, CMS/HCC V28) (Primary Dx) 07/15/2024 11:45 AM EDT Treatment [address] [phone] Randall Roe, RULING MACHINE SET UP OPERATOR Cerebrovascular accident (CVA), unspecified mechanism (CMS/HCC V24, CMS/HCC V28) (Primary Dx) 07/12/2024 10:45 AM EDT Treatment [address] [phone] Dawson Small, PT Cerebrovascular accident (CVA), unspecified mechanism (CMS/HCC V24, CMS/HCC V28) (Primary Dx) 07/06/2024 10:45 AM EDT Evaluation [facility] Speech [address] [phone] Rose Montez, DEBURR OPERATOR Cognitive communication disorder (Primary Dx); Cerebrovascular accident (CVA), unspecified mechanism (CMS/HCC V24, CMS/HCC V28) 07/06/2024 Plan of Care Documentation [facility] Speech [address] [phone] 07/04/2024 2:00 PM EDT Treatment [address] [phone] Randall Roe, RULING MACHINE SET UP OPERATOR Cerebrovascular accident (CVA), unspecified mechanism (CMS/HCC V24, CMS/[facility] V28) (Primary Dx) 06/29/2024 12:30 PM EDT Treatment [facility] Occupational Therapy [address] [place] [phone] Dakota Acosta OT Cerebrovascular accident (CVA), unspecified mechanism ([facility] V24, [facility] V28) (Primary Dx) from Last 3 Months Medical History Medical [...] 10:01 PM EST Sexual Orientation Lesbian or [place] 05/23/2024 10 :01 PM EST Obstetrics History [...] 05/20/2024 11:45 AM EST Plan of Treatment Health Maintenance Due Date Last Done Comments Zoster Vaccines (1 of 2) 2001 Pneumococcal Vaccine: 50+ Years (2 of 2 - PCV) 05/24/2020 05/24/2019 COVID-19 Vaccine ( - season) 2023 07/12/2021, 08/29/2020, 08/01/2020 Abdominal Aortic Aneurysm (AAA) Screen 05/19/2024 Cholesterol Screening (Lipid Panel) 05/19/2024 Colorectal Cancer Screening: Colonoscopy 05/19/2024 Hepatitis C Screening 05/19/2024 Medicare Annual Wellness Visit 05/19/2024 Influenza Vaccine (Season Ended) 2024 04/17/2021, 02/24/2020, 05/24/2019, Additional history exists Hypertension/CHF/CAD Annual BMP Blood [...] was walking 2-3 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) Improved strength in L hand Be able to reach up to wash hair PT LTGs General No Dawson Small, PT Note: Pt will complete TUG with LAD in under 30 seconds mod independent - Met Pt will complete 6 minute walk test with LAD and distance of 700 ft - met Pt will increase left hip abduction strength to 4/5 for improved hip stability in stance phase of gait to improve ambulation - met Pt will be independent with HEP - met Procedures Procedure Name Priority Date/Time Associated Diagnosis Comments COMPREHENSIVE METABOLIC PANEL Routine 06/07/2024 5:45 AM EST from Last 3 Months or Most Recently Relevant to Health Maintenance Results * (ABNORMAL) Comprehensive metabolic panel (06/07/2024 5:45 AM EST) Sodium 134 133 - 145 mmol/L LAB CHEMISTRY METHOD 06/07/2024 7:[address] [facility] Potassium 4.4 3.5 - 5.5 mmol/L LAB CHEMISTRY METHOD 06/07/2024 7:[address] [facility] Chloride 104 96 - 110 mmol/L LAB CHEMISTRY METHOD 06/07/2024 7:[address] [facility] CO2 28 21 - 32 mmol/L LAB CHEMISTRY METHOD 06/07/2024 7:[address] [facility] Anion Gap 2(L) 3 - 11 LAB CHEMISTRY METHOD 06/07/2024 7:10 AM [facility] Glucose 89 70 - 100 mg/dL LAB CHEMISTRY METHOD 06/07/2024 7:10 AM [facility] BUN 20 5 - 25 mg/dL LAB CHEMISTRY METHOD 06/07/2024 7:10 AM [facility] Creatinine 0.78 0.70 - 1.30 mg/dL LAB CHEMISTRY METHOD 06/07/2024 7:10 AM [facility] eGFR 94 >=60 mL/min/1. 73m2 LAB CHEMISTRY METHOD 06/07/2024 7:10 AM [facility] Comment:Calculation based on the??Chronic Kidney Disease Epidemiology Collaboration (CKD-EPI) equation refit??without adjustment for race. BUN/Creatinine Ratio 25.6 LAB CHEMISTRY METHOD 06/07/2024 7:10 AM [facility] Calcium 9.4 8.5 - 10.5 mg/dL LAB CHEMISTRY METHOD 06/07/2024 7:10 AM [facility] AST (SGOT) 33 10 - 42 unit/L LAB CHEMISTRY METHOD 06/07/2024 7:10 AM [facility] ALT (SGPT) 51 10 - 60 unit/L LAB CHEMISTRY METHOD 06/07/2024 7:10 AM [facility] Alkaline Phosphatase 114 42 - 121 unit/L LAB CHEMISTRY METHOD 06/07/2024 7:10 AM [facility] Total Protein 6.8 6.0 - 8.0 g/dL LAB CHEMISTRY METHOD 06/07/2024 7:10 AM [facility] Albumin 2.9(L) 3.2 - 5.0 g/dL LAB CHEMISTRY METHOD 06/07/2024 7:10 AM [facility] Total Bilirubin 0.5 0.0 - 1.4 mg/dL LAB CHEMISTRY METHOD 06/07/2024 7:10 AM [facility] Blood Venous blood specimen / Unknown Venipuncture / Unknown 06/07/2024 5:45 AM EST 06/07/2024 6:23 AM EST Malena Soto ACCESS NURSE LAB BLOOD ORDERABLES Final Result [facility] [address] [place] [address], from Last 3 Months or Most Recently Relevant to Health Maintenance Insurance [employer] MED[employer]ARE [employer]VANTAGE Advance Directives Documents on File Type Date Recorded 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 Care Teams Acetylene Cylinder Packing Mixer Relationship Specialty Start Date End Date Sami Najera MD [address] [place] [id number] PCP - General Internal Medicine 05/19/24
== END 2024-09-29 15:57 | disposition home or self-care (01) ==
PROVIDERS: PCP Internal Medicine; Visit Provider Physician Assistant Medical
DX: R35.0 Frequency of micturition (principal); G47.00 Insomnia, unspecified; Z13.9 Encounter for screening, unspecified

== ENCOUNTER → 2024-09-29 14:54 | Outpatient (BNVA) | payer MEDICARE, SELFPAY | PROVIDERS: PCP Internal Medicine; Visit Provider Physician Assistant Medical | DX: R35.0 Frequency of micturition (principal); G47.00 Insomnia, unspecified; Z86.73 Personal history of transient ischemic attack (TIA), and cerebral infarction without residual deficits | CPT/HCPCS: 81002; 83036; 96127; 99212 ==

== ENCOUNTER 2024-12-06 11:16 | Outpatient (REF) | payer MEDICARE, SELFPAY ==
[2024-12-06 11:35] LABS: MANUAL DIFF FLAG NO
[2024-12-06 12:24] LABS: Hematocrit 40.4 % (42.0-52.0); Hemoglobin 14.2 g/dl (14.0-18.0); Imm Gran Abs Auto 0.02 X10*3/uL (0.00-0.03); Imm Gran Pct Auto 0.4 % (0.0-0.4); Lymphocytes Absolute Auto 2.1 X10*3/uL (1.2-4.9); Mean Corpuscular HGB Conc 35.1 g/dl (31.0-36.0); Mean Corpuscular Hemoglobin 30.5 pg (27.0-33.0); Mean Corpuscular Volume 86.9 fL (80.0-98.0); NRBC Abs Auto 0.000 X10*3/uL (0.0-0.012); NRBC Pct Auto 0.0 /100WBC (0.0-0.2); Platelet Count 313 X10*3/uL (160-400); Red Blood Count 4.65 X10*6/uL (4.60-5.80); White Blood Count 5.5 X10*3/uL (4.8-10.8)
[2024-12-06 12:38] LABS: Appearance Urine Clear; Glucose Urine UA Negative (Negative); PH 6.5 (5.0-9.0); Specific Gravity - Urine 1.015 (1.005-1.025); UMIC TRIGGER UACC YES
--- OUTSIDE RECORDS SUMMARY | 2024-12-06 12:48 | XMS_ITS | Clinical Summary ---
Author Organization [facility] Address [address] [place] [address] Phone Care Team Providers Care Journeyman Millwright Name Role Phone Sami Najera MD Primary Care Provider [phone] Allergies Active Allergy Reactions Criticality Noted Date [...] Date Diagnosed Date CVA (cerebral vascular accident) ([facility] V24, C [place]/[facility] V28) 05/23/2024 Medical History Medical History Date Comments HLD [...] 64 06/15/2024 8:01 AM EST Temperature 36.5 C (97.7 F) 06/15/2024 8:01 AM EST Respiratory Rate 18 06/15/2024 8:01 AM EST [...] - PCV) 05/24/2020 05/24/2019 COVID-19 Vaccine ( season) 2023 07/12/2021, 08/29/2020, 08/01/2020 Abdominal Aortic Aneurysm (AAA) Screen 05/19/2024 Cholesterol Screening (Lipid Panel) 05/19/2024 Colorectal Cancer Screening: Colonoscopy 05/19/2024 Hepatitis C Screening 05/19/2024 Medicare Annual Wellness Visit 05/19/2024 Influenza Vaccine (#1) 2024 , 02/24/2020, 05/24/2019, Additional history exists Hypertension/CHF/CAD Annual BMP Blood Test 06/07/2025 06/07/2024, 06/01/2024, 05/29/2024, Additional history exists Social Influencers of Health Screening 06/14/2025 06/14/2024 Falls Risk Assessment 06/15/2025 06/15/2024 RSV Immunization Adult Patients (1 - 1-dose 75+ series) 2026 DTaP,Tdap,and Td Vaccines (3 - Td or Tdap) 12/29/2028 12/29/2018, 07/12/2018 Depression Screening Completed 06/14/2024 HIB Vaccines Aged Out No longer eligi [...] was walking 2-3 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 Care Teams Journeyman Millwright Relationship Specialty Start Date End Date Sami Najera MD [address] [place] [address] [place] [id number] PCP - General Internal Medicine 05/19/24
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
[2024-12-06 12:52] LABS: UACC Culture Trigger YES
[2024-12-06 13:15] LABS: Alanine Aminotransferase 23 U/L (0-40); Albumin Level 3.9 g/dL (3.5-5.0); Alkaline Phosphatase 101 U/L (39-117); Anion Gap 11 (12-20); Aspartate Amino Transferase 37 U/L (5-37); Blood Urea Nitrogen 17 mg/dL (9-16); Calcium 9.2 mg/dL (8.4-10.2); Carbon Dioxide 24 mmol/L (22-29); Chloride 110 mmol/L (96-108); Cholesterol 174 mg/dL (<200); Estimated Glomerular Filt Rate > 60; HDL Cholesterol 31 mg/dL (>40); Potassium 4.0 mmol/L (3.3-5.1); Sodium 141 mmol/L (135-145); Total Protein 7.2 g/dL (6.5-8.0); Triglycerides 119 mg/dL (<150)
== END 2024-12-06 11:17 | disposition home or self-care (01) ==
LOC: HO.LAB 11:16
PROVIDERS: PCP Internal Medicine; Visit Provider Internal Medicine
DX: E78.00 Pure hypercholesterolemia, unspecified (principal); I63.9 Cerebral infarction, unspecified; D64.9 Anemia, unspecified; R30.0 Dysuria
CPT/HCPCS: 36415; 80053; 80061; 81001; 84443; 85025; 87086

== ENCOUNTER 2024-12-12 13:48 | Outpatient (AMB) | payer MEDICARE, SELFPAY ==
--- NOTE | 2024-12-12 13:57 | A.OFFVIS_ITS ---
Intake Visit Reasons: urinary frequency Intake Note: Patient is present for URINARY FREQUENCEY Urology Medication:NONE Antibiotic Allergy:ATORVASTATIN,ROSUVASTATIN Blood Thinner:ASPIRIN Coater Required: No Allergies acetaminophen (Tylenol) Allergy (Unknown, Verified 12/12/24 19:44) rash aspirin Allergy (Unknown, Verified 12/12/24 19:44) bruising atorvastatin Allergy (Unknown, Verified 12/12/24 19:44) muscle aches, forgetfulness glipizide Allergy (Unknown, Verified 12/12/24 19:44) anxiety melatonin Adverse Reaction (Intermediate, Verified 12/12/24 19:44) Nightmare rosuvastatin Adverse Reaction (Intermediate, Verified 12/12/24 19:44) Anxiety Medication List - Last Reconciled 12/12/24 by CHRISTIE Colon amlodipine 5 mg See Protocol PO DAILY 90 days aspirin 81 mg PO DAILY ezetimibe 10 mg PO DAILY 90 days HPI Comments Details: Bob is a very pleasant 74-year-old male patient of Dr. Bains. He has a past medical history of urinary frequency, obesity, hypertension, CVA, osteoporosis, migraines, hyperlipidemia, and anxiety. He presents to the office today as a new patient for ongoing lower urinary tract symptoms he has been experiencing. In discussion with the patient today he reports earlier this urine May he had been diagnosed with a CVA and had been experiencing episodes of urinary urgency and frequency. He reports initially he had left- sided weakness however has gained more function and since feels he has been f eeling and doing better. He reports episodes of urinary frequency and urgency he had been experiencing have improved however he does still feel at times these symptoms are bothersome. In office urinalysis results reviewed with the patient today. When asked he denies hematuria, dysuria, foul smelling urine, changes to urinary stream, flank pain, fever, and or chills. We did discussed potential causes of lower urinary tract symptoms patient is experiencing as well as further treatment options and risks and benefits of these treatment options. All questions were answered. He does discusses his busy lifestyle working for the [employer] with [employer] issues. 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 He otherwise offers no other issues or concerns. PSA: 12/08 1.1 In review of patient's chart it appears urine culture: 12/12 Streptococcus viridans group/coag-negative Staphylococcus [facility] Medical History Urinary frequency Obesity (BMI 30-39.9) Essential hypertension Ischemic cerebrovascular accident (CVA) Osteoporosis Migraine Anxiety Obesity Screening for colon cancer Screening for prostate cancer Screening for diabetes mellitus Hyperlipidemia Surgical History History of amputation of finger of right hand History of colonoscopy History of tooth extraction History of cholecystectomy History of surgery on arm History of repair of rotator cuff Family History Father CVD (cardiovascular disease) Mother Stroke Diabetes Brother Coronary artery sclerosis Social History Household Members: Spouse Housing: Other Housing Other:: [facility] Do you presently have visiting nurse or other home services: No Alcohol intake: never Patient Tobacco Use Status: Former Tobacco user Tobacco use type: Pipe e-Cigarette/Vaping Use: Never Used Second Hand Smoke Exposure: Yes service: Yes Current occupational 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 Cognitive needs: Yes ( cane) Hearing needs: Yes Vision needs: Yes (glasses) Review of Systems Const All systems reviewed & are unremarkable except as noted in HPI and below Physical Exam Const General: cooperative, comfortable, no acute distress, well developed, alert and awake Orientation/consciousness: patient oriented x3 Limitations: no limitations HEENT Head: Yes normal to inspection, Yes normocephalic and Yes atraumatic Ears: hearing grossly normal bilaterally Eyes General: appearance normal, both eyes and all related structures Neck Neck: Yes normal visual inspection and Yes trachea midline Chest Chest palpation & inspection: normal inspection of the chest Resp Effort & Inspection: normal respiratory effort and able to speak in complete sentences Cardio Rate: regular rate GI Inspection: Yes normal to inspection General: Yes no CVA tenderness Back/Spine/Pelvis Back: no CVA tenderness Skin General skin exam: no rashes or lesions noted Neuro General: patient oriented x3 Extrem General: Yes normal to inspection Psych Appearance: grossly normal and well kempt Mental Status: mental status grossly normal Speech and movement: Normal speech and movement present and Clear speech present Affect: normal affect Attitude: cooperative Thought process: Normal thought process present Thought content: Normal thought content present Insight: Fair insight present (Psych) Judgement: Fair judgement present (Psych) Results AMB Urinalysis, Automated UA Leukoctes 0 Jonas/uL Last Edit by JIM López on 12/12/24 14:11 UA Nitrite Negative Last Edit by Collin Cazares [facility] on 12/12/24 14:11 UA Urobilinogen 0.2 mg/dL Last Edit by Collin Cazares [facility] on 12/12/24 14:1 1 UA Protein 0 mg/dL Last Edit by Collin Cazares [facility] on 12/12/24 14:11 UA pH 6.0 Last Edit by Collin Cazares [facility] on 12/12/24 14:11 UA Blood 0 Demond/uL Last Edit by Collin Cazares [facility] on 12/12/24 14:11 UA Specific [place] 1.020 Last Edit by Collin Cazares [facility] on 12/12/24 14: 11 UA Ketone Negative Last Edit by Collin Cazares [facility] on 12/12/24 14:11 UA Bilirubin 0 mg/dL Last Edit by Collin Cazares [facility] on 12/12/24 14:11 UA Glucose 0 mg/dL Last Edit by Collin Cazares [facility] on 12/12/24 14:11 Results Reviewed Results Reviewed: Laboratory Last Values Urine pH (Auto) 6.0 12/12/24 14:10 Specific [place] (Auto) 1.020 12/12/24 14:10 Urine Protein (Auto) 0 mg/dL 12/12/24 14:10 Glucose (UA)(Auto) 0 mg/dL 12/12/24 14:10 Urine Ketones (Auto) Negative 12/12/24 14:10 Urine Blood (Auto) 0 Demond/uL 12/12/24 14:10 Urine Nitrite (Auto) Negative 12/12/24 14:10 Urine Bilirubin (Auto) 0 mg/dL 12/12/24 14:10 Urine Urobilinogen (Auto) 0.2 mg/dL 12/12/24 14:10 Leukocyte Esterase (Auto) 0 Jonas/uL 12/12/24 14:10 Assessment & Plan Assessment & Plan (1) Urinary urgency: Code(s): R39.15 - Urgency of urination Category: Medical (2) Urinary frequency: Code(s): R35.0 - Frequency of micturition Category: Medical Plan In office urinalysis results reviewed with the patient today; as noted above. We discussed potential causes of lower urinary tract symptoms patient is experiencing as well as further treatment options and risks and benefits of these treatment options. Will obtain retroperitoneal ultrasound for further assessment evaluation. Will obtain PSA for further assessment evaluation. We discussed bladder triggers and irritants. Follow-up in 1-3 months with imaging and labs; or sooner with any issues, concerns, and or questions. Orders: Orders AMB Urinalysis Automated Today Z13.9 - Encounter for screening, unspecified US retroperitoneal comp Today R35.0 - Frequency of micturition, R39.15 - Urgency of urination Prostate Specific Antigen Today R35.0 - Frequency of micturition, R39.15 - Urgency of urination Patient Instructions: The patient had an opportunity to ask questions regarding the treatment plan. All questions were answered. Physical exam, labs, and imaging were discussed and reviewed in detail. As well as risks, benefits, and discussion of treatment choices. No major barriers to understanding were identified. The patient expressed understanding and agreement with the above treatment plan. The patient was made aware they should contact our office by phone for worsening of their current condition, the appearance of new symptoms, or with any questions or concerns. Compliance is encouraged with any medications and follow up testing that is ordered. It is a privilege to be allowed the opportunity to participate in? your urological care.? Again, if you have any questions or concerns If you have any questions or concerns please do not hesitate to contact me. The office is [phone]. This note is constructed using voice recognition software. While every effort has been made to ensure accuracy towel sewer errors may have been included. Yours sincerely, CHRISTIE Colon Coding Level of Care Code New Pt Level 3 (77557) Diagnoses Urinary urgency R39.15 Urinary frequency R35.0
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
== END 2024-12-12 14:32 | disposition home or self-care (01) ==
LOC: HO.HUSH 13:48
PROVIDERS: PCP Internal Medicine; Visit Provider Nurse Practitioner Family
DX: R39.15 Urgency of urination (principal); R35.0 Frequency of micturition; Z13.9 Encounter for screening, unspecified
CPT/HCPCS: 99203

== ENCOUNTER → 2024-12-12 13:48 | Outpatient (BNVA) | payer MEDICARE, SELFPAY | PROVIDERS: PCP Internal Medicine; Visit Provider Nurse Practitioner Family | DX: R39.15 Urgency of urination (principal); R35.0 Frequency of micturition | CPT/HCPCS: 81003; 99202 ==

== ENCOUNTER 2024-12-22 10:56 | Outpatient (AMB) | payer MEDICARE, SELFPAY ==
[2024-12-22 11:14] VITALS: BP 130/64; PULSE 64; O2SAT 97; BMI 32.7
--- NOTE | 2024-12-22 11:14 | A.OFFPC_ITS ---
Vital Signs 12/22/24 11:14 Height 5 ft 6 in Weight 202 lb 8 oz BMI 32.7 BP 130/64 Blood Pressure Location Lt brachial Position Sitting Pulse 64 Pulse Source Pulse Oximeter Pulse Oximetry (%) 97 Oxygen Delivery Method Room Air Intake Visit Reasons: CVA, hyperlipidemia Application Integrator Required: No Accompanied by: Self / Same As Patient Allergies acetaminophen (Tylenol) Allergy (Unknown, Verified 12/22/24 11:38) rash aspirin Allergy (Unknown, Verified 12/22/24 11:38) bruising atorvastatin Allergy (Unknown, Verified 12/22/24 11:38) muscle aches, forgetfulness glipizide Allergy (Unknown, Verified 12/22/24 11:38) anxiety melatonin Adverse Reaction (Intermediate, Verified 12/22/24 11:38) Nightmare rosuvastatin Adverse Reaction (Intermediate, Verified 12/22/24 11:38) Anxiety Medication List - Last Reconciled 12/22/24 by Jaun Bains MD amlodipine 5 mg See Protocol PO DAILY 90 days aspirin 81 mg PO DAILY ezetimibe 10 mg PO DAILY 90 days Tobacco use date assessed: 12/22/24 Fall risk assessment: 2 + Falls in past year Last assessed Fall Risk: 12/22/24 Dental Screening Dental Screen Date: 12/22/24 Did you have a dental visit in the last 12 months?: No Did you have a dental problem in the last 6 months where you did not have access to dental care?: No Was dental information given to patient?: No HPI CVA, hyperlipidemia HPI Details Patient comes in today for his follow up visit States that he is doing well overall but has been having a hard time sleeping at night for a couple of months now His partner states that patient seems to be very anxious all the time and that his anxiety appears to have gotten a lot worse since he had his CVA a few months ago and thinks that his anxiety is a big contributor to his not being able to sleep at night Patient denies any headaches or dizziness Denies any chest pains, no increased SOB No nausea/vomiting, no abdominal pain No change in bowel habits noted He had his follow up labs done a couple of weeks ago - to discuss his results [facility] Medical History (Updated 12/23/24 @ 09:28 by Jaun Bains MD) Mixed hyperlipidemia Urinary frequency Obesity (BMI 30-39.9) Essential hypertension Ischemic cerebrovascular accident (CVA) Osteoporosis Migraine Anxiety Obesity Screening for colon cancer Screening for prostate cancer Screening for diabetes mellitus Hyperlipidemia Surgical History History of amputation of finger of right hand History of colonoscopy History of tooth extraction History of cholecystectomy History of surgery on arm History of repair of rotator cuff Family History Father CVD (cardiovascular disease) Mother Stroke Diabetes Brother Coronary artery sclerosis Social History Household Members: Spouse Housing: Other Housing Other:: [facility] Do you presently have visiting nurse or other home services: No Alcohol intake: never Patient Tobacco Use Status: Former Tobacco user Tobacco use type: Pipe e-Cigarette/Vaping Use: Never Used Second Hand Smoke Exposure: Yes service: Yes Current occupational 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 1. Little interest or pleasure in doing things: not at all 2. Feeling down, depressed, or hopeless: not at all 3. Trouble falling or staying asleep, or sleeping too much: several days 4. Feeling tired or having little energy: several days 5. Poor appetite or overeating: not at all 6. Feeling bad about yourself - or that you are a failure or have let yourself or your family down: not at all 7. Trouble concentrating on things, such as reading the newspaper or watching television: not at all 8. Moving or speaking so slowly that other people could have noticed. Or the opposite - being so fidgety or restless that you have been moving around a lot more than usual: not at all 9. Thoughts that you would be better off or of hurting yourself in some way: not at all Total score: 2 Depression Screening Interpretation: Positive Depression Screening Follow-up: Existing condition and In treatment Depression Screening Done: Yes 76731 - PHQ-9 Billing: Yes Source: Developed by Drs. Dawson Stout, James Schmitz and colleagues, with an educational fariba from [employer]. Thrive Questionnaire Date Thrive assessed: 12/22/24 I am a: Patient What is your living situation today?: I have a steady place to live Within the past 12 months, did the food you bought not last and you didn't have the money to get more?: Never true Within the past 12 months, did you worry whether your food would run out before you got money to buy more?: Never true Do you have trouble paying for medicines?: No Do you have trouble getting transportation to medical appointments?: No Do you have trouble paying your heating and electricity bill?: No Do you have trouble taking care of your child, family member or friend?: No Do you have trouble with day-to-day activities such as bathing, preparing meals, shopping, managing finances, etc.?: No Are you currently unemployed and looking for a job?: No Are you interested in more education?: No Please select the resources that you would like help with: None Currently or been in a relationship where the following occur: No concerns reported THRIVE Score: 0 AUDIT C Alcohol Use Questionnaire (AUDIT-C) 1. How often do you have a drink containing alcohol?: Never 3. How often do you have six or more drinks on one occasion?: Never Total Score: 0 Score Reviewed/Action Taken: Yes SERGEY-7 AMB Questionnaire SERGEY-7 Date SERGEY - 7 assessed: 12/22/24 Feeling nervous, anxious, or on edge: 3 = Nearly every day Not being able to stop or control worryin = More than half the days Worrying too much about different things: 3 = Nearly every day Trouble relaxin = Not at all Being so restless that it is hard to sit still: 0 = Not at all Becoming easily annoyed or irritable: 1 = Several days Feeling afraid as if something awful might happen: 1 = Several days Total SERGEY-7 score (0-4 normal; 5-9 mild; 10-14 moderate; 15-21 severe): 10 Source: Developed by Drs. Dawson Stout, James Schmitz and colleagues, with an educational fariba from [employer]. Review of Systems Const Denies chills, Reports difficulty sleeping, Reports fatigue, Denies fever(s) and Denies headache(s) ENT Denies dysphagia, Denies dizziness, Denies otalgia, Denies headache(s), Denies neck pain, Denies odynophagia and Denies sore throat Card Denies chest pain, Denies palpitations and Denies dyspnea Resp Denies chest congestion, Denies cough and Denies dyspnea GI Denies abdominal pain, Denies constipation, Denies dysphagia, Denies heartburn, Denies diarrhea, Denies nausea, Denies odynophagia and Denies vomiting Denies difficulty urinating, Denies dysuria, Denies nocturia and Denies urinary frequency Musc Reports abnormal gait (somewhat unsteady - walks with a cane), Denies back pain and Denies neck pain Skin/Breast Denies rash Neuro Reports abnormal gait (somewhat unsteady - walks with a cane), Denies dizziness and Denies headache(s) Psych Reports anxiety (increasing), Denies irritability and Denies panic attacks Endo Reports fatigue and Denies palpitations Physical exam (Primary Care) Vital Signs: Last Vital Signs Pulse 64 12/22/24 11:14 BP 130/64 12/22/24 11:14 Pulse Ox 97 12/22/24 11:14 Oxygen Delivery Method Room Air 12/22/24 11:14 BMI result Body Mass Index 32.7 Tobacco/Smoking Status: Tobacco use Status Tobacco use date assessed 12/22/24 12/22/24 11:20 Patient Tobacco Use Status Former Tobacco user 12/22/24 11:20 Tobacco use type Pipe 12/22/24 11:20 e-Cigarette/Vaping Use Never Used 12/22/24 11:20 PHQ-9: PHQ-9 Score PHQ-9: Total score 2 12/23/24 05:30 Depression Screening Interpretation: Positive Depression Screening Follow-up: Existing condition and In treatment Thrive Assessment: Date of Thrive Assessment Date Thrive assessed 12/22/24 12/22/24 11:20 Currently or been in a relationship where the following occur: No concerns reported Const General: no acute distress and alert HENMT Ears: TM's normal bilaterally and EAC's normal Throat: Yes posterior oropharynx normal and Yes tonsils normal (no TP congestion) Neck Neck: Yes supple and No lymphadenopathy Thyroid: Thyroid normal Resp Auscultation: clear to auscultation bilaterally, no rales and no wheezes Cardio Rate: regular rate Rhythm: regular rhythm Heart sounds: no murmurs GI Palpation (GI): Soft to palpation and nontender Auscultation: normal bowel sounds General: Yes no CVA tenderness Back/Spine/Pelvis Back: no CVA tenderness Thoracic/Lumbar Spine: No lumbar spinal tenderness Skin Rashes: no rashes Extrem General: Yes no clubbing, cyanosis or edema Results Reviewed Results Reviewed: Laboratory Tests 12/06/24 12/06/24 11:32 11:34 WBC 5.5 Hgb 14.2 Hct 40.4 L Plt Count 313 Sodium 141 Potassium 4.0 Creatinine 0.80 Estimated GFR > 60 Fasting Glucose 91 Calcium 9.2 AST 37 ALT 23 Triglycerides 119 Cholesterol 174 LDL Cholesterol, Calc 120 H HDL Cholesterol 31 L TSH 0.89 Ur Specific [place] 1.015 Urine Protein Negative Urine Glucose (UA) Negative Urine Blood Negative Urine Nitrite Negative Ur Leukocyte Esterase Small (1+) H Coding Level of Care Code Est Pt Level 4 (08998) Diagnoses Ischemic cerebrovascular accident (CVA) I63.9 Hemiparesis following cerebrovascular accident (CVA) I69.359 Mixed hyperlipidemia E78.2 Essential hypertension I10 Insomnia, unspecified type G47.00 Insomnia type: unspecified Anxiety F41.9 Ex-smoker Z87.891 Obesity (BMI 30-39.9) E66.9 Additional Codes PHQ-9 - 56412 - PHQ-9 Billing: Yes ([id number]) Assessment & Plan Assessment & Plan (1) Ischemic cerebrovascular accident (CVA): Code(s): I63.9 - Cerebral infarction, unspecified Category: Medical Plan: Patient suffered an acute pontine CVA.back in late April 2024 - he presented to the ER then with increased fatigue, slurring of speech and memory loss MRI of the brain done at the time revealed a moderate-size right basis pontine acute infarct with mild to moderate cortical atrophy CTA of the head and neck done in April 2024 revealed 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 left paraclinoid ICA stenosis He was seen by Neurology and was recommended to start taking Aspirin 81 mg QD and to start rehab/PT He was also recommended to start taking medications to help lower his cholesterol levels but he was unable to tolerate both Atorvastatin and Rosuvastatin; he is currently taking Ezetimibe 10 mg QD and seems to be tolerating the Rx so far Factor V Leiden was also checked back in April 2024 and test came back negative (2) Hemiparesis following cerebrovascular accident (CVA): Code(s): I69.359 - Hemiplegia and hemiparesis following cerebral infarction affecting unspecified side Category: Medical Plan: Patient completed rehab and states that his right-sided weakness have mostly improved with physical therapy - he is currently able to ambulate and move around reasonably with just the use of a walking cane (3) Mixed hyperlipidemia: Code(s): E78.2 - Mixed hyperlipidemia Category: Medical Plan: Results of his labs done a couple of weeks ago reviewed and discussed with patient - have advised him that his cholesterol numbers have improved slightly from earlier this year but they are not yet at goal, considering his recent CVA Reinforced low cholesterol diet Continue Ezemtimibe 10 mg QD for now but may need to try starting him on another Rx, possibly the newer PCSK9 inhibitor if insurance will cover them, if Ezetimibe alone is not able to get him to goal, which is LDL cholesterol of at least 100 mg/dl or less Will have patient recheck his labs and fasting lipids in 4 months for follow up (4) Essential hypertension: Code(s): I10 - Essential (primary) hypertension Category: Medical Plan: Reinforced low-sodium diet - goal is systolic BP of 120 mm or less Continue Amlodipine 5 mg QD (5) Insomnia: Code(s): G47.00 - Insomnia, unspecified Category: Medical Qualifiers: Insomnia type: unspecified Qualified Code(s): G47.00 - Insomnia, unspecified Plan: Sleep hygiene discussed Agree with their suspicion that patient's insomnia is likely due to, in large part, to his anxiety Will try starting him on Doxepin 10 mg 1 to 2 capsules daily at bedtime as needed (6) Anxiety: Code(s): F41.9 - Anxiety disorder, unspecified Category: Medical Plan: Have advised patient that the Doxepin that we will be starting him on should help with his anxiety but even if this helps, he may still benefit from some maintenance Tx for his underlying anxiety if it continues to be an issue for him going forward (7) Ex-smoker: Code(s): Z87.891 - Personal history of nicotine dependence Plan: Have emphasized again to patient that he should never go back to smoking (8) Obesity (BMI 30-39.9): Code(s): E66.9 - Obesity, unspecified Category: Medical Plan: Reinforced diet; exercise and weight loss are not practical in this patient at this time given his current condition Plan Follow up in 4 months Orders: Orders Complete Blood Count Auto Diff 4 Months D64.9 - Anemia, unspecified Comprehensive [place]. Panel Fast 4 Months E78.00 - Pure hypercholesterolemia, unspecified UA CC w/rflx Micro + Cult 4 Months R30.0 - Dysuria Lipid Panel 4 Months E78.00 - Pure hypercholesterolemia, unspecified Medications: New doxepin 1 to 2 capsules orally bedtime PRN; 30 caps 1RF anxiety and sleep
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
--- OUTSIDE RECORDS SUMMARY | 2024-12-22 12:32 | XMS_ITS | Clinical Summary ---
Author Organization [facility] Address [address] [place] [address] Phone Care Team Providers Care City Collector Name Role Phone Sami Najera MD Primary Care Provider [phone] Allergies Active Allergy Reactions Criticality Noted Date [...] Date Diagnosed Date CVA (cerebral vascular accident) ([facility] V24, [place] V28) 05/23/2024 Medical History Medical History Date [...] (2 of 2 - PCV) 05/24/2020 05/24/2019 Abdominal Aortic Aneurysm (AAA) Screen 05/19/2024 Cholesterol Screening (Lipid Panel) 05/19/2024 Colorectal Cancer Screening: Colonoscopy 05/19/2024 Hepatitis C Screening 05/19/2024 Medicare Annual Wellness Visit 05/19/2024 COVID-19 Vaccine ( season) 2024 07/12/2021, 08/29/2020, 08/01/2020 Influenza Vaccine (#1) 2024 , 02/24/2020, 05/24/2019, [...] was walking 2-3 miles in the [place] LEGAL AIDE) Improved strength in L hand Be able [...] mmol/L LAB CHEMISTRY METHOD 06/07/2024 7:10 AM [facility] Potassium 4.4 3.5 - 5.5 mmol/L LAB CHEMISTRY METHOD 06/07/2024 7:10 AM [facility] Chloride 104 96 - 110 mmol/L LAB CHEMISTRY METHOD 06/07/2024 7:10 AM [facility] CO2 28 21 - 32 mmol/L LAB CHEMISTRY METHOD 06/07/2024 7:10 AM [facility] Anion Gap 2(L) 3 - 11 LAB CHEMISTRY METHOD 06/07/2024 7:10 AM [facility] Glucose 89 70 - 100 mg/dL LAB CHEMISTRY METHOD 06/07/2024 7:10 AM [facility] BUN 20 5 - 25 mg/dL LAB CHEMISTRY METHOD 06/07/2024 7:10 AM [facility] Creatinine 0.78 0.70 - 1.30 mg/dL LAB CHEMISTRY METHOD 06/07/2024 7:10 AM [facility] eGFR 94 >=60 mL/min/1. 73m2 LAB CHEMISTRY METHOD 06/07/2024 7:10 AM [facility] Comment:Calculation based on the Chronic Kidney Disease Epidemiology Collaboration (CKD-EPI) equation refit without adjustment for race. BUN/Creatinine Ratio 25.6 LAB CHEMISTRY METHOD 06/07/2024 7:10 AM [facility] Calcium 9.4 8.5 - 10.5 mg/dL LAB CHEMISTRY METHOD 06/07/2024 7:10 AM [facility] AST (SGOT) 33 10 - 42 unit/L LAB CHEMISTRY METHOD 06/07/2024 7:10 AM [facility] ALT (SGPT) 51 10 - 60 unit/L LAB CHEMISTRY METHOD 06/07/2024 7:10 AM [facility] Alkaline Phosphatase 114 42 - 121 unit/L LAB CHEMISTRY METHOD 06/07/2024 7:10 AM [facility] Total Protein 6.8 6.0 - 8.0 g/dL LAB CHEMISTRY METHOD 06/07/2024 7:10 AM [facility] Albumin 2.9(L) 3.2 - 5.0 g/dL LAB CHEMISTRY METHOD 06/07/2024 7:10 AM [facility] Total Bilirubin 0.5 0.0 - 1.4 mg/dL LAB CHEMISTRY METHOD 06/07/2024 7:10 AM [facility] Blood Venous blood specimen / Unknown Venipuncture / Unknown 06/07/2024 5:45 AM EST 06/07/2024 6:23 AM EST Malena Soto NP LAB BLOOD ORDERABLES Final Result [facility] [address] [place] [address], from Last 3 Months or Most Recently Relevant to Health Maintenance Insurance [employer] MEDICARE ADVANTAGE Advance Directives Documents on File Type Date Recorded Patient Dental Practice Manager Expl anation Advance Directives and Living Will [...] currently active code status orders. Care Teams City Collector Relationship Specialty Start Date End Date Sami Najera MD [address] [place] [address] [place] [id number] PCP - General Internal Medicine 05/19/24
== END 2024-12-22 12:32 | disposition home or self-care (01) ==
LOC: HO.HMCH 10:56
PROVIDERS: PCP Internal Medicine; Visit Provider Internal Medicine
DX: I63.9 Cerebral infarction, unspecified (principal); I69.359 Hemiplegia and hemiparesis following cerebral infarction affecting unspecified side; Z68.32 Body mass index [BMI] 32.0-32.9, adult; E66.9 Obesity, unspecified; E78.2 Mixed hyperlipidemia; I10 Essential (primary) hypertension; G47.00 Insomnia, unspecified; F41.9 Anxiety disorder, unspecified; Z87.891 Personal history of nicotine dependence

== ENCOUNTER → 2024-12-22 10:56 | Outpatient (BNVA) | payer MEDICARE, SELFPAY | PROVIDERS: PCP Internal Medicine; Visit Provider Internal Medicine | DX: I10 Essential (primary) hypertension (principal); E78.2 Mixed hyperlipidemia; G47.00 Insomnia, unspecified; F41.9 Anxiety disorder, unspecified; E66.9 Obesity, unspecified; I69.351 Hemiplegia and hemiparesis following cerebral infarction affecting right dominant side; Z87.891 Personal history of nicotine dependence; Z68.32 Body mass index [BMI] 32.0-32.9, adult | CPT/HCPCS: 96127; 99212 ==

== ENCOUNTER 2025-01-26 13:36 | Outpatient (AMB) | payer MEDICARE, SELFPAY ==
--- NOTE | 2025-01-26 13:43 | MHC.OFFVIS ---
Intake Visit Reasons: 6 Months f/u Allergies acetaminophen (Tylenol) Allergy (Unknown, Verified 12/22/24 11:38) rash aspirin Allergy (Unknown, Verified 12/22/24 11:38) bruising atorvastatin Allergy (Unknown, Verified 12/22/24 11:38) muscle aches, forgetfulness glipizide Allergy (Unknown, Verified 12/22/24 11:38) anxiety melatonin Adverse Reaction (Intermediate, Verified 12/22/24 11:38) Nightmare rosuvastatin Adverse Reaction (Intermediate, Verified 12/22/24 11:38) Anxiety HPI Comments Details: 74-year-old man with a past history of diabetes, morbid obesity, migraines, spinal stenosis with chronic left lower extremity weakness, and hyperlipidemia had a right basis pontis ischemic infarct in Apr. He is presenting with insomnia and stress-related issues following a previous stroke. Post-stroke, he has encountered difficulty maintaining sleep despite using sleeping medications, which initially offered no relief. Introduction of doxepin by his primary care provider has been beneficial in improving sleep quality, though he occasionally does not take his dose if feeling alright. He denies any swallowing difficulties. 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 Since the stroke, he has made significant recovery in physical function; he can walk and even hike but prefers using a cane on uncertain surfaces for additional balance. He recalls challenges specific to one side, which was more affected by the stroke. 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 [facility] Medical History (Updated 01/25/25 @ 14:44 by Mariza Peres MA) Hypertension MCI (mild cognitive impairment) Intracranial atherosclerosis Multifactorial dementia Alzheimer's dementia Cerebral infarct Cerebral microvascular disease Migraine with aura Mixed hyperlipidemia Urinary frequency Obesity (BMI 30-39.9) Essential hypertension Ischemic cerebrovascular accident (CVA) Osteoporosis Migraine Anxiety Obesity Screening for colon cancer Screening for prostate cancer Screening for diabetes mellitus Hyperlipidemia Surgical History History of amputation of finger of right hand History of colonoscopy History of tooth extraction History of cholecystectomy History of surgery on arm History of repair of rotator cuff Family History Father CVD (cardiovascular disease) Mother Stroke Diabetes Brother Coronary artery sclerosis Social History Household Members: Spouse Housing: Other Housing Other:: [facility] Do you presently have visiting nurse or other home services: No Alcohol intake: never Patient Tobacco Use Status: Former Tobacco user Tobacco use type: Pipe e-Cigarette/Vaping Use: Never Used Second Hand Smoke Exposure: Yes service: Yes Current occupational 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 - Neurological: Denies swallowing difficulties, reports balance concerns specific to one side post-stroke. - Psychological: Reports feelings of stress. Physical Exam Neuro Other: Mental Status: Alert and oriented to person, place, and time. Normal attention. Normal spontaneous speech, fluency, and comprehension. No obvious issues with mood and memory. Affect is appropriate. Cranial Nerves: CN II: Visual merlos full to confrontation, visual acuity intact. CN III, IV, : Pupils equal, round, reactive to light and accommodation. Extraocular movements are normal. CN V: Facial sensation is normal. CN VII: Facial movements symmetrical. CN VIII: Hearing intact to bedside conversation is normal. CN IX, X: Palate elevates symmetrically. CN XI: Shoulder shrug and head turn symmetrical. CN XII: Tongue midline without atrophy or fasciculations. Motor: Bulk and tone normal in all extremities. No significant muscle weakness in arms and legs. No drift. Reflexes: DTRs are brisk in left arm and leg. Coordination: Emnspk-hd-pfon and kgrx-hq-yqam testing normal. No dysmetria. Gait and Station: No obvious gait abnormality. No ataxia or instability. Sensory: Intact to light touch, pinprick, and vibration. Romberg is negative. Extrapyramidal: Full facial expressions and blinking. No rigidity. Movements are appropriate with no tremor or abnormality. Speech: Normal; no dysarthria or tremor. Assessment & Plan Assessment & Plan (1) Ischemic cerebrovascular accident (CVA): Code(s): I63.9 - Cerebral infarction, unspecified Category: Medical Plan Impression: a: Right pontine atherothrombotic ischemic infarct in April of 2024. He has recovered quite well and few days ago height [place]. b: Psychosocial insomnia c: Intracranial atherosclerotic disease Recommendations: 1. Continue baby aspirin daily, blood pressure control, and statin 2. Doxepin at night has already help him. 3. Continue to be active with common sense precautions and caution. Coding Level of Care Code Est Pt Level 4 (25840) Diagnoses Ischemic cerebrovascular accident (CVA) I63.9
== END 2025-01-26 13:53 | disposition home or self-care (01) ==
LOC: HO.HSM 13:37
PROVIDERS: PCP Internal Medicine; Referring Provider Internal Medicine; Visit Provider Psychiatry & Neurology Neurology
DX: I63.9 Cerebral infarction, unspecified (principal)
CPT/HCPCS: 99214

== ENCOUNTER → 2025-01-26 13:36 | Outpatient (BNVA) | payer MEDICARE, SELFPAY | PROVIDERS: PCP Internal Medicine; Referring Provider Internal Medicine; Visit Provider Psychiatry & Neurology Neurology | DX: Z86.73 Personal history of transient ischemic attack (TIA), and cerebral infarction without residual deficits (principal) | CPT/HCPCS: 99212 ==

== ENCOUNTER 2025-02-28 10:17 | Outpatient (REF) | payer MEDICARE, SELFPAY ==
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
[2025-02-28 12:21] LABS: Prostate Specific Antigen 1.02 ng/mL (<0.05-4.0)
== END 2025-02-28 10:18 | disposition home or self-care (01) ==
LOC: HO.LAB 10:17
PROVIDERS: PCP Internal Medicine; Visit Provider Nurse Practitioner Family
DX: Z12.5 Encounter for screening for malignant neoplasm of prostate (principal); R35.0 Frequency of micturition; R39.15 Urgency of urination
CPT/HCPCS: 36415; 84153

== ENCOUNTER 2025-03-06 13:27 | Outpatient (REF) | payer MEDICARE, SELFPAY | END 2025-03-06 13:28 | disposition home or self-care (01) | LOC: HO.US 13:27 | PROVIDERS: PCP Internal Medicine; Visit Provider Nurse Practitioner Family | DX: R35.0 Frequency of micturition (principal); R39.15 Urgency of urination | CPT/HCPCS: 76770 ==

== ENCOUNTER → 2025-03-06 13:29 | Outpatient (BNV) | payer MEDICARE, SELFPAY | PROVIDERS: PCP Internal Medicine; Visit Provider Radiology Diagnostic Radiology | DX: R35.0 Frequency of micturition (principal) | CPT/HCPCS: 76770 ==

== ENCOUNTER 2025-03-14 14:43 | Outpatient (AMB) | payer MEDICARE, SELFPAY ==
--- NOTE | 2025-03-14 14:46 | A.OFFVIS_ITS ---
Intake Visit Reasons: 3m/US/PSA/PVR Intake Note: Patient is present for 3M/US/PSA/PVR Urology Medication:NONE Antibiotic Allergy:NONE Blood Thinner:ASPIRIN TODAY'S PVR:37ML'S Drapery Counselor Required: No Allergies acetaminophen (Tylenol) Allergy (Unknown, Verified 03/14/25 14:49) rash aspirin Allergy (Unknown, Verified 03/14/25 14:49) bruising atorvastatin Allergy (Unknown, Verified 03/14/25 14:49) muscle aches, forgetfulness glipizide Allergy (Unknown, Verified 03/14/25 14:49) anxiety melatonin Adverse Reaction (Intermediate, Verified 03/14/25 14:49) Nightmare rosuvastatin Adverse Reaction (Intermediate, Verified 03/14/25 14:49) Anxiety HPI Comments Details: Bob is a very pleasant 74-year-old male patient of Dr. Bains who was accompanied by Enzo at toays office visit. He has a past medical history of urinary frequency, obesity, hypertension, CVA, osteoporosis, migraines, hyperlipidemia, and anxiety. He presents to the office today for follow-up. Of note, patient was seen approximately 3 months ago as a new patient for ongoing lower urinary tract symptoms he has been experiencing at which time a retroperitoneal ultrasound and PSA were ordered for further assessment evaluation. These results were reviewed and communicated with the patient today. 03/14 bilateral kidneys with no hydronephrosis, renal calculi, and or renal masses noted bilaterally. The urinary bladder is unremarkable. Prostate measures 29 mL. Postvoid bladder volume 266mls. PSAs are as follows: PSA: 12/08 1.1, 03/14 1.0 We did discuss incomplete bladder emptying at length. We did discussed urinary tract infections in the setting of incomplete bladder emptying. In office urinalysis results reviewed with the patient today. PVR 37 mL. We did discussed lifestyle modifications to assist with incomplete bladder emptying such as sitting to void to relax pelvis and or double voiding. We also discussed further treatment options such as trial of alpha-sai. We also discussed in office cystoscopy and or urodynamics for further assessment evaluation. He would like to continue with lifestyle modifications at this time. When asked he denies hematuria, dysuria, foul smelling urine, changes to urinary stream, flank pain, fever, and or chills. All questions were answered. 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 He discusses the recent steroid injection for his ongoing back pain that he has found helpful and has been able to be more active without pain. He otherwise offers no other issues or concerns.. In review of patient's chart it appears urine culture: 12/12 Streptococcus viridans group/coag-negative Staphylococcus [facility] Medical History Hypertension MCI (mild cognitive impairment) Intracranial atherosclerosis Multifactorial dementia Alzheimer's dementia Cerebral infarct Cerebral microvascular disease Migraine with aura Mixed hyperlipidemia Urinary frequency Obesity (BMI 30-39.9) Essential hypertension Ischemic cerebrovascular accident (CVA) Osteoporosis Migraine Anxiety Obesity Screening for colon cancer Screening for prostate cancer Screening for diabetes mellitus Hyperlipidemia Surgical History History of amputation of finger of right hand History of colonoscopy History of tooth extraction History of cholecystectomy History of surgery on arm History of repair of rotator cuff Family History Father CVD (cardiovascular disease) Mother Stroke Diabetes Brother Coronary artery sclerosis Social History Household Members: Spouse Housing: Other Housing Other:: [facility] Do you presently have visiting nurse or other home services: No Alcohol intake: never Patient Tobacco Use Status: Former Tobacco user Tobacco use type: Pipe e-Cigarette/Vaping Use: Never Used Second Hand Smoke Exposure: Yes service: Yes Current occupational 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 Cognitive needs: Yes ( cane) Hearing needs: Yes Vision needs: Yes (glasses) Review of Systems Const All systems reviewed & are unremarkable except as noted in HPI and below Physical Exam Const General: cooperative, healthy appearing, comfortable, no acute distress, well developed, alert and awake Orientation/consciousness: patient oriented x3 Limitations: no limitations HEENT Head: Yes normal to inspection, Yes normocephalic and Yes atraumatic Ears: hearing grossly normal bilaterally Eyes General: appearance normal, both eyes and all related structures Neck Neck: Yes normal visual inspection and Yes trachea midline Chest Chest palpation & inspection: normal inspection of the chest Resp Effort & Inspection: normal respiratory effort and able to speak in complete sentences Cardio Rate: regular rate GI Inspection: Yes normal to inspection General: Yes no CVA tenderness Back/Spine/Pelvis Back: no CVA tenderness Skin General skin exam: no rashes or lesions noted Neuro General: patient oriented x3 Extrem General: Yes normal to inspection Psych Appearance: grossly normal and well kempt Mental Status: mental status grossly normal Speech and movement: Normal speech and movement present and Clear speech present Affect: normal affect Attitude: cooperative Thought process: Normal thought process present Thought content: Normal thought content present Insight: Fair insight present (Psych) Judgement: Fair judgement present (Psych) Office Procedures Post Void Residual Post Residual Void Post Void Residual (PVR): 37 64031-Ionc Void Residual by ultrasound Results AMB Urinalysis, Automated UA Leukoctes 0 Jonas/uL Last Edit by JIM López on 03/14/25 15:00 UA Nitrite Negative Last Edit by JIM López on 03/14/25 15:00 UA Urobilinogen 0.2 mg/dL Last Edit by JIM López on 03/14/25 15:0 0 UA Protein 0 mg/dL Last Edit by JIM López on 03/14/25 15:00 UA pH 6.0 Last Edit by JIM López on 03/14/25 15:00 UA Blood 0 Demond/uL Last Edit by JIM López on 03/14/25 15:00 UA Specific [place] 1.025 Last Edit by JIM López on 03/14/25 15: 00 UA Ketone Negative Last Edit by JIM López on 03/14/25 15:00 UA Bilirubin 0 mg/dL Last Edit by JIM López on 03/14/25 15:00 UA Glucose 0 mg/dL Last Edit by JIM López on 03/14/25 15:00 Results Reviewed Results Reviewed: Laboratory Last Values Urine pH (Auto) 6.0 03/14/25 14:55 Specific [place] (Auto) 1.025 03/14/25 14:55 Urine Protein (Auto) 0 mg/dL 03/14/25 14:55 Glucose (UA)(Auto) 0 mg/dL 03/14/25 14:55 Urine Ketones (Auto) Negative 03/14/25 14:55 Urine Blood (Auto) 0 Demond/uL 03/14/25 14:55 Urine Nitrite (Auto) Negative 03/14/25 14:55 Urine Bilirubin (Auto) 0 mg/dL 03/14/25 14:55 Urine Urobilinogen (Auto) 0.2 mg/dL 03/14/25 14:55 Leukocyte Esterase (Auto) 0 Jonas/uL 03/14/25 14:55 Date of Service: 03/06/25 Procedure(s): US retroperitoneal comp FINDINGS: Right kidney: The right kidney measures 11.8 x 5.5 x 4.7 cm. Renal parenchymal echotexture and thickness are normal. There are no masses. There is no hydronephrosis or renal calculi. Left Kidney: The left kidney measures 11.2 x 5.5 x 4.2 cm. Renal parenchymal echotexture and thickness are normal. There are no masses. There is no hydronephrosis or renal calculi. The urinary bladder is unremarkable. Bilateral ureteral jets are identified. Before voiding, the urinary bladder measured 13.0 x 7.7 x 10.4 cm, for an estimated volume of 544 mL. After voiding, the urinary bladder measured 10.9 x 5.2 x 9.0 cm, for an estimated volume of 266 mL. The prostate measures 4.1 x 3.2 x 4.3 cm, for an estimated volume of 29.0 mL. IMPRESSION: 1. Unremarkable retroperitoneal ultrasound. 2. Post void bladder residual of 266 mL. 3. Prostate volume of 29.0 mL. Assessment & Plan Assessment & Plan (1) Incomplete bladder emptying: Code(s): R33.9 - Retention of urine, unspecified Category: Medical Plan In office urinalysis results reviewed with the patient today; as noted above. PVR 37 mL. Most recent PSA results reviewed with the patient today; as noted above. Most recent retroperitoneal ultrasound results reviewed with the patient today; as noted above. We did discussed further treatment options of incomplete bladder emptying as well as incomplete bladder emptying and urinary tract infections; we discussed risks and benefits of these interventions. We did discussed potential near future in office cystoscopy and or urodynamics for further assessment evaluation. We discuss trial of alpha-sai to assist with bladder emptying. All questions were answered. Will continue with lifestyle modifications at this time. Follow-up in 3 months with PVR; or sooner with any issues, concerns, and or questions. Orders: Orders AMB Urinalysis Automated Today Z13.9 - Encounter for screening, unspecified Patient Instructions: The patient had an opportunity to ask questions regarding the treatment plan. All questions were answered. Physical exam, labs, and imaging were discussed and reviewed in detail. As well as risks, benefits, and discussion of treatment choices. No major barriers to understanding were identified. The patient express ed understanding and agreement with the above treatment plan. The patient was made aware they should contact our office by phone for worsening of their current condition, the appearance of new symptoms, or with any questions or concerns. Compliance is encouraged with any medications and follow up testing that is ordered. It is a privilege to be allowed the opportunity to participate in? your urological care.? Again, if you have any questions or concerns If you have any questions or concerns please do not hesitate to contact me. The office is [phone]. This note is constructed using voice recognition software. While every effort has been made to ensure accuracy hvac manager errors may have been included. Yours sincerely, CHRISTIE Colon Coding Level of Care Code Est Pt Level 3 (38573) Complex visit Add On G2211 Diagnoses Incomplete bladder emptying R33.9 CPT Codes Post Residual Void - PVR CPT Code: 94064-Hbge Void Residual by ultrasound ([id number])
--- OUTSIDE RECORDS SUMMARY | 2025-03-14 18:32 | XMS_ITS | Clinical Summary ---
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 Care Teams Flavorer Relationship Specialty Start Date End Date Sami Najera MD [address] [place] [address] [place] [id number] PCP - General Internal Medicine 05/19/24
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
== END 2025-03-14 15:34 | disposition home or self-care (01) ==
LOC: HO.HUSH 14:44
PROVIDERS: PCP Internal Medicine; Visit Provider Nurse Practitioner Family
DX: Z13.9 Encounter for screening, unspecified (principal); R33.9 Retention of urine, unspecified
CPT/HCPCS: 99213; G2211

== ENCOUNTER → 2025-03-14 14:43 | Outpatient (BNVA) | payer MEDICARE, SELFPAY | PROVIDERS: PCP Internal Medicine; Visit Provider Nurse Practitioner Family | DX: R33.9 Retention of urine, unspecified (principal); N39.0 Urinary tract infection, site not specified | CPT/HCPCS: 51798; 81003; 99212 ==

== ENCOUNTER 2025-04-17 11:22 | Outpatient (REF) | payer MEDICARE, SELFPAY ==
[2025-04-17 11:40] LABS: MANUAL DIFF FLAG NO
[2025-04-17 12:06] LABS: Hematocrit 42.8 % (42.0-52.0); Hemoglobin 14.2 g/dl (14.0-18.0); Imm Gran Abs Auto 0.02 X10*3/uL (0.00-0.03); Imm Gran Pct Auto 0.4 % (0.0-0.4); Lymphocytes Absolute Auto 1.9 X10*3/uL (1.2-4.9); Mean Corpuscular HGB Conc 33.2 g/dl (31.0-36.0); Mean Corpuscular Hemoglobin 29.4 pg (27.0-33.0); Mean Corpuscular Volume 88.6 fL (80.0-98.0); NRBC Abs Auto 0.000 X10*3/uL (0.0-0.012); NRBC Pct Auto 0.0 /100WBC (0.0-0.2); Platelet Count 275 X10*3/uL (160-400); Red Blood Count 4.83 X10*6/uL (4.60-5.80); White Blood Count 5.4 X10*3/uL (4.8-10.8)
[2025-04-17 12:16] LABS: Appearance Urine Clear; Glucose Urine UA Negative (Negative); PH 7.0 (5.0-9.0); Specific Gravity - Urine 1.015 (1.005-1.025); UMIC TRIGGER UACC YES
[2025-04-17 12:33] LABS: Alanine Aminotransferase 25 U/L (0-40); Albumin Level 3.9 g/dL (3.5-5.0); Alkaline Phosphatase 99 U/L (39-117); Anion Gap 8 (12-20); Aspartate Amino Transferase 38 U/L (5-37); Blood Urea Nitrogen 16 mg/dL (9-16); Calcium 9.3 mg/dL (8.4-10.2); Carbon Dioxide 29 mmol/L (22-29); Chloride 109 mmol/L (96-108); Cholesterol 180 mg/dL (<200); Estimated Glomerular Filt Rate > 60; HDL Cholesterol 33 mg/dL (>40); Potassium 4.1 mmol/L (3.3-5.1); Sodium 142 mmol/L (135-145); Total Protein 7.0 g/dL (6.5-8.0); Triglycerides 108 mg/dL (<150)
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
== END 2025-04-17 11:23 ==
LOC: HO.LAB 11:22
PROVIDERS: PCP Internal Medicine; Visit Provider Internal Medicine
DX: R30.0 Dysuria (principal); D64.9 Anemia, unspecified; E78.00 Pure hypercholesterolemia, unspecified
CPT/HCPCS: 36415; 80053; 80061; 81001; 85025